=== PATIENT | male | born 1955 | race Caucasian/White ===

== ENCOUNTER 2016-07-27 18:13 | Inpatient (IN) | payer OTHER ==
[2016-07-27] MEDS ORDERED: VANCOMYCIN 1,000 MG in SODIUM CHLORIDE 0.9% 250 ML IVPB ONE (19:05)
--- NOTE | 2016-07-27 19:11 | ED ---
General Adult HPI - General Chief complaint: Skin/Abscess/Foreign Body Stated complaint: infection Time Seen by Provider: 07/27/16 18:38 Source: patient, family, RN notes reviewed, old records reviewed Mode of arrival: ambulatory Limitations: no limitations - History of Present Illness Initial comments: Chief complaint and history of present illness a 61-year-old male with recurrent chronic infections both lower extremities. Patient reports here because his visiting nurse said he has to come and the wounds have become very foul-smelling. Patient reports he's been through wound clinic before, eventually gets better and then reoccurs. - Related Data Home Medications Medication Instructions Recorded Confirmed Fenofibrate Nanocrystallized 145 mg PO DAILY 07/27/16 07/27/16 [Tricor] Finasteride [Proscar] 5 mg PO HS 07/27/16 07/27/16 Gabapentin [Neurontin] 300 mg PO BID 07/27/16 07/27/16 Insulin Glargine,Hum.rec.anlog 60 unit SQ HS 07/27/16 07/27/16 [Lantus Solostar] Metoprolol Tartrate [Lopressor] 100 mg PO BID 07/27/16 07/27/16 Niacin [Niacin ER] 500 mg PO DAILY 07/27/16 07/27/16 Tamsulosin HCl [Flomax] 0.4 mg PO QAM 07/27/16 07/27/16 Warfarin [Coumadin] 1.25 mg PO HS 07/27/16 07/27/16 Allergies Allergy/AdvReac Type Severity Reaction Status Date / Time sulfamethoxazole Allergy Rash/Hives Verified 07/27/16 19:54 [From Bactrim] trimethoprim [From Bactrim] Allergy Rash/Hives Verified 07/27/16 19:54 Review of Systems ROS Statement: Those systems with pertinent positive or pertinent negative responses have been documented in the HPI. Review of systems. Patient denying any headache or visual acuity changes denies chest pain or shortness of breath. Denies abdominal pain. No nausea no vomiting no diarrhea. Patient reports foul-smelling infections from his waist down. He has rather extensive Radhika-type dermatitis from his groin to his buttocks and both lower extremities are wrapped which are being wrapped by a visiting nurse. Cultures being taken of that area. All systems reviewed Past medical problems significant for chronic infections lower extremities. He' s had kidney stones in the past, A. fib on a blood thinner. Insulin-dependent diabetes mellitus, I disorder, hearing disorder hyperlipidemia, hypertension, osteoarthritis, BPH, sleep apnea on CPAP, PVD, patient's surgeries include bladder, abdominal hernia repair tonsillectomy I&D abdominal abscesses. Patient has ALLERGIES to sulfa. Family history no cancers. He does smoke heavily. So heavily that he falls asleep with his cigarette in his hand blackwell his fingers. Obvious risk of a home fire etc. discussed with patient and at bedside. Patient drink alcohol socially. ROS Other: All systems not noted in ROS Statement are negative. Past Medical History Past Medical History: Atrial Fibrillation, Diabetes Mellitus, Eye Disorder, Hearing Disorder / Deafness, Hyperlipidemia, Hypertension, Osteoarthritis (OA), Prostate Disorder, Sleep Apnea/CPAP/BIPAP, Vascular Disorder Additional Past Medical History / Comment(s): Pt fell 01/06/16 and has R humeral fracture and is in a sling. Other HX: NIDDM, irritable bowel syndrome, numerous wounds bilateral legs and feet and an abdominal wound after previous hernia surgery with mesh - has been tx in wound center and has had several debridements, currently being treated in wound center for bilateral lower leg ulcers, charcot Lfoot, hx of diabetic villareal grade 2 bilateral foot ulcers, abdominal wall ulceration with I&D, urinary calculus., BPH, bilateral hands and feet peripheral neuropathy, L eye astigmatism, edentulous. History of Any Multi-Drug Resistant Organisms: MRSA Date of last positivie culture/infection: 12/29/15 MDRO Source:: legs Past Surgical History: Bladder Surgery, Hernia Repair, Tonsillectomy Additional Past Surgical History / Comment(s): I and D abdominal wall ulcer s/p abdominal hernia repair with mesh-infected post op and mesh exposed, wound center tx for bilateral feet ulcers-healed and discharged 03/25/14, current wound center tx for bilateral lower leg ulcers, picc line insertion and removal , cystoscopy which was unsuccessful for removing bladder stone. Past Anesthesia/Blood Transfusion Reactions: No Reported Reaction Past Psychological History: Anxiety, Depression Additional Psychological History / Comment(s): Remains an ongoing daily tobacco smoker. Does have history of alcohol use. Denies difficulty with alcohol use. Denies recreational drug use.He is on medical long term.To begin travels. Noanimalexposures. Ambulates with cane. Drives short distances. Smoking Status: Current every day smoker Past Alcohol Use History: Occasional Additional Past Alcohol Use History / Comment(s): Pt states he started smoking in 1972 and is about a ppd smoker. Pt states he drinks every couple days- a couple whiskeys. Past Drug Use History: None Reported - Past Family History Brother(s) Family Medical History: Cancer Additional Family Medical History / Comment(s): Breast cancer Father Family Medical History: Diabetes Mellitus Additional Family Medical History / Comment(s): Father of a brain tumor in his early 80s Mother Family Medical History: No Reported History Additional Family Medical History / Comment(s): Still living. General Exam - General Exam Comments Initial Comments: General: The patient is awake and alert, complaining of chronic discomfort to his lower extremities. Foul-smelling infections from Radhika-type infection through his genitalia down to his knee and skin infections on his lower extremities right worse than left. Vital signs show temperature 99.3 pulse 100 her story rate 20 pulse ox on percent room air blood pressure 136/82 Eye: Pupils are equal, round and reactive to light, extra-ocular movements are intact ; there is normal conjunctiva bilaterally. No signs of icterus. Ears, nose, mouth and throat: There are moist mucous membranes and no oral lesions. Neck: The neck is supple, there is no tenderness . Cardiovascular: There is a regular rate and rhythm. No murmur, rub or gallop is appreciated. Respiratory: Lungs are clear to auscultation, respirations are non-labored, breath sounds are equal. No wheezes, stridor, rales, or rhonchi. Gastrointestinal: Patient had abdominal surgery with a mesh placed for hernia repair in the midline. Part of the mesh is dry and sticking above the skin. He was told that this is a cosmetic at this time if he wants revision medial [place] for further evaluation. Patient states he is okay with the way it is. No signs of infection in this area Back: There is no tenderness to palpation in the midline. There is no obvious deformity. No rashes noted. Musculoskeletal: The patient has Radhika-type infection from groin through the scrotum to the buttock area to the proximal thighs. Also foul-smelling infections to his lower extremities right worse than left. Neurological: CN II-XII intact, There are no obvious motor or sensory deficits. Coordination appears grossly intact. Speech is normal. Patient states able to ambulate but with assistance. Skin: As noted above Limitations: no limitations Course Vital Signs 07/27/16 18:24 Temperature 99.3 F Pulse Rate 100 Respiratory 20 Rate Blood Pressure 136/82 O2 Sat by Pulse 96 Oximetry Medical Decision Making - Medical Decision Making Medical decision making; case discussed with Dr. Franks patient was admitted to his service. Labs show white count 13.3 hemoglobin 13, crit 42., Potassium 4.2 BUN 17 creatinine 1.0 GFR 60. Glucose 175. - Lab Data Result diagrams: 07/27/16 19:15 07/27/16 19:15 Lab Results 07/27/16 07/27/16 Range/Units 19:15 19:15 WBC 13.3 H (3.8-10.6) k/uL RBC 4.23 L (4.30-5.90) m/uL Hgb 13.3 (13.0-17.5) gm/dL Hct 42.1 (39.0-53.0) % MCV 99.5 (80.0-100.0) fL MCH 31.6 (25.0-35.0) pg MCHC 31.7 (31.0-37.0) g/dL RDW 15.7 H (11.5-15.5) % Plt Count 497 H (150-450) k/uL Neutrophils % 80 % Lymphocytes % 10 % Monocytes % 5 % Eosinophils % 2 % Basophils % 0 % Neutrophils # 10.6 H (1.3-7.7) k/uL Lymphocytes # 1.4 (1.0-4.8) k/uL Monocytes # 0.7 (0-1.0) k/uL Eosinophils # 0.2 (0-0.7) k/uL Basophils # 0.1 (0-0.2) k/uL Macrocytosis Slight Sodium 141 (137-145) mmol/L Potassium 4.2 (3.5-5.1) mmol/L Chloride 101 (98-107) mmol/L Carbon Dioxide 30 (22-30) mmol/L Anion Gap 10 mmol/L BUN 17 (9-20) mg/dL Creatinine 1.00 (0.66-1.25) mg/dL Est GFR (MDRD) Af Amer >60 (>60 ml/min/1.73 sqM) Est GFR (MDRD) Non-Af >60 (>60 ml/min/1.73 sqM) Glucose 175 H (74-99) mg/dL Calcium 8.6 (8.4-10.2) mg/dL Total Bilirubin 0.8 (0.2-1.3) mg/dL AST 26 (17-59) U/L ALT 21 (21-72) U/L Alkaline Phosphatase 88 (38-126) U/L Total Protein 6.9 (6.3-8.2) g/dL Albumin 3.2 L (3.5-5.0) g/dL Disposition Clinical Impression: Cellulitis of left lower extremity Disposition: ADMITTED IP TO THIS HOSP Condition: Serious
[2016-07-27] MEDS ORDERED: AMPICILLIN-SULBACTAM 3 GM in SODIUM CHLORIDE 0.9% 100 ML IVPB STA (19:12)
[2016-07-27 19:46] LABS: Basophils # (A) 0.1 k/uL (0-0.2); Basophils % (A) 0 %; CHCM 32.4; Eosinophils # (A) 0.2 k/uL (0-0.7); Eosinophils % (A) 2 %; HCT 42.1 % (39.0-53.0); HDW 3.23; HGB 13.3 gm/dL (13.0-17.5); Luc # (Auto) 0.34; Luc % (Auto) 3; Lymphocytes # (A) 1.4 k/uL (1.0-4.8); Lymphocytes % (A) 10 %; MCH 31.6 pg (25.0-35.0); MCHC 31.7 g/dL (31.0-37.0); MCV 99.5 fL (80.0-100.0); Macrocytosis Slight; Mean Platelet Volume 7.1; Monocytes # (A) 0.7 k/uL (0-1.0); Monocytes % (A) 5 %; Neutrophils # (A) 10.6 k/uL (1.3-7.7); Neutrophils % (A) 80 %; RBC 4.23 m/uL (4.30-5.90); RDW 15.7 % (11.5-15.5); WBC 13.3 k/uL (3.8-10.6)
[2016-07-27 20:02] LABS: ALT 21 U/L (21-72); AST 26 U/L (17-59); Alkaline Phosphatase 88 U/L (38-126); Anion Gap 10 mmol/L; Blood Urea Nitrogen 17 mg/dL (9-20); Calcium 8.6 mg/dL (8.4-10.2); Carbon Dioxide 30 mmol/L (22-30); Chloride 101 mmol/L (98-107); Glucose 175 mg/dL (74-99); Non-African American GFR(MDRD) >60 (>60 ml/min/1.73 sqM); Potassium 4.2 mmol/L (3.5-5.1); Sodium 141 mmol/L (137-145); Total Bilirubin 0.8 mg/dL (0.2-1.3); Total Protein 6.9 g/dL (6.3-8.2)
[2016-07-27] MEDS ORDERED: NALOXONE 0.4 MG/ML 1 ML VIAL IV PRN (20:10)
[2016-07-27 20:39] LABS: Hemoglobin A1C 6.1 % (4.2-6.1)
[2016-07-27] MEDS ORDERED: WARFARIN 1.25 MG TAB PO SCH (21:00)
[2016-07-27 21:46] LABS: Glucose,Whole Blood 115 mg/dL (75-99)
[2016-07-27] MEDS: SODIUM CHLORIDE 0.9% 1,000 ML IV SCH (22:37)
[2016-07-27] MEDS: FINASTERIDE 5 MG TAB PO SCH (22:41)
[2016-07-27 22:42] LABS: INR 3.1 (<1.1); Prothrombin Time 30.1 sec (9.0-12.0)
[2016-07-27] MEDS: INSULIN LISPRO (humaLOG) 300 UNIT/3 ML VIAL SQ SCH (22:42)
[2016-07-27] MEDS: GABAPENTIN 300 MG CAP PO SCH (22:42)
[2016-07-27] MEDS: METOPROLOL TARTRATE 50 MG TAB PO SCH (22:42)
[2016-07-27 23:23] VITALS: BMI 43.4
[2016-07-27] MEDS: HYDROcodone/APAP 5-325MG 1 EACH TAB PO PRN (23:56)
[2016-07-28] MEDS: NICOTINE 14MG/24HR PATCH TRANSDERM SCH ×3 (01:18→19:10)
[2016-07-28] MEDS: AMPICILLIN-SULBACTAM 3 GM in SODIUM CHLORIDE 0.9% 100 ML IVPB SCH ×2 (04:00→10:44)
[2016-07-28] MEDS: HYDROcodone/APAP 5-325MG 1 EACH TAB PO PRN ×3 (05:56→19:09)
[2016-07-28] MEDS: INSULIN LISPRO (humaLOG) 300 UNIT/3 ML VIAL SQ SCH ×4 (07:37→21:25)
[2016-07-28] MEDS: FENOFIBRATE 160 MG TAB PO SCH (07:38)
[2016-07-28] MEDS: NIACIN TR 500 MG CAPSULE.ER PO SCH (07:38)
[2016-07-28] MEDS: GABAPENTIN 300 MG CAP PO SCH ×2 (07:38→21:23)
[2016-07-28] MEDS: METOPROLOL TARTRATE 50 MG TAB PO SCH ×2 (07:38→21:23)
[2016-07-28] MEDS: TAMSULOSIN 0.4 MG CAP.ER.24H PO SCH (07:45)
[2016-07-28 07:47] LABS: Glucose,Whole Blood 125 mg/dL (75-99)
--- NOTE | 2016-07-28 08:31 | P.HPIM ---
History of Present Illness H&P Date: 07/28/16 Chief Complaint: Bilateral lower extremity cellulitis. This is a history and physical 61-year-old white male who struggles with recurrent and chronic cellulitis. He was placed on antibiotics recently. I typically have given the patient Levaquin. The patient states he is doing quite well until about 2 weeks ago. Currently, he tends to have a very unkempt environment and struggles with significant cleanliness at times. Dr. Kaur has appropriately treated the patient in the past. The patient states fever with chills. No significant chest pain. No shortness of breath. Blood sugar/ diabetes is fairly well controlled. He has an underlying history of peripheral venous insufficiency. Because of his worsening leg and fever with chills, the patient was evaluated in emergency room and appropriately admitted. Review of Systems Constitutional: Reports fever, Reports sweats Eyes: denies blurred vision, denies pain Ears, nose, mouth and throat: Denies headache, Denies sore throat Cardiovascular: Denies chest pain, Denies shortness of breath Respiratory: Denies cough Gastrointestinal: Denies abdominal pain, Denies diarrhea, Denies nausea, Denies vomiting Integumentary: Reports as per HPI, Reports sores Neurological: Denies numbness, Denies weakness Past Medical History Past Medical History: Atrial Fibrillation, Diabetes Mellitus, Eye Disorder, Hearing Disorder / Deafness, Hyperlipidemia, Hypertension, Osteoarthritis (OA), Prostate Disorder, Sleep Apnea/CPAP/BIPAP, Vascular Disorder Additional Past Medical History / Comment(s): Pt fell 01/06/16 R humeral fracture. Other HX: NIDDM, irritable bowel syndrome, numerous wounds bilateral legs and feet and an abdominal wound after previous hernia surgery with mesh - has been tx in wound center and has had several debridements, currently being treated in wound center for bilateral lower leg ulcers, charcot Lfoot, hx of diabetic villareal grade 2 bilateral foot ulcers, abdominal wall ulceration with I&D, urinary calculus., BPH, bilateral hands and feet peripheral neuropathy, L eye astigmatism, edentulous. History of Any Multi-Drug Resistant Organisms: MRSA Date of last positivie culture/infection: 12/29/15 MDRO Source:: legs Past Surgical History: Bladder Surgery, Hernia Repair, Tonsillectomy Additional Past Surgical History / Comment(s): I and D abdominal wall ulcer s/p abdominal hernia repair with mesh-infected post op and mesh exposed, wound center tx for bilateral feet ulcers-healed and discharged 03/25/14, current wound center tx for bilateral lower leg ulcers, picc line insertion and removal , cystoscopy which was unsuccessful for removing bladder stone. Past Anesthesia/Blood Transfusion Reactions: No Reported Reaction Past Psychological History: Anxiety, Depression Additional Psychological History / Comment(s): Remains an ongoing daily tobacco smoker. Does have history of occasional alcohol use. Denies difficulty with alcohol use. Denies recreational drug use.He is on medical skilled nursing.To begin travels. Noanimalexposures. Ambulates with cane. Drives short distances. Smoking Status: Current every day smoker Past Alcohol Use History: Occasional Additional Past Alcohol Use History / Comment(s): Pt states he started smoking in 1972 and is about a ppd smoker. Pt states he drinks every couple days- a couple whiskeys. Past Drug Use History: None Reported - Past Family History Brother(s) Family Medical History: Cancer Additional Family Medical History / Comment(s): Breast cancer Father Family Medical History: Diabetes Mellitus Additional Family Medical History / Comment(s): Father of a brain tumor in his early 80s Mother Family Medical History: No Reported History Additional Family Medical History / Comment(s): Still living. Medications and Allergies Home Medications Medication Instructions Recorded Confirmed Type Fenofibrate Nanocrystallized 145 mg PO DAILY 07/27/16 07/27/16 History [Tricor] Finasteride [Proscar] 5 mg PO HS 07/27/16 07/27/16 History Gabapentin [Neurontin] 300 mg PO BID 07/27/16 07/27/16 History Insulin Glargine,Hum.rec.anlog 60 unit SQ 07/27/16 07/27/16 History [Lantus Solostar] Metoprolol Tartrate [Lopressor] 100 mg PO BID 07/27/16 07/27/16 History Niacin [Niacin ER] 500 mg PO DAILY 07/27/16 07/27/16 History Tamsulosin HCl [Flomax] 0.4 mg PO QAM 07/27/16 07/27/16 History Warfarin [Coumadin] 1.25 mg PO HS 07/27/16 07/27/16 History Allergies Allergy/AdvReac Type Severity Reaction Status Date / Time sulfamethoxazole Allergy Rash/Hives Verified 07/27/16 19:54 [From Bactrim] trimethoprim [From Bactrim] Allergy Rash/Hives Verified 07/27/16 19:54 Physical Exam Vitals: Vital Signs Temp Pulse Pulse Resp BP BP BP 07/28/16 07:55 20 07/28/16 07:00 97.2 F L 99 20 126/92 07/27/16 23:00 97.4 F L 122 H 20 142/91 07/27/16 20:30 97.3 F L 92 20 148/76 Pulse Ox 07/28/16 07:55 07/28/16 07:00 95 07/27/16 23:00 96 07/27/16 20:30 94 L Intake and Output 07/27/16 07/28/16 07/28/16 22:59 06:59 14:59 Other: Voiding Method Toilet # Voids 1 Weight 141.5 kg - Constitutional General appearance: obese - EENT Eyes: EOMI - Neck Neck: no lymphadenopathy - Respiratory Respiratory: bilateral: CTA - Cardiovascular Rhythm: irregularly irregular Heart sounds: normal: S1, S2 - Gastrointestinal General gastrointestinal: soft, no tenderness - Integumentary Right greater than left lower stomach cellulitis. There is 2 ulcerations noted also. Integumentary: cellulitis - Neurologic Neurologic: CNII-XII intact Results CBC & Chem 7: 07/27/16 19:15 07/27/16 19:15 Labs: Abnormal Lab Results - Last 24 Hours (Table) 07/27/16 07/27/16 07/28/16 Range/Units 21:42 22:19 07:27 PT 30.1 H (9.0-12.0) sec POC Glucose (mg/dL) 115 H 125 H (75-99) mg/dL Thrombosis Risk Factor Assmnt - Choose All That Apply Any of the Below Risk Factors Present?: Yes Each Factor Represents 1 point: Obesity (BMI >25), Swollen legs (current) Other Risk Factors: Yes Each Risk Factor Represents 2 Points: Age 61-74 years Other congenital or acquired thrombophilia - If yes, enter type in comment: No Thrombosis Risk Factor Assessment Total Risk Factor Score: 4 Thrombosis Risk Factor Assessment Level: Moderate Risk Assessment and Plan (1) Cellulitis of left lower extremity Status: Acute (2) Cellulitis of right leg Status: Acute (3) Charcot foot due to diabetes mellitus Status: Acute (4) Smoking Status: Acute (5) Venous stasis ulcers of both lower extremities Status: Acute Plan: Consultation Dr. Kaur. The patient will be placed on appropriate vancomycin and appropriate Unasyn. Diabetes controlled with sliding scale. Check CBC and see me in a.m. PT/INR slightly elevated. We will check an a.m. and then most likely restart his Coumadin because of atrial fibrillation. Prognosis is guarded secondary to multiple comorbidities and history of somewhat Dirty environment. See orders otherwise.
[2016-07-28] MEDS ORDERED: PANTOPRAZOLE 40 MG/10 ML VIAL IV SCH (09:00)
[2016-07-28 09:11] LABS: HCT 42.1 % (39.0-53.0); HGB 12.7 gm/dL (13.0-17.5); MCH 30.8 pg (25.0-35.0); MCHC 30.1 g/dL (31.0-37.0); MCV 102.4 fL (80.0-100.0); RBC 4.11 m/uL (4.30-5.90); WBC 11.8 k/uL (3.8-10.6); WBC (Perox) 12.78
[2016-07-28 09:12] LABS: Anisocytosis Slight; Basophils # (A) 0.1 k/uL (0-0.2); Basophils % (A) 1 %; CH 31.5; CHCM 30.9; Eosinophils # (A) 0.3 k/uL (0-0.7); Eosinophils % (A) 3 %; HDW 3.13; Hypochromasia Moderate; Luc % (Auto) 2; Lymphocytes # (A) 1.3 k/uL (1.0-4.8); Lymphocytes % (A) 11 %; Macrocytosis Moderate; Mean Platelet Volume 7.6; Monocytes # (A) 0.5 k/uL (0-1.0); Monocytes % (A) 4 %; Neutrophils # (A) 9.5 k/uL (1.3-7.7); Neutrophils % (A) 81 %; RDW 16.1 % (11.5-15.5)
[2016-07-28 09:13] LABS: INR 3.8 (<1.1); Prothrombin Time 36.9 sec (9.0-12.0)
[2016-07-28] MEDS: SODIUM CHLORIDE 0.9% 1,000 ML IV SCH ×2 (10:44→21:24)
[2016-07-28 12:06] LABS: Glucose,Whole Blood 159 mg/dL (75-99)
[2016-07-28] MEDS: ceFAZolin 2 GM in SODIUM CHLORIDE 0.9% 100 ML IVPB SCH ×2 (16:44→23:19)
[2016-07-28 17:28] LABS: Glucose,Whole Blood 153 mg/dL (75-99)
[2016-07-28 21:09] LABS: Glucose,Whole Blood 171 mg/dL (75-99)
[2016-07-28] MEDS: FINASTERIDE 5 MG TAB PO SCH (21:23)
[2016-07-28] MEDS: WARFARIN 1.25 MG TAB PO SCH (21:24)
[2016-07-29] MEDS: HYDROcodone/APAP 5-325MG 1 EACH TAB PO PRN ×4 (00:52→20:22)
[2016-07-29] MEDS: ACETAMINOPHEN TAB 325 MG TAB PO PRN (03:24)
--- NOTE | 2016-07-29 07:12 | CONS ---
DATE OF CONSULTATION: 07/28/2016 REASON FOR CONSULTATION: Bilateral lower extremity venostasis ulcer and cellulitis. HISTORY OF PRESENT ILLNESS: The patient is a 61-year-old male with past medical history significant for recurrent venostasis ulcer to the lower extremities and cellulitis where the patient had been treated in the [facility] [place] and last evaluated by Dr. Danny dent in February 2016. Patient said the wound has healed by then. However, over the last few weeks it had become more swollen and red. He did have some blister that ruptured and superficial ulceration. Patient complaining of significant drainage. Foul smelling. The patient had been evaluated by the home care nurse who advised the patient to go to the hospital. The patient denies any high grade fever, though did have some chills and did have some dull pain in the legs, 2 to 3 out of 10 and no radiation. Patient has been started on Unasyn. ID was consulted for further recommendation regarding antibiotic therapy. REVIEW OF SYSTEMS: CONSTITUTIONAL: Positive for weakness and chills. EYES: No complaint. ENT: No complaint. RESPIRATORY: Shortness of breath. CARDIOVASCULAR: Shortness of breath. Lower extremity swelling. GENITOURINARY: No complaint. GASTROINTESTINAL: No complaint. MUSCULOSKELETAL: No complaint. INTEGUMENTARY: As per HPI. PSYCHOLOGIC: No complaint. ENDOCRINAL: No complaint. NEUROLOGIC: No complaint. PAST MEDICAL HISTORY: Atrial fibrillation, diabetes mellitus, hypertension, hyperlipidemia, osteoarthritis, BPH, sleep apnea, and lower extremity venostasis ulcers, irritable bowel syndrome, previous history of MRSA infection. PAST SURGICAL HISTORY: Tonsillectomy, hernia repair, bladder surgery, I&D of abdominal wall ulcer. SOCIAL HISTORY: The patient currently every day smoker. Smoked since 1972. Occasionally drinks. Denies any drug use. FAMILY HISTORY: Sister with history of bladder cancer. Father with history of diabetes, who from brain tumor. ALLERGIES: BACTRIM. Medications currently include the patient is on Tylenol, [place], Unasyn, Proscar, Neurontin, Humalog, Lopressor, Narcan, niacin, nicotine patch, Protonix, Coumadin and Flomax. On examination, blood pressure is 124/75 with a pulse 97, temperature 98.7. He is 95% on room air. General description is a middle-age male lying in bed in no distress. No tachypnea or accessory muscle of respiration use. HEENT no pallor or scleral icterus. Oral mucous membrane is dry. NECK: Trachea central. There is no thyromegaly. LUNGS: Unlabored breathing. Clear to auscultation anteriorly. HEART: S1, S2. Irregular rhythm. ABDOMEN: Soft. No tenderness. EXTREMITIES: With 2+ edema of feet with some superficial ulceration more marked on the right leg with some foul smelling drainage and a skin laceration with erythema. NEUROLOGICAL: The patient is awake, alert, oriented x3. Mood and affect normal. LABS: Hemoglobin is 12.7, white count 11.8 with BUN of 17, creatinine 1.0. DIAGNOSTIC IMPRESSION AND PLAN: Patient with bilateral lower extremity venostasis ulcer with superficial cellulitis with diffuse swelling and redness. The patient is noted to have history of chronic disease more likely representing a Streptococcal cellulitis. PLAN: 1. Discontinue this Unasyn. 2. Will apply Aquacel Silver dressing to the open area followed by an ABD and then Christofer wrap from just above the toe to below the knee. 3. Cefazolin 2 grams q.8 hour. 4. Will follow up on the clinical condition and cultures to further adjust the medication if needed. Thank you for this consultation. We will follow this patient along with you. MENA
[2016-07-29 07:47] LABS: Glucose,Whole Blood 127 mg/dL (75-99)
[2016-07-29] MEDS: INSULIN LISPRO (humaLOG) 300 UNIT/3 ML VIAL SQ SCH ×4 (07:53→23:11)
[2016-07-29] MEDS: PANTOPRAZOLE 40 MG TABLET PO SCH (08:01)
[2016-07-29] MEDS: TAMSULOSIN 0.4 MG CAP.ER.24H PO SCH (08:05)
[2016-07-29] MEDS: FENOFIBRATE 160 MG TAB PO SCH (08:05)
[2016-07-29] MEDS: METOPROLOL TARTRATE 50 MG TAB PO SCH ×2 (08:05→20:21)
[2016-07-29] MEDS: SODIUM CHLORIDE 0.9% 1,000 ML IV SCH ×2 (08:06)
[2016-07-29] MEDS: NIACIN TR 500 MG CAPSULE.ER PO SCH (08:06)
[2016-07-29] MEDS: GABAPENTIN 300 MG CAP PO SCH ×2 (08:06→20:18)
[2016-07-29] MEDS ORDERED: ZOLPIDEM 5 MG TAB PO PRN (08:14)
--- NOTE | 2016-07-29 08:15 | P.PN ---
Subjective Principal diagnosis: bilateral lower extremity cellulitis/continuing care. This is a continuing progress note on a 61-year-old white male essentially admitted for recurrent and chronic venous stasis with cellulitis element. Gram- negative bacilli is grown on skin culture. Infectious disease consulted. The patient is currently on. This will most likely be adjusted and I will defer to infectious disease once culture is reported for sensitivity. No significant fever. Some sleep issue element. He has an underlying history of atrial fibrillation. No voiding difficulties are stated. Objective - Vital Signs Vital signs: Vital Signs Temp 96.9 F L 07/29/16 01:03 Pulse 93 07/29/16 01:03 Resp 17 07/29/16 01:03 BP 132/72 07/29/16 01:03 Pulse Ox 98 07/29/16 01:03 Intake & Output 07/28/16 07/29/16 07/29/16 18:59 06:59 18:59 Intake Total 80 Balance 80 Intake: IV 80 Sodium Chloride 0.9% 1, 80 000 ml @ 80 mls/hr IV . [id number] [facility] Rx#:[id number] Other: Voiding Method Toilet Toilet # Voids 1 1 - Constitutional General appearance: Present: obese - EENT Eyes: Absent: abnormal pupil - Respiratory Respiratory: bilateral: CTA - Cardiovascular Rhythm: irregularly irregular Heart sounds: normal: S1, S2 - Gastrointestinal General gastrointestinal: Present: soft. Absent: tenderness - Integumentary Integumentary: Present: cellulitis - Neurologic Neurologic: Present: CNII-XII intact. Absent: focal deficits - Labs CBC & Chem 7: 07/28/16 08:55 07/27/16 19:15 Labs: Abnormal Lab Results - Last 24 Hours (Table) 07/28/16 07/28/16 07/28/16 Range/Units 08:55 08:55 11:51 WBC 11.8 H (3.8-10.6) k/uL RBC 4.11 L (4.30-5.90) m/uL Hgb 12.7 L (13.0-17.5) gm/dL MCV 102.4 H (80.0-100.0) fL MCHC 30.1 L (31.0-37.0) g/dL RDW 16.1 H (11.5-15.5) % Plt Count 476 H (150-450) k/uL Neutrophils # 9.5 H (1.3-7.7) k/uL PT 36.9 H (9.0-12.0) sec POC Glucose (mg/dL) 159 H (75-99) mg/dL 07/28/16 07/28/16 07/29/16 Range/Units 17:12 21:07 07:45 WBC (3.8-10.6) k/uL RBC (4.30-5.90) m/uL Hgb (13.0-17.5) gm/dL MCV (80.0-100.0) fL MCHC (31.0-37.0) g/dL RDW (11.5-15.5) % Plt Count (150-450) k/uL Neutrophils # (1.3-7.7) k/uL PT (9.0-12.0) sec POC Glucose (mg/dL) 153 H 171 H 127 H (75-99) mg/dL Assessment and Plan (1) Cellulitis of left lower extremity Status: Acute (2) Cellulitis of right leg Status: Acute (3) Charcot foot due to diabetes mellitus Status: Acute (4) Smoking Status: Acute (5) Venous stasis ulcers of both lower extremities Status: Acute Plan: we'll go ahead and await culture and sensitivity for gram-negative treatment area Check CBC CMP and PT/INR in a.m. Add a sleep agent such as Ambien to his regimen as per requested. Time with Patient: Less than 30
[2016-07-29 08:16] LABS: CH 31.2; CHCM 31.6; HCT 39.1 % (39.0-53.0); HDW 3.36; HGB 12.5 gm/dL (13.0-17.5); Hypochromasia Slight; MCH 31.7 pg (25.0-35.0); MCHC 31.9 g/dL (31.0-37.0); MCV 99.4 fL (80.0-100.0); Macrocytosis Slight; RBC 3.94 m/uL (4.30-5.90); RDW 15.8 % (11.5-15.5); WBC 10.2 k/uL (3.8-10.6)
[2016-07-29 08:18] LABS: Prothrombin Time 39.4 sec (9.0-12.0)
[2016-07-29 08:35] LABS: ALT 21 U/L (21-72); AST 15 U/L (17-59); Alkaline Phosphatase 73 U/L (38-126); Anion Gap 11 mmol/L; Blood Urea Nitrogen 16 mg/dL (9-20); Calcium 8.6 mg/dL (8.4-10.2); Carbon Dioxide 25 mmol/L (22-30); Chloride 100 mmol/L (98-107); Glucose 122 mg/dL (74-99); Non-African American GFR(MDRD) >60 (>60 ml/min/1.73 sqM); Potassium 4.2 mmol/L (3.5-5.1); Sodium 136 mmol/L (137-145); Total Bilirubin 0.9 mg/dL (0.2-1.3); Total Protein 6.4 g/dL (6.3-8.2)
[2016-07-29] MEDS: ceFAZolin 2 GM in SODIUM CHLORIDE 0.9% 100 ML IVPB SCH ×2 (09:34→16:27)
[2016-07-29 11:36] LABS: Glucose,Whole Blood 208 mg/dL (75-99)
[2016-07-29 17:25] LABS: Glucose,Whole Blood 175 mg/dL (75-99)
[2016-07-29] MEDS: NICOTINE 14MG/24HR PATCH TRANSDERM SCH (20:12)
[2016-07-29] MEDS: FINASTERIDE 5 MG TAB PO SCH (20:18)
[2016-07-29] MEDS: WARFARIN 1.25 MG TAB PO SCH (20:19)
[2016-07-29 21:06] LABS: Glucose,Whole Blood 214 mg/dL (75-99)
[2016-07-30] MEDS: cefTRIAXone 2,000 MG in SODIUM CHLORIDE 0.9% 100 ML IVPB SCH ×2 (00:32→20:29)
[2016-07-30] MEDS: SODIUM CHLORIDE 0.9% 1,000 ML IV SCH ×3 (04:27→23:27)
[2016-07-30] MEDS: HYDROcodone/APAP 5-325MG 1 EACH TAB PO PRN ×3 (05:39→19:32)
[2016-07-30 07:48] LABS: Glucose,Whole Blood 152 mg/dL (75-99)
--- NOTE | 2016-07-30 08:42 | P.PN ---
Subjective Principal diagnosis: bilateral lower extremity cellulitis/continuing care. This is a continue present on a 61-year-old white male essentially admitted for bilateral lower extremities saw cellulitis on the right lower extremity greater than left. He has an underlying history of venous stasis disease, atrial fibrillation and history of fairly well-controlled diabetes. The patient's wound culture has grown gram-negative bacilli which is sensitive to cefuroxime/ Rocephin. Infectious disease has switched to this product at this time. He states no side effects from medication at this point. He states no fever or chills since about 48 hours. No significant diarrhea or voiding difficulties are noted. He seems to be ambulatory. His strength is also improving. Objective - Vital Signs Vital signs: Vital Signs Temp 97.4 F L 07/30/16 07:00 Pulse 69 07/30/16 07:00 Resp 16 07/30/16 07:00 BP 138/69 07/30/16 07:00 Pulse Ox 93 L 07/30/16 07:00 Intake & Output 07/29/16 07/30/16 07/30/16 18:59 06:59 18:59 Intake Total 640 540 Balance 640 540 Intake: IV 640 Sodium Chloride 0.9% 1, 640 000 ml @ 80 mls/hr IV . [id number] [facility] Rx#:[id number] Oral 540 Other: Voiding Method Toilet Toilet # Voids 5 4 1 - Constitutional General appearance: Present: obese - EENT Eyes: Absent: abnormal pupil - Neck Thyroid: bilateral: normal size - Respiratory Respiratory: bilateral: CTA - Cardiovascular Rhythm: irregularly irregular Heart sounds: normal: S1, S2 - Integumentary Integumentary Comment(s): cellulitis is improving in the right lower extremity as far as the amount of erythema. Integumentary: Present: cellulitis - Neurologic Neurologic: Present: CNII-XII intact - Musculoskeletal Musculoskeletal: Absent: gait normal - Psychiatric Psychiatric: Present: A&O x's 3 - Labs CBC & Chem 7: 07/29/16 07:44 07/29/16 07:44 Labs: Abnormal Lab Results - Last 24 Hours (Table) 07/29/16 07/29/16 07/29/16 Range/Units 11:34 17:24 20:36 POC Glucose (mg/dL) 208 H 175 H 214 H (75-99) mg/dL 07/30/16 Range/Units 07:28 POC Glucose (mg/dL) 152 H (75-99) mg/dL Assessment and Plan (1) Cellulitis of left lower extremity Status: Acute (2) Cellulitis of right leg Status: Acute (3) Charcot foot due to diabetes mellitus Status: Acute (4) Smoking Status: Acute (5) Venous stasis ulcers of both lower extremities Status: Acute Plan: continue current regimen of antibiotic treatment for the next 24-48 hours. Discharge on by mouth oral antibiotics in the next day or 2if continued contractor he of lower extremity improvement. Dr. Lilly's group will be covering for the weekend. The patient is becoming more stable. Check CBC and CMP in a.m.
[2016-07-30 09:10] LABS: INR 3.2 (<1.1); Prothrombin Time 31.1 sec (9.0-12.0)
[2016-07-30] MEDS: METOPROLOL TARTRATE 50 MG TAB PO SCH ×2 (09:22→20:30)
[2016-07-30] MEDS: FENOFIBRATE 160 MG TAB PO SCH (09:23)
[2016-07-30] MEDS: NIACIN TR 500 MG CAPSULE.ER PO SCH (09:23)
[2016-07-30] MEDS: NICOTINE 14MG/24HR PATCH TRANSDERM SCH (09:24)
[2016-07-30] MEDS: PANTOPRAZOLE 40 MG TABLET PO SCH (09:24)
[2016-07-30] MEDS: GABAPENTIN 300 MG CAP PO SCH ×2 (09:24→20:29)
[2016-07-30] MEDS: TAMSULOSIN 0.4 MG CAP.ER.24H PO SCH (09:24)
[2016-07-30] MEDS: INSULIN LISPRO (humaLOG) 300 UNIT/3 ML VIAL SQ SCH ×4 (09:31→20:31)
--- NOTE | 2016-07-30 09:48 | PN ---
DATE OF SERVICE: 07/29/2016 Reason for followup is bilateral lower extremity venostasis ulcer with secondary cellulitis. INTERVAL HISTORY: The patient is afebrile. Has been breathing comfortably. Denies significant chest or cough. No abdominal pain. Overall swelling and redness of the legs slightly improved and drainage has decreased. On examination, blood pressure 157/92 with a pulse of 94, temperature 97.5. He is 93% on room air. General description is a middle aged male lying in bed in no distress. RESPIRATORY SYSTEM: Unlabored breathing. Clear to auscultation anteriorly. HEART: S1, S2. Regular rate and rhythm. ABDOMEN: Soft, no tenderness. Bilateral legs are currently wrapped up. Overall, swelling has decreased. LABS: Hemoglobin is 12.5, white count 10.2 with a BUN 16 and creatinine 0.99. Wound culture with Klebsiella and Proteus vulgaris. DIAGNOSTIC IMPRESSION AND PLAN: Patient with bilateral lower extremity venostasis ulcer with secondary cellulitis. Wound infection most gram negative. Antibiotic will be adjusted to Rocephin 2 grams daily. Continue with Christofer wrap to keep the swelling down and evaluate the wound tomorrow.
[2016-07-30 11:30] LABS: Glucose,Whole Blood 129 mg/dL (75-99)
--- NOTE | 2016-07-30 12:58 | XR ---
EXAMINATION TYPE: XR chest 1V portable DATE OF EXAM: 07/30/2016 10:07 AM COMPARISON: Prior chest x-ray third of February 2016 HISTORY: Extended-care facility rehabilitation placement TECHNIQUE: Single frontal view of the chest is obtained. FINDINGS: Technique is apical lordotic and rotated. Rotation accentuates the appearance of the heart . There is no evident pneumonia, pneumothorax, or pleural effusion. Surgical clips present in the upp er abdomen. The lucency superimposed over the heart is indeterminate. IMPRESSION: Rotated exam. Indeterminate lucency over the lower left chest. No acute cardiopulmonary disease is evident.
--- NOTE | 2016-07-30 15:46 | P.GSCN ---
History of Present Illness History of present illness: 61 male, his been admitted with recurrent history of cellulitis of both lower extremity patient is known to me from the wound clinic he has history of venous stasis ulcer both lower extremity patient has been treated with the endovenous laser in in the the past this time patient has been admitted with cellulitis of the both lower extremity with a necrotic wound on the right heel patient also has history of MRSA in the past the right heel and has a necrotic wound measurement is 5 x 4 cm Medical history the History of atrial fibrillation, history of diabetes, history of hypertension, history of sleep apnea, history of some smoking, On examination patient neck is supple no bruit appreciated chest examination chest is clear Abdomen soft nontender vascular examination femoral pulses are palpable patient has a marked redness or swelling of the both lower extremity with necrotic wound to the right heel. Plan debridement of the wound patient is on IV antibiotic Past Medical History Past Medical History: Atrial Fibrillation, Diabetes Mellitus, Eye Disorder, Hearing Disorder / Deafness, Hyperlipidemia, Hypertension, Osteoarthritis (OA), Prostate Disorder, Sleep Apnea/CPAP/BIPAP, Vascular Disorder Additional Past Medical History / Comment(s): Pt fell 01/06/16 R humeral fracture. Other HX: NIDDM, irritable bowel syndrome, numerous wounds bilateral legs and feet and an abdominal wound after previous hernia surgery with mesh - has been tx in wound center and has had several debridements, currently being treated in wound center for bilateral lower leg ulcers, charcot Lfoot, hx of diabetic villareal grade 2 bilateral foot ulcers, abdominal wall ulceration with I&D, urinary calculus., BPH, bilateral hands and feet peripheral neuropathy, L eye astigmatism, edentulous. History of Any Multi-Drug Resistant Organisms: MRSA Year Discovered:: 12/29/15 MDRO Source:: legs Past Surgical History: Bladder Surgery, Hernia Repair, Tonsillectomy Additional Past Surgical History / Comment(s): I and D abdominal wall ulcer s/p abdominal hernia repair with mesh-infected post op and mesh exposed, wound center tx for bilateral feet ulcers-healed and discharged 03/25/14, current wound center tx for bilateral lower leg ulcers, picc line insertion and removal , cystoscopy which was unsuccessful for removing bladder stone. Past Anesthesia/Blood Transfusion Reactions: No Reported Reaction Past Psychological History: Anxiety, Depression Additional Psychological History / Comment(s): Remains an ongoing daily tobacco smoker. Does have history of occasional alcohol use. Denies difficulty with alcohol use. Denies recreational drug use.He is on medical long term.To begin travels. Noanimalexposures. Ambulates with cane. Drives short distances. Smoking Status: Current every day smoker Past Alcohol Use History: Occasional Additional Past Alcohol Use History / Comment(s): Pt states he started smoking in 1972 and is about a ppd smoker. Pt states he drinks every couple days- a couple whiskeys. Past Drug Use History: None Reported - Past Family History Brother(s) Family Medical History: Cancer Additional Family Medical History / Comment(s): Breast cancer Father Family Medical History: Diabetes Mellitus Additional Family Medical History / Comment(s): Father of a brain tumor in his early 80s Mother Family Medical History: No Reported History Additional Family Medical History / Comment(s): Still living. Medications and Allergies Home Medications Medication Instructions Recorded Confirmed Type Fenofibrate Nanocrystallized 145 mg PO DAILY 07/27/16 07/27/16 History [Tricor] Finasteride [Proscar] 5 mg PO 07/27/16 07/27/16 History Gabapentin [Neurontin] 300 mg PO BID 07/27/16 07/27/16 History Insulin Glargine,Hum.rec.anlog 60 unit SQ 07/27/16 07/27/16 History [Lantus Solostar] Metoprolol Tartrate [Lopressor] 100 mg PO BID 07/27/16 07/27/16 History Niacin [Niacin ER] 500 mg PO DAILY 07/27/16 07/27/16 History Tamsulosin HCl [Flomax] 0.4 mg PO QAM 07/27/16 07/27/16 History Warfarin [Coumadin] 1.25 mg PO 07/27/16 07/27/16 History Allergies Allergy/AdvReac Type Severity Reaction Status Date / Time sulfamethoxazole Allergy Rash/Hives Verified 07/27/16 19:54 [From Bactrim] trimethoprim [From Bactrim] Allergy Rash/Hives Verified 07/27/16 19:54 Surgical - Exam Vital Signs Temp Pulse Resp BP Pulse Ox 99.3 F 100 20 136/82 96 07/27/16 18:24 07/27/16 18:24 07/27/16 18:24 07/27/16 18:24 07/27/16 18:24 Results - Labs 07/29/16 07:44 07/29/16 07:44 Abnormal Lab Results - Last 24 Hours (Table) 07/29/16 07/29/16 07/30/16 Range/Units 17:24 20:36 07:28 PT (9.0-12.0) sec POC Glucose (mg/dL) 175 H 214 H 152 H (75-99) mg/dL 07/30/16 07/30/16 Range/Units 08:26 11:29 PT 31.1 H (9.0-12.0) sec POC Glucose (mg/dL) 129 H (75-99) mg/dL
--- NOTE | 2016-07-30 15:48 | P.WCSRGD ---
Wound Ctr Surgical Debridement Diagnoses is pressure ulcer right heel Padilla grade 2 with necrotic skin measurement is 5 x 4 cm Debridement of the wound down to separate his tissue patient was seen in the room right heel was prepped and is prepared manner this patient has a neuropathy and has no feeling in the right foot using sharp knife we excise the the necrotic down to separate his tissue all the necrotic tissue was excised there was some bleeding noted which was controlled by pressure wound was irrigated with saline and central cream applied to the wound plan is we will use Santyl cream on daily basis and patient will need debridement on Tuesday follow with you thank you
[2016-07-30] MEDS: COLLAGENASE 250 UNIT/GM OINTMENT 30 GM TUBE TOPICAL SCH (15:54)
[2016-07-30 17:23] LABS: Glucose,Whole Blood 142 mg/dL (75-99)
[2016-07-30] MEDS: FINASTERIDE 5 MG TAB PO SCH (20:29)
[2016-07-30 20:30] LABS: Glucose,Whole Blood 226 mg/dL (75-99)
[2016-07-30] MEDS: WARFARIN 1.25 MG TAB PO SCH (20:31)
[2016-07-30] MEDS: ACETAMINOPHEN TAB 325 MG TAB PO PRN (20:41)
[2016-07-31] MEDS: HYDROcodone/APAP 5-325MG 1 EACH TAB PO PRN ×4 (01:00→19:01)
[2016-07-31] MEDS: GABAPENTIN 300 MG CAP PO SCH ×2 (07:31→21:43)
[2016-07-31] MEDS: FENOFIBRATE 160 MG TAB PO SCH (07:31)
[2016-07-31] MEDS: NIACIN TR 500 MG CAPSULE.ER PO SCH (07:31)
[2016-07-31] MEDS: PANTOPRAZOLE 40 MG TABLET PO SCH (07:31)
[2016-07-31] MEDS: TAMSULOSIN 0.4 MG CAP.ER.24H PO SCH (07:31)
[2016-07-31] MEDS: METOPROLOL TARTRATE 50 MG TAB PO SCH ×2 (07:31→21:43)
[2016-07-31 07:40] LABS: Glucose,Whole Blood 164 mg/dL (75-99)
[2016-07-31] MEDS: INSULIN LISPRO (humaLOG) 300 UNIT/3 ML VIAL SQ SCH ×4 (07:58→21:44)
--- NOTE | 2016-07-31 10:39 | PN ---
DATE OF SERVICE: 07/30/2016 Reason for follow up is bilateral lower extremity venostasis ulcer and right heel pressure ulcer with possible abscess. INTERVAL HISTORY: The patient is afebrile. Has been breathing comfortably. Denies significant chest pain. No cough. no abdominal pain or any worsening pain in the leg area. On examination, blood pressure 135/85 with a pulse of 89, temperature of 97.4. He is 94% on room air. General description is a middle-aged male, lying in bed in no distress. RESPIRATORY SYSTEM: Unlabored breathing. Clear to auscultation anteriorly. HEART: S1, S2. Regular rate and rhythm. ABDOMEN: Soft, no tenderness. Lower extremity wounds are drying out. The patient does have boggy feeling to the right heel area with possible abscess. LABS: Hemoglobin is 12.5, white count 10.2. BUN of 16, creatinine 0.99. DIAGNOSTIC IMPRESSION AND PLAN: Patient with bilateral lower extremity venostasis ulcer with cellulitis also with heel pressure ulcer and possible abscess for which Vascular Surgery has been consulted for I&D. Patient will continue on Rocephin 2 grams daily to cover for the gram-negative he has grown in his wounds. The patient will follow with Dr. Kaur as of tomorrow to whom the patient is known. Continue local wound care with Aquacel Silver and Christofer wrap.
[2016-07-31 11:40] LABS: Glucose,Whole Blood 142 mg/dL (75-99)
[2016-07-31] MEDS: SODIUM CHLORIDE 0.9% 1,000 ML IV SCH (12:26)
[2016-07-31] MEDS: NICOTINE 14MG/24HR PATCH TRANSDERM SCH ×2 (12:48→22:29)
[2016-07-31] MEDS: COLLAGENASE 250 UNIT/GM OINTMENT 30 GM TUBE TOPICAL SCH (14:33)
[2016-07-31] MEDS: WARFARIN 1 MG TAB PO SCH (16:40)
[2016-07-31 17:04] LABS: Glucose,Whole Blood 171 mg/dL (75-99)
--- NOTE | 2016-07-31 17:40 | P.PN ---
Subjective Principal diagnosis: Bilateral lower extremity cellulitis, ulceration of right heel 61-year-old male with a history of obesity, chronic venous stasis, diabetes mellitus type 2 poorly controlled for many years and obesity presented to hospital with bilateral lower extremity ulcerations as well as a new ulceration to his right heel. The patient is well-known to the wound healing Center, and Dr. Delgado. He's had difficulty with significant bilateral lower extremity venous stasis with ulcerations in the past. He has been seen by the surgeon and has had treatment to his varicosities. Apparently was doing well until the acute current worsening of his lower extremity edema. Ulceration, cellulitis swelling and drainage of all occurred. He is unclear of how we developed an ulceration to his heel. He relates his shoes don't fit. He spends all his time in a lazy boy recliner. He spends no time in bed. He walks very little. Objective - Vital Signs Vital signs: Vital Signs Temp 97.7 F 07/31/16 15:00 Pulse 104 H 07/31/16 15:53 Resp 17 07/31/16 15:53 BP 142/90 07/31/16 15:00 Pulse Ox 95 07/31/16 15:00 Intake & Output 07/30/16 07/31/16 07/31/16 18:59 06:59 18:59 Intake Total 5479 860 2104 Balance 8332 102 3345 Intake: IV 640 400 Sodium Chloride 0.9% 1, 640 400 000 ml @ 80 mls/hr IV . [id number] [facility] Rx#:[id number] Oral [phone] Other: Voiding Method Toilet Toilet Toilet # Voids 1 3 3 # Bowel Movements 1 - Exam Pleasant obese 61-year-old male who is comfortable at this time. HEENT: Anicteric conjunctiva are pink and moist nasal mucosa grossly intact without significant lesions, there is no thrush. Neck: The neck is supple without significant lymphadenopathy or thyromegaly. Lungs: Symmetrical air entry. Expiratory wheezes are scattered the lung manrique. No julian bronchial sounds. He does have a history of extensive tobacco use. Heart: Irregular with an audible S1 and S2 soft S4 no no murmur is noted. Abdomen: Obese, Positive bowel sounds soft and nontender without palpable masses or organomegaly. There was no guarding or rebound. Extremities: The upper extremities have excellent pulses they are symmetric, no significant petechiae or telangiectasia. No splinter hemorrhages were noted. The bilateral lower extremities have evidence of some edema. The open ulcerations are seen on the right pretibial area dorsum of the foot. In the debrided heel ulceration is noted. Left leg has just some erythema without significant weeping at this time. Lack of significant tenderness is noted in either area. Neuro: Awake alert oriented to person place and time. There are no acute new gross focal sensory motor deficits. Positive peripheral neuropathy noted. - Labs CBC & Chem 7: 07/29/16 07:44 07/29/16 07:44 Labs: Abnormal Lab Results - Last 24 Hours (Table) 07/30/16 07/31/16 07/31/16 Range/Units 20:28 07:05 07:07 PT 29.0 H (9.0-12.0) sec POC Glucose (mg/dL) 226 H 164 H (75-99) mg/dL 07/31/16 07/31/16 Range/Units 11:35 16:58 PT (9.0-12.0) sec POC Glucose (mg/dL) 142 H 171 H (75-99) mg/dL Laboratory Results WBC 10.2 k/uL (3.8-10.6) 07/29/16 07:44 RBC 3.94 m/uL (4.30-5.90) L 07/29/16 07:44 Hgb 12.5 gm/dL (13.0-17.5) L 07/29/16 07:44 Hct 39.1 % (39.0-53.0) 07/29/16 07:44 MCV 99.4 fL (80.0-100.0) 07/29/16 07:44 MCH 31.7 pg (25.0-35.0) 07/29/16 07:44 MCHC 31.9 g/dL (31.0-37.0) 07/29/16 07:44 RDW 15.8 % (11.5-15.5) H 07/29/16 07:44 Plt Count 430 k/uL (150-450) 07/29/16 07:44 Neutrophils % 81 % 07/28/16 08:55 Lymphocytes % 11 % 07/28/16 08:55 Monocytes % 4 % 07/28/16 08:55 Eosinophils % 3 % 07/28/16 08:55 Basophils % 1 % 07/28/16 08:55 Neutrophils # 9.5 k/uL (1.3-7.7) H 07/28/16 08:55 Lymphocytes # 1.3 k/uL (1.0-4.8) 07/28/16 08:55 Monocytes # 0.5 k/uL (0-1.0) 07/28/16 08:55 Eosinophils # 0.3 k/uL (0-0.7) 07/28/16 08:55 Basophils # 0.1 k/uL (0-0.2) 07/28/16 08:55 Hypochromasia Slight 07/29/16 07:44 Anisocytosis Slight 07/28/16 08:55 Macrocytosis Slight 07/29/16 07:44 PT 29.0 sec (9.0-12.0) H 07/31/16 07:05 INR 3.0 (<1.1) 07/31/16 07:05 Sodium 136 mmol/L (137-145) L 07/29/16 07:44 Potassium 4.2 mmol/L (3.5-5.1) 07/29/16 07:44 Chloride 100 mmol/L (98-107) 07/29/16 07:44 Carbon Dioxide 25 mmol/L (22-30) 07/29/16 07:44 Anion Gap 11 mmol/L 07/29/16 07:44 BUN 16 mg/dL (9-20) 07/29/16 07:44 Creatinine 0.99 mg/dL (0.66-1.25) 07/29/16 07:44 Est GFR (MDRD) Af Amer >60 (>60 ml/min/1.73 sqM) 07/29/16 07:44 Est GFR (MDRD) Non-Af >60 (>60 ml/min/1.73 sqM) 07/29/16 07:44 Glucose 122 mg/dL (74-99) H 07/29/16 07:44 POC Glucose (mg/dL) 171 mg/dL (75-99) H 07/31/16 16:58 POC Glu Medical Clinic Manager ID Karin Gallardo M 07/31/16 16:[address] Glu mg/dL 128 mg/dL 07/27/16 19:15 Hemoglobin A1c 6.1 % (4.2-6.1) 07/27/16 19:15 Plasma Lactic Acid Cristiano 1.6 mmol/L (0.7-2.0) 07/27/16 19:24 Calcium 8.6 mg/dL (8.4-10.2) 07/29/16 07:44 Total Bilirubin 0.9 mg/dL (0.2-1.3) 07/29/16 07:44 AST 15 U/L (17-59) L 07/29/16 07:44 ALT 21 U/L (21-72) 07/29/16 07:44 Alkaline Phosphatase 73 U/L (38-126) 07/29/16 07:44 Total Protein 6.4 g/dL (6.3-8.2) 07/29/16 07:44 Albumin 3.1 g/dL (3.5-5.0) L 07/29/16 07:44 Microbiology 07/27/16 19:15 Blood Blood Culture - Preliminary No Growth after 72 hours 07/27/16 19:15 Leg - Right Gram Stain - Final 07/27/16 19:15 Leg - Right Wound Culture - Final Klebsiella oxytoca Proteus vulgaris Assessment and Plan (1) Venous stasis ulcers of both lower extremities Status: Acute (2) Diabetic ulcer of right heel associated with diabetes mellitus due to underlying condition, with fat layer exposed Narrative/Plan: 61-year-old male with a history of diabetes mellitus type 2 in the past poorly controlled who now has evidence of an improved hemoglobin A1c. Is also the significant history of venous stasis ulceration the lower extremities that is status post laser ablation. Patient now has recurrence of ulcerations to the lower extremities pressure to the right as well as a diabetic ulceration to the right heel down through the fat layer. He already has had surgical debridement and await further debridement soon. Ceftriaxone is being utilized for the isolated pathogens. His INR was elevated and is now improved. Protein levels are low and needs supplementation. Ongoing aggressive glucose control. Local wound care has been addressed by the vascular surgeon. Both legs are wrapped in being elevated. Concern that his time in his lazy boy has put significant pressure on the right heel resulting in the extensive diabetic ulceration at that site. Status: Acute
--- NOTE | 2016-07-31 19:20 | PN ---
DATE OF SERVICE: 07/31/2016 This 61-year-old gentleman who was admitted with bilateral leg cellulitis also seen by vascular surgery. Right leg debridement was done by Dr. Delgado which is excisional. The patient being closely monitored. The patient was on broad spectrum IV antibiotics. Past medical history reviewed. REVIEW OF SYSTEMS: CARDIOVASCULAR: No angina or palpitations. RESPIRATORY: As mentioned earlier. GI: As mentioned earlier. : No dysuria. Nervous: No numbness or weakness. Current medications are reviewed and include: 1. Tylenol 650 q.6 p.r.n. 2. [place]on 5 mg q6h p.r.n. 3. Rocephin 2 grams IV daily. 4. Santyl one application daily. 6. Proscar 5 mg q.h.s. p.r.n. 7. Neurontin 300 mg p.o. b.i.d. 8. Humalog scale. 9. Lopressor 100 mg p.o. b.i.d. 10. Narcan. 11. Niacin 500 mg p.o. daily. 12. Habitrol 14 daily. 13. Protonix 40 daily. 14. Flomax 0.4 in the morning.. 15. Coumadin 1.5 mg q.h.s. 16. Ambien 5 mg q.6 p.r.n. PHYSICAL EXAMINATION: The patient alert and oriented x3. Pulse 104, blood pressure 158/77, respiratory rate 17, temperature 97.7, pulse ox 91% on room air. HEENT: Conjunctivae normal. NECK: No jugular venous distention. CARDIOVASCULAR: S1, S2. No S3, no S4. RESPIRATORY: Breath sounds diminished at the bases. A few scattered rhonchi, no crackles. ABDOMEN: Soft, nontender. No mass palpable. LEGS: Bilateral leg edema and swelling. Nervous system: No focal deficits. LABS: WBC ntd hemoglobin 12.5. INR is 4. ASSESSMENT: 1. Acute cellulitis of the bilateral lower extremity. Right more than left, status post excision and debridement by Dr. Delgado. 2. Charcot foot diabetes mellitus type 2. 3. History of nicotine dependence. 4. Venous stasis of both lower extremities. 5. Mild Coumadin coagulopathy. 6. Hypoalbuminemia with mild to moderate protein calorie malnutrition. 7. Increased random blood sugar. 8. Increased WBC. 9. Increased platelets. 10. History of atrial fibrillation. 11. Diabetes mellitus type 2. 12. History of essential hypertension. 13. Hyperlipidemia. 14. Sleep apnea. 15. History of peripheral vascular disease. 16. History of irritable bowel syndrome. 17. Anxiety, depression, not otherwise specified. RECOMMENDATIONS AND DISCUSSION: In this 61-year-old gentleman who presented with multiple complex medical issues. We will monitor the patient closely. Continue the current treatment. Continue symptomatic treatment. Otherwise, at this time, I would recommend continue with antibiotics. The patient is keen on going home on Tuesday. Would recommend to follow the patient closely with infectious disease. Repeat labs will be ordered. Further recommendations to follow. See orders for further details. MTDD
[2016-07-31 21:26] LABS: Glucose,Whole Blood 228 mg/dL (75-99)
[2016-07-31] MEDS: cefTRIAXone 2,000 MG in SODIUM CHLORIDE 0.9% 100 ML IVPB SCH (21:43)
[2016-07-31] MEDS: FINASTERIDE 5 MG TAB PO SCH (21:43)
[2016-08-01] MEDS: SODIUM CHLORIDE 0.9% 1,000 ML IV SCH ×2 (03:39→15:08)
[2016-08-01 07:08] LABS: Glucose,Whole Blood 138 mg/dL (75-99)
[2016-08-01 08:00] LABS: INR 2.9 (<1.1); Prothrombin Time 27.5 sec (9.0-12.0)
[2016-08-01] MEDS: PANTOPRAZOLE 40 MG TABLET PO SCH (08:05)
[2016-08-01] MEDS: FENOFIBRATE 160 MG TAB PO SCH (08:05)
[2016-08-01] MEDS: NIACIN TR 500 MG CAPSULE.ER PO SCH (08:06)
[2016-08-01] MEDS: NICOTINE 14MG/24HR PATCH TRANSDERM SCH (08:06)
[2016-08-01] MEDS: METOPROLOL TARTRATE 50 MG TAB PO SCH ×2 (08:06→21:01)
[2016-08-01] MEDS: GABAPENTIN 300 MG CAP PO SCH ×2 (08:06→21:01)
[2016-08-01] MEDS: INSULIN LISPRO (humaLOG) 300 UNIT/3 ML VIAL SQ SCH ×4 (08:07→21:02)
[2016-08-01 08:14] LABS: Anion Gap 8 mmol/L; Blood Urea Nitrogen 12 mg/dL (9-20); Calcium 9.4 mg/dL (8.4-10.2); Carbon Dioxide 28 mmol/L (22-30); Chloride 99 mmol/L (98-107); Glucose 142 mg/dL (74-99); Non-African American GFR(MDRD) >60 (>60 ml/min/1.73 sqM); Potassium 5.3 mmol/L (3.5-5.1); Sodium 135 mmol/L (137-145)
[2016-08-01] MEDS: HYDROcodone/APAP 5-325MG 1 EACH TAB PO PRN ×3 (08:16→21:00)
[2016-08-01 08:20] LABS: Anisocytosis Slight; Basophils # (A) 0.1 k/uL (0-0.2); Basophils % (A) 1 %; CH 31.5; CHCM 32.1; Eosinophils # (A) 0.2 k/uL (0-0.7); Eosinophils % (A) 2 %; HCT 40.5 % (39.0-53.0); HDW 3.27; HGB 12.9 gm/dL (13.0-17.5); Hypochromasia Slight; Luc # (Auto) 0.26; Luc % (Auto) 2; Lymphocytes # (A) 1.2 k/uL (1.0-4.8); Lymphocytes % (A) 11 %; MCH 31.5 pg (25.0-35.0); MCHC 31.9 g/dL (31.0-37.0); MCV 98.9 fL (80.0-100.0); Macrocytosis Slight; Mean Platelet Volume 7.8; Monocytes # (A) 0.7 k/uL (0-1.0); Monocytes % (A) 6 %; Neutrophils # (A) 8.6 k/uL (1.3-7.7); Neutrophils % (A) 78 %; WBC (Perox) 11.45
[2016-08-01 08:41] LABS: Manual Review Performed
[2016-08-01] MEDS: TAMSULOSIN 0.4 MG CAP.ER.24H PO SCH (09:36)
[2016-08-01 11:28] LABS: Glucose,Whole Blood 167 mg/dL (75-99)
[2016-08-01] MEDS: COLLAGENASE 250 UNIT/GM OINTMENT 30 GM TUBE TOPICAL SCH (11:37)
--- NOTE | 2016-08-01 14:05 | P.PN ---
Subjective Principal diagnosis: Bilateral lower extremity cellulitis, ulceration of right heel 61-year-old male with a history of obesity, chronic venous stasis, diabetes mellitus type 2 poorly controlled for many years and obesity presented to hospital with bilateral lower extremity ulcerations as well as a new ulceration to his right heel. The patient is well-known to the wound healing Center, and Dr. Delgado. He's had difficulty with significant bilateral lower extremity venous stasis with ulcerations in the past. He has been seen by the surgeon and has had treatment to his varicosities. Apparently was doing well until the acute current worsening of his lower extremity edema. Ulceration, cellulitis swelling and drainage of all occurred. He is unclear of how we developed an ulceration to his heel. He relates his shoes don't fit. He spends all his time in a lazy boy recliner. He spends time in bed. He walks very little. However today with the physical therapist is able to walk the entire length of the hallway without difficulty with a walker. The patient relates since I've last seen him he suffered a fall at home and had a shoulder fracture which made it a bit more difficult for him to have ambulation. This is healing and he is doing better with a walker. Objective - Vital Signs Vital signs: Vital Signs Temp 97.1 F L 08/01/16 07:00 Pulse 111 H 08/01/16 08:00 Resp 17 08/01/16 08:00 BP 154/105 08/01/16 07:00 Pulse Ox 95 08/01/16 07:00 Intake & Output 07/31/16 08/01/16 08/01/16 18:59 06:59 18:59 Intake Total 3993 895 2139 Balance 2943 240 5990 Intake: IV 400 Sodium Chloride 0.9% 1, 400 000 ml @ 80 mls/hr IV . [id number] CARLOS Rx#:[id number] Intake, IV Titration 100 Amount cefTRIAXone 2,000 mg In 100 Sodium Chloride 0.9% 100 ml @ 100 mls/hr IVPB Q24H CARLOS Rx#:[id number] Oral 0969 650 7120 Other: Voiding Method Toilet Toilet Toilet # Voids 3 1 3 # Bowel Movements 1 1 - Exam Pleasant obese 61-year-old male who is comfortable at this time. HEENT: Anicteric conjunctiva are pink and moist nasal mucosa grossly intact without significant lesions, there is no thrush. Neck: The neck is supple without significant lymphadenopathy or thyromegaly. Lungs: Symmetrical air entry. Expiratory wheezes are scattered the lung manrique. No julian bronchial sounds. He does have a history of extensive tobacco use. Heart: Irregular with an audible S1 and S2 soft S4 no no murmur is noted. Abdomen: Obese, Positive bowel sounds soft and nontender without palpable masses or organomegaly. There was no guarding or rebound. Extremities: The upper extremities have excellent pulses they are symmetric, no significant petechiae or telangiectasia. No splinter hemorrhages were noted. The bilateral lower extremities have evidence of some edema. The open ulcerations are seen on the right pretibial area dorsum of the foot. In the debrided heel ulceration is noted. Left leg has just some erythema without significant weeping at this time. Lack of significant tenderness is noted in either area. Neuro: Awake alert oriented to person place and time. There are no acute new gross focal sensory motor deficits. Positive peripheral neuropathy noted. - Labs CBC & Chem 7: 08/01/16 07:18 08/01/16 07:18 Labs: Abnormal Lab Results - Last 24 Hours (Table) 07/31/16 07/31/16 08/01/16 Range/Units 16:58 21:25 07:06 WBC (3.8-10.6) k/uL RBC (4.30-5.90) m/uL Hgb (13.0-17.5) gm/dL RDW (11.5-15.5) % Plt Count (150-450) k/uL Neutrophils # (1.3-7.7) k/uL PT (9.0-12.0) sec Sodium (137-145) mmol/L Potassium (3.5-5.1) mmol/L Glucose (74-99) mg/dL POC Glucose (mg/dL) 171 H 228 H 138 H (75-99) mg/dL 08/01/16 08/01/16 08/01/16 Range/Units 07:18 07:18 07:18 WBC 11.0 H (3.8-10.6) k/uL RBC 4.10 L (4.30-5.90) m/uL Hgb 12.9 L (13.0-17.5) gm/dL RDW 16.0 H (11.5-15.5) % Plt Count 458 H (150-450) k/uL Neutrophils # 8.6 H (1.3-7.7) k/uL PT 27.5 H (9.0-12.0) sec Sodium 135 L (137-145) mmol/L Potassium 5.3 H (3.5-5.1) mmol/L Glucose 142 H (74-99) mg/dL POC Glucose (mg/dL) (75-99) mg/dL 08/01/16 Range/Units 11:22 WBC (3.8-10.6) k/uL RBC (4.30-5.90) m/uL Hgb (13.0-17.5) gm/dL RDW (11.5-15.5) % Plt Count (150-450) k/uL Neutrophils # (1.3-7.7) k/uL PT (9.0-12.0) sec Sodium (137-145) mmol/L Potassium (3.5-5.1) mmol/L Glucose (74-99) mg/dL POC Glucose (mg/dL) 167 H (75-99) mg/dL Laboratory Results WBC 11.0 k/uL (3.8-10.6) H 08/01/16 07:18 RBC 4.10 m/uL (4.30-5.90) L 08/01/16 07:18 Hgb 12.9 gm/dL (13.0-17.5) L 08/01/16 07:18 Hct 40.5 % (39.0-53.0) 08/01/16 07:18 MCV 98.9 fL (80.0-100.0) 08/01/16 07:18 MCH 31.5 pg (25.0-35.0) 08/01/16 07:18 MCHC 31.9 g/dL (31.0-37.0) 08/01/16 07:18 RDW 16.0 % (11.5-15.5) H 08/01/16 07:18 Plt Count 458 k/uL (150-450) H 08/01/16 07:18 Neutrophils % 78 % 08/01/16 07:18 Lymphocytes % 11 % 08/01/16 07:18 Monocytes % 6 % 08/01/16 07:18 Eosinophils % 2 % 08/01/16 07:18 Basophils % 1 % 08/01/16 07:18 Neutrophils # 8.6 k/uL (1.3-7.7) H 08/01/16 07:18 Lymphocytes # 1.2 k/uL (1.0-4.8) 08/01/16 07:18 Monocytes # 0.7 k/uL (0-1.0) 08/01/16 07:18 Eosinophils # 0.2 k/uL (0-0.7) 08/01/16 07:18 Basophils # 0.1 k/uL (0-0.2) 08/01/16 07:18 Manual Slide Review Performed 08/01/16 07:18 Hypochromasia Slight 08/01/16 07:18 Anisocytosis Slight 08/01/16 07:18 Macrocytosis Slight 08/01/16 07:18 PT 27.5 sec (9.0-12.0) H 08/01/16 07:18 INR 2.9 (<1.1) 08/01/16 07:18 Sodium 135 mmol/L (137-145) L 08/01/16 07:18 Potassium 5.3 mmol/L (3.5-5.1) H 08/01/16 07:18 Chloride 99 mmol/L (98-107) 08/01/16 07:18 Carbon Dioxide 28 mmol/L (22-30) 08/01/16 07:18 Anion Gap 8 mmol/L 08/01/16 07:18 BUN 12 mg/dL (9-20) 08/01/16 07:18 Creatinine 0.96 mg/dL (0.66-1.25) 08/01/16 07:18 Est GFR (MDRD) Af Amer >60 (>60 ml/min/1.73 sqM) 08/01/16 07:18 Est GFR (MDRD) Non-Af >60 (>60 ml/min/1.73 sqM) 08/01/16 07:18 Glucose 142 mg/dL (74-99) H 08/01/16 07:18 POC Glucose (mg/dL) 167 mg/dL (75-99) H 08/01/16 11:22 POC Glu Structural [employer] Trades Worker Karin Galvin M 08/01/16 11:[address] Glu mg/dL 128 mg/dL 07/27/16 19:15 Hemoglobin A1c 6.1 % (4.2-6.1) 07/27/16 19:15 Plasma Lactic Acid Cristiano 1.6 mmol/L (0.7-2.0) 07/27/16 19:24 Calcium 9.4 mg/dL (8.4-10.2) 08/01/16 07:18 Total Bilirubin 0.9 mg/dL (0.2-1.3) 07/29/16 07:44 AST 15 U/L (17-59) L 07/29/16 07:44 ALT 21 U/L (21-72) 07/29/16 07:44 Alkaline Phosphatase 73 U/L (38-126) 07/29/16 07:44 Total Protein 6.4 g/dL (6.3-8.2) 07/29/16 07:44 Albumin 3.1 g/dL (3.5-5.0) L 07/29/16 07:44 Microbiology 07/27/16 19:15 Blood Blood Culture - Preliminary No Growth after 96 hours 07/27/16 19:15 Leg - Right Gram Stain - Final 07/27/16 19:15 Leg - Right Wound Culture - Final Klebsiella oxytoca Proteus vulgaris Assessment and Plan (1) Venous stasis ulcers of both lower extremities Status: Acute (2) Diabetic ulcer of right heel associated with diabetes mellitus due to underlying condition, with fat layer exposed Narrative/Plan: 61-year-old male with a history of diabetes mellitus type 2 in the past poorly controlled who now has evidence of an improved hemoglobin A1c. Is also the significant history of venous stasis ulceration the lower extremities that is status post laser ablation. Patient now has recurrence of ulcerations to the lower extremities pressure to the right as well as a diabetic ulceration to the right heel down through the fat layer. He already has had surgical debridement and await further debridement soon. Ceftriaxone is being utilized for the isolated pathogens. His INR was elevated and is now improved. Protein levels are low and needs supplementation. Ongoing aggressive glucose control. Local wound care has been addressed by the vascular surgeon. Both legs are wrapped in being elevated. Concern that his time in his lazy boy has put significant pressure on the right heel resulting in the extensive diabetic ulceration at that site. It will be debrided again tomorrow. If the patient is ready for discharge to home the plan will be for oral antibiotic therapy. Ciprofloxacin can be utilized. His INR and Coumadin will need to be monitored very closely while he is on fluoroquinolone therapy. He agrees to follow-up with wound healing center Status: Acute
[2016-08-01 15:15] VITALS: RESP 17
[2016-08-01 17:10] LABS: Glucose,Whole Blood 143 mg/dL (75-99)
[2016-08-01 20:48] LABS: Glucose,Whole Blood 190 mg/dL (75-99)
[2016-08-01] MEDS: WARFARIN 1 MG TAB PO SCH (21:01)
[2016-08-01] MEDS: cefTRIAXone 2,000 MG in SODIUM CHLORIDE 0.9% 100 ML IVPB SCH (21:01)
[2016-08-01] MEDS: FINASTERIDE 5 MG TAB PO SCH (21:01)
[2016-08-02] MEDS: SODIUM CHLORIDE 0.9% 1,000 ML IV SCH ×2 (07:18→13:05)
[2016-08-02 07:24] LABS: Glucose,Whole Blood 126 mg/dL (75-99)
[2016-08-02 07:38] VITALS: BP 138/96; PULSE 118; TEMP 97
[2016-08-02] MEDS: INSULIN LISPRO (humaLOG) 300 UNIT/3 ML VIAL SQ SCH ×2 (07:52→12:39)
[2016-08-02] MEDS: NICOTINE 14MG/24HR PATCH TRANSDERM SCH (07:53)
[2016-08-02] MEDS: METOPROLOL TARTRATE 50 MG TAB PO SCH (07:53)
[2016-08-02] MEDS: TAMSULOSIN 0.4 MG CAP.ER.24H PO SCH (07:54)
[2016-08-02] MEDS: GABAPENTIN 300 MG CAP PO SCH (07:55)
[2016-08-02] MEDS: FENOFIBRATE 160 MG TAB PO SCH (07:55)
[2016-08-02] MEDS: COLLAGENASE 250 UNIT/GM OINTMENT 30 GM TUBE TOPICAL SCH (07:56)
[2016-08-02] MEDS: NIACIN TR 500 MG CAPSULE.ER PO SCH (07:56)
[2016-08-02] MEDS: PANTOPRAZOLE 40 MG TABLET PO SCH (07:56)
[2016-08-02 07:59] LABS: Basophils # (A) 0.1 k/uL (0-0.2); Basophils % (A) 1 %; CH 31.4; Eosinophils # (A) 0.3 k/uL (0-0.7); Eosinophils % (A) 2 %; HCT 40.3 % (39.0-53.0); HDW 3.11; HGB 12.2 gm/dL (13.0-17.5); Hypochromasia Moderate; Luc # (Auto) 0.28; Luc % (Auto) 3; Lymphocytes # (A) 1.3 k/uL (1.0-4.8); Lymphocytes % (A) 12 %; MCH 30.8 pg (25.0-35.0); MCHC 30.3 g/dL (31.0-37.0); MCV 101.9 fL (80.0-100.0); Macrocytosis Slight; Mean Platelet Volume 7.8; Monocytes # (A) 0.7 k/uL (0-1.0); Monocytes % (A) 7 %; Neutrophils # (A) 8.2 k/uL (1.3-7.7); Neutrophils % (A) 75 %; RBC 3.95 m/uL (4.30-5.90); WBC 10.9 k/uL (3.8-10.6); WBC (Perox) 10.77
[2016-08-02 08:06] LABS: INR 3.1 (<1.1); Prothrombin Time 29.5 sec (9.0-12.0)
[2016-08-02] MEDS: HYDROcodone/APAP 5-325MG 1 EACH TAB PO PRN ×2 (08:06→14:55)
[2016-08-02 08:09] LABS: Anion Gap 7 mmol/L; Blood Urea Nitrogen 13 mg/dL (9-20); Calcium 9.1 mg/dL (8.4-10.2); Carbon Dioxide 29 mmol/L (22-30); Chloride 100 mmol/L (98-107); Glucose 130 mg/dL (74-99); Non-African American GFR(MDRD) >60 (>60 ml/min/1.73 sqM); Potassium 4.9 mmol/L (3.5-5.1); Sodium 136 mmol/L (137-145)
--- NOTE | 2016-08-02 08:24 | P.DS ---
Providers Date of admission: 07/27/16 20:10 Expected date of discharge: 08/02/16 Attending physician: Kamari Franks Consults: 07/28/16 04:13 Consult Physician Routine Consulting Provider: Rafita Kaur Consult Reason/Comments: bilateral leg cellulitis/wounds Do you want consulting provider notified?: Yes, Notify in am 07/30/16 14:39 Consult Physician Routine Consulting Provider: Konstantin Delgado Consult Reason/Comments: right heel wound Do you want consulting provider notified?: Already Contacted Primary care physician: Kamari Franks - Discharge Diagnosis(es) (1) Cellulitis of left lower extremity Current Visit: Yes Status: Acute (2) Cellulitis of right leg Current Visit: No Status: Acute (3) Charcot foot due to diabetes mellitus Current Visit: No Status: Acute (4) Smoking Current Visit: No Status: Acute (5) Venous stasis ulcers of both lower extremities Current Visit: No Status: Acute Hospital Course: This is a discharge summary an 61-year-old white male with recurrent and intermittently chronic cellulitis of the lower extremities with history of vascular insufficiency. The patient was stabilized with appropriate antibiotic treatment and vessel surgery with infectious diseases consulted. He will undergo debridement and be discharged on Cipro. We will check his pro time/INR this or Tuesday and he will be discharged in stable condition to follow- up with me as stated above. Patient Condition at Discharge: Serious Plan - Discharge Summary New Discharge Prescriptions: Ciprofloxacin HCl [Cipro] 500 mg PO Q12HR #20 tablet Discharge Medication List Fenofibrate Nanocrystallized [Tricor] 145 mg PO DAILY 07/27/16 [History] Finasteride [Proscar] 5 mg PO HS 07/27/16 [History] Gabapentin [Neurontin] 300 mg PO BID 07/27/16 [History] Insulin Glargine,Hum.rec.anlog [Lantus Solostar] 60 unit SQ HS 07/27/16 [History ] Metoprolol Tartrate [Lopressor] 100 mg PO BID 07/27/16 [History] Niacin [Niacin ER] 500 mg PO DAILY 07/27/16 [History] Tamsulosin HCl [Flomax] 0.4 mg PO QAM 07/27/16 [History] Warfarin [Coumadin] 1.25 mg PO HS 07/27/16 [History] Ciprofloxacin HCl [Cipro] 500 mg PO Q12HR #20 tablet 08/02/16 [Rx] Follow up Appointment(s)/Referral(s): Kamari Franks MD [Primary Care Provider] - 3 Days [facility],. [NON-STAFF] - 1 Week Patient Instructions/Handouts: Cellulitis (DC), Diabetes and Your Skin (DC) Activity/Diet/Wound Care/Special Instructions: No smoking, cessation information provided. Cardiac, diabetic diet. Limited activity until follow up with . Use cane and foot brace with walking, fall precautions discussed.
--- NOTE | 2016-08-02 08:27 | PN ---
DATE OF SERVICE: 08/01/2016 I am covering for Dr. Franks. This is a 61-year-old gentleman who was admitted with bilateral leg cellulitis, right more than the left underwent a bedside wound debridement with Dr. Delgado. No chest pain or palpitation. No fever. On exam, pulse is 108, blood pressure 131/80, respirations 16, temperature is 97.1, pulse ox 94% on room air. HEENT: Conjunctivae normal. NECK: No jugular venous distension. CARDIOVASCULAR SYSTEM: S1, S2, muffled. RESPIRATORY: Breath sounds diminished at the bases. A few scattered rhonchi, no crackles. Abdomen is soft. LEGS: Bilateral leg cellulitis. NERVOUS SYSTEM: No focal deficits. LABS: WBC 11, hemoglobin is 12.9, sodium 130, potassium 3.5. ASSESSMENT: 1. Acute cellulitis of the bilateral lower extremities, right more than the left, status post excision and debridement by Dr. Delgado. 2. Charcot foot. 3. Diabetes mellitus type 2. 4. History of nicotine dependence. 5. Venous stasis of both lower extremities. 6. Mild Coumadin coagulopathy. 7. Hypoalbuminemia with mild to moderate protein calorie malnutrition. 8. Increased random blood sugar. 9. Increased WBC. 10. Increased platelets. 11. History of atrial fibrillation. 12. Diabetes mellitus type 2. 13. History of essential hypertension. 14. Hyperlipidemia. 15. Sleep apnea. 16. History of peripheral vascular disease. 17. History of irritable bowel syndrome. 18. Anxiety and depression, not otherwise specified. RECOMMENDATION: In this 61-year-old gentleman who presented with multiple complex medical issues, will monitor the patient closely, continue with the current medications. Continue with the symptomatic treatment. Continue with the broad-spectrum IV antibiotics. The wound culture showed Klebsiella oxytocin and Proteus vulgaris. Continue to monitor and closely follow with Dr. Delgado and the patient is currently on IV Rocephin. Infectious Disease is following the patient closely and Dr. Franks will follow.
[2016-08-02 11:32] LABS: Glucose,Whole Blood 153 mg/dL (75-99)
--- NOTE | 2016-08-06 14:31 | CDI ---
In responding to this query, please exercise your independent professional judgment. The [facility] Coding Staff and Clinical Documentation Specialists appreciate your assistance in clarifying documentation, maintaining compliance with coding guidelines, accurately documenting patients condition and capturing severity of illness. The fact that a question is asked does not imply that any particular answer is desired or expected. Communication forms are a method of clarifying documentation and are not made part of the Legal Health Record. Thank you in advance for your clarification. Last Revision, February 2015 Roman Rhoades [address] [facility] [place] [address] Documentation Clarification Form Date: 08/06/2016 2:23:00 PM From: IRAIDA Nuñez & Deb Harris, Ivory Polisher & Deb = [phone] Admit Date: 07/27/2016 8:10:00 PM Patient Name: Brandon Nunez Visit Number: [id number] Discharge Date: 07-30-16 Dr. Konstantin Delgado Please indicate DEPTH of excisional debridement performed on the right heel at the bedside on 07-30-16. History/Risk Factors: Diabetic foot ulcer, cellulitis, PVD, smoker, peripheral neuropathy, Charcot's, history of MRSA, venous stasis ulcers. Five elements required for accurate and compliant documentation of a debridement : 1. Technique used (e.g., excisional, excised, cutting, etc.) 2. Instrument(s) used (e.g., scalpel, curette, etc.) 3. Nature of the tissue removed (e.g., necrotic, devitalized tissues, non- viable tissue, etc.) 4. Appearance and size of the wound (e.g., down to fresh bleeding tissue, 7cm x 10cm, etc.) 5. Depth of the debridement* (e.g., skin, subcutaneous tissue, fascia, muscle , bone, etc.) In order to capture the severity of condition and code the appropriate procedure could you please document the following: Excisional debridement (the removal of necrotic, devitalized tissue or slough by means of cutting away of tissue) Non-excisional debridement (the removal of necrotic, devitalized tissue or slough by means of flushing, brushing, or washing. (Irrigation) Other; with explanation for clinical findings Unable to determine (no explanation for clinical findings) Please document in your progress notes and discharge summary in order to capture severity of illness and risk of mortality. Include clinical findings that support your diagnosis. FYI: Press F11 to launch patient chart. Place X here if this finding has no clinical significance, is not applicable or if you are not able to provide any additional documentation. MENA
--- NOTE | 2016-08-06 14:39 | CDI ---
In responding to this query, please exercise your independent professional judgment. The [facility] Coding Staff and Clinical Documentation Specialists appreciate your assistance in clarifying documentation, maintaining compliance with coding guidelines, accurately documenting patients condition and capturing severity of illness. The fact that a question is asked does not imply that any particular answer is desired or expected. Communication forms are a method of clarifying documentation and are not made part of the Legal Health Record. Thank you in advance for your clarification. Last Revision, February 2015 Roman Rhoades [address] [place] [address] Documentation Clarification Form Date: 08/06/2016 2:32:00 PM From: Josie Mckeon, [facility] & Deb Harris, Linen Room Custodian & Sandrathiagomarshal # [phone] Admit Date: 07/27/2016 8:10:00 PM Patient Name: Brandon Nunez Visit Number: [id number] Discharge Date: 08-02-16 Dr. Kamari Franks Please clarify, if possible the type of atrial fibrillation. Atrial fibrillation is documented in the History and Physical, along with other parts of the chart as PMH. H&P states on exam: Rhythm as = irregularly irregular. History/Risk Factors: HTN, PVD, diabetes, smoker, obesity, BMI = 43.5 EKG/telemetry: No EKG's done, no telemetry Treatment: Chronically on Coumadin Consults: None In your professional opinion, can you please clarify the type of atrial fibrillation, if known? Chronic/Permanent Paroxysmal Persistent Other, please specify Unable to determine Please document in your progress notes and discharge summary in order to capture severity of illness and risk of mortality. Include clinical findings that support your diagnosis. FYI: Press F11 to launch patient chart Place X here if this finding has no clinical significance, is not applicable or if you are not able to provide any additional documentation. MENA
--- NOTE | 2016-08-06 14:50 | CDI ---
In responding to this query, please exercise your independent professional judgment. The [facility] Coding Staff and Clinical Documentation Specialists appreciate your assistance in clarifying documentation, maintaining compliance with coding guidelines, accurately documenting patients condition and capturing severity of illness. The fact that a question is asked does not imply that any particular answer is desired or expected. Communication forms are a method of clarifying documentation and are not made part of the Legal Health Record. Thank you in advance for your clarification. Last Revision, February 2015 Roman Rhoades [address] [place] [address] Documentation Clarification Form Date: 08/06/2016 2:40:00 PM From: Josie Mckeon, [facility] & Deb Harris, Systems Security Consultant and [employer] = [phone] Admit Date: 07/27/2016 8:10:00 PM Patient Name: Brandon Nunez Visit Number: [id number] Discharge Date: 08-02-16 Dr. Kamari Franks Please confirm if the patient with these factors, had sepsis: History/Risk Factors: Cellulitis santiago. lower extremities (chronic also), diabetic foot ulcer, smoker, venous stasis ulcers, charcot's, obesity, BMI 43.5 , history of MRSA, peripheral neuropathy. WBC= 13.3 on admission, 11.8 on 07-28-16. Lactic acid: normal -plasma lactic acid = 1.6 on 07-27-16 Blood cultures: No growth. Vitals signs on admission: temperature of 99.3, pulse rate = 122, hypoxic 94% ID Consult: Yes, Dr. Iva Claudio Antibiotics: Yes, IV. Other: Right leg culture = klebsiella oxytoca, proteus vulgaris In your professional opinion, can you please clarify if these findings signify one of the following conditions, whether the condition is POA, and cause, if known? SIRS, without underlying infectious process Sepsis Severe Sepsis Septic Shock Unable to determine Other, please specify * Identify the (suspected) organism * Link or clarify if there is associated (due to/with): - Organ failure - Shock SIRS Criteria: 2 or more of the following may indicate SIRS Temperature < 96.8F(36C) or > 101.0F (38C) Heart Rate > 90 bpm Respiratory Rate > 20 breaths/min or PaCO2 < 32 mmHg White Blood Cell Count > 12,000 or < 4,000 cells/mm3 or > 10% bands Please document in your progress notes and discharge summary in order to capture severity of illness and risk of mortality. Include clinical findings that support your diagnosis. FYI: Press F11 to launch patient chart. Place X here if this finding has no clinical significance, is not applicable or if you are not able to provide any additional documentation. MTDD
--- NOTE | 2016-08-17 17:14 | CDI ---
In responding to this query, please exercise your independent professional judgment. The [facility] Coding Staff and Clinical Documentation Specialists appreciate your assistance in clarifying documentation, maintaining compliance with coding guidelines, accurately documenting patients condition and capturing severity of illness. The fact that a question is asked does not imply that any particular answer is desired or expected. Communication forms are a method of clarifying documentation and are not made part of the Legal Health Record. Thank you in advance for your clarification. Last Revision, February 2015 Roman Rhoades [address] [facility] [place] [address] Documentation Clarification Form Date: 08/17/2016 5:10:00 PM From: Josie Mckeon [facility] & Deb Harris, Miniature Set Builder & Deb [phone] Admit Date: 07/27/2016 8:10:00 PM Patient Name: Brandon Nunez Visit Number: [id number] Discharge Date: 08-02-16 Dr. Konstantin Delgado Please indicate DEPTH of excisional debridement performed on the right heel at the bedside on 07-30-16. History/Risk Factors: Diabetic foot ulcer, cellulitis, PVD, smoker, peripheral neuropathy, Charcot's, history of MRSA, venous stasis ulcers. Five elements required for accurate and compliant documentation of a debridement : 1. Technique used (e.g., excisional, excised, cutting, etc.) 2. Instrument(s) used (e.g., scalpel, curette, etc.) 3. Nature of the tissue removed (e.g., necrotic, devitalized tissues, non- viable tissue, etc.) 4. Appearance and size of the wound (e.g., down to fresh bleeding tissue, 7cm x 10cm, etc.) 5. Depth of the debridement* (e.g., skin, subcutaneous tissue, fascia, muscle , bone, etc.) In order to capture the severity of condition and code the appropriate procedure could you please document the following: Excisional debridement (the removal of necrotic, devitalized tissue or slough by means of cutting away of tissue) Non-excisional debridement (the removal of necrotic, devitalized tissue or slough by means of flushing, brushing, or washing. (Irrigation) Other; with explanation for clinical findings Unable to determine (no explanation for clinical findings) Please document in your progress notes and discharge summary in order to capture severity of illness and risk of mortality. Include clinical findings that support your diagnosis. FYI: Press F11 to launch patient chart. Place X here if this finding has no clinical significance, is not applicable or if you are not able to provide any additional documentation. MENA
== END 2016-08-02 17:48 | disposition home or self-care (01) | DRG 623 ==
LOC: EC 18:13 → 4MS4W 20:10 → 5MS5E 07-29 00:50
PROVIDERS: ADMIT Family Medicine; ATTEND Family Medicine
PROC: 0JBQ0ZZ Excision of Right Foot Subcutaneous Tissue and Fascia, Open Approach (ICD-10-PCS; principal; 2016-07-30)
DX: E11.621 Type 2 diabetes mellitus with foot ulcer (principal); L97.412 Non-pressure chronic ulcer of right heel and midfoot with fat layer exposed; E44.0 Moderate protein-calorie malnutrition; E11.42 Type 2 diabetes mellitus with diabetic polyneuropathy; E11.51 Type 2 diabetes mellitus with diabetic peripheral angiopathy without gangrene; I10 Essential (primary) hypertension; I48.91 Unspecified atrial fibrillation; B37.2 Candidiasis of skin and nail; F17.210 Nicotine dependence, cigarettes, uncomplicated; Z68.41 Body mass index [BMI] 40.0-44.9, adult; L03.115 Cellulitis of right lower limb; L03.116 Cellulitis of left lower limb; E11.610 Type 2 diabetes mellitus with diabetic neuropathic arthropathy; T45.515A Adverse effect of anticoagulants, initial encounter; B96.89 Other specified bacterial agents as the cause of diseases classified elsewhere; I87.2 Venous insufficiency (chronic) (peripheral); I87.8 Other specified disorders of veins; E11.622 Type 2 diabetes mellitus with other skin ulcer; B96.4 Proteus (mirabilis) (morganii) as the cause of diseases classified elsewhere; I83.009 Varicose veins of unspecified lower extremity with ulcer of unspecified site; E11.628 Type 2 diabetes mellitus with other skin complications; E66.9 Obesity, unspecified; M19.90 Unspecified osteoarthritis, unspecified site; E78.5 Hyperlipidemia, unspecified; R50.9 Fever, unspecified; R60.0 Localized edema; N40.0 Benign prostatic hyperplasia without lower urinary tract symptoms; E88.09 Other disorders of plasma-protein metabolism, not elsewhere classified; F32.9 Major depressive disorder, single episode, unspecified; K58.9 Irritable bowel syndrome, unspecified; F41.9 Anxiety disorder, unspecified; L30.9 Dermatitis, unspecified; G47.30 Sleep apnea, unspecified; K08.109 Complete loss of teeth, unspecified cause, unspecified class; H52.202 Unspecified astigmatism, left eye; H91.90 Unspecified hearing loss, unspecified ear; R53.1 Weakness; Z87.442 Personal history of urinary calculi; Z88.2 Allergy status to sulfonamides; Z86.19 Personal history of other infectious and parasitic diseases; Z83.3 Family history of diabetes mellitus; Z80.3 Family history of malignant neoplasm of breast; Z79.899 Other long term (current) drug therapy; Z86.14 Personal history of Methicillin resistant Staphylococcus aureus infection; Z79.01 Long term (current) use of anticoagulants; Z79.4 Long term (current) use of insulin; Z87.81 Personal history of (healed) traumatic fracture; Z80.8 Family history of malignant neoplasm of other organs or systems; Z91.81 History of falling; Z80.52 Family history of malignant neoplasm of bladder; Z16.24 Resistance to multiple antibiotics
CPT/HCPCS: 36415; 71010; 80048; 80053; 83036; 83605; 85025; 85027; 85610; 87040; 87070; 87077; 87186; 87205; 96365; 99284

== ENCOUNTER 2016-08-14 23:30 | Inpatient (IN) | payer OTHER ==
[2016-08-15] MEDS ORDERED: ACETAMINOPHEN TAB 500 MG TAB PO STA (00:18)
[2016-08-15] MEDS ORDERED: IBUPROFEN IV 800 MG in SODIUM CHLORIDE 0.9% 250 ML IV ONE (00:20)
[2016-08-15] MEDS ORDERED: IV VANCOMYCIN PER PHARMACY 1 EACH MISC MISCELLANE PRN (00:28)
[2016-08-15] MEDS ORDERED: LEVOFLOXACIN 750MG-D5W PMX 750 MG in DEXTROSE/WATER 1 150ML.BAG IVPB STA (00:28)
[2016-08-15] MEDS: SODIUM CHLORIDE 0.9% 500 ML IV SCH ×3 (00:54→02:15)
[2016-08-15] MEDS ORDERED: VANCOMYCIN 2,000 MG in SODIUM CHLORIDE 0.9% 500 ML IVPB ONE (01:00)
[2016-08-15 01:08] LABS: Basophils # (A) 0.1 k/uL (0-0.2); Basophils % (A) 0 %; CH 30.7; CHCM 31.3; Eosinophils % (A) 0 %; HCT 39.4 % (39.0-53.0); HDW 3.22; HGB 12.1 gm/dL (13.0-17.5); Hypochromasia Moderate; Luc # (Auto) 0.41; Luc % (Auto) 2; Lymphocytes # (A) 0.7 k/uL (1.0-4.8); Lymphocytes % (A) 3 %; MCH 30.2 pg (25.0-35.0); MCHC 30.7 g/dL (31.0-37.0); MCV 98.6 fL (80.0-100.0); Mean Platelet Volume 7.7; Monocytes # (A) 0.8 k/uL (0-1.0); Monocytes % (A) 4 %; Neutrophils # (A) 17.3 k/uL (1.3-7.7); Neutrophils % (A) 90 %; RDW 15.1 % (11.5-15.5); WBC 19.2 k/uL (3.8-10.6); WBC (Perox) 19.45
[2016-08-15 01:20] LABS: ALT 24 U/L (21-72); AST 23 U/L (17-59); Alkaline Phosphatase 105 U/L (38-126); Anion Gap 11 mmol/L; Blood Urea Nitrogen 25 mg/dL (9-20); Calcium 8.7 mg/dL (8.4-10.2); Carbon Dioxide 27 mmol/L (22-30); Chloride 103 mmol/L (98-107); Glucose 146 mg/dL (74-99); Non-African American GFR(MDRD) 56 (>60 ml/min/1.73 sqM); Potassium 3.9 mmol/L (3.5-5.1); Sodium 141 mmol/L (137-145); Total Bilirubin 1.6 mg/dL (0.2-1.3); Total Protein 6.7 g/dL (6.3-8.2)
--- NOTE | 2016-08-15 01:28 | XR ---
EXAM: XR Chest, 1 View CLINICAL HISTORY: Reason: Pain TECHNIQUE: Frontal view of the chest. COMPARISON: Chest x-ray, 07/30/16 FINDINGS: Lungs: Unremarkable. No consolidation. Pleural space: Pleural effusion. No pneumothorax. Heart: Cardiac silhouette is enlarged. Mediastinum: Unremarkable. Bones/joints: Unremarkable. IMPRESSION: Cardiomegaly. No consolidation or pulmonary edema.
[2016-08-15 01:30] LABS: INR 2.4 (<1.1); Partial Thromboplastin Time 33.2 sec (22.0-30.0); Prothrombin Time 23.1 sec (9.0-12.0)
[2016-08-15 01:42] LABS: Creatine Kinase MB 0.9 ng/mL (0.0-2.4)
[2016-08-15 01:45] LABS: Troponin I 0.076 ng/mL (0.000-0.034)
[2016-08-15 01:46] LABS: Appearance,Urine Clear (Clear); Bacteria,Urine Rare /hpf; Bilirubin,Urine 1+ (Negative); Glucose,Urine (UA) Negative (Negative); Ketones,Urine Trace (Negative); Leukocyte Esterase,Urine Moderate (Negative); Mucus,Urine Rare /hpf; Nitrite,Urine Negative (Negative); PH, Urine 5.5 (5.0-8.0); Particle Count 3675; Protein,Urine 2+ (Negative); RBC,Urine 13 /hpf (0-5); Squamous Epithelial Cell,Urine 5 /hpf (0-4); UA Billing (MACRO vs. MICRO) MICRO; WBC,Urine 5 /hpf (0-5)
[2016-08-15] MEDS ORDERED: DILTIAZEM 125 MG in SODIUM CHLORIDE 0.9% 100 ML IV ONE (02:06)
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
[2016-08-15] MEDS: SODIUM CHLORIDE 0.9% 1,000 ML IV SCH ×4 (02:53→20:46)
[2016-08-15] MEDS ORDERED: KETOROLAC 30 MG/ML 1 ML VIAL IVP PRN (02:58)
[2016-08-15] MEDS ORDERED: NALOXONE 0.4 MG/ML 1 ML VIAL IV PRN (02:58)
[2016-08-15 06:06] LABS: Glucose,Whole Blood 155 mg/dL (75-99)
[2016-08-15 08:11] LABS: Creatine Kinase MB 2.3 ng/mL (0.0-2.4)
[2016-08-15 08:15] LABS: Troponin I 0.24 ng/mL (0.000-0.034)
[2016-08-15] MEDS: GABAPENTIN 300 MG CAP PO SCH ×2 (09:17→20:10)
[2016-08-15] MEDS: METOPROLOL TARTRATE 50 MG TAB PO SCH ×2 (09:17→20:10)
[2016-08-15] MEDS: FENOFIBRATE 160 MG TAB PO SCH (09:17)
[2016-08-15] MEDS: TAMSULOSIN 0.4 MG CAP.ER.24H PO SCH (09:18)
[2016-08-15] MEDS: NIACIN TR 500 MG CAPSULE.ER PO SCH (09:18)
[2016-08-15] MEDS: PANTOPRAZOLE 40 MG/10 ML VIAL IV SCH (09:18)
--- NOTE | 2016-08-15 11:12 | P.CRDCN ---
History of Present Illness Consult date: 08/15/16 Chief complaint: Fever and chills History of present illness: This is a pleasant 61-year-old gentleman who sees Dr. Lopez in the office as an outpatient with a past medical history significant for chronic atrial fibrillation, diabetes, hypertension, dyslipidemia and obesity, was brought to the hospital with a change in mental status. The patient was found to be febrile in the emergency room. He is known to have critical limb ischemia of the lower extremities bilaterally with nonhealing wounds. The patient follows at the wound clinic. He just was admitted recently to the hospital with cellulitis and was discharged on antibiotic. He was brought to the hospital by ambulance because of a change in mental status and because of temperature of 102.5. On physical examination, he has extensive bilateral lower extremities changes with wounds. We get involved in the care of the patient because he was tachycardic. The patient was in A. fib with RVR. He did not have any symptoms of chest pain or discomfort, difficulty breathing, but he was feeling the heart was racing up slightly. The patient was started on Cardizem drip. He is on Coumadin for anticoagulation. The cardiac enzymes were checked and came in to be slightly abnormal. The patient atrial fibrillation and rapid ventricular response is likely to be triggered by the fever and chills. Currently he has been maintaining heart rate in the 70s and 80s and he is on 5 mg of Cardizem IV. I will stop the Cardizem IV and continue the metoprolol at 100 mg by mouth twice a day. We'll continue anticoagulation using Coumadin. He just underwent an echocardiogram recently and that showed normal LV function with moderate pulmonary hypertension and mild aortic stenoses. The abnormal cardiac enzymes are likely secondary to the atrial fibrillation with RVR. Past Medical History Past Medical History: Atrial Fibrillation, Diabetes Mellitus, Eye Disorder, Hearing Disorder / Deafness, Hyperlipidemia, Hypertension, Osteoarthritis (OA), Prostate Disorder, Sleep Apnea/CPAP/BIPAP, Vascular Disorder Additional Past Medical History / Comment(s): Pt fell 01/06/16 R humeral fracture. Other HX: NIDDM, irritable bowel syndrome, numerous wounds bilateral legs and feet and an abdominal wound after previous hernia surgery with mesh - has been tx in wound center and has had several debridements, currently being treated in wound center for bilateral lower leg ulcers, charcot Lfoot, hx of diabetic villareal grade 2 bilateral foot ulcers, abdominal wall ulceration with I&D, urinary calculus., BPH, bilateral hands and feet peripheral neuropathy, L eye astigmatism, edentulous. History of Any Multi-Drug Resistant Organisms: MRSA Date of last positivie culture/infection: 02/15/16 MDRO Source:: legs Past Surgical History: Bladder Surgery, Hernia Repair, Tonsillectomy Additional Past Surgical History / Comment(s): I and D abdominal wall ulcer s/p abdominal hernia repair with mesh-infected post op and mesh exposed, wound center tx for bilateral feet ulcers-healed and discharged 03/25/14, current wound center tx for bilateral lower leg ulcers, picc line insertion and removal , cystoscopy which was unsuccessful for removing bladder stone. Past Anesthesia/Blood Transfusion Reactions: No Reported Reaction Past Psychological History: Anxiety, Depression Additional Psychological History / Comment(s): Remains an ongoing daily tobacco smoker. Does have history of occasional alcohol use. Denies difficulty with alcohol use. Denies recreational drug use.He is on medical alf.To begin travels. Noanimalexposures. Ambulates with cane. Drives short distances. Smoking Status: Current every day smoker Past Alcohol Use History: Occasional Additional Past Alcohol Use History / Comment(s): Pt states he started smoking in 1972 and is about a ppd smoker. Pt states he drinks every couple days- a couple whiskeys. Past Drug Use History: None Reported - Past Family History Brother(s) Family Medical History: Cancer Additional Family Medical History / Comment(s): Breast cancer Father Family Medical History: Diabetes Mellitus Additional Family Medical History / Comment(s): Father of a brain tumor in his early 80s Mother Family Medical History: No Reported History Additional Family Medical History / Comment(s): Still living. Medications and Allergies Home Medications Medication Instructions Recorded Confirmed Type Fenofibrate Nanocrystallized 145 mg PO DAILY 07/27/16 08/15/16 History [Tricor] Finasteride [Proscar] 5 mg PO HS 07/27/16 08/15/16 History Gabapentin [Neurontin] 300 mg PO BID 07/27/16 08/15/16 History Insulin Glargine,Hum.rec.anlog 60 unit SQ HS 07/27/16 08/15/16 History [Lantus Solostar] Metoprolol Tartrate [Lopressor] 100 mg PO BID 07/27/16 08/15/16 History Niacin [Niacin ER] 500 mg PO DAILY 07/27/16 08/15/16 History Tamsulosin HCl [Flomax] 0.4 mg PO QAM 07/27/16 08/15/16 History Allopurinol [Zyloprim] 100 mg PO DAILY 08/15/16 08/15/16 History Furosemide [Lasix] 40 mg PO BID 08/15/16 08/15/16 History Gabapentin [Neurontin] 100 mg PO BID 08/15/16 08/15/16 History Spironolactone [Aldactone] 25 mg PO DAILY 08/15/16 08/15/16 History Warfarin [Coumadin] 1.25 mg PO DAILY 08/15/16 08/15/16 History buPROPion HCL [Wellbutrin XL] 300 mg PO DAILY 08/15/16 08/15/16 History Allergies Allergy/AdvReac Type Severity Reaction Status Date / Time sulfamethoxazole Allergy Rash/Hives Verified 08/15/16 06:20 [From Bactrim] trimethoprim [From Bactrim] Allergy Rash/Hives Verified 08/15/16 06:20 Physical Exam Vitals: Vital Signs Temp Pulse Resp BP Pulse Ox 08/15/16 06:08 78 18 08/15/16 06:07 97.5 F L 78 18 112/69 93 L Intake and Output 08/14/16 08/15/16 08/15/16 22:59 06:59 14:59 Other: Voiding Method Toilet # Voids 1 Results 08/15/16 00:40 08/15/16 00:40 Cardiac Enzymes 08/15/16 Range/Units 06:40 CK-MB (CK-2) 2.3 (0.0-2.4) ng/mL Troponin I 0.240 H* (0.000-0.034) ng/mL Current Medications Generic Name Dose Route Start Last Admin Trade Name Freq PRN Reason Stop Dose Admin Acetaminophen 650 mg 08/15/16 02:58 Tylenol Tab PO Q6HR PRN Mild Pain or Fever > 100.5 Fenofibrate 160 mg 08/15/16 09:00 08/15/16 09:17 Lofibra PO 160 mg DAILY CARLOS Administration Finasteride 5 mg 08/15/16 21:00 Proscar PO HS CARLOS Gabapentin 300 mg 08/15/16 09:00 08/15/16 09:17 Neurontin PO 300 mg BID CARLOS Administration Sodium Chloride 1,000 mls @ 200 mls/hr 08/15/16 00:30 08/15/16 06:19 Saline 0.9% IV Not Given .Q5H CARLOS Diltiazem HCl 125 mg/ Sodium 125 mls @ 5 mls/hr 08/15/16 02:06 08/15/16 02:47 Chloride IV 08/16/16 02:05 5 mg/hr .Q24H ONE 5 mls/hr Protocol Administration 5 MG/HR Vancomycin HCl 2,000 mg/ 500 mls @ 167 mls/hr 08/15/16 08:00 Sodium Chloride IVPB Q16H CARLOS Insulin Glargine 60 unit 08/15/16 21:00 Lantus SQ HS CARLOS Ketorolac Tromethamine 30 mg 08/15/16 02:58 Toradol IVP 08/20/16 02:59 Q6HR PRN Moderate Pain Metoprolol Tartrate 100 mg 08/15/16 09:00 08/15/16 09:17 Lopressor PO 100 mg BID CARLOS Administration Morphine Sulfate 4 mg 08/15/16 02:58 Morphine Sulfate (Inj) IV Q4HR PRN Severe Pain Naloxone HCl 0.2 mg 08/15/16 02:58 Narcan IV Q2M PRN Opioid Reversal Niacin 500 mg 08/15/16 09:00 08/15/16 09:18 Niacin Tr PO 500 mg DAILY CARLOS Administration Ondansetron HCl 4 mg 08/15/16 02:58 Zofran IVP Q8HR PRN Nausea And Vomiting Pantoprazole Sodium 40 mg 08/15/16 09:00 08/15/16 09:18 Protonix IV 40 mg DAILY CARLOS Administration Tamsulosin HCl 0.4 mg 08/15/16 09:00 08/15/16 09:18 Flomax PO 0.4 mg QAM CARLOS Administration Warfarin Sodium 1.25 mg 08/15/16 18:00 Coumadin PO 1800 [facility] Intake and Output 08/14/16 08/15/16 08/15/16 22:59 06:59 14:59 Other: Voiding Method Toilet # Voids 1 Assessment and Plan Plan: Assessment #1 bilateral lower extremities critical limb ischemia "CLI" #2 atrial fibrillation was controlled heart rate #3 multiple comorbid conditions #4 mildly abnormal cardiac enzymes Plan #1 DC the Cardizem IV and continue metoprolol by mouth #2 continue anticoagulation was Coumadin #3 the abnormal cardiac enzymes are likely secondary to tachycardia induced by the A. fib #4 we will continue following up with the patient
[2016-08-15 12:02] LABS: Glucose,Whole Blood 157 mg/dL (75-99)
--- NOTE | 2016-08-15 12:05 | P.HPIM ---
History of Present Illness H&P Date: 08/15/16 Chief Complaint: Change in mental status This is a 61-year-old gentleman with history of chronic atrial fibrillation, diabetes, hypertension, dyslipidemia and chronic lower extremity wounds who was recently discharged from the hospital with the same complaints, the hospital with change in mental status. Patient probably was noted to have a fever 102.5. Patient was noted to have critical limb ischemia bilaterally was been followed up by wound care and vascular surgery. Dr. Delgado has seen him in the recent times. Patient appears to be lethargic, is not able to answer many questions. Is not able to stay awake during our conversation. Her most of the history is obtained from chart review. Patient was noted to have a elevated done cardiac enzyme. Patient was noted to be in A. fib with RVR is currently on a Cardizem drip. Past medical history includes a moderate pulmonary hypertension with the mild aortic stenosis and a preserved LV function Review of Systems ROS unobtainable: due to mental status Past Medical History Past Medical History: Atrial Fibrillation, Diabetes Mellitus, Eye Disorder, Hearing Disorder / Deafness, Hyperlipidemia, Hypertension, Osteoarthritis (OA), Prostate Disorder, Sleep Apnea/CPAP/BIPAP, Vascular Disorder Additional Past Medical History / Comment(s): Pt fell 01/06/16 R humeral fracture. Other HX: NIDDM, irritable bowel syndrome, numerous wounds bilateral legs and feet and an abdominal wound after previous hernia surgery with mesh - has been tx in wound center and has had several debridements, currently being treated in wound center for bilateral lower leg ulcers, charcot Lfoot, hx of diabetic villareal grade 2 bilateral foot ulcers, abdominal wall ulceration with I&D, urinary calculus., BPH, bilateral hands and feet peripheral neuropathy, L eye astigmatism, edentulous. History of Any Multi-Drug Resistant Organisms: MRSA Date of last positivie culture/infection: 02/15/16 MDRO Source:: legs Past Surgical History: Bladder Surgery, Hernia Repair, Tonsillectomy Additional Past Surgical History / Comment(s): I and D abdominal wall ulcer s/p abdominal hernia repair with mesh-infected post op and mesh exposed, wound center tx for bilateral feet ulcers-healed and discharged 03/25/14, current wound center tx for bilateral lower leg ulcers, picc line insertion and removal , cystoscopy which was unsuccessful for removing bladder stone. Past Anesthesia/Blood Transfusion Reactions: No Reported Reaction Past Psychological History: Anxiety, Depression Additional Psychological History / Comment(s): Remains an ongoing daily tobacco smoker. Does have history of occasional alcohol use. Denies difficulty with alcohol use. Denies recreational drug use.He is on medical alf.To begin travels. Noanimalexposures. Ambulates with cane. Drives short distances. Smoking Status: Current every day smoker Past Alcohol Use History: Occasional Additional Past Alcohol Use History / Comment(s): Pt states he started smoking in 1972 and is about a ppd smoker. Pt states he drinks every couple days- a couple whiskeys. Past Drug Use History: None Reported - Past Family History Brother(s) Family Medical History: Cancer Additional Family Medical History / Comment(s): Breast cancer Father Family Medical History: Diabetes Mellitus Additional Family Medical History / Comment(s): Father of a brain tumor in his early 80s Mother Family Medical History: No Reported History Additional Family Medical History / Comment(s): Still living. Medications and Allergies Home Medications Medication Instructions Recorded Confirmed Type Fenofibrate Nanocrystallized 145 mg PO DAILY 07/27/16 08/15/16 History [Tricor] Finasteride [Proscar] 5 mg PO HS 07/27/16 08/15/16 History Gabapentin [Neurontin] 300 mg PO BID 07/27/16 08/15/16 History Insulin Glargine,Hum.rec.anlog 60 unit SQ HS 07/27/16 08/15/16 History [Lantus Solostar] Metoprolol Tartrate [Lopressor] 100 mg PO BID 07/27/16 08/15/16 History Niacin [Niacin ER] 500 mg PO DAILY 07/27/16 08/15/16 History Tamsulosin HCl [Flomax] 0.4 mg PO QAM 07/27/16 08/15/16 History Allopurinol [Zyloprim] 100 mg PO DAILY 08/15/16 08/15/16 History Furosemide [Lasix] 40 mg PO BID 08/15/16 08/15/16 History Gabapentin [Neurontin] 100 mg PO BID 08/15/16 08/15/16 History Spironolactone [Aldactone] 25 mg PO DAILY 08/15/16 08/15/16 History Warfarin [Coumadin] 1.25 mg PO DAILY 08/15/16 08/15/16 History buPROPion HCL [Wellbutrin XL] 300 mg PO DAILY 08/15/16 08/15/16 History Allergies Allergy/AdvReac Type Severity Reaction Status Date / Time sulfamethoxazole Allergy Rash/Hives Verified 08/15/16 06:20 [From Bactrim] trimethoprim [From Bactrim] Allergy Rash/Hives Verified 08/15/16 06:20 Physical Exam Vitals: Vital Signs Temp Pulse Resp BP Pulse Ox 08/15/16 08:00 96 F L 91 16 129/70 08/15/16 06:08 78 18 08/15/16 06:07 97.5 F L 78 18 112/69 93 L Intake and Output 08/14/16 08/15/16 08/15/16 22:59 06:59 14:59 Other: Voiding Method Toilet Toilet # Voids 1 Gen. appearance lethargic Neck is supple no JVD Lungs air movement is appreciated no rhonchi or wheezing or crackles Heart systolic murmurs appreciated regular Abdomen there is a chronic wound in epigastric region from a previous surgical scar bowel is palpated bowel sounds intact Lower extremities diffuse repeat lower extremities with the a large ulcer on the left anterior foot edema appreciated Neuro is lethargic Results CBC & Chem 7: 08/15/16 00:40 08/15/16 00:40 Labs: Abnormal Lab Results - Last 24 Hours (Table) 08/15/16 08/15/16 Range/Units 06:04 06:40 POC Glucose (mg/dL) 155 H (75-99) mg/dL Total Creatine Kinase 196 H (55-170) U/L Troponin I 0.240 H* (0.000-0.034) ng/mL Assessment and Plan Plan: #1 sepsis secondary to likely bilateral lower x-ray cellulitis #2 acute kidney injury likely secondary to above #3 moderate pulmonary hypertension #4 metabolic encephalopathy that is acute secondary to above #5 severe PAD #6 atrial fibrillation on any correlation #7 atrial fibrillation with rapid ventricular rate on admission #8 diabetes mellitus type 2 #9 obesity #10 obstructive sleep apnea #11 history of essential hypertension plan Continue Cardizem drip. Impaired antibody therapy. We'll obtain a consultation with ID who has seen him in the past Patient does have significant disease disease in the lower extremities if repeat admissions to occur consideration for an amputation, if no treatment options are available DVT prophylaxis O2 as needed Breathing treatments.
[2016-08-15] MEDS: cefTRIAXone 2,000 MG in SODIUM CHLORIDE 0.9% 100 ML IVPB SCH ×2 (12:46→12:55)
[2016-08-15] MEDS: VANCOMYCIN 2,000 MG in SODIUM CHLORIDE 0.9% 500 ML IVPB SCH ×2 (12:46→12:55)
[2016-08-15 13:12] LABS: Creatine Kinase MB 2.9 ng/mL (0.0-2.4); Troponin I 0.201 ng/mL (0.000-0.034)
--- NOTE | 2016-08-15 14:35 | P.CONS ---
History of Present Illness - Reason for Consult Consult date: 08/15/16 - Chief Complaint fever and weakness - History of Present Illness 61-year-old male with a long-standing history of diabetes mellitus type 2 poorly controlled as well as coronary artery disease congestive heart failure and chronic lower extremity edema. He was recently hospitalized without evidence of an infection to his left leg and heel. He was seen by vascular surgery has been following the wound center. The patient has been on antibiotic therapy with ciprofloxacin. For the isolated pathogens. The patient relates in the days before coming to hospital he started to feel ill. Increasing weakness. Increasing swelling and redness to the leg. An increasing over the left heel. His was trying to get him to come to the hospital for days before he finally came because he became so weak that he could no longer object. Upon arrival to the emergency center temperature 102.2 was noted. He was also having difficulty with worsening arrhythmia with his atrial fibrillation having a rapid ventricular response. He has been seen by cardiology. And there is been improvement of his uncontrolled rhythm. He still feels poorly. He's had fever which is feeling slightly better at this time still has chills. Is concerned about the ongoing ulceration to his left heel. He'll ever relates that he has not been offloading it. He can't wear any shoes causes his legs are so swollen. Spends his time in a lazy boy recliner when he is at home. Review of Systems Constitutional: Reports chronic pain, Reports lethargy, Reports malaise, Denies night sweats, does complain of fever and chill at home Eyes: bilateral decreased vision Ears: deny: decreased hearing Ears, nose, mouth and throat: Denies dysphagia, Denies headache, Denies nasal congestion, Denies odynophagia Cardiovascular: Reports decreased exercise tolerance, Reports dyspnea on exertion, Reports orthopnea, Reports shortness of breath, Denies claudication Respiratory: Reports dyspnea, Reports wheezing Gastrointestinal: Denies change in bowel habits, Denies hematemesis, Denies hematochezia, Denies loss of appetite, Denies melena, Denies nausea, Denies vomiting Genitourinary: Denies hematuria, Denies incontinence Musculoskeletal: Reports frequent falls, Reports gait dysfunction Integumentary: Ulceration to the right heel with the ongoing lower extremity edema and redness Neurological: Reports sensory deficit, Reports weakness Endocrine: Reports high blood sugars Hematologic/Lymphatic: Reports lymphedema, Denies lymphadenopathy Past Medical History Past Medical History: Atrial Fibrillation, Diabetes Mellitus, Eye Disorder, Hearing Disorder / Deafness, Hyperlipidemia, Hypertension, Osteoarthritis (OA), Prostate Disorder, Sleep Apnea/CPAP/BIPAP, Vascular Disorder Additional Past Medical History / Comment(s): Pt fell 01/06/16 R humeral fracture. Other HX: NIDDM, irritable bowel syndrome, numerous wounds bilateral legs and feet and an abdominal wound after previous hernia surgery with mesh - has been tx in wound center and has had several debridements, currently being treated in wound center for bilateral lower leg ulcers, charcot Lfoot, hx of diabetic villareal grade 2 bilateral foot ulcers, abdominal wall ulceration with I&D, urinary calculus., BPH, bilateral hands and feet peripheral neuropathy, L eye astigmatism, edentulous. History of Any Multi-Drug Resistant Organisms: MRSA Year Discovered:: 02/15/16 MDRO Source:: legs Past Surgical History: Bladder Surgery, Hernia Repair, Tonsillectomy Additional Past Surgical History / Comment(s): I and D abdominal wall ulcer s/p abdominal hernia repair with mesh-infected post op and mesh exposed, wound center tx for bilateral feet ulcers-healed and discharged 03/25/14, current wound center tx for bilateral lower leg ulcers, picc line insertion and removal , cystoscopy which was unsuccessful for removing bladder stone. Past Anesthesia/Blood Transfusion Reactions: No Reported Reaction Past Psychological History: Anxiety, Depression Additional Psychological History / Comment(s): Remains an ongoing daily tobacco smoker. Does have history of occasional alcohol use. Denies difficulty with alcohol use. Denies recreational drug use.He is on medical senior living.To begin travels. No animalexposures. Ambulates with cane. Not able to drive as of late Smoking Status: Current every day smoker Past Alcohol Use History: Occasional Additional Past Alcohol Use History / Comment(s): Pt states he started smoking in 1972 and is about a ppd smoker. Pt states he drinks every couple days- a couple whiskeys. Past Drug Use History: None Reported - Past Family History Brother(s) Family Medical History: Cancer Additional Family Medical History / Comment(s): Breast cancer Father Family Medical History: Diabetes Mellitus Additional Family Medical History / Comment(s): Father of a brain tumor in his early 80s Mother Family Medical History: No Reported History Additional Family Medical History / Comment(s): Still living. Medications and Allergies Home Medications and Allergies Comment(s): Current Medications Acetaminophen (Tylenol Tab) 650 mg PO Q6HR PRN PRN Reason: Mild Pain or Fever > 100.5 Fenofibrate (Lofibra) 160 mg PO DAILY [facility] Last Admin: 08/15/16 09:17 Dose: 160 mg Finasteride (Proscar) 5 mg PO HS [facility] Gabapentin (Neurontin) 300 mg PO BID [facility] Last Admin: 08/15/16 09:17 Dose: 300 mg Sodium Chloride (Saline 0.9%) 1,000 mls @ 200 mls/hr IV .Q5H [facility] Last Admin: 08/15/16 06:19 Dose: Not Given Vancomycin HCl 2,000 mg/ (Sodium Chloride) 500 mls @ 167 mls/hr IVPB Q16H [facility] Last Admin: 08/15/16 12:55 Dose: 167 mls/hr Ceftriaxone Sodium 2,000 mg/ (Sodium Chloride) 100 mls @ 100 mls/hr IVPB Q24HR [facility] Last Admin: 08/15/16 12:55 Dose: 100 mls/hr Insulin Glargine (Lantus) 60 unit SQ HS [facility] Ketorolac Tromethamine (Toradol) 30 mg IVP Q6HR PRN PRN Reason: Moderate Pain Stop: 08/20/16 02:59 Metoprolol Tartrate (Lopressor) 100 mg PO BID [facility] Last Admin: 08/15/16 09:17 Dose: 100 mg Morphine Sulfate (Morphine Sulfate (Inj)) 4 mg IV Q4HR PRN PRN Reason: Severe Pain Naloxone HCl (Narcan) 0.2 mg IV Q2M PRN PRN Reason: Opioid Reversal Niacin (Niacin Tr) 500 mg PO DAILY [facility] Last Admin: 08/15/16 09:18 Dose: 500 mg Ondansetron HCl (Zofran) 4 mg IVP Q8HR PRN PRN Reason: Nausea And Vomiting Pantoprazole Sodium (Protonix) 40 mg IV DAILY [facility] Last Admin: 08/15/16 09:18 Dose: 40 mg Tamsulosin HCl (Flomax) 0.4 mg PO QAM [facility] Last Admin: 08/15/16 09:18 Dose: 0.4 mg Warfarin Sodium (Coumadin) 1.25 mg PO 1800 [facility] Home Medications Medication Instructions Recorded Confirmed Type Fenofibrate Nanocrystallized 145 mg PO DAILY 07/27/16 08/15/16 History [Tricor] Finasteride [Proscar] 5 mg PO HS 07/27/16 08/15/16 History Gabapentin [Neurontin] 300 mg PO BID 07/27/16 08/15/16 History Insulin Glargine,Hum.rec.anlog 60 unit SQ HS 07/27/16 08/15/16 History [Lantus Solostar] Metoprolol Tartrate [Lopressor] 100 mg PO BID 07/27/16 08/15/16 History Niacin [Niacin ER] 500 mg PO DAILY 07/27/16 08/15/16 History Tamsulosin HCl [Flomax] 0.4 mg PO QAM 07/27/16 08/15/16 History Allopurinol [Zyloprim] 100 mg PO DAILY 08/15/16 08/15/16 History Furosemide [Lasix] 40 mg PO BID 08/15/16 08/15/16 History Gabapentin [Neurontin] 100 mg PO BID 08/15/16 08/15/16 History Spironolactone [Aldactone] 25 mg PO DAILY 08/15/16 08/15/16 History Warfarin [Coumadin] 1.25 mg PO DAILY 08/15/16 08/15/16 History buPROPion HCL [Wellbutrin XL] 300 mg PO DAILY 08/15/16 08/15/16 History Allergies Allergy/AdvReac Type Severity Reaction Status Date / Time sulfamethoxazole Allergy Rash/Hives Verified 08/15/16 06:20 [From Bactrim] trimethoprim [From Bactrim] Allergy Rash/Hives Verified 08/15/16 06:20 Physical Exam Vitals: Vital Signs Temp Pulse Resp BP Pulse Ox 08/15/16 08:00 96 F L 91 16 129/70 08/15/16 06:08 78 18 08/15/16 06:07 97.5 F L 78 18 112/69 93 L Intake and Output 08/14/16 08/15/16 08/15/16 22:59 06:59 14:59 Other: Voiding Method Toilet Toilet # Voids 1 61 year-old male who suffers from obesity. Seems to be modestly uncomfortable at this time. HEENT: Anicteric conjunctiva are pink and moist nasal mucosa grossly intact without significant lesions, there is no thrush. Dentition is warm for age. Neck: The neck is supple without significant lymphadenopathy or thyromegaly. Lungs: Symmetrical air entry is noted with evidence of extra wheezes that are scattered. No julian bronchial sounds were noted. No egophony or dullness. Heart: Irregular with an audible S1 and S2, no S3 soft S4, no new murmur click or rub. Abdomen: Obese, Positive bowel sounds soft and nontender without palpable masses or organomegaly. There was no guarding or rebound. Evidence of the prior abdominal surgeries noted. At the most superior aspect of the surgical incision is evidence of some hyper-granulation tissue. At the base of the hyperventilation tissue is exposed mesh. Extremities: There is bilateral lower extremity edema. There some erythema to both lower extremities. Much more prominent on the right lower extremity from the knee distally. There is evidence of the significant ulceration to the heel that measures at 7.1 x 5.2 x 0.3 cm. There is extensive necrosis at present. This is sharp and debrided away with scissors and forceps. He is insensate and has no complaints of pain. Neuro: Awake alert oriented to person place and time. There are no acute new gross focal sensory motor deficits. hAs distinct neuropathy bilateral lower extremity knee distal Results CBC & Chem 7: 08/15/16 00:40 08/15/16 00:40 Labs: Abnormal Lab Results - Last 24 Hours (Table) 08/15/16 08/15/16 08/15/16 Range/Units 06:04 06:40 11:54 POC Glucose (mg/dL) 155 H (75-99) mg/dL Total Creatine Kinase 196 H 209 H (55-170) U/L CK-MB (CK-2) 2.9 H* (0.0-2.4) ng/mL Troponin I 0.240 H* 0.201 H* (0.000-0.034) ng/mL 08/15/16 Range/Units 11:56 POC Glucose (mg/dL) 157 H (75-99) mg/dL Total Creatine Kinase (55-170) U/L CK-MB (CK-2) (0.0-2.4) ng/mL Troponin I (0.000-0.034) ng/mL Laboratory Results WBC 19.2 k/uL (3.8-10.6) H 08/15/16 00:40 RBC 4.00 m/uL (4.30-5.90) L 08/15/16 00:40 Hgb 12.1 gm/dL (13.0-17.5) L 08/15/16 00:40 Hct 39.4 % (39.0-53.0) 08/15/16 00:40 MCV 98.6 fL (80.0-100.0) 08/15/16 00:40 MCH 30.2 pg (25.0-35.0) 08/15/16 00:40 MCHC 30.7 g/dL (31.0-37.0) L 08/15/16 00:40 RDW 15.1 % (11.5-15.5) 08/15/16 00:40 Plt Count 458 k/uL (150-450) H 08/15/16 00:40 Neutrophils % 90 % 08/15/16 00:40 Lymphocytes % 3 % 08/15/16 00:40 Monocytes % 4 % 05 00:40 Eosinophils % 0 % 08/15/16 00:40 Basophils % 0 % 08/15/16 00:40 Neutrophils # 17.3 k/uL (1.3-7.7) H 08/15/16 00:40 Lymphocytes # 0.7 k/uL (1.0-4.8) L 08/15/16 00:40 Monocytes # 0.8 k/uL (0-1.0) 08/15/16 00:40 Eosinophils # 0.0 k/uL (0-0.7) 08/15/16 00:40 Basophils # 0.1 k/uL (0-0.2) 08/15/16 00:40 Hypochromasia Moderate 08/15/16 00:40 PT 23.1 sec (9.0-12.0) H 08/15/16 00:40 INR 2.4 (<1.1) 08/15/16 00:40 APTT 33.2 sec (22.0-30.0) H 08/15/16 00:40 Sodium 141 mmol/L (137-145) 08/15/16 00:40 Potassium 3.9 mmol/L (3.5-5.1) 08/15/16 00:40 Chloride 103 mmol/L (98-107) 08/15/16 00:40 Carbon Dioxide 27 mmol/L (22-30) 08/15/16 00:40 Anion Gap 11 mmol/L 08/15/16 00:40 BUN 25 mg/dL (9-20) H 08/15/16 00:40 Creatinine 1.30 mg/dL (0.66-1.25) H 08/15/16 00:40 Est GFR (MDRD) Af Amer >60 (>60 ml/min/1.73 sqM) 08/15/16 00:40 Est GFR (MDRD) Non-Af 56 (>60 ml/min/1.73 sqM) 08/15/16 00:40 Glucose 146 mg/dL (74-99) H 08/15/16 00:40 POC Glucose (mg/dL) 157 mg/dL (75-99) H 08/15/16 11:56 POC Glu Timing Inspector VINAYAK Tanja Díaz 08/15/16 11:56 Plasma Lactic Acid Cristiano 1.0 mmol/L (0.7-2.0) 08/15/16 08:00 Calcium 8.7 mg/dL (8.4-10.2) 08/15/16 00:40 Total Bilirubin 1.6 mg/dL (0.2-1.3) H 08/15/16 00:40 AST 23 U/L (17-59) 08/15/16 00:40 ALT 24 U/L (21-72) 08/15/16 00:40 Alkaline Phosphatase 105 U/L (38-126) 08/15/16 00:40 Total Creatine Kinase 209 U/L (55-170) H 08/15/16 11:54 CK-MB (CK-2) 2.9 ng/mL (0.0-2.4) H* 08/15/16 11:54 CK-MB (CK-2) Rel Index 1.4 08/15/16 11:54 Troponin I 0.201 ng/mL (0.000-0.034) H* 08/15/16 11:54 Total Protein 6.7 g/dL (6.3-8.2) 08/15/16 00:40 Albumin 3.0 g/dL (3.5-5.0) L 08/15/16 00:40 Urine Color Dark Yellow 08/15/16 00:40 Urine Appearance Clear (Clear) 08/15/16 00:40 Urine pH 5.5 (5.0-8.0) 08/15/16 00:40 Ur Specific [place] 1.020 (1.001-1.035) 08/15/16 00:40 Urine Protein 2+ (Negative) H 08/15/16 00:40 Urine Glucose (UA) Negative (Negative) 08/15/16 00:40 Urine Ketones Trace (Negative) H 08/15/16 00:40 Urine Blood Small (Negative) H 08/15/16 00:40 Urine Nitrite Negative (Negative) 08/15/16 00:40 Urine Bilirubin 1+ (Negative) H 08/15/16 00:40 Urine Urobilinogen 6.0 mg/dL (<2.0) 08/15/16 00:40 Ur Leukocyte Esterase Moderate (Negative) H 08/15/16 00:40 Urine RBC 13 /hpf (0-5) H 08/15/16 00:40 Urine WBC 5 /hpf (0-5) 08/15/16 00:40 Urine WBC Clumps Rare /hpf (None) H 08/15/16 00:40 Ur Squamous Epith Cells 5 /hpf (0-4) H 08/15/16 00:40 Urine Bacteria Rare /hpf (None) H 08/15/16 00:40 Hyaline Casts 8 /lpf (0-2) H 08/15/16 00:40 Urine Mucus Rare /hpf (None) H 08/15/16 00:40 Assessment and Plan (1) Sepsis Status: Acute (2) Diabetic ulcer of right heel associated with diabetes mellitus due to underlying condition, with fat layer exposed Status: Acute (3) Leukocytosis Status: Acute (4) Afib Status: Acute
[2016-08-15] MEDS ORDERED: COLLAGENASE 250 UNIT/GM OINTMENT 30 GM TUBE TOPICAL SCH (14:45)
[2016-08-15] MEDS: MORPHINE SULFATE 4 MG/ML SYRINGE IV PRN ×2 (16:24→21:57)
[2016-08-15] MEDS: WARFARIN 1.25 MG TAB PO SCH (16:26)
[2016-08-15 17:20] LABS: Glucose,Whole Blood 123 mg/dL (75-99)
[2016-08-15] MEDS: FINASTERIDE 5 MG TAB PO SCH (20:10)
[2016-08-15 20:46] LABS: Glucose,Whole Blood 137 mg/dL (75-99)
[2016-08-15] MEDS: INSULIN GLARGINE 100 UNIT/ML 10 ML VIAL SQ SCH (20:52)
[2016-08-16] MEDS: MORPHINE SULFATE 4 MG/ML SYRINGE IV PRN ×6 (01:41→23:10)
[2016-08-16] MEDS: SODIUM CHLORIDE 0.9% 1,000 ML IV SCH ×4 (04:12→23:10)
[2016-08-16] MEDS: METOPROLOL TARTRATE 50 MG TAB PO SCH ×3 (05:19→21:17)
[2016-08-16 06:25] LABS: Glucose,Whole Blood 86 mg/dL (75-99)
[2016-08-16] MEDS: NIACIN TR 500 MG CAPSULE.ER PO SCH (08:08)
[2016-08-16] MEDS: TAMSULOSIN 0.4 MG CAP.ER.24H PO SCH (08:08)
[2016-08-16] MEDS: PANTOPRAZOLE 40 MG/10 ML VIAL IV SCH (08:08)
[2016-08-16] MEDS: FENOFIBRATE 160 MG TAB PO SCH (08:09)
[2016-08-16] MEDS ORDERED: LORazepam 2 MG/ML SYRINGE IV STA (08:38)
[2016-08-16] MEDS: cefTRIAXone 2,000 MG in SODIUM CHLORIDE 0.9% 100 ML IVPB SCH (08:47)
--- NOTE | 2016-08-16 08:47 | P.PN ---
Subjective Principal diagnosis: Left lower extremity cellulitis. This is a interval progress note a 61-year-old white male essentially admitted for recurrent cellulitis. The patient has seems more agitated. He actually missed follow-up after recent discharge for cellulitis at my office. Home health nursing has been stated that he is somewhat and significantly noncompliant. Nursing staff states today significant agitation. Ativan to be given when necessary. Appreciate Dr. Kaur consultation. Objective - Vital Signs Vital signs: Vital Signs Temp 98 F 08/16/16 08:00 Pulse 115 H 08/16/16 08:00 Resp 19 08/16/16 08:00 BP 115/65 08/16/16 08:00 Pulse Ox 94 L 08/16/16 08:00 Intake & Output 08/15/16 08/16/16 08/16/16 18:59 06:59 18:59 Intake Total 1000 0 Output Total 100 Balance 900 0 Weight 155.5 kg Intake: IV 1000 Sodium Chloride 0.9% 1, 1000 000 ml @ 200 mls/hr IV . Q5H [facility] Rx#:[id number] Oral 0 Output: Urine 100 Other: Voiding Method Toilet Bedside Commode Bedside Commode Urinal Urinal # Voids 1 - Constitutional General appearance: Present: obese - EENT Eyes: Absent: abnormal pupil - Respiratory Respiratory: bilateral: diminished - Cardiovascular Rhythm: irregularly irregular Heart sounds: normal: S1, S2 - Gastrointestinal General gastrointestinal: Present: soft. Absent: tenderness - Integumentary Integumentary: Present: cellulitis - Neurologic Neurologic: Present: CNII-XII intact - Labs CBC & Chem 7: 08/15/16 00:40 08/15/16 00:40 Labs: Abnormal Lab Results - Last 24 Hours (Table) 08/15/16 08/15/16 08/15/16 Range/Units 11:54 11:56 17:03 POC Glucose (mg/dL) 157 H 123 H (75-99) mg/dL Total Creatine Kinase 209 H (55-170) U/L CK-MB (CK-2) 2.9 H* (0.0-2.4) ng/mL Troponin I 0.201 H* (0.000-0.034) ng/mL 08/15/16 Range/Units 20:46 POC Glucose (mg/dL) 137 H (75-99) mg/dL Total Creatine Kinase (55-170) U/L CK-MB (CK-2) (0.0-2.4) ng/mL Troponin I (0.000-0.034) ng/mL Assessment and Plan (1) Open wound of both legs with complication Status: Acute (2) Cellulitis of left lower extremity Status: Acute (3) Cellulitis of right leg Status: Acute (4) Illiterate Status: Acute (5) Smoking Status: Acute Plan: Continue current antibiotic treatment per Dr. Kaur. Wound control. Sliding scale insulin. Check CBC and CMP in a.m. See orders otherwise. Time with Patient: Less than 30
[2016-08-16] MEDS: GABAPENTIN 300 MG CAP PO SCH ×2 (08:56→21:17)
[2016-08-16] MEDS ORDERED: VANCOMYCIN 2,000 MG in SODIUM CHLORIDE 0.9% 500 ML IVPB ONE (09:00)
[2016-08-16] MEDS: DILTIAZEM 125 MG in SODIUM CHLORIDE 0.9% 100 ML IV SCH (09:50)
[2016-08-16 11:18] LABS: INR 4.4 (<1.1); Prothrombin Time 43.6 sec (9.0-12.0)
[2016-08-16 12:04] LABS: Glucose,Whole Blood 63 mg/dL (75-99)
[2016-08-16] MEDS: WARFARIN 1.25 MG TAB PO SCH (12:16)
[2016-08-16 12:43] LABS: Glucose,Whole Blood 64 mg/dL (75-99)
[2016-08-16 12:43] LABS: Glucose,Whole Blood 78 mg/dL (75-99)
[2016-08-16] MEDS: VANCOMYCIN 2,000 MG in SODIUM CHLORIDE 0.9% 500 ML IVPB SCH (15:57)
--- NOTE | 2016-08-16 16:24 | P.PN ---
Subjective Principal diagnosis: Sepsis This is a pleasant 61-year-old gentleman who sees Dr. Lopez in the office as an outpatient with a past medical history significant for chronic atrial fibrillation, diabetes, hypertension, dyslipidemia and obesity, was brought to the hospital with a change in mental status.The patient was found to be febrile in the emergency room. He is known to have critical limb ischemia of the lower extremities bilaterally with nonhealing wounds. The patient follows at the wound clinic. He just was admitted recently to the hospital with cellulitis and was discharged on antibiotic.He was brought to the hospital by ambulance because of a change in mental status and because of temperature of 102.5.On physical examination, he has extensive bilateral lower extremities changes with wounds. We get involved in the care of the patient because he was tachycardic. The patient was in A. fib with RVR.He did not have any symptoms of chest pain or discomfort, difficulty breathing, but he was feeling the heart was racing up slightly. Initially the patient was on an IV Cardizem drip, his dose of beta bella was increased. This morning his heart rate again was up into the 1929 range and he was reinitiated on IV Cardizem. Patient was quite confused this morning, he was given mild sedation. Sleepy at the time of my examination. He is on Coumadin for anticoagulation. INR today is 4.4, Coumadin was placed on hold. Troponins came back to be mildly abnormal, likely secondary to A. fib with RVR. Objective - Vital Signs Vital signs: Vital Signs Temp 98 F 08/16/16 15:13 Pulse 113 H 08/16/16 15:15 Resp 20 08/16/16 15:15 BP 120/69 08/16/16 15:13 Pulse Ox 92 L 08/16/16 15:13 Intake & Output 08/15/16 08/16/16 08/16/16 18:59 06:59 18:59 Intake Total 1000 540 Output Total 100 150 Balance 900 390 Weight 155.5 kg Intake: IV 1000 Sodium Chloride 0.9% 1, 1000 000 ml @ 200 mls/hr IV . Q5H [facility] Rx#:[id number] Intake, IV Titration 300 Amount Sodium Chloride 0.9% 1, 300 000 ml @ 75 mls/hr IV . [id number] [facility] Rx#:[id number] Oral 240 Output: Urine 100 150 Other: Voiding Method Toilet Bedside Commode Bedside Commode Urinal Urinal # Voids 1 2 - Exam PHYSICAL EXAMINATION: HEENT: [Head is atraumatic, normocephalic. Pupils equal, round. Neck is supple. There is no elevated jugular venous pressure.] HEART EXAMINATION: Heart S1 and S2 irregularly irregular a systolic murmur is CHEST EXAMINATION:[ Lungs are clear to auscultation and precussion. No chest wall tenderness is noted on palpation or with deep breathing.] ABDOMEN: [ Soft, nontender. Bowel sounds are heard. No organomegaly noted]. EXTREMITIES: 1+ peripheral pulses large ulcerated area noted on the left anterior foot. One plus edema.. NEUROLOGIC [patient is sleepy, confused. - Labs CBC & Chem 7: 08/15/16 00:40 08/15/16 00:40 Labs: Abnormal Lab Results - Last 24 Hours (Table) 08/15/16 08/15/16 08/16/16 Range/Units 17:03 20:46 10:42 PT 43.6 H (9.0-12.0) sec POC Glucose (mg/dL) 123 H 137 H (75-99) mg/dL 08/16/16 08/16/16 Range/Units 11:47 12:17 PT (9.0-12.0) sec POC Glucose (mg/dL) 63 L 64 L (75-99) mg/dL Assessment and Plan (1) Bilateral lower leg cellulitis Status: Acute (2) Acute kidney injury Status: Acute (3) Pulmonary HTN Status: Acute (4) PAD (peripheral artery disease) Status: Acute (5) Chronic a-fib Status: Acute (6) Sepsis Status: Acute Plan: From cardiology's perspective, we will hold patient's dose of Coumadin today. A Cardizem drip, from tomorrow slubber frame changer to oral Cardizem. DNP note has been reviewed, I agree with a documented findings and plan of care. Patient was seen and examined.
[2016-08-16 16:58] LABS: Glucose,Whole Blood 88 mg/dL (75-99)
[2016-08-16 20:51] LABS: Glucose,Whole Blood 79 mg/dL (75-99)
[2016-08-16] MEDS: COLLAGENASE 250 UNIT/GM OINTMENT 30 GM TUBE TOPICAL SCH (21:16)
[2016-08-16] MEDS: FINASTERIDE 5 MG TAB PO SCH (21:17)
--- NOTE | 2016-08-16 21:49 | P.PN ---
Subjective Principal diagnosis: fever cellulitis 61-year-old male with a long-standing history of diabetes mellitus type 2 poorly controlled as well as coronary artery disease congestive heart failure and chronic lower extremity edema. He was recently hospitalized without evidence of an infection to his left leg and heel. He was seen by vascular surgery has been following the wound center. The patient has been on antibiotic therapy with ciprofloxacin. For the isolated pathogens. The patient relates in the days before coming to hospital he started to feel ill. Increasing weakness. Increasing swelling and redness to the leg. An increasing over the left heel. His was trying to get him to come to the hospital for days before he finally came because he became so weak that he could no longer object. Upon arrival to the emergency center temperature 102.2 was noted. He was also having difficulty with worsening arrhythmia with his atrial fibrillation having a rapid ventricular response. He has been seen by cardiology. And there is been improvement of his uncontrolled rhythm. He still feels poorly. He's had fever which is feeling slightly better at this time still has chills. Is concerned about the ongoing ulceration to his left heel. He relates that he has not been offloading it. He can't wear any shoes causes his legs are so swollen. Spends his time in a lazy- boy recliner when he is at home. states he feels better today denies new discomforts Objective - Vital Signs Vital signs: Vital Signs Temp 97 F L 08/16/16 19:57 Pulse 120 H 08/16/16 19:57 Resp 18 08/16/16 19:57 BP 120/79 08/16/16 19:57 Pulse Ox 97 08/16/16 19:57 Intake & Output 08/16/16 08/16/16 08/17/16 06:59 18:59 06:59 Intake Total 1000 540 Output Total 100 150 Balance 900 390 Weight 155.5 kg Intake: IV 1000 Sodium Chloride 0.9% 1, 1000 000 ml @ 200 mls/hr IV . Q5H [facility] Rx#:[id number] Intake, IV Titration 300 Amount Sodium Chloride 0.9% 1, 300 000 ml @ 75 mls/hr IV . [id number] [facility] Rx#:[id number] Oral 240 Output: Urine 100 150 Other: Voiding Method Bedside Commode Bedside Commode Urinal Urinal # Voids 1 2 0 - Exam 61 year-old male who suffers from obesity. Seems to be modestly uncomfortable at this time. HEENT: Anicteric conjunctiva are pink and moist nasal mucosa grossly intact without significant lesions, there is no thrush. Dentition is warm for age. Neck: The neck is supple without significant lymphadenopathy or thyromegaly. Lungs: Symmetrical air entry is noted with evidence of extra wheezes that are scattered. No julian bronchial sounds were noted. No egophony or dullness. Heart: Irregular with an audible S1 and S2, no S3 soft S4, no new murmur click or rub. Abdomen: Obese, Positive bowel sounds soft and nontender without palpable masses or organomegaly. There was no guarding or rebound. Evidence of the prior abdominal surgeries noted. At the most superior aspect of the surgical incision is evidence of some hyper-granulation tissue. At the base of the hyperventilation tissue is exposed mesh. Extremities: There is bilateral lower extremity edema. There some erythema to both lower extremities. Much more prominent on the right lower extremity from the knee distally. There is evidence of the significant ulceration to the heel that measures at 7.1 x 5.2 x 0.3 cm. There is extensive necrosis at present. This is sharp and debrided away with scissors and forceps. He is insensate and has no complaints of pain. Neuro: Awake alert oriented to person place and time. There are no acute new gross focal sensory motor deficits. hAs distinct neuropathy bilateral lower extremity knee distal - Labs CBC & Chem 7: 08/15/16 00:40 08/15/16 00:40 Labs: Abnormal Lab Results - Last 24 Hours (Table) 08/16/16 08/16/16 08/16/16 Range/Units 10:42 11:47 12:17 PT 43.6 H (9.0-12.0) sec POC Glucose (mg/dL) 63 L 64 L (75-99) mg/dL Laboratory Results WBC 19.2 k/uL (3.8-10.6) H 08/15/16 00:40 RBC 4.00 m/uL (4.30-5.90) L 08/15/16 00:40 Hgb 12.1 gm/dL (13.0-17.5) L 08/15/16 00:40 Hct 39.4 % (39.0-53.0) 08/15/16 00:40 MCV 98.6 fL (80.0-100.0) 08/15/16 00:40 MCH 30.2 pg (25.0-35.0) 08/15/16 00:40 MCHC 30.7 g/dL (31.0-37.0) L 08/15/16 00:40 RDW 15.1 % (11.5-15.5) 08/15/16 00:40 Plt Count 458 k/uL (150-450) H 08/15/16 00:40 Neutrophils % 90 % 08/15/16 00:40 Lymphocytes % 3 % 08/15/16 00:40 Monocytes % 4 % 08/15/16 00:40 Eosinophils % 0 % 08/15/16 00:40 Basophils % 0 % 08/15/16 00:40 Neutrophils # 17.3 k/uL (1.3-7.7) H 08/15/16 00:40 Lymphocytes # 0.7 k/uL (1.0-4.8) L 08/15/16 00:40 Monocytes # 0.8 k/uL (0-1.0) 08/15/16 00:40 Eosinophils # 0.0 k/uL (0-0.7) 08/15/16 00:40 Basophils # 0.1 k/uL (0-0.2) 08/15/16 00:40 Hypochromasia Moderate 08/15/16 00:40 PT 43.6 sec (9.0-12.0) H 08/16/16 10:42 INR 4.4 (<1.1) 08/16/16 10:42 APTT 33.2 sec (22.0-30.0) H 08/15/16 00:40 Sodium 141 mmol/L (137-145) 08/15/16 00:40 Potassium 3.9 mmol/L (3.5-5.1) 08/15/16 00:40 Chloride 103 mmol/L (98-107) 08/15/16 00:40 Carbon Dioxide 27 mmol/L (22-30) 08/15/16 00:40 Anion Gap 11 mmol/L 08/15/16 00:40 BUN 25 mg/dL (9-20) H 08/15/16 00:40 Creatinine 1.30 mg/dL (0.66-1.25) H 08/15/16 00:40 Est GFR (MDRD) Af Amer >60 (>60 ml/min/1.73 sqM) 08/15/16 00:40 Est GFR (MDRD) Non-Af 56 (>60 ml/min/1.73 sqM) 08/15/16 00:40 Glucose 146 mg/dL (74-99) H 08/15/16 00:40 POC Glucose (mg/dL) 79 mg/dL (75-99) 08/16/16 20:45 POC Glu Clinical Quality Analyst ID Serenity Johns 08/16/16 20:45 Plasma Lactic Acid Cristiano 1.0 mmol/L (0.7-2.0) 08/15/16 08:00 Calcium 8.7 mg/dL (8.4-10.2) 08/15/16 00:40 Total Bilirubin 1.6 mg/dL (0.2-1.3) H 08/15/16 00:40 AST 23 U/L (17-59) 08/15/16 00:40 ALT 24 U/L (21-72) 08/15/16 00:40 Alkaline Phosphatase 105 U/L (38-126) 08/15/16 00:40 Total Creatine Kinase 209 U/L (55-170) H 08/15/16 11:54 CK-MB (CK-2) 2.9 ng/mL (0.0-2.4) H* 08/15/16 11:54 CK-MB (CK-2) Rel Index 1.4 08/15/16 11:54 Troponin I 0.201 ng/mL (0.000-0.034) H* 08/15/16 11:54 Total Protein 6.7 g/dL (6.3-8.2) 08/15/16 00:40 Albumin 3.0 g/dL (3.5-5.0) L 08/15/16 00:40 Urine Color Dark Yellow 08/15/16 00:40 Urine Appearance Clear (Clear) 08/15/16 00:40 Urine pH 5.5 (5.0-8.0) 08/15/16 00:40 Ur Specific [place] 1.020 (1.001-1.035) 08/15/16 00:40 Urine Protein 2+ (Negative) H 08/15/16 00:40 Urine Glucose (UA) Negative (Negative) 08/15/16 00:40 Urine Ketones Trace (Negative) H 08/15/16 00:40 Urine Blood Small (Negative) H 08/15/16 00:40 Urine Nitrite Negative (Negative) 08/15/16 00:40 Urine Bilirubin 1+ (Negative) H 08/15/16 00:40 Urine Urobilinogen 6.0 mg/dL (<2.0) 08/15/16 00:40 Ur Leukocyte Esterase Moderate (Negative) H 08/15/16 00:40 Urine RBC 13 /hpf (0-5) H 08/15/16 00:40 Urine WBC 5 /hpf (0-5) 08/15/16 00:40 Urine WBC Clumps Rare /hpf (None) H 08/15/16 00:40 Ur Squamous Epith Cells 5 /hpf (0-4) H 08/15/16 00:40 Urine Bacteria Rare /hpf (None) H 08/15/16 00:40 Hyaline Casts 8 /lpf (0-2) H 08/15/16 00:40 Urine Mucus Rare /hpf (None) H 08/15/16 00:40 Microbiology 08/15/16 00:40 Urine,Voided Urine Culture - Final 08/15/16 00:40 Blood Blood Culture - Preliminary No Growth after 24 hours Assessment and Plan (1) Sepsis Narrative/Plan: 61-year-old male who has a history of multiple medical troubles that includes diabetes obesity coronary artery disease and atrial fibrillation. Presents to Hospital feeling very poorly. He had worsening cardiac dysrhythmia his atrial fibrillation and developed a rapid ventricular response. Became weak and ill and constantly remitted to coming to hospital. He is having difficulty with worsening ulceration to his heel. It was noted during his last hospital stay. And is to be getting ongoing care at the wound healing Center. During the last stay it was a goal to have him go to extended care however he refused. And then with therapy he was proving that he was able to get up and move a bit. Despite this he has not been doing well at home. He's been getting worse. He now has marked worsening infection to the right leg. Prior culture shows evidence of MRSA, klebsiella and Proteus infection. Constantly vancomycin and ceftriaxone will be given for now until we have further data. Avoid Levaquin use since he is on Coumadin. Patient is chronic medical noncompliance. He simply the hemoglobin A1c was down to 6.1 Patient has been having difficulties with offloading the heel. A brown air but is been requested to get up and off the bed at this time. We'll need to have a specialty boot designed the time of his discharge to take weight off of the heel. He will follow the wound healing Center. He' will continue follow-up with the vascular surgeon. Local wound care with Santyl will be utilized given large amount of necrotic material, may need surgical debridement Pain control is improved Atrial fibrillation is controlled. 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
[2016-08-16] MEDS: INSULIN GLARGINE 100 UNIT/ML 10 ML VIAL SQ SCH (22:02)
[2016-08-17] MEDS: DILTIAZEM 125 MG in SODIUM CHLORIDE 0.9% 100 ML IV SCH (03:09)
[2016-08-17] MEDS: MORPHINE SULFATE 4 MG/ML SYRINGE IV PRN (04:00)
[2016-08-17 06:24] LABS: Glucose,Whole Blood 91 mg/dL (75-99)
[2016-08-17 07:38] LABS: CH 29.9; CHCM 29.2; HCT 43.4 % (39.0-53.0); HDW 3.31; HGB 12.6 gm/dL (13.0-17.5); Hypochromasia Marked; MCH 29.9 pg (25.0-35.0); MCV 102.9 fL (80.0-100.0); Macrocytosis Slight; Mean Platelet Volume 7.4; RBC 4.22 m/uL (4.30-5.90); RDW 15.2 % (11.5-15.5); WBC 14.5 k/uL (3.8-10.6)
[2016-08-17 07:46] LABS: Calcium 8.4 mg/dL (8.4-10.2); Total Bilirubin 1.1 mg/dL (0.2-1.3); Total Protein 6.8 g/dL (6.3-8.2)
[2016-08-17 07:55] LABS: Potassium 5.3 mmol/L (3.5-5.1)
[2016-08-17] MEDS: NIACIN TR 500 MG CAPSULE.ER PO SCH (07:56)
[2016-08-17] MEDS: GABAPENTIN 300 MG CAP PO SCH ×2 (07:56→21:14)
[2016-08-17] MEDS: METOPROLOL TARTRATE 50 MG TAB PO SCH ×2 (07:56→21:14)
[2016-08-17] MEDS: ACETAMINOPHEN TAB 325 MG TAB PO PRN (07:56)
[2016-08-17] MEDS: TAMSULOSIN 0.4 MG CAP.ER.24H PO SCH (07:56)
[2016-08-17] MEDS: PANTOPRAZOLE 40 MG/10 ML VIAL IV SCH (07:57)
[2016-08-17] MEDS: FENOFIBRATE 160 MG TAB PO SCH (07:57)
[2016-08-17] MEDS: VANCOMYCIN 2,000 MG in SODIUM CHLORIDE 0.9% 500 ML IVPB SCH (08:02)
[2016-08-17 08:06] LABS: Prothrombin Time 52.1 sec (9.0-12.0)
[2016-08-17 08:42] LABS: INR 5.2 (<1.1)
[2016-08-17] MEDS: SODIUM CHLORIDE 0.9% 1,000 ML IV SCH (11:21)
[2016-08-17 11:30] LABS: Glucose,Whole Blood 150 mg/dL (75-99)
--- NOTE | 2016-08-17 14:47 | P.PN ---
Subjective Principal diagnosis: Sepsis This is a pleasant 61-year-old gentleman who sees Dr. Lopez in the office as an outpatient with a past medical history significant for chronic atrial fibrillation, diabetes, hypertension, dyslipidemia and obesity, was brought to the hospital with a change in mental status.The patient was found to be febrile in the emergency room. He is known to have critical limb ischemia of the lower extremities bilaterally with nonhealing wounds. The patient follows at the wound clinic. He just was admitted recently to the hospital with cellulitis and was discharged on antibiotic.He was brought to the hospital by ambulance because of a change in mental status and because of temperature of 102.5.On physical examination, he has extensive bilateral lower extremities changes with wounds. We get involved in the care of the patient because he was tachycardic. The patient was in A. fib with RVR.He did not have any symptoms of chest pain or discomfort, difficulty breathing, but he was feeling the heart was racing up slightly. Initially the patient was on an IV Cardizem drip, his dose of beta bella was increased. Yesterday morning his heart rate again was up into [id number] range and he was reinitiated on IV Cardizem. He continues to be in atrial fibrillation with a heart rate today in the 70s. We will discontinue the IV Cardizem drip. INR today 5.2, potassium 5.3, creatinine 1.5. We'll continue to hold the Coumadin. Objective - Vital Signs Vital signs: Vital Signs Temp 97 F L 08/17/16 11:32 Pulse 97 08/17/16 11:32 Resp 18 08/17/16 11:32 BP 105/73 08/17/16 11:32 Pulse Ox 93 L 08/17/16 11:32 Intake & Output 08/16/16 08/17/16 08/17/16 18:59 06:59 18:59 Intake Total 540 761.583 236 Output Total 150 250 Balance 390 511.583 236 Weight 155.5 kg Intake: Intake, IV Titration 300 761.583 Amount Diltiazem 125 mg In 86.583 Sodium Chloride 0.9% 100 ml @ 5 MG/HR 5 mls/hr IV .Q24H [facility] Rx#:[id number] Sodium Chloride 0.9% 1, 300 675 000 ml @ 75 mls/hr IV . [id number] [facility] Rx#:[id number] Oral 240 236 Output: Urine 150 250 Other: Voiding Method Bedside Commode Bedside Commode Bedside Commode Urinal # Voids 2 0 - Exam PHYSICAL EXAMINATION: HEENT: [Head is atraumatic, normocephalic. Pupils equal, round. Neck is supple. There is no elevated jugular venous pressure.] HEART EXAMINATION: Heart S1 and S2 irregularly irregular a systolic murmur is CHEST EXAMINATION:[ Lungs are clear to auscultation and precussion. No chest wall tenderness is noted on palpation or with deep breathing.] ABDOMEN: [ Soft, nontender. Bowel sounds are heard. No organomegaly noted]. EXTREMITIES: 1+ peripheral pulses large ulcerated area noted on the left anterior foot. One plus edema.. NEUROLOGIC [patient is sleepy, confused. - Labs CBC & Chem 7: 08/17/16 06:53 08/17/16 06:53 Labs: Abnormal Lab Results - Last 24 Hours (Table) 08/17/16 08/17/16 08/17/16 Range/Units 06:53 06:53 06:53 WBC 14.5 H (3.8-10.6) k/uL RBC 4.22 L (4.30-5.90) m/uL Hgb 12.6 L (13.0-17.5) gm/dL MCV 102.9 H (80.0-100.0) fL MCHC 29.0 L (31.0-37.0) g/dL Plt Count 479 H (150-450) k/uL PT 52.1 H (9.0-12.0) sec INR 5.2 H* (<1.1) Potassium 5.3 H (3.5-5.1) mmol/L Carbon Dioxide 20 L (22-30) mmol/L BUN 35 H (9-20) mg/dL Creatinine 1.53 H (0.66-1.25) mg/dL POC Glucose (mg/dL) (75-99) mg/dL Albumin 2.9 L (3.5-5.0) g/dL 08/17/16 Range/Units 11:29 WBC (3.8-10.6) k/uL RBC (4.30-5.90) m/uL Hgb (13.0-17.5) gm/dL MCV (80.0-100.0) fL MCHC (31.0-37.0) g/dL Plt Count (150-450) k/uL PT (9.0-12.0) sec INR (<1.1) Potassium (3.5-5.1) mmol/L Carbon Dioxide (22-30) mmol/L BUN (9-20) mg/dL Creatinine (0.66-1.25) mg/dL POC Glucose (mg/dL) 150 H (75-99) mg/dL Albumin (3.5-5.0) g/dL Assessment and Plan (1) Bilateral lower leg cellulitis Status: Acute (2) Acute kidney injury Status: Acute (3) Pulmonary HTN Status: Acute (4) PAD (peripheral artery disease) Status: Acute (5) Chronic a-fib Status: Acute (6) Sepsis Status: Acute Plan: From cardiology's perspective, we will hold patient's dose of Coumadin today. Discontinue IV Cardizem drip, continue metoprolol tartrate 100 mg by mouth twice a day DNP note has been reviewed, I agree with a documented findings and plan of care. Patient was seen and examined.
[2016-08-17 16:24] LABS: Glucose,Whole Blood 194 mg/dL (75-99)
[2016-08-17 21:05] LABS: Glucose,Whole Blood 138 mg/dL (75-99)
[2016-08-17] MEDS: COLLAGENASE 250 UNIT/GM OINTMENT 30 GM TUBE TOPICAL SCH (21:14)
[2016-08-17] MEDS: INSULIN GLARGINE 100 UNIT/ML 10 ML VIAL SQ SCH (21:14)
[2016-08-17] MEDS: FINASTERIDE 5 MG TAB PO SCH (21:14)
--- NOTE | 2016-08-17 21:33 | P.PN ---
Subjective Principal diagnosis: fever cellulitis 61-year-old male with a long-standing history of diabetes mellitus type 2 poorly controlled as well as coronary artery disease congestive heart failure and chronic lower extremity edema. He was recently hospitalized without evidence of an infection to his left leg and heel. He was seen by vascular surgery has been following the wound center. The patient has been on antibiotic therapy with ciprofloxacin. For the isolated pathogens. The patient relates in the days before coming to hospital he started to feel ill. Increasing weakness. Increasing swelling and redness to the leg. An increasing over the left heel. His was trying to get him to come to the hospital for days before he finally came because he became so weak that he could no longer object. Upon arrival to the emergency center temperature 102.2 was noted. He was also having difficulty with worsening arrhythmia with his atrial fibrillation having a rapid ventricular response. He has been seen by cardiology. And there is been improvement of his uncontrolled rhythm. He still feels poorly. He's had fever which is feeling slightly better at this time still has chills. Is concerned about the ongoing ulceration to his left heel. He relates that he has not been offloading it. He can't wear any shoes causes his legs are so swollen. Spends his time in a lazy- boy recliner when he is at home. states he feels better today denies new discomforts Much improved today, awake and interactive less discomfort Objective - Vital Signs Vital signs: Vital Signs Temp 96.9 F L 08/17/16 16:00 Pulse 94 08/17/16 16:00 Resp 18 08/17/16 16:00 BP 115/74 08/17/16 16:00 Pulse Ox 93 L 08/17/16 16:00 Intake & Output 08/17/16 08/17/16 08/18/16 06:59 18:59 06:59 Intake Total 761.583 236 Output Total 250 Balance 511.583 236 Weight 155.5 kg Intake: Intake, IV Titration 761.583 Amount Diltiazem 125 mg In 86.583 Sodium Chloride 0.9% 100 ml @ 5 MG/HR 5 mls/hr IV .Q24H [facility] Rx#:[id number] Sodium Chloride 0.9% 1, 675 000 ml @ 75 mls/hr IV . [id number] [facility] Rx#:[id number] Oral 236 Output: Urine 250 Other: Voiding Method Bedside Commode Bedside Commode # Voids 0 - Exam 61 year-old male who suffers from obesity. Seems to be modestly uncomfortable at this time. HEENT: Anicteric conjunctiva are pink and moist nasal mucosa grossly intact without significant lesions, there is no thrush. Dentition is warm for age. Neck: The neck is supple without significant lymphadenopathy or thyromegaly. Lungs: Symmetrical air entry is noted with evidence of extra wheezes that are scattered. No julian bronchial sounds were noted. No egophony or dullness. Heart: Irregular with an audible S1 and S2, no S3 soft S4, no new murmur click or rub. Abdomen: Obese, Positive bowel sounds soft and nontender without palpable masses or organomegaly. There was no guarding or rebound. Evidence of the prior abdominal surgeries noted. At the most superior aspect of the surgical incision is evidence of some hyper-granulation tissue. At the base of the hyperventilation tissue is exposed mesh. Extremities: There is bilateral lower extremity edema. There some erythema to both lower extremities. Much more prominent on the right lower extremity from the knee distally. There is evidence of the significant ulceration to the heel that measures at 7.1 x 5.2 x 0.3 cm. Neuro: Awake alert oriented to person place and time. There are no acute new gross focal sensory motor deficits. Has distinct neuropathy bilateral lower extremity knee distal - Labs CBC & Chem 7: 08/17/16 06:53 08/17/16 06:53 Labs: Abnormal Lab Results - Last 24 Hours (Table) 08/17/16 08/17/16 08/17/16 Range/Units 06:53 06:53 06:53 WBC 14.5 H (3.8-10.6) k/uL RBC 4.22 L (4.30-5.90) m/uL Hgb 12.6 L (13.0-17.5) gm/dL MCV 102.9 H (80.0-100.0) fL MCHC 29.0 L (31.0-37.0) g/dL Plt Count 479 H (150-450) k/uL PT 52.1 H (9.0-12.0) sec INR 5.2 H* (<1.1) Potassium 5.3 H (3.5-5.1) mmol/L Carbon Dioxide 20 L (22-30) mmol/L BUN 35 H (9-20) mg/dL Creatinine 1.53 H (0.66-1.25) mg/dL POC Glucose (mg/dL) (75-99) mg/dL Albumin 2.9 L (3.5-5.0) g/dL 08/17/16 08/17/16 08/17/16 Range/Units 11:29 16:23 21:03 WBC (3.8-10.6) k/uL RBC (4.30-5.90) m/uL Hgb (13.0-17.5) gm/dL MCV (80.0-100.0) fL MCHC (31.0-37.0) g/dL Plt Count (150-450) k/uL PT (9.0-12.0) sec INR (<1.1) Potassium (3.5-5.1) mmol/L Carbon Dioxide (22-30) mmol/L BUN (9-20) mg/dL Creatinine (0.66-1.25) mg/dL POC Glucose (mg/dL) 150 H 194 H 138 H (75-99) mg/dL Albumin (3.5-5.0) g/dL Laboratory Results WBC 14.5 k/uL (3.8-10.6) H 08/17/16 06:53 RBC 4.22 m/uL (4.30-5.90) L 08/17/16 06:53 Hgb 12.6 gm/dL (13.0-17.5) L 08/17/16 06:53 Hct 43.4 % (39.0-53.0) 08/17/16 06:53 MCV 102.9 fL (80.0-100.0) H 08/17/16 06:53 MCH 29.9 pg (25.0-35.0) 08/17/16 06:53 MCHC 29.0 g/dL (31.0-37.0) L 08/17/16 06:53 RDW 15.2 % (11.5-15.5) 08/17/16 06:53 Plt Count 479 k/uL (150-450) H 08/17/16 06:53 Neutrophils % 90 % 08/15/16 00:40 Lymphocytes % 3 % 08/15/16 00:40 Monocytes % 4 % 08/15/16 00:40 Eosinophils % 0 % 08/15/16 00:40 Basophils % 0 % 08/15/16 00:40 Neutrophils # 17.3 k/uL (1.3-7.7) H 08/15/16 00:40 Lymphocytes # 0.7 k/uL (1.0-4.8) L 08/15/16 00:40 Monocytes # 0.8 k/uL (0-1.0) 08/15/16 00:40 Eosinophils # 0.0 k/uL (0-0.7) 08/15/16 00:40 Basophils # 0.1 k/uL (0-0.2) 08/15/16 00:40 Hypochromasia Marked 08/17/16 06:53 Macrocytosis Slight 08/17/16 06:53 PT 52.1 sec (9.0-12.0) H 08/17/16 06:53 INR 5.2 (<1.1) H* 08/17/16 06:53 APTT 33.2 sec (22.0-30.0) H 08/15/16 00:40 Sodium 137 mmol/L (137-145) 08/17/16 06:53 Potassium 5.3 mmol/L (3.5-5.1) H 08/17/16 06:53 Chloride 106 mmol/L (98-107) 08/17/16 06:53 Carbon Dioxide 20 mmol/L (22-30) L 08/17/16 06:53 Anion Gap 11 mmol/L 08/17/16 06:53 BUN 35 mg/dL (9-20) H 08/17/16 06:53 Creatinine 1.53 mg/dL (0.66-1.25) H 08/17/16 06:53 Est GFR (MDRD) Af Amer 56 (>60 ml/min/1.73 sqM) 08/17/16 06:53 Est GFR (MDRD) Non-Af 47 (>60 ml/min/1.73 sqM) 08/17/16 06:53 Glucose 77 mg/dL (74-99) 08/17/16 06:53 POC Glucose (mg/dL) 138 mg/dL (75-99) H 08/17/16 21:03 POC Glu Stenographer Secretary ID Jett Gallardo 08/17/16 21:03 Plasma Lactic Acid Cristiano 1.0 mmol/L (0.7-2.0) 08/15/16 08:00 Calcium 8.4 mg/dL (8.4-10.2) 08/17/16 06:53 Total Bilirubin 1.1 mg/dL (0.2-1.3) 08/17/16 06:53 AST 59 U/L (17-59) 08/17/16 06:53 ALT 23 U/L (21-72) 08/17/16 06:53 Alkaline Phosphatase 73 U/L (38-126) 08/17/16 06:53 Total Creatine Kinase 209 U/L (55-170) H 08/15/16 11:54 CK-MB (CK-2) 2.9 ng/mL (0.0-2.4) H* 08/15/16 11:54 CK-MB (CK-2) Rel Index 1.4 08/15/16 11:54 Troponin I 0.201 ng/mL (0.000-0.034) H* 08/15/16 11:54 Total Protein 6.8 g/dL (6.3-8.2) 08/17/16 06:53 Albumin 2.9 g/dL (3.5-5.0) L 08/17/16 06:53 Urine Color Dark Yellow 08/15/16 00:40 Urine Appearance Clear (Clear) 08/15/16 00:40 Urine pH 5.5 (5.0-8.0) 08/15/16 00:40 Ur Specific [place] 1.020 (1.001-1.035) 08/15/16 00:40 Urine Protein 2+ (Negative) H 08/15/16 00:40 Urine Glucose (UA) Negative (Negative) 08/15/16 00:40 Urine Ketones Trace (Negative) H 08/15/16 00:40 Urine Blood Small (Negative) H 08/15/16 00:40 Urine Nitrite Negative (Negative) 08/15/16 00:40 Urine Bilirubin 1+ (Negative) H 08/15/16 00:40 Urine Urobilinogen 6.0 mg/dL (<2.0) 08/15/16 00:40 Ur Leukocyte Esterase Moderate (Negative) H 08/15/16 00:40 Urine RBC 13 /hpf (0-5) H 08/15/16 00:40 Urine WBC 5 /hpf (0-5) 08/15/16 00:40 Urine WBC Clumps Rare /hpf (None) H 08/15/16 00:40 Ur Squamous Epith Cells 5 /hpf (0-4) H 08/15/16 00:40 Urine Bacteria Rare /hpf (None) H 08/15/16 00:40 Hyaline Casts 8 /lpf (0-2) H 08/15/16 00:40 Urine Mucus Rare /hpf (None) H 08/15/16 00:40 Microbiology 08/15/16 00:40 Blood Blood Culture - Preliminary No Growth after 48 hours 08/15/16 00:40 Urine,Voided Urine Culture - Final Assessment and Plan (1) Sepsis Narrative/Plan: 61-year-old male who has a history of multiple medical troubles that includes diabetes obesity coronary artery disease and atrial fibrillation. Presents to Hospital feeling very poorly. He had worsening cardiac dysrhythmia his atrial fibrillation and developed a rapid ventricular response. Became weak and ill and constantly remitted to coming to hospital. He is having difficulty with worsening ulceration to his heel. It was noted during his last hospital stay. And is to be getting ongoing care at the wound healing Center. During the last stay it was a goal to have him go to extended care however he refused. And then with therapy he was proving that he was able to get up and move a bit. Despite this he has not been doing well at home. He's been getting worse. He now has marked worsening infection to the right leg. Prior culture shows evidence of MRSA, klebsiella and Proteus infection. Constantly vancomycin and ceftriaxone will be given for now until we have further data. Avoid Levaquin use since he is on Coumadin. Patient is chronic medical noncompliance. He has hemoglobin A1c was down to 6.1 Patient has been having difficulties with offloading the heel. A brown air boot is been requested to get up and off the bed at this time. We'll need to have a specialty boot designed the time of his discharge to take weight off of the heel. He will follow the wound healing Center. He' will continue follow- up with the vascular surgeon. Local wound care with Santyl will be utilized given large amount of necrotic material, may need surgical debridement Pain control is improved Atrial fibrillation is controlled. 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
[2016-08-17] MEDS ORDERED: VANCOMYCIN TROUGH DUE 1 EACH MISC MISCELLANE ONE (23:00)
--- NOTE | 2016-08-17 23:17 | P.PN ---
Subjective Principal diagnosis: Left lower extremity cellulitis. This continuing progress note on a 61-year-old white male essentially admitted for recurrent chronic cellulitis of the lower extremity bilaterally. He has element of sepsis and had significant mental status changes yesterday. The patient is now stable and awake. No voiding difficulties. We discussed at length, his appropriate hygiene. Objective - Vital Signs Vital signs: Vital Signs Temp 96.9 F L 08/17/16 16:00 Pulse 102 H 08/17/16 20:00 Resp 18 08/17/16 20:00 BP 121/75 08/17/16 20:00 Pulse Ox 94 L 08/17/16 20:00 Intake & Output 08/17/16 08/17/16 08/18/16 06:59 18:59 06:59 Intake Total 761.583 236 10 Output Total 250 Balance 511.583 236 10 Weight 155.5 kg 155.5 kg Intake: Intake, IV Titration 761.583 10 Amount Diltiazem 125 mg In 86.583 Sodium Chloride 0.9% 100 ml @ 5 MG/HR 5 mls/hr IV .Q24H [facility] Rx#:[id number] Sodium Chloride 0.9% 1, 675 10 000 ml @ 75 mls/hr IV . [id number] [facility] Rx#:[id number] Oral 236 Output: Urine 250 Other: Voiding Method Bedside Commode Bedside Commode Bedside Commode # Voids 0 - Constitutional General appearance: Present: obese - EENT Eyes: Absent: abnormal pupil - Respiratory Respiratory: bilateral: CTA - Cardiovascular Rhythm: regular Heart sounds: normal: S1, S2 - Gastrointestinal General gastrointestinal: Absent: tenderness - Integumentary Integumentary: Present: cellulitis - Neurologic Neurologic: Present: CNII-XII intact - Labs CBC & Chem 7: 08/17/16 06:53 08/17/16 06:53 Labs: Abnormal Lab Results - Last 24 Hours (Table) 08/17/16 08/17/16 08/17/16 Range/Units 06:53 06:53 06:53 WBC 14.5 H (3.8-10.6) k/uL RBC 4.22 L (4.30-5.90) m/uL Hgb 12.6 L (13.0-17.5) gm/dL MCV 102.9 H (80.0-100.0) fL MCHC 29.0 L (31.0-37.0) g/dL Plt Count 479 H (150-450) k/uL PT 52.1 H (9.0-12.0) sec INR 5.2 H* (<1.1) Potassium 5.3 H (3.5-5.1) mmol/L Carbon Dioxide 20 L (22-30) mmol/L BUN 35 H (9-20) mg/dL Creatinine 1.53 H (0.66-1.25) mg/dL POC Glucose (mg/dL) (75-99) mg/dL Albumin 2.9 L (3.5-5.0) g/dL 08/17/16 08/17/16 08/17/16 Range/Units 11:29 16:23 21:03 WBC (3.8-10.6) k/uL RBC (4.30-5.90) m/uL Hgb (13.0-17.5) gm/dL MCV (80.0-100.0) fL MCHC (31.0-37.0) g/dL Plt Count (150-450) k/uL PT (9.0-12.0) sec INR (<1.1) Potassium (3.5-5.1) mmol/L Carbon Dioxide (22-30) mmol/L BUN (9-20) mg/dL Creatinine (0.66-1.25) mg/dL POC Glucose (mg/dL) 150 H 194 H 138 H (75-99) mg/dL Albumin (3.5-5.0) g/dL Assessment and Plan (1) Open wound of both legs with complication Status: Acute (2) Cellulitis of left lower extremity Status: Acute (3) Cellulitis of right leg Status: Acute (4) Illiterate Status: Acute (5) Smoking Status: Acute Plan: Continue current regimen antibiotic treatment Time with Patient: Less than 30
[2016-08-18] MEDS: VANCOMYCIN 2,000 MG in SODIUM CHLORIDE 0.9% 500 ML IVPB SCH (00:45)
[2016-08-18] MEDS: ACETAMINOPHEN TAB 325 MG TAB PO PRN (00:47)
[2016-08-18] MEDS: SODIUM CHLORIDE 0.9% 1,000 ML IV SCH ×2 (01:53→15:44)
[2016-08-18 08:16] LABS: Prothrombin Time 49.2 sec (9.0-12.0)
[2016-08-18 08:19] LABS: CH 29.9; CHCM 30.3; HCT 40.6 % (39.0-53.0); HDW 3.32; HGB 12.1 gm/dL (13.0-17.5); Hypochromasia Marked; MCH 29.7 pg (25.0-35.0); MCHC 29.8 g/dL (31.0-37.0); MCV 99.5 fL (80.0-100.0); Macrocytosis Slight; Mean Platelet Volume 7.5; RBC 4.08 m/uL (4.30-5.90); RDW 15.4 % (11.5-15.5); WBC 19.6 k/uL (3.8-10.6)
[2016-08-18 08:24] LABS: Calcium 8.5 mg/dL (8.4-10.2); Potassium 4.9 mmol/L (3.5-5.1); Total Bilirubin 0.7 mg/dL (0.2-1.3); Total Protein 6.3 g/dL (6.3-8.2)
[2016-08-18 08:26] LABS: INR 4.9 (<1.1)
[2016-08-18] MEDS: GABAPENTIN 300 MG CAP PO SCH ×2 (08:29→20:48)
[2016-08-18] MEDS: PANTOPRAZOLE 40 MG TABLET PO SCH (08:29)
[2016-08-18] MEDS: TAMSULOSIN 0.4 MG CAP.ER.24H PO SCH (08:29)
[2016-08-18] MEDS: METOPROLOL TARTRATE 50 MG TAB PO SCH ×2 (08:29→20:48)
[2016-08-18] MEDS: NIACIN TR 500 MG CAPSULE.ER PO SCH (08:29)
[2016-08-18] MEDS: FENOFIBRATE 160 MG TAB PO SCH (08:30)
[2016-08-18] MEDS: cefTRIAXone 2,000 MG in SODIUM CHLORIDE 0.9% 100 ML IVPB SCH (08:30)
[2016-08-18 09:11] LABS: Glucose,Whole Blood 85 mg/dL (75-99)
[2016-08-18 11:09] LABS: Glucose,Whole Blood 75 mg/dL (75-99)
--- NOTE | 2016-08-18 12:54 | P.PN ---
Subjective Principal diagnosis: Continuing care. This is a continue prednisone 61-year-old white male essentially admitted for sepsis and lower 70s cellulitis which has been recurrent. He is somewhat concerned that he cannot obtain a appropriate "cured." I Spent a long time discussing with him that his personal hygiene needs to be stellar for this to probably occur. Mental status is improved. Appreciate infectious disease input. Objective - Vital Signs Vital signs: Vital Signs Temp 98.5 F 08/18/16 07:00 Pulse 129 H 08/18/16 08:00 Resp 18 08/18/16 08:00 BP 117/71 08/18/16 07:00 Pulse Ox 97 08/18/16 07:00 Intake & Output 08/17/16 08/18/16 08/18/16 18:59 06:59 18:59 Intake Total 236 465 Balance 236 465 Weight 155.5 kg 155.5 kg 155.5 kg Intake: Intake, IV Titration 105 Amount Sodium Chloride 0.9% 1, 10 000 ml @ 75 mls/hr IV . [id number] [facility] Rx#:[id number] Vancomycin 2,000 mg In 95 Sodium Chloride 0.9% 500 ml @ 167 mls/hr IVPB Q16H [facility] Rx#:[id number] Oral 236 360 Other: Voiding Method Bedside Commode Urinal Urinal # Voids 3 - Constitutional General appearance: Present: obese - EENT Eyes: Absent: abnormal pupil - Neck Neck: Absent: lymphadenopathy - Respiratory Respiratory: bilateral: CTA - Cardiovascular Rhythm: irregularly irregular Heart sounds: normal: S1, S2 - Integumentary Integumentary Comment(s): Bilateral m he cellulitis with foot ulcer noted. - Musculoskeletal Musculoskeletal: Present: generalized weakness - Psychiatric Psychiatric: Present: A&O x's 3 - Labs CBC & Chem 7: 08/18/16 07:08 08/18/16 07:08 Labs: Abnormal Lab Results - Last 24 Hours (Table) 08/17/16 08/17/16 08/17/16 Range/Units 16:23 21:03 23:00 WBC (3.8-10.6) k/uL RBC (4.30-5.90) m/uL Hgb (13.0-17.5) gm/dL MCHC (31.0-37.0) g/dL Plt Count (150-450) k/uL PT (9.0-12.0) sec BUN (9-20) mg/dL Creatinine (0.66-1.25) mg/dL Glucose (74-99) mg/dL POC Glucose (mg/dL) 194 H 138 H (75-99) mg/dL Albumin (3.5-5.0) g/dL Vancomycin Trough 31.1 H* ug/mL 08/18/16 08/18/16 08/18/16 Range/Units 07:08 07:08 07:08 WBC 19.6 H (3.8-10.6) k/uL RBC 4.08 L (4.30-5.90) m/uL Hgb 12.1 L (13.0-17.5) gm/dL MCHC 29.8 L (31.0-37.0) g/dL Plt Count 555 H (150-450) k/uL PT 49.2 H (9.0-12.0) sec BUN 38 H (9-20) mg/dL Creatinine 1.75 H (0.66-1.25) mg/dL Glucose 41 L* (74-99) mg/dL POC Glucose (mg/dL) (75-99) mg/dL Albumin 2.8 L (3.5-5.0) g/dL Vancomycin Trough ug/mL Assessment and Plan (1) Open wound of both legs with complication Status: Acute (2) Cellulitis of left lower extremity Status: Acute (3) Cellulitis of right leg Status: Acute (4) Illiterate Status: Acute (5) Smoking Status: Acute Plan: Cellulitis. Diabetes-fairly well controlled. Obesity. Nicotine dependence. Again, prognosis guarded secondary to his multiple comorbidities. Discharge planning for possible ECF/rehabilitation placement. Order CBC and CMP in a.m. Time with Patient: Less than 30
[2016-08-18] MEDS: MORPHINE SULFATE 4 MG/ML SYRINGE IV PRN (14:42)
[2016-08-18 17:23] LABS: Glucose,Whole Blood 59 mg/dL (75-99)
[2016-08-18 17:39] LABS: Glucose,Whole Blood 89 mg/dL (75-99)
[2016-08-18 20:10] LABS: Glucose,Whole Blood 127 mg/dL (75-99)
[2016-08-18] MEDS: INSULIN GLARGINE 100 UNIT/ML 10 ML VIAL SQ SCH (20:45)
[2016-08-18] MEDS: FINASTERIDE 5 MG TAB PO SCH (20:48)
[2016-08-18] MEDS: COLLAGENASE 250 UNIT/GM OINTMENT 30 GM TUBE TOPICAL SCH (20:49)
--- NOTE | 2016-08-18 22:34 | P.PN ---
Subjective Principal diagnosis: fever cellulitis 61-year-old male with a long-standing history of diabetes mellitus type 2 poorly controlled as well as coronary artery disease congestive heart failure and chronic lower extremity edema. He was recently hospitalized without evidence of an infection to his left leg and heel. He was seen by vascular surgery has been following the wound center. The patient has been on antibiotic therapy with ciprofloxacin. For the isolated pathogens. The patient relates in the days before coming to hospital he started to feel ill. Increasing weakness. Increasing swelling and redness to the leg. An increasing over the left heel. His was trying to get him to come to the hospital for days before he finally came because he became so weak that he could no longer object. Upon arrival to the emergency center temperature 102.2 was noted. He was also having difficulty with worsening arrhythmia with his atrial fibrillation having a rapid ventricular response. He has been seen by cardiology. And there is been improvement of his uncontrolled rhythm. He still feels poorly. He's had fever which is feeling slightly better at this time still has chills. Is concerned about the ongoing ulceration to his left heel. He relates that he has not been offloading it. He can't wear any shoes causes his legs are so swollen. Spends his time in a lazy- boy recliner when he is at home. states he feels better today denies new discomforts improved today, awake and interactive less discomfort Objective - Vital Signs Vital signs: Vital Signs Temp 97.6 F 08/18/16 22:19 Pulse 117 H 08/18/16 22:19 Resp 20 08/18/16 22:19 BP 111/73 08/18/16 22:19 Pulse Ox 96 08/18/16 22:19 Intake & Output 08/18/16 08/18/16 08/19/16 06:59 18:59 06:59 Intake Total 465 1365 50 Balance 465 1365 50 Weight 155.5 kg 155.5 kg Intake: Intake, IV Titration 105 1125 Amount Sodium Chloride 0.9% 1, 10 525 000 ml @ 75 mls/hr IV . [id number] [facility] Rx#:[id number] Vancomycin 2,000 mg In 95 500 Sodium Chloride 0.9% 500 ml @ 167 mls/hr IVPB Q16H [facility] Rx#:[id number] cefTRIAXone 2,000 mg In 100 Sodium Chloride 0.9% 100 ml @ 100 mls/hr IVPB Q24HR [facility] Rx#:[id number] Oral 360 240 50 Other: Voiding Method Urinal Urinal # Voids 3 4 - Exam 61 year-old male who suffers from obesity. Seems to be modestly uncomfortable at this time. Of note upon entry he has his meal in front of him. He struggling to figure out where his silver is at although it is wrapped in a napkin on his tray. Does not appear to have a new acute visual change. HEENT: Anicteric conjunctiva are pink and moist nasal mucosa grossly intact without significant lesions, there is no thrush. Dentition is warm for age. Neck: The neck is supple without significant lymphadenopathy or thyromegaly. Lungs: Symmetrical air entry is noted with evidence of extra wheezes that are scattered. No julian bronchial sounds were noted. No egophony or dullness. Heart: Irregular with an audible S1 and S2, no S3 soft S4, no new murmur click or rub. Abdomen: Obese, Positive bowel sounds soft and nontender without palpable masses or organomegaly. There was no guarding or rebound. Evidence of the prior abdominal surgeries noted. At the most superior aspect of the surgical incision is evidence of some hyper-granulation tissue. At the base of the hyperventilation tissue is exposed mesh. Extremities: There is bilateral lower extremity edema. There some erythema to both lower extremities. Much more prominent on the right lower extremity from the knee distally. There is evidence of the significant ulceration to the heel that measures at 7.1 x 5.2 x 0.3 cm. Neuro: Awake alert oriented appears that he has been quite sleepy. There are no acute new gross focal sensory motor deficits. Has distinct neuropathy bilateral lower extremity knee distal - Labs CBC & Chem 7: 08/18/16 07:08 08/18/16 07:08 Labs: Abnormal Lab Results - Last 24 Hours (Table) 08/17/16 08/18/16 08/18/16 Range/Units 23:00 07:08 07:08 WBC (3.8-10.6) k/uL RBC (4.30-5.90) m/uL Hgb (13.0-17.5) gm/dL MCHC (31.0-37.0) g/dL Plt Count (150-450) k/uL PT 49.2 H (9.0-12.0) sec BUN 38 H (9-20) mg/dL Creatinine 1.75 H (0.66-1.25) mg/dL Glucose 41 L* (74-99) mg/dL POC Glucose (mg/dL) (75-99) mg/dL Albumin 2.8 L (3.5-5.0) g/dL Vancomycin Trough 31.1 H* ug/mL 08/18/16 08/18/16 08/18/16 Range/Units 07:08 17:20 20:08 WBC 19.6 H (3.8-10.6) k/uL RBC 4.08 L (4.30-5.90) m/uL Hgb 12.1 L (13.0-17.5) gm/dL MCHC 29.8 L (31.0-37.0) g/dL Plt Count 555 H (150-450) k/uL PT (9.0-12.0) sec BUN (9-20) mg/dL Creatinine (0.66-1.25) mg/dL Glucose (74-99) mg/dL POC Glucose (mg/dL) 59 L 127 H (75-99) mg/dL Albumin (3.5-5.0) g/dL Vancomycin Trough ug/mL Laboratory Results WBC 19.6 k/uL (3.8-10.6) H 08/18/16 07:08 RBC 4.08 m/uL (4.30-5.90) L 08/18/16 07:08 Hgb 12.1 gm/dL (13.0-17.5) L 08/18/16 07:08 Hct 40.6 % (39.0-53.0) 08/18/16 07:08 MCV 99.5 fL (80.0-100.0) 08/18/16 07:08 MCH 29.7 pg (25.0-35.0) 08/18/16 07:08 MCHC 29.8 g/dL (31.0-37.0) L 08/18/16 07:08 RDW 15.4 % (11.5-15.5) 08/18/16 07:08 Plt Count 555 k/uL (150-450) H 08/18/16 07:08 Neutrophils % 90 % 08/15/16 00:40 Lymphocytes % 3 % 08/15/16 00:40 Monocytes % 4 % 08/15/16 00:40 Eosinophils % 0 % 08/15/16 00:40 Basophils % 0 % 08/15/16 00:40 Neutrophils # 17.3 k/uL (1.3-7.7) H 08/15/16 00:40 Lymphocytes # 0.7 k/uL (1.0-4.8) L 08/15/16 00:40 Monocytes # 0.8 k/uL (0-1.0) 08/15/16 00:40 Eosinophils # 0.0 k/uL (0-0.7) 08/15/16 00:40 Basophils # 0.1 k/uL (0-0.2) 08/15/16 00:40 Hypochromasia Marked 08/18/16 07:08 Macrocytosis Slight 08/18/16 07:08 PT 49.2 sec (9.0-12.0) H 08/18/16 07:08 INR 4.9 (<1.1) 08/18/16 07:08 APTT 33.2 sec (22.0-30.0) H 08/15/16 00:40 Sodium 137 mmol/L (137-145) 08/18/16 07:08 Potassium 4.9 mmol/L (3.5-5.1) 08/18/16 07:08 Chloride 104 mmol/L (98-107) 08/18/16 07:08 Carbon Dioxide 23 mmol/L (22-30) 08/18/16 07:08 Anion Gap 10 mmol/L 08/18/16 07:08 BUN 38 mg/dL (9-20) H 08/18/16 07:08 Creatinine 1.75 mg/dL (0.66-1.25) H 08/18/16 07:08 Est GFR (MDRD) Af Amer 48 (>60 ml/min/1.73 sqM) 08/18/16 07:08 Est GFR (MDRD) Non-Af 40 (>60 ml/min/1.73 sqM) 08/18/16 07:08 Glucose 41 mg/dL (74-99) L* 08/18/16 07:08 POC Glucose (mg/dL) 127 mg/dL (75-99) H 08/18/16 20:08 POC Glu Electrical System Specialist ID Merna Wise 08/18/16 20:08 Plasma Lactic Acid Cristiano 1.0 mmol/L (0.7-2.0) 08/15/16 08:00 Calcium 8.5 mg/dL (8.4-10.2) 08/18/16 07:08 Total Bilirubin 0.7 mg/dL (0.2-1.3) 08/18/16 07:08 AST 38 U/L (17-59) 08/18/16 07:08 ALT 25 U/L (21-72) 08/18/16 07:08 Alkaline Phosphatase 90 U/L (38-126) 08/18/16 07:08 Total Creatine Kinase 209 U/L (55-170) H 08/15/16 11:54 CK-MB (CK-2) 2.9 ng/mL (0.0-2.4) H* 08/15/16 11:54 CK-MB (CK-2) Rel Index 1.4 08/15/16 11:54 Troponin I 0.201 ng/mL (0.000-0.034) H* 08/15/16 11:54 Total Protein 6.3 g/dL (6.3-8.2) 08/18/16 07:08 Albumin 2.8 g/dL (3.5-5.0) L 08/18/16 07:08 Urine Color Dark Yellow 08/15/16 00:40 Urine Appearance Clear (Clear) 08/15/16 00:40 Urine pH 5.5 (5.0-8.0) 08/15/16 00:40 Ur Specific [place] 1.020 (1.001-1.035) 08/15/16 00:40 Urine Protein 2+ (Negative) H 08/15/16 00:40 Urine Glucose (UA) Negative (Negative) 08/15/16 00:40 Urine Ketones Trace (Negative) H 08/15/16 00:40 Urine Blood Small (Negative) H 08/15/16 00:40 Urine Nitrite Negative (Negative) 08/15/16 00:40 Urine Bilirubin 1+ (Negative) H 08/15/16 00:40 Urine Urobilinogen 6.0 mg/dL (<2.0) 08/15/16 00:40 Ur Leukocyte Esterase Moderate (Negative) H 08/15/16 00:40 Urine RBC 13 /hpf (0-5) H 08/15/16 00:40 Urine WBC 5 /hpf (0-5) 08/15/16 00:40 Urine WBC Clumps Rare /hpf (None) H 08/15/16 00:40 Ur Squamous Epith Cells 5 /hpf (0-4) H 08/15/16 00:40 Urine Bacteria Rare /hpf (None) H 08/15/16 00:40 Hyaline Casts 8 /lpf (0-2) H 08/15/16 00:40 Urine Mucus Rare /hpf (None) H 08/15/16 00:40 Vancomycin Trough 31.1 ug/mL H* 08/17/16 23:00 Microbiology 08/15/16 00:40 Blood Blood Culture - Preliminary No Growth after 72 hours 08/15/16 00:40 Urine,Voided Urine Culture - Final Assessment and Plan (1) Sepsis Narrative/Plan: 61-year-old male who has a history of multiple medical troubles that includes diabetes obesity coronary artery disease and atrial fibrillation. Presents to Hospital feeling very poorly. He had worsening cardiac dysrhythmia his atrial fibrillation and developed a rapid ventricular response. Became weak and ill and constantly remitted to coming to hospital. He is having difficulty with worsening ulceration to his heel. It was noted during his last hospital stay. And is to be getting ongoing care at the wound healing Center. During the last stay it was a goal to have him go to extended care however he refused. And then with therapy he was proving that he was able to get up and move a bit. Despite this he has not been doing well at home. He's been getting worse. He now has marked worsening infection to the right leg. Prior culture shows evidence of MRSA, klebsiella and Proteus infection. Constantly vancomycin and ceftriaxone will be given for now until we have further data. Avoid Levaquin use since he is on Coumadin. Patient is chronic medical noncompliance. He has hemoglobin A1c was down to 6.1 Patient has been having difficulties with offloading the heel. A brown air boot is been requested to get up and off the bed at this time. We'll need to have a specialty boot designed the time of his discharge to take weight off of the heel. He will follow the wound healing Center. He' will continue follow- up with the vascular surgeon. Local wound care with Santyl will be utilized given large amount of necrotic material, may need surgical debridement Pain control is improved Atrial fibrillation is controlled. Continues to have leukocytosis but improving with current wound care and antibiotic therapy Creatinine is increased. We'll discontinue ketorolac. Vancomycin will be placed on hold. Follow-up cultures obtained. If creatinine continues to increase we'll alter therapy to Teflaro for coverage of MRSA and prior gram negatives with less toxicity. 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
[2016-08-19 02:21] LABS: Glucose,Whole Blood 88 mg/dL (75-99)
[2016-08-19] MEDS ORDERED: VANCOMYCIN 2,000 MG in SODIUM CHLORIDE 0.9% 500 ML IVPB SCH (06:00)
[2016-08-19 07:43] LABS: Glucose,Whole Blood 99 mg/dL (75-99)
--- NOTE | 2016-08-19 08:17 | P.PN ---
Subjective Principal diagnosis: Continuing care This is a continue progress on a 61-year-old white male essentially admitted for chronic and recurrent cellulitis of the lower extremities but had diabetic foot ulcer. He has an underlying history of well-controlled diabetes with atrial fibrillation. He wishes to try to leave the hospital today. However, I suspect that the best scenario will be for him ECF. He is somewhat agreeable to this. He states he has difficulty eating food at the hospital. No significant chest pain stated. No voiding difficulties otherwise noted. Objective - Vital Signs Vital signs: Vital Signs Temp 97.5 F L 08/19/16 07:00 Pulse 99 08/19/16 07:00 Resp 20 08/19/16 07:00 BP 110/57 08/19/16 07:00 Pulse Ox 93 L 08/19/16 07:00 Intake & Output 08/18/16 08/19/16 08/19/16 18:59 06:59 18:59 Intake Total 1365 290 Balance 1365 290 Weight 155.5 kg Intake: Intake, IV Titration 1125 Amount Sodium Chloride 0.9% 1, 525 000 ml @ 75 mls/hr IV . [id number] [facility] Rx#:[id number] Vancomycin 2,000 mg In 500 Sodium Chloride 0.9% 500 ml @ 167 mls/hr IVPB Q16H [facility] Rx#:[id number] cefTRIAXone 2,000 mg In 100 Sodium Chloride 0.9% 100 ml @ 100 mls/hr IVPB Q24HR [facility] Rx#:[id number] Oral 240 290 Other: Voiding Method Urinal Urinal # Voids 4 3 - Constitutional General appearance: Present: obese - EENT Eyes: Absent: abnormal pupil - Respiratory Respiratory: bilateral: CTA - Cardiovascular Rhythm: irregularly irregular Heart sounds: normal: S1, S2 - Gastrointestinal General gastrointestinal: Present: soft. Absent: tenderness - Integumentary Integumentary: Present: cellulitis - Neurologic Neurologic: Absent: focal deficits - Musculoskeletal Musculoskeletal: Present: generalized weakness - Labs CBC & Chem 7: 08/18/16 07:08 08/18/16 07:08 Labs: Abnormal Lab Results - Last 24 Hours (Table) 08/18/16 08/18/16 08/18/16 Range/Units 07:08 07:08 07:08 WBC 19.6 H (3.8-10.6) k/uL RBC 4.08 L (4.30-5.90) m/uL Hgb 12.1 L (13.0-17.5) gm/dL MCHC 29.8 L (31.0-37.0) g/dL Plt Count 555 H (150-450) k/uL PT 49.2 H (9.0-12.0) sec BUN 38 H (9-20) mg/dL Creatinine 1.75 H (0.66-1.25) mg/dL Glucose 41 L* (74-99) mg/dL POC Glucose (mg/dL) (75-99) mg/dL Albumin 2.8 L (3.5-5.0) g/dL 08/18/16 08/18/16 Range/Units 17:20 20:08 WBC (3.8-10.6) k/uL RBC (4.30-5.90) m/uL Hgb (13.0-17.5) gm/dL MCHC (31.0-37.0) g/dL Plt Count (150-450) k/uL PT (9.0-12.0) sec BUN (9-20) mg/dL Creatinine (0.66-1.25) mg/dL Glucose (74-99) mg/dL POC Glucose (mg/dL) 59 L 127 H (75-99) mg/dL Albumin (3.5-5.0) g/dL Assessment and Plan (1) Open wound of both legs with complication Status: Acute (2) Cellulitis of left lower extremity Status: Acute (3) Cellulitis of right leg Status: Acute (4) Illiterate Status: Acute (5) Smoking Status: Acute Plan: The patient has elevated white blood cell count as of yesterday. Antibiotic adjustment is possible via infectious disease with Teflaro. Recheck CBC and CMP in a.m. Discharge planning. I suspect he would benefit from ECF placement for appropriate wound control as he had difficulty with this at his last discharge area Prognosis is guarded secondary to his multiple comorbidities. The patient has an element of persistent chronic atrial fibrillation and sepsis which is now slowly resolving. Time with Patient: Greater than 30
[2016-08-19 08:27] LABS: Calcium 8.7 mg/dL (8.4-10.2); Potassium 4.6 mmol/L (3.5-5.1)
[2016-08-19 08:34] LABS: Basophils # (A) 0.1 k/uL (0-0.2); Basophils % (A) 1 %; CHCM 30.3; Eosinophils # (A) 0.3 k/uL (0-0.7); Eosinophils % (A) 3 %; HCT 39.7 % (39.0-53.0); HDW 3.44; HGB 12.3 gm/dL (13.0-17.5); Hypochromasia Marked; Luc # (Auto) 0.45; Luc % (Auto) 4; Lymphocytes # (A) 1.3 k/uL (1.0-4.8); Lymphocytes % (A) 11 %; MCH 30.8 pg (25.0-35.0); MCHC 30.9 g/dL (31.0-37.0); MCV 99.6 fL (80.0-100.0); Macrocytosis Slight; Mean Platelet Volume 7.6; Monocytes # (A) 0.7 k/uL (0-1.0); Monocytes % (A) 5 %; Neutrophils # (A) 9.6 k/uL (1.3-7.7); Neutrophils % (A) 77 %; Poikilocytosis Slight; RBC 3.99 m/uL (4.30-5.90); RDW 15.3 % (11.5-15.5); WBC 12.4 k/uL (3.8-10.6); WBC (Perox) 11.27
[2016-08-19 08:47] LABS: Prothrombin Time 54.6 sec (9.0-12.0)
[2016-08-19 08:51] LABS: INR 5.4 (<1.1)
[2016-08-19] MEDS: FENOFIBRATE 160 MG TAB PO SCH (09:13)
[2016-08-19] MEDS: cefTRIAXone 2,000 MG in SODIUM CHLORIDE 0.9% 100 ML IVPB SCH (09:13)
[2016-08-19] MEDS: GABAPENTIN 300 MG CAP PO SCH ×2 (09:14→21:24)
[2016-08-19] MEDS: PANTOPRAZOLE 40 MG TABLET PO SCH (09:14)
[2016-08-19] MEDS: NIACIN TR 500 MG CAPSULE.ER PO SCH (09:15)
[2016-08-19] MEDS: SODIUM CHLORIDE 0.9% 1,000 ML IV SCH ×2 (09:15→18:24)
[2016-08-19] MEDS: TAMSULOSIN 0.4 MG CAP.ER.24H PO SCH (09:15)
[2016-08-19] MEDS: METOPROLOL TARTRATE 50 MG TAB PO SCH ×2 (09:16→21:23)
[2016-08-19 10:45] LABS: Manual Review Performed
[2016-08-19 11:39] LABS: Glucose,Whole Blood 117 mg/dL (75-99)
[2016-08-19] MEDS: COLLAGENASE 250 UNIT/GM OINTMENT 30 GM TUBE TOPICAL SCH (11:42)
[2016-08-19] MEDS: MORPHINE SULFATE 4 MG/ML SYRINGE IV PRN ×2 (12:51→18:24)
[2016-08-19 14:43] LABS: Glucose,Whole Blood 110 mg/dL (75-99)
[2016-08-19 17:09] LABS: Glucose,Whole Blood 83 mg/dL (75-99)
[2016-08-19] MEDS ORDERED: LORazepam 0.5 MG TAB PO PRN (18:39)
[2016-08-19] MEDS ORDERED: PHYTONADIONE ORAL 5 MG/5 ML ORAL.SYRG PO STA (18:44)
[2016-08-19] MEDS: NICOTINE 21MG/24HR PATCH TRANSDERM SCH (19:53)
[2016-08-19 20:41] LABS: Glucose,Whole Blood 145 mg/dL (75-99)
[2016-08-19] MEDS: INSULIN GLARGINE 100 UNIT/ML 10 ML VIAL SQ SCH (21:23)
[2016-08-19] MEDS: FINASTERIDE 5 MG TAB PO SCH (21:24)
--- NOTE | 2016-08-19 23:42 | P.PN ---
Subjective Principal diagnosis: fever cellulitis 61-year-old male with a long-standing history of diabetes mellitus type 2 poorly controlled as well as coronary artery disease congestive heart failure and chronic lower extremity edema. He was recently hospitalized without evidence of an infection to his left leg and heel. He was seen by vascular surgery has been following the wound center. The patient has been on antibiotic therapy with ciprofloxacin. For the isolated pathogens. The patient relates in the days before coming to hospital he started to feel ill. Increasing weakness. Increasing swelling and redness to the leg. An increasing over the left heel. His was trying to get him to come to the hospital for days before he finally came because he became so weak that he could no longer object. Upon arrival to the emergency center temperature 102.2 was noted. He was also having difficulty with worsening arrhythmia with his atrial fibrillation having a rapid ventricular response. He has been seen by cardiology. And there is been improvement of his uncontrolled rhythm. He still feels poorly. He's had fever which is feeling slightly better at this time still has chills. Is concerned about the ongoing ulceration to his left heel. He relates that he has not been offloading it. He can't wear any shoes causes his legs are so swollen. Spends his time in a lazy- boy recliner when he is at home. states he feels better today denies new discomforts improved today, awake and interactive less discomfort Objective - Vital Signs Vital signs: Vital Signs Temp 97.6 F 08/19/16 23:00 Pulse 99 08/19/16 23:00 Resp 20 08/19/16 23:00 BP 113/69 08/19/16 23:00 Pulse Ox 91 L 08/19/16 23:00 Intake & Output 08/19/16 08/19/16 08/20/16 06:59 18:59 06:59 Intake Total 290 1200 Output Total 250 Balance 290 950 Weight 155.5 kg Intake: Oral 290 1200 Output: Urine 250 Other: Voiding Method Urinal Urinal # Voids 3 3 - Exam 61 year-old male who suffers from obesity. Seems to be modestly uncomfortable at this time. Of note upon entry he has his meal in front of him. He struggling to figure out where his silver is at although it is wrapped in a napkin on his tray. Does not appear to have a new acute visual change. HEENT: Anicteric conjunctiva are pink and moist nasal mucosa grossly intact without significant lesions, there is no thrush. Dentition is warm for age. Neck: The neck is supple without significant lymphadenopathy or thyromegaly. Lungs: Symmetrical air entry is noted with evidence of extra wheezes that are scattered. No julian bronchial sounds were noted. No egophony or dullness. Heart: Irregular with an audible S1 and S2, no S3 soft S4, no new murmur click or rub. Abdomen: Obese, Positive bowel sounds soft and nontender without palpable masses or organomegaly. There was no guarding or rebound. Evidence of the prior abdominal surgeries noted. At the most superior aspect of the surgical incision is evidence of some hyper-granulation tissue. At the base of the hyperventilation tissue is exposed mesh. Extremities: There is bilateral lower extremity edema. There some erythema to both lower extremities. Much more prominent on the right lower extremity from the knee distally. There is evidence of the significant ulceration to the heel that measures at 7.1 x 5.2 x 0.3 cm. Neuro: Awake alert oriented appears that he has been quite sleepy. There are no acute new gross focal sensory motor deficits. Has distinct neuropathy bilateral lower extremity knee distal - Labs CBC & Chem 7: 08/19/16 07:30 08/19/16 07:30 Labs: Abnormal Lab Results - Last 24 Hours (Table) 08/17/16 08/19/16 08/19/16 Range/Units 23:00 07:30 07:30 WBC (3.8-10.6) k/uL RBC (4.30-5.90) m/uL Hgb (13.0-17.5) gm/dL MCHC (31.0-37.0) g/dL Plt Count (150-450) k/uL Neutrophils # (1.3-7.7) k/uL PT 54.6 H (9.0-12.0) sec INR 5.4 H* (<1.1) BUN 38 H (9-20) mg/dL Creatinine 1.89 H (0.66-1.25) mg/dL POC Glucose (mg/dL) (75-99) mg/dL Vancomycin Trough 31.1 H* ug/mL 08/19/16 08/19/16 08/19/16 Range/Units 07:30 11:24 14:41 WBC 12.4 H (3.8-10.6) k/uL RBC 3.99 L (4.30-5.90) m/uL Hgb 12.3 L (13.0-17.5) gm/dL MCHC 30.9 L (31.0-37.0) g/dL Plt Count 465 H (150-450) k/uL Neutrophils # 9.6 H (1.3-7.7) k/uL PT (9.0-12.0) sec INR (<1.1) BUN (9-20) mg/dL Creatinine (0.66-1.25) mg/dL POC Glucose (mg/dL) 117 H 110 H (75-99) mg/dL Vancomycin Trough ug/mL 08/19/16 Range/Units 20:27 WBC (3.8-10.6) k/uL RBC (4.30-5.90) m/uL Hgb (13.0-17.5) gm/dL MCHC (31.0-37.0) g/dL Plt Count (150-450) k/uL Neutrophils # (1.3-7.7) k/uL PT (9.0-12.0) sec INR (<1.1) BUN (9-20) mg/dL Creatinine (0.66-1.25) mg/dL POC Glucose (mg/dL) 145 H (75-99) mg/dL Vancomycin Trough ug/mL Microbiology - Last 24 Hours (Table) 08/19/16 11:30 Wound Culture - Preliminary Heel - Right Laboratory Results WBC 12.4 k/uL (3.8-10.6) H 08/19/16 07:30 RBC 3.99 m/uL (4.30-5.90) L 08/19/16 07:30 Hgb 12.3 gm/dL (13.0-17.5) L 08/19/16 07:30 Hct 39.7 % (39.0-53.0) 08/19/16 07:30 MCV 99.6 fL (80.0-100.0) 08/19/16 07:30 MCH 30.8 pg (25.0-35.0) 08/19/16 07:30 MCHC 30.9 g/dL (31.0-37.0) L 08/19/16 07:30 RDW 15.3 % (11.5-15.5) 08/19/16 07:30 Plt Count 465 k/uL (150-450) H 08/19/16 07:30 Neutrophils % 77 % 08/19/16 07:30 Lymphocytes % 11 % 08/19/16 07:30 Monocytes % 5 % 08/19/16 07:30 Eosinophils % 3 % 08/19/16 07:30 Basophils % 1 % 08/19/16 07:30 Neutrophils # 9.6 k/uL (1.3-7.7) H 08/19/16 07:30 Lymphocytes # 1.3 k/uL (1.0-4.8) 08/19/16 07:30 Monocytes # 0.7 k/uL (0-1.0) 08/19/16 07:30 Eosinophils # 0.3 k/uL (0-0.7) 08/19/16 07:30 Basophils # 0.1 k/uL (0-0.2) 08/19/16 07:30 Manual Slide Review Performed 08/19/16 07:30 Hypochromasia Marked 08/19/16 07:30 Poikilocytosis Slight 08/19/16 07:30 Macrocytosis Slight 08/19/16 07:30 PT 54.6 sec (9.0-12.0) H 08/19/16 07:30 INR 5.4 (<1.1) H* 08/19/16 07:30 APTT 33.2 sec (22.0-30.0) H 08/15/16 00:40 Sodium 139 mmol/L (137-145) 08/19/16 07:30 Potassium 4.6 mmol/L (3.5-5.1) 08/19/16 07:30 Chloride 104 mmol/L (98-107) 08/19/16 07:30 Carbon Dioxide 24 mmol/L (22-30) 08/19/16 07:30 Anion Gap 11 mmol/L 08/19/16 07:30 BUN 38 mg/dL (9-20) H 08/19/16 07:30 Creatinine 1.89 mg/dL (0.66-1.25) H 08/19/16 07:30 Est GFR (MDRD) Af Amer 44 (>60 ml/min/1.73 sqM) 08/19/16 07:30 Est GFR (MDRD) Non-Af 36 (>60 ml/min/1.73 sqM) 08/19/16 07:30 Glucose 95 mg/dL (74-99) 08/19/16 07:30 POC Glucose (mg/dL) 145 mg/dL (75-99) H 08/19/16 20:27 POC Glu Fitness And Wellness Coordinator ID Merna Wise 08/19/16 20:27 Plasma Lactic Acid Cristiano 1.0 mmol/L (0.7-2.0) 08/15/16 08:00 Calcium 8.7 mg/dL (8.4-10.2) 08/19/16 07:30 Total Bilirubin 0.7 mg/dL (0.2-1.3) 08/18/16 07:08 AST 38 U/L (17-59) 08/18/16 07:08 ALT 25 U/L (21-72) 08/18/16 07:08 Alkaline Phosphatase 90 U/L (38-126) 08/18/16 07:08 Total Creatine Kinase 209 U/L (55-170) H 08/15/16 11:54 CK-MB (CK-2) 2.9 ng/mL (0.0-2.4) H* 08/15/16 11:54 CK-MB (CK-2) Rel Index 1.4 08/15/16 11:54 Troponin I 0.201 ng/mL (0.000-0.034) H* 08/15/16 11:54 Total Protein 6.3 g/dL (6.3-8.2) 08/18/16 07:08 Albumin 2.8 g/dL (3.5-5.0) L 08/18/16 07:08 Urine Color Dark Yellow 08/15/16 00:40 Urine Appearance Clear (Clear) 08/15/16 00:40 Urine pH 5.5 (5.0-8.0) 08/15/16 00:40 Ur Specific [place] 1.020 (1.001-1.035) 08/15/16 00:40 Urine Protein 2+ (Negative) H 08/15/16 00:40 Urine Glucose (UA) Negative (Negative) 08/15/16 00:40 Urine Ketones Trace (Negative) H 08/15/16 00:40 Urine Blood Small (Negative) H 08/15/16 00:40 Urine Nitrite Negative (Negative) 08/15/16 00:40 Urine Bilirubin 1+ (Negative) H 08/15/16 00:40 Urine Urobilinogen 6.0 mg/dL (<2.0) 08/15/16 00:40 Ur Leukocyte Esterase Moderate (Negative) H 08/15/16 00:40 Urine RBC 13 /hpf (0-5) H 08/15/16 00:40 Urine WBC 5 /hpf (0-5) 08/15/16 00:40 Urine WBC Clumps Rare /hpf (None) H 08/15/16 00:40 Ur Squamous Epith Cells 5 /hpf (0-4) H 08/15/16 00:40 Urine Bacteria Rare /hpf (None) H 08/15/16 00:40 Hyaline Casts 8 /lpf (0-2) H 08/15/16 00:40 Urine Mucus Rare /hpf (None) H 08/15/16 00:40 Vancomycin Trough 31.1 ug/mL H* 08/17/16 23:00 Microbiology 08/19/16 11:30 Heel - Right Wound Culture - Preliminary 08/15/16 00:40 Blood Blood Culture - Preliminary No Growth after 96 hours 08/15/16 00:40 Urine,Voided Urine Culture - Final Assessment and Plan (1) Sepsis Narrative/Plan: 61-year-old male who has a history of multiple medical troubles that includes diabetes obesity coronary artery disease and atrial fibrillation. Presents to Hospital feeling very poorly. He had worsening cardiac dysrhythmia his atrial fibrillation and developed a rapid ventricular response. Became weak and ill and constantly remitted to coming to hospital. He is having difficulty with worsening ulceration to his heel. It was noted during his last hospital stay. And is to be getting ongoing care at the wound healing Center. During the last stay it was a goal to have him go to extended care however he refused. And then with therapy he was proving that he was able to get up and move a bit. Despite this he has not been doing well at home. He's been getting worse. He now has marked worsening infection to the right leg. Prior culture shows evidence of MRSA, klebsiella and Proteus infection. Constantly vancomycin and ceftriaxone were given for now until we have further data. Avoid Levaquin use since he is on Coumadin. Patient is chronic medical noncompliance. He has hemoglobin A1c was down to 6.1 Patient has been having difficulties with offloading the heel. A brown air boot is been requested to get up and off the bed at this time. We'll need to have a specialty boot designed the time of his discharge to take weight off of the heel. He will follow the wound healing Center. He' will continue follow- up with the vascular surgeon. Local wound care with Santyl will be utilized given large amount of necrotic material, may need surgical debridement Pain control is improved Atrial fibrillation is controlled. Continues to have leukocytosis but improving with current wound care and antibiotic therapy Creatinine is increased. We'll discontinue ketorolac. Vancomycin will be placed on hold. Follow-up cultures obtained. If creatinine continues to increase we'll alter therapy to Teflaro for coverage of MRSA and prior gram negatives with less toxicity. 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
[2016-08-20 02:27] LABS: Glucose,Whole Blood 69 mg/dL (75-99)
[2016-08-20 02:58] LABS: Glucose,Whole Blood 76 mg/dL (75-99)
[2016-08-20 03:24] LABS: CH 30.2; CHCM 30.8; HDW 3.44; HGB 12.7 gm/dL (13.0-17.5); Hypochromasia Marked; MCH 30.5 pg (25.0-35.0); MCHC 30.9 g/dL (31.0-37.0); MCV 98.7 fL (80.0-100.0); Macrocytosis Slight; Poikilocytosis Slight; RBC 4.16 m/uL (4.30-5.90); RDW 15.3 % (11.5-15.5); WBC 18.6 k/uL (3.8-10.6)
[2016-08-20 03:29] LABS: INR 3.1 (<1.1); Prothrombin Time 29.7 sec (9.0-12.0)
[2016-08-20 03:40] LABS: Calcium 8.9 mg/dL (8.4-10.2); Potassium 5.1 mmol/L (3.5-5.1); Total Bilirubin 0.8 mg/dL (0.2-1.3); Total Protein 6.8 g/dL (6.3-8.2)
[2016-08-20] MEDS ORDERED: LIDOCAINE URO-JET JELLY 2% 5 ML KIT URETHRAL ONE (03:59)
--- NOTE | 2016-08-20 03:59 | CT ---
EXAM: CT Head Without Intravenous Contrast CLINICAL HISTORY: Reason: confusion TECHNIQUE: Axial computed tomography images of the head/brain without intravenous contrast. CTDI is 60 mGy and DLP is 2200 mGy-cm This CT exam was performed using one or more of the following dose reduction techniques: automated exposure control, adjustment of the mA and/or kV according to patient size, and/or use of iterative reconstruction technique. COMPARISON: 01/06/2016. FINDINGS: Brain: Mild volume loss and white matter small vessel disease. No hemorrhage. No edema. Ventricles: Unremarkable. No ventriculomegaly. Bones/joints: Unremarkable. No acute fracture. Soft tissues: Unremarkable. Sinuses: Mild paranasal sinus mucosal thickening. Right maxillary sinus polyps or mucous retention cysts. Mastoid air cells: Unremarkable as visualized. No mastoid effusion. IMPRESSION: 1. No evidence of acute intracranial abnormality. 2. Involutional changes. [employer] 08/20/16 04:05 Call Doctor Regarding Above results, called Dr. Franks on 08/20 04:05 (-04:00)
[2016-08-20] MEDS ORDERED: FUROSEMIDE 10 MG/ML 4 ML VIAL IV STA (04:53)
[2016-08-20 05:27] LABS: Amorphous Sediment,Urine Rare /hpf; Appearance,Urine Cloudy (Clear); Bilirubin,Urine Negative (Negative); Glucose,Urine (UA) Negative (Negative); Ketones,Urine Negative (Negative); Leukocyte Esterase,Urine Large (Negative); Mucus,Urine Rare /hpf; Nitrite,Urine Negative (Negative); PH, Urine 5.5 (5.0-8.0); Particle Count 13974; Protein,Urine Trace (Negative); RBC,Urine 10 /hpf (0-5); Specific Gravity,Urine 1.014 (1.001-1.035); Squamous Epithelial Cell,Urine 3 /hpf (0-4); UA Billing (MACRO vs. MICRO) MICRO; Urobilinogen,Urine <2.0 mg/dL (<2.0); WBC,Urine 2 /hpf (0-5)
[2016-08-20] MEDS: DILTIAZEM 125 MG in SODIUM CHLORIDE 0.9% 100 ML IV SCH (05:29)
[2016-08-20] MEDS ORDERED: LORazepam 2 MG/ML SYRINGE IV PRN (05:55)
[2016-08-20] MEDS ORDERED: LORazepam 2 MG/ML SYRINGE ONE (06:06)
[2016-08-20] MEDS ORDERED: Potassium Replacement Protocol 1 EACH MISC MISCELLANE PRN (08:13)
[2016-08-20] MEDS ORDERED: Magnesium Replacement Protocol 1 EACH MISC MISCELLANE PRN (08:13)
[2016-08-20] MEDS ORDERED: ALBUTEROL NEBULIZED 2.5 MG/3 ML INHALATION PRN (08:15)
[2016-08-20] MEDS: SODIUM CHLORIDE 0.9% 1,000 ML IV SCH ×3 (08:59→11:16)
[2016-08-20] MEDS ORDERED: FUROSEMIDE 10 MG/ML 4 ML VIAL IV SCH (09:00)
--- NOTE | 2016-08-20 10:16 | XR ---
EXAMINATION TYPE: XR chest 1V portable DATE OF EXAM: 08/20/2016 10:11 AM HISTORY: resp failure. REFERENCE: Previous study dated 08/15/2016. FINDINGS: The heart is enlarged. There is vascular congestion and pulmonary edema. No definite pleura l fluid is seen. IMPRESSION: FINDINGS CONSISTENT WITH CONGESTIVE HEART FAILURE.
[2016-08-20] MEDS: GABAPENTIN 300 MG CAP PO SCH (11:09)
[2016-08-20] MEDS: METOPROLOL TARTRATE 50 MG TAB PO SCH (11:09)
[2016-08-20] MEDS: PANTOPRAZOLE 40 MG TABLET PO SCH (11:09)
[2016-08-20] MEDS: NIACIN TR 500 MG CAPSULE.ER PO SCH (11:09)
[2016-08-20] MEDS: FENOFIBRATE 160 MG TAB PO SCH (11:09)
[2016-08-20] MEDS: TAMSULOSIN 0.4 MG CAP.ER.24H PO SCH (11:10)
[2016-08-20] MEDS: MAGNESIUM SULFATE-D5W PMX 1 GM in DEXTROSE/WATER 1 100ML.BAG IVPB SCH ×2 (11:16→12:42)
[2016-08-20 12:49] LABS: Glucose,Whole Blood 58 mg/dL (75-99)
[2016-08-20 12:49] LABS: Glucose,Whole Blood 54 mg/dL (75-99)
[2016-08-20] MEDS: DEXTROSE 50%-WATER 50 ML SYRINGE IVP ONE ×2 (12:54→13:00)
[2016-08-20 13:13] LABS: Glucose,Whole Blood 102 mg/dL (75-99)
[2016-08-20] MEDS: MORPHINE SULFATE 4 MG/ML SYRINGE IV PRN ×2 (14:08→21:53)
[2016-08-20] MEDS: cefTRIAXone 2,000 MG in SODIUM CHLORIDE 0.9% 100 ML IVPB SCH (14:16)
[2016-08-20] MEDS: NICOTINE 21MG/24HR PATCH TRANSDERM SCH (14:17)
--- NOTE | 2016-08-20 14:30 | P.CNPUL ---
History of Present Illness Consult date: 08/20/16 Reason for consult: dyspnea, hypoxemia, abnormal CXR/CT Chief complaint: Hypoxemia History of present illness: This is a 61-year-old male with a complex medical history who was transferred to the intensive care unit last evening. The patient has been admitted since . The patient was admitted for cellulitis and diabetic ulcer. He was also found to have sepsis. Apparently overnight became more short of breath and combative. The patient was found to be in atrial fibrillation with rapid ventricular response. The patient was placed on BiPAP and transferred to the intensive care unit. He was hemodynamically stable. The patient was placed on Cardizem drip per cardiology. Chest x-ray shows evidence of congestive heart failure. The patient has been afebrile. His is at bedside and states he has had multiple hospitalizations over the last few months. She states when he is at home he does not get out of the lazy boy chair. Review of Systems ROS unobtainable: due to mental status Past Medical History Past Medical History: Atrial Fibrillation, Diabetes Mellitus, Eye Disorder, Hearing Disorder / Deafness, Hyperlipidemia, Hypertension, Osteoarthritis (OA), Prostate Disorder, Sleep Apnea/CPAP/BIPAP, Vascular Disorder Additional Past Medical History / Comment(s): Pt fell 01/06/16 R humeral fracture. Other HX: NIDDM, irritable bowel syndrome, numerous wounds bilateral legs and feet and an abdominal wound after previous hernia surgery with mesh - has been tx in wound center and has had several debridements, currently being treated in wound center for bilateral lower leg ulcers, charcot Lfoot, hx of diabetic villareal grade 2 bilateral foot ulcers, abdominal wall ulceration with I&D, urinary calculus., BPH, bilateral hands and feet peripheral neuropathy, L eye astigmatism, edentulous. History of Any Multi-Drug Resistant Organisms: MRSA Date of last positivie culture/infection: 02/15/16 MDRO Source:: legs Past Surgical History: Bladder Surgery, Hernia Repair, Tonsillectomy Additional Past Surgical History / Comment(s): I and D abdominal wall ulcer s/p abdominal hernia repair with mesh-infected post op and mesh exposed, wound center tx for bilateral feet ulcers-healed and discharged 03/25/14, current wound center tx for bilateral lower leg ulcers, picc line insertion and removal , cystoscopy which was unsuccessful for removing bladder stone. Past Anesthesia/Blood Transfusion Reactions: No Reported Reaction Past Psychological History: Anxiety, Depression Additional Psychological History / Comment(s): Remains an ongoing daily tobacco smoker. Does have history of occasional alcohol use. Denies difficulty with alcohol use. Denies recreational drug use.He is on [facility].To begin travels. No animalexposures. Ambulates with cane. Not able to drive as of late Smoking Status: Current every day smoker Past Alcohol Use History: Occasional Additional Past Alcohol Use History / Comment(s): Pt states he started smoking in 1972 and is about a ppd smoker. Pt states he drinks every couple days- a couple whiskeys. Past Drug Use History: None Reported - Past Family History Brother(s) Family Medical History: Cancer Additional Family Medical History / Comment(s): Breast cancer Father Family Medical History: Diabetes Mellitus Additional Family Medical History / Comment(s): Father of a brain tumor in his early 80s Mother Family Medical History: No Reported History Additional Family Medical History / Comment(s): Still living. Medications and Allergies Home Medications Medication Instructions Recorded Confirmed Type Fenofibrate Nanocrystallized 145 mg PO DAILY 07/27/16 08/15/16 History [Tricor] Finasteride [Proscar] 5 mg PO HS 07/27/16 08/15/16 History Gabapentin [Neurontin] 300 mg PO BID 07/27/16 08/15/16 History Insulin Glargine,Hum.rec.anlog 60 unit SQ HS 07/27/16 08/15/16 History [Lantus Solostar] Metoprolol Tartrate [Lopressor] 100 mg PO BID 07/27/16 08/15/16 History Niacin [Niacin ER] 500 mg PO DAILY 07/27/16 08/15/16 History Tamsulosin HCl [Flomax] 0.4 mg PO QAM 07/27/16 08/15/16 History Allopurinol [Zyloprim] 100 mg PO DAILY 08/15/16 08/15/16 History Furosemide [Lasix] 40 mg PO BID 08/15/16 08/15/16 History Gabapentin [Neurontin] 100 mg PO BID 08/15/16 08/15/16 History Spironolactone [Aldactone] 25 mg PO DAILY 08/15/16 08/15/16 History Warfarin [Coumadin] 1.25 mg PO DAILY 08/15/16 08/15/16 History buPROPion HCL [Wellbutrin XL] 300 mg PO DAILY 08/15/16 08/15/16 History Allergies Allergy/AdvReac Type Severity Reaction Status Date / Time sulfamethoxazole Allergy Rash/Hives Verified 08/15/16 06:20 [From Bactrim] trimethoprim [From Bactrim] Allergy Rash/Hives Verified 08/15/16 06:20 Physical Exam Osteopathic Statement: *. No significant issues noted on an osteopathic structural exam other than those noted in the History and Physical/Consult. Vitals: Vital Signs Temp Pulse Pulse Pulse Resp BP BP 08/20/16 12:00 98.7 F 106 H 24 145/78 08/20/16 11:00 86 14 113/79 08/20/16 10:15 100 17 153/80 08/20/16 10:00 106 H 17 123/68 08/20/16 09:45 103 H 17 145/87 08/20/16 09:30 130 H 19 134/85 08/20/16 09:15 94 15 144/79 08/20/16 09:00 88 18 120/84 08/20/16 08:45 103 H 15 142/94 08/20/16 08:30 115 H 17 149/89 08/20/16 08:15 101 H 20 139/79 08/20/16 08:00 102 H 18 140/88 08/20/16 07:45 106 H 18 139/90 08/20/16 07:30 93 18 120/88 08/20/16 07:15 107 H 19 168/92 08/20/16 07:00 97 21 156/101 08/20/16 06:45 99.3 F 121 H 23 146/94 08/20/16 06:00 138 H 22 183/108 08/20/16 05:45 124 H 23 153/106 08/20/16 05:30 142 H 13 154/95 08/20/16 05:15 155 H 30 H 189/88 08/20/16 05:00 128 H 27 H 198/98 08/20/16 04:45 128 H 21 145/95 08/20/16 04:30 145 H 19 150/108 08/20/16 04:15 155 H 32 H 153/98 08/20/16 04:00 132 H 20 177/94 08/20/16 03:56 122 H 33 H 146/88 08/20/16 03:13 130 H 22 141/82 08/19/16 23:00 97.6 F 99 20 113/69 08/19/16 15:25 104 H 20 08/19/16 15:00 97.8 F 104 H 20 113/73 Pulse Ox 08/20/16 12:00 98 08/20/16 11:00 96 08/20/16 10:15 96 08/20/16 10:00 97 08/20/16 09:45 95 08/20/16 09:30 97 08/20/16 09:15 97 08/20/16 09:00 97 08/20/16 08:45 97 08/20/16 08:30 97 08/20/16 08:15 96 08/20/16 08:00 94 L 08/20/16 07:45 97 08/20/16 07:30 97 08/20/16 07:15 97 08/20/16 07:00 97 08/20/16 06:45 97 08/20/16 06:00 08/20/16 05:45 08/20/16 05:30 08/20/16 05:15 08/20/16 05:00 08/20/16 04:45 08/20/16 04:30 08/20/16 04:15 08/20/16 04:00 08/20/16 03:56 08/20/16 03:13 93 L 08/19/16 23:00 91 L 08/19/16 15:25 08/19/16 15:00 93 L Intake and Output 08/19/16 08/20/16 08/20/16 22:59 06:59 14:59 Intake Total 160 6.75 160 Output Total 173 257 8814 Balance -90 -868.25 -1030 Intake: IV 160 160 .9 @ 20 160 60 Magnesium Sulfate-D5w Pmx 100 1 gm In Dextrose/Water 1 100ml.bag @ 100 mls/hr IVPB Q1H CARLOS Rx#: [id number] Intake, IV Titration 6.75 Amount Diltiazem 125 mg In 6.75 Sodium Chloride 0.9% 100 ml @ 5 MG/HR 5 mls/hr IV .Q24H CARLOS Rx#:[id number] Output: Urine 388 [id number] [id number] Other: Voiding Method Urinal Diaper Indwelling Catheter Incontinent Indwelling Catheter # Voids 2 1 Weight 155.5 kg 155.5 kg 162.1 kg Patient Weight 08/21/16 06:59 Weight 162.1 kg Gen.: Patient is on BiPAP, comfortable, arousable, super morbidly obese Cardiovascular: Irregular rate and rhythm, S1/S2 Lungs: Diminished breath sounds at the bases with scattered crackles Abdomen: Soft nontender nondistended positive bowel sounds Extremities: Cellulitis, chronic venous stasis, edema Results - Laboratory Findings CBC and BMP: 08/20/16 03:09 08/20/16 03:09 PT/INR, D-dimer PT 29.7 sec (9.0-12.0) H 08/20/16 03:09 INR 3.1 (<1.1) 08/20/16 03:09 Abnormal lab findings: Abnormal Labs 08/15/16 08/15/16 08/15/16 06:04 06:40 11:54 WBC RBC Hgb MCV MCHC Plt Count Neutrophils # PT INR Potassium Chloride Carbon Dioxide BUN Creatinine Glucose POC Glucose (mg/dL) 155 H Ammonia Total Creatine Kinase 196 H 209 H CK-MB (CK-2) 2.9 H* Troponin I 0.240 H* 0.201 H* Albumin Urine Protein Urine Blood Ur Leukocyte Esterase Urine RBC Amorphous Sediment Urine Mucus Vancomycin Trough 08/15/16 08/15/16 08/15/16 11:56 17:03 20:46 WBC RBC Hgb MCV MCHC Plt Count Neutrophils # PT INR Potassium Chloride Carbon Dioxide BUN Creatinine Glucose POC Glucose (mg/dL) 157 H 123 H 137 H Ammonia Total Creatine Kinase CK-MB (CK-2) Troponin I Albumin Urine Protein Urine Blood Ur Leukocyte Esterase Urine RBC Amorphous Sediment Urine Mucus Vancomycin Trough 08/16/16 08/16/16 08/16/16 10:42 11:47 12:17 WBC RBC Hgb MCV MCHC Plt Count Neutrophils # PT 43.6 H INR Potassium Chloride Carbon Dioxide BUN Creatinine Glucose POC Glucose (mg/dL) 63 L 64 L Ammonia Total Creatine Kinase CK-MB (CK-2) Troponin I Albumin Urine Protein Urine Blood Ur Leukocyte Esterase Urine RBC Amorphous Sediment Urine Mucus Vancomycin Trough 08/17/16 08/17/16 08/17/16 06:53 06:53 06:53 WBC 14.5 H RBC 4.22 L Hgb 12.6 L MCV 102.9 H MCHC 29.0 L Plt Count 479 H Neutrophils # PT 52.1 H INR 5.2 H* Potassium 5.3 H Chloride Carbon Dioxide 20 L BUN 35 H Creatinine 1.53 H Glucose POC Glucose (mg/dL) Ammonia Total Creatine Kinase CK-MB (CK-2) Troponin I Albumin 2.9 L Urine Protein Urine Blood Ur Leukocyte Esterase Urine RBC Amorphous Sediment Urine Mucus Vancomycin Trough 08/17/16 08/17/16 08/17/16 11:29 16:23 21:03 WBC RBC Hgb MCV MCHC Plt Count Neutrophils # PT INR Potassium Chloride Carbon Dioxide BUN Creatinine Glucose POC Glucose (mg/dL) 150 H 194 H 138 H Ammonia Total Creatine Kinase CK-MB (CK-2) Troponin I Albumin Urine Protein Urine Blood Ur Leukocyte Esterase Urine RBC Amorphous Sediment Urine Mucus Vancomycin Trough 08/17/16 08/18/16 08/18/16 23:00 07:08 07:08 WBC RBC Hgb MCV MCHC Plt Count Neutrophils # PT 49.2 H INR Potassium Chloride Carbon Dioxide BUN 38 H Creatinine 1.75 H Glucose 41 L* POC Glucose (mg/dL) Ammonia Total Creatine Kinase CK-MB (CK-2) Troponin I Albumin 2.8 L Urine Protein Urine Blood Ur Leukocyte Esterase Urine RBC Amorphous Sediment Urine Mucus Vancomycin Trough 31.1 H* 08/18/16 08/18/16 08/18/16 07:08 17:20 20:08 WBC 19.6 H RBC 4.08 L Hgb 12.1 L MCV MCHC 29.8 L Plt Count 555 H Neutrophils # PT INR Potassium Chloride Carbon Dioxide BUN Creatinine Glucose POC Glucose (mg/dL) 59 L 127 H Ammonia Total Creatine Kinase CK-MB (CK-2) Troponin I Albumin Urine Protein Urine Blood Ur Leukocyte Esterase Urine RBC Amorphous Sediment Urine Mucus Vancomycin Trough 08/19/16 08/19/16 08/19/16 07:30 07:30 07:30 WBC 12.4 H RBC 3.99 L Hgb 12.3 L MCV MCHC 30.9 L Plt Count 465 H Neutrophils # 9.6 H PT 54.6 H INR 5.4 H* Potassium Chloride Carbon Dioxide BUN 38 H Creatinine 1.89 H Glucose POC Glucose (mg/dL) Ammonia Total Creatine Kinase CK-MB (CK-2) Troponin I Albumin Urine Protein Urine Blood Ur Leukocyte Esterase Urine RBC Amorphous Sediment Urine Mucus Vancomycin Trough 08/19/16 08/19/16 08/19/16 11:24 14:41 20:27 WBC RBC Hgb MCV MCHC Plt Count Neutrophils # PT INR Potassium Chloride Carbon Dioxide BUN Creatinine Glucose POC Glucose (mg/dL) 117 H 110 H 145 H Ammonia Total Creatine Kinase CK-MB (CK-2) Troponin I Albumin Urine Protein Urine Blood Ur Leukocyte Esterase Urine RBC Amorphous Sediment Urine Mucus Vancomycin Trough 08/20/16 08/20/16 08/20/16 02:25 03:09 03:09 WBC RBC Hgb MCV MCHC Plt Count Neutrophils # PT INR Potassium Chloride 108 H Carbon Dioxide BUN 36 H Creatinine 1.66 H Glucose POC Glucose (mg/dL) 69 L Ammonia 52 H Total Creatine Kinase CK-MB (CK-2) Troponin I Albumin 3.1 L Urine Protein Urine Blood Ur Leukocyte Esterase Urine RBC Amorphous Sediment Urine Mucus Vancomycin Trough 08/20/16 08/20/16 08/20/16 03:09 03:09 04:20 WBC 18.6 H RBC 4.16 L Hgb 12.7 L MCV MCHC 30.9 L Plt Count 516 H Neutrophils # PT 29.7 H INR Potassium Chloride Carbon Dioxide BUN Creatinine Glucose POC Glucose (mg/dL) Ammonia Total Creatine Kinase CK-MB (CK-2) Troponin I Albumin Urine Protein Trace H Urine Blood Trace H Ur Leukocyte Esterase Large H Urine RBC 10 H Amorphous Sediment Rare H Urine Mucus Rare H Vancomycin Trough 08/20/16 08/20/16 08/20/16 12:46 12:47 13:12 WBC RBC Hgb MCV MCHC Plt Count Neutrophils # PT INR Potassium Chloride Carbon Dioxide BUN Creatinine Glucose POC Glucose (mg/dL) 54 L 58 L 102 H Ammonia Total Creatine Kinase CK-MB (CK-2) Troponin I Albumin Urine Protein Urine Blood Ur Leukocyte Esterase Urine RBC Amorphous Sediment Urine Mucus Vancomycin Trough - Diagnostic Findings Chest x-ray: report reviewed, image reviewed Assessment and Plan Plan: Acute hypoxic respiratory failure Acute exacerbation of CHF, diastolic, ejection fraction 60-65% Atrial fibrillation with rapid ventricular response Likely underlying COPD, active tobacco abuse Coumadin coagulopathy, therapeutic Sepsis Anemia, normochromic normocytic Thrombocytosis Hyperammonemia Question Urinary tract infection Lower extremity cellulitis Diabetic ulcer DM2 Super morbid obesity, concerning for underlying MACO/OHS Toxic metabolic encephalopathy Acute kidney injury on chronic kidney disease Pulmonary hypertension, moderate to severe, RVSP 53 mmHg Peripheral arterial disease Active tobacco abuse Continue BiPAP Cardizem drip per cardiology team Diuresis, increase Lasix to twice a day Monitor renal function Check ABG now AM CBC, CMP, Ammonia Bronchodilators and Pulmicort Antibiotics: Rocephin per ID Wound care Lactulose for elevated ammonia Repeat blood, urine cultures, pt unable to expectorate sputum at this time NPO while on bipap GI and DVT Prophylaxis: coumadin and Protonix Smoking cessation highly recommended, Nicotine TD Outpatient PSG and pulmonary follow up recommended Thank you for this consultation. We will continue to follow along.
[2016-08-20 15:30] LABS: Hemoglobin A1C 6.8 % (4.2-6.1)
[2016-08-20 16:05] LABS: Glucose,Whole Blood 65 mg/dL (75-99)
[2016-08-20] MEDS ORDERED: DEXTROSE 50%-WATER 50 ML SYRINGE IVP ONE (16:13)
[2016-08-20 16:38] LABS: ABG Base Excess 1.2 mmol/L; ABG HCO3 27 mmol/L (21-25); ABG PCO2 56 mmHg (35-45); ABG PO2 104 mmHg (83-108); ABG TCO2 29 mmol/L (19-24)
[2016-08-20 16:39] LABS: ABG Oxygen Saturation 97.2 % (94-97)
[2016-08-20 16:44] LABS: Glucose,Whole Blood 100 mg/dL (75-99)
[2016-08-20] MEDS: LEVALBUTEROL NEB 1.25 MG/3 ML AMP INHALATION SCH ×2 (16:56→19:23)
[2016-08-20] MEDS: LACTULOSE 200 GM/300 ML (FROM 1/2 GAL JUG) RECTAL SCH (18:50)
[2016-08-20] MEDS: DEXTROSE 5% IN WATER 1,000 ML IV SCH (18:52)
[2016-08-20] MEDS: BUDESONIDE 0.5 MG/2 ML NEBU INHALATION SCH (19:23)
[2016-08-20] MEDS ORDERED: THIAMINE 100 MG/ML 2 ML VIAL IM STA (19:57)
--- NOTE | 2016-08-20 20:03 | P.PN ---
Subjective Principal diagnosis: fever cellulitis 61-year-old male with a long-standing history of diabetes mellitus type 2 poorly controlled as well as coronary artery disease congestive heart failure and chronic lower extremity edema. He was recently hospitalized without evidence of an infection to his left leg and heel. He was seen by vascular surgery has been following the wound center. The patient has been on antibiotic therapy with ciprofloxacin. For the isolated pathogens. The patient relates in the days before coming to hospital he started to feel ill. Increasing weakness. Increasing swelling and redness to the leg. An increasing over the left heel. His was trying to get him to come to the hospital for days before he finally came because he became so weak that he could no longer object. Upon arrival to the emergency center temperature 102.2 was noted. He was also having difficulty with worsening arrhythmia with his atrial fibrillation having a rapid ventricular response. He has been seen by cardiology. And there is been improvement of his uncontrolled rhythm. He still feels poorly. He's had fever which is feeling slightly better at this time still has chills. Is concerned about the ongoing ulceration to his left heel. He relates that he has not been offloading it. He can't wear any shoes causes his legs are so swollen. Spends his time in a lazy- boy recliner when he is at home. His had a further decline of his status. He is now in the intensive care unit. He has BiPAP in place for worsening respiratory status. The patient became somewhat uncooperative and somnolent. Patient's is present and does relate that he does significant amount of alcohol daily. Yesterday was a fourth day of hospital stay. Patient is currently comfortable in the intensive care unit with BiPAP in place. Hemodynamically stable. Objective - Vital Signs Vital signs: Vital Signs Temp 98.7 F 08/20/16 16:00 Pulse 98 08/20/16 19:27 Resp 16 08/20/16 19:00 BP 130/83 08/20/16 19:00 Pulse Ox 97 08/20/16 19:00 Intake & Output 08/20/16 08/20/16 08/21/16 06:59 18:59 06:59 Intake Total 166.75 460 20 Output Total 875 2065 150 Balance -708.25 -1605 -130 Weight 155.5 kg 162.1 kg Intake: IV 160 460 20 .9 @ 20 160 120 Dextrose 5% in Water 1, 40 20 000 ml @ 20 mls/hr IV . Q24H [facility] Rx#:[id number] Magnesium Sulfate-D5w Pmx 200 1 gm In Dextrose/Water 1 100ml.bag @ 100 mls/hr IVPB Q1H [facility] Rx#: [id number] cefTRIAXone 2,000 mg In 100 Sodium Chloride 0.9% 100 ml @ 100 mls/hr IVPB Q24HR [facility] Rx#:[id number] Intake, IV Titration 6.75 Amount Diltiazem 125 mg In 6.75 Sodium Chloride 0.9% 100 ml @ 5 MG/HR 5 mls/hr IV .Q24H [facility] Rx#:[id number] Output: Urine 875 2065 150 Other: Voiding Method Diaper Indwelling Catheter Incontinent Indwelling Catheter # Voids 1 - Exam 61 year-old male who suffers from obesity. Seems to be modestly uncomfortable at this time. Of note upon entry he has his meal in front of him. He struggling to figure out where his silver is at although it is wrapped in a napkin on his tray. Does not appear to have a new acute visual change. HEENT: Anicteric conjunctiva are pink and moist nasal mucosa grossly intact without significant lesions, there is no thrush. Dentition is warm for age. Neck: The neck is supple without significant lymphadenopathy or thyromegaly. Lungs: Symmetrical air entry is noted with evidence of extra wheezes that are scattered. No julian bronchial sounds were noted. No egophony or dullness. Heart: Irregular with an audible S1 and S2, no S3 soft S4, no new murmur click or rub. Abdomen: Obese, Positive bowel sounds soft and nontender without palpable masses or organomegaly. There was no guarding or rebound. Evidence of the prior abdominal surgeries noted. At the most superior aspect of the surgical incision is evidence of some hyper-granulation tissue. At the base of the hyperventilation tissue is exposed mesh. Extremities: There is bilateral lower extremity edema. There some erythema to both lower extremities. Much more prominent on the right lower extremity from the knee distally. There is evidence of the significant ulceration to the heel that measures at 7.1 x 5.2 x 0.3 cm. Neuro: Sedated, opens eyes to stimulation but does not try to communicate. Attempts to remove his BiPAP and is gently reminded to not remove it. - Labs CBC & Chem 7: 08/20/16 03:09 08/20/16 03:09 Labs: Abnormal Lab Results - Last 24 Hours (Table) 08/19/16 08/20/16 08/20/16 Range/Units 20:27 02:09 02:25 WBC (3.8-10.6) k/uL RBC (4.30-5.90) m/uL Hgb (13.0-17.5) gm/dL MCHC (31.0-37.0) g/dL Plt Count (150-450) k/uL PT (9.0-12.0) sec ABG pH (7.35-7.45) ABG pCO2 (35-45) mmHg ABG HCO3 (21-25) mmol/L ABG Total CO2 (19-24) mmol/L ABG O2 Saturation (94-97) % Chloride (98-107) mmol/L BUN (9-20) mg/dL Creatinine (0.66-1.25) mg/dL POC Glucose (mg/dL) 145 H 69 L (75-99) mg/dL Hemoglobin A1c 6.8 H (4.2-6.1) % Ammonia (<30) umol/L Albumin (3.5-5.0) g/dL Urine Protein (Negative) Urine Blood (Negative) Ur Leukocyte Esterase (Negative) Urine RBC (0-5) /hpf Amorphous Sediment (None) /hpf Urine Mucus (None) /hpf 08/20/16 08/20/16 08/20/16 Range/Units 03:09 03:09 03:09 WBC (3.8-10.6) k/uL RBC (4.30-5.90) m/uL Hgb (13.0-17.5) gm/dL MCHC (31.0-37.0) g/dL Plt Count (150-450) k/uL PT 29.7 H (9.0-12.0) sec ABG pH (7.35-7.45) ABG pCO2 (35-45) mmHg ABG HCO3 (21-25) mmol/L ABG Total CO2 (19-24) mmol/L ABG O2 Saturation (94-97) % Chloride 108 H (98-107) mmol/L BUN 36 H (9-20) mg/dL Creatinine 1.66 H (0.66-1.25) mg/dL POC Glucose (mg/dL) (75-99) mg/dL Hemoglobin A1c (4.2-6.1) % Ammonia 52 H (<30) umol/L Albumin 3.1 L (3.5-5.0) g/dL Urine Protein (Negative) Urine Blood (Negative) Ur Leukocyte Esterase (Negative) Urine RBC (0-5) /hpf Amorphous Sediment (None) /hpf Urine Mucus (None) /hpf 08/20/16 08/20/16 08/20/16 Range/Units 03:09 04:20 12:46 WBC 18.6 H (3.8-10.6) k/uL RBC 4.16 L (4.30-5.90) m/uL Hgb 12.7 L (13.0-17.5) gm/dL MCHC 30.9 L (31.0-37.0) g/dL Plt Count 516 H (150-450) k/uL PT (9.0-12.0) sec ABG pH (7.35-7.45) ABG pCO2 (35-45) mmHg ABG HCO3 (21-25) mmol/L ABG Total CO2 (19-24) mmol/L ABG O2 Saturation (94-97) % Chloride (98-107) mmol/L BUN (9-20) mg/dL Creatinine (0.66-1.25) mg/dL POC Glucose (mg/dL) 54 L (75-99) mg/dL Hemoglobin A1c (4.2-6.1) % Ammonia (<30) umol/L Albumin (3.5-5.0) g/dL Urine Protein Trace H (Negative) Urine Blood Trace H (Negative) Ur Leukocyte Esterase Large H (Negative) Urine RBC 10 H (0-5) /hpf Amorphous Sediment Rare H (None) /hpf Urine Mucus Rare H (None) /hpf 08/20/16 08/20/16 08/20/16 Range/Units 12:47 13:12 16:02 WBC (3.8-10.6) k/uL RBC (4.30-5.90) m/uL Hgb (13.0-17.5) gm/dL MCHC (31.0-37.0) g/dL Plt Count (150-450) k/uL PT (9.0-12.0) sec ABG pH (7.35-7.45) ABG pCO2 (35-45) mmHg ABG HCO3 (21-25) mmol/L ABG Total CO2 (19-24) mmol/L ABG O2 Saturation (94-97) % Chloride (98-107) mmol/L BUN (9-20) mg/dL Creatinine (0.66-1.25) mg/dL POC Glucose (mg/dL) 58 L 102 H 65 L (75-99) mg/dL Hemoglobin A1c (4.2-6.1) % Ammonia (<30) umol/L Albumin (3.5-5.0) g/dL Urine Protein (Negative) Urine Blood (Negative) Ur Leukocyte Esterase (Negative) Urine RBC (0-5) /hpf Amorphous Sediment (None) /hpf Urine Mucus (None) /hpf 08/20/16 08/20/16 Range/Units 16:33 16:40 WBC (3.8-10.6) k/uL RBC (4.30-5.90) m/uL Hgb (13.0-17.5) gm/dL MCHC (31.0-37.0) g/dL Plt Count (150-450) k/uL PT (9.0-12.0) sec ABG pH 7.30 L (7.35-7.45) ABG pCO2 56 H (35-45) mmHg ABG HCO3 27 H (21-25) mmol/L ABG Total CO2 29 H (19-24) mmol/L ABG O2 Saturation 97.2 H (94-97) % Chloride (98-107) mmol/L BUN (9-20) mg/dL Creatinine (0.66-1.25) mg/dL POC Glucose (mg/dL) 100 H (75-99) mg/dL Hemoglobin A1c (4.2-6.1) % Ammonia (<30) umol/L Albumin (3.5-5.0) g/dL Urine Protein (Negative) Urine Blood (Negative) Ur Leukocyte Esterase (Negative) Urine RBC (0-5) /hpf Amorphous Sediment (None) /hpf Urine Mucus (None) /hpf Microbiology - Last 24 Hours (Table) 08/20/16 04:20 Urine Culture - Preliminary Urine,Catheterized 08/19/16 11:30 Gram Stain - Preliminary Heel - Right Wound Culture - Preliminary Gram Neg Bacilli Laboratory Results WBC 18.6 k/uL (3.8-10.6) H 08/20/16 03:09 RBC 4.16 m/uL (4.30-5.90) L 08/20/16 03:09 Hgb 12.7 gm/dL (13.0-17.5) L 08/20/16 03:09 Hct 41.0 % (39.0-53.0) 08/20/16 03:09 MCV 98.7 fL (80.0-100.0) 08/20/16 03:09 MCH 30.5 pg (25.0-35.0) 08/20/16 03:09 MCHC 30.9 g/dL (31.0-37.0) L 08/20/16 03:09 RDW 15.3 % (11.5-15.5) 08/20/16 03:09 Plt Count 516 k/uL (150-450) H 08/20/16 03:09 Neutrophils % 77 % 08/19/16 07:30 Lymphocytes % 11 % 08/19/16 07:30 Monocytes % 5 % 08/19/16 07:30 Eosinophils % 3 % 08/19/16 07:30 Basophils % 1 % 08/19/16 07:30 Neutrophils # 9.6 k/uL (1.3-7.7) H 08/19/16 07:30 Lymphocytes # 1.3 k/uL (1.0-4.8) 08/19/16 07:30 Monocytes # 0.7 k/uL (0-1.0) 08/19/16 07:30 Eosinophils # 0.3 k/uL (0-0.7) 08/19/16 07:30 Basophils # 0.1 k/uL (0-0.2) 08/19/16 07:30 Manual Slide Review Performed 08/19/16 07:30 Hypochromasia Marked 08/20/16 03:09 Poikilocytosis Slight 08/20/16 03:09 Macrocytosis Slight 08/20/16 03:09 PT 29.7 sec (9.0-12.0) H 08/20/16 03:09 INR 3.1 (<1.1) 08/20/16 03:09 APTT 33.2 sec (22.0-30.0) H 08/15/16 00:40 Sample Site LRAD 08/20/16 16:33 ABG pH 7.30 (7.35-7.45) L 08/20/16 16:33 ABG pCO2 56 mmHg (35-45) H 08/20/16 16:33 ABG pO2 104 mmHg (83-108) 08/20/16 16:33 ABG HCO3 27 mmol/L (21-25) H 08/20/16 16:33 ABG Total CO2 29 mmol/L (19-24) H 08/20/16 16:33 ABG O2 Saturation 97.2 % (94-97) H 08/20/16 16:33 ABG Base Excess 1.2 mmol/L 08/20/16 16:33 FiO2 50 % 08/20/16 16:33 Sodium 141 mmol/L (137-145) 08/20/16 03:09 Potassium 5.1 mmol/L (3.5-5.1) 08/20/16 03:09 Chloride 108 mmol/L (98-107) H 08/20/16 03:09 Carbon Dioxide 23 mmol/L (22-30) 08/20/16 03:09 Anion Gap 10 mmol/L 08/20/16 03:09 BUN 36 mg/dL (9-20) H 08/20/16 03:09 Creatinine 1.66 mg/dL (0.66-1.25) H 08/20/16 03:09 Est GFR (MDRD) Af Amer 51 (>60 ml/min/1.73 sqM) 08/20/16 03:09 Est GFR (MDRD) Non-Af 42 (>60 ml/min/1.73 sqM) 08/20/16 03:09 Glucose 92 mg/dL (74-99) 08/20/16 03:09 POC Glucose (mg/dL) 100 mg/dL (75-99) H 08/20/16 16:40 POC Glu Clinical Quality Analyst ID Marybel Evans 08/20/16 16:[address] Glu mg/dL 148 mg/dL 08/20/16 02:09 Hemoglobin A1c 6.8 % (4.2-6.1) H 08/20/16 02:09 Plasma Lactic Acid Cristiano 1.1 mmol/L (0.7-2.0) 08/20/16 03:09 Calcium 8.9 mg/dL (8.4-10.2) 08/20/16 03:09 Phosphorus 3.0 mg/dL (2.5-4.5) 08/20/16 04:00 Magnesium 2.0 mg/dL (1.6-2.3) 08/20/16 04:00 Total Bilirubin 0.8 mg/dL (0.2-1.3) 08/20/16 03:09 AST 37 U/L (17-59) 08/20/16 03:09 ALT 28 U/L (21-72) 08/20/16 03:09 Alkaline Phosphatase 106 U/L (38-126) 08/20/16 03:09 Ammonia 52 umol/L (<30) H 08/20/16 03:09 Total Creatine Kinase 209 U/L (55-170) H 08/15/16 11:54 CK-MB (CK-2) 2.9 ng/mL (0.0-2.4) H* 08/15/16 11:54 CK-MB (CK-2) Rel Index 1.4 08/15/16 11:54 Troponin I 0.201 ng/mL (0.000-0.034) H* 08/15/16 11:54 NT-Pro-B Natriuret Pep 7750 pg/mL 08/20/16 03:09 Total Protein 6.8 g/dL (6.3-8.2) 08/20/16 03:09 Albumin 3.1 g/dL (3.5-5.0) L 08/20/16 03:09 TSH 2.480 mIU/L (0.465-4.680) 08/20/16 04:00 Urine Color Yellow 08/20/16 04:20 Urine Appearance Cloudy (Clear) 08/20/16 04:20 Urine pH 5.5 (5.0-8.0) 08/20/16 04:20 Ur Specific [place] 1.014 (1.001-1.035) 08/20/16 04:20 Urine Protein Trace (Negative) H 08/20/16 04:20 Urine Glucose (UA) Negative (Negative) 08/20/16 04:20 Urine Ketones Negative (Negative) 08/20/16 04:20 Urine Blood Trace (Negative) H 08/20/16 04:20 Urine Nitrite Negative (Negative) 08/20/16 04:20 Urine Bilirubin Negative (Negative) 08/20/16 04:20 Urine Urobilinogen <2.0 mg/dL (<2.0) 08/20/16 04:20 Ur Leukocyte Esterase Large (Negative) H 08/20/16 04:20 Urine RBC 10 /hpf (0-5) H 08/20/16 04:20 Urine WBC 2 /hpf (0-5) 08/20/16 04:20 Urine WBC Clumps Rare /hpf (None) H 08/15/16 00:40 Ur Squamous Epith Cells 3 /hpf (0-4) 08/20/16 04:20 Amorphous Sediment Rare /hpf (None) H 08/20/16 04:20 Urine Bacteria Rare /hpf (None) H 08/15/16 00:40 Hyaline Casts 8 /lpf (0-2) H 08/15/16 00:40 Urine Mucus Rare /hpf (None) H 08/20/16 04:20 Vancomycin Trough 31.1 ug/mL H* 08/17/16 23:00 Random Vancomycin 17.0 ug/mL 08/20/16 04:00 Microbiology 08/20/16 04:20 Urine,Catheterized Urine Culture - Preliminary 08/19/16 11:30 Heel - Right Gram Stain - Preliminary 08/19/16 11:30 Heel - Right Wound Culture - Preliminary Gram Neg Bacilli 08/15/16 00:40 Blood Blood Culture - Preliminary No Growth after 120 hours 08/15/16 00:40 Urine,Voided Urine Culture - Final Assessment and Plan (1) Sepsis Narrative/Plan: 61-year-old male who has a history of multiple medical troubles that includes diabetes obesity coronary artery disease and atrial fibrillation. Presents to Hospital feeling very poorly. He had worsening cardiac dysrhythmia his atrial fibrillation and developed a rapid ventricular response. Became weak and ill and constantly remitted to coming to hospital. He is having difficulty with worsening ulceration to his heel. It was noted during his last hospital stay. And is to be getting ongoing care at the wound healing Center. During the last stay it was a goal to have him go to extended care however he refused. And then with therapy he was proving that he was able to get up and move a bit. Despite this he has not been doing well at home. He's been getting worse. He now has marked worsening infection to the right leg. Prior culture shows evidence of MRSA, klebsiella and Proteus infection. Constantly vancomycin and ceftriaxone were given for now until we have further data. Avoid Levaquin use since he is on Coumadin. Patient is chronic medical noncompliance. He has hemoglobin A1c was down to 6.1 Patient has been having difficulties with offloading the heel. A brown air boot is been requested to get up and off the bed at this time. We'll need to have a specialty boot designed the time of his discharge to take weight off of the heel. He will follow the wound healing Center. He' will continue follow- up with the vascular surgeon. Local wound care with Santyl will be utilized given large amount of necrotic material, may need surgical debridement Pain control is improved Atrial fibrillation is controlled. Continues to have leukocytosis but improving with current wound care and antibiotic therapy Creatinine is increased. We'll discontinue ketorolac. Vancomycin will be placed on hold. Follow-up cultures obtained. Wound culture with gram-negative bacilli. Patient does have a remote history of pseudomonal infection. As well as of MRSA. Creatinine is improving and we' ll alter antibiotic therapy from ceftriaxone to cefepime given the current culture results. Patient receiving BiPAP and into the altered his mental status. Concerned to DTs and the alcohol withdrawal protocol was initiated. 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
[2016-08-20] MEDS: FUROSEMIDE 10 MG/ML 4 ML VIAL IV SCH (21:09)
[2016-08-20] MEDS: CEFEPIME 2 GM in SODIUM CHLORIDE 0.9% 50 ML IVPB SCH (21:09)
[2016-08-20] MEDS: COLLAGENASE 250 UNIT/GM OINTMENT 30 GM TUBE TOPICAL SCH (21:10)
[2016-08-20 21:11] LABS: Glucose,Whole Blood 77 mg/dL (75-99)
[2016-08-20] MEDS: INSULIN GLARGINE 100 UNIT/ML 10 ML VIAL SQ SCH (21:24)
--- NOTE | 2016-08-20 21:47 | P.PN ---
Subjective Principal diagnosis: Altered mental status. This is continued approximately 61-year-old white male who was essentially admitted for recurrent and bilateral lower exam is cellulitis and diabetic foot ulcer. He has not History of atrial fibrillation and history of severe nicotine dependence. Yesterday evening, he had significant altered mental status change and because of this and his multiple comorbidities and ended up being admitted to the ICU for appropriate care. He has been battling systemic inflammatory response and sepsis symptoms started to recur. The patient is not transferred to the ICU and having to be sedated with Ativan. Objective - Vital Signs Vital signs: Vital Signs Temp 98.4 F 08/20/16 21:00 Pulse 98 08/20/16 21:00 Resp 19 08/20/16 21:00 BP 131/76 08/20/16 21:00 Pulse Ox 96 08/20/16 21:00 Intake & Output 08/20/16 08/20/16 08/21/16 06:59 18:59 06:59 Intake Total 166.75 460 60 Output Total 875 2215 450 Balance -708.25 -1755 -390 Weight 155.5 kg 162.1 kg Intake: IV 160 460 60 .9 @ 20 160 120 Dextrose 5% in Water 1, 40 60 000 ml @ 20 mls/hr IV . Q24H [facility] Rx#:[id number] Magnesium Sulfate-D5w Pmx 200 1 gm In Dextrose/Water 1 100ml.bag @ 100 mls/hr IVPB Q1H [facility] Rx#: [id number] cefTRIAXone 2,000 mg In 100 Sodium Chloride 0.9% 100 ml @ 100 mls/hr IVPB Q24HR [facility] Rx#:[id number] Intake, IV Titration 6.75 Amount Diltiazem 125 mg In 6.75 Sodium Chloride 0.9% 100 ml @ 5 MG/HR 5 mls/hr IV .Q24H [facility] Rx#:[id number] Output: Urine 875 2215 450 Other: Voiding Method Diaper Indwelling Catheter Incontinent Indwelling Catheter # Voids 1 - Constitutional General appearance: Present: obese - EENT Eyes: Absent: abnormal pupil - Neck Neck: Absent: lymphadenopathy - Cardiovascular Rhythm: irregularly irregular Heart sounds: normal: S1, S2 - Gastrointestinal General gastrointestinal: Present: soft, tenderness - Integumentary Integumentary: Present: cellulitis, ulcer - Musculoskeletal Musculoskeletal: Present: generalized weakness - Labs CBC & Chem 7: 08/20/16 03:09 08/20/16 03:09 Labs: Abnormal Lab Results - Last 24 Hours (Table) 08/20/16 08/20/16 08/20/16 Range/Units 02:09 02:25 03:09 WBC (3.8-10.6) k/uL RBC (4.30-5.90) m/uL Hgb (13.0-17.5) gm/dL MCHC (31.0-37.0) g/dL Plt Count (150-450) k/uL PT (9.0-12.0) sec ABG pH (7.35-7.45) ABG pCO2 (35-45) mmHg ABG HCO3 (21-25) mmol/L ABG Total CO2 (19-24) mmol/L ABG O2 Saturation (94-97) % Chloride 108 H (98-107) mmol/L BUN 36 H (9-20) mg/dL Creatinine 1.66 H (0.66-1.25) mg/dL POC Glucose (mg/dL) 69 L (75-99) mg/dL Hemoglobin A1c 6.8 H (4.2-6.1) % Ammonia (<30) umol/L Albumin 3.1 L (3.5-5.0) g/dL Urine Protein (Negative) Urine Blood (Negative) Ur Leukocyte Esterase (Negative) Urine RBC (0-5) /hpf Amorphous Sediment (None) /hpf Urine Mucus (None) /hpf 08/20/16 08/20/16 08/20/16 Range/Units 03:09 03:09 03:09 WBC 18.6 H (3.8-10.6) k/uL RBC 4.16 L (4.30-5.90) m/uL Hgb 12.7 L (13.0-17.5) gm/dL MCHC 30.9 L (31.0-37.0) g/dL Plt Count 516 H (150-450) k/uL PT 29.7 H (9.0-12.0) sec ABG pH (7.35-7.45) ABG pCO2 (35-45) mmHg ABG HCO3 (21-25) mmol/L ABG Total CO2 (19-24) mmol/L ABG O2 Saturation (94-97) % Chloride (98-107) mmol/L BUN (9-20) mg/dL Creatinine (0.66-1.25) mg/dL POC Glucose (mg/dL) (75-99) mg/dL Hemoglobin A1c (4.2-6.1) % Ammonia 52 H (<30) umol/L Albumin (3.5-5.0) g/dL Urine Protein (Negative) Urine Blood (Negative) Ur Leukocyte Esterase (Negative) Urine RBC (0-5) /hpf Amorphous Sediment (None) /hpf Urine Mucus (None) /hpf 08/20/16 08/20/16 08/20/16 Range/Units 04:20 12:46 12:47 WBC (3.8-10.6) k/uL RBC (4.30-5.90) m/uL Hgb (13.0-17.5) gm/dL MCHC (31.0-37.0) g/dL Plt Count (150-450) k/uL PT (9.0-12.0) sec ABG pH (7.35-7.45) ABG pCO2 (35-45) mmHg ABG HCO3 (21-25) mmol/L ABG Total CO2 (19-24) mmol/L ABG O2 Saturation (94-97) % Chloride (98-107) mmol/L BUN (9-20) mg/dL Creatinine (0.66-1.25) mg/dL POC Glucose (mg/dL) 54 L 58 L (75-99) mg/dL Hemoglobin A1c (4.2-6.1) % Ammonia (<30) umol/L Albumin (3.5-5.0) g/dL Urine Protein Trace H (Negative) Urine Blood Trace H (Negative) Ur Leukocyte Esterase Large H (Negative) Urine RBC 10 H (0-5) /hpf Amorphous Sediment Rare H (None) /hpf Urine Mucus Rare H (None) /hpf 08/20/16 08/20/16 08/20/16 Range/Units 13:12 16:02 16:33 WBC (3.8-10.6) k/uL RBC (4.30-5.90) m/uL Hgb (13.0-17.5) gm/dL MCHC (31.0-37.0) g/dL Plt Count (150-450) k/uL PT (9.0-12.0) sec ABG pH 7.30 L (7.35-7.45) ABG pCO2 56 H (35-45) mmHg ABG HCO3 27 H (21-25) mmol/L ABG Total CO2 29 H (19-24) mmol/L ABG O2 Saturation 97.2 H (94-97) % Chloride (98-107) mmol/L BUN (9-20) mg/dL Creatinine (0.66-1.25) mg/dL POC Glucose (mg/dL) 102 H 65 L (75-99) mg/dL Hemoglobin A1c (4.2-6.1) % Ammonia (<30) umol/L Albumin (3.5-5.0) g/dL Urine Protein (Negative) Urine Blood (Negative) Ur Leukocyte Esterase (Negative) Urine RBC (0-5) /hpf Amorphous Sediment (None) /hpf Urine Mucus (None) /hpf 08/20/16 Range/Units 16:40 WBC (3.8-10.6) k/uL RBC (4.30-5.90) m/uL Hgb (13.0-17.5) gm/dL MCHC (31.0-37.0) g/dL Plt Count (150-450) k/uL PT (9.0-12.0) sec ABG pH (7.35-7.45) ABG pCO2 (35-45) mmHg ABG HCO3 (21-25) mmol/L ABG Total CO2 (19-24) mmol/L ABG O2 Saturation (94-97) % Chloride (98-107) mmol/L BUN (9-20) mg/dL Creatinine (0.66-1.25) mg/dL POC Glucose (mg/dL) 100 H (75-99) mg/dL Hemoglobin A1c (4.2-6.1) % Ammonia (<30) umol/L Albumin (3.5-5.0) g/dL Urine Protein (Negative) Urine Blood (Negative) Ur Leukocyte Esterase (Negative) Urine RBC (0-5) /hpf Amorphous Sediment (None) /hpf Urine Mucus (None) /hpf Microbiology - Last 24 Hours (Table) 08/20/16 04:20 Urine Culture - Preliminary Urine,Catheterized 08/19/16 11:30 Gram Stain - Preliminary Heel - Right Wound Culture - Preliminary Gram Neg Bacilli Assessment and Plan (1) Open wound of both legs with complication Status: Acute (2) Cellulitis of left lower extremity Status: Acute (3) Cellulitis of right leg Status: Acute (4) Illiterate Status: Acute (5) Smoking Status: Acute Plan: Continue supportive care. Transition to IV medication for GI prophylaxis. INR is therapeutic at this time. Electrical Machinist/liquor blender has been counseled that. Appreciate input from consultants. Check CBC and CMP in a.m. Dr. Lilly's group will be covering for the weekend.
[2016-08-20] MEDS: ONDANSETRON 4 MG/2 ML VIAL IVP PRN (21:53)
[2016-08-21 01:23] LABS: Glucose,Whole Blood 74 mg/dL (75-99)
[2016-08-21 01:23] LABS: Glucose,Whole Blood 69 mg/dL (75-99)
[2016-08-21] MEDS: LORazepam 2 MG/ML SYRINGE IV PRN ×4 (04:35→23:42)
[2016-08-21 04:37] LABS: CH 29.4; CHCM 29.4; HCT 39.5 % (39.0-53.0); HDW 3.23; HGB 11.7 gm/dL (13.0-17.5); Hypochromasia Marked; MCH 29.9 pg (25.0-35.0); MCHC 29.7 g/dL (31.0-37.0); MCV 100.6 fL (80.0-100.0); Macrocytosis Slight; Mean Platelet Volume 6.9; RBC 3.93 m/uL (4.30-5.90); RDW 15.2 % (11.5-15.5)
[2016-08-21 04:47] LABS: INR 1.7 (<1.1); Prothrombin Time 16.9 sec (9.0-12.0)
[2016-08-21 04:48] LABS: Glucose,Whole Blood 74 mg/dL (75-99)
[2016-08-21 05:28] LABS: Calcium 9.2 mg/dL (8.4-10.2); Magnesium 2.1 mg/dL (1.6-2.3); Potassium 5.1 mmol/L (3.5-5.1); Total Bilirubin 0.9 mg/dL (0.2-1.3); Total Protein 6.6 g/dL (6.3-8.2)
[2016-08-21] MEDS: DILTIAZEM 125 MG in SODIUM CHLORIDE 0.9% 100 ML IV SCH (05:30)
[2016-08-21] MEDS: LACTULOSE 200 GM/300 ML (FROM 1/2 GAL JUG) RECTAL SCH ×2 (06:53→17:53)
--- NOTE | 2016-08-21 07:04 | XR ---
EXAMINATION TYPE: XR chest 1V portable DATE OF EXAM: 08/21/2016 6:53 AM HISTORY: Shortness of breath. COMPARISON: 08/20/2016 TECHNIQUE: Single view of the chest is submitted. FINDINGS: Demonstrated are scattered senescent parenchymal change. Increasing patchy infiltrates the right perihilar and basilar regions. The heart is stable. Hilar and mediastinal structures are within normal limits. Degenerative changes are seen of the dorsal spine. IMPRESSION: 1. Increasing patchy infiltrates the right perihilar and basilar regions.
[2016-08-21] MEDS: BUDESONIDE 0.5 MG/2 ML NEBU INHALATION SCH ×2 (08:35→19:05)
[2016-08-21] MEDS: LEVALBUTEROL NEB 1.25 MG/3 ML AMP INHALATION SCH ×4 (08:35→19:05)
[2016-08-21] MEDS: NICOTINE 21MG/24HR PATCH TRANSDERM SCH (08:38)
[2016-08-21] MEDS: CEFEPIME 2 GM in SODIUM CHLORIDE 0.9% 50 ML IVPB SCH ×2 (08:38→21:00)
[2016-08-21] MEDS: FUROSEMIDE 10 MG/ML 4 ML VIAL IV SCH ×2 (08:38→22:10)
[2016-08-21] MEDS: PANTOPRAZOLE 40 MG/10 ML VIAL IVP SCH (08:38)
[2016-08-21 09:26] LABS: Glucose,Whole Blood 73 mg/dL (75-99)
[2016-08-21] MEDS ORDERED: VANCOMYCIN 1,000 MG in SODIUM CHLORIDE 0.9% 250 ML IVPB STA (09:57)
[2016-08-21] MEDS ORDERED: IV VANCOMYCIN PER PHARMACY 1 EACH MISC MISCELLANE PRN (09:57)
[2016-08-21] MEDS ORDERED: VANCOMYCIN 2,000 MG in SODIUM CHLORIDE 0.9% 500 ML IVPB SCH (11:00)
--- NOTE | 2016-08-21 12:52 | US ---
EXAMINATION TYPE: US chest DATE OF EXAM: 08/21/2016 10:00 AM COMPARISON: CXR CLINICAL HISTORY: fluid, pneumonia. Pleural effusion EXAM MEASUREMENTS: Right Pleural Effusion fluid pocket: 1.9 cm Morbidly obese pt in ICU, difficult exam Right side NOT marked for possible thoracentesis outside the dept. Left side NOT marked for possible thoracentesis outside the dept. Pulmonologists are able to review the images in the patient?s EMR. IMPRESSIONS: Exam is limited by the obesity. There is possible small pleural fluid collection demonst rated on the right side that measures 1.9 cm in maximum dimension and is 6 cm from the skin surface.
[2016-08-21 13:52] LABS: Glucose,Whole Blood 75 mg/dL (75-99)
--- NOTE | 2016-08-21 14:13 | PN ---
ADDENDUM: CRITICAL CARE TIME SPENT: 35 minutes.
[2016-08-21] MEDS: THIAMINE 100 MG TAB PO SCH ×2 (14:47→14:57)
[2016-08-21] MEDS: DAPTOmycin 500 MG in SODIUM CHLORIDE 0.9% 50 ML IV SCH (14:55)
[2016-08-21] MEDS: SODIUM CHLORIDE 0.9% 1,000 ML IV SCH (14:56)
[2016-08-21 16:40] LABS: Glucose,Whole Blood 75 mg/dL (75-99)
[2016-08-21] MEDS: DEXTROSE 5% IN WATER 1,000 ML IV SCH (17:54)
[2016-08-21] MEDS: COLLAGENASE 250 UNIT/GM OINTMENT 30 GM TUBE TOPICAL SCH (20:00)
[2016-08-21] MEDS: INSULIN GLARGINE 100 UNIT/ML 10 ML VIAL SQ SCH (20:25)
[2016-08-21] MEDS: MORPHINE SULFATE 4 MG/ML SYRINGE IV PRN (22:36)
[2016-08-21] MEDS: ONDANSETRON 4 MG/2 ML VIAL IVP PRN (22:38)
[2016-08-21 23:06] LABS: Glucose,Whole Blood 92 mg/dL (75-99)
[2016-08-22 01:27] LABS: Glucose,Whole Blood 89 mg/dL (75-99)
[2016-08-22] MEDS: MORPHINE SULFATE 4 MG/ML SYRINGE IV PRN ×3 (02:13→12:13)
[2016-08-22 04:09] LABS: ABG Base Excess 1.6 mmol/L; ABG HCO3 27 mmol/L (21-25); ABG PCO2 56 mmHg (35-45); ABG PH 7.31 (7.35-7.45); ABG PO2 87 mmHg (83-108); ABG TCO2 29 mmol/L (19-24)
[2016-08-22 05:15] LABS: Glucose,Whole Blood 89 mg/dL (75-99)
[2016-08-22 06:01] LABS: Basophils # (A) 0.1 k/uL (0-0.2); Basophils % (A) 1 %; CH 29.7; CHCM 29.3; Eosinophils # (A) 0.3 k/uL (0-0.7); Eosinophils % (A) 2 %; HCT 40.1 % (39.0-53.0); HDW 3.21; HGB 11.8 gm/dL (13.0-17.5); Hypochromasia Marked; Luc # (Auto) 0.36; Luc % (Auto) 3; Lymphocytes % (A) 7 %; MCH 30.1 pg (25.0-35.0); MCHC 29.6 g/dL (31.0-37.0); Macrocytosis Slight; Mean Platelet Volume 7.2; Monocytes # (A) 0.7 k/uL (0-1.0); Monocytes % (A) 5 %; Neutrophils # (A) 11.5 k/uL (1.3-7.7); Neutrophils % (A) 83 %; RBC 3.93 m/uL (4.30-5.90); RDW 15.2 % (11.5-15.5); WBC 13.9 k/uL (3.8-10.6); WBC (Perox) 13.96
[2016-08-22 06:02] LABS: Calcium 9.1 mg/dL (8.4-10.2); Magnesium 1.8 mg/dL (1.6-2.3); Phosphorous 4.4 mg/dL (2.5-4.5); Potassium 4.6 mmol/L (3.5-5.1)
[2016-08-22] MEDS: DILTIAZEM 125 MG in SODIUM CHLORIDE 0.9% 100 ML IV SCH (06:22)
[2016-08-22] MEDS: MAGNESIUM SULFATE-D5W PMX 1 GM in DEXTROSE/WATER 1 100ML.BAG IVPB SCH ×2 (06:43→09:39)
--- NOTE | 2016-08-22 07:00 | XR ---
EXAMINATION TYPE: XR chest 1V DATE OF EXAM: 08/22/2016 6:55 AM COMPARISON: [id number] HISTORY: Shortness of TECHNIQUE: Single frontal view of the chest is obtained. FINDINGS: Diffuse bilateral infiltrate and pleural effusion noted. Cardiomegaly and atherosclerotic change. IMPRESSION: 1. Bilateral infiltrates correlate for pneumonia versus pulmonary edema.
--- NOTE | 2016-08-22 07:09 | PN ---
DATE OF SERVICE: 08/21/2016 Mr. Brandon Nunez is a morbidly obese 61-year-old with alcohol intoxication and withdrawal. Patient has been on CIWA protocol. The patient has bilateral pneumonia with acute worsening as noted in the today's chest x-ray. Patient remains on BiPAP though. He is awake, opens eyes. Follows simple commands. He has issues associated with pulling the BiPAP machine and picking his wounds. He has extensive cellulitis of the lower extremities. His both lower extremity wounds are covered with dressing. He has history of MRSA in the wounds. Currently he has been found to have gram-negative bacterial infection. Chest x-ray from today reviewed and did show significant worsening with developing right-sided pleural effusion. He is on currently BiPAP /6 with 50% oxygen at the rate of 12. He is pulling good volume about 800 to 900 mL with a rate ranging in mid teens to low 20s. His last set of vitals include blood pressure is 160/80, respiratory rate 19, pulse is 117, temperature 98, saturation 94% on 5-L oxygen. HEENT EXAMINATION: Oral mucosa is moist. NECK: Supple. Neck veins are prominent. No bruits present. LUNGS: Bilateral poor air entry. Decreased air entry at the bases. HEART: Regular rate and rhythm. ABDOMEN: Soft. Old wound is present in the anterior abdominal wall. EXTREMITIES: Extensive +3 edema with cellulitic changes covered with Christofer wrap at this point in time. The current medications are reviewed and include Tylenol as needed, DuoNeb updraft 4 times a day, cefepime 2 grams. Also on Santyl patch, D5 IV fluid KVO. Also on diltiazem drip, fenofibrate, Proscar, Lasix, Neurontin, Lantus, Xopenex, Habitrol patch, Zofran and thiamine. The culture results and reports are reviewed. Urine culture preliminary obtained yesterday is in progress. No final results are available. The blood cultures no growth. Wound culture is positive for gram-negative bacilli. IMPRESSION: 1. Bilateral pneumonia with developing effusion on the right side with parapneumonic effusion versus effusion related to heart failure, likely acute on chronic systolic and diastolic heart failure. 2. Obesity hypoventilation and obstructive sleep apnea. 3. Severe sepsis, associated with lower extremity cellulitis. Now gram-negative rods are growing. 4. Morbid obesity. Plan is to continue BiPAP each night and p.r.n. during the day. Continue supportive care with that. Continue empiric antibiotics. Will add vancomycin as well. Will obtain ultrasound of the chest to look at the amount of fusion that is developing on the right side. Repeat labs and chest x-ray for tomorrow Continue gentle hydration and rehydration. Monitor renal functions closely for stage III to IV renal failure closely. Other issues include chronic atrial fibrillation, issues associated with thrombocytosis coagulopathy, alcohol intoxication and withdrawal, pulmonary hypertension likely multifactorial. PLAN: As above. Continue n.p.o. status. Further recommendations pending. Prognosis overall is guarded and poor.
[2016-08-22] MEDS: BUDESONIDE 0.5 MG/2 ML NEBU INHALATION SCH ×2 (08:53→19:15)
[2016-08-22] MEDS: LEVALBUTEROL NEB 1.25 MG/3 ML AMP INHALATION SCH ×4 (08:53→19:15)
[2016-08-22 09:41] LABS: Glucose,Whole Blood 95 mg/dL (75-99)
[2016-08-22] MEDS: FUROSEMIDE 10 MG/ML 4 ML VIAL IV SCH ×2 (09:41→20:13)
[2016-08-22] MEDS: CEFEPIME 2 GM in SODIUM CHLORIDE 0.9% 50 ML IVPB SCH ×2 (09:41→20:12)
[2016-08-22] MEDS: SODIUM CHLORIDE 0.9% 1,000 ML IV SCH (09:42)
[2016-08-22] MEDS: PANTOPRAZOLE 40 MG/10 ML VIAL IVP SCH (09:42)
[2016-08-22] MEDS: NICOTINE 21MG/24HR PATCH TRANSDERM SCH (09:42)
[2016-08-22] MEDS: LORazepam 2 MG/ML SYRINGE IV PRN ×6 (11:01→23:47)
[2016-08-22] MEDS: LACTULOSE 200 GM/300 ML (FROM 1/2 GAL JUG) RECTAL SCH ×2 (11:29→12:17)
[2016-08-22] MEDS: THIAMINE 100 MG TAB PO SCH ×2 (12:17→17:27)
[2016-08-22] MEDS: DAPTOmycin 500 MG in SODIUM CHLORIDE 0.9% 50 ML IV SCH (17:26)
[2016-08-22] MEDS: DEXTROSE 5% IN WATER 1,000 ML IV SCH (17:27)
[2016-08-22 18:01] LABS: Glucose,Whole Blood 95 mg/dL (75-99)
[2016-08-22 20:12] LABS: Glucose,Whole Blood 102 mg/dL (75-99)
[2016-08-22] MEDS: INSULIN GLARGINE 100 UNIT/ML 10 ML VIAL SQ SCH (20:15)
[2016-08-22] MEDS: COLLAGENASE 250 UNIT/GM OINTMENT 30 GM TUBE TOPICAL SCH (20:29)
[2016-08-23] MEDS: LACTULOSE 200 GM/300 ML (FROM 1/2 GAL JUG) RECTAL SCH (00:26)
[2016-08-23 00:37] LABS: Glucose,Whole Blood 99 mg/dL (75-99)
[2016-08-23] MEDS: LORazepam 2 MG/ML SYRINGE IV PRN ×8 (01:28→23:39)
[2016-08-23] MEDS: MORPHINE SULFATE 4 MG/ML SYRINGE IV PRN ×5 (02:07→20:22)
[2016-08-23 04:48] LABS: HGB 12.7 gm/dL (13.0-17.5); Macrocytosis Slight
[2016-08-23 04:53] LABS: Basophils # (A) 0.1 k/uL (0-0.2); Basophils % (A) 1 %; CHCM 31.1; Eosinophils # (A) 0.4 k/uL (0-0.7); Eosinophils % (A) 2 %; HCT 39.8 % (39.0-53.0); HDW 3.43; Hypochromasia Moderate; Luc # (Auto) 0.45; Luc % (Auto) 3; Lymphocytes % (A) 6 %; MCH 30.9 pg (25.0-35.0); MCHC 31.8 g/dL (31.0-37.0); Mean Platelet Volume 7.8; Monocytes # (A) 0.9 k/uL (0-1.0); Monocytes % (A) 5 %; Neutrophils # (A) 13.8 k/uL (1.3-7.7); Neutrophils % (A) 83 %; Poikilocytosis Slight; RBC 4.11 m/uL (4.30-5.90); RDW 15.3 % (11.5-15.5); WBC 16.6 k/uL (3.8-10.6); WBC (Perox) 17.66
[2016-08-23 04:54] LABS: MCV 96.9 fL (80.0-100.0)
[2016-08-23 05:16] LABS: Calcium 9.1 mg/dL (8.4-10.2)
[2016-08-23 05:20] LABS: Potassium 5.1 mmol/L (3.5-5.1)
[2016-08-23 05:21] LABS: Phosphorous 3.9 mg/dL (2.5-4.5)
[2016-08-23] MEDS: DILTIAZEM 125 MG in SODIUM CHLORIDE 0.9% 100 ML IV SCH ×2 (06:53→17:39)
[2016-08-23 08:04] LABS: Glucose,Whole Blood 135 mg/dL (75-99)
--- NOTE | 2016-08-23 08:05 | XR ---
EXAMINATION TYPE: XR chest 1V DATE OF EXAM: 08/23/2016 7:14 AM COMPARISON: NONE HISTORY: Shortness of breath TECHNIQUE: Single frontal view of the chest is obtained. FINDINGS: Heart enlarged there is bilateral subsegmental areas of consolidation and small effusion. No pneumothorax. No overt failure. IMPRESSION: 1. Persistent bilateral infiltrate and small effusion with findings suggestive of mild venous congest ion which appears improved.
--- NOTE | 2016-08-23 08:16 | P.PN ---
Subjective Principal diagnosis: Sepsis. This is a continue progress on a 61-year-old white male who had significant altered mental status several days ago and was transferred to the ICU. He still somewhat diminished as far as his cognition. Element of obesity hypoventilation syndrome with end-stage renal disease and element of COPD with diabetes and atrial fibrillation as otherwise noted. Sepsis is noted from cellulitis of the lower extremities. I appreciate freight hustler input. Objective - Vital Signs Vital signs: Vital Signs Temp 98.6 F 08/23/16 04:00 Pulse 105 H 08/23/16 07:00 Resp 21 08/23/16 07:00 BP 139/78 08/23/16 07:00 Pulse Ox 96 08/23/16 07:00 Intake & Output 08/22/16 08/23/16 08/23/16 18:59 06:59 18:59 Intake Total 615 240 20 Output Total 1880 1495 100 Balance -1265 -1255 -80 Weight 174 kg Intake: IV 240 240 20 Dextrose 5% in Water 1, 240 240 20 000 ml @ 20 mls/hr IV . Q24H [facility] Rx#:[id number] Intake, IV Titration 375 Amount Cefepime 2 gm In Sodium 100 Chloride 0.9% 50 ml @ 100 mls/hr IVPB Q12HR [facility] Rx #:[id number] DAPTOmycin 500 mg In 50 Sodium Chloride 0.9% 50 ml @ 100 mls/hr IV Q24H [facility] Rx#:[id number] Diltiazem 125 mg In 125 Sodium Chloride 0.9% 100 ml @ 5 MG/HR 5 mls/hr IV .Q24H [facility] Rx#:[id number] Magnesium Sulfate-D5w Pmx 100 1 gm In Dextrose/Water 1 100ml.bag @ 100 mls/hr IVPB Q1H [facility] Rx#: [id number] Output: Urine 1880 1495 100 Other: Voiding Method Indwelling Catheter Indwelling Catheter # Voids 1 - Constitutional General appearance: Present: obese - EENT Eyes: Absent: anicteric sclerae - Respiratory Respiratory: bilateral: diminished - Cardiovascular Rhythm: irregularly irregular Heart sounds: normal: S1, S2 - Gastrointestinal General gastrointestinal: Present: soft. Absent: tenderness - Integumentary Integumentary: Present: cellulitis - Neurologic Neurologic: Absent: CNII-XII intact - Psychiatric Psychiatric: Absent: A&O x's 3 - Labs CBC & Chem 7: 08/23/16 03:57 08/23/16 03:57 Labs: Abnormal Lab Results - Last 24 Hours (Table) 08/22/16 08/23/16 08/23/16 Range/Units 20:10 03:57 03:57 WBC 16.6 H (3.8-10.6) k/uL RBC 4.11 L (4.30-5.90) m/uL Hgb 12.7 L (13.0-17.5) gm/dL Neutrophils # 13.8 H (1.3-7.7) k/uL Chloride 108 H (98-107) mmol/L BUN 30 H (9-20) mg/dL Creatinine 1.60 H (0.66-1.25) mg/dL Glucose 122 H (74-99) mg/dL POC Glucose (mg/dL) 102 H (75-99) mg/dL 08/23/16 Range/Units 08:02 WBC (3.8-10.6) k/uL RBC (4.30-5.90) m/uL Hgb (13.0-17.5) gm/dL Neutrophils # (1.3-7.7) k/uL Chloride (98-107) mmol/L BUN (9-20) mg/dL Creatinine (0.66-1.25) mg/dL Glucose (74-99) mg/dL POC Glucose (mg/dL) 135 H (75-99) mg/dL Microbiology - Last 24 Hours (Table) 08/20/16 14:50 Blood Culture - Preliminary Blood No Growth after 48 hours 08/19/16 11:30 Gram Stain - Final Heel - Right Wound Culture - Final Citrobacter freundii Enterococcus faecalis VRE Radhika albicans Assessment and Plan (1) Open wound of both legs with complication Status: Acute (2) Cellulitis of left lower extremity Status: Acute (3) Cellulitis of right leg Status: Acute (4) Illiterate Status: Acute (5) Smoking Status: Acute Plan: Continue current supportive care. Check CBC and electrolytes in the a.m. Prognosis is guarded secondary to his multiple comorbidities. See orders otherwise.
[2016-08-23] MEDS: NICOTINE 21MG/24HR PATCH TRANSDERM SCH (08:48)
[2016-08-23] MEDS: FUROSEMIDE 10 MG/ML 4 ML VIAL IV SCH ×2 (08:48→20:15)
[2016-08-23] MEDS: PANTOPRAZOLE 40 MG/10 ML VIAL IVP SCH (08:48)
[2016-08-23] MEDS: CEFEPIME 2 GM in SODIUM CHLORIDE 0.9% 50 ML IVPB SCH ×2 (09:00→20:18)
[2016-08-23] MEDS: LEVALBUTEROL NEB 1.25 MG/3 ML AMP INHALATION SCH ×4 (09:29→20:50)
[2016-08-23] MEDS: BUDESONIDE 0.5 MG/2 ML NEBU INHALATION SCH ×2 (09:29→20:50)
[2016-08-23 10:18] LABS: INR 2.5 (<1.1); Prothrombin Time 23.8 sec (9.0-12.0)
[2016-08-23 11:24] LABS: Calcium 8.9 mg/dL (8.4-10.2); Potassium 4.2 mmol/L (3.5-5.1); Total Protein 6.5 g/dL (6.3-8.2)
[2016-08-23 11:58] LABS: Glucose,Whole Blood 119 mg/dL (75-99)
[2016-08-23] MEDS: THIAMINE 100 MG TAB PO SCH ×2 (12:16→16:40)
[2016-08-23] MEDS: SODIUM CHLORIDE 0.9% 1,000 ML IV SCH (12:42)
[2016-08-23 12:53] LABS: ABG Base Excess 4.3 mmol/L; ABG HCO3 30 mmol/L (21-25); ABG PCO2 55 mmHg (35-45); ABG PH 7.35 (7.35-7.45); ABG PO2 92 mmHg (83-108); ABG TCO2 31 mmol/L (19-24)
--- NOTE | 2016-08-23 13:15 | P.PN ---
Subjective Principal diagnosis: Patient seen and examined. Patient is still on bipap and has been hemodynamically stable. He is on cardizem drip. Ammonia has improved. He is making about 200 cc of urine an hour. His CXR is improving. Mentation slightly improved. Objective - Vital Signs Vital signs: Vital Signs Temp 98.5 F 08/23/16 09:00 Pulse 68 08/23/16 12:00 Resp 15 08/23/16 12:00 BP 146/78 08/23/16 12:00 Pulse Ox 97 08/23/16 12:00 Intake & Output 08/22/16 08/23/16 08/23/16 18:59 06:59 18:59 Intake Total 615 240 230 Output Total 1880 1495 1145 Balance -9134 -7374 -915 Weight 174 kg 174 kg Intake: IV 240 240 130 Dextrose 5% in Water 1, 240 240 120 000 ml @ 20 mls/hr IV . Q24H [facility] Rx#:[id number] Sodium Chloride 0.9% 1, 10 000 ml @ 20 mls/hr IV . Q24H [facility] Rx#:[id number] Intake, IV Titration 375 100 Amount Cefepime 2 gm In Sodium 100 100 Chloride 0.9% 50 ml @ 100 mls/hr IVPB Q12HR [facility] Rx #:[id number] DAPTOmycin 500 mg In 50 Sodium Chloride 0.9% 50 ml @ 100 mls/hr IV Q24H [facility] Rx#:[id number] Diltiazem 125 mg In 125 Sodium Chloride 0.9% 100 ml @ 5 MG/HR 5 mls/hr IV .Q24H [facility] Rx#:[id number] Magnesium Sulfate-D5w Pmx 100 1 gm In Dextrose/Water 1 100ml.bag @ 100 mls/hr IVPB Q1H [facility] Rx#: [id number] Output: Urine 1880 1495 1145 Other: Voiding Method Indwelling Catheter Indwelling Catheter Indwelling Catheter # Voids 1 - Exam Gen.: Patient is on BiPAP, comfortable, arousable, super morbidly obese Cardiovascular: Irregular rate and rhythm, S1/S2 Lungs: Diminished breath sounds at the bases with scattered crackles Abdomen: Soft nontender nondistended positive bowel sounds Extremities: Cellulitis, chronic venous stasis, edema - Labs CBC & Chem 7: 08/23/16 03:57 08/23/16 09:48 Labs: Abnormal Lab Results - Last 24 Hours (Table) 08/22/16 08/23/16 08/23/16 Range/Units 20:10 03:57 03:57 WBC 16.6 H (3.8-10.6) k/uL RBC 4.11 L (4.30-5.90) m/uL Hgb 12.7 L (13.0-17.5) gm/dL Neutrophils # 13.8 H (1.3-7.7) k/uL PT (9.0-12.0) sec ABG pCO2 (35-45) mmHg ABG HCO3 (21-25) mmol/L ABG Total CO2 (19-24) mmol/L Sodium (137-145) mmol/L Chloride 108 H (98-107) mmol/L BUN 30 H (9-20) mg/dL Creatinine 1.60 H (0.66-1.25) mg/dL Glucose 122 H (74-99) mg/dL POC Glucose (mg/dL) 102 H (75-99) mg/dL ALT (21-72) U/L Albumin (3.5-5.0) g/dL 08/23/16 08/23/16 08/23/16 Range/Units 08:02 09:48 09:48 WBC (3.8-10.6) k/uL RBC (4.30-5.90) m/uL Hgb (13.0-17.5) gm/dL Neutrophils # (1.3-7.7) k/uL PT 23.8 H (9.0-12.0) sec ABG pCO2 (35-45) mmHg ABG HCO3 (21-25) mmol/L ABG Total CO2 (19-24) mmol/L Sodium 146 H (137-145) mmol/L Chloride 108 H (98-107) mmol/L BUN 28 H (9-20) mg/dL Creatinine 1.54 H (0.66-1.25) mg/dL Glucose 119 H (74-99) mg/dL POC Glucose (mg/dL) 135 H (75-99) mg/dL ALT 18 L (21-72) U/L Albumin 2.8 L (3.5-5.0) g/dL 08/23/16 08/23/16 Range/Units 09:48 11:57 WBC (3.8-10.6) k/uL RBC (4.30-5.90) m/uL Hgb (13.0-17.5) gm/dL Neutrophils # (1.3-7.7) k/uL PT (9.0-12.0) sec ABG pCO2 55 H (35-45) mmHg ABG HCO3 30 H (21-25) mmol/L ABG Total CO2 31 H (19-24) mmol/L Sodium (137-145) mmol/L Chloride (98-107) mmol/L BUN (9-20) mg/dL Creatinine (0.66-1.25) mg/dL Glucose (74-99) mg/dL POC Glucose (mg/dL) 119 H (75-99) mg/dL ALT (21-72) U/L Albumin (3.5-5.0) g/dL Microbiology - Last 24 Hours (Table) 08/20/16 14:50 Blood Culture - Preliminary Blood No Growth after 48 hours 08/19/16 11:30 Gram Stain - Final Heel - Right Wound Culture - Final Citrobacter freundii Enterococcus faecalis VRE Radhika albicans Assessment and Plan Plan: Acute hypoxic and hypercapnic respiratory failure Acute exacerbation of CHF, diastolic, ejection fraction 60-65% Atrial fibrillation with rapid ventricular response Likely underlying COPD, active tobacco abuse Delirium tremens Coumadin coagulopathy, therapeutic Sepsis Anemia, normochromic normocytic Thrombocytosis Hyperammonemia Question Urinary tract infection Lower extremity cellulitis: polymicrobial Diabetic ulcer DM2 Super morbid obesity, concerning for underlying MACO/OHS Toxic metabolic encephalopathy Acute kidney injury on chronic kidney disease Pulmonary hypertension, moderate to severe, RVSP 53 mmHg Peripheral arterial disease Active tobacco abuse Continue BiPAP Cardizem drip per cardiology team Diuresis, Lasix to twice a day Monitor renal function DC Lactulose Bronchodilators and Pulmicort Antibiotics per ID Wound care CIWA protocol NPO while on bipap, will initiate PPN GI and DVT Prophylaxis: coumadin and Protonix Smoking cessation highly recommended, Nicotine TD Outpatient PSG and pulmonary follow up recommended Prognosis is extremely guarded
[2016-08-23 13:30] LABS: Hemoglobin A1C 6.3 % (4.2-6.1)
--- NOTE | 2016-08-23 13:53 | PN ---
DATE OF SERVICE: 08/21/2016 INTERVAL HISTORY: Mr. Nunez is a 61-year-old male with a known history of morbid obesity, diabetes mellitus, and diabetic foot ulcer and atrial fibrillation and alcohol abuse and nicotine addiction. Was admitted to the hospital with recurrent bilateral lower extremity cellulitis and diabetic foot ulcer. Patient was transferred to ICU due to altered mental status and chest x-ray showed developing pneumonia with right-sided possible parapneumonic effusion. Currently on broad-spectrum antibiotics. Pulmonary is following this patient. Patient cannot provide any history. No fever, no chills. No acute overnight issues. Complete review of systems could not be obtained from the patient. CURRENT MEDICATIONS: Reviewed. PHYSICAL EXAMINATION: A 61-year-old male lying in the bed. Currently sedated and could not provide any history. VITALS: Blood pressure 136/81, pulse is 90, respirations 18, pulse ox 98% on 50% FiO2. HEENT: Atraumatic, normocephalic. Neck is supple. No JVD. CVS EXAM: S1, S2 heard. No murmurs, no gallop. LUNGS: Decreased air entry bilaterally, rhonchi positive. Nonlabored breathing. Abdomen is soft, obese. Bowel sounds are present. GERIATRIC NURSE ASSISTANT: Awake, alert ( ). The patient is currently sitting in a chair and no focal deficit noted. Could not be assessed completely. EXTREMITIES: Bilateral lower extremity edema with cellulitis and diabetic foot ulcer. LABORATORY DATA: WBC 18.0, hemoglobin 11.7, platelets 521, sodium 143, potassium 5.1, chloride 108, bicarb is 25. BUN 31, creatinine 1.57, albumin 2.8. IMPRESSION: 1. Bilateral lower extremity cellulitis and open wounds in both legs. 2. Diabetic foot ulcer. 3. Sepsis/severe sepsis secondary to cellulitis. 4. Bilateral infiltrates with right perihilar and basilar regions due to pneumonia, restrictive pattern with pneumonic effusions. 5. Obesity hypoventilation syndrome and obstructive sleep apnea. 6. Morbid obesity. 7. Atrial fibrillation. 8. Diabetic foot ulcer. 9. Uncontrolled diabetes mellitus. 10. Deep venous thrombosis prophylaxis, currently on Coumadin. DISCUSSION AND PLAN: Patient will be continued on current management including broad-spectrum antibiotics and BiPAP as per Pulmonary. Continue with the GI and DVT prophylaxis. Coumadin monitoring. Pulmonary is following this patient. Prognosis is guarded. Will continue to follow closely. Further recommendations based on the clinical course.
--- NOTE | 2016-08-23 14:26 | PN ---
DATE OF SERVICE: 08/22/2016 INTERVAL HISTORY: Mr. Nunez is a 61-year-old male with a known history of uncontrolled diabetes mellitus and atrial fibrillation and alcohol abuse and nicotine addiction admitted to the hospital with diabetic foot ulcer and cellulitis of the bilateral lower extremity right greater than left. Patient was transferred to ICU due to altered mental status and also found to have bilateral lower lobe infiltrates, currently on broad-spectrum antibiotics and patient is currently on BiPAP machine. Could not provide any history. The patient does have severe sepsis secondary to pneumonia and lower extremity cellulitis. Leukocytosis is slightly improved today. Currently also on Ativan p.r.n. for withdrawal symptoms. Complete review of systems could not be obtained from the patient. The current medications include; Tylenol, Pulmicort, ( ), Santyl, daptomycin, Cardizem drip, fenofibrate, Proscar, Lasix, gabapentin, Lantus, lactulose, lorazepam, CIWA scale, Lopressor, morphine sulfate, Narcan, Zofran, Protonix IV, Flomax and vitamin B1. PHYSICAL EXAMINATION: A 61-year-old male lying in the bed, currently sedated and currently on BiPAP machine. VITALS: Blood pressure is 140/69, pulse is 85, respirations 15, nonlabored, pulse ox is 97% on 50% FiO2 on BiPAP machine. HEENT: Atraumatic, normocephalic. Neck is supple. No JVD. CVS: S1, S2 heard. Irregular, irregular pulse. No murmurs noted. LUNGS: Bilateral decreased breath sounds and rhonchi positive. No wheezing. Nonlabored breathing. ABDOMEN: Soft, obese. Bowel sounds are present. JUDGE CLERK: Patient is currently sedated. No focal deficit noted. EXTREMITIES: Bilateral lower extremity edema, cellulitis and diabetic foot ulcer. PSYCHIATRIC: Could not be assessed completely. LABORATORY DATA: WBC 13.9, hemoglobin 11.8, platelets 438, sodium 143, potassium 4.6, chloride 107, bicarb is 25, BUN 29, creatinine 1.6, ammonia 43. IMPRESSION: 1. Acute metabolic encephalopathy secondary to infection. 2. Severe sepsis secondary to diabetic foot ulcer and cellulitis bilaterally along with pneumonia. 3. Right lower lobe pneumonia with possible parapneumonic effusions. 4. Morbid obesity with body mass index of 51. 5. Atrial fibrillation chronic on anticoagulants with Coumadin. 6. Acute alcohol withdrawal syndrome, currently on CIWA protocol. 7. Uncontrolled diabetes mellitus. 8. Obesity, hypoventilation syndrome with obstructive sleep apnea. 9. Deep venous thrombosis prophylaxis currently on Coumadin. DISCUSSION AND PLAN: Patient will be continued on broad spectrum antibiotics, CIWA protocol for alcohol withdrawals. Continue to monitor closely. Will follow renal function tomorrow. Continue with the GI prophylaxis and the wound care dressing. Wound cultures are growing Enterococcus faecalis, vancomycin-resistant enterococcus and Radhika albicans. Continue with current management and further recommendations based on clinical course.
--- NOTE | 2016-08-23 14:30 | PN ---
Brandon Nunez is a morbidly obese 61-year-old with hypercapnic hypoxic respiratory failure bilateral pneumonia and pleural effusion, being monitored and observed with restrained for ETOH withdrawal and DTs. Patient continued to be intermittently agitated. He is awake though but does require soft wrist restraints. Patient has an extensive cellulitis and sepsis associated with that along with bilateral pneumonia. The patient is a high-risk for oral feeding for aspiration-related complication. In addition to that, patient continues to require the BiPAP machine. Ultrasound of the chest was performed yesterday which I reviewed. A small bilateral pleural effusion is present. Not enough to tap. On evaluation he is on BiPAP, which is 12/6 with a sed rate of 12. Spontaneous tidal volume reading 400 to 500. He remains on 50% oxygen. His oxygen saturation is 94% with blood pressure 110/60, respiratory rate is in mid teens, heart rate is 107. He is afebrile temperature 98.7. HEENT EXAMINATION: Otherwise unremarkable. NECK: Supple. Neck veins are prominent, but no significant JVD is present. No bruits. LUNGS: Bilateral poor entry is present, especially in the bases. HEART: Regular rate and rhythm. S1 and S2 audible. ABDOMEN: Distended, soft. EXTREMITIES: +3 edema with extensive edema and chronic skin changes. Both legs are wrapped with Christofer wrap. NEUROLOGICAL EXAMINATION: Otherwise, awake and alert. The patient is awake. Continue to follow simple commands though and moving all 4 extremities. His medications reviewed and include: 1. Tylenol as needed. 2. Pulmicort 0.5/2 times a day. 3. Cefepime q.12. 4. Also on ( ). 5. Daptomycin 500 mg q.24. 6. Patient is on D5 KVO. 7. Diltiazem is 5 mg an hour. 8. Fenofibrate 160 mg daily. 9. Proscar 5 mg daily. 10. Lasix 40 mg IV q.12. 11. Neurontin 300 mg p.o. 2 times a day. 12. Lantus 60 units daily. 13. Lactulose q.12. 14. Xopenex 4 times a day. 15. Ativan 0.5. 16. As per [facility] Protocol, patient is on K-Mag-Phos replacement protocol. 17. Morphine for pain control. 18. Nicotine patch 21 mg. 19. Protonix. 20. Flomax. 21. Thiamin. Laboratory data reviewed. Sodium is 139, ( ) White cell count is 13,900, hemoglobin 11, hematocrit 40, platelet count of 438,000, sodium is 140, potassium 4.6. BUN and creatinine 29 and 1.6 which is overall stable. His culture results and reports are reviewed. Blood cultures did show no growth. Urine culture recently obtained revealed contaminated sample. Wound culture is positive for enterococcus Citrobacter and Radhika. Chest ultrasound finding as dictated above. Right pleural effusion pocket is about 2 cm in size. Very difficult exam. Chest x-ray performed revealed bilateral infiltrate along with interstitial edema, infiltrate appears to be present, more at the bases. IMPRESSION: 1. Extensive cellulitis lower extremity with sepsis. 2. Bilateral pneumonia, likely mixed bacterial and gram-negative, patient is on broad-spectrum antibiotics in the form of cefepime with daptomycin. 3. Bilateral pleural effusion, mostly on the right side, but not enough to tap, likely related to multifactorial process. 4. Bilateral pneumonia. 5. Morbid obesity, hypercapnic respiratory failure. PLAN: Include is to continue breathing treatments and antibiotics, maintain patient on DVT and peptic ulcer disease prophylaxis. Continue antibiotics as addition of Vanco followed by daptomycin, appears to have improved infiltrate as well as leukocytosis. Other issues include chronic renal failure, stage III being monitored and observed. ( ) stable, ( ) some improvement seen. Impaired nutritional status with strip protein calorie malnourishment ( ) baseline chronic alcoholism as with limited ( ), given mental status and being required on BiPAP machine The patient has been attempted to come off of BiPAP but; however, not desaturating. We will continue BiPAP for now. Continue current supportive care. Prognosis overall is guarded. Critical care time 35 minutes. Care plan discussed with staff at length. In case if patient unable to feed, need to consider alternative nutritional support either by Dobbhoff tube or TPN.
[2016-08-23] MEDS: DAPTOmycin 500 MG in SODIUM CHLORIDE 0.9% 50 ML IV SCH (15:45)
[2016-08-23] MEDS ORDERED: MVI, ADULT NO.4 WITH VIT K 10 ML, TRACE (CONC-1ML/DOSE) 1 ML, SODIUM ACETATE 20 MEQ, PO... IV ONE ×8 (16:00)
[2016-08-23 16:35] LABS: Glucose,Whole Blood 90 mg/dL (75-99)
[2016-08-23] MEDS: DEXTROSE 5% IN WATER 1,000 ML IV SCH (16:40)
[2016-08-23] MEDS: FAT EMULSION 20% 250 ML in EMPTY BAG 1 BAG IV SCH (17:38)
[2016-08-23 19:12] LABS: Calcium 8.9 mg/dL (8.4-10.2); Magnesium 1.9 mg/dL (1.6-2.3); Potassium 4.2 mmol/L (3.5-5.1)
[2016-08-23] MEDS ORDERED: Magnesium Replacement Protocol 1 EACH MISC MISCELLANE PRN (19:59)
[2016-08-23 20:10] LABS: Glucose,Whole Blood 146 mg/dL (75-99)
[2016-08-23] MEDS: MAGNESIUM SULFATE-D5W PMX 1 GM in DEXTROSE/WATER 1 100ML.BAG IVPB SCH ×2 (20:25→21:28)
[2016-08-23] MEDS: INSULIN GLARGINE 100 UNIT/ML 10 ML VIAL SQ SCH (20:31)
[2016-08-23] MEDS: COLLAGENASE 250 UNIT/GM OINTMENT 30 GM TUBE TOPICAL SCH (20:38)
[2016-08-24 00:10] LABS: Glucose,Whole Blood 166 mg/dL (75-99)
[2016-08-24] MEDS: MORPHINE SULFATE 4 MG/ML SYRINGE IV PRN ×5 (00:11→21:16)
[2016-08-24 05:29] LABS: Glucose,Whole Blood 141 mg/dL (75-99)
[2016-08-24] MEDS: LORazepam 2 MG/ML SYRINGE IV PRN ×4 (05:35→21:16)
[2016-08-24 05:58] LABS: Basophils # (A) 0.1 k/uL (0-0.2); Basophils % (A) 1 %; CH 29.5; Eosinophils # (A) 0.4 k/uL (0-0.7); Eosinophils % (A) 3 %; HCT 40.6 % (39.0-53.0); HDW 3.32; Hypochromasia Marked; Luc # (Auto) 0.25; Luc % (Auto) 2; Lymphocytes # (A) 0.9 k/uL (1.0-4.8); Lymphocytes % (A) 6 %; MCH 29.3 pg (25.0-35.0); MCHC 29.7 g/dL (31.0-37.0); MCV 98.8 fL (80.0-100.0); Macrocytosis Slight; Mean Platelet Volume 6.9; Monocytes # (A) 0.7 k/uL (0-1.0); Monocytes % (A) 5 %; Neutrophils # (A) 12.3 k/uL (1.3-7.7); Neutrophils % (A) 84 %; RBC 4.11 m/uL (4.30-5.90); RDW 15.1 % (11.5-15.5); WBC 14.6 k/uL (3.8-10.6); WBC (Perox) 14.67
[2016-08-24 06:11] LABS: INR 1.9 (<1.1); Partial Thromboplastin Time 33.1 sec (22.0-30.0); Prothrombin Time 18.1 sec (9.0-12.0)
[2016-08-24 06:12] LABS: Calcium 8.9 mg/dL (8.4-10.2); Magnesium 2.1 mg/dL (1.6-2.3); Phosphorous 2.9 mg/dL (2.5-4.5); Potassium 3.6 mmol/L (3.5-5.1); Total Bilirubin 0.9 mg/dL (0.2-1.3); Total Protein 6.1 g/dL (6.3-8.2)
[2016-08-24] MEDS ORDERED: Potassium Replacement Protocol 1 EACH MISC MISCELLANE PRN ×2 (06:25→06:27)
[2016-08-24] MEDS ORDERED: POTASSIUM CHLORIDE 10 MEQ in WATER FOR INJECTION 1 100ML.BAG IVPB SCH (06:30)
[2016-08-24 07:58] LABS: Glucose,Whole Blood 178 mg/dL (75-99)
--- NOTE | 2016-08-24 07:59 | P.PN ---
Subjective Principal diagnosis: Sepsis. This is a continue progress on a 61-year-old white male essentially meant for sepsis secondary cellulitis. He still somewhat lethargic. He is agitated once he arouses and needs Ativan. He is satting appropriately however. I had a long discussion with care team/nurse today about his background information. No new voiding difficulty stated. Objective - Vital Signs Vital signs: Vital Signs Temp 98.6 F 08/24/16 04:00 Pulse 78 08/24/16 07:00 Resp 12 08/24/16 07:00 BP 123/77 08/24/16 07:00 Pulse Ox 96 08/24/16 07:00 Intake & Output 08/23/16 08/24/16 08/24/16 18:59 06:59 18:59 Intake Total 798.693 6846 Output Total 2095 2600 Balance -1456.333 -1197 Weight 174 kg 150.8 kg Intake: IV 260 260 Dextrose 5% in Water 1, 240 260 000 ml @ 20 mls/hr IV . Q24H [facility] Rx#:[id number] Sodium Chloride 0.9% 1, 10 000 ml @ 10 mls/hr IV . Q24H [facility] Rx#:[id number] Sodium Chloride 0.9% 1, 10 000 ml @ 200 mls/hr IV . Q5H [facility] Rx#:[id number] Intake, IV Titration 580.770 1878 Amount Cefepime 2 gm In Sodium 100 100 Chloride 0.9% 50 ml @ 100 mls/hr IVPB Q12HR [facility] Rx #:[id number] Diltiazem 125 mg In 107.667 Sodium Chloride 0.9% 100 ml @ 5 MG/HR 5 mls/hr IV .Q24H [facility] Rx#:[id number] Fat Emulsion 20% 250 ml 21 273 In Empty Bag 1 bag @ 21 mls/hr IV DAILY@1800 [facility] Rx#:[id number] Magnesium Sulfate-D5w Pmx 100 1 gm In Dextrose/Water 1 100ml.bag @ 100 mls/hr IVPB Q1H [facility] Rx#: [id number] Mvi, Adult No.4 with Vit 100 100 K 10 ml Trace (Conc-1Ml/ Dose) 1 ml Sodium Acetate 20 meq Potassium Chloride 8 meq Magnesium Sulfate 4 meq Calcium Gluconate 500 mg Potassium Phosphate 10 mmol In Amino Acid 4.25%- D10w 1,000 ml @ 50 mls/hr IV .[id number] [facility] Rx#: [id number] Mvi, Adult No.4 with Vit 550 K 10 ml Trace (Conc-1Ml/ Dose) 1 ml Sodium Acetate 20 meq Potassium Chloride 8 meq Magnesium Sulfate 4 meq Potassium Phosphate 10 mmol Calcium Gluconate 500 mg In Amino Acid 4.25%-D10w 1, 000 ml @ 100 mls/hr IV . BY DURATION [facility] Rx#: [id number] Sodium Chloride 0.9% 1, 50 20 000 ml @ 10 mls/hr IV . Q24H [facility] Rx#:[id number] Output: Urine 2095 2600 Other: Voiding Method Indwelling Catheter Indwelling Catheter - Constitutional General appearance: Present: obese - EENT Eyes: Absent: abnormal pupil - Respiratory Respiratory: bilateral: diminished - Cardiovascular Rhythm: irregularly irregular Heart sounds: normal: S1, S2 - Gastrointestinal General gastrointestinal: Present: soft. Absent: tenderness - Labs CBC & Chem 7: 08/24/16 05:38 08/24/16 05:38 Labs: Abnormal Lab Results - Last 24 Hours (Table) 08/23/16 08/23/16 08/23/16 Range/Units 08:02 09:48 09:48 WBC (3.8-10.6) k/uL RBC (4.30-5.90) m/uL Hgb (13.0-17.5) gm/dL MCHC (31.0-37.0) g/dL Plt Count (150-450) k/uL Neutrophils # (1.3-7.7) k/uL Lymphocytes # (1.0-4.8) k/uL PT 23.8 H (9.0-12.0) sec APTT (22.0-30.0) sec ABG pCO2 (35-45) mmHg ABG HCO3 (21-25) mmol/L ABG Total CO2 (19-24) mmol/L Sodium (137-145) mmol/L Chloride (98-107) mmol/L Carbon Dioxide (22-30) mmol/L BUN (9-20) mg/dL Creatinine (0.66-1.25) mg/dL Glucose (74-99) mg/dL POC Glucose (mg/dL) 135 H (75-99) mg/dL Hemoglobin A1c 6.3 H (4.2-6.1) % AST (17-59) U/L ALT (21-72) U/L Total Protein (6.3-8.2) g/dL Albumin (3.5-5.0) g/dL Triglycerides (<150) mg/dL 08/23/16 08/23/16 08/23/16 Range/Units 09:48 09:48 09:48 WBC (3.8-10.6) k/uL RBC (4.30-5.90) m/uL Hgb (13.0-17.5) gm/dL MCHC (31.0-37.0) g/dL Plt Count (150-450) k/uL Neutrophils # (1.3-7.7) k/uL Lymphocytes # (1.0-4.8) k/uL PT (9.0-12.0) sec APTT (22.0-30.0) sec ABG pCO2 55 H (35-45) mmHg ABG HCO3 30 H (21-25) mmol/L ABG Total CO2 31 H (19-24) mmol/L Sodium 146 H (137-145) mmol/L Chloride 108 H (98-107) mmol/L Carbon Dioxide (22-30) mmol/L BUN 28 H (9-20) mg/dL Creatinine 1.54 H (0.66-1.25) mg/dL Glucose 119 H (74-99) mg/dL POC Glucose (mg/dL) (75-99) mg/dL Hemoglobin A1c (4.2-6.1) % AST (17-59) U/L ALT 18 L (21-72) U/L Total Protein (6.3-8.2) g/dL Albumin 2.8 L (3.5-5.0) g/dL Triglycerides 203 H (<150) mg/dL 08/23/16 08/23/16 08/23/16 Range/Units 11:57 18:00 20:09 WBC (3.8-10.6) k/uL RBC (4.30-5.90) m/uL Hgb (13.0-17.5) gm/dL MCHC (31.0-37.0) g/dL Plt Count (150-450) k/uL Neutrophils # (1.3-7.7) k/uL Lymphocytes # (1.0-4.8) k/uL PT (9.0-12.0) sec APTT (22.0-30.0) sec ABG pCO2 (35-45) mmHg ABG HCO3 (21-25) mmol/L ABG Total CO2 (19-24) mmol/L Sodium (137-145) mmol/L Chloride 108 H (98-107) mmol/L Carbon Dioxide (22-30) mmol/L BUN 28 H (9-20) mg/dL Creatinine 1.50 H (0.66-1.25) mg/dL Glucose 127 H (74-99) mg/dL POC Glucose (mg/dL) 119 H 146 H (75-99) mg/dL Hemoglobin A1c (4.2-6.1) % AST (17-59) U/L ALT (21-72) U/L Total Protein (6.3-8.2) g/dL Albumin (3.5-5.0) g/dL Triglycerides (<150) mg/dL 08/24/16 08/24/16 08/24/16 Range/Units 00:09 05:26 05:38 WBC 14.6 H (3.8-10.6) k/uL RBC 4.11 L (4.30-5.90) m/uL Hgb 12.0 L (13.0-17.5) gm/dL MCHC 29.7 L (31.0-37.0) g/dL Plt Count 481 H (150-450) k/uL Neutrophils # 12.3 H (1.3-7.7) k/uL Lymphocytes # 0.9 L (1.0-4.8) k/uL PT (9.0-12.0) sec APTT (22.0-30.0) sec ABG pCO2 (35-45) mmHg ABG HCO3 (21-25) mmol/L ABG Total CO2 (19-24) mmol/L Sodium (137-145) mmol/L Chloride (98-107) mmol/L Carbon Dioxide (22-30) mmol/L BUN (9-20) mg/dL Creatinine (0.66-1.25) mg/dL Glucose (74-99) mg/dL POC Glucose (mg/dL) 166 H 141 H (75-99) mg/dL Hemoglobin A1c (4.2-6.1) % AST (17-59) U/L ALT (21-72) U/L Total Protein (6.3-8.2) g/dL Albumin (3.5-5.0) g/dL Triglycerides (<150) mg/dL 08/24/16 08/24/16 Range/Units 05:38 05:38 WBC (3.8-10.6) k/uL RBC (4.30-5.90) m/uL Hgb (13.0-17.5) gm/dL MCHC (31.0-37.0) g/dL Plt Count (150-450) k/uL Neutrophils # (1.3-7.7) k/uL Lymphocytes # (1.0-4.8) k/uL PT 18.1 H (9.0-12.0) sec APTT 33.1 H (22.0-30.0) sec ABG pCO2 (35-45) mmHg ABG HCO3 (21-25) mmol/L ABG Total CO2 (19-24) mmol/L Sodium (137-145) mmol/L Chloride (98-107) mmol/L Carbon Dioxide 32 H (22-30) mmol/L BUN 28 H (9-20) mg/dL Creatinine 1.50 H (0.66-1.25) mg/dL Glucose 167 H (74-99) mg/dL POC Glucose (mg/dL) (75-99) mg/dL Hemoglobin A1c (4.2-6.1) % AST 15 L (17-59) U/L ALT (21-72) U/L Total Protein 6.1 L (6.3-8.2) g/dL Albumin 2.6 L (3.5-5.0) g/dL Triglycerides (<150) mg/dL Microbiology - Last 24 Hours (Table) 08/20/16 14:50 Blood Culture - Preliminary Blood No Growth after 72 hours Assessment and Plan (1) Open wound of both legs with complication Status: Acute (2) Cellulitis of left lower extremity Status: Acute (3) Cellulitis of right leg Status: Acute (4) Illiterate Status: Acute (5) Smoking Status: Acute Plan: Continue supportive care. Feeding issue will become paramount in the next several days if he does not become more coherent. Otherwise, the patient probably needs some form of PICC versus central line. Check CBC and CMP in the a.m. Check portable chest also. Time with Patient: Greater than 30
[2016-08-24] MEDS: CEFEPIME 2 GM in SODIUM CHLORIDE 0.9% 50 ML IVPB SCH ×2 (08:16→20:16)
[2016-08-24] MEDS: FUROSEMIDE 10 MG/ML 4 ML VIAL IV SCH ×3 (08:19→21:05)
[2016-08-24] MEDS: NICOTINE 21MG/24HR PATCH TRANSDERM SCH (08:19)
[2016-08-24] MEDS: PANTOPRAZOLE 40 MG/10 ML VIAL IVP SCH (08:19)
--- NOTE | 2016-08-24 08:26 | XR ---
EXAMINATION TYPE: XR chest 1V DATE OF EXAM: 08/24/2016 6:22 AM COMPARISON: 08/23/2016 HISTORY: Respiratory difficult TECHNIQUE: Single frontal view of the chest is obtained. FINDINGS: Persistent bilateral areas of subsegmental consolidation and tiny effusion. Correlate for mild venous congestion. No pneumothorax. Heart is enlarged. IMPRESSION: Stable x-ray with bilateral infiltrate correlate for mild venous congestion.
[2016-08-24] MEDS: POTASSIUM CHLORIDE 10 MEQ, LIDOCAINE 2% INJ 10 MG in SODIUM CHLORIDE 0.9% 100 ML IV SCH ×2 (08:41→10:25)
[2016-08-24] MEDS: LEVALBUTEROL NEB 1.25 MG/3 ML AMP INHALATION SCH ×4 (09:07→21:12)
[2016-08-24] MEDS: BUDESONIDE 0.5 MG/2 ML NEBU INHALATION SCH ×2 (09:07→21:12)
[2016-08-24] MEDS ORDERED: LIDOCAINE 2% INJ 20 MG/ML SQ ONE (09:41)
--- NOTE | 2016-08-24 10:05 | XR ---
EXAMINATION TYPE: XR chest 1V portable DATE OF EXAM: 08/24/2016 9:58 AM COMPARISON: 08/24/2016 HISTORY: PICC line placement FINDINGS: There are bilateral pleural effusions with cardiomegaly and bibasilar infiltrate. There is a diffuse interstitial pattern. PICC line appears in good position. Chronic rib deformities are seen and there is arthropathy of the shoulders. IMPRESSION: 1. PICC line in good position. 2. Diffuse airspace disease appears progressed bilateral effusions correlate for diffuse pneumonia ve rsus CHF.
--- NOTE | 2016-08-24 10:26 | IR ---
PICC LINE PLACEMENT: HISTORY: Infection requiring long-term antibiotic therapy PROCEDURE: Ultrasound guidance of PICC line placement. COMPLICATIONS: None ANESTHESIA: 1. 1% Lidocaine locally. FINDINGS/TECHNIQUE: The procedure was explained to the patient. The risks, complications, benefits and alternatives were discussed and any questions were answered. Informed consent was obtained. The patient was placed supine on the fluoroscopic table and prepped and draped in the usual sterile fash ion. Utilizing a 21 gauge needle and sonographic guidance, access in the left basilic vein was achi eved and there is placement of a 0.018 guidewire. The vein is patent. A 5-F. sheath was placed over the guidewire. The guidewire and dilator were removed and a 5-F. Double lumen PICC line was placed through the sheath with the chest x-ray confirming the tip at the level of the SVC. The sheath was r emoved, the catheter was flushed and sutured into position. The patient was stable throughout the pr ocedure and remained stable upon discharge from the Department of Radiology. The vein puncture was patent under ultrasound. A flores scale image was obtained to document patency of the vein punctured. All elements of the maximal barrier technique were utilized. IMPRESSION: 1. Successful PICC line placement under ultrasound performed bedside within the ICU.
[2016-08-24 11:45] LABS: Glucose,Whole Blood 151 mg/dL (75-99)
[2016-08-24] MEDS: THIAMINE 100 MG TAB PO SCH ×2 (11:45→17:19)
[2016-08-24] MEDS ORDERED: MVI, ADULT NO.4 WITH VIT K 10 ML, TRACE (CONC-1ML/DOSE) 1 ML, PARENTERAL ELECTROLYTES 2... IV SCH ×4 (14:00)
[2016-08-24] MEDS: SODIUM CHLORIDE 0.9% 1,000 ML IV SCH (14:22)
[2016-08-24] MEDS: INSULIN LISPRO (humaLOG) 300 UNIT/3 ML VIAL SQ SCH ×3 (14:23→20:16)
[2016-08-24] MEDS: DAPTOmycin 500 MG in SODIUM CHLORIDE 0.9% 50 ML IV SCH (14:32)
--- NOTE | 2016-08-24 14:48 | P.PN ---
Subjective Principal diagnosis: DTs, afib with rvr Patient seen and examined. Patient is on bipap and moans when aroused. He will answer some yes and no questions. He is having adequate urine output. He is unable to tolerate diet at this time. PICC line was placed this morning. Objective - Vital Signs Vital signs: Vital Signs Temp 98.3 F 08/24/16 08:00 Pulse 92 08/24/16 14:00 Resp 13 08/24/16 14:00 BP 126/75 08/24/16 14:00 Pulse Ox 93 L 08/24/16 14:00 Intake & Output 08/23/16 08/24/16 08/24/16 18:59 06:59 18:59 Intake Total 147.542 9288 690 Output Total 2095 2600 1095 Balance -1456.333 -1197 -405 Weight 174 kg 150.8 kg 150.8 kg Intake: IV 260 260 80 Dextrose 5% in Water 1, 240 260 80 000 ml @ 20 mls/hr IV . Q24H [facility] Rx#:[id number] Sodium Chloride 0.9% 1, 10 000 ml @ 10 mls/hr IV . Q24H [facility] Rx#:[id number] Sodium Chloride 0.9% 1, 10 000 ml @ 200 mls/hr IV . Q5H [facility] Rx#:[id number] Intake, IV Titration 331.147 3266 610 Amount Cefepime 2 gm In Sodium 100 100 50 Chloride 0.9% 50 ml @ 100 mls/hr IVPB Q12HR [facility] Rx #:[id number] Diltiazem 125 mg In 107.667 Sodium Chloride 0.9% 100 ml @ 5 MG/HR 5 mls/hr IV .Q24H [facility] Rx#:[id number] Fat Emulsion 20% 250 ml 21 273 In Empty Bag 1 bag @ 21 mls/hr IV DAILY@1800 [facility] Rx#:[id number] Magnesium Sulfate-D5w Pmx 100 1 gm In Dextrose/Water 1 100ml.bag @ 100 mls/hr IVPB Q1H [facility] Rx#: [id number] Mvi, Adult No.4 with Vit 100 100 320 K 10 ml Trace (Conc-1Ml/ Dose) 1 ml Sodium Acetate 20 meq Potassium Chloride 8 meq Magnesium Sulfate 4 meq Calcium Gluconate 500 mg Potassium Phosphate 10 mmol In Amino Acid 4.25%- D10w 1,000 ml @ 50 mls/hr IV .[id number] Rx#: [id number] Mvi, Adult No.4 with Vit 550 K 10 ml Trace (Conc-1Ml/ Dose) 1 ml Sodium Acetate 20 meq Potassium Chloride 8 meq Magnesium Sulfate 4 meq Potassium Phosphate 10 mmol Calcium Gluconate 500 mg In Amino Acid 4.25%-D10w 1, 000 ml @ 100 mls/hr IV . BY D[facility]ATION [facility] Rx#: [id number] Potassium Chloride 10 meq 200 Lidocaine 2% Inj 10 mg In Sodium Chloride 0.9% 100 ml @ 100 mls/hr IV Q1HR [facility] Rx#:[id number] Sodium Chloride 0.9% 1, 50 20 40 000 ml @ 10 mls/hr IV . Q24H [facility] Rx#:[id number] Output: Urine 2095 2600 1095 Other: Voiding Method Indwelling Catheter Indwelling Catheter Indwelling Catheter # Voids 1 - Exam Gen.: Patient is on BiPAP, comfortable, arousable, super morbidly obese Cardiovascular: Irregular rate and rhythm, S1/S2 Lungs: Diminished breath sounds at the bases with scattered crackles Abdomen: Soft nontender nondistended positive bowel sounds Extremities: Cellulitis, chronic venous stasis, edema - Labs CBC & Chem 7: 08/24/16 05:38 08/24/16 05:38 Labs: Abnormal Lab Results - Last 24 Hours (Table) 08/23/16 08/23/16 08/23/16 Range/Units 09:48 18:00 20:09 WBC (3.8-10.6) k/uL RBC (4.30-5.90) m/uL Hgb (13.0-17.5) gm/dL MCHC (31.0-37.0) g/dL Plt Count (150-450) k/uL Neutrophils # (1.3-7.7) k/uL Lymphocytes # (1.0-4.8) k/uL PT (9.0-12.0) sec APTT (22.0-30.0) sec Chloride 108 H (98-107) mmol/L Carbon Dioxide (22-30) mmol/L BUN 28 H (9-20) mg/dL Creatinine 1.50 H (0.66-1.25) mg/dL Glucose 127 H (74-99) mg/dL POC Glucose (mg/dL) 146 H (75-99) mg/dL AST (17-59) U/L Total Protein (6.3-8.2) g/dL Albumin (3.5-5.0) g/dL Triglycerides 203 H (<150) mg/dL 08/24/16 08/24/16 08/24/16 Range/Units 00:09 05:26 05:38 WBC 14.6 H (3.8-10.6) k/uL RBC 4.11 L (4.30-5.90) m/uL Hgb 12.0 L (13.0-17.5) gm/dL MCHC 29.7 L (31.0-37.0) g/dL Plt Count 481 H (150-450) k/uL Neutrophils # 12.3 H (1.3-7.7) k/uL Lymphocytes # 0.9 L (1.0-4.8) k/uL PT (9.0-12.0) sec APTT (22.0-30.0) sec Chloride (98-107) mmol/L Carbon Dioxide (22-30) mmol/L BUN (9-20) mg/dL Creatinine (0.66-1.25) mg/dL Glucose (74-99) mg/dL POC Glucose (mg/dL) 166 H 141 H (75-99) mg/dL AST (17-59) U/L Total Protein (6.3-8.2) g/dL Albumin (3.5-5.0) g/dL Triglycerides (<150) mg/dL 08/24/16 08/24/16 08/24/16 Range/Units 05:38 05:38 07:57 WBC (3.8-10.6) k/uL RBC (4.30-5.90) m/uL Hgb (13.0-17.5) gm/dL MCHC (31.0-37.0) g/dL Plt Count (150-450) k/uL Neutrophils # (1.3-7.7) k/uL Lymphocytes # (1.0-4.8) k/uL PT 18.1 H (9.0-12.0) sec APTT 33.1 H (22.0-30.0) sec Chloride (98-107) mmol/L Carbon Dioxide 32 H (22-30) mmol/L BUN 28 H (9-20) mg/dL Creatinine 1.50 H (0.66-1.25) mg/dL Glucose 167 H (74-99) mg/dL POC Glucose (mg/dL) 178 H (75-99) mg/dL AST 15 L (17-59) U/L Total Protein 6.1 L (6.3-8.2) g/dL Albumin 2.6 L (3.5-5.0) g/dL Triglycerides (<150) mg/dL 08/24/16 Range/Units 11:43 WBC (3.8-10.6) k/uL RBC (4.30-5.90) m/uL Hgb (13.0-17.5) gm/dL MCHC (31.0-37.0) g/dL Plt Count (150-450) k/uL Neutrophils # (1.3-7.7) k/uL Lymphocytes # (1.0-4.8) k/uL PT (9.0-12.0) sec APTT (22.0-30.0) sec Chloride (98-107) mmol/L Carbon Dioxide (22-30) mmol/L BUN (9-20) mg/dL Creatinine (0.66-1.25) mg/dL Glucose (74-99) mg/dL POC Glucose (mg/dL) 151 H (75-99) mg/dL AST (17-59) U/L Total Protein (6.3-8.2) g/dL Albumin (3.5-5.0) g/dL Triglycerides (<150) mg/dL Microbiology - Last 24 Hours (Table) 08/20/16 14:50 Blood Culture - Preliminary Blood No Growth after 72 hours Assessment and Plan Plan: Acute hypoxic and hypercapnic respiratory failure Acute exacerbation of CHF, diastolic, ejection fraction 60-65% Atrial fibrillation with rapid ventricular response Likely underlying COPD, active tobacco abuse Delirium tremens Coumadin coagulopathy, therapeutic Sepsis Anemia, normochromic normocytic Thrombocytosis Hyperammonemia Question Urinary tract infection Lower extremity cellulitis: polymicrobial Diabetic ulcer DM2 Super morbid obesity, concerning for underlying MACO/OHS Toxic metabolic encephalopathy Acute kidney injury on chronic kidney disease Pulmonary hypertension, moderate to severe, RVSP 53 mmHg Peripheral arterial disease Active tobacco abuse Continue BiPAP, ok to trial off for short periods of time Cardizem drip per cardiology team Diuresis, Lasix three times a day Monitor renal function Serial CXR DC Lactulose, monitor ammonia level Bronchodilators and Pulmicort Antibiotics per ID Wound care CIWA protocol NPO while on bipap, will initiate TPN GI and DVT Prophylaxis: Protonix Monitor INR - likely start heparin drip tomorrow, INR today is 1.9, pt unable to take coumadin PO Smoking cessation highly recommended, Nicotine TD Outpatient PSG and pulmonary follow up recommended Prognosis is extremely guarded Progress has been slow
[2016-08-24] MEDS: COLLAGENASE 250 UNIT/GM OINTMENT 30 GM TUBE TOPICAL SCH (16:22)
[2016-08-24 16:23] LABS: Glucose,Whole Blood 170 mg/dL (75-99)
[2016-08-24] MEDS: FAT EMULSION 20% 250 ML in EMPTY BAG 1 BAG IV SCH (18:13)
[2016-08-24] MEDS: DILTIAZEM 125 MG in SODIUM CHLORIDE 0.9% 100 ML IV SCH (18:14)
[2016-08-24 20:16] LABS: Glucose,Whole Blood 143 mg/dL (75-99)
[2016-08-24] MEDS: INSULIN GLARGINE 100 UNIT/ML 10 ML VIAL SQ SCH (20:28)
[2016-08-24 22:30] LABS: Magnesium 1.9 mg/dL (1.6-2.3)
--- NOTE | 2016-08-24 22:55 | P.PN ---
Subjective Principal diagnosis: fever cellulitis 61-year-old male with a long-standing history of diabetes mellitus type 2 poorly controlled as well as coronary artery disease congestive heart failure and chronic lower extremity edema. He was recently hospitalized without evidence of an infection to his left leg and heel. He was seen by vascular surgery has been following the wound center. The patient has been on antibiotic therapy with ciprofloxacin. For the isolated pathogens. The patient relates in the days before coming to hospital he started to feel ill. Increasing weakness. Increasing swelling and redness to the leg. An increasing over the left heel. His was trying to get him to come to the hospital for days before he finally came because he became so weak that he could no longer object. Upon arrival to the emergency center temperature 102.2 was noted. He was also having difficulty with worsening arrhythmia with his atrial fibrillation having a rapid ventricular response. He has been seen by cardiology. And there is been improvement of his uncontrolled rhythm. He still feels poorly. He's had fever which is feeling slightly better at this time still has chills. Is concerned about the ongoing ulceration to his left heel. He relates that he has not been offloading it. He can't wear any shoes causes his legs are so swollen. Spends his time in a lazy- boy recliner when he is at home. His had a further decline of his status. He was transferred to the intensive care unit. He had BiPAP in place for worsening respiratory status. The patient became somewhat uncooperative and somnolent. And as noted the patient' s related that he was a heavy drinker. He is on the CIWA protocol and Ativan is being weaned. He is showing improvement Patient is currently comfortable in the intensive care unit with BiPAP at night. Using only 02. Quite a bit improved from the last evaluation. Urine output is adequate. No vasopressor therapy. Objective - Vital Signs Vital signs: Vital Signs Temp 98.5 F 08/24/16 20:00 Pulse 76 08/24/16 22:00 Resp 16 08/24/16 22:00 BP 111/63 08/24/16 22:00 Pulse Ox 93 L 08/24/16 22:00 Intake & Output 08/24/16 08/24/16 08/25/16 06:59 18:59 06:59 Intake Total 1528 911 284 Output Total 8900 8320 575 Balance -1072 -759 -291 Weight 150.8 kg 150.8 kg Intake: IV 260 80 Dextrose 5% in Water 1, 260 80 000 ml @ 20 mls/hr IV . Q24H [facility] Rx#:[id number] Intake, IV Titration 1268 831 284 Amount Cefepime 2 gm In Sodium 100 50 50 Chloride 0.9% 50 ml @ 100 mls/hr IVPB Q12HR [facility] Rx #:[id number] DAPTOmycin 500 mg In 50 Sodium Chloride 0.9% 50 ml @ 100 mls/hr IV Q24H [facility] Rx#:[id number] Diltiazem 125 mg In 125 Sodium Chloride 0.9% 100 ml @ 5 MG/HR 5 mls/hr IV .Q24H [facility] Rx#:[id number] Fat Emulsion 20% 250 ml 273 21 84 In Empty Bag 1 bag @ 21 mls/hr IV DAILY@1800 [facility] Rx#:[id number] Magnesium Sulfate-D5w Pmx 100 1 gm In Dextrose/Water 1 100ml.bag @ 100 mls/hr IVPB Q1H [facility] Rx#: [id number] Mvi, Adult No.4 with Vit 120 120 K 10 ml Trace (Conc-1Ml/ Dose) 1 ml Parenteral Electrolytes 20 ml In Amino Acid 5%-D25w 1,000 ml @ 30 mls/hr IV .Q24H [facility] Rx#:[id number] Mvi, Adult No.4 with Vit 100 320 K 10 ml Trace (Conc-1Ml/ Dose) 1 ml Sodium Acetate 20 meq Potassium Chloride 8 meq Magnesium Sulfate 4 meq Calcium Gluconate 500 mg Potassium Phosphate 10 mmol In Amino Acid 4.25%- D10w 1,000 ml @ 50 mls/hr IV .[id number] [facility] Rx#: [id number] Mvi, Adult No.4 with Vit 550 K 10 ml Trace (Conc-1Ml/ Dose) 1 ml Sodium Acetate 20 meq Potassium Chloride 8 meq Magnesium Sulfate 4 meq Potassium Phosphate 10 mmol Calcium Gluconate 500 mg In Amino Acid 4.25%-D10w 1, 000 ml @ 100 mls/hr IV . BY DURATION [facility] Rx#: [id number] Potassium Chloride 10 meq 200 Lidocaine 2% Inj 10 mg In Sodium Chloride 0.9% 100 ml @ 100 mls/hr IV Q1HR [facility] Rx#:[id number] Sodium Chloride 0.9% 1, 20 70 30 000 ml @ 10 mls/hr IV . Q24H [facility] Rx#:[id number] Output: Urine 2600 1670 575 Other: Voiding Method Indwelling Catheter Indwelling Catheter Indwelling Catheter # Voids 1 - Exam 61 year-old male who suffers from obesity. Seems to be modestly uncomfortable at this time. Of note upon entry he has his meal in front of him. He struggling to figure out where his silver is at although it is wrapped in a napkin on his tray. Does not appear to have a new acute visual change. HEENT: Anicteric conjunctiva are pink and moist nasal mucosa grossly intact without significant lesions, there is no thrush. Dentition is warm for age. Neck: The neck is supple without significant lymphadenopathy or thyromegaly. Lungs: Symmetrical air entry is noted with evidence of extra wheezes that are scattered. No julian bronchial sounds were noted. No egophony or dullness. Heart: Irregular with an audible S1 and S2, no S3 soft S4, no new murmur click or rub. Abdomen: Obese, Positive bowel sounds soft and nontender without palpable masses or organomegaly. There was no guarding or rebound. Evidence of the prior abdominal surgeries noted. At the most superior aspect of the surgical incision is evidence of some hyper-granulation tissue. At the base of the hyperventilation tissue is exposed mesh. Extremities: There is bilateral lower extremity edema. There some erythema to both lower extremities. Much more prominent on the right lower extremity from the knee distally. There is evidence of the significant ulceration to the heel that measures at 7.1 x 5.2 x 0.3 cm. Neuro: Sedated, opens eyes to stimulation but does not try to communicate. - Labs CBC & Chem 7: 08/24/16 05:38 08/24/16 22:05 Labs: Abnormal Lab Results - Last 24 Hours (Table) 08/24/16 08/24/16 08/24/16 Range/Units 00:09 05:26 05:38 WBC 14.6 H (3.8-10.6) k/uL RBC 4.11 L (4.30-5.90) m/uL Hgb 12.0 L (13.0-17.5) gm/dL MCHC 29.7 L (31.0-37.0) g/dL Plt Count 481 H (150-450) k/uL Neutrophils # 12.3 H (1.3-7.7) k/uL Lymphocytes # 0.9 L (1.0-4.8) k/uL PT (9.0-12.0) sec APTT (22.0-30.0) sec Carbon Dioxide (22-30) mmol/L BUN (9-20) mg/dL Creatinine (0.66-1.25) mg/dL Glucose (74-99) mg/dL POC Glucose (mg/dL) 166 H 141 H (75-99) mg/dL AST (17-59) U/L Total Protein (6.3-8.2) g/dL Albumin (3.5-5.0) g/dL 08/24/16 08/24/16 08/24/16 Range/Units 05:38 05:38 07:57 WBC (3.8-10.6) k/uL RBC (4.30-5.90) m/uL Hgb (13.0-17.5) gm/dL MCHC (31.0-37.0) g/dL Plt Count (150-450) k/uL Neutrophils # (1.3-7.7) k/uL Lymphocytes # (1.0-4.8) k/uL PT 18.1 H (9.0-12.0) sec APTT 33.1 H (22.0-30.0) sec Carbon Dioxide 32 H (22-30) mmol/L BUN 28 H (9-20) mg/dL Creatinine 1.50 H (0.66-1.25) mg/dL Glucose 167 H (74-99) mg/dL POC Glucose (mg/dL) 178 H (75-99) mg/dL AST 15 L (17-59) U/L Total Protein 6.1 L (6.3-8.2) g/dL Albumin 2.6 L (3.5-5.0) g/dL 08/24/16 08/24/16 08/24/16 Range/Units 11:43 16:21 20:04 WBC (3.8-10.6) k/uL RBC (4.30-5.90) m/uL Hgb (13.0-17.5) gm/dL MCHC (31.0-37.0) g/dL Plt Count (150-450) k/uL Neutrophils # (1.3-7.7) k/uL Lymphocytes # (1.0-4.8) k/uL PT (9.0-12.0) sec APTT (22.0-30.0) sec Carbon Dioxide (22-30) mmol/L BUN (9-20) mg/dL Creatinine (0.66-1.25) mg/dL Glucose (74-99) mg/dL POC Glucose (mg/dL) 151 H 170 H 143 H (75-99) mg/dL AST (17-59) U/L Total Protein (6.3-8.2) g/dL Albumin (3.5-5.0) g/dL Microbiology - Last 24 Hours (Table) 08/20/16 14:50 Blood Culture - Preliminary Blood No Growth after 96 hours Laboratory Results WBC 14.6 k/uL (3.8-10.6) H 08/24/16 05:38 RBC 4.11 m/uL (4.30-5.90) L 08/24/16 05:38 Hgb 12.0 gm/dL (13.0-17.5) L 08/24/16 05:38 Hct 40.6 % (39.0-53.0) 08/24/16 05:38 MCV 98.8 fL (80.0-100.0) 08/24/16 05:38 MCH 29.3 pg (25.0-35.0) 08/24/16 05:38 MCHC 29.7 g/dL (31.0-37.0) L 08/24/16 05:38 RDW 15.1 % (11.5-15.5) 08/24/16 05:38 Plt Count 481 k/uL (150-450) H 08/24/16 05:38 Neutrophils % 84 % 08/24/16 05:38 Lymphocytes % 6 % 08/24/16 05:38 Monocytes % 5 % 08/24/16 05:38 Eosinophils % 3 % 08/24/16 05:38 Basophils % 1 % 08/24/16 05:38 Neutrophils # 12.3 k/uL (1.3-7.7) H 08/24/16 05:38 Lymphocytes # 0.9 k/uL (1.0-4.8) L 08/24/16 05:38 Monocytes # 0.7 k/uL (0-1.0) 08/24/16 05:38 Eosinophils # 0.4 k/uL (0-0.7) 08/24/16 05:38 Basophils # 0.1 k/uL (0-0.2) 08/24/16 05:38 Manual Slide Review Performed 08/19/16 07:30 Hypochromasia Marked 08/24/16 05:38 Poikilocytosis Slight 08/23/16 03:57 Macrocytosis Slight 08/24/16 05:38 PT 18.1 sec (9.0-12.0) H 08/24/16 05:38 INR 1.9 (<1.1) 08/24/16 05:38 APTT 33.1 sec (22.0-30.0) H 08/24/16 05:38 Sample Site rrad 08/23/16 09:48 ABG pH 7.35 (7.35-7.45) 08/23/16 09:48 ABG pCO2 55 mmHg (35-45) H 08/23/16 09:48 ABG pO2 92 mmHg (83-108) 08/23/16 09:48 ABG HCO3 30 mmol/L (21-25) H 08/23/16 09:48 ABG Total CO2 31 mmol/L (19-24) H 08/23/16 09:48 ABG O2 Saturation 97.0 % (94-97) 08/23/16 09:48 ABG Base Excess 4.3 mmol/L 08/23/16 09:48 FiO2 40 % 08/23/16 09:48 Sodium 145 mmol/L (137-145) 08/24/16 05:38 Potassium 4.0 mmol/L (3.5-5.1) 08/24/16 22:05 Chloride 103 mmol/L (98-107) 08/24/16 05:38 Carbon Dioxide 32 mmol/L (22-30) H 08/24/16 05:38 Anion Gap 10 mmol/L 08/24/16 05:38 BUN 28 mg/dL (9-20) H 08/24/16 05:38 Creatinine 1.50 mg/dL (0.66-1.25) H 08/24/16 05:38 Est GFR (MDRD) Af Amer 58 (>60 ml/min/1.73 sqM) 08/24/16 05:38 Est GFR (MDRD) Non-Af 48 (>60 ml/min/1.73 sqM) 08/24/16 05:38 Glucose 167 mg/dL (74-99) H 08/24/16 05:38 POC Glucose (mg/dL) 143 mg/dL (75-99) H 08/24/16 20:04 POC Glu Drawbench Operator Helper ID Siena Newman 08/24/16 20:[address] Glu mg/dL 134 mg/dL 08/23/16 09:48 Hemoglobin A1c 6.3 % (4.2-6.1) H 08/23/16 09:48 Plasma Lactic Acid Cristiano 1.1 mmol/L (0.7-2.0) 08/20/16 03:09 Calcium 8.9 mg/dL (8.4-10.2) 08/24/16 05:38 Ionized Calcium Mara 5.0 mg/dL (4.5-5.3) 08/24/16 05:38 Phosphorus 2.9 mg/dL (2.5-4.5) 08/24/16 05:38 Magnesium 1.9 mg/dL (1.6-2.3) 08/24/16 22:05 Total Bilirubin 0.9 mg/dL (0.2-1.3) 08/24/16 05:38 AST 15 U/L (17-59) L 08/24/16 05:38 ALT 22 U/L (21-72) 08/24/16 05:38 Alkaline Phosphatase 74 U/L (38-126) 08/24/16 05:38 Ammonia 9 umol/L (<30) 08/24/16 05:58 Total Creatine Kinase 209 U/L (55-170) H 08/15/16 11:54 CK-MB (CK-2) 2.9 ng/mL (0.0-2.4) H* 08/15/16 11:54 CK-MB (CK-2) Rel Index 1.4 08/15/16 11:54 Troponin I 0.201 ng/mL (0.000-0.034) H* 08/15/16 11:54 NT-Pro-B Natriuret Pep 7750 pg/mL 08/20/16 03:09 Total Protein 6.1 g/dL (6.3-8.2) L 08/24/16 05:38 Albumin 2.6 g/dL (3.5-5.0) L 08/24/16 05:38 Triglycerides 203 mg/dL (<150) H 08/23/16 09:48 TSH 2.480 mIU/L (0.465-4.680) 08/20/16 04:00 Urine Color Yellow 08/20/16 04:20 Urine Appearance Cloudy (Clear) 08/20/16 04:20 Urine pH 5.5 (5.0-8.0) 08/20/16 04:20 Ur Specific [place] 1.014 (1.001-1.035) 08/20/16 04:20 Urine Protein Trace (Negative) H 08/20/16 04:20 Urine Glucose (UA) Negative (Negative) 08/20/16 04:20 Urine Ketones Negative (Negative) 08/20/16 04:20 Urine Blood Trace (Negative) H 08/20/16 04:20 Urine Nitrite Negative (Negative) 08/20/16 04:20 Urine Bilirubin Negative (Negative) 08/20/16 04:20 Urine Urobilinogen <2.0 mg/dL (<2.0) 08/20/16 04:20 Ur Leukocyte Esterase Large (Negative) H 08/20/16 04:20 Urine RBC 10 /hpf (0-5) H 08/20/16 04:20 Urine WBC 2 /hpf (0-5) 08/20/16 04:20 Urine WBC Clumps Rare /hpf (None) H 08/15/16 00:40 Ur Squamous Epith Cells 3 /hpf (0-4) 08/20/16 04:20 Amorphous Sediment Rare /hpf (None) H 08/20/16 04:20 Urine Bacteria Rare /hpf (None) H 08/15/16 00:40 Hyaline Casts 8 /lpf (0-2) H 08/15/16 00:40 Urine Mucus Rare /hpf (None) H 08/20/16 04:20 Vancomycin Trough 31.1 ug/mL H* 08/17/16 23:00 Random Vancomycin 17.0 ug/mL 08/20/16 04:00 Microbiology 08/20/16 14:50 Blood Blood Culture - Preliminary No Growth after 96 hours 08/19/16 11:30 Heel - Right Gram Stain - Final 08/19/16 11:30 Heel - Right Wound Culture - Final Citrobacter freundii Enterococcus faecalis VRE Radhika albicans 08/20/16 04:20 Urine,Catheterized Urine Culture - Final 08/15/16 00:40 Blood Blood Culture - Final No Growth after 144 hours 08/15/16 00:40 Urine,Voided Urine Culture - Final Assessment and Plan (1) Sepsis Narrative/Plan: 61-year-old male who has a history of multiple medical troubles that includes diabetes obesity coronary artery disease and atrial fibrillation. Presents to Hospital feeling very poorly. He had worsening cardiac dysrhythmia his atrial fibrillation and developed a rapid ventricular response. Became weak and ill and constantly remitted to coming to hospital. He is having difficulty with worsening ulceration to his heel. It was noted during his last hospital stay. And is to be getting ongoing care at the wound healing Center. During the last stay it was a goal to have him go to extended care however he refused. And then with therapy he was proving that he was able to get up and move a bit. Despite this he has not been doing well at home. He's been getting worse. He now has marked worsening infection to the right leg. Prior culture shows evidence of MRSA, klebsiella and Proteus infection. Constantly vancomycin and ceftriaxone were given for now until we have further data. Avoid Levaquin use since he is on Coumadin. Patient is chronic medical noncompliance. He has hemoglobin A1c was down to 6.1 Patient has been having difficulties with offloading the heel. A brown air boot is been requested to get up and off the bed at this time. We'll need to have a specialty boot designed the time of his discharge to take weight off of the heel. He will follow the wound healing Center. He' will continue follow- up with the vascular surgeon. Local wound care with Santyl will be utilized given large amount of necrotic material, may need surgical debridement Pain control is improved Atrial fibrillation is controlled. Continues to have leukocytosis but improving with current wound care and antibiotic therapy Creatinine is increased. We'll discontinue ketorolac. Was receiving vancomycin therapy. However when the artery was isolated this was altered to daptomycin. Wound culture with gram-negative bacilli. Patient does have a remote history of pseudomonal infection. As well as of MRSA. Creatinine is improving and we'll alter antibiotic therapy from ceftriaxone to cefepime given the current culture results. Patient receiving BiPAP as needed his mental status is improved. Concerned to DTs and the alcohol withdrawal protocol was initiated and is being weaned. 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
[2016-08-25 00:11] LABS: Glucose,Whole Blood 160 mg/dL (75-99)
[2016-08-25] MEDS: INSULIN LISPRO (humaLOG) 300 UNIT/3 ML VIAL SQ SCH ×6 (00:55→22:41)
[2016-08-25] MEDS: MORPHINE SULFATE 4 MG/ML SYRINGE IV PRN ×4 (01:23→17:12)
[2016-08-25] MEDS: LORazepam 2 MG/ML SYRINGE IV PRN ×8 (01:23→23:05)
[2016-08-25 03:57] LABS: Glucose,Whole Blood 155 mg/dL (75-99)
[2016-08-25 05:38] LABS: Basophils # (A) 0.1 k/uL (0-0.2); Basophils % (A) 1 %; CH 29.5; CHCM 29.8; Eosinophils # (A) 0.4 k/uL (0-0.7); Eosinophils % (A) 3 %; HCT 40.5 % (39.0-53.0); HDW 3.34; HGB 12.2 gm/dL (13.0-17.5); Hypochromasia Marked; Luc # (Auto) 0.24; Luc % (Auto) 2; Lymphocytes % (A) 7 %; MCV 99.7 fL (80.0-100.0); Macrocytosis Slight; Mean Platelet Volume 6.9; Monocytes # (A) 0.8 k/uL (0-1.0); Monocytes % (A) 6 %; Neutrophils # (A) 11.5 k/uL (1.3-7.7); Neutrophils % (A) 82 %; RBC 4.06 m/uL (4.30-5.90); WBC (Perox) 14.08
[2016-08-25 05:46] LABS: Calcium 8.8 mg/dL (8.4-10.2); Magnesium 1.9 mg/dL (1.6-2.3); Phosphorous 2.5 mg/dL (2.5-4.5); Potassium 3.6 mmol/L (3.5-5.1)
[2016-08-25 05:57] LABS: INR 1.7 (<1.1); Partial Thromboplastin Time 32.3 sec (22.0-30.0); Prothrombin Time 16.1 sec (9.0-12.0)
[2016-08-25] MEDS ORDERED: Potassium Replacement Protocol 1 EACH MISC MISCELLANE PRN ×2 (06:12→17:09)
[2016-08-25] MEDS: POTASSIUM CHLORIDE 10 MEQ, LIDOCAINE 2% INJ 10 MG in SODIUM CHLORIDE 0.9% 100 ML IV SCH ×2 (06:44→08:53)
--- NOTE | 2016-08-25 07:33 | P.PN ---
Subjective Principal diagnosis: Lethargy This is a 61-year-old white male essentially admitted for sepsis related to cellulitis. He has underlying history of atrial fibrillation. He is feeding with PPN at this time. We need to consider restarting some form of DVT prophylaxis/anticoagulation. No significant complaints stated but he is arousable today he does answer questions seemingly appropriately but has slurred speech. Objective - Vital Signs Vital signs: Vital Signs Temp 97.3 F L 08/25/16 00:00 Pulse 88 08/25/16 06:00 Resp 14 08/25/16 06:00 BP 129/76 08/25/16 06:00 Pulse Ox 97 08/25/16 06:00 Intake & Output 08/24/16 08/25/16 08/25/16 18:59 06:59 18:59 Intake Total 911 772 Output Total 4281 5895 Balance -859 -9641 Weight 150.8 kg 149.7 kg Intake: IV 80 Dextrose 5% in Water 1, 80 000 ml @ 20 mls/hr IV . Q24H [facility] Rx#:[id number] Intake, IV Titration 831 772 Amount Cefepime 2 gm In Sodium 50 50 Chloride 0.9% 50 ml @ 100 mls/hr IVPB Q12HR [facility] Rx #:[id number] DAPTOmycin 500 mg In 50 Sodium Chloride 0.9% 50 ml @ 100 mls/hr IV Q24H [facility] Rx#:[id number] Fat Emulsion 20% 250 ml 21 252 In Empty Bag 1 bag @ 21 mls/hr IV DAILY@1800 [facility] Rx#:[id number] Mvi, Adult No.4 with Vit 120 360 K 10 ml Trace (Conc-1Ml/ Dose) 1 ml Parenteral Electrolytes 20 ml In Amino Acid 5%-D25w 1,000 ml @ 30 mls/hr IV .Q24H [facility] Rx#:[id number] Mvi, Adult No.4 with Vit 320 K 10 ml Trace (Conc-1Ml/ Dose) 1 ml Sodium Acetate 20 meq Potassium Chloride 8 meq Magnesium Sulfate 4 meq Calcium Gluconate 500 mg Potassium Phosphate 10 mmol In Amino Acid 4.25%- D10w 1,000 ml @ 50 mls/hr IV .[id number] [facility] Rx#: [id number] Potassium Chloride 10 meq 200 Lidocaine 2% Inj 10 mg In Sodium Chloride 0.9% 100 ml @ 100 mls/hr IV Q1HR [facility] Rx#:[id number] Sodium Chloride 0.9% 1, 70 110 000 ml @ 10 mls/hr IV . Q24H [facility] Rx#:[id number] Output: Urine 6560 2575 Other: Voiding Method Indwelling Catheter Indwelling Catheter # Voids 1 - Constitutional General appearance: Present: obese - EENT Eyes: Absent: abnormal pupil - Neck Neck: Absent: lymphadenopathy - Respiratory Respiratory: bilateral: CTA - Cardiovascular Rhythm: irregularly irregular Heart sounds: normal: S1, S2 - Gastrointestinal General gastrointestinal: Present: soft. Absent: tenderness - Psychiatric Psychiatric: Absent: A&O x's 3 - Labs CBC & Chem 7: 08/25/16 05:27 08/25/16 05:27 Labs: Abnormal Lab Results - Last 24 Hours (Table) 08/24/16 08/24/16 08/24/16 Range/Units 07:57 11:43 16:21 WBC (3.8-10.6) k/uL RBC (4.30-5.90) m/uL Hgb (13.0-17.5) gm/dL MCHC (31.0-37.0) g/dL Neutrophils # (1.3-7.7) k/uL PT (9.0-12.0) sec APTT (22.0-30.0) sec Sodium (137-145) mmol/L Carbon Dioxide (22-30) mmol/L BUN (9-20) mg/dL Creatinine (0.66-1.25) mg/dL Glucose (74-99) mg/dL POC Glucose (mg/dL) 178 H 151 H 170 H (75-99) mg/dL 08/24/16 08/25/16 08/25/16 Range/Units 20:04 00:09 03:55 WBC (3.8-10.6) k/uL RBC (4.30-5.90) m/uL Hgb (13.0-17.5) gm/dL MCHC (31.0-37.0) g/dL Neutrophils # (1.3-7.7) k/uL PT (9.0-12.0) sec APTT (22.0-30.0) sec Sodium (137-145) mmol/L Carbon Dioxide (22-30) mmol/L BUN (9-20) mg/dL Creatinine (0.66-1.25) mg/dL Glucose (74-99) mg/dL POC Glucose (mg/dL) 143 H 160 H 155 H (75-99) mg/dL 08/25/16 08/25/16 08/25/16 Range/Units 05:27 05:27 05:27 WBC 14.0 H (3.8-10.6) k/uL RBC 4.06 L (4.30-5.90) m/uL Hgb 12.2 L (13.0-17.5) gm/dL MCHC 30.0 L (31.0-37.0) g/dL Neutrophils # 11.5 H (1.3-7.7) k/uL PT 16.1 H (9.0-12.0) sec APTT 32.3 H (22.0-30.0) sec Sodium 146 H (137-145) mmol/L Carbon Dioxide 35 H (22-30) mmol/L BUN 30 H (9-20) mg/dL Creatinine 1.56 H (0.66-1.25) mg/dL Glucose 165 H (74-99) mg/dL POC Glucose (mg/dL) (75-99) mg/dL Microbiology - Last 24 Hours (Table) 08/20/16 14:50 Blood Culture - Preliminary Blood No Growth after 96 hours Assessment and Plan (1) Open wound of both legs with complication Status: Acute (2) Cellulitis of left lower extremity Status: Acute (3) Cellulitis of right leg Status: Acute (4) Illiterate Status: Acute (5) Smoking Status: Acute Plan: Continue current regimen of antibiotic treatment. DVT prophylaxis per shrink pit supervisor care. Check CBC and CMP in a.m. Prognosis is improving but still guarded secondary to his multiple comorbidities. Time with Patient: Less than 30
[2016-08-25] MEDS: LEVALBUTEROL NEB 1.25 MG/3 ML AMP INHALATION SCH ×4 (08:05→20:04)
[2016-08-25] MEDS: BUDESONIDE 0.5 MG/2 ML NEBU INHALATION SCH ×2 (08:05→20:04)
[2016-08-25 08:08] LABS: Glucose,Whole Blood 153 mg/dL (75-99)
[2016-08-25] MEDS: NICOTINE 21MG/24HR PATCH TRANSDERM SCH (08:54)
[2016-08-25] MEDS: CEFEPIME 2 GM in SODIUM CHLORIDE 0.9% 50 ML IVPB SCH ×2 (08:54→22:37)
[2016-08-25] MEDS: PANTOPRAZOLE 40 MG/10 ML VIAL IVP SCH (08:54)
[2016-08-25] MEDS: FUROSEMIDE 10 MG/ML 4 ML VIAL IV SCH ×3 (08:54→22:39)
[2016-08-25] MEDS: SODIUM CHLORIDE 0.9% 1,000 ML IV SCH (08:56)
--- NOTE | 2016-08-25 09:11 | XR ---
EXAMINATION TYPE: XR chest 1V portable DATE OF EXAM: 08/25/2016 6:17 AM COMPARISON: 08/24/2016 HISTORY: Shortness of breath FINDINGS: There are bilateral pleural effusions with cardiomegaly and bibasilar infiltrate. There is a diffuse interstitial pattern. PICC line noted. Atherosclerotic change aorta. Chronic rib deformities noted. IMPRESSION: 1. Bilateral infiltrate and pleural effusion. Underlying venous congestion not excluded.
[2016-08-25] MEDS: MAGNESIUM SULFATE-D5W PMX 1 GM in DEXTROSE/WATER 1 100ML.BAG IVPB SCH ×2 (11:14→12:29)
[2016-08-25 12:17] LABS: Glucose,Whole Blood 163 mg/dL (75-99)
[2016-08-25] MEDS: THIAMINE 100 MG TAB PO SCH ×2 (12:31→17:09)
[2016-08-25] MEDS ORDERED: HEPARIN SODIUM,PORCINE 5,000 UNIT/ML 1 ML VIAL IV ONE (12:55)
[2016-08-25] MEDS: HALOPERIDOL LACTATE 5 MG/ML 1 ML VIAL IVP PRN ×2 (13:07→23:05)
--- NOTE | 2016-08-25 13:08 | P.PN ---
Subjective Principal diagnosis: Acute hypoxic and hypercapnic respiratory failure Patient seen and examined in the ICU with nursing staff at bedside. The patient was trialed off of BiPAP this morning. He did well for about 2 hours and was placed back on it. The patient is much more alert today. He has been pulling at his IVs and BiPAP. He is answering yes and no questions. The patient has been hemodynamically stable. His urine output has been excellent. Objective - Vital Signs Vital signs: Vital Signs Temp 97.5 F L 08/25/16 08:00 Pulse 96 08/25/16 12:00 Resp 16 08/25/16 12:00 BP 124/84 08/25/16 12:00 Pulse Ox 94 L 08/25/16 12:00 Intake & Output 08/24/16 08/25/16 08/25/16 18:59 06:59 18:59 Intake Total 911 772 500 Output Total 1670 2695 1225 Balance -759 -1803 -725 Weight 150.8 kg 149.7 kg Intake: IV 80 Dextrose 5% in Water 1, 80 000 ml @ 20 mls/hr IV . Q24H [facility] Rx#:[id number] Intake, IV Titration 831 772 500 Amount Cefepime 2 gm In Sodium 50 50 50 Chloride 0.9% 50 ml @ 100 mls/hr IVPB Q12HR [facility] Rx #:[id number] DAPTOmycin 500 mg In 50 Sodium Chloride 0.9% 50 ml @ 100 mls/hr IV Q24H [facility] Rx#:[id number] Fat Emulsion 20% 250 ml 21 252 In Empty Bag 1 bag @ 21 mls/hr IV DAILY@1800 [facility] Rx#:[id number] Mvi, Adult No.4 with Vit 60 K 10 ml Trace (Conc-1Ml/ Dose) 1 ml Calcium Gluconate 1,000 mg Sodium Acetate 10 meq Potassium Chloride 14 meq Magnesium Sulfate 4 meq Potassium Phosphate 9 mmol In Amino Acid 5%- D25w 1,000 ml @ 70 mls/hr IV .BY DURATION [facility] Rx#: [id number] Mvi, Adult No.4 with Vit 120 360 120 K 10 ml Trace (Conc-1Ml/ Dose) 1 ml Parenteral Electrolytes 20 ml In Amino Acid 5%-D25w 1,000 ml @ 30 mls/hr IV .Q24H [facility] Rx#:[id number] Mvi, Adult No.4 with Vit 320 K 10 ml Trace (Conc-1Ml/ Dose) 1 ml Sodium Acetate 20 meq Potassium Chloride 8 meq Magnesium Sulfate 4 meq Calcium Gluconate 500 mg Potassium Phosphate 10 mmol In Amino Acid 4.25%- D10w 1,000 ml @ 50 mls/hr IV .[id number] ONE Rx#: [id number] Potassium Chloride 10 meq 200 Lidocaine 2% Inj 10 mg In Sodium Chloride 0.9% 100 ml @ 100 mls/hr IV Q1HR [facility] Rx#:[id number] Potassium Chloride 10 meq 200 Lidocaine 2% Inj 10 mg In Sodium Chloride 0.9% 100 ml @ 100 mls/hr IV Q1HR [facility] Rx#:[id number] Sodium Chloride 0.9% 1, 70 110 70 000 ml @ 10 mls/hr IV . Q24H [facility] Rx#:[id number] Output: Urine 1670 2575 1225 Other: Voiding Method Indwelling Catheter Indwelling Catheter Indwelling Catheter # Voids 1 - Exam Gen.: Patient is on BiPAP, comfortable, arousable, super morbidly obese Cardiovascular: Irregular rate and rhythm, S1/S2 Lungs: Diminished breath sounds at the bases with scattered crackles Abdomen: Soft nontender nondistended positive bowel sounds Extremities: Cellulitis, chronic venous stasis, edema - Labs CBC & Chem 7: 08/25/16 05:27 08/25/16 05:27 Labs: Abnormal Lab Results - Last 24 Hours (Table) 08/24/16 08/24/16 08/25/16 Range/Units 16:21 20:04 00:09 WBC (3.8-10.6) k/uL RBC (4.30-5.90) m/uL Hgb (13.0-17.5) gm/dL MCHC (31.0-37.0) g/dL Neutrophils # (1.3-7.7) k/uL PT (9.0-12.0) sec APTT (22.0-30.0) sec Sodium (137-145) mmol/L Carbon Dioxide (22-30) mmol/L BUN (9-20) mg/dL Creatinine (0.66-1.25) mg/dL Glucose (74-99) mg/dL POC Glucose (mg/dL) 170 H 143 H 160 H (75-99) mg/dL 08/25/16 08/25/16 08/25/16 Range/Units 03:55 05:27 05:27 WBC 14.0 H (3.8-10.6) k/uL RBC 4.06 L (4.30-5.90) m/uL Hgb 12.2 L (13.0-17.5) gm/dL MCHC 30.0 L (31.0-37.0) g/dL Neutrophils # 11.5 H (1.3-7.7) k/uL PT (9.0-12.0) sec APTT (22.0-30.0) sec Sodium 146 H (137-145) mmol/L Carbon Dioxide 35 H (22-30) mmol/L BUN 30 H (9-20) mg/dL Creatinine 1.56 H (0.66-1.25) mg/dL Glucose 165 H (74-99) mg/dL POC Glucose (mg/dL) 155 H (75-99) mg/dL 08/25/16 08/25/16 08/25/16 Range/Units 05:27 08:06 12:15 WBC (3.8-10.6) k/uL RBC (4.30-5.90) m/uL Hgb (13.0-17.5) gm/dL MCHC (31.0-37.0) g/dL Neutrophils # (1.3-7.7) k/uL PT 16.1 H (9.0-12.0) sec APTT 32.3 H (22.0-30.0) sec Sodium (137-145) mmol/L Carbon Dioxide (22-30) mmol/L BUN (9-20) mg/dL Creatinine (0.66-1.25) mg/dL Glucose (74-99) mg/dL POC Glucose (mg/dL) 153 H 163 H (75-99) mg/dL Microbiology - Last 24 Hours (Table) 08/20/16 14:50 Blood Culture - Preliminary Blood No Growth after 96 hours Assessment and Plan Plan: Acute hypoxic and hypercapnic respiratory failure Acute exacerbation of CHF, diastolic, ejection fraction 60-65% Atrial fibrillation with rapid ventricular response Likely underlying COPD, active tobacco abuse Delirium tremens Coumadin coagulopathy, therapeutic Sepsis Anemia, normochromic normocytic Thrombocytosis Hyperammonemia Lower extremity cellulitis: polymicrobial Diabetic ulcer DM2 Super morbid obesity, concerning for underlying MACO/OHS Toxic metabolic encephalopathy Acute kidney injury on chronic kidney disease Pulmonary hypertension, moderate to severe, RVSP 53 mmHg Peripheral arterial disease Active tobacco abuse Continue BiPAP, ok to trial off for short periods of time Cardizem drip per cardiology team Diuresis, Lasix three times a day Monitor renal function Serial CXR DC Lactulose, monitor ammonia level Bronchodilators and Pulmicort Antibiotics per ID Wound care CIWA protocol NPO while on bipap, will initiate TPN GI and DVT Prophylaxis: Protonix Monitor INR - initiate heparin drip Start haldol, decrease amount of benzos/opiates patient is receiving Smoking cessation highly recommended, Nicotine TD Prognosis is extremely guarded Progress has been slow
[2016-08-25] MEDS: HEPARIN SODIUM,PORCINE/D5W PMX 25,000 UNIT in DEXTROSE/WATER 1 500ML.BAG IV SCH (14:01)
[2016-08-25] MEDS: DAPTOmycin 500 MG in SODIUM CHLORIDE 0.9% 50 ML IV SCH (17:07)
[2016-08-25 17:25] LABS: Glucose,Whole Blood 163 mg/dL (75-99)
[2016-08-25] MEDS ORDERED: POTASSIUM CHLORIDE 20 MEQ in WATER FOR INJECTION 1 100ML.BAG IVPB ONE (17:30)
[2016-08-25] MEDS: FAT EMULSION 20% 250 ML in EMPTY BAG 1 BAG IV SCH (18:43)
[2016-08-25] MEDS: 1: MVI, ADULT NO.4 WITH VIT K 10 ML, TRACE (CONC-1ML/DOSE) 1 ML, CALCIUM GLUCONATE 1,000 IV SCH ×8 (18:58)
[2016-08-25 20:14] LABS: Glucose,Whole Blood 193 mg/dL (75-99)
[2016-08-25] MEDS: DILTIAZEM 125 MG in SODIUM CHLORIDE 0.9% 100 ML IV SCH (22:37)
[2016-08-25] MEDS: HEPARIN SODIUM,PORCINE 5,000 UNIT/ML 1 ML VIAL IV PRN (22:38)
[2016-08-25] MEDS: COLLAGENASE 250 UNIT/GM OINTMENT 30 GM TUBE TOPICAL SCH (22:39)
[2016-08-25] MEDS: INSULIN GLARGINE 100 UNIT/ML 10 ML VIAL SQ SCH (22:41)
--- NOTE | 2016-08-25 23:12 | P.PN ---
Subjective Principal diagnosis: fever cellulitis 61-year-old male with a long-standing history of diabetes mellitus type 2 poorly controlled as well as coronary artery disease congestive heart failure and chronic lower extremity edema. He was recently hospitalized without evidence of an infection to his left leg and heel. He was seen by vascular surgery has been following the wound center. The patient has been on antibiotic therapy with ciprofloxacin. For the isolated pathogens. The patient relates in the days before coming to hospital he started to feel ill. Increasing weakness. Increasing swelling and redness to the leg. An increasing over the left heel. His was trying to get him to come to the hospital for days before he finally came because he became so weak that he could no longer object. Upon arrival to the emergency center temperature 102.2 was noted. He was also having difficulty with worsening arrhythmia with his atrial fibrillation having a rapid ventricular response. He has been seen by cardiology. And there is been improvement of his uncontrolled rhythm. He still feels poorly. He's had fever which is feeling slightly better at this time still has chills. Is concerned about the ongoing ulceration to his left heel. He relates that he has not been offloading it. He can't wear any shoes causes his legs are so swollen. Spends his time in a lazy- boy recliner when he is at home. His had a further decline of his status. He was transferred to the intensive care unit. He had BiPAP in place for worsening respiratory status. The patient became somewhat uncooperative and somnolent. And as noted the patient' s related that he was a heavy drinker. He is on the CIWA protocol and Ativan is being weaned. He is showing improvement Patient is currently restless in the intensive care unit with BiPAP use. Respiratory status is not improving. Urine output is adequate. No vasopressor therapy. Objective - Vital Signs Vital signs: Vital Signs Temp 97.5 F L 08/25/16 08:00 Pulse 88 08/25/16 20:08 Resp 13 08/25/16 19:00 BP 158/85 08/25/16 19:00 Pulse Ox 96 08/25/16 19:00 Intake & Output 08/25/16 08/25/16 08/26/16 06:59 18:59 06:59 Intake Total 897 920 333.333 Output Total 2575 2425 100 Balance -1678 -1505 233.333 Weight 149.7 kg Intake: Intake, IV Titration 897 920 333.333 Amount Calcium Gluconate 1,000 70 mg Sodium Acetate 10 meq Potassium Chloride 14 meq Magnesium Sulfate 4 meq Potassium Phosphate 9 mmol In Amino Acid 5%- D25w 1,000 ml @ 70 mls/hr IV .BY DURATION [facility] Rx#: [id number] Cefepime 2 gm In Sodium 50 50 Chloride 0.9% 50 ml @ 100 mls/hr IVPB Q12HR [facility] Rx #:[id number] DAPTOmycin 500 mg In 50 Sodium Chloride 0.9% 50 ml @ 100 mls/hr IV Q24H [facility] Rx#:[id number] Diltiazem 125 mg In 125 Sodium Chloride 0.9% 100 ml @ 5 MG/HR 5 mls/hr IV .Q24H [facility] Rx#:[id number] Fat Emulsion 20% 250 ml 252 In Empty Bag 1 bag @ 21 mls/hr IV DAILY@1800 [facility] Rx#:[id number] Fat Emulsion 20% 250 ml 21 In Empty Bag 1 bag @ 21 mls/hr IV MoWeFr@1800 [facility] Rx#:[id number] Heparin Sodium,Porcine/ 100 192.333 D5w Pmx 25,000 unit In Dextrose/Water 1 500ml. bag @ 6.681 UNITS/KG/HR 20 mls/hr IV .Q24H [facility] Rx #:[id number] Mvi, Adult No.4 with Vit 210 K 10 ml Trace (Conc-1Ml/ Dose) 1 ml Calcium Gluconate 1,000 mg Sodium Acetate 10 meq Potassium Chloride 14 meq Magnesium Sulfate 4 meq Potassium Phosphate 9 mmol In Amino Acid 5%- D25w 1,000 ml @ 70 mls/hr IV .BY DURATION [facility] Rx#: [id number] Mvi, Adult No.4 with Vit 360 150 K 10 ml Trace (Conc-1Ml/ Dose) 1 ml Parenteral Electrolytes 20 ml In Amino Acid 5%-D25w 1,000 ml @ 30 mls/hr IV .Q24H [facility] Rx#:[id number] Potassium Chloride 10 meq 200 Lidocaine 2% Inj 10 mg In Sodium Chloride 0.9% 100 ml @ 100 mls/hr IV Q1HR [facility] Rx#:[id number] Potassium Chloride 20 meq 50 50 In Water For Injection 1 100ml.bag @ 50 mls/hr IVPB ONCE ONE Rx#: [id number] Sodium Chloride 0.9% 1, 110 110 000 ml @ 10 mls/hr IV . Q24H [facility] Rx#:[id number] Output: Urine 2575 2425 100 Other: Voiding Method Indwelling Catheter Indwelling Catheter - Exam 61 year-old male who suffers from obesity. Seems to be modestly uncomfortable at this time. Of note upon entry he has his meal in front of him. He struggling to figure out where his silver is at although it is wrapped in a napkin on his tray. Does not appear to have a new acute visual change. HEENT: Anicteric conjunctiva are pink and moist nasal mucosa grossly intact without significant lesions, there is no thrush. Dentition is warm for age. Neck: The neck is supple without significant lymphadenopathy or thyromegaly. Lungs: Symmetrical air entry is noted with evidence of extra wheezes that are scattered. No julian bronchial sounds were noted. No egophony or dullness. Heart: Irregular with an audible S1 and S2, no S3 soft S4, no new murmur click or rub. Abdomen: Obese, Positive bowel sounds soft and nontender without palpable masses or organomegaly. There was no guarding or rebound. Evidence of the prior abdominal surgeries noted. At the most superior aspect of the surgical incision is evidence of some hyper-granulation tissue. At the base of the hyperventilation tissue is exposed mesh. Extremities: There is bilateral lower extremity edema. There some erythema to both lower extremities. Much more prominent on the right lower extremity from the knee distally. There is evidence of the significant ulceration to the heel that measures at 7.1 x 5.2 x 0.3 cm. Neuro: Sedated, opens eyes to stimulation but does not try to communicate. - Labs CBC & Chem 7: 08/25/16 05:27 08/25/16 20:15 Labs: Abnormal Lab Results - Last 24 Hours (Table) 08/25/16 08/25/16 08/25/16 Range/Units 00:09 03:55 05:27 WBC 14.0 H (3.8-10.6) k/uL RBC 4.06 L (4.30-5.90) m/uL Hgb 12.2 L (13.0-17.5) gm/dL MCHC 30.0 L (31.0-37.0) g/dL Neutrophils # 11.5 H (1.3-7.7) k/uL PT (9.0-12.0) sec APTT (22.0-30.0) sec Sodium (137-145) mmol/L Carbon Dioxide (22-30) mmol/L BUN (9-20) mg/dL Creatinine (0.66-1.25) mg/dL Glucose (74-99) mg/dL POC Glucose (mg/dL) 160 H 155 H (75-99) mg/dL 08/25/16 08/25/16 08/25/16 Range/Units 05:27 05:27 08:06 WBC (3.8-10.6) k/uL RBC (4.30-5.90) m/uL Hgb (13.0-17.5) gm/dL MCHC (31.0-37.0) g/dL Neutrophils # (1.3-7.7) k/uL PT 16.1 H (9.0-12.0) sec APTT 32.3 H (22.0-30.0) sec Sodium 146 H (137-145) mmol/L Carbon Dioxide 35 H (22-30) mmol/L BUN 30 H (9-20) mg/dL Creatinine 1.56 H (0.66-1.25) mg/dL Glucose 165 H (74-99) mg/dL POC Glucose (mg/dL) 153 H (75-99) mg/dL 08/25/16 08/25/16 08/25/16 Range/Units 12:15 17:23 20:12 WBC (3.8-10.6) k/uL RBC (4.30-5.90) m/uL Hgb (13.0-17.5) gm/dL MCHC (31.0-37.0) g/dL Neutrophils # (1.3-7.7) k/uL PT (9.0-12.0) sec APTT (22.0-30.0) sec Sodium (137-145) mmol/L Carbon Dioxide (22-30) mmol/L BUN (9-20) mg/dL Creatinine (0.66-1.25) mg/dL Glucose (74-99) mg/dL POC Glucose (mg/dL) 163 H 163 H 193 H (75-99) mg/dL 08/25/16 Range/Units 20:15 WBC (3.8-10.6) k/uL RBC (4.30-5.90) m/uL Hgb (13.0-17.5) gm/dL MCHC (31.0-37.0) g/dL Neutrophils # (1.3-7.7) k/uL PT (9.0-12.0) sec APTT 32.4 H (22.0-30.0) sec Sodium (137-145) mmol/L Carbon Dioxide (22-30) mmol/L BUN (9-20) mg/dL Creatinine (0.66-1.25) mg/dL Glucose (74-99) mg/dL POC Glucose (mg/dL) (75-99) mg/dL Microbiology - Last 24 Hours (Table) 08/20/16 14:50 Blood Culture - Preliminary Blood No Growth after 120 hours Laboratory Results WBC 14.0 k/uL (3.8-10.6) H 08/25/16 05:27 RBC 4.06 m/uL (4.30-5.90) L 08/25/16 05:27 Hgb 12.2 gm/dL (13.0-17.5) L 08/25/16 05:27 Hct 40.5 % (39.0-53.0) 08/25/16 05:27 MCV 99.7 fL (80.0-100.0) 08/25/16 05:27 MCH 30.0 pg (25.0-35.0) 08/25/16 05:27 MCHC 30.0 g/dL (31.0-37.0) L 08/25/16 05:27 RDW 15.0 % (11.5-15.5) 08/25/16 05:27 Plt Count 441 k/uL (150-450) 08/25/16 05:27 Neutrophils % 82 % 08/25/16 05:27 Lymphocytes % 7 % 08/25/16 05:27 Monocytes % 6 % 08/25/16 05:27 Eosinophils % 3 % 08/25/16 05:27 Basophils % 1 % 08/25/16 05:27 Neutrophils # 11.5 k/uL (1.3-7.7) H 08/25/16 05:27 Lymphocytes # 1.0 k/uL (1.0-4.8) 08/25/16 05:27 Monocytes # 0.8 k/uL (0-1.0) 08/25/16 05:27 Eosinophils # 0.4 k/uL (0-0.7) 08/25/16 05:27 Basophils # 0.1 k/uL (0-0.2) 08/25/16 05:27 Manual Slide Review Performed 08/19/16 07:30 Hypochromasia Marked 08/25/16 05:27 Poikilocytosis Slight 08/23/16 03:57 Macrocytosis Slight 08/25/16 05:27 PT 16.1 sec (9.0-12.0) H 08/25/16 05:27 INR 1.7 (<1.1) 08/25/16 05:27 APTT 32.4 sec (22.0-30.0) H 08/25/16 20:15 Sample Site rrad 08/23/16 09:48 ABG pH 7.35 (7.35-7.45) 08/23/16 09:48 ABG pCO2 55 mmHg (35-45) H 08/23/16 09:48 ABG pO2 92 mmHg (83-108) 08/23/16 09:48 ABG HCO3 30 mmol/L (21-25) H 08/23/16 09:48 ABG Total CO2 31 mmol/L (19-24) H 08/23/16 09:48 ABG O2 Saturation 97.0 % (94-97) 08/23/16 09:48 ABG Base Excess 4.3 mmol/L 08/23/16 09:48 FiO2 40 % 08/23/16 09:48 Sodium 146 mmol/L (137-145) H 08/25/16 05:27 Potassium 3.8 mmol/L (3.5-5.1) 08/25/16 20:15 Chloride 103 mmol/L (98-107) 08/25/16 05:27 Carbon Dioxide 35 mmol/L (22-30) H 08/25/16 05:27 Anion Gap 8 mmol/L 08/25/16 05:27 BUN 30 mg/dL (9-20) H 08/25/16 05:27 Creatinine 1.56 mg/dL (0.66-1.25) H 08/25/16 05:27 Est GFR (MDRD) Af Amer 55 (>60 ml/min/1.73 sqM) 08/25/16 05:27 Est GFR (MDRD) Non-Af 45 (>60 ml/min/1.73 sqM) 08/25/16 05:27 Glucose 165 mg/dL (74-99) H 08/25/16 05:27 POC Glucose (mg/dL) 193 mg/dL (75-99) H 08/25/16 20:12 POC Glu Waterproof Material Folder ID Siena Newman 08/25/16 20:[address] Glu mg/dL 134 mg/dL 08/23/16 09:48 Hemoglobin A1c 6.3 % (4.2-6.1) H 08/23/16 09:48 Plasma Lactic Acid Cristiano 1.1 mmol/L (0.7-2.0) 08/20/16 03:09 Calcium 8.8 mg/dL (8.4-10.2) 08/25/16 05:27 Ionized Calcium Mara 5.0 mg/dL (4.5-5.3) 08/24/16 05:38 Phosphorus 2.5 mg/dL (2.5-4.5) 08/25/16 05:27 Magnesium 1.9 mg/dL (1.6-2.3) 08/25/16 05:27 Total Bilirubin 0.9 mg/dL (0.2-1.3) 08/24/16 05:38 AST 15 U/L (17-59) L 08/24/16 05:38 ALT 22 U/L (21-72) 08/24/16 05:38 Alkaline Phosphatase 74 U/L (38-126) 08/24/16 05:38 Ammonia 12 umol/L (<30) 08/25/16 05:35 Total Creatine Kinase 209 U/L (55-170) H 08/15/16 11:54 CK-MB (CK-2) 2.9 ng/mL (0.0-2.4) H* 08/15/16 11:54 CK-MB (CK-2) Rel Index 1.4 08/15/16 11:54 Troponin I 0.201 ng/mL (0.000-0.034) H* 08/15/16 11:54 NT-Pro-B Natriuret Pep 7750 pg/mL 08/20/16 03:09 Total Protein 6.1 g/dL (6.3-8.2) L 08/24/16 05:38 Albumin 2.6 g/dL (3.5-5.0) L 08/24/16 05:38 Triglycerides 203 mg/dL (<150) H 08/23/16 09:48 TSH 2.480 mIU/L (0.465-4.680) 08/20/16 04:00 Urine Color Yellow 08/20/16 04:20 Urine Appearance Cloudy (Clear) 08/20/16 04:20 Urine pH 5.5 (5.0-8.0) 08/20/16 04:20 Ur Specific [place] 1.014 (1.001-1.035) 08/20/16 04:20 Urine Protein Trace (Negative) H 08/20/16 04:20 Urine Glucose (UA) Negative (Negative) 08/20/16 04:20 Urine Ketones Negative (Negative) 08/20/16 04:20 Urine Blood Trace (Negative) H 08/20/16 04:20 Urine Nitrite Negative (Negative) 08/20/16 04:20 Urine Bilirubin Negative (Negative) 08/20/16 04:20 Urine Urobilinogen <2.0 mg/dL (<2.0) 08/20/16 04:20 Ur Leukocyte Esterase Large (Negative) H 08/20/16 04:20 Urine RBC 10 /hpf (0-5) H 08/20/16 04:20 Urine WBC 2 /hpf (0-5) 08/20/16 04:20 Urine WBC Clumps Rare /hpf (None) H 08/15/16 00:40 Ur Squamous Epith Cells 3 /hpf (0-4) 08/20/16 04:20 Amorphous Sediment Rare /hpf (None) H 08/20/16 04:20 Urine Bacteria Rare /hpf (None) H 08/15/16 00:40 Hyaline Casts 8 /lpf (0-2) H 08/15/16 00:40 Urine Mucus Rare /hpf (None) H 08/20/16 04:20 Vancomycin Trough 31.1 ug/mL H* 08/17/16 23:00 Random Vancomycin 17.0 ug/mL 08/20/16 04:00 Microbiology 08/20/16 14:50 Blood Blood Culture - Preliminary No Growth after 120 hours 08/19/16 11:30 Heel - Right Gram Stain - Final 08/19/16 11:30 Heel - Right Wound Culture - Final Citrobacter freundii Enterococcus faecalis VRE Radhika albicans 08/20/16 04:20 Urine,Catheterized Urine Culture - Final 08/15/16 00:40 Blood Blood Culture - Final No Growth after 144 hours 08/15/16 00:40 Urine,Voided Urine Culture - Final Assessment and Plan (1) Sepsis Narrative/Plan: 61-year-old male who has a history of multiple medical troubles that includes diabetes obesity coronary artery disease and atrial fibrillation. Presents to Hospital feeling very poorly. He had worsening cardiac dysrhythmia his atrial fibrillation and developed a rapid ventricular response. Became weak and ill and constantly remitted to coming to hospital. He is having difficulty with worsening ulceration to his heel. It was noted during his last hospital stay. And is to be getting ongoing care at the wound healing Center. During the last stay it was a goal to have him go to extended care however he refused. And then with therapy he was proving that he was able to get up and move a bit. Despite this he has not been doing well at home. He's been getting worse. He now has marked worsening infection to the right leg. Prior culture shows evidence of MRSA, klebsiella and Proteus infection. Constantly vancomycin and ceftriaxone were given for now until we have further data. Avoid Levaquin use since he is on Coumadin. Patient is chronic medical noncompliance. He has hemoglobin A1c was down to 6.1 Patient has been having difficulties with offloading the heel. A brown air boot is been requested to get up and off the bed at this time. We'll need to have a specialty boot designed the time of his discharge to take weight off of the heel. He will follow the wound healing Center. He' will continue follow- up with the vascular surgeon. Local wound care with Santyl will be utilized given large amount of necrotic material, may need surgical debridement Pain control is improved Atrial fibrillation is controlled. Continues to have leukocytosis but improving with current wound care and antibiotic therapy Creatinine is increased. We'll discontinue ketorolac. Was receiving vancomycin therapy. However when the VRE that was isolated this was altered to daptomycin. Wound culture with gram-negative bacilli. Patient does have a remote history of pseudomonal infection. As well as of MRSA. Creatinine stable and we'll alter antibiotic therapy from ceftriaxone to cefepime given the current culture results. Patient receiving BiPAP as needed his mental status is improved. Concerned to DTs and the alcohol withdrawal protocol was initiated and is being weaned. Patient is not having significant improvement. He is becoming somewhat BiPAP dependent. Like to have further discussion with the family about alteration of his status. Specifically a DO NOT RESUSCITATE and potentially comfort care measures. 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
[2016-08-26] MEDS: MORPHINE SULFATE 4 MG/ML SYRINGE IV PRN ×5 (00:03→15:45)
[2016-08-26] MEDS: POTASSIUM CHLORIDE 10 MEQ in WATER FOR INJECTION 1 100ML.BAG IVPB SCH ×4 (00:04→23:45)
[2016-08-26 02:04] LABS: Glucose,Whole Blood 202 mg/dL (75-99)
[2016-08-26] MEDS: INSULIN LISPRO (humaLOG) 300 UNIT/3 ML VIAL SQ SCH ×5 (02:14→17:26)
[2016-08-26] MEDS: LORazepam 2 MG/ML SYRINGE IV PRN (03:54)
[2016-08-26] MEDS: HALOPERIDOL LACTATE 5 MG/ML 1 ML VIAL IVP PRN ×2 (03:56→12:29)
[2016-08-26 04:23] LABS: Glucose,Whole Blood 229 mg/dL (75-99)
[2016-08-26 05:45] LABS: Basophils # (A) 0.1 k/uL (0-0.2); Basophils % (A) 1 %; CH 29.3; CHCM 29.9; Eosinophils # (A) 0.4 k/uL (0-0.7); Eosinophils % (A) 2 %; HCT 41.1 % (39.0-53.0); HDW 3.36; HGB 12.6 gm/dL (13.0-17.5); Hypochromasia Marked; Luc % (Auto) 1; Lymphocytes # (A) 0.8 k/uL (1.0-4.8); Lymphocytes % (A) 5 %; MCH 30.2 pg (25.0-35.0); MCHC 30.7 g/dL (31.0-37.0); MCV 98.5 fL (80.0-100.0); Mean Platelet Volume 7.5; Monocytes # (A) 0.9 k/uL (0-1.0); Monocytes % (A) 5 %; Neutrophils % (A) 87 %; RBC 4.17 m/uL (4.30-5.90); RDW 14.9 % (11.5-15.5); WBC 17.3 k/uL (3.8-10.6); WBC (Perox) 15.68
[2016-08-26] MEDS: INSULIN GLARGINE 100 UNIT/ML 10 ML VIAL SQ SCH ×2 (05:54→09:37)
[2016-08-26 05:58] LABS: Calcium 9.2 mg/dL (8.4-10.2); Magnesium 1.9 mg/dL (1.6-2.3); Phosphorous 1.5 mg/dL (2.5-4.5); Potassium 3.8 mmol/L (3.5-5.1); Total Protein 6.6 g/dL (6.3-8.2)
[2016-08-26] MEDS: HEPARIN SODIUM,PORCINE 5,000 UNIT/ML 1 ML VIAL IV PRN ×2 (07:17→15:51)
[2016-08-26] MEDS: LEVALBUTEROL NEB 1.25 MG/3 ML AMP INHALATION SCH ×4 (07:17→20:03)
[2016-08-26] MEDS: BUDESONIDE 0.5 MG/2 ML NEBU INHALATION SCH ×2 (07:17→20:03)
[2016-08-26] MEDS: MAGNESIUM SULFATE-D5W PMX 1 GM in DEXTROSE/WATER 1 100ML.BAG IVPB SCH ×2 (08:33→10:04)
[2016-08-26 08:37] LABS: Glucose,Whole Blood 259 mg/dL (75-99)
[2016-08-26] MEDS ORDERED: INSULIN LISPRO (humaLOG) 300 UNIT/3 ML VIAL SQ ONE (09:00)
--- NOTE | 2016-08-26 09:27 | XR ---
EXAMINATION TYPE: XR chest 1V DATE OF EXAM: 08/26/2016 5:54 AM COMPARISON: 08/25/2016 HISTORY: Respiratory distress TECHNIQUE: Single frontal view of the chest is obtained. FINDINGS: Chronic rib deformities on the right are seen with diffuse interstitial pattern in bilater al areas of infiltrate. Surgical change in the epigastrium noted. PICC line stable. IMPRESSION: 1. Bilateral infiltrate and pleural effusion stable. Underlying CHF not excluded.
[2016-08-26] MEDS: FUROSEMIDE 10 MG/ML 4 ML VIAL IV SCH ×3 (09:34→21:10)
[2016-08-26] MEDS: CEFEPIME 2 GM in SODIUM CHLORIDE 0.9% 50 ML IVPB SCH ×2 (09:38→21:09)
[2016-08-26] MEDS: SODIUM CHLORIDE 0.9% 1,000 ML IV SCH (09:39)
[2016-08-26] MEDS: NICOTINE 21MG/24HR PATCH TRANSDERM SCH (09:42)
[2016-08-26] MEDS: PANTOPRAZOLE 40 MG/10 ML VIAL IVP SCH (09:42)
[2016-08-26] MEDS: [UNRECOGNIZED DRUG - REMARK] IV SCH ×8 (10:30)
[2016-08-26 12:07] LABS: Glucose,Whole Blood 244 mg/dL (75-99)
[2016-08-26] MEDS: THIAMINE 100 MG TAB PO SCH (12:14)
[2016-08-26] MEDS: DILTIAZEM 125 MG in SODIUM CHLORIDE 0.9% 100 ML IV SCH ×2 (12:27→19:45)
[2016-08-26] MEDS: POTASSIUM PHOSPHATE 10 MMOL in SODIUM CHLORIDE 0.9% 100 ML IV SCH ×2 (12:29→14:35)
[2016-08-26] MEDS: HEPARIN SODIUM,PORCINE/D5W PMX 25,000 UNIT in DEXTROSE/WATER 1 500ML.BAG IV SCH ×2 (12:30→23:44)
[2016-08-26] MEDS: THIAMINE 100 MG/ML 2 ML VIAL IM SCH ×2 (12:32→15:54)
[2016-08-26] MEDS: DAPTOmycin 500 MG in SODIUM CHLORIDE 0.9% 50 ML IV SCH (15:42)
--- NOTE | 2016-08-26 16:07 | P.PN ---
Subjective Principal diagnosis: TME, Afib with RVR, respiratory failure Patient seen and examined. Patient's and nursing at bedside. The patient is much more agitated today. He is moaning and moving around in bed. The patient states he is uncomfortable. He has had issues with his heart rate controlled today. We'll use Cardizem has been increased per cardiology. Objective - Vital Signs Vital signs: Vital Signs Temp 98.4 F 08/26/16 12:00 Pulse 113 H 08/26/16 16:02 Resp 23 08/26/16 15:00 BP 171/86 08/26/16 15:00 Pulse Ox 95 08/26/16 15:00 Intake & Output 08/25/16 08/26/16 08/26/16 18:59 06:59 18:59 Intake Total 920 5487.808 7391.714 Output Total 2425 1450 560 Balance -1505 24.333 1074.714 Weight 151.1 kg Intake: IV 1141 810 .9 @ 20 140 180 Fat Emulsion 20% 250 ml 231 In Empty Bag 1 bag @ 21 mls/hr IV DAILY@1800 [facility] Rx#:[id number] Mvi, Adult No.4 with Vit 770 630 K 10 ml Trace (Conc-1Ml/ Dose) 1 ml Calcium Gluconate 1,000 mg Sodium Acetate 10 meq Potassium Chloride 14 meq Magnesium Sulfate 4 meq Potassium Phosphate 9 mmol In Amino Acid 5%- D25w 1,000 ml @ 70 mls/hr IV .BY DURATION [facility] Rx#: [id number] Intake, IV Titration 920 333.333 824.714 Amount Calcium Gluconate 1,000 70 mg Sodium Acetate 10 meq Potassium Chloride 14 meq Magnesium Sulfate 4 meq Potassium Phosphate 9 mmol In Amino Acid 5%- D25w 1,000 ml @ 70 mls/hr IV .BY DURATION [facility] Rx#: [id number] Cefepime 2 gm In Sodium 50 Chloride 0.9% 50 ml @ 100 mls/hr IVPB Q12HR [facility] Rx #:[id number] DAPTOmycin 500 mg In 50 Sodium Chloride 0.9% 50 ml @ 100 mls/hr IV Q24H [facility] Rx#:[id number] Diltiazem 125 mg In 172.75 Sodium Chloride 0.9% 100 ml @ 15 MG/HR 15 mls/hr IV .Q8H20M [facility] Rx#: [id number] Fat Emulsion 20% 250 ml 21 In Empty Bag 1 bag @ 21 mls/hr IV MoWeFr@1800 [facility] Rx#:[id number] Heparin Sodium,Porcine/ 100 192.333 451.964 D5w Pmx 25,000 unit In Dextrose/Water 1 500ml. bag @ 6.681 UNITS/KG/HR 20 mls/hr IV .Q24H [facility] Rx #:[id number] Magnesium Sulfate-D5w Pmx 200 1 gm In Dextrose/Water 1 100ml.bag @ 100 mls/hr IVPB Q1H [facility] Rx#: [id number] Mvi, Adult No.4 with Vit 210 K 10 ml Trace (Conc-1Ml/ Dose) 1 ml Calcium Gluconate 1,000 mg Sodium Acetate 10 meq Potassium Chloride 14 meq Magnesium Sulfate 4 meq Potassium Phosphate 9 mmol In Amino Acid 5%- D25w 1,000 ml @ 70 mls/hr IV .BY DURATION [facility] Rx#: [id number] Mvi, Adult No.4 with Vit 150 K 10 ml Trace (Conc-1Ml/ Dose) 1 ml Parenteral Electrolytes 20 ml In Amino Acid 5%-D25w 1,000 ml @ 30 mls/hr IV .Q24H [facility] Rx#:[id number] Potassium Chloride 10 meq 200 Lidocaine 2% Inj 10 mg In Sodium Chloride 0.9% 100 ml @ 100 mls/hr IV Q1HR [facility] Rx#:[id number] Potassium Chloride 20 meq 50 50 In Water For Injection 1 100ml.bag @ 50 mls/hr IVPB ONCE ONE Rx#: [id number] Sodium Chloride 0.9% 1, 110 000 ml @ 10 mls/hr IV . Q24H [facility] Rx#:[id number] Output: Urine 2425 1450 560 Other: Voiding Method Indwelling Catheter Indwelling Catheter Indwelling Catheter - Exam Gen.: Patient is on BiPAP, agitated, arousable, super morbidly obese Cardiovascular: Irregular rate and rhythm, S1/S2 Lungs: Diminished breath sounds at the bases with scattered crackles Abdomen: Soft nontender nondistended positive bowel sounds Extremities: Cellulitis, chronic venous stasis, edema - Labs CBC & Chem 7: 08/26/16 04:55 08/26/16 04:55 Labs: Abnormal Lab Results - Last 24 Hours (Table) 0508/25/16 08/25/16 Range/Units 17:23 20:12 20:15 WBC (3.8-10.6) k/uL RBC (4.30-5.90) m/uL Hgb (13.0-17.5) gm/dL MCHC (31.0-37.0) g/dL Neutrophils # (1.3-7.7) k/uL Lymphocytes # (1.0-4.8) k/uL APTT 32.4 H (22.0-30.0) sec Carbon Dioxide (22-30) mmol/L BUN (9-20) mg/dL Creatinine (0.66-1.25) mg/dL Glucose (74-99) mg/dL POC Glucose (mg/dL) 163 H 193 H (75-99) mg/dL Phosphorus (2.5-4.5) mg/dL ALT (21-72) U/L Albumin (3.5-5.0) g/dL 08/26/16 08/26/16 08/26/16 Range/Units 02:03 04:21 04:55 WBC 17.3 H (3.8-10.6) k/uL RBC 4.17 L (4.30-5.90) m/uL Hgb 12.6 L (13.0-17.5) gm/dL MCHC 30.7 L (31.0-37.0) g/dL Neutrophils # 15.0 H (1.3-7.7) k/uL Lymphocytes # 0.8 L (1.0-4.8) k/uL APTT (22.0-30.0) sec Carbon Dioxide (22-30) mmol/L BUN (9-20) mg/dL Creatinine (0.66-1.25) mg/dL Glucose (74-99) mg/dL POC Glucose (mg/dL) 202 H 229 H (75-99) mg/dL Phosphorus (2.5-4.5) mg/dL ALT (21-72) U/L Albumin (3.5-5.0) g/dL 08/26/16 08/26/16 08/26/16 Range/Units 04:55 05:35 08:35 WBC (3.8-10.6) k/uL RBC (4.30-5.90) m/uL Hgb (13.0-17.5) gm/dL MCHC (31.0-37.0) g/dL Neutrophils # (1.3-7.7) k/uL Lymphocytes # (1.0-4.8) k/uL APTT 30.1 H (22.0-30.0) sec Carbon Dioxide 34 H (22-30) mmol/L BUN 28 H (9-20) mg/dL Creatinine 1.60 H (0.66-1.25) mg/dL Glucose 223 H (74-99) mg/dL POC Glucose (mg/dL) 259 H (75-99) mg/dL Phosphorus 1.5 L (2.5-4.5) mg/dL ALT 19 L (21-72) U/L Albumin 3.0 L (3.5-5.0) g/dL 08/26/16 08/26/16 Range/Units 12:05 14:23 WBC (3.8-10.6) k/uL RBC (4.30-5.90) m/uL Hgb (13.0-17.5) gm/dL MCHC (31.0-37.0) g/dL Neutrophils # (1.3-7.7) k/uL Lymphocytes # (1.0-4.8) k/uL APTT 35.2 H (22.0-30.0) sec Carbon Dioxide (22-30) mmol/L BUN (9-20) mg/dL Creatinine (0.66-1.25) mg/dL Glucose (74-99) mg/dL POC Glucose (mg/dL) 244 H (75-99) mg/dL Phosphorus (2.5-4.5) mg/dL ALT (21-72) U/L Albumin (3.5-5.0) g/dL Microbiology - Last 24 Hours (Table) 08/20/16 14:50 Blood Culture - Preliminary Blood No Growth after 120 hours Assessment and Plan Plan: Acute hypoxic and hypercapnic respiratory failure Acute exacerbation of CHF, diastolic, ejection fraction 60-65% Atrial fibrillation with rapid ventricular response Likely underlying COPD, active tobacco abuse Delirium tremens Coumadin coagulopathy, therapeutic Sepsis Anemia, normochromic normocytic Thrombocytosis Hyperammonemia Lower extremity cellulitis: polymicrobial Diabetic ulcer DM2 Super morbid obesity, concerning for underlying MACO/OHS Toxic metabolic encephalopathy Acute kidney injury on chronic kidney disease Pulmonary hypertension, moderate to severe, RVSP 53 mmHg Peripheral arterial disease Active tobacco abuse Continue BiPAP, ok to trial off for short periods of time Cardizem drip per cardiology team Diuresis, Lasix three times a day Monitor renal function Serial CXR DC Lactulose, monitor ammonia level Bronchodilators and Pulmicort Antibiotics per ID Wound care CIWA protocol NPO while on bipap, continue TPN GI and DVT Prophylaxis: Protonix Monitor INR - initiate heparin drip Start haldol, decrease amount of benzos/opiates patient is receiving Smoking cessation highly recommended, Nicotine TD Prognosis is extremely guarded Progress has been slow Consult neurology is at bedside and is updated to plan of care
[2016-08-26] MEDS ORDERED: ACETAMINOPHEN IV (For NPO) 1,000 MG in EMPTY BAG 1 BAG IVPB PRN (16:09)
[2016-08-26 17:26] LABS: Glucose,Whole Blood 206 mg/dL (75-99)
[2016-08-26] MEDS: COLLAGENASE 250 UNIT/GM OINTMENT 30 GM TUBE TOPICAL SCH (21:09)
--- NOTE | 2016-08-26 22:44 | P.PN ---
Subjective Principal diagnosis: fever cellulitis 61-year-old male with a long-standing history of diabetes mellitus type 2 poorly controlled as well as coronary artery disease congestive heart failure and chronic lower extremity edema. He was recently hospitalized without evidence of an infection to his left leg and heel. He was seen by vascular surgery has been following the wound center. The patient has been on antibiotic therapy with ciprofloxacin. For the isolated pathogens. The patient relates in the days before coming to hospital he started to feel ill. Increasing weakness. Increasing swelling and redness to the leg. An increasing over the left heel. His was trying to get him to come to the hospital for days before he finally came because he became so weak that he could no longer object. Upon arrival to the emergency center temperature 102.2 was noted. He was also having difficulty with worsening arrhythmia with his atrial fibrillation having a rapid ventricular response. He has been seen by cardiology. And there is been improvement of his uncontrolled rhythm. He still feels poorly. He's had fever which is feeling slightly better at this time still has chills. Is concerned about the ongoing ulceration to his left heel. He relates that he has not been offloading it. He can't wear any shoes causes his legs are so swollen. Spends his time in a lazy- boy recliner when he is at home. His had a further decline of his status. He was transferred to the intensive care unit. He had BiPAP in place for worsening respiratory status. The patient became somewhat uncooperative and somnolent. And as noted the patient' s related that he was a heavy drinker. He is on the CIWA protocol and Ativan is being weaned. He is showing improvement Patient is currently resting well in the intensive care unit with BiPAP use. Respiratory status is not improving. Urine output is adequate. No vasopressor therapy. Objective - Vital Signs Vital signs: Vital Signs Temp 100 F H 08/26/16 20:00 Pulse 97 08/26/16 21:00 Resp 18 08/26/16 21:00 BP 136/76 08/26/16 21:00 Pulse Ox 91 L 08/26/16 21:00 Intake & Output 08/26/16 08/26/16 08/27/16 06:59 18:59 06:59 Intake Total 0028.525 0543.714 347.25 Output Total 1450 695 325 Balance 24.333 1309.714 22.25 Weight 151.1 kg Intake: IV 1141 1080 270 .9 @ 20 140 240 60 Fat Emulsion 20% 250 ml 231 In Empty Bag 1 bag @ 21 mls/hr IV DAILY@1800 [facility] Rx#:[id number] Mvi, Adult No.4 with Vit 770 840 210 K 10 ml Trace (Conc-1Ml/ Dose) 1 ml Calcium Gluconate 1,000 mg Sodium Acetate 10 meq Potassium Chloride 14 meq Magnesium Sulfate 4 meq Potassium Phosphate 9 mmol In Amino Acid 5%- D25w 1,000 ml @ 70 mls/hr IV .BY DURATION [facility] Rx#: [id number] Intake, IV Titration 333.333 924.714 77.25 Amount Calcium Gluconate 1,000 70 mg Sodium Acetate 10 meq Potassium Chloride 14 meq Magnesium Sulfate 4 meq Potassium Phosphate 9 mmol In Amino Acid 5%- D25w 1,000 ml @ 70 mls/hr IV .BY DURATION [facility] Rx#: [id number] DAPTOmycin 500 mg In 100 Sodium Chloride 0.9% 50 ml @ 100 mls/hr IV Q24H [facility] Rx#:[id number] Diltiazem 125 mg In 172.75 77.25 Sodium Chloride 0.9% 100 ml @ 15 MG/HR 15 mls/hr IV .Q8H20M [facility] Rx#: [id number] Fat Emulsion 20% 250 ml 21 In Empty Bag 1 bag @ 21 mls/hr IV MoWeFr@1800 [facility] Rx#:[id number] Heparin Sodium,Porcine/ 192.333 451.964 D5w Pmx 25,000 unit In Dextrose/Water 1 500ml. bag @ 6.681 UNITS/KG/HR 20 mls/hr IV .Q24H [facility] Rx #:[id number] Magnesium Sulfate-D5w Pmx 200 1 gm In Dextrose/Water 1 100ml.bag @ 100 mls/hr IVPB Q1H [facility] Rx#: [id number] Potassium Chloride 20 meq 50 In Water For Injection 1 100ml.bag @ 50 mls/hr IVPB ONCE ONE Rx#: [id number] Output: Urine 1450 695 325 Other: Voiding Method Indwelling Catheter Indwelling Catheter - Exam 61 year-old male who suffers from obesity. Remains in the intensive care unit. On BiPAP. HEENT: Anicteric conjunctiva are pink and moist nasal mucosa grossly intact without significant lesions, there is no thrush. Dentition is warm for age. Neck: The neck is supple without significant lymphadenopathy or thyromegaly. Lungs: Symmetrical air entry is noted with evidence of extra wheezes that are scattered. No julian bronchial sounds were noted. No egophony or dullness. Heart: Irregular with an audible S1 and S2, no S3 soft S4, no new murmur click or rub. Abdomen: Obese, Positive bowel sounds soft and nontender without palpable masses or organomegaly. There was no guarding or rebound. Evidence of the prior abdominal surgeries noted. At the most superior aspect of the surgical incision is evidence of some hyper-granulation tissue. At the base of the hyperventilation tissue is exposed mesh. Extremities: There is bilateral lower extremity edema. There some erythema to both lower extremities. Much more prominent on the right lower extremity from the knee distally. There is evidence of the significant ulceration to the heel that measures at 7.1 x 5.2 x 0.3 cm. Neuro: Sedated, opens eyes to stimulation but does not try to communicate. - Labs CBC & Chem 7: 08/26/16 04:55 08/26/16 19:01 Labs: Abnormal Lab Results - Last 24 Hours (Table) 08/26/16 08/26/16 08/26/16 Range/Units 02:03 04:21 04:55 WBC 17.3 H (3.8-10.6) k/uL RBC 4.17 L (4.30-5.90) m/uL Hgb 12.6 L (13.0-17.5) gm/dL MCHC 30.7 L (31.0-37.0) g/dL Neutrophils # 15.0 H (1.3-7.7) k/uL Lymphocytes # 0.8 L (1.0-4.8) k/uL APTT (22.0-30.0) sec Potassium (3.5-5.1) mmol/L Carbon Dioxide (22-30) mmol/L BUN (9-20) mg/dL Creatinine (0.66-1.25) mg/dL Glucose (74-99) mg/dL POC Glucose (mg/dL) 202 H 229 H (75-99) mg/dL Phosphorus (2.5-4.5) mg/dL ALT (21-72) U/L Albumin (3.5-5.0) g/dL 08/26/16 08/26/16 08/26/16 Range/Units 04:55 05:35 08:35 WBC (3.8-10.6) k/uL RBC (4.30-5.90) m/uL Hgb (13.0-17.5) gm/dL MCHC (31.0-37.0) g/dL Neutrophils # (1.3-7.7) k/uL Lymphocytes # (1.0-4.8) k/uL APTT 30.1 H (22.0-30.0) sec Potassium (3.5-5.1) mmol/L Carbon Dioxide 34 H (22-30) mmol/L BUN 28 H (9-20) mg/dL Creatinine 1.60 H (0.66-1.25) mg/dL Glucose 223 H (74-99) mg/dL POC Glucose (mg/dL) 259 H (75-99) mg/dL Phosphorus 1.5 L (2.5-4.5) mg/dL ALT 19 L (21-72) U/L Albumin 3.0 L (3.5-5.0) g/dL 08/26/16 08/26/16 08/26/16 Range/Units 12:05 14:23 17:24 WBC (3.8-10.6) k/uL RBC (4.30-5.90) m/uL Hgb (13.0-17.5) gm/dL MCHC (31.0-37.0) g/dL Neutrophils # (1.3-7.7) k/uL Lymphocytes # (1.0-4.8) k/uL APTT 35.2 H (22.0-30.0) sec Potassium (3.5-5.1) mmol/L Carbon Dioxide (22-30) mmol/L BUN (9-20) mg/dL Creatinine (0.66-1.25) mg/dL Glucose (74-99) mg/dL POC Glucose (mg/dL) 244 H 206 H (75-99) mg/dL Phosphorus (2.5-4.5) mg/dL ALT (21-72) U/L Albumin (3.5-5.0) g/dL 08/26/16 08/26/16 Range/Units 19:01 22:00 WBC (3.8-10.6) k/uL RBC (4.30-5.90) m/uL Hgb (13.0-17.5) gm/dL MCHC (31.0-37.0) g/dL Neutrophils # (1.3-7.7) k/uL Lymphocytes # (1.0-4.8) k/uL APTT 49.2 H (22.0-30.0) sec Potassium 3.4 L (3.5-5.1) mmol/L Carbon Dioxide (22-30) mmol/L BUN (9-20) mg/dL Creatinine (0.66-1.25) mg/dL Glucose (74-99) mg/dL POC Glucose (mg/dL) (75-99) mg/dL Phosphorus (2.5-4.5) mg/dL ALT (21-72) U/L Albumin (3.5-5.0) g/dL Microbiology - Last 24 Hours (Table) 08/20/16 14:50 Blood Culture - Final Blood No Growth after 144 hours Laboratory Results WBC 17.3 k/uL (3.8-10.6) H 08/26/16 04:55 RBC 4.17 m/uL (4.30-5.90) L 08/26/16 04:55 Hgb 12.6 gm/dL (13.0-17.5) L 08/26/16 04:55 Hct 41.1 % (39.0-53.0) 08/26/16 04:55 MCV 98.5 fL (80.0-100.0) 08/26/16 04:55 MCH 30.2 pg (25.0-35.0) 08/26/16 04:55 MCHC 30.7 g/dL (31.0-37.0) L 08/26/16 04:55 RDW 14.9 % (11.5-15.5) 08/26/16 04:55 Plt Count 431 k/uL (150-450) 08/26/16 04:55 Neutrophils % 87 % 08/26/16 04:55 Lymphocytes % 5 % 08/26/16 04:55 Monocytes % 5 % 08/26/16 04:55 Eosinophils % 2 % 08/26/16 04:55 Basophils % 1 % 08/26/16 04:55 Neutrophils # 15.0 k/uL (1.3-7.7) H 08/26/16 04:55 Lymphocytes # 0.8 k/uL (1.0-4.8) L 08/26/16 04:55 Monocytes # 0.9 k/uL (0-1.0) 08/26/16 04:55 Eosinophils # 0.4 k/uL (0-0.7) 08/26/16 04:55 Basophils # 0.1 k/uL (0-0.2) 08/26/16 04:55 Manual Slide Review Performed 08/19/16 07:30 Hypochromasia Marked 08/26/16 04:55 Poikilocytosis Slight 08/23/16 03:57 Macrocytosis Slight 08/25/16 05:27 PT 16.1 sec (9.0-12.0) H 08/25/16 05:27 INR 1.7 (<1.1) 08/25/16 05:27 APTT 49.2 sec (22.0-30.0) H 08/26/16 22:00 Sample Site rrad 08/23/16 09:48 ABG pH 7.35 (7.35-7.45) 08/23/16 09:48 ABG pCO2 55 mmHg (35-45) H 08/23/16 09:48 ABG pO2 92 mmHg (83-108) 08/23/16 09:48 ABG HCO3 30 mmol/L (21-25) H 08/23/16 09:48 ABG Total CO2 31 mmol/L (19-24) H 08/23/16 09:48 ABG O2 Saturation 97.0 % (94-97) 08/23/16 09:48 ABG Base Excess 4.3 mmol/L 08/23/16 09:48 FiO2 40 % 08/23/16 09:48 Sodium 145 mmol/L (137-145) 08/26/16 04:55 Potassium 3.4 mmol/L (3.5-5.1) L 08/26/16 19:01 Chloride 100 mmol/L (98-107) 08/26/16 04:55 Carbon Dioxide 34 mmol/L (22-30) H 08/26/16 04:55 Anion Gap 11 mmol/L 08/26/16 04:55 BUN 28 mg/dL (9-20) H 08/26/16 04:55 Creatinine 1.60 mg/dL (0.66-1.25) H 08/26/16 04:55 Est GFR (MDRD) Af Amer 54 (>60 ml/min/1.73 sqM) 08/26/16 04:55 Est GFR (MDRD) Non-Af 44 (>60 ml/min/1.73 sqM) 08/26/16 04:55 Glucose 223 mg/dL (74-99) H 08/26/16 04:55 POC Glucose (mg/dL) 206 mg/dL (75-99) H 08/26/16 17:24 POC Glu Barge Hand ID Shantelle Mccormack 08/26/16 17:[address] Glu mg/dL 134 mg/dL 08/23/16 09:48 Hemoglobin A1c 6.3 % (4.2-6.1) H 08/23/16 09:48 Plasma Lactic Acid Cristiano 1.1 mmol/L (0.7-2.0) 08/20/16 03:09 Calcium 9.2 mg/dL (8.4-10.2) 08/26/16 04:55 Ionized Calcium Mara 5.0 mg/dL (4.5-5.3) 08/24/16 05:38 Phosphorus 1.5 mg/dL (2.5-4.5) L 08/26/16 04:55 Magnesium 1.9 mg/dL (1.6-2.3) 08/26/16 04:55 Total Bilirubin 1.0 mg/dL (0.2-1.3) 08/26/16 04:55 AST 25 U/L (17-59) 08/26/16 04:55 ALT 19 U/L (21-72) L 08/26/16 04:55 Alkaline Phosphatase 82 U/L (38-126) 08/26/16 04:55 Ammonia 25 umol/L (<30) 08/26/16 04:55 Total Creatine Kinase 209 U/L (55-170) H 08/15/16 11:54 CK-MB (CK-2) 2.9 ng/mL (0.0-2.4) H* 08/15/16 11:54 CK-MB (CK-2) Rel Index 1.4 08/15/16 11:54 Troponin I 0.201 ng/mL (0.000-0.034) H* 08/15/16 11:54 NT-Pro-B Natriuret Pep 7750 pg/mL 08/20/16 03:09 Total Protein 6.6 g/dL (6.3-8.2) 08/26/16 04:55 Albumin 3.0 g/dL (3.5-5.0) L 08/26/16 04:55 Triglycerides 203 mg/dL (<150) H 08/23/16 09:48 TSH 2.480 mIU/L (0.465-4.680) 08/20/16 04:00 Urine Color Yellow 08/20/16 04:20 Urine Appearance Cloudy (Clear) 08/20/16 04:20 Urine pH 5.5 (5.0-8.0) 08/20/16 04:20 Ur Specific [place] 1.014 (1.001-1.035) 08/20/16 04:20 Urine Protein Trace (Negative) H 08/20/16 04:20 Urine Glucose (UA) Negative (Negative) 08/20/16 04:20 Urine Ketones Negative (Negative) 08/20/16 04:20 Urine Blood Trace (Negative) H 08/20/16 04:20 Urine Nitrite Negative (Negative) 08/20/16 04:20 Urine Bilirubin Negative (Negative) 08/20/16 04:20 Urine Urobilinogen <2.0 mg/dL (<2.0) 08/20/16 04:20 Ur Leukocyte Esterase Large (Negative) H 08/20/16 04:20 Urine RBC 10 /hpf (0-5) H 08/20/16 04:20 Urine WBC 2 /hpf (0-5) 08/20/16 04:20 Urine WBC Clumps Rare /hpf (None) H 08/15/16 00:40 Ur Squamous Epith Cells 3 /hpf (0-4) 08/20/16 04:20 Amorphous Sediment Rare /hpf (None) H 08/20/16 04:20 Urine Bacteria Rare /hpf (None) H 08/15/16 00:40 Hyaline Casts 8 /lpf (0-2) H 08/15/16 00:40 Urine Mucus Rare /hpf (None) H 08/20/16 04:20 Vancomycin Trough 31.1 ug/mL H* 08/17/16 23:00 Random Vancomycin 17.0 ug/mL 08/20/16 04:00 Microbiology 08/20/16 14:50 Blood Blood Culture - Final No Growth after 144 hours 08/19/16 11:30 Heel - Right Gram Stain - Final 08/19/16 11:30 Heel - Right Wound Culture - Final Citrobacter freundii Enterococcus faecalis VRE Radhika albicans 08/20/16 04:20 Urine,Catheterized Urine Culture - Final 08/15/16 00:40 Blood Blood Culture - Final No Growth after 144 hours 08/15/16 00:40 Urine,Voided Urine Culture - Final Assessment and Plan (1) Sepsis Narrative/Plan: 61-year-old male who has a history of multiple medical troubles that includes diabetes obesity coronary artery disease and atrial fibrillation. Presents to Hospital feeling very poorly. He had worsening cardiac dysrhythmia his atrial fibrillation and developed a rapid ventricular response. Became weak and ill and constantly remitted to coming to hospital. He is having difficulty with worsening ulceration to his heel. It was noted during his last hospital stay. And is to be getting ongoing care at the wound healing Center. During the last stay it was a goal to have him go to extended care however he refused. And then with therapy he was proving that he was able to get up and move a bit. Despite this he has not been doing well at home. He's been getting worse. He now has marked worsening infection to the right leg. Prior culture shows evidence of MRSA, klebsiella and Proteus infection. Constantly vancomycin and ceftriaxone were given for now until we have further data. Avoid Levaquin use since he is on Coumadin. Patient is chronic medical noncompliance. He has hemoglobin A1c was down to 6.1 Patient has been having difficulties with offloading the heel. A brown air boot is been requested to get up and off the bed at this time. We'll need to have a specialty boot designed the time of his discharge to take weight off of the heel. He will follow the wound healing Center. He' will continue follow- up with the vascular surgeon. Local wound care with Santyl will be utilized given large amount of necrotic material, may need surgical debridement Pain control is improved Atrial fibrillation is controlled. Continues to have leukocytosis but improving with current wound care and antibiotic therapy Creatinine is increased. Ketorolac was discontinued and being monitored. Creatinine remains at 1.6 Was receiving vancomycin therapy. However when the VRE that was isolated this was altered to daptomycin. Wound culture with gram-negative bacilli. Patient does have a remote history of pseudomonal infection. As well as of MRSA. cefepime given the current culture results. Patient receiving BiPAP and has become BiPAP dependent. As discussed with his who is present. We first discussed the possibility of a DO NOT RESUSCITATE order. She does not believe she is quite ready. We discussed that her has not taken good care of himself. In no appears to have chronic respiratory failure there is BiPAP dependent. If he does not improve he may require tracheostomy and chronic ventilator placement. She requests a night to think about what her next steps will be. Strongly again suggested DO NOT RESUSCITATE status and then consider other factors at that time. Concerned to DTs and the alcohol withdrawal protocol was initiated and is being weaned. Patient is not having significant improvement. 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
[2016-08-27] MEDS: POTASSIUM CHLORIDE 10 MEQ in WATER FOR INJECTION 1 100ML.BAG IVPB SCH (00:49)
[2016-08-27] MEDS: INSULIN LISPRO (humaLOG) 300 UNIT/3 ML VIAL SQ SCH ×5 (00:49→23:50)
[2016-08-27 05:22] LABS: Basophils # (A) 0.1 k/uL (0-0.2); Basophils % (A) 1 %; CHCM 29.3; Eosinophils # (A) 0.5 k/uL (0-0.7); Eosinophils % (A) 2 %; HCT 41.4 % (39.0-53.0); HDW 3.15; HGB 12.3 gm/dL (13.0-17.5); Hypochromasia Marked; Luc # (Auto) 0.36; Luc % (Auto) 2; Lymphocytes # (A) 1.1 k/uL (1.0-4.8); Lymphocytes % (A) 6 %; MCH 29.5 pg (25.0-35.0); MCHC 29.7 g/dL (31.0-37.0); MCV 99.5 fL (80.0-100.0); Macrocytosis Slight; Mean Platelet Volume 7.3; Monocytes # (A) 0.8 k/uL (0-1.0); Monocytes % (A) 4 %; Neutrophils # (A) 16.1 k/uL (1.3-7.7); Neutrophils % (A) 85 %; RBC 4.16 m/uL (4.30-5.90); WBC 18.9 k/uL (3.8-10.6); WBC (Perox) 18.95
[2016-08-27] MEDS: DILTIAZEM 125 MG in SODIUM CHLORIDE 0.9% 100 ML IV SCH ×11 (06:09→20:37)
[2016-08-27] MEDS: [UNRECOGNIZED DRUG - REMARK] IV SCH ×24 (06:09→18:33)
[2016-08-27 06:14] LABS: Glucose,Whole Blood 197 mg/dL (75-99)
[2016-08-27 06:36] LABS: Calcium 8.7 mg/dL (8.4-10.2); Phosphorous 2.8 mg/dL (2.5-4.5); Potassium 4.2 mmol/L (3.5-5.1)
[2016-08-27] MEDS: LORazepam 2 MG/ML SYRINGE IV PRN ×5 (07:38→23:57)
[2016-08-27] MEDS: HALOPERIDOL LACTATE 5 MG/ML 1 ML VIAL IVP PRN (08:00)
[2016-08-27] MEDS: SODIUM CHLORIDE 0.9% 1,000 ML IV SCH (08:03)
[2016-08-27] MEDS: NICOTINE 21MG/24HR PATCH TRANSDERM SCH (08:04)
[2016-08-27] MEDS: FUROSEMIDE 10 MG/ML 4 ML VIAL IV SCH ×3 (08:04→21:00)
[2016-08-27] MEDS: PANTOPRAZOLE 40 MG/10 ML VIAL IVP SCH (08:05)
[2016-08-27] MEDS: CEFEPIME 2 GM in SODIUM CHLORIDE 0.9% 50 ML IVPB SCH ×2 (08:11→20:50)
--- NOTE | 2016-08-27 08:12 | P.PN ---
Subjective Principal diagnosis: Lethargy and altered mental status/sepsis. This is a continue progress on a 61-year-old white male essentially admitted to the ICU last week for sepsis. He has an underlying history of diabetes with H fibrillation and chronic cellulitis of the lower extremities with diabetic foot ulcer. He has been on appropriate pressure support and antibiotics but still had significant agitation. He is requiring Ativan to keep him physical stable because he becomes too agitated. Discussion with the yesterday who is not willing to necessary make him palliative care at this time. The patient is not tolerating by mouth diet and is on TPN. I do discuss with her prognosis is worsening secondary to his inability to become more cognizant. Objective - Vital Signs Vital signs: Vital Signs Temp 99.5 F 08/27/16 04:00 Pulse 85 08/27/16 06:00 Resp 21 08/27/16 06:00 BP 121/81 08/27/16 06:00 Pulse Ox 100 08/27/16 06:00 Intake & Output 08/26/16 08/27/16 08/27/16 18:59 06:59 18:59 Intake Total 2004.714 1656.922 34.999 Output Total 695 1600 Balance 1309.714 56.922 34.999 Weight 147.1 kg Intake: IV 1080 1080 .9 @ 20 240 240 Mvi, Adult No.4 with Vit 840 840 K 10 ml Trace (Conc-1Ml/ Dose) 1 ml Calcium Gluconate 1,000 mg Sodium Acetate 10 meq Potassium Chloride 14 meq Magnesium Sulfate 4 meq Potassium Phosphate 9 mmol In Amino Acid 5%- D25w 1,000 ml @ 70 mls/hr IV .BY DURATION [facility] Rx#: [id number] Intake, IV Titration 924.714 576.922 34.999 Amount DAPTOmycin 500 mg In 100 Sodium Chloride 0.9% 50 ml @ 100 mls/hr IV Q24H [facility] Rx#:[id number] Diltiazem 125 mg In 172.75 202.25 34.999 Sodium Chloride 0.9% 100 ml @ 15 MG/HR 15 mls/hr IV .Q8H20M [facility] Rx#: [id number] Heparin Sodium,Porcine/ 451.964 374.672 D5w Pmx 25,000 unit In Dextrose/Water 1 500ml. bag @ 6.681 UNITS/KG/HR 20 mls/hr IV .Q24H [facility] Rx #:[id number] Magnesium Sulfate-D5w Pmx 200 1 gm In Dextrose/Water 1 100ml.bag @ 100 mls/hr IVPB Q1H [facility] Rx#: [id number] Output: Urine 695 1600 Other: Voiding Method Indwelling Catheter Indwelling Catheter - Constitutional General appearance: Present: obese - EENT Eyes: Absent: abnormal pupil - Respiratory Respiratory: bilateral: diminished - Cardiovascular Rhythm: irregularly irregular Heart sounds: normal: S1, S2 - Gastrointestinal General gastrointestinal: Present: soft. Absent: tenderness - Integumentary Integumentary: Present: cellulitis - Psychiatric Psychiatric: Absent: A&O x's 3 - Labs CBC & Chem 7: 08/27/16 05:00 08/27/16 05:00 Labs: Abnormal Lab Results - Last 24 Hours (Table) 08/26/16 08/26/16 08/26/16 Range/Units 08:35 12:05 14:23 WBC (3.8-10.6) k/uL RBC (4.30-5.90) m/uL Hgb (13.0-17.5) gm/dL MCHC (31.0-37.0) g/dL Neutrophils # (1.3-7.7) k/uL APTT 35.2 H (22.0-30.0) sec Potassium (3.5-5.1) mmol/L Carbon Dioxide (22-30) mmol/L BUN (9-20) mg/dL Creatinine (0.66-1.25) mg/dL Glucose (74-99) mg/dL POC Glucose (mg/dL) 259 H 244 H (75-99) mg/dL 08/26/16 08/26/16 08/26/16 Range/Units 17:24 19:01 22:00 WBC (3.8-10.6) k/uL RBC (4.30-5.90) m/uL Hgb (13.0-17.5) gm/dL MCHC (31.0-37.0) g/dL Neutrophils # (1.3-7.7) k/uL APTT 49.2 H (22.0-30.0) sec Potassium 3.4 L (3.5-5.1) mmol/L Carbon Dioxide (22-30) mmol/L BUN (9-20) mg/dL Creatinine (0.66-1.25) mg/dL Glucose (74-99) mg/dL POC Glucose (mg/dL) 206 H (75-99) mg/dL 08/27/16 08/27/16 08/27/16 Range/Units 05:00 05:00 05:00 WBC 18.9 H (3.8-10.6) k/uL RBC 4.16 L (4.30-5.90) m/uL Hgb 12.3 L (13.0-17.5) gm/dL MCHC 29.7 L (31.0-37.0) g/dL Neutrophils # 16.1 H (1.3-7.7) k/uL APTT 48.1 H (22.0-30.0) sec Potassium (3.5-5.1) mmol/L Carbon Dioxide 32 H (22-30) mmol/L BUN 34 H (9-20) mg/dL Creatinine 1.90 H (0.66-1.25) mg/dL Glucose 205 H (74-99) mg/dL POC Glucose (mg/dL) (75-99) mg/dL 08/27/16 Range/Units 06:13 WBC (3.8-10.6) k/uL RBC (4.30-5.90) m/uL Hgb (13.0-17.5) gm/dL MCHC (31.0-37.0) g/dL Neutrophils # (1.3-7.7) k/uL APTT (22.0-30.0) sec Potassium (3.5-5.1) mmol/L Carbon Dioxide (22-30) mmol/L BUN (9-20) mg/dL Creatinine (0.66-1.25) mg/dL Glucose (74-99) mg/dL POC Glucose (mg/dL) 197 H (75-99) mg/dL Microbiology - Last 24 Hours (Table) 08/20/16 14:50 Blood Culture - Final Blood No Growth after 144 hours Assessment and Plan (1) Open wound of both legs with complication Status: Acute (2) Cellulitis of left lower extremity Status: Acute (3) Cellulitis of right leg Status: Acute (4) Illiterate Status: Acute (5) Smoking Status: Acute Plan: Prognosis is worsening secondary to his lack of recovery. Continue supportive care however given the family's wishes. Appreciate infectious disease and pulmonology input. Check CBC and CMP in a.m. Prognosis is quite guarded. Dr. Lilly's group will be covering for the weekend. Time with Patient: Greater than 30
[2016-08-27] MEDS: BUDESONIDE 0.5 MG/2 ML NEBU INHALATION SCH ×2 (08:14→20:18)
[2016-08-27] MEDS: LEVALBUTEROL NEB 1.25 MG/3 ML AMP INHALATION SCH ×4 (08:14→20:18)
[2016-08-27] MEDS: INSULIN GLARGINE 100 UNIT/ML 10 ML VIAL SQ SCH (08:16)
[2016-08-27] MEDS: 1: MVI, ADULT NO.4 WITH VIT K 10 ML, TRACE (CONC-1ML/DOSE) 1 ML, CALCIUM GLUCONATE 1,000 IV SCH ×8 (08:23)
[2016-08-27] MEDS: LACTULOSE 200 GM/300 ML (FROM 1/2 GAL JUG) RECTAL SCH (08:23)
[2016-08-27] MEDS: THIAMINE 100 MG/ML 2 ML VIAL IM SCH ×2 (12:08→16:53)
[2016-08-27 12:17] LABS: Glucose,Whole Blood 190 mg/dL (75-99)
--- NOTE | 2016-08-27 12:42 | PN ---
DATE OF SERVICE: 08/27/2016 Patient is a 61-year-old morbidly obese male who is seen in the ICU, nursing is not at the bedside at the time of the assessment. Patient is on BiPAP, is somewhat difficult to arouse, but did arouse with a mild sternal rub and then just moans. Patient is afebrile, heart rate is currently controlled as the patient is on a Cardizem drip. Patient is in no acute distress. On physical exam, vital signs, temp is 98.2, heart rate 70, respiratory rate 16, blood pressure 126/69, O2 sats 98% on 50% FiO2 on BiPAP. HEENT: Head is normocephalic, atraumatic. Neck is supple. Trachea is midline. Lungs with decreased breath sounds, no clear rales or wheezes. HEART: S1 and S2 are heard, irregular, not tachycardic. ABDOMEN: Soft, obese. Bowel sounds are heard. Extremities with cellulitis, bilateral Christofer wraps, chronic changes from venous insufficiency and discoloration. NEUROLOGIC: Patient is difficult to arouse. LABS: White count is 18.9, hemoglobin is 12.3, hematocrit is 41.4 with 394,000 platelets. Sodium is 141, potassium is 4.2, chloride is 101, CO2 is 32, anion gap is 8. BUN is 34, creatinine is 1.90. Glucose is 205. Calcium is 8.7, phosphorus 2.8. Magnesium 2.0. Ammonia is 23. No new imaging to review. IMPRESSION: 1. Acute hypoxic and hypercapnic respiratory failure. 2. Acute exacerbation of congestive heart failure, diastolic, ejection fraction 60% to 65%. 3. Atrial fibrillation. Rate is currently controlled on Cardizem drip. 4. Likely underlying chronic obstructive pulmonary disease, active tobacco abuse. 5. Delirium tremens. 6. Coumadin coagulopathy, therapeutic. 7. Sepsis. 8. Anemia, normochromic , normocytic. 9. Thrombocytosis. 10. Hyperammonemia. 11. Lower extremity cellulitis, polymicrobial. 12. Diabetic ulcer. 13. Diabetes mellitus type 2. 14. Super morbid obesity. 15. Concern for underlying obstructive sleep apnea/obesity hyperventilation syndrome. 16. Toxic metabolic encephalopathy. 17. Acute kidney injury on chronic kidney disease. 18. Pulmonary hypertension, moderate to severe, RVSP is 53 mmHg, 19. Peripheral arterial disease. 20. Active tobacco abuse. PLAN: 1. Continue current medications which have been reviewed. Continue BiPAP. Continue Cardizem drip per Cardiology. Continue IV Lasix, continue to monitor labs. 2. Will check a chest x-ray in the a.m. Continue bronchodilators and aerosolized steroids. 3. Continue IV antibiotics per Infectious Disease. 4. Continue CIWA protocol, maintain TPN while patient is on BiPAP and n.p.o. 5. Continue GI and DVT prophylaxis. 6. Continue heparin drip. 7. Smoking cessation is highly recommended. 8. Prognosis extremely guarded. 9. Neurology has been consulted. 10. Will follow patient closely with you, making further changes as necessary.
--- NOTE | 2016-08-27 15:26 | P.CNNES ---
History of Present Illness Consult date: 08/27/16 Requesting physician: Kamari Franks Reason for Consult: Altered mental status History of Present Illness: Patient is a 61-year-old male who is being seen by the neurology service on 08/27/2016 per the request of Dr. Franks for altered mental status. Patient has an extensive medical history including chronic atrial fibrillation, diabetes, morbid obesity, hypertension, dyslipidemia, and chronic lower extremity wounds. Patient was brought into [facility] emergency room with complaints of fever and generalized weakness. informs me patient has been hospitalized 3 times in the last 2 months for lower extremity cellulitis. Patient was admitted to the ICU last week for sepsis. Patient is a poor historian. Staff reports patient has been with significant agitation requiring Ativan to keep him stable. informs me he has no history of seizure activity. Reportedly, patient does drink alcohol on a daily basis in the home setting. Patient became lethargic yesterday and extremely agitated. Neurology was consulted. Patient's been treating with BiPAP. Patient does have acute hypoxic and hypercapnic respiratory failure. His CBC showed leukocytosis at 18.9, RBC 4.16, hemoglobin 12.3, hematocrit 41.4. Carbon dioxide level 32. BUN 34 and creatinine 1.9. Regarding patient's confusion, states he has been having some memory issues for the past couple of months. At the time of my evaluation, patient is sitting up in bed in the intensive care unit. Patient is off BiPAP at this time. Patient does follow commands appropriately. No lateralizing weakness is seen. Review of Systems REVIEW OF SYSTEMS: Otherwise unremarkable and noncontributory. Past Medical History Past Medical History: Atrial Fibrillation, Diabetes Mellitus, Eye Disorder, Hearing Disorder / Deafness, Hyperlipidemia, Hypertension, Osteoarthritis (OA), Prostate Disorder, Sleep Apnea/CPAP/BIPAP, Vascular Disorder Additional Past Medical History / Comment(s): Pt fell 01/06/16 R humeral fracture. Other HX: NIDDM, irritable bowel syndrome, numerous wounds bilateral legs and feet and an abdominal wound after previous hernia surgery with mesh - has been tx in wound center and has had several debridements, currently being treated in wound center for bilateral lower leg ulcers, charcot Lfoot, hx of diabetic villareal grade 2 bilateral foot ulcers, abdominal wall ulceration with I&D, urinary calculus., BPH, bilateral hands and feet peripheral neuropathy, L eye astigmatism, edentulous. History of Any Multi-Drug Resistant Organisms: MRSA, VRE Date of last positivie culture/infection: 08/19/16 VRE; 02/15/16 MRSA MDRO Source:: Heel VRE; Legs-MRSA Past Surgical History: Bladder Surgery, Hernia Repair, Tonsillectomy Additional Past Surgical History / Comment(s): I and D abdominal wall ulcer s/p abdominal hernia repair with mesh-infected post op and mesh exposed, wound center tx for bilateral feet ulcers-healed and discharged 03/25/14, current wound center tx for bilateral lower leg ulcers, picc line insertion and removal , cystoscopy which was unsuccessful for removing bladder stone. Past Anesthesia/Blood Transfusion Reactions: No Reported Reaction Past Psychological History: Anxiety, Depression Additional Psychological History / Comment(s): Remains an ongoing daily tobacco smoker. Does have history of occasional alcohol use. Denies difficulty with alcohol use. Denies recreational drug use.He is on medical fpc.To begin travels. No animalexposures. Ambulates with cane. Not able to drive as of late Smoking Status: Current every day smoker Past Alcohol Use History: Occasional Additional Past Alcohol Use History / Comment(s): Pt states he started smoking in 1972 and is about a ppd smoker. Pt states he drinks every couple days- a couple whiskeys. Past Drug Use History: None Reported - Past Family History Brother(s) Family Medical History: Cancer Additional Family Medical History / Comment(s): Breast cancer Father Family Medical History: Diabetes Mellitus Additional Family Medical History / Comment(s): Father of a brain tumor in his early 80s Mother Family Medical History: No Reported History Additional Family Medical History / Comment(s): Still living. Medications and Allergies Home Medications Medication Instructions Recorded Confirmed Type Fenofibrate Nanocrystallized 145 mg PO DAILY 07/27/16 08/15/16 History [Tricor] Finasteride [Proscar] 5 mg PO HS 07/27/16 08/15/16 History Gabapentin [Neurontin] 300 mg PO BID 07/27/16 08/15/16 History Insulin Glargine,Hum.rec.anlog 60 unit SQ HS 07/27/16 08/15/16 History [Lantus Solostar] Metoprolol Tartrate [Lopressor] 100 mg PO BID 07/27/16 08/15/16 History Niacin [Niacin ER] 500 mg PO DAILY 07/27/16 08/15/16 History Tamsulosin HCl [Flomax] 0.4 mg PO QAM 07/27/16 08/15/16 History Allopurinol [Zyloprim] 100 mg PO DAILY 08/15/16 08/15/16 History Furosemide [Lasix] 40 mg PO BID 08/15/16 08/15/16 History Gabapentin [Neurontin] 100 mg PO BID 08/15/16 08/15/16 History Spironolactone [Aldactone] 25 mg PO DAILY 08/15/16 08/15/16 History Warfarin [Coumadin] 1.25 mg PO DAILY 08/15/16 08/15/16 History buPROPion HCL [Wellbutrin XL] 300 mg PO DAILY 08/15/16 08/15/16 History Allergies Allergy/AdvReac Type Severity Reaction Status Date / Time sulfamethoxazole Allergy Rash/Hives Verified 08/15/16 06:20 [From Bactrim] trimethoprim [From Bactrim] Allergy Rash/Hives Verified 08/15/16 06:20 Physical Examination - Vital Signs Vital Signs: Vital Signs Temp Pulse Resp BP Pulse Ox 08/27/16 14:00 95 27 H 131/87 95 08/27/16 13:00 96 25 H 142/86 95 08/27/16 12:00 98.2 F 79 18 142/86 100 08/27/16 11:31 68 08/27/16 11:21 67 08/27/16 11:00 71 17 119/71 98 08/27/16 10:00 78 18 131/69 97 08/27/16 09:00 70 16 126/69 98 08/27/16 08:30 78 08/27/16 08:14 77 08/27/16 08:00 98.2 F 78 20 155/83 98 08/27/16 07:00 69 17 142/75 99 08/27/16 06:00 85 21 121/81 100 08/27/16 05:00 93 25 H 140/78 99 08/27/16 04:00 99.5 F 62 17 109/59 97 08/27/16 03:49 17 08/27/16 03:00 64 16 126/60 98 08/27/16 02:00 60 17 133/67 98 08/27/16 01:00 68 17 112/62 96 08/27/16 00:00 99.9 F H 97 16 113/67 97 08/26/16 23:00 97 18 128/77 96 08/26/16 22:00 79 20 157/87 94 L 08/26/16 21:00 97 18 136/76 91 L 08/26/16 20:20 84 08/26/16 20:04 82 08/26/16 20:00 100 F H 72 18 167/79 94 L 08/26/16 19:00 76 20 143/87 94 L 08/26/16 18:00 88 20 173/93 94 L 08/26/16 17:00 103 H 19 179/86 94 L 08/26/16 16:02 113 H 08/26/16 16:00 100.4 F H 98 22 176/92 96 08/26/16 15:40 103 H 08/26/16 15:00 91 23 171/86 95 Intake and Output 08/26/16 08/27/16 08/27/16 22:59 06:59 14:59 Intake Total 1295.373 1781.672 329.666 Output Total 620 1175 1020 Balance 447.797 44.672 -690.334 Intake: IV 720 720 160 .9 @ 20 160 160 160 Mvi, Adult No.4 with Vit 560 560 K 10 ml Trace (Conc-1Ml/ Dose) 1 ml Calcium Gluconate 1,000 mg Sodium Acetate 10 meq Potassium Chloride 14 meq Magnesium Sulfate 4 meq Potassium Phosphate 9 mmol In Amino Acid 5%- D25w 1,000 ml @ 70 mls/hr IV .BY DURATION [facility] Rx#: [id number] Intake, IV Titration 347.797 499.672 169.666 Amount Cefepime 2 gm In Sodium 50 Chloride 0.9% 50 ml @ 100 mls/hr IVPB Q12HR [facility] Rx #:[id number] DAPTOmycin 500 mg In 100 Sodium Chloride 0.9% 50 ml @ 100 mls/hr IV Q24H [facility] Rx#:[id number] Diltiazem 125 mg In 123.50 125 119.666 Sodium Chloride 0.9% 100 ml @ 15 MG/HR 15 mls/hr IV .Q8H20M [facility] Rx#: [id number] Heparin Sodium,Porcine/ 124.297 374.672 D5w Pmx 25,000 unit In Dextrose/Water 1 500ml. bag @ 6.681 UNITS/KG/HR 20 mls/hr IV .Q24H [facility] Rx #:[id number] Output: Urine 620 1175 1020 Other: Voiding Method Indwelling Catheter Indwelling Catheter Indwelling Catheter Weight 147.1 kg 147.1 kg Patient Weight 08/28/16 06:59 Weight 147.1 kg PHYSICAL EXAM: GENERAL APPEARANCE: Patient is an obese male who appears to be in no acute distress. HEENT: Normocephalic, atraumatic, no facial asymmetry is seen. Neck is supple with no masses felt. CARDIOVASCULAR: Irregular rhythm ABDOMEN: Nontender, obese EXTREMITIES: Bilateral lower extremity edema. No clubbing seen. NEUROLOGICAL EXAM: Patient is awake, alert, and oriented to self only. Patient does follow commands appropriately and language testing is normal. Speech is mildly dysarthric. He does move all 4 extremities to command with no obvious lateralizing weakness seen. Strength appears to be 4-/5 in bilateral lower extremities and 5-/5 in bilateral upper extremities. No facial asymmetry is seen on cranial nerve testing. No tremors or seizure-like activity is seen. Results - Laboratory Findings CBC and BMP: 08/27/16 05:00 08/27/16 12:19 Abnormal Lab Findings: Abnormal Labs 08/15/16 08/15/16 08/15/16 00:40 00:40 00:40 WBC 19.2 H RBC 4.00 L Hgb 12.1 L MCV MCHC 30.7 L Plt Count 458 H Neutrophils # 17.3 H Lymphocytes # 0.7 L PT 23.1 H INR APTT 33.2 H ABG pH ABG pCO2 ABG HCO3 ABG Total CO2 ABG O2 Saturation Sodium Potassium Chloride Carbon Dioxide BUN 25 H Creatinine 1.30 H Glucose 146 H POC Glucose (mg/dL) Hemoglobin A1c Phosphorus Total Bilirubin 1.6 H AST ALT Ammonia Total Creatine Kinase CK-MB (CK-2) Troponin I Total Protein Albumin 3.0 L Triglycerides Urine Protein Urine Ketones Urine Blood Urine Bilirubin Ur Leukocyte Esterase Urine RBC Urine WBC Clumps Ur Squamous Epith Cells Amorphous Sediment Urine Bacteria Hyaline Casts Urine Mucus Vancomycin Trough 08/15/16 08/15/16 08/15/16 00:40 00:40 06:04 WBC RBC Hgb MCV MCHC Plt Count Neutrophils # Lymphocytes # PT INR APTT ABG pH ABG pCO2 ABG HCO3 ABG Total CO2 ABG O2 Saturation Sodium Potassium Chloride Carbon Dioxide BUN Creatinine Glucose POC Glucose (mg/dL) 155 H Hemoglobin A1c Phosphorus Total Bilirubin AST ALT Ammonia Total Creatine Kinase CK-MB (CK-2) Troponin I 0.076 H* Total Protein Albumin Triglycerides Urine Protein 2+ H Urine Ketones Trace H Urine Blood Small H Urine Bilirubin 1+ H Ur Leukocyte Esterase Moderate H Urine RBC 13 H Urine WBC Clumps Rare H Ur Squamous Epith Cells 5 H Amorphous Sediment Urine Bacteria Rare H Hyaline Casts 8 H Urine Mucus Rare H Vancomycin Trough 08/15/16 08/15/16 08/15/16 06:40 11:54 11:56 WBC RBC Hgb MCV MCHC Plt Count Neutrophils # Lymphocytes # PT INR APTT ABG pH ABG pCO2 ABG HCO3 ABG Total CO2 ABG O2 Saturation Sodium Potassium Chloride Carbon Dioxide BUN Creatinine Glucose POC Glucose (mg/dL) 157 H Hemoglobin A1c Phosphorus Total Bilirubin AST ALT Ammonia Total Creatine Kinase 196 H 209 H CK-MB (CK-2) 2.9 H* Troponin I 0.240 H* 0.201 H* Total Protein Albumin Triglycerides Urine Protein Urine Ketones Urine Blood Urine Bilirubin Ur Leukocyte Esterase Urine RBC Urine WBC Clumps Ur Squamous Epith Cells Amorphous Sediment Urine Bacteria Hyaline Casts Urine Mucus Vancomycin Trough 08/15/16 08/15/16 08/16/16 17:03 20:46 10:42 WBC RBC Hgb MCV MCHC Plt Count Neutrophils # Lymphocytes # PT 43.6 H INR APTT ABG pH ABG pCO2 ABG HCO3 ABG Total CO2 ABG O2 Saturation Sodium Potassium Chloride Carbon Dioxide BUN Creatinine Glucose POC Glucose (mg/dL) 123 H 137 H Hemoglobin A1c Phosphorus Total Bilirubin AST ALT Ammonia Total Creatine Kinase CK-MB (CK-2) Troponin I Total Protein Albumin Triglycerides Urine Protein Urine Ketones Urine Blood Urine Bilirubin Ur Leukocyte Esterase Urine RBC Urine WBC Clumps Ur Squamous Epith Cells Amorphous Sediment Urine Bacteria Hyaline Casts Urine Mucus Vancomycin Trough 08/16/16 08/16/16 08/17/16 11:47 12:17 06:53 WBC RBC Hgb MCV MCHC Plt Count Neutrophils # Lymphocytes # PT INR APTT ABG pH ABG pCO2 ABG HCO3 ABG Total CO2 ABG O2 Saturation Sodium Potassium 5.3 H Chloride Carbon Dioxide 20 L BUN 35 H Creatinine 1.53 H Glucose POC Glucose (mg/dL) 63 L 64 L Hemoglobin A1c Phosphorus Total Bilirubin AST ALT Ammonia Total Creatine Kinase CK-MB (CK-2) Troponin I Total Protein Albumin 2.9 L Triglycerides Urine Protein Urine Ketones Urine Blood Urine Bilirubin Ur Leukocyte Esterase Urine RBC Urine WBC Clumps Ur Squamous Epith Cells Amorphous Sediment Urine Bacteria Hyaline Casts Urine Mucus Vancomycin Trough 08/17/16 08/17/16 08/17/16 06:53 06:53 11:29 WBC 14.5 H RBC 4.22 L Hgb 12.6 L MCV 102.9 H MCHC 29.0 L Plt Count 479 H Neutrophils # Lymphocytes # PT 52.1 H INR 5.2 H* APTT ABG pH ABG pCO2 ABG HCO3 ABG Total CO2 ABG O2 Saturation Sodium Potassium Chloride Carbon Dioxide BUN Creatinine Glucose POC Glucose (mg/dL) 150 H Hemoglobin A1c Phosphorus Total Bilirubin AST ALT Ammonia Total Creatine Kinase CK-MB (CK-2) Troponin I Total Protein Albumin Triglycerides Urine Protein Urine Ketones Urine Blood Urine Bilirubin Ur Leukocyte Esterase Urine RBC Urine WBC Clumps Ur Squamous Epith Cells Amorphous Sediment Urine Bacteria Hyaline Casts Urine Mucus Vancomycin Trough 08/17/16 08/17/16 08/17/16 16:23 21:03 23:00 WBC RBC Hgb MCV MCHC Plt Count Neutrophils # Lymphocytes # PT INR APTT ABG pH ABG pCO2 ABG HCO3 ABG Total CO2 ABG O2 Saturation Sodium Potassium Chloride Carbon Dioxide BUN Creatinine Glucose POC Glucose (mg/dL) 194 H 138 H Hemoglobin A1c Phosphorus Total Bilirubin AST ALT Ammonia Total Creatine Kinase CK-MB (CK-2) Troponin I Total Protein Albumin Triglycerides Urine Protein Urine Ketones Urine Blood Urine Bilirubin Ur Leukocyte Esterase Urine RBC Urine WBC Clumps Ur Squamous Epith Cells Amorphous Sediment Urine Bacteria Hyaline Casts Urine Mucus Vancomycin Trough 31.1 H* 08/18/16 08/18/16 08/18/16 07:08 07:08 07:08 WBC 19.6 H RBC 4.08 L Hgb 12.1 L MCV MCHC 29.8 L Plt Count 555 H Neutrophils # Lymphocytes # PT 49.2 H INR APTT ABG pH ABG pCO2 ABG HCO3 ABG Total CO2 ABG O2 Saturation Sodium Potassium Chloride Carbon Dioxide BUN 38 H Creatinine 1.75 H Glucose 41 L* POC Glucose (mg/dL) Hemoglobin A1c Phosphorus Total Bilirubin AST ALT Ammonia Total Creatine Kinase CK-MB (CK-2) Troponin I Total Protein Albumin 2.8 L Triglycerides Urine Protein Urine Ketones Urine Blood Urine Bilirubin Ur Leukocyte Esterase Urine RBC Urine WBC Clumps Ur Squamous Epith Cells Amorphous Sediment Urine Bacteria Hyaline Casts Urine Mucus Vancomycin Trough 08/18/16 08/18/16 08/19/16 17:20 20:08 07:30 WBC RBC Hgb MCV MCHC Plt Count Neutrophils # Lymphocytes # PT INR APTT ABG pH ABG pCO2 ABG HCO3 ABG Total CO2 ABG O2 Saturation Sodium Potassium Chloride Carbon Dioxide BUN 38 H Creatinine 1.89 H Glucose POC Glucose (mg/dL) 59 L 127 H Hemoglobin A1c Phosphorus Total Bilirubin AST ALT Ammonia Total Creatine Kinase CK-MB (CK-2) Troponin I Total Protein Albumin Triglycerides Urine Protein Urine Ketones Urine Blood Urine Bilirubin Ur Leukocyte Esterase Urine RBC Urine WBC Clumps Ur Squamous Epith Cells Amorphous Sediment Urine Bacteria Hyaline Casts Urine Mucus Vancomycin Trough 08/19/16 08/19/16 08/19/16 07:30 07:30 11:24 WBC 12.4 H RBC 3.99 L Hgb 12.3 L MCV MCHC 30.9 L Plt Count 465 H Neutrophils # 9.6 H Lymphocytes # PT 54.6 H INR 5.4 H* APTT ABG pH ABG pCO2 ABG HCO3 ABG Total CO2 ABG O2 Saturation Sodium Potassium Chloride Carbon Dioxide BUN Creatinine Glucose POC Glucose (mg/dL) 117 H Hemoglobin A1c Phosphorus Total Bilirubin AST ALT Ammonia Total Creatine Kinase CK-MB (CK-2) Troponin I Total Protein Albumin Triglycerides Urine Protein Urine Ketones Urine Blood Urine Bilirubin Ur Leukocyte Esterase Urine RBC Urine WBC Clumps Ur Squamous Epith Cells Amorphous Sediment Urine Bacteria Hyaline Casts Urine Mucus Vancomycin Trough 08/19/16 08/19/16 08/20/16 14:41 20:27 02:09 WBC RBC Hgb MCV MCHC Plt Count Neutrophils # Lymphocytes # PT INR APTT ABG pH ABG pCO2 ABG HCO3 ABG Total CO2 ABG O2 Saturation Sodium Potassium Chloride Carbon Dioxide BUN Creatinine Glucose POC Glucose (mg/dL) 110 H 145 H Hemoglobin A1c 6.8 H Phosphorus Total Bilirubin AST ALT Ammonia Total Creatine Kinase CK-MB (CK-2) Troponin I Total Protein Albumin Triglycerides Urine Protein Urine Ketones Urine Blood Urine Bilirubin Ur Leukocyte Esterase Urine RBC Urine WBC Clumps Ur Squamous Epith Cells Amorphous Sediment Urine Bacteria Hyaline Casts Urine Mucus Vancomycin Trough 08/20/16 08/20/16 08/20/16 02:25 03:09 03:09 WBC RBC Hgb MCV MCHC Plt Count Neutrophils # Lymphocytes # PT INR APTT ABG pH ABG pCO2 ABG HCO3 ABG Total CO2 ABG O2 Saturation Sodium Potassium Chloride 108 H Carbon Dioxide BUN 36 H Creatinine 1.66 H Glucose POC Glucose (mg/dL) 69 L Hemoglobin A1c Phosphorus Total Bilirubin AST ALT Ammonia 52 H Total Creatine Kinase CK-MB (CK-2) Troponin I Total Protein Albumin 3.1 L Triglycerides Urine Protein Urine Ketones Urine Blood Urine Bilirubin Ur Leukocyte Esterase Urine RBC Urine WBC Clumps Ur Squamous Epith Cells Amorphous Sediment Urine Bacteria Hyaline Casts Urine Mucus Vancomycin Trough 08/20/16 08/20/16 08/20/16 03:09 03:09 04:20 WBC 18.6 H RBC 4.16 L Hgb 12.7 L MCV MCHC 30.9 L Plt Count 516 H Neutrophils # Lymphocytes # PT 29.7 H INR APTT ABG pH ABG pCO2 ABG HCO3 ABG Total CO2 ABG O2 Saturation Sodium Potassium Chloride Carbon Dioxide BUN Creatinine Glucose POC Glucose (mg/dL) Hemoglobin A1c Phosphorus Total Bilirubin AST ALT Ammonia Total Creatine Kinase CK-MB (CK-2) Troponin I Total Protein Albumin Triglycerides Urine Protein Trace H Urine Ketones Urine Blood Trace H Urine Bilirubin Ur Leukocyte Esterase Large H Urine RBC 10 H Urine WBC Clumps Ur Squamous Epith Cells Amorphous Sediment Rare H Urine Bacteria Hyaline Casts Urine Mucus Rare H Vancomycin Trough 08/20/16 08/20/16 08/20/16 12:46 12:47 13:12 WBC RBC Hgb MCV MCHC Plt Count Neutrophils # Lymphocytes # PT INR APTT ABG pH ABG pCO2 ABG HCO3 ABG Total CO2 ABG O2 Saturation Sodium Potassium Chloride Carbon Dioxide BUN Creatinine Glucose POC Glucose (mg/dL) 54 L 58 L 102 H Hemoglobin A1c Phosphorus Total Bilirubin AST ALT Ammonia Total Creatine Kinase CK-MB (CK-2) Troponin I Total Protein Albumin Triglycerides Urine Protein Urine Ketones Urine Blood Urine Bilirubin Ur Leukocyte Esterase Urine RBC Urine WBC Clumps Ur Squamous Epith Cells Amorphous Sediment Urine Bacteria Hyaline Casts Urine Mucus Vancomycin Trough 08/20/16 08/20/16 08/20/16 16:02 16:33 16:40 WBC RBC Hgb MCV MCHC Plt Count Neutrophils # Lymphocytes # PT INR APTT ABG pH 7.30 L ABG pCO2 56 H ABG HCO3 27 H ABG Total CO2 29 H ABG O2 Saturation 97.2 H Sodium Potassium Chloride Carbon Dioxide BUN Creatinine Glucose POC Glucose (mg/dL) 65 L 100 H Hemoglobin A1c Phosphorus Total Bilirubin AST ALT Ammonia Total Creatine Kinase CK-MB (CK-2) Troponin I Total Protein Albumin Triglycerides Urine Protein Urine Ketones Urine Blood Urine Bilirubin Ur Leukocyte Esterase Urine RBC Urine WBC Clumps Ur Squamous Epith Cells Amorphous Sediment Urine Bacteria Hyaline Casts Urine Mucus Vancomycin Trough 08/21/16 08/21/16 08/21/16 01:11 01:15 04:26 WBC RBC Hgb MCV MCHC Plt Count Neutrophils # Lymphocytes # PT INR APTT ABG pH ABG pCO2 ABG HCO3 ABG Total CO2 ABG O2 Saturation Sodium Potassium Chloride 108 H Carbon Dioxide BUN 31 H Creatinine 1.57 H Glucose POC Glucose (mg/dL) 69 L 74 L Hemoglobin A1c Phosphorus Total Bilirubin AST ALT Ammonia Total Creatine Kinase CK-MB (CK-2) Troponin I Total Protein Albumin 2.8 L Triglycerides Urine Protein Urine Ketones Urine Blood Urine Bilirubin Ur Leukocyte Esterase Urine RBC Urine WBC Clumps Ur Squamous Epith Cells Amorphous Sediment Urine Bacteria Hyaline Casts Urine Mucus Vancomycin Trough 08/21/16 08/21/16 08/21/16 04:26 04:26 04:26 WBC 18.0 H RBC 3.93 L Hgb 11.7 L MCV 100.6 H MCHC 29.7 L Plt Count 521 H Neutrophils # Lymphocytes # PT 16.9 H INR APTT ABG pH ABG pCO2 ABG HCO3 ABG Total CO2 ABG O2 Saturation Sodium Potassium Chloride Carbon Dioxide BUN Creatinine Glucose POC Glucose (mg/dL) Hemoglobin A1c Phosphorus Total Bilirubin AST ALT Ammonia 40 H Total Creatine Kinase CK-MB (CK-2) Troponin I Total Protein Albumin Triglycerides Urine Protein Urine Ketones Urine Blood Urine Bilirubin Ur Leukocyte Esterase Urine RBC Urine WBC Clumps Ur Squamous Epith Cells Amorphous Sediment Urine Bacteria Hyaline Casts Urine Mucus Vancomycin Trough 08/21/16 08/21/16 08/22/16 04:28 09:23 03:57 WBC RBC Hgb MCV MCHC Plt Count Neutrophils # Lymphocytes # PT INR APTT ABG pH 7.31 L ABG pCO2 56 H ABG HCO3 27 H ABG Total CO2 29 H ABG O2 Saturation Sodium Potassium Chloride Carbon Dioxide BUN Creatinine Glucose POC Glucose (mg/dL) 74 L 73 L Hemoglobin A1c Phosphorus Total Bilirubin AST ALT Ammonia Total Creatine Kinase CK-MB (CK-2) Troponin I Total Protein Albumin Triglycerides Urine Protein Urine Ketones Urine Blood Urine Bilirubin Ur Leukocyte Esterase Urine RBC Urine WBC Clumps Ur Squamous Epith Cells Amorphous Sediment Urine Bacteria Hyaline Casts Urine Mucus Vancomycin Trough 08/22/16 08/22/16 08/22/16 05:26 05:26 05:26 WBC 13.9 H RBC 3.93 L Hgb 11.8 L MCV 102.0 H MCHC 29.6 L Plt Count Neutrophils # 11.5 H Lymphocytes # PT INR APTT ABG pH ABG pCO2 ABG HCO3 ABG Total CO2 ABG O2 Saturation Sodium Potassium Chloride Carbon Dioxide BUN 29 H Creatinine 1.60 H Glucose POC Glucose (mg/dL) Hemoglobin A1c Phosphorus Total Bilirubin AST ALT Ammonia 43 H Total Creatine Kinase CK-MB (CK-2) Troponin I Total Protein Albumin Triglycerides Urine Protein Urine Ketones Urine Blood Urine Bilirubin Ur Leukocyte Esterase Urine RBC Urine WBC Clumps Ur Squamous Epith Cells Amorphous Sediment Urine Bacteria Hyaline Casts Urine Mucus Vancomycin Trough 08/22/16 08/23/16 08/23/16 20:10 03:57 03:57 WBC 16.6 H RBC 4.11 L Hgb 12.7 L MCV MCHC Plt Count Neutrophils # 13.8 H Lymphocytes # PT INR APTT ABG pH ABG pCO2 ABG HCO3 ABG Total CO2 ABG O2 Saturation Sodium Potassium Chloride 108 H Carbon Dioxide BUN 30 H Creatinine 1.60 H Glucose 122 H POC Glucose (mg/dL) 102 H Hemoglobin A1c Phosphorus Total Bilirubin AST ALT Ammonia Total Creatine Kinase CK-MB (CK-2) Troponin I Total Protein Albumin Triglycerides Urine Protein Urine Ketones Urine Blood Urine Bilirubin Ur Leukocyte Esterase Urine RBC Urine WBC Clumps Ur Squamous Epith Cells Amorphous Sediment Urine Bacteria Hyaline Casts Urine Mucus Vancomycin Trough 08/23/16 08/23/16 08/23/16 08:02 09:48 09:48 WBC RBC Hgb MCV MCHC Plt Count Neutrophils # Lymphocytes # PT 23.8 H INR APTT ABG pH ABG pCO2 ABG HCO3 ABG Total CO2 ABG O2 Saturation Sodium Potassium Chloride Carbon Dioxide BUN Creatinine Glucose POC Glucose (mg/dL) 135 H Hemoglobin A1c 6.3 H Phosphorus Total Bilirubin AST ALT Ammonia Total Creatine Kinase CK-MB (CK-2) Troponin I Total Protein Albumin Triglycerides Urine Protein Urine Ketones Urine Blood Urine Bilirubin Ur Leukocyte Esterase Urine RBC Urine WBC Clumps Ur Squamous Epith Cells Amorphous Sediment Urine Bacteria Hyaline Casts Urine Mucus Vancomycin Trough 08/23/16 08/23/16 08/23/16 09:48 09:48 09:48 WBC RBC Hgb MCV MCHC Plt Count Neutrophils # Lymphocytes # PT INR APTT ABG pH ABG pCO2 55 H ABG HCO3 30 H ABG Total CO2 31 H ABG O2 Saturation Sodium 146 H Potassium Chloride 108 H Carbon Dioxide BUN 28 H Creatinine 1.54 H Glucose 119 H POC Glucose (mg/dL) Hemoglobin A1c Phosphorus Total Bilirubin AST ALT 18 L Ammonia Total Creatine Kinase CK-MB (CK-2) Troponin I Total Protein Albumin 2.8 L Triglycerides 203 H Urine Protein Urine Ketones Urine Blood Urine Bilirubin Ur Leukocyte Esterase Urine RBC Urine WBC Clumps Ur Squamous Epith Cells Amorphous Sediment Urine Bacteria Hyaline Casts Urine Mucus Vancomycin Trough 08/23/16 08/23/16 08/23/16 11:57 18:00 20:09 WBC RBC Hgb MCV MCHC Plt Count Neutrophils # Lymphocytes # PT INR APTT ABG pH ABG pCO2 ABG HCO3 ABG Total CO2 ABG O2 Saturation Sodium Potassium Chloride 108 H Carbon Dioxide BUN 28 H Creatinine 1.50 H Glucose 127 H POC Glucose (mg/dL) 119 H 146 H Hemoglobin A1c Phosphorus Total Bilirubin AST ALT Ammonia Total Creatine Kinase CK-MB (CK-2) Troponin I Total Protein Albumin Triglycerides Urine Protein Urine Ketones Urine Blood Urine Bilirubin Ur Leukocyte Esterase Urine RBC Urine WBC Clumps Ur Squamous Epith Cells Amorphous Sediment Urine Bacteria Hyaline Casts Urine Mucus Vancomycin Trough 08/24/16 08/24/16 08/24/16 00:09 05:26 05:38 WBC 14.6 H RBC 4.11 L Hgb 12.0 L MCV MCHC 29.7 L Plt Count 481 H Neutrophils # 12.3 H Lymphocytes # 0.9 L PT INR APTT ABG pH ABG pCO2 ABG HCO3 ABG Total CO2 ABG O2 Saturation Sodium Potassium Chloride Carbon Dioxide BUN Creatinine Glucose POC Glucose (mg/dL) 166 H 141 H Hemoglobin A1c Phosphorus Total Bilirubin AST ALT Ammonia Total Creatine Kinase CK-MB (CK-2) Troponin I Total Protein Albumin Triglycerides Urine Protein Urine Ketones Urine Blood Urine Bilirubin Ur Leukocyte Esterase Urine RBC Urine WBC Clumps Ur Squamous Epith Cells Amorphous Sediment Urine Bacteria Hyaline Casts Urine Mucus Vancomycin Trough 08/24/16 08/24/16 08/24/16 05:38 05:38 07:57 WBC RBC Hgb MCV MCHC Plt Count Neutrophils # Lymphocytes # PT 18.1 H INR APTT 33.1 H ABG pH ABG pCO2 ABG HCO3 ABG Total CO2 ABG O2 Saturation Sodium Potassium Chloride Carbon Dioxide 32 H BUN 28 H Creatinine 1.50 H Glucose 167 H POC Glucose (mg/dL) 178 H Hemoglobin A1c Phosphorus Total Bilirubin AST 15 L ALT Ammonia Total Creatine Kinase CK-MB (CK-2) Troponin I Total Protein 6.1 L Albumin 2.6 L Triglycerides Urine Protein Urine Ketones Urine Blood Urine Bilirubin Ur Leukocyte Esterase Urine RBC Urine WBC Clumps Ur Squamous Epith Cells Amorphous Sediment Urine Bacteria Hyaline Casts Urine Mucus Vancomycin Trough 08/24/16 08/24/16 08/24/16 11:43 16:21 20:04 WBC RBC Hgb MCV MCHC Plt Count Neutrophils # Lymphocytes # PT INR APTT ABG pH ABG pCO2 ABG HCO3 ABG Total CO2 ABG O2 Saturation Sodium Potassium Chloride Carbon Dioxide BUN Creatinine Glucose POC Glucose (mg/dL) 151 H 170 H 143 H Hemoglobin A1c Phosphorus Total Bilirubin AST ALT Ammonia Total Creatine Kinase CK-MB (CK-2) Troponin I Total Protein Albumin Triglycerides Urine Protein Urine Ketones Urine Blood Urine Bilirubin Ur Leukocyte Esterase Urine RBC Urine WBC Clumps Ur Squamous Epith Cells Amorphous Sediment Urine Bacteria Hyaline Casts Urine Mucus Vancomycin Trough 08/25/16 08/25/16 08/25/16 00:09 03:55 05:27 WBC 14.0 H RBC 4.06 L Hgb 12.2 L MCV MCHC 30.0 L Plt Count Neutrophils # 11.5 H Lymphocytes # PT INR APTT ABG pH ABG pCO2 ABG HCO3 ABG Total CO2 ABG O2 Saturation Sodium Potassium Chloride Carbon Dioxide BUN Creatinine Glucose POC Glucose (mg/dL) 160 H 155 H Hemoglobin A1c Phosphorus Total Bilirubin AST ALT Ammonia Total Creatine Kinase CK-MB (CK-2) Troponin I Total Protein Albumin Triglycerides Urine Protein Urine Ketones Urine Blood Urine Bilirubin Ur Leukocyte Esterase Urine RBC Urine WBC Clumps Ur Squamous Epith Cells Amorphous Sediment Urine Bacteria Hyaline Casts Urine Mucus Vancomycin Trough 08/25/16 08/25/16 08/25/16 05:27 05:27 08:06 WBC RBC Hgb MCV MCHC Plt Count Neutrophils # Lymphocytes # PT 16.1 H INR APTT 32.3 H ABG pH ABG pCO2 ABG HCO3 ABG Total CO2 ABG O2 Saturation Sodium 146 H Potassium Chloride Carbon Dioxide 35 H BUN 30 H Creatinine 1.56 H Glucose 165 H POC Glucose (mg/dL) 153 H Hemoglobin A1c Phosphorus Total Bilirubin AST ALT Ammonia Total Creatine Kinase CK-MB (CK-2) Troponin I Total Protein Albumin Triglycerides Urine Protein Urine Ketones Urine Blood Urine Bilirubin Ur Leukocyte Esterase Urine RBC Urine WBC Clumps Ur Squamous Epith Cells Amorphous Sediment Urine Bacteria Hyaline Casts Urine Mucus Vancomycin Trough 08/25/16 08/25/16 08/25/16 12:15 17:23 20:12 WBC RBC Hgb MCV MCHC Plt Count Neutrophils # Lymphocytes # PT INR APTT ABG pH ABG pCO2 ABG HCO3 ABG Total CO2 ABG O2 Saturation Sodium Potassium Chloride Carbon Dioxide BUN Creatinine Glucose POC Glucose (mg/dL) 163 H 163 H 193 H Hemoglobin A1c Phosphorus Total Bilirubin AST ALT Ammonia Total Creatine Kinase CK-MB (CK-2) Troponin I Total Protein Albumin Triglycerides Urine Protein Urine Ketones Urine Blood Urine Bilirubin Ur Leukocyte Esterase Urine RBC Urine WBC Clumps Ur Squamous Epith Cells Amorphous Sediment Urine Bacteria Hyaline Casts Urine Mucus Vancomycin Trough 08/25/16 08/26/16 08/26/16 20:15 02:03 04:21 WBC RBC Hgb MCV MCHC Plt Count Neutrophils # Lymphocytes # PT INR APTT 32.4 H ABG pH ABG pCO2 ABG HCO3 ABG Total CO2 ABG O2 Saturation Sodium Potassium Chloride Carbon Dioxide BUN Creatinine Glucose POC Glucose (mg/dL) 202 H 229 H Hemoglobin A1c Phosphorus Total Bilirubin AST ALT Ammonia Total Creatine Kinase CK-MB (CK-2) Troponin I Total Protein Albumin Triglycerides Urine Protein Urine Ketones Urine Blood Urine Bilirubin Ur Leukocyte Esterase Urine RBC Urine WBC Clumps Ur Squamous Epith Cells Amorphous Sediment Urine Bacteria Hyaline Casts Urine Mucus Vancomycin Trough 08/26/16 08/26/16 08/26/16 04:55 04:55 05:35 WBC 17.3 H RBC 4.17 L Hgb 12.6 L MCV MCHC 30.7 L Plt Count Neutrophils # 15.0 H Lymphocytes # 0.8 L PT INR APTT 30.1 H ABG pH ABG pCO2 ABG HCO3 ABG Total CO2 ABG O2 Saturation Sodium Potassium Chloride Carbon Dioxide 34 H BUN 28 H Creatinine 1.60 H Glucose 223 H POC Glucose (mg/dL) Hemoglobin A1c Phosphorus 1.5 L Total Bilirubin AST ALT 19 L Ammonia Total Creatine Kinase CK-MB (CK-2) Troponin I Total Protein Albumin 3.0 L Triglycerides Urine Protein Urine Ketones Urine Blood Urine Bilirubin Ur Leukocyte Esterase Urine RBC Urine WBC Clumps Ur Squamous Epith Cells Amorphous Sediment Urine Bacteria Hyaline Casts Urine Mucus Vancomycin Trough 08/26/16 08/26/16 08/26/16 08:35 12:05 14:23 WBC RBC Hgb MCV MCHC Plt Count Neutrophils # Lymphocytes # PT INR APTT 35.2 H ABG pH ABG pCO2 ABG HCO3 ABG Total CO2 ABG O2 Saturation Sodium Potassium Chloride Carbon Dioxide BUN Creatinine Glucose POC Glucose (mg/dL) 259 H 244 H Hemoglobin A1c Phosphorus Total Bilirubin AST ALT Ammonia Total Creatine Kinase CK-MB (CK-2) Troponin I Total Protein Albumin Triglycerides Urine Protein Urine Ketones Urine Blood Urine Bilirubin Ur Leukocyte Esterase Urine RBC Urine WBC Clumps Ur Squamous Epith Cells Amorphous Sediment Urine Bacteria Hyaline Casts Urine Mucus Vancomycin Trough 08/26/16 08/26/16 08/26/16 17:24 19:01 22:00 WBC RBC Hgb MCV MCHC Plt Count Neutrophils # Lymphocytes # PT INR APTT 49.2 H ABG pH ABG pCO2 ABG HCO3 ABG Total CO2 ABG O2 Saturation Sodium Potassium 3.4 L Chloride Carbon Dioxide BUN Creatinine Glucose POC Glucose (mg/dL) 206 H Hemoglobin A1c Phosphorus Total Bilirubin AST ALT Ammonia Total Creatine Kinase CK-MB (CK-2) Troponin I Total Protein Albumin Triglycerides Urine Protein Urine Ketones Urine Blood Urine Bilirubin Ur Leukocyte Esterase Urine RBC Urine WBC Clumps Ur Squamous Epith Cells Amorphous Sediment Urine Bacteria Hyaline Casts Urine Mucus Vancomycin Trough 08/27/16 08/27/16 08/27/16 05:00 05:00 05:00 WBC 18.9 H RBC 4.16 L Hgb 12.3 L MCV MCHC 29.7 L Plt Count Neutrophils # 16.1 H Lymphocytes # PT INR APTT 48.1 H ABG pH ABG pCO2 ABG HCO3 ABG Total CO2 ABG O2 Saturation Sodium Potassium Chloride Carbon Dioxide 32 H BUN 34 H Creatinine 1.90 H Glucose 205 H POC Glucose (mg/dL) Hemoglobin A1c Phosphorus Total Bilirubin AST ALT Ammonia Total Creatine Kinase CK-MB (CK-2) Troponin I Total Protein Albumin Triglycerides Urine Protein Urine Ketones Urine Blood Urine Bilirubin Ur Leukocyte Esterase Urine RBC Urine WBC Clumps Ur Squamous Epith Cells Amorphous Sediment Urine Bacteria Hyaline Casts Urine Mucus Vancomycin Trough 08/27/16 08/27/16 06:13 12:15 WBC RBC Hgb MCV MCHC Plt Count Neutrophils # Lymphocytes # PT INR APTT ABG pH ABG pCO2 ABG HCO3 ABG Total CO2 ABG O2 Saturation Sodium Potassium Chloride Carbon Dioxide BUN Creatinine Glucose POC Glucose (mg/dL) 197 H 190 H Hemoglobin A1c Phosphorus Total Bilirubin AST ALT Ammonia Total Creatine Kinase CK-MB (CK-2) Troponin I Total Protein Albumin Triglycerides Urine Protein Urine Ketones Urine Blood Urine Bilirubin Ur Leukocyte Esterase Urine RBC Urine WBC Clumps Ur Squamous Epith Cells Amorphous Sediment Urine Bacteria Hyaline Casts Urine Mucus Vancomycin Trough Assessment and Plan Plan: Impression: 1. Altered mental status 2. Acute infectious/metabolic encephalopathy 3. Mild cognitive impairment 4. Cellulitis of the lower extremities with sepsis 5. Pneumonia 6. Atrial fibrillation 7. Diabetes mellitus Recommendations: Patient's confusion is likely due to his current pneumonia and wound infections. As you recall, CT of the brain was negative for any acute process. I will order an EEG to evaluate encephalopathy. I highly doubt seizure activity. We'll continue to monitor patient's mentation as infection clears. If decreased mentation persists once the infection has cleared, he will need further outpatient neurological workup. This will only be done once his medical condition has improved. Continue IV antibiotics and continue BiPAP use as needed. I will continue to follow with you. Further recommendations to follow. Thank you for allowing me to participate in the care of your patient. If you have any questions, please feel free to contact me. I performed an examination of the patient and discussed the management with the HAMMERER HELPER. I have reviewed the HAMMERER HELPER notes and agree with the findings and plan of care.
[2016-08-27] MEDS: DAPTOmycin 500 MG in SODIUM CHLORIDE 0.9% 50 ML IV SCH (16:52)
[2016-08-27] MEDS: FAT EMULSION 20% 250 ML in EMPTY BAG 1 BAG IV SCH (16:53)
[2016-08-27 17:45] LABS: Glucose,Whole Blood 214 mg/dL (75-99)
[2016-08-27] MEDS: COLLAGENASE 250 UNIT/GM OINTMENT 30 GM TUBE TOPICAL SCH (20:50)
--- NOTE | 2016-08-27 23:07 | P.PN ---
Subjective Principal diagnosis: fever cellulitis 61-year-old male with a long-standing history of diabetes mellitus type 2 poorly controlled as well as coronary artery disease congestive heart failure and chronic lower extremity edema. He was recently hospitalized without evidence of an infection to his left leg and heel. He was seen by vascular surgery has been following the wound center. The patient has been on antibiotic therapy with ciprofloxacin. For the isolated pathogens. The patient relates in the days before coming to hospital he started to feel ill. Increasing weakness. Increasing swelling and redness to the leg. An increasing over the left heel. His was trying to get him to come to the hospital for days before he finally came because he became so weak that he could no longer object. Upon arrival to the emergency center temperature 102.2 was noted. He was also having difficulty with worsening arrhythmia with his atrial fibrillation having a rapid ventricular response. He has been seen by cardiology. And there is been improvement of his uncontrolled rhythm. He still feels poorly. He's had fever which is feeling slightly better at this time still has chills. Is concerned about the ongoing ulceration to his left heel. He relates that he has not been offloading it. He can't wear any shoes causes his legs are so swollen. Spends his time in a lazy- boy recliner when he is at home. His had a further decline of his status. He was transferred to the intensive care unit. He had BiPAP in place for worsening respiratory status. The patient became somewhat uncooperative and somnolent. And as noted the patient' s related that he was a heavy drinker. He is on the CIWA protocol and Ativan is being weaned. He is showing improvement Patient has had a mild improvement today. He is less sedated. He is currently off of BiPAP. He has an high flow oxygen. Seems to be comfortable but still remains very confused. Does seem to have some ability to recognize his . This patient was almost completely unintelligible. He is sitting upright in the specialty chair that he seems to find comfortable. Objective - Vital Signs Vital signs: Vital Signs Temp 98.5 F 08/27/16 20:00 Pulse 73 08/27/16 22:00 Resp 21 08/27/16 22:00 BP 133/81 08/27/16 22:00 Pulse Ox 95 08/27/16 22:00 Intake & Output 08/27/16 08/27/16 08/28/16 06:59 18:59 06:59 Intake Total 1656.922 429.666 483 Output Total 1600 1665 700 Balance 56.922 -1235.334 -217 Weight 147.1 kg 147.1 kg Intake: IV 1080 260 60 .9 @ 20 240 260 60 Mvi, Adult No.4 with Vit 840 K 10 ml Trace (Conc-1Ml/ Dose) 1 ml Calcium Gluconate 1,000 mg Sodium Acetate 10 meq Potassium Chloride 14 meq Magnesium Sulfate 4 meq Potassium Phosphate 9 mmol In Amino Acid 5%- D25w 1,000 ml @ 70 mls/hr IV .BY DURATION CARLOS Rx#: [id number] Intake, IV Titration 576.922 169.666 423 Amount Cefepime 2 gm In Sodium 50 50 Chloride 0.9% 50 ml @ 100 mls/hr IVPB Q12HR CARL[facility] Rx #:[id number] DAPTOmycin 500 mg In 100 Sodium Chloride 0.9% 50 ml @ 100 mls/hr IV Q24H [facility] Rx#:[id number] Diltiazem 125 mg In 202.25 119.666 Sodium Chloride 0.9% 100 ml @ 15 MG/HR 15 mls/hr IV .Q8H20M [facility] Rx#: [id number] Fat Emulsion 20% 250 ml 63 In Empty Bag 1 bag @ 21 mls/hr IV MoWeFr@1800 CARL[facility] Rx#:[id number] Heparin Sodium,Porcine/ 374.672 D5w Pmx 25,000 unit In Dextrose/Water 1 500ml. bag @ 6.681 UNITS/KG/HR 20 mls/hr IV .Q24H CARL[facility] Rx #:[id number] Mvi, Adult No.4 with Vit 210 K 10 ml Trace (Conc-1Ml/ Dose) 1 ml Calcium Gluconate 750 mg Sodium Chloride 4Meq/ml Vial 10 meq Potassium Acetate 10 meq Magnesium Sulfate 4 meq Potassium Phosphate 15 mmol In Amino Acid 5%- D25w 1,000 ml @ 70 mls/hr IV .BY DURATION CARLOS Rx#: [id number] Output: Urine 1600 1665 700 Other: Voiding Method Indwelling Catheter Indwelling Catheter Indwelling Catheter - Exam 61 year-old male who suffers from obesity. Remains in the intensive care unit. He is currently on high flow oxygen not BiPAP. HEENT: Anicteric conjunctiva are pink and moist nasal mucosa grossly intact without significant lesions, there is no thrush. Dentition is warm for age. Neck: The neck is supple without significant lymphadenopathy or thyromegaly. Lungs: Symmetrical air entry is noted with evidence of extra wheezes that are scattered. No julian bronchial sounds were noted. No egophony or dullness. Heart: Irregular with an audible S1 and S2, no S3 soft S4, no new murmur click or rub. Abdomen: Obese, Positive bowel sounds soft and nontender without palpable masses or organomegaly. There was no guarding or rebound. Evidence of the prior abdominal surgeries noted. At the most superior aspect of the surgical incision is evidence of some hyper-granulation tissue. At the base of the hyperventilation tissue is exposed mesh. Extremities: There is bilateral lower extremity edema. There some erythema to both lower extremities. Much more prominent on the right lower extremity from the knee distally. There is evidence of the significant ulceration to the heel that measures at 7.1 x 5.2 x 0.3 cm. Neuro:He is sitting in the specialty chair. Does open eyes. Seems to recognize his . However his speech is a most completely unintelligible. He is not nearly as agitated. - Labs CBC & Chem 7: 08/27/16 05:00 08/27/16 12:19 Labs: Abnormal Lab Results - Last 24 Hours (Table) 08/27/16 08/27/16 08/27/16 Range/Units 05:00 05:00 05:00 WBC 18.9 H (3.8-10.6) k/uL RBC 4.16 L (4.30-5.90) m/uL Hgb 12.3 L (13.0-17.5) gm/dL MCHC 29.7 L (31.0-37.0) g/dL Neutrophils # 16.1 H (1.3-7.7) k/uL APTT 48.1 H (22.0-30.0) sec Carbon Dioxide 32 H (22-30) mmol/L BUN 34 H (9-20) mg/dL Creatinine 1.90 H (0.66-1.25) mg/dL Glucose 205 H (74-99) mg/dL POC Glucose (mg/dL) (75-99) mg/dL 08/27/16 08/27/16 08/27/16 Range/Units 06:13 12:15 17:42 WBC (3.8-10.6) k/uL RBC (4.30-5.90) m/uL Hgb (13.0-17.5) gm/dL MCHC (31.0-37.0) g/dL Neutrophils # (1.3-7.7) k/uL APTT (22.0-30.0) sec Carbon Dioxide (22-30) mmol/L BUN (9-20) mg/dL Creatinine (0.66-1.25) mg/dL Glucose (74-99) mg/dL POC Glucose (mg/dL) 197 H 190 H 214 H (75-99) mg/dL Laboratory Results WBC 18.9 k/uL (3.8-10.6) H 08/27/16 05:00 RBC 4.16 m/uL (4.30-5.90) L 08/27/16 05:00 Hgb 12.3 gm/dL (13.0-17.5) L 08/27/16 05:00 Hct 41.4 % (39.0-53.0) 08/27/16 05:00 MCV 99.5 fL (80.0-100.0) 08/27/16 05:00 MCH 29.5 pg (25.0-35.0) 08/27/16 05:00 MCHC 29.7 g/dL (31.0-37.0) L 08/27/16 05:00 RDW 15.0 % (11.5-15.5) 08/27/16 05:00 Plt Count 394 k/uL (150-450) 08/27/16 05:00 Neutrophils % 85 % 08/27/16 05:00 Lymphocytes % 6 % 08/27/16 05:00 Monocytes % 4 % 08/27/16 05:00 Eosinophils % 2 % 08/27/16 05:00 Basophils % 1 % 08/27/16 05:00 Neutrophils # 16.1 k/uL (1.3-7.7) H 08/27/16 05:00 Lymphocytes # 1.1 k/uL (1.0-4.8) 08/27/16 05:00 Monocytes # 0.8 k/uL (0-1.0) 08/27/16 05:00 Eosinophils # 0.5 k/uL (0-0.7) 08/27/16 05:00 Basophils # 0.1 k/uL (0-0.2) 08/27/16 05:00 Manual Slide Review Performed 08/19/16 07:30 Hypochromasia Marked 08/27/16 05:00 Poikilocytosis Slight 08/23/16 03:57 Macrocytosis Slight 08/27/16 05:00 PT 16.1 sec (9.0-12.0) H 08/25/16 05:27 INR 1.7 (<1.1) 08/25/16 05:27 APTT 48.1 sec (22.0-30.0) H 08/27/16 05:00 Sample Site rrad 08/23/16 09:48 ABG pH 7.35 (7.35-7.45) 08/23/16 09:48 ABG pCO2 55 mmHg (35-45) H 08/23/16 09:48 ABG pO2 92 mmHg (83-108) 08/23/16 09:48 ABG HCO3 30 mmol/L (21-25) H 08/23/16 09:48 ABG Total CO2 31 mmol/L (19-24) H 08/23/16 09:48 ABG O2 Saturation 97.0 % (94-97) 08/23/16 09:48 ABG Base Excess 4.3 mmol/L 08/23/16 09:48 FiO2 40 % 08/23/16 09:48 Sodium 141 mmol/L (137-145) 08/27/16 05:00 Potassium 3.9 mmol/L (3.5-5.1) 08/27/16 12:19 Chloride 101 mmol/L (98-107) 08/27/16 05:00 Carbon Dioxide 32 mmol/L (22-30) H 08/27/16 05:00 Anion Gap 8 mmol/L 08/27/16 05:00 BUN 34 mg/dL (9-20) H 08/27/16 05:00 Creatinine 1.90 mg/dL (0.66-1.25) H 08/27/16 05:00 Est GFR (MDRD) Af Amer 44 (>60 ml/min/1.73 sqM) 08/27/16 05:00 Est GFR (MDRD) Non-Af 36 (>60 ml/min/1.73 sqM) 08/27/16 05:00 Glucose 205 mg/dL (74-99) H 08/27/16 05:00 POC Glucose (mg/dL) 214 mg/dL (75-99) H 08/27/16 17:42 POC Glu Credit Specialist ID Teto Morales 08/27/16 17:[address] Glu mg/dL 134 mg/dL 08/23/16 09:48 Hemoglobin A1c 6.3 % (4.2-6.1) H 08/23/16 09:48 Plasma Lactic Acid Cristiano 1.1 mmol/L (0.7-2.0) 08/20/16 03:09 Calcium 8.7 mg/dL (8.4-10.2) 08/27/16 05:00 Ionized Calcium Mara 5.0 mg/dL (4.5-5.3) 08/24/16 05:38 Phosphorus 2.8 mg/dL (2.5-4.5) 08/27/16 05:00 Magnesium 2.0 mg/dL (1.6-2.3) 08/27/16 05:00 Total Bilirubin 1.0 mg/dL (0.2-1.3) 08/26/16 04:55 AST 25 U/L (17-59) 08/26/16 04:55 ALT 19 U/L (21-72) L 08/26/16 04:55 Alkaline Phosphatase 82 U/L (38-126) 08/26/16 04:55 Ammonia 23 umol/L (<30) 08/27/16 05:00 Total Creatine Kinase 209 U/L (55-170) H 08/15/16 11:54 CK-MB (CK-2) 2.9 ng/mL (0.0-2.4) H* 08/15/16 11:54 CK-MB (CK-2) Rel Index 1.4 08/15/16 11:54 Troponin I 0.201 ng/mL (0.000-0.034) H* 08/15/16 11:54 NT-Pro-B Natriuret Pep 7750 pg/mL 08/20/16 03:09 Total Protein 6.6 g/dL (6.3-8.2) 08/26/16 04:55 Albumin 3.0 g/dL (3.5-5.0) L 08/26/16 04:55 Triglycerides 203 mg/dL (<150) H 08/23/16 09:48 TSH 2.480 mIU/L (0.465-4.680) 08/20/16 04:00 Urine Color Yellow 08/20/16 04:20 Urine Appearance Cloudy (Clear) 08/20/16 04:20 Urine pH 5.5 (5.0-8.0) 08/20/16 04:20 Ur Specific [place] 1.014 (1.001-1.035) 08/20/16 04:20 Urine Protein Trace (Negative) H 08/20/16 04:20 Urine Glucose (UA) Negative (Negative) 08/20/16 04:20 Urine Ketones Negative (Negative) 08/20/16 04:20 Urine Blood Trace (Negative) H 08/20/16 04:20 Urine Nitrite Negative (Negative) 08/20/16 04:20 Urine Bilirubin Negative (Negative) 08/20/16 04:20 Urine Urobilinogen <2.0 mg/dL (<2.0) 08/20/16 04:20 Ur Leukocyte Esterase Large (Negative) H 08/20/16 04:20 Urine RBC 10 /hpf (0-5) H 08/20/16 04:20 Urine WBC 2 /hpf (0-5) 08/20/16 04:20 Urine WBC Clumps Rare /hpf (None) H 08/15/16 00:40 Ur Squamous Epith Cells 3 /hpf (0-4) 08/20/16 04:20 Amorphous Sediment Rare /hpf (None) H 08/20/16 04:20 Urine Bacteria Rare /hpf (None) H 08/15/16 00:40 Hyaline Casts 8 /lpf (0-2) H 08/15/16 00:40 Urine Mucus Rare /hpf (None) H 08/20/16 04:20 Vancomycin Trough 31.1 ug/mL H* 08/17/16 23:00 Random Vancomycin 17.0 ug/mL 08/20/16 04:00 Microbiology 08/20/16 14:50 Blood Blood Culture - Final No Growth after 144 hours 08/19/16 11:30 Heel - Right Gram Stain - Final 08/19/16 11:30 Heel - Right Wound Culture - Final Citrobacter freundii Enterococcus faecalis VRE Radhika albicans 08/20/16 04:20 Urine,Catheterized Urine Culture - Final 08/15/16 00:40 Blood Blood Culture - Final No Growth after 144 hours 08/15/16 00:40 Urine,Voided Urine Culture - Final Assessment and Plan (1) Sepsis Narrative/Plan: 61-year-old male who has a history of multiple medical troubles that includes diabetes obesity coronary artery disease and atrial fibrillation. Presents to Hospital feeling very poorly. He had worsening cardiac dysrhythmia his atrial fibrillation and developed a rapid ventricular response. Became weak and ill and constantly remitted to coming to hospital. He is having difficulty with worsening ulceration to his heel. It was noted during his last hospital stay. And is to be getting ongoing care at the wound healing Center. During the last stay it was a goal to have him go to extended care however he refused. And then with therapy he was proving that he was able to get up and move a bit. Despite this he has not been doing well at home. He's been getting worse. He now has marked worsening infection to the right leg. Prior culture shows evidence of MRSA, klebsiella and Proteus infection. Constantly vancomycin and ceftriaxone were given for now until we have further data. Avoid Levaquin use since he is on Coumadin. Patient is chronic medical noncompliance. He has hemoglobin A1c was down to 6.1 Patient has been having difficulties with offloading the heel. A brown air boot is been requested to get up and off the bed at this time. We'll need to have a specialty boot designed the time of his discharge to take weight off of the heel. He will follow the wound healing Center. He' will continue follow- up with the vascular surgeon. Local wound care with Santyl will be utilized given large amount of necrotic material, may need surgical debridement Pain control is improved Atrial fibrillation is controlled. Continues to have leukocytosis but improving with current wound care and antibiotic therapy Creatinine is increased. Ketorolac was discontinued and being monitored. Creatinine remains at 1.6 Was receiving vancomycin therapy. However when the VRE that was isolated this was altered to daptomycin. Wound culture with gram-negative bacilli. Patient does have a remote history of pseudomonal infection. As well as of MRSA. cefepime given the current culture results. Patient receiving BiPAP and has become BiPAP dependent. Yesterday it was discussed with his who is present. We first discussed the possibility of a DO NOT RESUSCITATE order. She does not believe she is quite ready. We discussed that her has not taken good care of himself. In no appears to have chronic respiratory failure there is BiPAP dependent. If he does not improve he may require tracheostomy and chronic ventilator placement. Fortunately has had a slight improvement in his status today. The issue is slightly less pressing. However DO NOT RESUSCITATE order is still appropriate. She will discuss this with her son will be in town for the weekend. Continue care otherwise. Concerned to DTs and the alcohol withdrawal protocol was initiated and is being weaned. 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
[2016-08-27 23:51] LABS: Glucose,Whole Blood 207 mg/dL (75-99)
[2016-08-27] MEDS: MORPHINE SULFATE 4 MG/ML SYRINGE IV PRN (23:58)
[2016-08-28] MEDS: HALOPERIDOL LACTATE 5 MG/ML 1 ML VIAL IVP PRN ×2 (00:37→04:21)
[2016-08-28] MEDS: LORazepam 2 MG/ML SYRINGE IV PRN ×2 (01:12→04:21)
[2016-08-28] MEDS: MORPHINE SULFATE 4 MG/ML SYRINGE IV PRN ×2 (02:58→06:00)
[2016-08-28] MEDS: DILTIAZEM 125 MG in SODIUM CHLORIDE 0.9% 100 ML IV SCH ×3 (04:24→22:41)
[2016-08-28 04:33] LABS: Basophils # (A) 0.1 k/uL (0-0.2); Basophils % (A) 1 %; CH 29.3; CHCM 30.4; Eosinophils # (A) 0.4 k/uL (0-0.7); Eosinophils % (A) 2 %; HDW 3.41; HGB 11.9 gm/dL (13.0-17.5); Hypochromasia Marked; Luc # (Auto) 0.39; Luc % (Auto) 2; Lymphocytes # (A) 1.3 k/uL (1.0-4.8); Lymphocytes % (A) 8 %; MCH 30.3 pg (25.0-35.0); MCHC 31.3 g/dL (31.0-37.0); MCV 96.6 fL (80.0-100.0); Mean Platelet Volume 7.7; Monocytes % (A) 6 %; Neutrophils # (A) 14.2 k/uL (1.3-7.7); Neutrophils % (A) 82 %; Poikilocytosis Slight; RBC 3.93 m/uL (4.30-5.90); RDW 15.1 % (11.5-15.5); WBC 17.4 k/uL (3.8-10.6); WBC (Perox) 15.85
[2016-08-28 05:41] LABS: Calcium 8.9 mg/dL (8.4-10.2); Magnesium 1.7 mg/dL (1.6-2.3); Potassium 3.7 mmol/L (3.5-5.1)
[2016-08-28] MEDS ORDERED: Magnesium Replacement Protocol 1 EACH MISC MISCELLANE PRN (05:58)
[2016-08-28] MEDS ORDERED: Potassium Replacement Protocol 1 EACH MISC MISCELLANE PRN (05:58)
[2016-08-28] MEDS: INSULIN LISPRO (humaLOG) 300 UNIT/3 ML VIAL SQ SCH ×3 (06:01→17:24)
[2016-08-28] MEDS: POTASSIUM CHLORIDE 10 MEQ, LIDOCAINE 2% INJ 10 MG in SODIUM CHLORIDE 0.9% 100 ML IV SCH ×2 (08:39→09:59)
[2016-08-28] MEDS: CEFEPIME 2 GM in SODIUM CHLORIDE 0.9% 50 ML IVPB SCH ×2 (08:42→22:40)
[2016-08-28] MEDS: PANTOPRAZOLE 40 MG/10 ML VIAL IVP SCH (08:42)
[2016-08-28] MEDS: MAGNESIUM SULFATE-D5W PMX 1 GM in DEXTROSE/WATER 1 100ML.BAG IVPB SCH ×2 (09:58→10:33)
[2016-08-28] MEDS: INSULIN GLARGINE 100 UNIT/ML 10 ML VIAL SQ SCH (10:03)
[2016-08-28 10:05] LABS: Glucose,Whole Blood 232 mg/dL (75-99)
[2016-08-28] MEDS: [UNRECOGNIZED DRUG - REMARK] IV SCH ×8 (10:31)
[2016-08-28] MEDS: SODIUM CHLORIDE 0.9% 1,000 ML IV SCH (10:33)
[2016-08-28] MEDS: BUDESONIDE 0.5 MG/2 ML NEBU INHALATION SCH ×2 (11:16→19:48)
[2016-08-28] MEDS: LEVALBUTEROL NEB 1.25 MG/3 ML AMP INHALATION SCH ×5 (11:16→19:48)
--- NOTE | 2016-08-28 12:06 | P.PN ---
Subjective Principal diagnosis: Patient is a 61-year-old male who is being followed by the neurology service for altered mental status. Patient has extensive medical history including chronic atrial fibrillation, diabetes, morbid obesity, hypertension, dyslipidemia, and chronic lower extremity ulcers. Patient was admitted to the ICU last week for sepsis. Patient began exhibiting significant agitation requiring Ativan to keep him stable. Patient does have acute hypoxic and hypercapnic respiratory failure. Patient is on BiPAP and is using it intermittently at this point. Infectious disease is following for his sepsis. Agitation and confusion seems to be clearing. Patient does have history of EtOH abuse and was on withdrawal protocol. Patient is now past withdrawal time frame. Patient's mentation appears to be improving. At the time of my evaluation, patient's resting comfortably in bed and appears to be in no acute distress. Objective - Vital Signs Vital signs: Vital Signs Temp 98.5 F 08/28/16 00:00 Pulse 98 08/28/16 06:00 Resp 25 H 08/28/16 06:00 BP 178/88 08/28/16 06:00 Pulse Ox 99 08/28/16 06:00 Intake & Output 08/27/16 08/28/16 08/28/16 18:59 06:59 18:59 Intake Total 291.021 5278 Output Total 1665 2025 Balance -1235.334 -154 Weight 147.1 kg 152.5 kg Intake: IV 260 220 .9 @ 20 260 220 Intake, IV Titration 267.732 0407 Amount Cefepime 2 gm In Sodium 50 50 Chloride 0.9% 50 ml @ 100 mls/hr IVPB Q12HR [facility] Rx #:[id number] DAPTOmycin 500 mg In 100 Sodium Chloride 0.9% 50 ml @ 100 mls/hr IV Q24H [facility] Rx#:[id number] Diltiazem 125 mg In 119.666 Sodium Chloride 0.9% 100 ml @ 15 MG/HR 15 mls/hr IV .Q8H20M [facility] Rx#: [id number] Fat Emulsion 20% 250 ml 231 In Empty Bag 1 bag @ 21 mls/hr IV [id number] [facility] Rx#:[id number] Heparin Sodium,Porcine/ 500 D5w Pmx 25,000 unit In Dextrose/Water 1 500ml. bag @ 6.681 UNITS/KG/HR 20 mls/hr IV .Q24H [facility] Rx #:[id number] Mvi, Adult No.4 with Vit 770 K 10 ml Trace (Conc-1Ml/ Dose) 1 ml Calcium Gluconate 750 mg Sodium Chloride 4Meq/ml Vial 10 meq Potassium Acetate 10 meq Magnesium Sulfate 4 meq Potassium Phosphate 15 mmol In Amino Acid 5%- D25w 1,000 ml @ 70 mls/hr IV .BY DURATION [facility] Rx#: [id number] Output: Urine 1664 2024 Other: Voiding Method Indwelling Catheter Indwelling Catheter - Exam PHYSICAL EXAM: GENERAL APPEARANCE: Patient is an obese male who appears to be in no acute distress and is in the ICU. HEENT: Normocephalic, atraumatic, no facial asymmetry is seen. Neck is supple with no masses felt. CARDIOVASCULAR: Regular rate and rhythm. ABDOMEN: Nontender, obese EXTREMITIES: Lower extremity edema without clubbing area NEUROLOGICAL EXAM: Patient is awake, alert, and oriented 2. Patient is unaware of what year this is. Patient follows commands appropriately. Speech and language are normal. Speech is dysarthric most likely related to dry mouth. Patient expresses frustration with all the questions being asked of him. No obvious lateralizing weakness is seen. Strength appears to be 4-/5 in all 4 extremities. No facial asymmetry is seen on cranial nerve testing. No tremors or seizure-like activity is noted. - Labs CBC & Chem 7: 08/28/16 04:13 08/28/16 04:13 Labs: Abnormal Lab Results - Last 24 Hours (Table) 08/27/16 08/27/16 08/27/16 Range/Units 12:15 17:42 23:49 WBC (3.8-10.6) k/uL RBC (4.30-5.90) m/uL Hgb (13.0-17.5) gm/dL Hct (39.0-53.0) % Neutrophils # (1.3-7.7) k/uL APTT (22.0-30.0) sec Chloride (98-107) mmol/L BUN (9-20) mg/dL Creatinine (0.66-1.25) mg/dL Glucose (74-99) mg/dL POC Glucose (mg/dL) 190 H 214 H 207 H (75-99) mg/dL 08/28/16 08/28/16 08/28/16 Range/Units 04:13 04:13 04:13 WBC 17.4 H (3.8-10.6) k/uL RBC 3.93 L (4.30-5.90) m/uL Hgb 11.9 L (13.0-17.5) gm/dL Hct 38.0 L (39.0-53.0) % Neutrophils # 14.2 H (1.3-7.7) k/uL APTT 43.0 H (22.0-30.0) sec Chloride 97 L (98-107) mmol/L BUN 39 H (9-20) mg/dL Creatinine 2.00 H (0.66-1.25) mg/dL Glucose 248 H (74-99) mg/dL POC Glucose (mg/dL) (75-99) mg/dL 08/28/16 Range/Units 10:02 WBC (3.8-10.6) k/uL RBC (4.30-5.90) m/uL Hgb (13.0-17.5) gm/dL Hct (39.0-53.0) % Neutrophils # (1.3-7.7) k/uL APTT (22.0-30.0) sec Chloride (98-107) mmol/L BUN (9-20) mg/dL Creatinine (0.66-1.25) mg/dL Glucose (74-99) mg/dL POC Glucose (mg/dL) 232 H (75-99) mg/dL Assessment and Plan Plan: Impression: 1. Sepsis 2. Acute infectious/metabolic encephalopathy 3. Mild cognitive impairment 4. Cellulitis of the lower extremities with sepsis 5. Pneumonia 6. Atrial fibrillation 7. Diabetes mellitus Recommendations: Patient's confusion is likely due to sepsis. Confusion seems to be improving. Computed tomography scan was negative for any acute process. If significant change in mental status, I would repeat a stat CT. I will order an EEG to evaluate encephalopathy. I highly doubt seizure activity. I expect improvement in mentation as infection clears. If decreased mentation persists once the infection has cleared, he will need further outpatient neurological workup. This will only be done once his medical condition has improved. Continue current medical management and continue BiPAP use as needed. barring any pathology on the EEG, I will continue to follow with you on an as-needed basis. Feel free to call with any questions or concerns. I performed an examination of the patient and discussed the management with the CARE SPECIALIST. I have reviewed the CARE SPECIALIST notes and agree with the findings and plan of care.
[2016-08-28 12:29] LABS: Glucose,Whole Blood 230 mg/dL (75-99)
--- NOTE | 2016-08-28 12:53 | P.PN ---
Subjective Principal diagnosis: Acute on chronic hypoxic and hypercapnic respiratory failure Patient seen and examined in the ICU with nursing staff at bedside. The patient is alert and trying to talk today. The patient has been hemodynamically stable. He is wearing BiPAP at night. He has been on nasal cannula for several hours today. His urine output has been excellent. The patient still has not had a bowel movement. Objective - Vital Signs Vital signs: Vital Signs Temp 98.5 F 08/28/16 00:00 Pulse 98 08/28/16 06:00 Resp 25 H 08/28/16 06:00 BP 178/88 08/28/16 06:00 Pulse Ox 99 08/28/16 06:00 Intake & Output 08/27/16 08/28/16 08/28/16 18:59 06:59 18:59 Intake Total 793.606 2388 Output Total 1664 2024 Balance -1235.334 -154 Weight 147.1 kg 152.5 kg Intake: IV 260 220 .9 @ 20 260 220 Intake, IV Titration 917.576 0487 Amount Cefepime 2 gm In Sodium 50 50 Chloride 0.9% 50 ml @ 100 mls/hr IVPB Q12HR [facility] Rx #:[id number] DAPTOmycin 500 mg In 100 Sodium Chloride 0.9% 50 ml @ 100 mls/hr IV Q24H [facility] Rx#:[id number] Diltiazem 125 mg In 119.666 Sodium Chloride 0.9% 100 ml @ 15 MG/HR 15 mls/hr IV .Q8H20M [facility] Rx#: [id number] Fat Emulsion 20% 250 ml 231 In Empty Bag 1 bag @ 21 mls/hr IV [id number]@1800 [facility] Rx#:[id number] Heparin Sodium,Porcine/ 500 D5w Pmx 25,000 unit In Dextrose/Water 1 500ml. bag @ 6.681 UNITS/KG/HR 20 mls/hr IV .Q24H [facility] Rx #:[id number] Mvi, Adult No.4 with Vit 770 K 10 ml Trace (Conc-1Ml/ Dose) 1 ml Calcium Gluconate 750 mg Sodium Chloride 4Meq/ml Vial 10 meq Potassium Acetate 10 meq Magnesium Sulfate 4 meq Potassium Phosphate 15 mmol In Amino Acid 5%- D25w 1,000 ml @ 70 mls/hr IV .BY DURATION [facility] Rx#: [id number] Output: Urine 1664 2024 Other: Voiding Method Indwelling Catheter Indwelling Catheter - Exam Gen.: Alert, conversational, still confused Cardiovascular: Irregular rate and rhythm, S1/S2 Lungs: Diminished breath sounds at the bases with scattered crackles Abdomen: Soft nontender nondistended positive bowel sounds Extremities: Cellulitis, chronic venous stasis, edema - Labs CBC & Chem 7: 08/28/16 04:13 08/28/16 04:13 Labs: Abnormal Lab Results - Last 24 Hours (Table) 08/27/16 08/27/16 08/28/16 Range/Units 17:42 23:49 04:13 WBC 17.4 H (3.8-10.6) k/uL RBC 3.93 L (4.30-5.90) m/uL Hgb 11.9 L (13.0-17.5) gm/dL Hct 38.0 L (39.0-53.0) % Neutrophils # 14.2 H (1.3-7.7) k/uL APTT (22.0-30.0) sec Chloride (98-107) mmol/L BUN (9-20) mg/dL Creatinine (0.66-1.25) mg/dL Glucose (74-99) mg/dL POC Glucose (mg/dL) 214 H 207 H (75-99) mg/dL 08/28/16 08/28/16 08/28/16 Range/Units 04:13 04:13 10:02 WBC (3.8-10.6) k/uL RBC (4.30-5.90) m/uL Hgb (13.0-17.5) gm/dL Hct (39.0-53.0) % Neutrophils # (1.3-7.7) k/uL APTT 43.0 H (22.0-30.0) sec Chloride 97 L (98-107) mmol/L BUN 39 H (9-20) mg/dL Creatinine 2.00 H (0.66-1.25) mg/dL Glucose 248 H (74-99) mg/dL POC Glucose (mg/dL) 232 H (75-99) mg/dL 08/28/16 Range/Units 12:26 WBC (3.8-10.6) k/uL RBC (4.30-5.90) m/uL Hgb (13.0-17.5) gm/dL Hct (39.0-53.0) % Neutrophils # (1.3-7.7) k/uL APTT (22.0-30.0) sec Chloride (98-107) mmol/L BUN (9-20) mg/dL Creatinine (0.66-1.25) mg/dL Glucose (74-99) mg/dL POC Glucose (mg/dL) 230 H (75-99) mg/dL Assessment and Plan Plan: Acute hypoxic and hypercapnic respiratory failure Acute exacerbation of CHF, diastolic, ejection fraction 60-65% Atrial fibrillation with rapid ventricular response Likely underlying COPD, active tobacco abuse Delirium tremens Coumadin coagulopathy, therapeutic Sepsis Anemia, normochromic normocytic Thrombocytosis Hyperammonemia Lower extremity cellulitis: polymicrobial Diabetic ulcer DM2 Super morbid obesity, concerning for underlying MACO/OHS Toxic metabolic encephalopathy Acute kidney injury on chronic kidney disease Pulmonary hypertension, moderate to severe, RVSP 53 mmHg Peripheral arterial disease Active tobacco abuse Thrush Continue BiPAP, ok to trial off for short periods of time Cardizem drip per cardiology team Diuresis, Lasix decrease back to BID Monitor renal function Serial CXR Initiate Colace Start Nystatin Bronchodilators and Pulmicort Antibiotics per ID Wound care DC Ativan, initiate Seroquel NPO while on bipap, continue TPN Swallow evaluation today GI and DVT Prophylaxis: Protonix, heparin gtt Continue haldol, decrease amount of benzos/opiates patient is receiving Smoking cessation highly recommended, Nicotine TD Prognosis is extremely guarded Progress has been slow
[2016-08-28] MEDS: NICOTINE 21MG/24HR PATCH TRANSDERM SCH (13:40)
[2016-08-28] MEDS: THIAMINE 100 MG/ML 2 ML VIAL IM SCH ×2 (13:41→17:24)
[2016-08-28] MEDS: HEPARIN SODIUM,PORCINE/D5W PMX 25,000 UNIT in DEXTROSE/WATER 1 500ML.BAG IV SCH (13:42)
[2016-08-28] MEDS: DAPTOmycin 500 MG in SODIUM CHLORIDE 0.9% 50 ML IV SCH (13:42)
[2016-08-28] MEDS: NYSTATIN 100,000 UNIT/ML SUSP 500,000 UNIT/5 ML CUP PO SCH ×3 (13:42→22:42)
[2016-08-28] MEDS: FUROSEMIDE 10 MG/ML 4 ML VIAL IV SCH ×2 (13:50→22:40)
[2016-08-28 15:12] LABS: Potassium 3.9 mmol/L (3.5-5.1)
--- NOTE | 2016-08-28 16:15 | P.PN ---
Subjective Principal diagnosis: fever cellulitis 61-year-old male with a long-standing history of diabetes mellitus type 2 poorly controlled as well as coronary artery disease congestive heart failure and chronic lower extremity edema. He was recently hospitalized without evidence of an infection to his left leg and heel. He was seen by vascular surgery has been following the wound center. The patient has been on antibiotic therapy with ciprofloxacin. For the isolated pathogens. The patient relates in the days before coming to hospital he started to feel ill. Increasing weakness. Increasing swelling and redness to the leg. An increasing over the left heel. His was trying to get him to come to the hospital for days before he finally came because he became so weak that he could no longer object. Upon arrival to the emergency center temperature 102.2 was noted. He was also having difficulty with worsening arrhythmia with his atrial fibrillation having a rapid ventricular response. He has been seen by cardiology. And there is been improvement of his uncontrolled rhythm. He still feels poorly. He's had fever which is feeling slightly better at this time still has chills. Is concerned about the ongoing ulceration to his left heel. He relates that he has not been offloading it. He can't wear any shoes causes his legs are so swollen. Spends his time in a lazy- boy recliner when he is at home. His had a further decline of his status. He was transferred to the intensive care unit. He had BiPAP in place for worsening respiratory status. The patient became somewhat uncooperative and somnolent. And as noted the patient' s related that he was a heavy drinker. He is on the CIWA protocol and Ativan is being weaned. He is showing improvement Patient has had a mild improvement today. He is less sedated. He is currently off of BiPAP. He has an high flow oxygen. Seems to be comfortable but still remains very confused. Does seem to have some ability to recognize his . He is sitting upright in bed. [place] improved today. There are many sentences that do make sense. He does seem to be more comfortable. Objective - Vital Signs Vital signs: Vital Signs Temp 98.5 F 08/28/16 00:00 Pulse 105 H 08/28/16 15:33 Resp 25 H 08/28/16 06:00 BP 178/88 08/28/16 06:00 Pulse Ox 99 08/28/16 06:00 Intake & Output 08/27/16 08/28/16 08/28/16 18:59 06:59 18:59 Intake Total 528.300 8373 Output Total 1664 2024 Balance -1110.334 -154 Weight 147.1 kg 152.5 kg Intake: IV 260 220 .9 @ 20 260 220 Intake, IV Titration 972.245 0512 Amount Cefepime 2 gm In Sodium 50 50 Chloride 0.9% 50 ml @ 100 mls/hr IVPB Q12HR [facility] Rx #:[id number] DAPTOmycin 500 mg In 100 Sodium Chloride 0.9% 50 ml @ 100 mls/hr IV Q24H [facility] Rx#:[id number] Diltiazem 125 mg In 244.666 Sodium Chloride 0.9% 100 ml @ 15 MG/HR 15 mls/hr IV .Q8H20M [facility] Rx#: [id number] Fat Emulsion 20% 250 ml 231 In Empty Bag 1 bag @ 21 mls/hr IV [id number]@1800 [facility] Rx#:[id number] Heparin Sodium,Porcine/ 500 D5w Pmx 25,000 unit In Dextrose/Water 1 500ml. bag @ 6.681 UNITS/KG/HR 20 mls/hr IV .Q24H [facility] Rx #:[id number] Mvi, Adult No.4 with Vit 770 K 10 ml Trace (Conc-1Ml/ Dose) 1 ml Calcium Gluconate 750 mg Sodium Chloride 4Meq/ml Vial 10 meq Potassium Acetate 10 meq Magnesium Sulfate 4 meq Potassium Phosphate 15 mmol In Amino Acid 5%- D25w 1,000 ml @ 70 mls/hr IV .BY DURATION [facility] Rx#: [id number] Output: Urine 1664 2024 Other: Voiding Method Indwelling Catheter Indwelling Catheter - Exam 61 year-old male who suffers from obesity. Remains in the intensive care unit. He is currently on high flow oxygen not BiPAP. HEENT: Anicteric conjunctiva are pink and moist nasal mucosa grossly intact without significant lesions, there is no thrush. Dentition is warm for age. Neck: The neck is supple without significant lymphadenopathy or thyromegaly. Lungs: Symmetrical air entry is noted with evidence of extra wheezes that are scattered. No julian bronchial sounds were noted. No egophony or dullness. Heart: Irregular with an audible S1 and S2, no S3 soft S4, no new murmur click or rub. Abdomen: Obese, Positive bowel sounds soft and nontender without palpable masses or organomegaly. There was no guarding or rebound. Evidence of the prior abdominal surgeries noted. At the most superior aspect of the surgical incision is evidence of some hyper-granulation tissue. At the base of the hyperventilation tissue is exposed mesh. Extremities: There is bilateral lower extremity edema. There some erythema to both lower extremities. Much more prominent on the right lower extremity from the knee distally. There is evidence of the significant ulceration to the heel that measures at 7.1 x 5.2 x 0.3 cm. Neuro:He is sitting in the specialty chair. Does open eyes. Seems to recognize his . Not agitated more comfortable and some speech is intelligible. - Labs CBC & Chem 7: 08/28/16 04:13 08/28/16 14:47 Labs: Abnormal Lab Results - Last 24 Hours (Table) 08/27/16 08/27/16 08/28/16 Range/Units 17:42 23:49 04:13 WBC 17.4 H (3.8-10.6) k/uL RBC 3.93 L (4.30-5.90) m/uL Hgb 11.9 L (13.0-17.5) gm/dL Hct 38.0 L (39.0-53.0) % Neutrophils # 14.2 H (1.3-7.7) k/uL APTT (22.0-30.0) sec Chloride (98-107) mmol/L BUN (9-20) mg/dL Creatinine (0.66-1.25) mg/dL Glucose (74-99) mg/dL POC Glucose (mg/dL) 214 H 207 H (75-99) mg/dL 08/28/16 08/28/16 08/28/16 Range/Units 04:13 04:13 10:02 WBC (3.8-10.6) k/uL RBC (4.30-5.90) m/uL Hgb (13.0-17.5) gm/dL Hct (39.0-53.0) % Neutrophils # (1.3-7.7) k/uL APTT 43.0 H (22.0-30.0) sec Chloride 97 L (98-107) mmol/L BUN 39 H (9-20) mg/dL Creatinine 2.00 H (0.66-1.25) mg/dL Glucose 248 H (74-99) mg/dL POC Glucose (mg/dL) 232 H (75-99) mg/dL 08/28/16 Range/Units 12:26 WBC (3.8-10.6) k/uL RBC (4.30-5.90) m/uL Hgb (13.0-17.5) gm/dL Hct (39.0-53.0) % Neutrophils # (1.3-7.7) k/uL APTT (22.0-30.0) sec Chloride (98-107) mmol/L BUN (9-20) mg/dL Creatinine (0.66-1.25) mg/dL Glucose (74-99) mg/dL POC Glucose (mg/dL) 230 H (75-99) mg/dL Laboratory Results WBC 17.4 k/uL (3.8-10.6) H 08/28/16 04:13 RBC 3.93 m/uL (4.30-5.90) L 08/28/16 04:13 Hgb 11.9 gm/dL (13.0-17.5) L 08/28/16 04:13 Hct 38.0 % (39.0-53.0) L 08/28/16 04:13 MCV 96.6 fL (80.0-100.0) 08/28/16 04:13 MCH 30.3 pg (25.0-35.0) 08/28/16 04:13 MCHC 31.3 g/dL (31.0-37.0) 08/28/16 04:13 RDW 15.1 % (11.5-15.5) 08/28/16 04:13 Plt Count 390 k/uL (150-450) 08/28/16 04:13 Neutrophils % 82 % 08/28/16 04:13 Lymphocytes % 8 % 08/28/16 04:13 Monocytes % 6 % 08/28/16 04:13 Eosinophils % 2 % 08/28/16 04:13 Basophils % 1 % 08/28/16 04:13 Neutrophils # 14.2 k/uL (1.3-7.7) H 08/28/16 04:13 Lymphocytes # 1.3 k/uL (1.0-4.8) 08/28/16 04:13 Monocytes # 1.0 k/uL (0-1.0) 08/28/16 04:13 Eosinophils # 0.4 k/uL (0-0.7) 08/28/16 04:13 Basophils # 0.1 k/uL (0-0.2) 08/28/16 04:13 Manual Slide Review Performed 08/19/16 07:30 Hypochromasia Marked 08/28/16 04:13 Poikilocytosis Slight 08/28/16 04:13 Macrocytosis Slight 08/27/16 05:00 PT 16.1 sec (9.0-12.0) H 08/25/16 05:27 INR 1.7 (<1.1) 08/25/16 05:27 APTT 27.7 sec (22.0-30.0) 08/28/16 14:47 Sample Site rrad 08/23/16 09:48 ABG pH 7.35 (7.35-7.45) 08/23/16 09:48 ABG pCO2 55 mmHg (35-45) H 08/23/16 09:48 ABG pO2 92 mmHg (83-108) 08/23/16 09:48 ABG HCO3 30 mmol/L (21-25) H 08/23/16 09:48 ABG Total CO2 31 mmol/L (19-24) H 08/23/16 09:48 ABG O2 Saturation 97.0 % (94-97) 08/23/16 09:48 ABG Base Excess 4.3 mmol/L 08/23/16 09:48 FiO2 40 % 08/23/16 09:48 Sodium 139 mmol/L (137-145) 08/28/16 04:13 Potassium 3.9 mmol/L (3.5-5.1) 08/28/16 14:47 Chloride 97 mmol/L (98-107) L 08/28/16 04:13 Carbon Dioxide 30 mmol/L (22-30) 08/28/16 04:13 Anion Gap 12 mmol/L 08/28/16 04:13 BUN 39 mg/dL (9-20) H 08/28/16 04:13 Creatinine 2.00 mg/dL (0.66-1.25) H 08/28/16 04:13 Est GFR (MDRD) Af Amer 41 (>60 ml/min/1.73 sqM) 08/28/16 04:13 Est GFR (MDRD) Non-Af 34 (>60 ml/min/1.73 sqM) 08/28/16 04:13 Glucose 248 mg/dL (74-99) H 08/28/16 04:13 POC Glucose (mg/dL) 230 mg/dL (75-99) H 08/28/16 12:26 POC Glu Isotope Technologist ID Michaela Yost 08/28/16 12:[address] Glu mg/dL 134 mg/dL 08/23/16 09:48 Hemoglobin A1c 6.3 % (4.2-6.1) H 08/23/16 09:48 Plasma Lactic Acid Cristiano 1.1 mmol/L (0.7-2.0) 08/20/16 03:09 Calcium 8.9 mg/dL (8.4-10.2) 08/28/16 04:13 Ionized Calcium Mara 5.0 mg/dL (4.5-5.3) 08/24/16 05:38 Phosphorus 3.0 mg/dL (2.5-4.5) 08/28/16 04:13 Magnesium 2.0 mg/dL (1.6-2.3) 08/28/16 14:47 Total Bilirubin 1.0 mg/dL (0.2-1.3) 08/26/16 04:55 AST 25 U/L (17-59) 08/26/16 04:55 ALT 19 U/L (21-72) L 08/26/16 04:55 Alkaline Phosphatase 82 U/L (38-126) 08/26/16 04:55 Ammonia 23 umol/L (<30) 08/27/16 05:00 Total Creatine Kinase 209 U/L (55-170) H 08/15/16 11:54 CK-MB (CK-2) 2.9 ng/mL (0.0-2.4) H* 08/15/16 11:54 CK-MB (CK-2) Rel Index 1.4 08/15/16 11:54 Troponin I 0.201 ng/mL (0.000-0.034) H* 08/15/16 11:54 NT-Pro-B Natriuret Pep 7750 pg/mL 08/20/16 03:09 Total Protein 6.6 g/dL (6.3-8.2) 08/26/16 04:55 Albumin 3.0 g/dL (3.5-5.0) L 08/26/16 04:55 Triglycerides 203 mg/dL (<150) H 08/23/16 09:48 TSH 2.480 mIU/L (0.465-4.680) 08/20/16 04:00 Urine Color Yellow 08/20/16 04:20 Urine Appearance Cloudy (Clear) 08/20/16 04:20 Urine pH 5.5 (5.0-8.0) 08/20/16 04:20 Ur Specific [place] 1.014 (1.001-1.035) 08/20/16 04:20 Urine Protein Trace (Negative) H 08/20/16 04:20 Urine Glucose (UA) Negative (Negative) 08/20/16 04:20 Urine Ketones Negative (Negative) 08/20/16 04:20 Urine Blood Trace (Negative) H 08/20/16 04:20 Urine Nitrite Negative (Negative) 08/20/16 04:20 Urine Bilirubin Negative (Negative) 08/20/16 04:20 Urine Urobilinogen <2.0 mg/dL (<2.0) 08/20/16 04:20 Ur Leukocyte Esterase Large (Negative) H 08/20/16 04:20 Urine RBC 10 /hpf (0-5) H 08/20/16 04:20 Urine WBC 2 /hpf (0-5) 08/20/16 04:20 Urine WBC Clumps Rare /hpf (None) H 08/15/16 00:40 Ur Squamous Epith Cells 3 /hpf (0-4) 08/20/16 04:20 Amorphous Sediment Rare /hpf (None) H 08/20/16 04:20 Urine Bacteria Rare /hpf (None) H 08/15/16 00:40 Hyaline Casts 8 /lpf (0-2) H 08/15/16 00:40 Urine Mucus Rare /hpf (None) H 08/20/16 04:20 Vancomycin Trough 31.1 ug/mL H* 08/17/16 23:00 Random Vancomycin 17.0 ug/mL 08/20/16 04:00 Microbiology 08/20/16 14:50 Blood Blood Culture - Final No Growth after 144 hours 08/19/16 11:30 Heel - Right Gram Stain - Final 08/19/16 11:30 Heel - Right Wound Culture - Final Citrobacter freundii Enterococcus faecalis VRE Radhika albicans 08/20/16 04:20 Urine,Catheterized Urine Culture - Final 08/15/16 00:40 Blood Blood Culture - Final No Growth after 144 hours 08/15/16 00:40 Urine,Voided Urine Culture - Final Assessment and Plan (1) Sepsis Narrative/Plan: 61-year-old male who has a history of multiple medical troubles that includes diabetes obesity coronary artery disease and atrial fibrillation. Presents to Hospital feeling very poorly. He had worsening cardiac dysrhythmia his atrial fibrillation and developed a rapid ventricular response. Became weak and ill and constantly remitted to coming to hospital. He is having difficulty with worsening ulceration to his heel. It was noted during his last hospital stay. And is to be getting ongoing care at the wound healing Center. During the last stay it was a goal to have him go to extended care however he refused. And then with therapy he was proving that he was able to get up and move a bit. Despite this he has not been doing well at home. He's been getting worse. He now has marked worsening infection to the right leg. Prior culture shows evidence of MRSA, klebsiella and Proteus infection. Constantly vancomycin and ceftriaxone were given for now until we have further data. Avoid Levaquin use since he is on Coumadin. Patient is chronic medical noncompliance. He has hemoglobin A1c was down to 6.1 Patient has been having difficulties with offloading the heel. A brown air boot is been requested to get up and off the bed at this time. We'll need to have a specialty boot designed the time of his discharge to take weight off of the heel. He will follow the wound healing Center. He' will continue follow- up with the vascular surgeon. Local wound care with Santyl will be utilized given large amount of necrotic material, may need surgical debridement Pain control is improved Atrial fibrillation is controlled. Continues to have leukocytosis but improving with current wound care and antibiotic therapy Creatinine is increased. Ketorolac was discontinued and being monitored. Creatinine remains at 1.6 Was receiving vancomycin therapy. However when the VRE that was isolated this was altered to daptomycin. Wound culture with gram-negative bacilli. Patient does have a remote history of pseudomonal infection. As well as of MRSA. cefepime given the current culture results. Patient receiving BiPAP and has become BiPAP dependent. Yesterday it was discussed with his who is present. We first discussed the possibility of a DO NOT RESUSCITATE order. She does not believe she is quite ready. We discussed that her has not taken good care of himself. In no appears to have chronic respiratory failure there is BiPAP dependent. If he does not improve he may require tracheostomy and chronic ventilator placement. Fortunately has had a slight improvement in his status today. The issue is slightly less pressing. However DO NOT RESUSCITATE order is still appropriate. She will discuss this with her son will be in town for the weekend. Continue care otherwise. 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
[2016-08-28 17:24] LABS: Glucose,Whole Blood 176 mg/dL (75-99)
--- NOTE | 2016-08-28 20:14 | PN ---
61-year-old gentleman seen in [facility] for Dr. Kamari Franks. The patient was ( ) has had a prolonged course in the intensive care unit due to ( ) which was due to an ( ). Over the last two days, the patient has been more arousable. Patient has undergone multiple studies to rule out underlying strokes. So far no study has been positive. 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 Today, the patient is seen in the ICU at bedside. He is arousable. However, states that he is in [place] right now and does not answer most questions appropriately. No other complaints reported. No other overnight events are reported. OBJECTIVE DATA: VITALS: Temperature is 98.5, heart rate is 98, respiratory 25, blood pressure 178/88. Saturating 99% on supplemental oxygen. General appearance: Is awake; however confused. Cardiovascular: HEART: Irregularly irregular. No murmurs appreciated. LUNGS: Diminished breath sounds. ( ) abnormal sounds appreciated. ABDOMEN: Soft. ( ) Organomegaly appreciated. ( ) cellulitis currently wrapped, 1+ edema is noted. Neuro: Moves all 4 extremities. However, complete exam is deferred due to patient's current condition. Laboratory data include: Hemoglobin 11.9, hematocrit 38, white count 17.4, platelets of 290, sodium 139, potassium 3.7, chloride 97, bicarb 30, BUN 39, creatinine 2. ASSESSMENT AND PLAN: 1. Acute encephalopathy likely a combination of metabolic and toxic. 2. Acute hypoxic and hypercapnic respiratory failure. 3. Acute exacerbation of HFPEF. 4. Coumadin coagulopathy. 5. DTs. 6. Sepsis. 7. Lower extremity cellulitis. 8. Hyperammonemia. 9. Thrombocytosis. 10. Acute kidney injury on chronic kidney disease stage ( ). 11. Pulmonary hypertension moderate. 12. Peripheral arterial disease. 13. Ongoing tobacco use. 14. Thrush. PLAN: Continue ongoing care. At this time patient does appear to be delirious at this time. Will need additional days of hospitalization. Judicious use of narcotics is recommended. Continue antibiotics as recommended by infectious diseases. Benzodiazepines have been discontinued by the vba developer. BiPAP to continue. Diet is initiated. Patient will be started on the basal dose of insulin with 20 units. ( ) appears to be guarded. Will need to discuss ( ) at some point. Will need to discuss ( ) care as well. The patient is to continue on ( ) at this time.
[2016-08-28] MEDS: QUEtiapine 25 MG TAB PO SCH (22:41)
[2016-08-28] MEDS: COLLAGENASE 250 UNIT/GM OINTMENT 30 GM TUBE TOPICAL SCH (22:41)
[2016-08-29 00:09] LABS: Glucose,Whole Blood 229 mg/dL (75-99)
[2016-08-29] MEDS: INSULIN LISPRO (humaLOG) 300 UNIT/3 ML VIAL SQ SCH ×4 (00:48→17:06)
[2016-08-29 05:05] LABS: Basophils # (A) 0.1 k/uL (0-0.2); Basophils % (A) 1 %; CH 29.2; CHCM 30.4; Eosinophils # (A) 0.4 k/uL (0-0.7); Eosinophils % (A) 2 %; HCT 39.2 % (39.0-53.0); HDW 3.24; Hypochromasia Marked; Luc # (Auto) 0.41; Luc % (Auto) 2; Lymphocytes # (A) 1.1 k/uL (1.0-4.8); Lymphocytes % (A) 6 %; MCH 29.4 pg (25.0-35.0); MCHC 30.5 g/dL (31.0-37.0); MCV 96.3 fL (80.0-100.0); Mean Platelet Volume 7.7; Monocytes % (A) 6 %; Neutrophils # (A) 15.3 k/uL (1.3-7.7); Neutrophils % (A) 83 %; RBC 4.07 m/uL (4.30-5.90); RDW 15.3 % (11.5-15.5); WBC 18.3 k/uL (3.8-10.6); WBC (Perox) 18.25
[2016-08-29 05:18] LABS: Calcium 8.9 mg/dL (8.4-10.2); Magnesium 1.9 mg/dL (1.6-2.3); Phosphorous 2.5 mg/dL (2.5-4.5); Potassium 3.8 mmol/L (3.5-5.1)
[2016-08-29 05:56] LABS: Glucose,Whole Blood 172 mg/dL (75-99)
[2016-08-29] MEDS: DILTIAZEM 125 MG in SODIUM CHLORIDE 0.9% 100 ML IV SCH (06:49)
[2016-08-29] MEDS: HEPARIN SODIUM,PORCINE/D5W PMX 25,000 UNIT in DEXTROSE/WATER 1 500ML.BAG IV SCH (06:50)
[2016-08-29] MEDS: [UNRECOGNIZED DRUG - REMARK] IV SCH ×24 (06:50→13:03)
[2016-08-29] MEDS: LEVALBUTEROL NEB 1.25 MG/3 ML AMP INHALATION SCH ×4 (07:37→20:24)
[2016-08-29] MEDS: BUDESONIDE 0.5 MG/2 ML NEBU INHALATION SCH ×2 (07:37→20:24)
--- NOTE | 2016-08-29 07:38 | XR ---
EXAMINATION TYPE: XR chest 1V portable DATE OF EXAM: 08/29/2016 6:53 AM COMPARISON: 08/26/2016 INDICATION: Shortness of breath TECHNIQUE: Single frontal view of the chest is obtained. FINDINGS: The heart size is enlarged. The pulmonary vasculature is normal. There is a developing right perihilar infiltrate and opacity. Correlate for pneumonia. IMPRESSION: 1. Suggestive of a developing pneumonia right perihilar region. 2. Cardiomegaly.
[2016-08-29] MEDS ORDERED: Potassium Replacement Protocol 1 EACH MISC MISCELLANE PRN (07:41)
[2016-08-29] MEDS ORDERED: Magnesium Replacement Protocol 1 EACH MISC MISCELLANE PRN (07:41)
[2016-08-29] MEDS ORDERED: MAGNESIUM SULFATE-D5W PMX 1 GM in DEXTROSE/WATER 1 100ML.BAG IVPB SCH (07:45)
[2016-08-29] MEDS ORDERED: POTASSIUM CHLORIDE ER 20 MEQ TAB.ER PO SCH ×2 (08:00)
[2016-08-29] MEDS: FUROSEMIDE 10 MG/ML 4 ML VIAL IV SCH (09:23)
[2016-08-29] MEDS: MAGNESIUM SULFATE-D5W PMX 1 GM in DEXTROSE/WATER 1 100ML.BAG IVPB SCH ×2 (09:24→12:09)
[2016-08-29 09:28] LABS: Glucose,Whole Blood 202 mg/dL (75-99)
[2016-08-29] MEDS: CEFEPIME 2 GM in SODIUM CHLORIDE 0.9% 50 ML IVPB SCH ×2 (09:32→20:34)
[2016-08-29] MEDS: INSULIN GLARGINE 100 UNIT/ML 10 ML VIAL SQ SCH (09:37)
[2016-08-29] MEDS: DOCUSATE 100 MG CAP PO SCH (09:39)
[2016-08-29] MEDS: NYSTATIN 100,000 UNIT/ML SUSP 500,000 UNIT/5 ML CUP PO SCH ×4 (09:39→21:49)
[2016-08-29] MEDS: NICOTINE 21MG/24HR PATCH TRANSDERM SCH (09:39)
[2016-08-29] MEDS: PANTOPRAZOLE 40 MG/10 ML VIAL IVP SCH (10:27)
[2016-08-29] MEDS: SODIUM CHLORIDE 0.9% 1,000 ML IV SCH (10:27)
[2016-08-29 12:03] LABS: Glucose,Whole Blood 214 mg/dL (75-99)
[2016-08-29] MEDS: THIAMINE 100 MG/ML 2 ML VIAL IM SCH (12:09)
[2016-08-29] MEDS: DILTIAZEM ORAL 60 MG TAB PO SCH ×3 (13:14→21:49)
[2016-08-29 13:32] LABS: Appearance,Urine Turbid (Clear); Bacteria,Urine Rare /hpf; Bilirubin,Urine Negative (Negative); Glucose,Urine (UA) Negative (Negative); Ketones,Urine Negative (Negative); Leukocyte Esterase,Urine Large (Negative); Mucus,Urine Rare /hpf; Nitrite,Urine Negative (Negative); Particle Count 20490; Protein,Urine 1+ (Negative); RBC,Urine >182 /hpf (0-5); Specific Gravity,Urine 1.011 (1.001-1.035); UA Billing (MACRO vs. MICRO) MICRO; Urobilinogen,Urine <2.0 mg/dL (<2.0); WBC,Urine >182 /hpf (0-5)
[2016-08-29] MEDS: DAPTOmycin 500 MG in SODIUM CHLORIDE 0.9% 50 ML IV SCH (15:27)
--- NOTE | 2016-08-29 15:55 | P.PN ---
Subjective Principal diagnosis: Acute on chronic hypoxic and hypercapnic respiratory failure Patient seen and examined in the ICU with nursing staff at bedside. The patient is much more alert today he is oriented to place and person. The patient has been hemodynamically stable. He is going to try to eat a meal this afternoon. His urine output has been excellent. Urine analysis has been obtained due to cloudy appearance of the urine. Objective - Vital Signs Vital signs: Vital Signs Temp 98.5 F 08/29/16 09:00 Pulse 96 08/29/16 15:35 Resp 22 08/29/16 15:17 BP 140/84 08/29/16 15:00 Pulse Ox 94 L 08/29/16 15:00 Intake & Output 08/28/16 08/29/16 08/29/16 18:59 06:59 18:59 Intake Total 940 2025.5 780 Output Total 430 1145 2720 Balance 510 880.5 -1940 Weight 150.4 kg Intake: IV 240 240 530 .9 @ 20 240 240 180 Mvi, Adult No.4 with Vit 350 K 10 ml Trace (Conc-1Ml/ Dose) 1 ml Calcium Gluconate 1,000 mg Sodium Acetate 10 meq Potassium Chloride 14 meq Magnesium Sulfate 4 meq Potassium Phosphate 9 mmol In Amino Acid 5%- D25w 1,000 ml @ 70 mls/hr IV .BY DURATION [facility] Rx#: [id number] Intake, IV Titration 700 1785.5 250 Amount Cefepime 2 gm In Sodium 50 Chloride 0.9% 50 ml @ 100 mls/hr IVPB Q12HR [facility] Rx #:[id number] Diltiazem 125 mg In 250 Sodium Chloride 0.9% 100 ml @ 15 MG/HR 15 mls/hr IV .Q8H20M [facility] Rx#: [id number] Heparin Sodium,Porcine/ 500 D5w Pmx 25,000 unit In Dextrose/Water 1 500ml. bag @ 6.681 UNITS/KG/HR 20 mls/hr IV .Q24H [facility] Rx #:[id number] Magnesium Sulfate-D5w Pmx 200 1 gm In Dextrose/Water 1 100ml.bag @ 100 mls/hr IVPB Q1H [facility] Rx#: [id number] Mvi, Adult No.4 with Vit 700 K 10 ml Trace (Conc-1Ml/ Dose) 1 ml Calcium Gluconate 750 mg Sodium Chloride 4Meq/ml Vial 10 meq Potassium Acetate 10 meq Magnesium Sulfate 4 meq Potassium Phosphate 15 mmol In Amino Acid 5%- D25w 1,000 ml @ 70 mls/hr IV .BY DURATION [facility] Rx#: [id number] Mvi, Adult No.4 with Vit 1035.5 K 10 ml Trace (Conc-1Ml/ Dose) 1 ml Calcium Gluconate 750 mg Sodium Chloride 4Meq/ml Vial 10 meq Potassium Chloride 15 meq Magnesium Sulfate 8 meq Potassium Phosphate 15 mmol In Amino Acid 5%- D25w 1,000 ml @ 70 mls/hr IV .BY DURATION [facility] Rx#: [id number] Output: Urine 430 1145 2720 Other: Voiding Method Indwelling Catheter Indwelling Catheter Indwelling Catheter - Exam Gen.: Alert, conversational, still confused Cardiovascular: Irregular rate and rhythm, S1/S2 Lungs: Diminished breath sounds at the bases with scattered crackles Abdomen: Soft nontender nondistended positive bowel sounds Extremities: Cellulitis, chronic venous stasis, edema - Labs CBC & Chem 7: 08/29/16 04:17 08/29/16 04:17 Labs: Abnormal Lab Results - Last 24 Hours (Table) 08/28/16 08/28/16 08/29/16 Range/Units 17:22 21:43 00:07 WBC (3.8-10.6) k/uL RBC (4.30-5.90) m/uL Hgb (13.0-17.5) gm/dL MCHC (31.0-37.0) g/dL Neutrophils # (1.3-7.7) k/uL APTT 43.3 H (22.0-30.0) sec Chloride (98-107) mmol/L BUN (9-20) mg/dL Creatinine (0.66-1.25) mg/dL Glucose (74-99) mg/dL POC Glucose (mg/dL) 176 H 229 H (75-99) mg/dL Urine Protein (Negative) Urine Blood (Negative) Ur Leukocyte Esterase (Negative) Urine RBC (0-5) /hpf Urine WBC (0-5) /hpf Urine WBC Clumps (None) /hpf Urine Bacteria (None) /hpf Urine Mucus (None) /hpf Urine Yeast (Budding) (None) /hpf 08/29/16 08/29/16 08/29/16 Range/Units 04:17 04:17 04:17 WBC 18.3 H (3.8-10.6) k/uL RBC 4.07 L (4.30-5.90) m/uL Hgb 12.0 L (13.0-17.5) gm/dL MCHC 30.5 L (31.0-37.0) g/dL Neutrophils # 15.3 H (1.3-7.7) k/uL APTT 45.7 H (22.0-30.0) sec Chloride 97 L (98-107) mmol/L BUN 45 H (9-20) mg/dL Creatinine 2.10 H (0.66-1.25) mg/dL Glucose 148 H (74-99) mg/dL POC Glucose (mg/dL) (75-99) mg/dL Urine Protein (Negative) Urine Blood (Negative) Ur Leukocyte Esterase (Negative) Urine RBC (0-5) /hpf Urine WBC (0-5) /hpf Urine WBC Clumps (None) /hpf Urine Bacteria (None) /hpf Urine Mucus (None) /hpf Urine Yeast (Budding) (None) /hpf 08/29/16 08/29/16 08/29/16 Range/Units 05:54 09:26 12:01 WBC (3.8-10.6) k/uL RBC (4.30-5.90) m/uL Hgb (13.0-17.5) gm/dL MCHC (31.0-37.0) g/dL Neutrophils # (1.3-7.7) k/uL APTT (22.0-30.0) sec Chloride (98-107) mmol/L BUN (9-20) mg/dL Creatinine (0.66-1.25) mg/dL Glucose (74-99) mg/dL POC Glucose (mg/dL) 172 H 202 H 214 H (75-99) mg/dL Urine Protein (Negative) Urine Blood (Negative) Ur Leukocyte Esterase (Negative) Urine RBC (0-5) /hpf Urine WBC (0-5) /hpf Urine WBC Clumps (None) /hpf Urine Bacteria (None) /hpf Urine Mucus (None) /hpf Urine Yeast (Budding) (None) /hpf 08/29/16 08/29/16 Range/Units 12:55 13:29 WBC (3.8-10.6) k/uL RBC (4.30-5.90) m/uL Hgb (13.0-17.5) gm/dL MCHC (31.0-37.0) g/dL Neutrophils # (1.3-7.7) k/uL APTT 55.8 H (22.0-30.0) sec Chloride (98-107) mmol/L BUN (9-20) mg/dL Creatinine (0.66-1.25) mg/dL Glucose (74-99) mg/dL POC Glucose (mg/dL) (75-99) mg/dL Urine Protein 1+ H (Negative) Urine Blood Moderate H (Negative) Ur Leukocyte Esterase Large H (Negative) Urine RBC >182 H (0-5) /hpf Urine WBC >182 H (0-5) /hpf Urine WBC Clumps Many H (None) /hpf Urine Bacteria Rare H (None) /hpf Urine Mucus Rare H (None) /hpf Urine Yeast (Budding) Many H (None) /hpf Assessment and Plan Plan: Acute hypoxic and hypercapnic respiratory failure Acute exacerbation of CHF, diastolic, ejection fraction 60-65% Atrial fibrillation with rapid ventricular response Likely underlying COPD, active tobacco abuse Delirium tremens Coumadin coagulopathy, therapeutic Sepsis Anemia, normochromic normocytic Thrombocytosis Hyperammonemia Lower extremity cellulitis: polymicrobial Diabetic ulcer DM2 Super morbid obesity, concerning for underlying MACO/OHS Toxic metabolic encephalopathy Acute kidney injury on chronic kidney disease Pulmonary hypertension, moderate to severe, RVSP 53 mmHg Peripheral arterial disease Active tobacco abuse Thrush Continue BiPAP, ok to trial off for short periods of time Cardizem drip per cardiology team - changed to PO cardizem Diuresis, Lasix decrease to daily Monitor renal function Serial CXR Colace Nystatin Bronchodilators and Pulmicort Antibiotics per ID Wound care DC Ativan, initiate Seroquel NPO while on bipap, continue TPN Swallow evaluation GI and DVT Prophylaxis: Protonix, heparin gtt Restart Coumadin Continue haldol, decrease amount of benzos/opiates patient is receiving Smoking cessation highly recommended, Nicotine TD Prognosis is extremely guarded Progress has been slow Restart patient's home oral medications, including Coumadin, goal INR 2-3. DC heparin gtt once therapeutic. Discuss with cardiology is patient is to be restarted on home Metoprolol
[2016-08-29 16:19] LABS: INR 1.4 (<1.1)
[2016-08-29 17:07] LABS: Glucose,Whole Blood 145 mg/dL (75-99)
[2016-08-29] MEDS ORDERED: WARFARIN 1.25 MG TAB PO SCH (18:00)
[2016-08-29] MEDS ORDERED: WARFARIN 5 MG TAB PO SCH (18:00)
--- NOTE | 2016-08-29 18:37 | P.PN ---
Subjective 61-year-old gentleman seen in [facility] for Dr. Kamari Franks. The patient was ( ) has had a prolonged course in the intensive care unit due to ( ) which was due to an ( ). Over the last two days, the patient has been more arousable. Patient has undergone multiple studies to rule out underlying strokes. So far no study has been positive. 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 Today, the patient is seen in the ICU at bedside. He is arousable. However, states that he is in [place] right now and does not answer most questions appropriately. No other complaints reported. No other overnight events are reported. 08/29 awake is able to answer questions appropriately some confusion is still noted. on cardizem drip on TPN No additional complaints reported no fevers, chills, chest pain, n/v Objective - Vital Signs Vital signs: Vital Signs Temp 98.3 F 08/29/16 16:00 Pulse 83 08/29/16 18:00 Resp 22 08/29/16 18:00 BP 144/80 08/29/16 18:00 Pulse Ox 95 08/29/16 18:00 Intake & Output 08/28/16 08/29/16 08/29/16 18:59 06:59 18:59 Intake Total 940 2025.5 890 Output Total 430 1145 3320 Balance 510 880.5 -2430 Weight 150.4 kg Intake: IV 240 240 590 .9 @ 20 240 240 240 Mvi, Adult No.4 with Vit 350 K 10 ml Trace (Conc-1Ml/ Dose) 1 ml Calcium Gluconate 1,000 mg Sodium Acetate 10 meq Potassium Chloride 14 meq Magnesium Sulfate 4 meq Potassium Phosphate 9 mmol In Amino Acid 5%- D25w 1,000 ml @ 70 mls/hr IV .BY DURATION [facility] Rx#: [id number] Intake, IV Titration 700 1785.5 300 Amount Cefepime 2 gm In Sodium 50 Chloride 0.9% 50 ml @ 100 mls/hr IVPB Q12HR [facility] Rx #:[id number] DAPTOmycin 500 mg In 50 Sodium Chloride 0.9% 50 ml @ 100 mls/hr IV Q24H [facility] Rx#:[id number] Diltiazem 125 mg In 250 Sodium Chloride 0.9% 100 ml @ 15 MG/HR 15 mls/hr IV .Q8H20M [facility] Rx#: [id number] Heparin Sodium,Porcine/ 500 D5w Pmx 25,000 unit In Dextrose/Water 1 500ml. bag @ 6.681 UNITS/KG/HR 20 mls/hr IV .Q24H [facility] Rx #:[id number] Magnesium Sulfate-D5w Pmx 200 1 gm In Dextrose/Water 1 100ml.bag @ 100 mls/hr IVPB Q1H [facility] Rx#: [id number] Mvi, Adult No.4 with Vit 700 K 10 ml Trace (Conc-1Ml/ Dose) 1 ml Calcium Gluconate 750 mg Sodium Chloride 4Meq/ml Vial 10 meq Potassium Acetate 10 meq Magnesium Sulfate 4 meq Potassium Phosphate 15 mmol In Amino Acid 5%- D25w 1,000 ml @ 70 mls/hr IV .BY DURATION [facility] Rx#: [id number] Mvi, Adult No.4 with Vit 1035.5 K 10 ml Trace (Conc-1Ml/ Dose) 1 ml Calcium Gluconate 750 mg Sodium Chloride 4Meq/ml Vial 10 meq Potassium Chloride 15 meq Magnesium Sulfate 8 meq Potassium Phosphate 15 mmol In Amino Acid 5%- D25w 1,000 ml @ 70 mls/hr IV .BY DURATION [facility] Rx#: [id number] Output: Urine 430 1145 3320 Other: Voiding Method Indwelling Catheter Indwelling Catheter Indwelling Catheter - Exam OBJECTIVE DATA: VITALS: Temperature is 98.5, heart rate is 98, respiratory 25, blood pressure 178/88. Saturating 99% on supplemental oxygen. General appearance: Is awake; however confused. Cardiovascular: HEART: Irregularly irregular. No murmurs appreciated. LUNGS: Diminished breath sounds. No abnormal sounds appreciated. ABDOMEN: Soft., obese Organomegaly appreciated. Skin cellulitis currently wrapped, 1+ edema is noted. Neuro: Moves all 4 extremities. However, complete exam is deferred due to patient's current condition. - Labs CBC & Chem 7: 08/29/16 04:17 08/29/16 04:17 Labs: Abnormal Lab Results - Last 24 Hours (Table) 08/28/16 08/29/16 08/29/16 Range/Units 21:43 00:07 04:17 WBC 18.3 H (3.8-10.6) k/uL RBC 4.07 L (4.30-5.90) m/uL Hgb 12.0 L (13.0-17.5) gm/dL MCHC 30.5 L (31.0-37.0) g/dL Neutrophils # 15.3 H (1.3-7.7) k/uL PT (9.0-12.0) sec APTT 43.3 H (22.0-30.0) sec Chloride (98-107) mmol/L BUN (9-20) mg/dL Creatinine (0.66-1.25) mg/dL Glucose (74-99) mg/dL POC Glucose (mg/dL) 229 H (75-99) mg/dL Urine Protein (Negative) Urine Blood (Negative) Ur Leukocyte Esterase (Negative) Urine RBC (0-5) /hpf Urine WBC (0-5) /hpf Urine WBC Clumps (None) /hpf Urine Bacteria (None) /hpf Urine Mucus (None) /hpf Urine Yeast (Budding) (None) /hpf 08/29/16 08/29/16 08/29/16 Range/Units 04:17 04:17 05:54 WBC (3.8-10.6) k/uL RBC (4.30-5.90) m/uL Hgb (13.0-17.5) gm/dL MCHC (31.0-37.0) g/dL Neutrophils # (1.3-7.7) k/uL PT (9.0-12.0) sec APTT 45.7 H (22.0-30.0) sec Chloride 97 L (98-107) mmol/L BUN 45 H (9-20) mg/dL Creatinine 2.10 H (0.66-1.25) mg/dL Glucose 148 H (74-99) mg/dL POC Glucose (mg/dL) 172 H (75-99) mg/dL Urine Protein (Negative) Urine Blood (Negative) Ur Leukocyte Esterase (Negative) Urine RBC (0-5) /hpf Urine WBC (0-5) /hpf Urine WBC Clumps (None) /hpf Urine Bacteria (None) /hpf Urine Mucus (None) /hpf Urine Yeast (Budding) (None) /hpf 08/29/16 08/29/16 08/29/16 Range/Units 09:26 10:00 12:01 WBC (3.8-10.6) k/uL RBC (4.30-5.90) m/uL Hgb (13.0-17.5) gm/dL MCHC (31.0-37.0) g/dL Neutrophils # (1.3-7.7) k/uL PT 14.0 H (9.0-12.0) sec APTT (22.0-30.0) sec Chloride (98-107) mmol/L BUN (9-20) mg/dL Creatinine (0.66-1.25) mg/dL Glucose (74-99) mg/dL POC Glucose (mg/dL) 202 H 214 H (75-99) mg/dL Urine Protein (Negative) Urine Blood (Negative) Ur Leukocyte Esterase (Negative) Urine RBC (0-5) /hpf Urine WBC (0-5) /hpf Urine WBC Clumps (None) /hpf Urine Bacteria (None) /hpf Urine Mucus (None) /hpf Urine Yeast (Budding) (None) /hpf 08/29/16 08/29/16 08/29/16 Range/Units 12:55 13:29 17:06 WBC (3.8-10.6) k/uL RBC (4.30-5.90) m/uL Hgb (13.0-17.5) gm/dL MCHC (31.0-37.0) g/dL Neutrophils # (1.3-7.7) k/uL PT (9.0-12.0) sec APTT 55.8 H (22.0-30.0) sec Chloride (98-107) mmol/L BUN (9-20) mg/dL Creatinine (0.66-1.25) mg/dL Glucose (74-99) mg/dL POC Glucose (mg/dL) 145 H (75-99) mg/dL Urine Protein 1+ H (Negative) Urine Blood Moderate H (Negative) Ur Leukocyte Esterase Large H (Negative) Urine RBC >182 H (0-5) /hpf Urine WBC >182 H (0-5) /hpf Urine WBC Clumps Many H (None) /hpf Urine Bacteria Rare H (None) /hpf Urine Mucus Rare H (None) /hpf Urine Yeast (Budding) Many H (None) /hpf Assessment and Plan Plan: ASSESSMENT AND PLAN: 1. Acute encephalopathy likely a combination of metabolic and toxic. 2. Acute hypoxic and hypercapnic respiratory failure. 3. Acute exacerbation of HFPEF. 4. Coumadin coagulopathy. 5. DTs. 6. Sepsis. 7. Lower extremity cellulitis. 8. Hyperammonemia. 9. Thrombocytosis. 10. Acute kidney injury on chronic kidney disease stage 3 11. Pulmonary hypertension moderate. 12. Peripheral arterial disease. 13. Ongoing tobacco use. 14. Thrush. PLAN: Continue ongoing care. At this time patient does appear to be delirious at this time. Will need additional days of hospitalization. Judicious use of narcotics is recommended. titrate off TPN continue insulin drip cardizem 60mg qid is started UA daptomycin to be dosed by pharmacy, CR worsening UA to be reviewed b12 and folic acid replacement .
[2016-08-29] MEDS: THIAMINE 100 MG TAB PO SCH (20:35)
[2016-08-29] MEDS: COLLAGENASE 250 UNIT/GM OINTMENT 30 GM TUBE TOPICAL SCH (20:37)
[2016-08-29 20:45] LABS: Glucose,Whole Blood 143 mg/dL (75-99)
[2016-08-29] MEDS: QUEtiapine 25 MG TAB PO SCH (21:48)
[2016-08-30] MEDS: INSULIN LISPRO (humaLOG) 300 UNIT/3 ML VIAL SQ SCH ×5 (01:03→20:40)
[2016-08-30 01:07] LABS: Glucose,Whole Blood 129 mg/dL (75-99)
[2016-08-30] MEDS: MORPHINE SULFATE 4 MG/ML SYRINGE IV PRN ×2 (01:14→20:36)
[2016-08-30 05:42] LABS: Basophils # (A) 0.1 k/uL (0-0.2); Basophils % (A) 1 %; CH 29.6; CHCM 30.5; Eosinophils # (A) 0.4 k/uL (0-0.7); Eosinophils % (A) 3 %; HCT 37.3 % (39.0-53.0); HDW 3.22; HGB 11.1 gm/dL (13.0-17.5); Hypochromasia Marked; Luc # (Auto) 0.39; Luc % (Auto) 3; Lymphocytes # (A) 1.1 k/uL (1.0-4.8); Lymphocytes % (A) 8 %; MCH 29.1 pg (25.0-35.0); MCHC 29.8 g/dL (31.0-37.0); MCV 97.6 fL (80.0-100.0); Mean Platelet Volume 8.1; Monocytes # (A) 0.7 k/uL (0-1.0); Monocytes % (A) 5 %; Neutrophils % (A) 82 %; RBC 3.82 m/uL (4.30-5.90); RDW 15.5 % (11.5-15.5); WBC 14.7 k/uL (3.8-10.6); WBC (Perox) 15.22
[2016-08-30 05:50] LABS: INR 1.6 (<1.1); Partial Thromboplastin Time 31.4 sec (22.0-30.0); Prothrombin Time 15.3 sec (9.0-12.0)
[2016-08-30 07:09] LABS: Calcium 8.8 mg/dL (8.4-10.2); Phosphorous 3.7 mg/dL (2.5-4.5)
[2016-08-30] MEDS: LEVALBUTEROL NEB 1.25 MG/3 ML AMP INHALATION SCH ×4 (07:20→19:35)
[2016-08-30] MEDS: BUDESONIDE 0.5 MG/2 ML NEBU INHALATION SCH ×2 (07:20→19:36)
--- NOTE | 2016-08-30 07:25 | XR ---
EXAMINATION TYPE: XR chest 1V portable DATE OF EXAM: 08/30/2016 7:04 AM HISTORY: shortness of breath. REFERENCE: Previous study dated 08/29/2016. FINDINGS: The heart is enlarged. There is scarring or atelectasis at the left lung base. There is an ovoid opacity on the right which may represent focal pneumonia. The pseudotumor with fluid in the silvio or fissure is also a possibility. The overall appearance is similar to previous. IMPRESSION: 1. CARDIOMEGALY. 2. SCARRING VERSUS ATELECTASIS, LEFT LUNG BASE. 3. FOCAL PNEUMONIA VERSUS PSEUDOTUMOR, RIGHT MIDLUNG.
[2016-08-30 07:35] LABS: Glucose,Whole Blood 100 mg/dL (75-99)
--- NOTE | 2016-08-30 07:43 | P.PN ---
Subjective Principal diagnosis: Sepsis and cellulitis of foot ulcers. This is a continue progress on a 61-year-old white male essentially admitted for cellulitis. The patient is actually more arousable but still confused. He states today, Tuesday, is Tuesday. Cervix there is some disorientation. Wound debridement was done by shift. Otherwise, I suspect he is able to transfer to general medical floor telemetry. Objective - Vital Signs Vital signs: Vital Signs Temp 97.9 F 08/30/16 04:00 Pulse 88 08/30/16 07:31 Resp 20 08/30/16 05:00 BP 121/71 08/30/16 05:00 Pulse Ox 96 08/30/16 05:00 Intake & Output 08/29/16 08/30/16 08/30/16 18:59 06:59 18:59 Intake Total 910 270 Output Total 3470 1185 Balance -2560 -915 Weight 147.5 kg Intake: IV 610 220 .9 @ 20 260 220 Mvi, Adult No.4 with Vit 350 K 10 ml Trace (Conc-1Ml/ Dose) 1 ml Calcium Gluconate 1,000 mg Sodium Acetate 10 meq Potassium Chloride 14 meq Magnesium Sulfate 4 meq Potassium Phosphate 9 mmol In Amino Acid 5%- D25w 1,000 ml @ 70 mls/hr IV .BY DURATION [facility] Rx#: [id number] Intake, IV Titration 300 50 Amount Cefepime 2 gm In Sodium 50 50 Chloride 0.9% 50 ml @ 100 mls/hr IVPB Q12HR [facility] Rx #:[id number] DAPTOmycin 500 mg In 50 Sodium Chloride 0.9% 50 ml @ 100 mls/hr IV Q24H [facility] Rx#:[id number] Magnesium Sulfate-D5w Pmx 200 1 gm In Dextrose/Water 1 100ml.bag @ 100 mls/hr IVPB Q1H [facility] Rx#: [id number] Oral 0 Output: Urine 3470 1185 Other: Voiding Method Indwelling Catheter Indwelling Catheter - Constitutional General appearance: Present: obese - EENT Eyes: Absent: abnormal pupil - Respiratory Respiratory: bilateral: diminished - Cardiovascular Rhythm: irregularly irregular Heart sounds: normal: S1, S2 - Gastrointestinal General gastrointestinal: Present: soft. Absent: tenderness - Integumentary Integumentary: Present: cellulitis - Labs CBC & Chem 7: 08/30/16 05:29 08/30/16 05:29 Labs: Abnormal Lab Results - Last 24 Hours (Table) 08/29/16 08/29/16 08/29/16 Range/Units 09:26 10:00 12:01 WBC (3.8-10.6) k/uL RBC (4.30-5.90) m/uL Hgb (13.0-17.5) gm/dL Hct (39.0-53.0) % MCHC (31.0-37.0) g/dL Neutrophils # (1.3-7.7) k/uL PT 14.0 H (9.0-12.0) sec APTT (22.0-30.0) sec BUN (9-20) mg/dL Creatinine (0.66-1.25) mg/dL Glucose (74-99) mg/dL POC Glucose (mg/dL) 202 H 214 H (75-99) mg/dL Urine Protein (Negative) Urine Blood (Negative) Ur Leukocyte Esterase (Negative) Urine RBC (0-5) /hpf Urine WBC (0-5) /hpf Urine WBC Clumps (None) /hpf Urine Bacteria (None) /hpf Urine Mucus (None) /hpf Urine Yeast (Budding) (None) /hpf 08/29/16 08/29/16 08/29/16 Range/Units 12:55 13:29 17:06 WBC (3.8-10.6) k/uL RBC (4.30-5.90) m/uL Hgb (13.0-17.5) gm/dL Hct (39.0-53.0) % MCHC (31.0-37.0) g/dL Neutrophils # (1.3-7.7) k/uL PT (9.0-12.0) sec APTT 55.8 H (22.0-30.0) sec BUN (9-20) mg/dL Creatinine (0.66-1.25) mg/dL Glucose (74-99) mg/dL POC Glucose (mg/dL) 145 H (75-99) mg/dL Urine Protein 1+ H (Negative) Urine Blood Moderate H (Negative) Ur Leukocyte Esterase Large H (Negative) Urine RBC >182 H (0-5) /hpf Urine WBC >182 H (0-5) /hpf Urine WBC Clumps Many H (None) /hpf Urine Bacteria Rare H (None) /hpf Urine Mucus Rare H (None) /hpf Urine Yeast (Budding) Many H (None) /hpf 08/29/16 08/30/16 08/30/16 Range/Units 20:43 01:02 05:29 WBC 14.7 H (3.8-10.6) k/uL RBC 3.82 L (4.30-5.90) m/uL Hgb 11.1 L (13.0-17.5) gm/dL Hct 37.3 L (39.0-53.0) % MCHC 29.8 L (31.0-37.0) g/dL Neutrophils # 12.0 H (1.3-7.7) k/uL PT (9.0-12.0) sec APTT (22.0-30.0) sec BUN (9-20) mg/dL Creatinine (0.66-1.25) mg/dL Glucose (74-99) mg/dL POC Glucose (mg/dL) 143 H 129 H (75-99) mg/dL Urine Protein (Negative) Urine Blood (Negative) Ur Leukocyte Esterase (Negative) Urine RBC (0-5) /hpf Urine WBC (0-5) /hpf Urine WBC Clumps (None) /hpf Urine Bacteria (None) /hpf Urine Mucus (None) /hpf Urine Yeast (Budding) (None) /hpf 08/30/16 08/30/16 08/30/16 Range/Units 05:29 05:29 07:34 WBC (3.8-10.6) k/uL RBC (4.30-5.90) m/uL Hgb (13.0-17.5) gm/dL Hct (39.0-53.0) % MCHC (31.0-37.0) g/dL Neutrophils # (1.3-7.7) k/uL PT 15.3 H (9.0-12.0) sec APTT 31.4 H (22.0-30.0) sec BUN 47 H (9-20) mg/dL Creatinine 2.10 H (0.66-1.25) mg/dL Glucose 105 H (74-99) mg/dL POC Glucose (mg/dL) 100 H (75-99) mg/dL Urine Protein (Negative) Urine Blood (Negative) Ur Leukocyte Esterase (Negative) Urine RBC (0-5) /hpf Urine WBC (0-5) /hpf Urine WBC Clumps (None) /hpf Urine Bacteria (None) /hpf Urine Mucus (None) /hpf Urine Yeast (Budding) (None) /hpf Assessment and Plan (1) Open wound of both legs with complication Status: Acute (2) Cellulitis of left lower extremity Status: Acute (3) Cellulitis of right leg Status: Acute (4) Illiterate Status: Acute (5) Smoking Status: Acute Plan: We'll go ahead and transfer to general medical floor. Check CBC and CMP and PT/INR in a.m. Anticipate transfer to ECF when stabilizing. Still is some confusion, we will follow this closely. Time with Patient: Greater than 30
[2016-08-30] MEDS: [UNRECOGNIZED DRUG - REMARK] IV SCH ×8 (08:37)
[2016-08-30] MEDS: DOCUSATE 100 MG CAP PO SCH (08:38)
[2016-08-30] MEDS: DILTIAZEM ORAL 60 MG TAB PO SCH ×4 (08:38→21:50)
[2016-08-30] MEDS: NICOTINE 21MG/24HR PATCH TRANSDERM SCH (08:38)
[2016-08-30] MEDS: GABAPENTIN 300 MG CAP PO SCH ×2 (08:39→20:40)
[2016-08-30] MEDS: THIAMINE 100 MG TAB PO SCH ×2 (08:39→20:40)
[2016-08-30] MEDS: FENOFIBRATE 160 MG TAB PO SCH (08:39)
[2016-08-30] MEDS: PANTOPRAZOLE 40 MG/10 ML VIAL IVP SCH (08:39)
[2016-08-30] MEDS: NYSTATIN 100,000 UNIT/ML SUSP 500,000 UNIT/5 ML CUP PO SCH ×4 (08:39→21:50)
[2016-08-30] MEDS: TAMSULOSIN 0.4 MG CAP.ER.24H PO SCH (08:39)
[2016-08-30] MEDS: FUROSEMIDE 10 MG/ML 4 ML VIAL IV SCH (08:39)
[2016-08-30] MEDS: CEFEPIME 2 GM in SODIUM CHLORIDE 0.9% 50 ML IVPB SCH (08:49)
[2016-08-30] MEDS: SODIUM CHLORIDE 0.9% 1,000 ML IV SCH (11:43)
[2016-08-30] MEDS: INSULIN GLARGINE 100 UNIT/ML 10 ML VIAL SQ SCH (11:43)
[2016-08-30 11:44] LABS: Glucose,Whole Blood 202 mg/dL (75-99)
[2016-08-30 11:53] VITALS: BMI 46.6
[2016-08-30] MEDS: CYANOCOBALAMIN 500 MCG TAB PO SCH (12:23)
[2016-08-30] MEDS: DAPTOmycin 500 MG in SODIUM CHLORIDE 0.9% 50 ML IV SCH (14:17)
[2016-08-30] MEDS ORDERED: ACETAMINOPHEN TAB 500 MG TAB PO PRN (15:56)
[2016-08-30 17:21] LABS: Glucose,Whole Blood 111 mg/dL (75-99)
[2016-08-30] MEDS ORDERED: WARFARIN 2.5 MG TAB PO ONE (18:00)
[2016-08-30 20:10] LABS: Glucose,Whole Blood 153 mg/dL (75-99)
[2016-08-30] MEDS: FINASTERIDE 5 MG TAB PO SCH (20:40)
[2016-08-30] MEDS: QUEtiapine 25 MG TAB PO SCH (20:40)
[2016-08-30] MEDS: COLLAGENASE 250 UNIT/GM OINTMENT 30 GM TUBE TOPICAL SCH (20:40)
--- NOTE | 2016-08-30 23:03 | P.PN ---
Subjective Principal diagnosis: fever cellulitis 61-year-old male with a long-standing history of diabetes mellitus type 2 poorly controlled as well as coronary artery disease congestive heart failure and chronic lower extremity edema. He was recently hospitalized without evidence of an infection to his left leg and heel. He was seen by vascular surgery has been following the wound center. The patient has been on antibiotic therapy with ciprofloxacin. For the isolated pathogens. The patient relates in the days before coming to hospital he started to feel ill. Increasing weakness. Increasing swelling and redness to the leg. An increasing over the left heel. His was trying to get him to come to the hospital for days before he finally came because he became so weak that he could no longer object. Upon arrival to the emergency center temperature 102.2 was noted. He was also having difficulty with worsening arrhythmia with his atrial fibrillation having a rapid ventricular response. He has been seen by cardiology. And there is been improvement of his uncontrolled rhythm. He still feels poorly. He's had fever which is feeling slightly better at this time still has chills. Is concerned about the ongoing ulceration to his left heel. He relates that he has not been offloading it. He can't wear any shoes causes his legs are so swollen. Spends his time in a lazy- boy recliner when he is at home. His had a further decline of his status. He was transferred to the intensive care unit. He had BiPAP in place for worsening respiratory status. The patient became somewhat uncooperative and somnolent. And as noted the patient' s related that he was a heavy drinker. He is on the CIWA protocol and Ativan is being weaned. He is showing improvement Patient has had a mild improvement today. He is less sedated. He is currently off of BiPAP. He has an high flow oxygen. Seems to be comfortable and now mentation has improved, recognized me by name. Objective - Vital Signs Vital signs: Vital Signs Temp 98.1 F 08/30/16 20:05 Pulse 101 H 08/30/16 20:05 Resp 16 08/30/16 20:05 BP 136/74 08/30/16 20:05 Pulse Ox 93 L 08/30/16 20:05 Intake & Output 08/30/16 08/30/16 08/31/16 06:59 18:59 06:59 Intake Total 270 340 50 Output Total 1185 1665 Balance -915 -1325 50 Weight 147.5 kg 147.5 kg Intake: IV 220 340 .9 @ 20 220 340 Intake, IV Titration 50 Amount Cefepime 2 gm In Sodium 50 Chloride 0.9% 50 ml @ 100 mls/hr IVPB Q12HR [facility] Rx #:[id number] Oral 0 50 Output: Urine 1185 1665 Other: Voiding Method Indwelling Catheter Indwelling Catheter - Exam 61 year-old male who suffers from obesity. Remains in the intensive care unit. He is currently on high flow oxygen not BiPAP. HEENT: Anicteric conjunctiva are pink and moist nasal mucosa grossly intact without significant lesions, there is no thrush. Dentition is warm for age. Neck: The neck is supple without significant lymphadenopathy or thyromegaly. Lungs: Symmetrical air entry is noted with evidence of extra wheezes that are scattered. No julian bronchial sounds were noted. No egophony or dullness. Heart: Irregular with an audible S1 and S2, no S3 soft S4, no new murmur click or rub. Abdomen: Obese, Positive bowel sounds soft and nontender without palpable masses or organomegaly. There was no guarding or rebound. Evidence of the prior abdominal surgeries noted. At the most superior aspect of the surgical incision is evidence of some hyper-granulation tissue. At the base of the hyperventilation tissue is exposed mesh. Extremities: There is bilateral lower extremity edema. There some erythema to both lower extremities. Much more prominent on the right lower extremity from the knee distally. There is evidence of the significant ulceration to the heel that measures at 7.1 x 5.2 x 0.3 cm. Neuro:He is sitting in the specialty chair. Does open eyes. Seems to recognize his . Not agitated more comfortable and some speech is intelligible. - Labs CBC & Chem 7: 08/30/16 05:29 08/30/16 05:29 Labs: Abnormal Lab Results - Last 24 Hours (Table) 08/30/16 08/30/16 08/30/16 Range/Units 01:02 05:29 05:29 WBC 14.7 H (3.8-10.6) k/uL RBC 3.82 L (4.30-5.90) m/uL Hgb 11.1 L (13.0-17.5) gm/dL Hct 37.3 L (39.0-53.0) % MCHC 29.8 L (31.0-37.0) g/dL Neutrophils # 12.0 H (1.3-7.7) k/uL PT (9.0-12.0) sec APTT (22.0-30.0) sec BUN 47 H (9-20) mg/dL Creatinine 2.10 H (0.66-1.25) mg/dL Glucose 105 H (74-99) mg/dL POC Glucose (mg/dL) 129 H (75-99) mg/dL 08/30/16 08/30/16 08/30/16 Range/Units 05:29 07:34 11:42 WBC (3.8-10.6) k/uL RBC (4.30-5.90) m/uL Hgb (13.0-17.5) gm/dL Hct (39.0-53.0) % MCHC (31.0-37.0) g/dL Neutrophils # (1.3-7.7) k/uL PT 15.3 H (9.0-12.0) sec APTT 31.4 H (22.0-30.0) sec BUN (9-20) mg/dL Creatinine (0.66-1.25) mg/dL Glucose (74-99) mg/dL POC Glucose (mg/dL) 100 H 202 H (75-99) mg/dL 08/30/16 08/30/16 Range/Units 17:20 20:06 WBC (3.8-10.6) k/uL RBC (4.30-5.90) m/uL Hgb (13.0-17.5) gm/dL Hct (39.0-53.0) % MCHC (31.0-37.0) g/dL Neutrophils # (1.3-7.7) k/uL PT (9.0-12.0) sec APTT (22.0-30.0) sec BUN (9-20) mg/dL Creatinine (0.66-1.25) mg/dL Glucose (74-99) mg/dL POC Glucose (mg/dL) 111 H 153 H (75-99) mg/dL Laboratory Results WBC 14.7 k/uL (3.8-10.6) H 08/30/16 05:29 RBC 3.82 m/uL (4.30-5.90) L 08/30/16 05:29 Hgb 11.1 gm/dL (13.0-17.5) L 08/30/16 05:29 Hct 37.3 % (39.0-53.0) L 08/30/16 05:29 MCV 97.6 fL (80.0-100.0) 08/30/16 05:29 MCH 29.1 pg (25.0-35.0) 08/30/16 05:29 MCHC 29.8 g/dL (31.0-37.0) L 08/30/16 05:29 RDW 15.5 % (11.5-15.5) 08/30/16 05:29 Plt Count 347 k/uL (150-450) 08/30/16 05:29 Neutrophils % 82 % 08/30/16 05:29 Lymphocytes % 8 % 08/30/16 05:29 Monocytes % 5 % 08/30/16 05:29 Eosinophils % 3 % 08/30/16 05:29 Basophils % 1 % 08/30/16 05:29 Neutrophils # 12.0 k/uL (1.3-7.7) H 08/30/16 05:29 Lymphocytes # 1.1 k/uL (1.0-4.8) 08/30/16 05:29 Monocytes # 0.7 k/uL (0-1.0) 08/30/16 05:29 Eosinophils # 0.4 k/uL (0-0.7) 08/30/16 05:29 Basophils # 0.1 k/uL (0-0.2) 08/30/16 05:29 Manual Slide Review Performed 08/19/16 07:30 Hypochromasia Marked 08/30/16 05:29 Poikilocytosis Slight 08/28/16 04:13 Macrocytosis Slight 08/27/16 05:00 PT 15.3 sec (9.0-12.0) H 08/30/16 05:29 INR 1.6 (<1.1) 08/30/16 05:29 APTT 31.4 sec (22.0-30.0) H 08/30/16 05:29 Sample Site rrad 08/23/16 09:48 ABG pH 7.35 (7.35-7.45) 08/23/16 09:48 ABG pCO2 55 mmHg (35-45) H 08/23/16 09:48 ABG pO2 92 mmHg (83-108) 08/23/16 09:48 ABG HCO3 30 mmol/L (21-25) H 08/23/16 09:48 ABG Total CO2 31 mmol/L (19-24) H 08/23/16 09:48 ABG O2 Saturation 97.0 % (94-97) 08/23/16 09:48 ABG Base Excess 4.3 mmol/L 08/23/16 09:48 FiO2 40 % 08/23/16 09:48 Sodium 137 mmol/L (137-145) 08/30/16 05:29 Potassium 4.0 mmol/L (3.5-5.1) 08/30/16 05:29 Chloride 100 mmol/L (98-107) 08/30/16 05:29 Carbon Dioxide 26 mmol/L (22-30) 08/30/16 05:29 Anion Gap 11 mmol/L 08/30/16 05:29 BUN 47 mg/dL (9-20) H 08/30/16 05:29 Creatinine 2.10 mg/dL (0.66-1.25) H 08/30/16 05:29 Est GFR (MDRD) Af Amer 39 (>60 ml/min/1.73 sqM) 08/30/16 05:29 Est GFR (MDRD) Non-Af 32 (>60 ml/min/1.73 sqM) 08/30/16 05:29 Glucose 105 mg/dL (74-99) H 08/30/16 05:29 POC Glucose (mg/dL) 153 mg/dL (75-99) H 08/30/16 20:06 POC Glu Supervisor [employer] VINAYAK YuShelby 08/30/16 20:[address] Glu mg/dL 134 mg/dL 08/23/16 09:48 Hemoglobin A1c 6.3 % (4.2-6.1) H 08/23/16 09:48 Plasma Lactic Acid Cristiano 1.1 mmol/L (0.7-2.0) 08/20/16 03:09 Calcium 8.8 mg/dL (8.4-10.2) 08/30/16 05:29 Ionized Calcium Mara 5.0 mg/dL (4.5-5.3) 08/24/16 05:38 Phosphorus 3.7 mg/dL (2.5-4.5) 08/30/16 05:29 Magnesium 2.0 mg/dL (1.6-2.3) 08/30/16 05:29 Total Bilirubin 1.0 mg/dL (0.2-1.3) 08/26/16 04:55 AST 25 U/L (17-59) 08/26/16 04:55 ALT 19 U/L (21-72) L 08/26/16 04:55 Alkaline Phosphatase 82 U/L (38-126) 08/26/16 04:55 Ammonia 23 umol/L (<30) 08/27/16 05:00 Total Creatine Kinase 209 U/L (55-170) H 08/15/16 11:54 CK-MB (CK-2) 2.9 ng/mL (0.0-2.4) H* 08/15/16 11:54 CK-MB (CK-2) Rel Index 1.4 08/15/16 11:54 Troponin I 0.201 ng/mL (0.000-0.034) H* 08/15/16 11:54 NT-Pro-B Natriuret Pep 7750 pg/mL 08/20/16 03:09 Total Protein 6.6 g/dL (6.3-8.2) 08/26/16 04:55 Albumin 3.0 g/dL (3.5-5.0) L 08/26/16 04:55 Triglycerides 203 mg/dL (<150) H 08/23/16 09:48 TSH 2.480 mIU/L (0.465-4.680) 08/20/16 04:00 Urine Color Yellow 08/29/16 12:55 Urine Appearance Turbid (Clear) 08/29/16 12:55 Urine pH 6.0 (5.0-8.0) 08/29/16 12:55 Ur Specific [place] 1.011 (1.001-1.035) 08/29/16 12:55 Urine Protein 1+ (Negative) H 08/29/16 12:55 Urine Glucose (UA) Negative (Negative) 08/29/16 12:55 Urine Ketones Negative (Negative) 08/29/16 12:55 Urine Blood Moderate (Negative) H 08/29/16 12:55 Urine Nitrite Negative (Negative) 08/29/16 12:55 Urine Bilirubin Negative (Negative) 08/29/16 12:55 Urine Urobilinogen <2.0 mg/dL (<2.0) 08/29/16 12:55 Ur Leukocyte Esterase Large (Negative) H 08/29/16 12:55 Urine RBC >182 /hpf (0-5) H 08/29/16 12:55 Urine WBC >182 /hpf (0-5) H 08/29/16 12:55 Urine WBC Clumps Many /hpf (None) H 08/29/16 12:55 Ur Squamous Epith Cells 3 /hpf (0-4) 08/20/16 04:20 Amorphous Sediment Rare /hpf (None) H 08/20/16 04:20 Urine Bacteria Rare /hpf (None) H 08/29/16 12:55 Hyaline Casts 8 /lpf (0-2) H 08/15/16 00:40 Urine Mucus Rare /hpf (None) H 08/29/16 12:55 Urine Yeast (Budding) Many /hpf (None) H 08/29/16 12:55 Vancomycin Trough 31.1 ug/mL H* 08/17/16 23:00 Random Vancomycin 17.0 ug/mL 08/20/16 04:00 Microbiology 08/20/16 14:50 Blood Blood Culture - Final No Growth after 144 hours 08/19/16 11:30 Heel - Right Gram Stain - Final 08/19/16 11:30 Heel - Right Wound Culture - Final Citrobacter freundii Enterococcus faecalis VRE Radhika albicans 08/20/16 04:20 Urine,Catheterized Urine Culture - Final 08/15/16 00:40 Blood Blood Culture - Final No Growth after 144 hours 08/15/16 00:40 Urine,Voided Urine Culture - Final Assessment and Plan (1) Sepsis Narrative/Plan: 61-year-old male who has a history of multiple medical troubles that includes diabetes obesity coronary artery disease and atrial fibrillation. Presents to Hospital feeling very poorly. He had worsening cardiac dysrhythmia his atrial fibrillation and developed a rapid ventricular response. Became weak and ill and constantly remitted to coming to hospital. He is having difficulty with worsening ulceration to his heel. It was noted during his last hospital stay. And is to be getting ongoing care at the wound healing Center. During the last stay it was a goal to have him go to extended care however he refused. And then with therapy he was proving that he was able to get up and move a bit. Despite this he has not been doing well at home. He's been getting worse. He now has marked worsening infection to the right leg. Prior culture shows evidence of MRSA, klebsiella and Proteus infection. Constantly vancomycin and ceftriaxone were given for now until we have further data. Avoid Levaquin use since he is on Coumadin. Patient is chronic medical noncompliance. He has hemoglobin A1c was down to 6.1 Patient has been having difficulties with offloading the heel. A brown air boot is been requested to get up and off the bed at this time. We'll need to have a specialty boot designed the time of his discharge to take weight off of the heel. He will follow the wound healing Center. He' will continue follow- up with the vascular surgeon. Local wound care with Santyl will be utilized given large amount of necrotic material, may need surgical debridement Pain control is improved Atrial fibrillation is controlled. Continues to have leukocytosis but improving with current wound care and antibiotic therapy Creatinine is increased. Ketorolac was discontinued and being monitored. Creatinine remains at 1.6 Was receiving vancomycin therapy. However when the VRE that was isolated this was altered to daptomycin. Wound culture with gram-negative bacilli. Patient does have a remote history of pseudomonal infection. As well as of MRSA. cefepime given the current culture results. Respiratory failure has improved and It has been discussed with his the possibility of a DO NOT RESUSCITATE order. She does not believe she is quite ready. We discussed that her has not taken good care of himself. In no appears to have chronic respiratory failure there is BiPAP dependent. If he does not improve he may require tracheostomy and chronic ventilator placement. Fortunately has had an improvement in his status today. The issue is less pressing. However DO NOT RESUSCITATE order is still appropriate. She will discuss this with her son. Will eventually transfer to [facility] needs to complete a course of antibiotics. will evaluate the heel now that he is more stable. 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
[2016-08-31 06:40] LABS: Basophils # (A) 0.1 k/uL (0-0.2); Basophils % (A) 1 %; CH 29.3; CHCM 30.7; Eosinophils # (A) 0.4 k/uL (0-0.7); Eosinophils % (A) 3 %; HCT 37.1 % (39.0-53.0); HDW 3.14; HGB 11.4 gm/dL (13.0-17.5); Hypochromasia Moderate; Luc # (Auto) 0.43; Luc % (Auto) 3; Lymphocytes # (A) 1.1 k/uL (1.0-4.8); Lymphocytes % (A) 8 %; MCH 29.6 pg (25.0-35.0); MCHC 30.9 g/dL (31.0-37.0); MCV 95.9 fL (80.0-100.0); Mean Platelet Volume 8.1; Monocytes % (A) 7 %; Neutrophils # (A) 11.2 k/uL (1.3-7.7); Neutrophils % (A) 79 %; RBC 3.86 m/uL (4.30-5.90); RDW 15.6 % (11.5-15.5); WBC 14.2 k/uL (3.8-10.6)
[2016-08-31 07:04] LABS: Calcium 8.7 mg/dL (8.4-10.2); Magnesium 1.9 mg/dL (1.6-2.3); Phosphorous 3.8 mg/dL (2.5-4.5); Potassium 4.1 mmol/L (3.5-5.1); Total Bilirubin 1.3 mg/dL (0.2-1.3); Total Protein 6.3 g/dL (6.3-8.2)
[2016-08-31 07:19] LABS: Glucose,Whole Blood 110 mg/dL (75-99)
[2016-08-31 07:58] LABS: Prothrombin Time 19.3 sec (9.0-12.0)
[2016-08-31] MEDS: INSULIN LISPRO (humaLOG) 300 UNIT/3 ML VIAL SQ SCH ×4 (08:48→22:21)
[2016-08-31] MEDS: CEFEPIME 2 GM in SODIUM CHLORIDE 0.9% 50 ML IVPB SCH (08:49)
[2016-08-31] MEDS: NICOTINE 21MG/24HR PATCH TRANSDERM SCH (08:49)
[2016-08-31] MEDS: DOCUSATE 100 MG CAP PO SCH (08:50)
[2016-08-31] MEDS: DILTIAZEM ORAL 60 MG TAB PO SCH ×4 (08:50→22:20)
[2016-08-31] MEDS: TAMSULOSIN 0.4 MG CAP.ER.24H PO SCH (08:51)
[2016-08-31] MEDS: NYSTATIN 100,000 UNIT/ML SUSP 500,000 UNIT/5 ML CUP PO SCH ×4 (08:51→22:21)
[2016-08-31] MEDS: THIAMINE 100 MG TAB PO SCH ×2 (08:51→22:20)
[2016-08-31] MEDS: PANTOPRAZOLE 40 MG/10 ML VIAL IVP SCH (08:51)
[2016-08-31] MEDS: GABAPENTIN 300 MG CAP PO SCH ×2 (08:52→22:21)
[2016-08-31] MEDS: INSULIN GLARGINE 100 UNIT/ML 10 ML VIAL SQ SCH (08:55)
[2016-08-31] MEDS: FENOFIBRATE 160 MG TAB PO SCH (09:00)
[2016-08-31] MEDS: FUROSEMIDE 10 MG/ML 4 ML VIAL IV SCH (09:05)
[2016-08-31] MEDS: BUDESONIDE 0.5 MG/2 ML NEBU INHALATION SCH ×3 (09:55→20:44)
[2016-08-31] MEDS: LEVALBUTEROL NEB 1.25 MG/3 ML AMP INHALATION SCH ×6 (09:55→20:44)
[2016-08-31] MEDS: SODIUM CHLORIDE 0.9% 1,000 ML IV SCH (10:05)
[2016-08-31 11:41] LABS: Glucose,Whole Blood 143 mg/dL (75-99)
[2016-08-31] MEDS: CYANOCOBALAMIN 500 MCG TAB PO SCH (12:40)
--- NOTE | 2016-08-31 13:32 | NM ---
EXAMINATION TYPE: NM bone 3 phase DATE OF EXAM: 08/31/2016 1:22 PM COMPARISON: NONE HISTORY: Left heel redness and swelling Triple phase bone scintigraphy was performed following the injection of25.4 mCi Tc 99m MDP. Immediat e images and 5 hours post injection images acquired. FINDINGS: There is increased perfusion to the right heel. Increased soft tissue uptake seen compatible cellulit is. Delayed images demonstrate focal increased uptake involving the MTP joint bilaterally of the first di git as well as the right calcaneus IMPRESSION: Increased flow, soft tissue uptake and delayed uptake involving the base of the right calcaneus could be compatible with cellulitis and osteomyelitis. No abnormal uptake within the left calcaneus. Abnormal uptake involving the tarsal bones and MTP joints of the digits likely post arthritic.
--- NOTE | 2016-08-31 13:46 | CT ---
EXAMINATION TYPE: CT chest wo con DATE OF EXAM: 08/31/2016 1:15 PM COMPARISON: Radiograph 08/30/2016 and 01/09/2016. CT shoulder 01/13/2016. HISTORY: 61-year-old male assess right middle lobe pseudotumor versus other abnormality seen on chest x-ray. TECHNIQUE: Contiguous axial scanning of the chest without IV contrast. Coronal and sagittal reconstru ctions performed. CT DLP: 831.70 mGycm Automated exposure control for dose reduction was used. FINDINGS: There is moderate left greater than right gynecomastia. Suspect a 1.6 cm sebaceous cyst in the right axilla. Heart is upper limits of normal in size with trace pericardial fluid. Aorta is normal caliber with mild atherosclerotic calcifications and conventional arch vessel branchi ng anatomy. Borderline sized subcarinal lymph node at 1.5 cm. Additional borderline sized 1 cm lymph node along t he right azygoesophageal recess. 1 cm right apical pulmonary nodule. Mild centrilobular emphysema with mild diffuse bronchial wall thi ckening. Small right-sided pleural effusion. Suggestion of some pleural thickening at the posterior r ight midlung. There is a 7.5 cm masslike area of opacity in the posterior right midlung corresponding to the radiographic finding. No abnormal density was clearly seen on the 01/09/2016 chest x-ray. Small left pleural effusion with adjacent subsegmental areas of left lower lobe atelectasis. Postsurgical changes at the GE junction. A ventral abdominal wall hernia is demonstrated which appear s contained by mesh material. Small bowel loops herniate between anterior abdominal wall fascia and m esh. Partially visualized. Liver appears enlarged but is only partially visualized. Bones: Endplate spondylosis mid to lower thoracic spine. There are chronic healed fracture deformiti es of the right-sided ribs. IMPRESSION: 1. SMALL LEFT GREATER THAN RIGHT PLEURAL EFFUSIONS WITH ADJACENT ATELECTASIS. 2. MASSLIKE AREA OF CONSOLIDATION MEASURING 7.5 CM AT THE POSTERIOR RIGHT MID LUNG CORRESPONDING TO T HE RADIOGRAPHIC ABNORMALITY. GIVEN THE RELATIVELY RAPID APPEARANCE, NEOPLASM IS LESS LIKELY IN THE DI FFERENTIAL. CORRELATE FOR PNEUMONIA. FOLLOW-UP CONTRAST ENHANCED CT RECOMMENDED AFTER TREATMENT TO EN SURE IMPROVEMENT. 3. A 1 CM RIGHT APICAL PULMONARY NODULE IS NEW FROM 01/13/2016. AN ADDITIONAL INFECTIOUS/INFLAMMATORY FOCUS IS POSSIBLE. THIS SHOULD ALSO BE REASSESSED AT FOLLOW-UP TO EXCLUDE A SMALL EARLY NEOPLASM. 4. A COUPLE BORDERLINE ENLARGED MEDIASTINAL LYMPH NODES ARE LIKELY REACTIVE. 5. SPLENOMEGALY. 6. VENTRAL ABDOMINAL WALL HERNIA CONTAINING SMALL BOWEL LOOPS EXTENDING BETWEEN MESH MATERIAL AND ANT ERIOR ABDOMINAL WALL FASCIA.
[2016-08-31] MEDS: DAPTOmycin 500 MG in SODIUM CHLORIDE 0.9% 50 ML IV SCH (14:55)
[2016-08-31] MEDS: traMADol 50 MG TAB PO SCH ×2 (15:28→21:50)
[2016-08-31 17:03] LABS: Glucose,Whole Blood 115 mg/dL (75-99)
[2016-08-31] MEDS: WARFARIN 1.25 MG TAB PO SCH (17:55)
--- NOTE | 2016-08-31 18:20 | P.PN ---
Subjective Principal diagnosis: Acute hypoxic respiratory failure Patient seen and examined in the ICU with nursing staff at bedside. Patient is much more alert and oriented. He has been hemodynamically stable. He is going to be transferred out of the ICU today. He is on 4L NC. Objective - Vital Signs Vital signs: Vital Signs Temp 97.9 F 08/30/16 04:00 Pulse 97 08/30/16 11:45 Resp 21 08/30/16 07:00 BP 141/71 08/30/16 07:00 Pulse Ox 95 08/30/16 07:00 Intake & Output 08/29/16 08/30/16 08/30/16 18:59 06:59 18:59 Intake Total 910 270 20 Output Total 3470 1185 165 Balance -2560 -915 -145 Weight 147.5 kg 147.5 kg Intake: IV 610 220 20 .9 @ 20 260 220 20 Mvi, Adult No.4 with Vit 350 K 10 ml Trace (Conc-1Ml/ Dose) 1 ml Calcium Gluconate 1,000 mg Sodium Acetate 10 meq Potassium Chloride 14 meq Magnesium Sulfate 4 meq Potassium Phosphate 9 mmol In Amino Acid 5%- D25w 1,000 ml @ 70 mls/hr IV .BY DUR[facility] Rx#: [id number] Intake, IV Titration 300 50 Amount Cefepime 2 gm In Sodium 50 50 Chloride 0.9% 50 ml @ 100 mls/hr IVPB Q12HR [facility] Rx #:[id number] DAPTOmycin 500 mg In 50 Sodium Chloride 0.9% 50 ml @ 100 mls/hr IV Q24H [facility] Rx#:[id number] Magnesium Sulfate-D5w Pmx 200 1 gm In Dextrose/Water 1 100ml.bag @ 100 mls/hr IVPB Q1H [facility] Rx#: [id number] Oral 0 Output: Urine 3470 1185 165 Other: Voiding Method Indwelling Catheter Indwelling Catheter Indwelling Catheter - Exam Gen.: Alert, conversational, still confused Cardiovascular: Irregular rate and rhythm, S1/S2 Lungs: Diminished breath sounds at the bases with scattered crackles Abdomen: Soft nontender nondistended positive bowel sounds Extremities: Cellulitis, chronic venous stasis, edema - Labs CBC & Chem 7: 08/30/16 05:29 08/30/16 05:29 Labs: Abnormal Lab Results - Last 24 Hours (Table) 08/29/16 08/29/16 08/29/16 Range/Units 10:00 13:29 17:06 WBC (3.8-10.6) k/uL RBC (4.30-5.90) m/uL Hgb (13.0-17.5) gm/dL Hct (39.0-53.0) % MCHC (31.0-37.0) g/dL Neutrophils # (1.3-7.7) k/uL PT 14.0 H (9.0-12.0) sec APTT 55.8 H (22.0-30.0) sec BUN (9-20) mg/dL Creatinine (0.66-1.25) mg/dL Glucose (74-99) mg/dL POC Glucose (mg/dL) 145 H (75-99) mg/dL 08/29/16 08/30/16 08/30/16 Range/Units 20:43 01:02 05:29 WBC 14.7 H (3.8-10.6) k/uL RBC 3.82 L (4.30-5.90) m/uL Hgb 11.1 L (13.0-17.5) gm/dL Hct 37.3 L (39.0-53.0) % MCHC 29.8 L (31.0-37.0) g/dL Neutrophils # 12.0 H (1.3-7.7) k/uL PT (9.0-12.0) sec APTT (22.0-30.0) sec BUN (9-20) mg/dL Creatinine (0.66-1.25) mg/dL Glucose (74-99) mg/dL POC Glucose (mg/dL) 143 H 129 H (75-99) mg/dL 08/30/16 08/30/16 08/30/16 Range/Units 05:29 05:29 07:34 WBC (3.8-10.6) k/uL RBC (4.30-5.90) m/uL Hgb (13.0-17.5) gm/dL Hct (39.0-53.0) % MCHC (31.0-37.0) g/dL Neutrophils # (1.3-7.7) k/uL PT 15.3 H (9.0-12.0) sec APTT 31.4 H (22.0-30.0) sec BUN 47 H (9-20) mg/dL Creatinine 2.10 H (0.66-1.25) mg/dL Glucose 105 H (74-99) mg/dL POC Glucose (mg/dL) 100 H (75-99) mg/dL 08/30/16 Range/Units 11:42 WBC (3.8-10.6) k/uL RBC (4.30-5.90) m/uL Hgb (13.0-17.5) gm/dL Hct (39.0-53.0) % MCHC (31.0-37.0) g/dL Neutrophils # (1.3-7.7) k/uL PT (9.0-12.0) sec APTT (22.0-30.0) sec BUN (9-20) mg/dL Creatinine (0.66-1.25) mg/dL Glucose (74-99) mg/dL POC Glucose (mg/dL) 202 H (75-99) mg/dL Assessment and Plan Plan: Acute hypoxic and hypercapnic respiratory failure Acute exacerbation of CHF, diastolic, ejection fraction 60-65% Atrial fibrillation with rapid ventricular response Likely underlying COPD, active tobacco abuse Delirium tremens Coumadin coagulopathy, therapeutic Sepsis Anemia, normochromic normocytic Thrombocytosis Hyperammonemia Lower extremity cellulitis: polymicrobial Diabetic ulcer DM2 Super morbid obesity, concerning for underlying MACO/OHS Toxic metabolic encephalopathy Acute kidney injury on chronic kidney disease Pulmonary hypertension, moderate to severe, RVSP 53 mmHg Peripheral arterial disease Active tobacco abuse Thrush Continue BiPAP, ok to trial off for short periods of time Diuresis, Lasix decrease to daily Monitor renal function Serial CXR DC TPN Colace Nystatin Bronchodilators and Pulmicort Antibiotics per ID Wound care Continue GI and DVT Prophylaxis: Protonix, Coumadin Discontinue haldol, decrease amount of benzos/opiates patient is receiving Smoking cessation highly recommended, Nicotine TD Consult PT and OT Consult PMR Restart patient's home oral medications, including Coumadin, goal INR 2-3. DC heparin gtt once therapeutic.
--- NOTE | 2016-08-31 18:23 | P.PN ---
Subjective Principal diagnosis: Hypoxic/hypercapnic respiratory failure Patient seen and examined. Patient states his breathing is ok today. He gets SOB "on and off." He is coughing but says it is nonproductive. He denies fevers, chills. Objective - Vital Signs Vital signs: Vital Signs Temp 98.5 F 08/31/16 14:59 Pulse 96 08/31/16 15:41 Resp 16 08/31/16 15:41 BP 130/70 08/31/16 14:59 Pulse Ox 92 L 08/31/16 14:59 Intake & Output 08/30/16 08/31/16 08/31/16 18:59 06:59 18:59 Intake Total 340 50 600 Output Total 1665 1100 400 Balance -1325 -1050 200 Weight 147.5 kg Intake: IV 340 200 .9 @ 20 340 200 Intake, IV Titration 100 Amount Cefepime 2 gm In Sodium 100 Chloride 0.9% 50 ml @ 100 mls/hr IVPB Q24HR [facility] Rx #:[id number] Oral 50 300 Output: Urine 1665 1100 400 Other: Voiding Method Indwelling Catheter Indwelling Catheter Indwelling Catheter - Exam Gen.: Alert and oriented Cardiovascular: Irregular rate and rhythm, S1/S2 Lungs: Diminished breath sounds at the bases with scattered crackles Abdomen: Soft nontender nondistended positive bowel sounds Extremities: Cellulitis, chronic venous stasis, edema - Labs CBC & Chem 7: 08/31/16 06:25 08/31/16 06:25 Labs: Abnormal Lab Results - Last 24 Hours (Table) 08/30/16 08/31/16 08/31/16 Range/Units 20:06 06:25 06:25 WBC 14.2 H (3.8-10.6) k/uL RBC 3.86 L (4.30-5.90) m/uL Hgb 11.4 L (13.0-17.5) gm/dL Hct 37.1 L (39.0-53.0) % MCHC 30.9 L (31.0-37.0) g/dL RDW 15.6 H (11.5-15.5) % Neutrophils # 11.2 H (1.3-7.7) k/uL PT (9.0-12.0) sec Chloride 96 L (98-107) mmol/L Carbon Dioxide 33 H (22-30) mmol/L BUN 50 H (9-20) mg/dL Creatinine 2.20 H (0.66-1.25) mg/dL Glucose 105 H (74-99) mg/dL POC Glucose (mg/dL) 153 H (75-99) mg/dL Alkaline Phosphatase 144 H (38-126) U/L Albumin 2.8 L (3.5-5.0) g/dL 08/31/16 08/31/16 08/31/16 Range/Units 07:14 07:33 11:39 WBC (3.8-10.6) k/uL RBC (4.30-5.90) m/uL Hgb (13.0-17.5) gm/dL Hct (39.0-53.0) % MCHC (31.0-37.0) g/dL RDW (11.5-15.5) % Neutrophils # (1.3-7.7) k/uL PT 19.3 H (9.0-12.0) sec Chloride (98-107) mmol/L Carbon Dioxide (22-30) mmol/L BUN (9-20) mg/dL Creatinine (0.66-1.25) mg/dL Glucose (74-99) mg/dL POC Glucose (mg/dL) 110 H 143 H (75-99) mg/dL Alkaline Phosphatase (38-126) U/L Albumin (3.5-5.0) g/dL 08/31/16 Range/Units 17:00 WBC (3.8-10.6) k/uL RBC (4.30-5.90) m/uL Hgb (13.0-17.5) gm/dL Hct (39.0-53.0) % MCHC (31.0-37.0) g/dL RDW (11.5-15.5) % Neutrophils # (1.3-7.7) k/uL PT (9.0-12.0) sec Chloride (98-107) mmol/L Carbon Dioxide (22-30) mmol/L BUN (9-20) mg/dL Creatinine (0.66-1.25) mg/dL Glucose (74-99) mg/dL POC Glucose (mg/dL) 115 H (75-99) mg/dL Alkaline Phosphatase (38-126) U/L Albumin (3.5-5.0) g/dL Assessment and Plan Plan: Acute hypoxic and hypercapnic respiratory failure Acute exacerbation of CHF, diastolic, ejection fraction 60-65% Atrial fibrillation with rapid ventricular response Likely underlying COPD, active tobacco abuse Delirium tremens Coumadin coagulopathy, therapeutic Sepsis Anemia, normochromic normocytic Thrombocytosis Hyperammonemia Lower extremity cellulitis: polymicrobial Diabetic ulcer DM2 Super morbid obesity, concerning for underlying MACO/OHS Toxic metabolic encephalopathy Acute kidney injury on chronic kidney disease Pulmonary hypertension, moderate to severe, RVSP 53 mmHg Peripheral arterial disease Active tobacco abuse Thrush Continue BiPAP PRN and Qhs Diuresis, Lasix decrease to daily Monitor renal function Colace Nystatin Bronchodilators and Pulmicort Antibiotics per ID Wound care Continue GI and DVT Prophylaxis: Protonix, Coumadin Smoking cessation highly recommended, Nicotine TD Consult PT and OT Consult PMR Restart patient's home oral medications, including Coumadin, goal INR 2-[address] chest
[2016-08-31 20:33] LABS: Glucose,Whole Blood 207 mg/dL (75-99)
[2016-08-31] MEDS: FINASTERIDE 5 MG TAB PO SCH (22:21)
[2016-08-31] MEDS: COLLAGENASE 250 UNIT/GM OINTMENT 30 GM TUBE TOPICAL SCH (22:22)
--- NOTE | 2016-08-31 22:43 | P.PN ---
Subjective Principal diagnosis: fever cellulitis 61-year-old male with a long-standing history of diabetes mellitus type 2 poorly controlled as well as coronary artery disease congestive heart failure and chronic lower extremity edema. He was recently hospitalized without evidence of an infection to his left leg and heel. He was seen by vascular surgery has been following the wound center. The patient has been on antibiotic therapy with ciprofloxacin. For the isolated pathogens. The patient relates in the days before coming to hospital he started to feel ill. Increasing weakness. Increasing swelling and redness to the leg. An increasing over the left heel. His was trying to get him to come to the hospital for days before he finally came because he became so weak that he could no longer object. Upon arrival to the emergency center temperature 102.2 was noted. He was also having difficulty with worsening arrhythmia with his atrial fibrillation having a rapid ventricular response. He has been seen by cardiology. And there is been improvement of his uncontrolled rhythm. He still feels poorly. He's had fever which is feeling slightly better at this time still has chills. Is concerned about the ongoing ulceration to his left heel. He relates that he has not been offloading it. He can't wear any shoes causes his legs are so swollen. Spends his time in a lazy- boy recliner when he is at home. His had a further decline of his status. He was transferred to the intensive care unit. He had BiPAP in place for worsening respiratory status. The patient became somewhat uncooperative and somnolent. And as noted the patient' s related that he was a heavy drinker. He is on the CIWA protocol and Ativan is being weaned. He is showing improvement Patient has had a mild improvement today. He is less sedated. He is currently off of BiPAP. He has an high flow oxygen. Seems to be comfortable and now mentation has improved, recognized me by name. Bone scan in progress Objective - Vital Signs Vital signs: Vital Signs Temp 98.3 F 08/31/16 20:35 Pulse 96 08/31/16 21:01 Resp 16 08/31/16 20:35 BP 137/74 08/31/16 20:35 Pulse Ox 93 L 08/31/16 20:35 Intake & Output 08/31/16 08/31/16 09/01/16 06:59 18:59 06:59 Intake Total 50 600 Output Total 1100 400 525 Balance -1050 200 -525 Intake: IV 200 .9 @ 20 200 Intake, IV Titration 100 Amount Cefepime 2 gm In Sodium 100 Chloride 0.9% 50 ml @ 100 mls/hr IVPB Q24HR [facility] Rx #:[id number] Oral 50 300 Output: Urine 1100 400 525 Uretheral (Harris) 525 Other: Voiding Method Indwelling Catheter Indwelling Catheter - Exam 61 year-old male who suffers from obesity. Remains in the intensive care unit. He is currently on high flow oxygen not BiPAP. HEENT: Anicteric conjunctiva are pink and moist nasal mucosa grossly intact without significant lesions, there is no thrush. Dentition is warm for age. Neck: The neck is supple without significant lymphadenopathy or thyromegaly. Lungs: Symmetrical air entry is noted with evidence of extra wheezes that are scattered. No julian bronchial sounds were noted. No egophony or dullness. Heart: Irregular with an audible S1 and S2, no S3 soft S4, no new murmur click or rub. Abdomen: Obese, Positive bowel sounds soft and nontender without palpable masses or organomegaly. There was no guarding or rebound. Evidence of the prior abdominal surgeries noted. At the most superior aspect of the surgical incision is evidence of some hyper-granulation tissue. At the base of the hyperventilation tissue is exposed mesh. Extremities: There is bilateral lower extremity edema. There some erythema to both lower extremities. Much more prominent on the right lower extremity from the knee distally. There is evidence of the significant ulceration to the heel that measures at 7.1 x 5.2 x 0.3 cm. Neuro:He is sitting in the specialty chair. Does open eyes. Seems to recognize his . Not agitated more comfortable and some speech is intelligible. - Labs CBC & Chem 7: 08/31/16 06:25 08/31/16 06:25 Labs: Abnormal Lab Results - Last 24 Hours (Table) 08/31/16 08/31/16 08/31/16 Range/Units 06:25 06:25 07:14 WBC 14.2 H (3.8-10.6) k/uL RBC 3.86 L (4.30-5.90) m/uL Hgb 11.4 L (13.0-17.5) gm/dL Hct 37.1 L (39.0-53.0) % MCHC 30.9 L (31.0-37.0) g/dL RDW 15.6 H (11.5-15.5) % Neutrophils # 11.2 H (1.3-7.7) k/uL PT (9.0-12.0) sec Chloride 96 L (98-107) mmol/L Carbon Dioxide 33 H (22-30) mmol/L BUN 50 H (9-20) mg/dL Creatinine 2.20 H (0.66-1.25) mg/dL Glucose 105 H (74-99) mg/dL POC Glucose (mg/dL) 110 H (75-99) mg/dL Alkaline Phosphatase 144 H (38-126) U/L Albumin 2.8 L (3.5-5.0) g/dL 08/31/16 08/31/16 08/31/16 Range/Units 07:33 11:39 17:00 WBC (3.8-10.6) k/uL RBC (4.30-5.90) m/uL Hgb (13.0-17.5) gm/dL Hct (39.0-53.0) % MCHC (31.0-37.0) g/dL RDW (11.5-15.5) % Neutrophils # (1.3-7.7) k/uL PT 19.3 H (9.0-12.0) sec Chloride (98-107) mmol/L Carbon Dioxide (22-30) mmol/L BUN (9-20) mg/dL Creatinine (0.66-1.25) mg/dL Glucose (74-99) mg/dL POC Glucose (mg/dL) 143 H 115 H (75-99) mg/dL Alkaline Phosphatase (38-126) U/L Albumin (3.5-5.0) g/dL 08/31/16 Range/Units 20:32 WBC (3.8-10.6) k/uL RBC (4.30-5.90) m/uL Hgb (13.0-17.5) gm/dL Hct (39.0-53.0) % MCHC (31.0-37.0) g/dL RDW (11.5-15.5) % Neutrophils # (1.3-7.7) k/uL PT (9.0-12.0) sec Chloride (98-107) mmol/L Carbon Dioxide (22-30) mmol/L BUN (9-20) mg/dL Creatinine (0.66-1.25) mg/dL Glucose (74-99) mg/dL POC Glucose (mg/dL) 207 H (75-99) mg/dL Alkaline Phosphatase (38-126) U/L Albumin (3.5-5.0) g/dL Laboratory Results WBC 14.2 k/uL (3.8-10.6) H 08/31/16 06:25 RBC 3.86 m/uL (4.30-5.90) L 08/31/16 06:25 Hgb 11.4 gm/dL (13.0-17.5) L 08/31/16 06:25 Hct 37.1 % (39.0-53.0) L 08/31/16 06:25 MCV 95.9 fL (80.0-100.0) 08/31/16 06:25 MCH 29.6 pg (25.0-35.0) 08/31/16 06:25 MCHC 30.9 g/dL (31.0-37.0) L 08/31/16 06:25 RDW 15.6 % (11.5-15.5) H 08/31/16 06:25 Plt Count 338 k/uL (150-450) 08/31/16 06:25 Neutrophils % 79 % 08/31/16 06:25 Lymphocytes % 8 % 08/31/16 06:25 Monocytes % 7 % 08/31/16 06:25 Eosinophils % 3 % 08/31/16 06:25 Basophils % 1 % 08/31/16 06:25 Neutrophils # 11.2 k/uL (1.3-7.7) H 08/31/16 06:25 Lymphocytes # 1.1 k/uL (1.0-4.8) 08/31/16 06:25 Monocytes # 1.0 k/uL (0-1.0) 08/31/16 06:25 Eosinophils # 0.4 k/uL (0-0.7) 08/31/16 06:25 Basophils # 0.1 k/uL (0-0.2) 08/31/16 06:25 Manual Slide Review Performed 08/19/16 07:30 Hypochromasia Moderate 08/31/16 06:25 Poikilocytosis Slight 08/28/16 04:13 Macrocytosis Slight 08/27/16 05:00 PT 19.3 sec (9.0-12.0) H 08/31/16 07:33 INR 2.0 (<1.1) 08/31/16 07:33 APTT 31.4 sec (22.0-30.0) H 08/30/16 05:29 Sample Site rrad 08/23/16 09:48 ABG pH 7.35 (7.35-7.45) 08/23/16 09:48 ABG pCO2 55 mmHg (35-45) H 08/23/16 09:48 ABG pO2 92 mmHg (83-108) 08/23/16 09:48 ABG HCO3 30 mmol/L (21-25) H 08/23/16 09:48 ABG Total CO2 31 mmol/L (19-24) H 08/23/16 09:48 ABG O2 Saturation 97.0 % (94-97) 08/23/16 09:48 ABG Base Excess 4.3 mmol/L 08/23/16 09:48 FiO2 40 % 08/23/16 09:48 Sodium 138 mmol/L (137-145) 08/31/16 06:25 Potassium 4.1 mmol/L (3.5-5.1) 08/31/16 06:25 Chloride 96 mmol/L (98-107) L 08/31/16 06:25 Carbon Dioxide 33 mmol/L (22-30) H 08/31/16 06:25 Anion Gap 9 mmol/L 08/31/16 06:25 BUN 50 mg/dL (9-20) H 08/31/16 06:25 Creatinine 2.20 mg/dL (0.66-1.25) H 08/31/16 06:25 Est GFR (MDRD) Af Amer 37 (>60 ml/min/1.73 sqM) 08/31/16 06:25 Est GFR (MDRD) Non-Af 31 (>60 ml/min/1.73 sqM) 08/31/16 06:25 Glucose 105 mg/dL (74-99) H 08/31/16 06:25 POC Glucose (mg/dL) 207 mg/dL (75-99) H 08/31/16 20:32 POC Glu Data Collection Specialist ID Shelby Yu 08/31/16 20:[address] Glu mg/dL 134 mg/dL 08/23/16 09:48 Hemoglobin A1c 6.3 % (4.2-6.1) H 08/23/16 09:48 Plasma Lactic Acid Cristiano 1.1 mmol/L (0.7-2.0) 08/20/16 03:09 Calcium 8.7 mg/dL (8.4-10.2) 08/31/16 06:25 Ionized Calcium Mara 5.0 mg/dL (4.5-5.3) 08/24/16 05:38 Phosphorus 3.8 mg/dL (2.5-4.5) 08/31/16 06:25 Magnesium 1.9 mg/dL (1.6-2.3) 08/31/16 06:25 Total Bilirubin 1.3 mg/dL (0.2-1.3) 08/31/16 06:25 AST 37 U/L (17-59) 08/31/16 06:25 ALT 29 U/L (21-72) 08/31/16 06:25 Alkaline Phosphatase 144 U/L (38-126) H 08/31/16 06:25 Ammonia 23 umol/L (<30) 08/27/16 05:00 Total Creatine Kinase 209 U/L (55-170) H 08/15/16 11:54 CK-MB (CK-2) 2.9 ng/mL (0.0-2.4) H* 08/15/16 11:54 CK-MB (CK-2) Rel Index 1.4 08/15/16 11:54 Troponin I 0.201 ng/mL (0.000-0.034) H* 08/15/16 11:54 NT-Pro-B Natriuret Pep 7750 pg/mL 08/20/16 03:09 Total Protein 6.3 g/dL (6.3-8.2) 08/31/16 06:25 Albumin 2.8 g/dL (3.5-5.0) L 08/31/16 06:25 Triglycerides 203 mg/dL (<150) H 08/23/16 09:48 TSH 2.480 mIU/L (0.465-4.680) 08/20/16 04:00 Urine Color Yellow 08/29/16 12:55 Urine Appearance Turbid (Clear) 08/29/16 12:55 Urine pH 6.0 (5.0-8.0) 08/29/16 12:55 Ur Specific [place] 1.011 (1.001-1.035) 08/29/16 12:55 Urine Protein 1+ (Negative) H 08/29/16 12:55 Urine Glucose (UA) Negative (Negative) 08/29/16 12:55 Urine Ketones Negative (Negative) 08/29/16 12:55 Urine Blood Moderate (Negative) H 08/29/16 12:55 Urine Nitrite Negative (Negative) 08/29/16 12:55 Urine Bilirubin Negative (Negative) 08/29/16 12:55 Urine Urobilinogen <2.0 mg/dL (<2.0) 08/29/16 12:55 Ur Leukocyte Esterase Large (Negative) H 08/29/16 12:55 Urine RBC >182 /hpf (0-5) H 08/29/16 12:55 Urine WBC >182 /hpf (0-5) H 08/29/16 12:55 Urine WBC Clumps Many /hpf (None) H 08/29/16 12:55 Ur Squamous Epith Cells 3 /hpf (0-4) 08/20/16 04:20 Amorphous Sediment Rare /hpf (None) H 08/20/16 04:20 Urine Bacteria Rare /hpf (None) H 08/29/16 12:55 Hyaline Casts 8 /lpf (0-2) H 08/15/16 00:40 Urine Mucus Rare /hpf (None) H 08/29/16 12:55 Urine Yeast (Budding) Many /hpf (None) H 08/29/16 12:55 Vancomycin Trough 31.1 ug/mL H* 08/17/16 23:00 Random Vancomycin 17.0 ug/mL 08/20/16 04:00 Microbiology 08/20/16 14:50 Blood Blood Culture - Final No Growth after 144 hours 08/19/16 11:30 Heel - Right Gram Stain - Final 08/19/16 11:30 Heel - Right Wound Culture - Final Citrobacter freundii Enterococcus faecalis VRE Radhika albicans 08/20/16 04:20 Urine,Catheterized Urine Culture - Final 08/15/16 00:40 Blood Blood Culture - Final No Growth after 144 hours 08/15/16 00:40 Urine,Voided Urine Culture - Final Assessment and Plan (1) Sepsis Narrative/Plan: 61-year-old male who has a history of multiple medical troubles that includes diabetes obesity coronary artery disease and atrial fibrillation. Presents to Hospital feeling very poorly. He had worsening cardiac dysrhythmia his atrial fibrillation and developed a rapid ventricular response. Became weak and ill and constantly remitted to coming to hospital. He is having difficulty with worsening ulceration to his heel. It was noted during his last hospital stay. And is to be getting ongoing care at the wound healing Center. During the last stay it was a goal to have him go to extended care however he refused. And then with therapy he was proving that he was able to get up and move a bit. Despite this he has not been doing well at home. He's been getting worse. He now has marked worsening infection to the right leg. Prior culture shows evidence of MRSA, klebsiella and Proteus infection. Constantly vancomycin and ceftriaxone were given for now until we have further data. Avoid Levaquin use since he is on Coumadin. Patient is chronic medical noncompliance. He has hemoglobin A1c was down to 6.1 Patient has been having difficulties with offloading the heel. A brown air boot is been requested to get up and off the bed at this time. We'll need to have a specialty boot designed the time of his discharge to take weight off of the heel. He will follow the wound healing Center. He' will continue follow- up with the vascular surgeon. Local wound care with Santyl will be utilized given large amount of necrotic material, may need surgical debridement Pain control is improved Atrial fibrillation is controlled. Continues to have leukocytosis but improving with current wound care and antibiotic therapy Creatinine is increased. Ketorolac was discontinued and being monitored. Creatinine remains at 1.6 Was receiving vancomycin therapy. However when the VRE that was isolated this was altered to daptomycin. Wound culture with gram-negative bacilli. Patient does have a remote history of pseudomonal infection. As well as of MRSA. cefepime given the current culture results. Respiratory failure has improved and It has been discussed with his the possibility of a DO NOT RESUSCITATE order. She does not believe she is quite ready. We discussed that her has not taken good care of himself. In no appears to have chronic respiratory failure there is BiPAP dependent. If he does not improve he may require tracheostomy and chronic ventilator placement. Fortunately has had an improvement in his status today. The issue is less pressing. However DO NOT RESUSCITATE order is still appropriate. She will discuss this with her son. Will eventually transfer to ECF needs to complete a course of antibiotics. will evaluate the heel now that he is more stable. bone scan in progress Status: Acute (2) Diabetic ulcer of right heel associated with diabetes mellitus due to underlying condition, with fat layer exposed Status: Acute (3) Leukocytosis Status: Acute (4) Afib Status: Acute
[2016-08-31] MEDS: QUEtiapine 25 MG TAB PO SCH (22:44)
[2016-09-01 06:59] LABS: INR 2.6 (<1.1); Prothrombin Time 24.8 sec (9.0-12.0)
[2016-09-01 07:06] LABS: Calcium 8.2 mg/dL (8.4-10.2); Magnesium 1.8 mg/dL (1.6-2.3); Potassium 3.6 mmol/L (3.5-5.1)
[2016-09-01] MEDS: LEVALBUTEROL NEB 1.25 MG/3 ML AMP INHALATION SCH ×4 (07:14→20:36)
[2016-09-01] MEDS: BUDESONIDE 0.5 MG/2 ML NEBU INHALATION SCH ×2 (07:14→20:36)
[2016-09-01] MEDS: INSULIN LISPRO (humaLOG) 300 UNIT/3 ML VIAL SQ SCH ×5 (07:32→22:23)
[2016-09-01 07:38] VITALS: RESP 18
[2016-09-01 07:41] LABS: Glucose,Whole Blood 108 mg/dL (75-99)
[2016-09-01] MEDS: GABAPENTIN 300 MG CAP PO SCH ×2 (07:51→22:52)
[2016-09-01] MEDS: TAMSULOSIN 0.4 MG CAP.ER.24H PO SCH (07:52)
[2016-09-01] MEDS: NYSTATIN 100,000 UNIT/ML SUSP 500,000 UNIT/5 ML CUP PO SCH ×4 (07:52→22:53)
[2016-09-01] MEDS: traMADol 50 MG TAB PO SCH ×3 (07:52→22:53)
[2016-09-01] MEDS: DILTIAZEM ORAL 60 MG TAB PO SCH ×4 (07:52→22:52)
[2016-09-01] MEDS: FUROSEMIDE 10 MG/ML 4 ML VIAL IV SCH (07:53)
[2016-09-01] MEDS: DOCUSATE 100 MG CAP PO SCH (07:53)
[2016-09-01] MEDS: FENOFIBRATE 160 MG TAB PO SCH (07:53)
[2016-09-01] MEDS: THIAMINE 100 MG TAB PO SCH ×2 (07:53→22:53)
[2016-09-01] MEDS: CEFEPIME 2 GM in SODIUM CHLORIDE 0.9% 50 ML IVPB SCH (07:54)
[2016-09-01] MEDS: NICOTINE 21MG/24HR PATCH TRANSDERM SCH (07:54)
[2016-09-01] MEDS: INSULIN GLARGINE 100 UNIT/ML 10 ML VIAL SQ SCH (07:55)
[2016-09-01] MEDS: PANTOPRAZOLE 40 MG/10 ML VIAL IVP SCH (08:00)
--- NOTE | 2016-09-01 08:22 | P.DS ---
Providers Date of admission: 08/15/16 04:39 Attending physician: Kamari Franks Consults: 08/15/16 02:58 Consult Physician Stat Consulting Provider: Rafita Kaur Consult Reason/Comments: leg wounds, sepsis Do you want consulting provider notified?: Yes, Notify in am Consult Physician Stat Consulting Provider: Destiny Lopez Consult Reason/Comments: elevated troponin Do you want consulting provider notified?: Yes, Notify in am 08/20/16 04:54 Consult Physician Stat Consulting Provider: Tejal Mark Consult Reason/Comments: ICU Management Do you want consulting provider notified?: Yes 08/26/16 15:08 Consult Physician Routine Consulting Provider: Carolyn Lane Consult Reason/Comments: AMS Do you want consulting provider notified?: Already Contacted Primary care physician: Stated None - Discharge Diagnosis(es) (1) Open wound of both legs with complication Current Visit: Yes Status: Acute (2) Cellulitis of left lower extremity Current Visit: No Status: Acute (3) Cellulitis of right leg Current Visit: No Status: Acute (4) Illiterate Current Visit: No Status: Acute (5) Smoking Current Visit: No Status: Acute Hospital Course: This is a discharge/transfer summary a 61-year-old white male essentially admitted for cellulitis with sepsis. The patient had significant worsening of his mentation during this hospitalization as regards to lower extremity sepsis. The patient has history of diabetic foot although his readings fairly well- controlled. His hygiene is quite poor at home and he has had problems with circulation in the left lower extremity as far as insufficiency. The patient was admitted and placed on antibiotics but had a significant decline and had significant mental status changes requiring ICU transfer. The patient after bout a week did recover and [facility] Bone scan does show also myelitis. I will defer antibiotic treatment for about 6 weeks with PICC line to Dr. Kaur. However, today the patient is discharged in stable condition to follow-up with me in approximately one to 2 weeks. Patient Condition at Discharge: Fair Plan - Discharge Summary New Discharge Prescriptions: RX: DAPTOmycin [Cubicin] 500 mg IV Q24H #42 vial RX: traMADol HCl [Ultram] 50 mg PO TID #90 tab Discharge Medication List RX: Fenofibrate Nanocrystallized [Tricor] 145 mg PO DAILY 07/27/16 [History] RX: Finasteride [Proscar] 5 mg PO HS 07/27/16 [History] RX: Gabapentin [Neurontin] 300 mg PO BID 07/27/16 [History] RX: Metoprolol Tartrate [Lopressor] 100 mg PO BID 07/27/16 [History] RX: Niacin [Niacin ER] 500 mg PO DAILY 07/27/16 [History] RX: Tamsulosin HCl [Flomax] 0.4 mg PO QAM 07/27/16 [History] RX: Allopurinol [Zyloprim] 100 mg PO DAILY 08/15/16 [History] RX: Furosemide [Lasix] 40 mg PO BID 08/15/16 [History] RX: Gabapentin [Neurontin] 100 mg PO BID 08/15/16 [History] RX: Spironolactone [Aldactone] 25 mg PO DAILY 08/15/16 [History] RX: Warfarin [Coumadin] 1.25 mg PO DAILY 08/15/16 [History] RX: buPROPion HCL [Wellbutrin XL] 300 mg PO DAILY 08/15/16 [History] RX: Acetaminophen Tab [Tylenol] 1,000 mg PO Q6HR PRN tab 09/01/16 [Rx] RX: Collagenase [Santyl] 1 applic TOPICAL HS dose 09/01/16 [Rx] RX: Cyanocobalamin [Vitamin B-12] 1,000 mcg PO DAILY@1200 tab 09/01/16 [Rx] RX: DAPTOmycin [Cubicin] 500 mg IV Q24H #42 vial 09/01/16 [Rx] RX: Diltiazem Oral [Cardizem*] 60 mg PO QID tab 09/01/16 [Rx] RX: Insulin Glargine [Lantus] 25 unit SQ DAILY vial 09/01/16 [Rx] RX: Nicotine 21Mg/24Hr Patch [Habitrol] 1 patch TRANSDERM DAILY patch 09/01/16 [Rx] RX: Nystatin 100,000 Unit/ml Susp [Mycostatin Oral Susp] 500,000 unit PO QID dose 09/01/16 [Rx] RX: Pantoprazole [Protonix] 40 mg PO DAILY tab 09/01/16 [Rx] RX: QUEtiapine [SEROquel] 25 mg PO HS tab 09/01/16 [Rx] RX: Thiamine [Vitamin B-1] 100 mg PO BID tab 09/01/16 [Rx] RX: Warfarin [Coumadin] 1.25 mg PO DAILY@1800 tab 09/01/16 [Rx] RX: traMADol HCl [Ultram] 50 mg PO TID #90 tab 09/01/16 [Rx] Follow up Appointment(s)/Referral(s): [facility], [NON-STAFF] - None,Stated [Primary Care Provider] - 2 Weeks Kamari Franks MD [STAFF PHYSICIAN] - 1 Week Discharge Disposition: TRANSFER TO SNF/ECF
[2016-09-01] MEDS: SODIUM CHLORIDE 0.9% 1,000 ML IV SCH (10:35)
--- NOTE | 2016-09-01 10:55 | CDI ---
In responding to this query, please exercise your independent professional judgment. The [facility] Coding Staff and Clinical Documentation Specialists appreciate your assistance in clarifying documentation, maintaining compliance with coding guidelines, accurately documenting patients condition and capturing severity of illness. The fact that a question is asked does not imply that any particular answer is desired or expected. Communication forms are a method of clarifying documentation and are not made part of the Legal Health Record. Thank you in advance for your clarification. Last Revision, February 2015 Roman Rhoades [address] [place] [address] Documentation Clarification Form Date: 09/01/2016 10:26:00 AM From: Patricia Bob RN, CCDS Admit Date: 08/15/2016 4:39:00 AM Patient Name: Brandon Nunez Visit Number: [id number] Dr. Mark History/Risk Factors: Acute on chronic hypoxic and hypercapnic respiratory failure, COPD, CHF, Delirium tremens, Metabolic Encephalopathy, Sepsis Clinical Indicators: 08/27 Neurology: "Patient's confusion is likely due to his current pneumonia and wound infections." 08/22 Pulmonary: "Hypercapnic hypoxic respiratory failure bilateral pneumonia and pleural effusion, being monitored and observed with restrained for ETOH withdrawal and DTs. Patient continued to be intermittently agitated. He is awake though but does require soft wrist restraints. Patient has an extensive cellulitis and sepsis associated with that along with bilateral pneumonia. The patient is a high-risk for oral feeding for aspiration-related complication. In addition to that, patient continues to require the BiPAP machine." WBC: 19.2/14.5/19.6/12.4 Left shift: 17.3/9.6 CXR: Developing pneumonia e perihilar region, cardiomegly 08/31 Pulmonary Lung/Breathing assessment: "Lungs: Diminished breath sounds at the bases with scattered crackles." Treatment: Antibiotics: Iv Vanco PTD, IV Daptomycin 500 IVPB Q 24 hrs, Iv Cefapime 2gm IVPB Q 24 hrs, previously on IV Rocephin 2gm IVPB Q 24 hrs O2: room air, to 2L to BIPAP Breathing TX: Xopenex and Pulmicort In order to capture the severity of condition, please clarify if the condition signifies and you are treating for: Aspiration Pneumonia, identify if: Due to solids or liquids Bacterial Pneumonia, specify causal organism (if known) Gram Negative Pneumonia Due to Strep Due to Staph Due to E. coli Other bacteria (specify) Viral Pneumonia, specify casual organism (if known) Ventilator Associated Pneumonia Healthcare Acquired Pneumonia/Pneumonia, unspecified Unable to determine Link any associated conditions to the pneumonia: Influenza with secondary gram negative pneumonia Sepsis due to pneumonia Acute respiratory failure due to pneumonia Other, please specify Please document in your progress notes and discharge summary in order to capture severity of illness and risk of mortality. Include clinical findings that support your diagnosis. FYI: Press F11 to launch patient chart. Place X here if this finding has no clinical significance, is not applicable or if you are not able to provide any additional documentation. MENA
[2016-09-01 11:20] LABS: Glucose,Whole Blood 133 mg/dL (75-99)
[2016-09-01] MEDS: PANTOPRAZOLE 40 MG TABLET PO SCH (11:50)
[2016-09-01] MEDS: CYANOCOBALAMIN 500 MCG TAB PO SCH (11:53)
[2016-09-01] MEDS: DAPTOmycin 500 MG in SODIUM CHLORIDE 0.9% 50 ML IV SCH (15:55)
[2016-09-01 17:18] LABS: Glucose,Whole Blood 146 mg/dL (75-99)
[2016-09-01] MEDS: WARFARIN 1.25 MG TAB PO SCH (17:51)
--- NOTE | 2016-09-01 19:27 | PN ---
DATE OF SERVICE: 09/01/2016 HISTORY OF PRESENT ILLNESS: The patient is a 61-year-old male who initially came in with problems with acute hypoxia with cellulitis with diabetic ulcer. He was found to have problems with sepsis. He became more short of breath and was found also to have atrial fibrillation with a rapid ventricular response. He was put on BiPAP at that time and Cardizem drip. Subsequently he has been transferred out of ICU. He is on the fifth floor waiting for transfer to either a long-term acute facility or extended-care facility. He has been doing relatively well, he states. He is considerably improved since his admission. He still wears BiPAP at night. He has occasional cough, mostly nonproductive. He denies any nausea, vomiting or diarrhea, at this time. On physical examination, vital signs show temperature of 97.8, heart rate 90, respiratory rate 18, blood pressure 129/76, oxygen saturation 92% on 3 L. LABS: PT 24.8, INR 2.6. Sodium is 141, potassium 3.6, chloride 100, carbon dioxide 32. BUN 48, creatinine 2.2. Glucose 119. Calcium 8.2. Phosphorus 4. Magnesium 1.8. He did have a right heel wound showing Citrobacter freundii, Enterococcus faecalis, VRE and Radhika albicans. No growth in blood culture. GENERAL: Patient is a 61-year-old male who appears in no acute respiratory distress. HEENT: Pupils are reactive, mucous membranes moist. NECK: Short, supple, thick. LUNGS: Sounds are diminished throughout. CARDIOVASCULAR: S1, S2 heard, irregular. ABDOMEN: Soft. Bowel sounds heard. EXTREMITIES: He has chronic venostasis discoloration, positive edema with cellulitis. Legs are wrapped. NEUROLOGIC: He is awake, alert. IMPRESSION: 1. Acute hypoxic and hypercapnic respiratory failure on admission. 2. Acute exacerbation of diastolic congestive heart failure with an ejection fraction of 60% to 65%. 3. Atrial fibrillation with a rapid ventricular response. 4. Suspect chronic obstructive pulmonary disease. 5. Delirium tremens, gone. 6. Sepsis, improved. 7. Anemia, normochromic, normocytic. 8. Thrombocytosis. 9. Lower extremity cellulitis. 10. Diabetic ulcer with VRE 11. Diabetes mellitus, type 2. 12. Obstructive sleep apnea with OHS. 13. Toxic metabolic encephalopathy, improved. 14. Acute kidney injury with chronic kidney disease. 15. Pulmonary hypertension, moderate to severe, with RVSP of 53 mmHg. 16. Peripheral arterial disease. 17. Thrush, improved. 18. Active tobacco abuse. Plans are for patient to potentially be transferred to [id number] facility versus ECF where he will continue with BiPAP whenever sleeping. Continue with medications as ordered. Continue with pulmonary hygiene. Continue with GI and DVT prophylaxis. Continue with smoking cessation; he states that his intentions are to continue to quit smoking and be able to walk to get the mail. Continue with PT/OT. Continue with oxygen as needed to keep saturations 92% or better. MTDD
[2016-09-01 20:37] LABS: Glucose,Whole Blood 110 mg/dL (75-99)
--- NOTE | 2016-09-01 21:44 | P.PN ---
Subjective Principal diagnosis: fever cellulitis 61-year-old male with a long-standing history of diabetes mellitus type 2 poorly controlled as well as coronary artery disease congestive heart failure and chronic lower extremity edema. He was recently hospitalized without evidence of an infection to his left leg and heel. He was seen by vascular surgery has been following the wound center. The patient has been on antibiotic therapy with ciprofloxacin. For the isolated pathogens. The patient relates in the days before coming to hospital he started to feel ill. Increasing weakness. Increasing swelling and redness to the leg. An increasing over the left heel. His was trying to get him to come to the hospital for days before he finally came because he became so weak that he could no longer object. Upon arrival to the emergency center temperature 102.2 was noted. He was also having difficulty with worsening arrhythmia with his atrial fibrillation having a rapid ventricular response. He has been seen by cardiology. And there is been improvement of his uncontrolled rhythm. He still feels poorly. He's had fever which is feeling slightly better at this time still has chills. Is concerned about the ongoing ulceration to his left heel. He relates that he has not been offloading it. He can't wear any shoes causes his legs are so swollen. Spends his time in a lazy- boy recliner when he is at home. His had a further decline of his status. He was transferred to the intensive care unit. He had BiPAP in place for worsening respiratory status. The patient became somewhat uncooperative and somnolent. And as noted the patient' s related that he was a heavy drinker. He is on the CIWA protocol and Ativan is being weaned. He is showing improvement Patient has had a mild improvement today. He is less sedated. He is currently off of BiPAP. He has an high flow oxygen. Seems to be comfortable and now mentation has improved, recognized me by name. Bone scan reveals evidence of osteomyelitis to the heel. Objective - Vital Signs Vital signs: Vital Signs Temp 97.6 F 09/01/16 15:00 Pulse 86 09/01/16 20:46 Resp 18 09/01/16 16:00 BP 102/56 09/01/16 15:00 Pulse Ox 91 L 09/01/16 15:00 Intake & Output 09/01/16 09/01/16 09/02/16 06:59 18:59 06:59 Intake Total 200 Output Total 825 150 Balance -625 -150 Weight 147.5 kg Intake: IV 200 .9 @ 20 200 Output: Urine 825 150 Uretheral (Harris) 525 Other: Voiding Method Indwelling Catheter Indwelling Catheter - Exam 61 year-old male who suffers from obesity. Remains in the intensive care unit. He is currently on high flow oxygen not BiPAP. HEENT: Anicteric conjunctiva are pink and moist nasal mucosa grossly intact without significant lesions, there is no thrush. Dentition is warm for age. Neck: The neck is supple without significant lymphadenopathy or thyromegaly. Lungs: Symmetrical air entry is noted with evidence of extra wheezes that are scattered. No julian bronchial sounds were noted. No egophony or dullness. Heart: Irregular with an audible S1 and S2, no S3 soft S4, no new murmur click or rub. Abdomen: Obese, Positive bowel sounds soft and nontender without palpable masses or organomegaly. There was no guarding or rebound. Evidence of the prior abdominal surgeries noted. At the most superior aspect of the surgical incision is evidence of some hyper-granulation tissue. At the base of the hyperventilation tissue is exposed mesh. Extremities: There is bilateral lower extremity edema. There some erythema to both lower extremities. Much more prominent on the right lower extremity from the knee distally. There is evidence of the significant ulceration to the heel that measures at 7.1 x 5.2 x 0.3 cm. Neuro:He is sitting in the specialty chair. Does open eyes. Seems to recognize his . Not agitated more comfortable and some speech is intelligible. - Labs CBC & Chem 7: 08/31/16 06:25 09/01/16 06:24 Labs: Abnormal Lab Results - Last 24 Hours (Table) 09/01/16 09/01/16 09/01/16 Range/Units 06:24 06:24 07:40 PT 24.8 H (9.0-12.0) sec Carbon Dioxide 32 H (22-30) mmol/L BUN 48 H (9-20) mg/dL Creatinine 2.20 H (0.66-1.25) mg/dL Glucose 119 H (74-99) mg/dL POC Glucose (mg/dL) 108 H (75-99) mg/dL Calcium 8.2 L (8.4-10.2) mg/dL 09/01/16 09/01/16 09/01/16 Range/Units 11:06 17:13 20:26 PT (9.0-12.0) sec Carbon Dioxide (22-30) mmol/L BUN (9-20) mg/dL Creatinine (0.66-1.25) mg/dL Glucose (74-99) mg/dL POC Glucose (mg/dL) 133 H 146 H 110 H (75-99) mg/dL Calcium (8.4-10.2) mg/dL Laboratory Results WBC 14.2 k/uL (3.8-10.6) H 08/31/16 06:25 RBC 3.86 m/uL (4.30-5.90) L 08/31/16 06:25 Hgb 11.4 gm/dL (13.0-17.5) L 08/31/16 06:25 Hct 37.1 % (39.0-53.0) L 08/31/16 06:25 MCV 95.9 fL (80.0-100.0) 08/31/16 06:25 MCH 29.6 pg (25.0-35.0) 08/31/16 06:25 MCHC 30.9 g/dL (31.0-37.0) L 08/31/16 06:25 RDW 15.6 % (11.5-15.5) H 08/31/16 06:25 Plt Count 338 k/uL (150-450) 08/31/16 06:25 Neutrophils % 79 % 08/31/16 06:25 Lymphocytes % 8 % 08/31/16 06:25 Monocytes % 7 % 08/31/16 06:25 Eosinophils % 3 % 08/31/16 06:25 Basophils % 1 % 08/31/16 06:25 Neutrophils # 11.2 k/uL (1.3-7.7) H 08/31/16 06:25 Lymphocytes # 1.1 k/uL (1.0-4.8) 08/31/16 06:25 Monocytes # 1.0 k/uL (0-1.0) 08/31/16 06:25 Eosinophils # 0.4 k/uL (0-0.7) 08/31/16 06:25 Basophils # 0.1 k/uL (0-0.2) 08/31/16 06:25 Manual Slide Review Performed 08/19/16 07:30 Hypochromasia Moderate 08/31/16 06:25 Poikilocytosis Slight 08/28/16 04:13 Macrocytosis Slight 08/27/16 05:00 PT 24.8 sec (9.0-12.0) H 09/01/16 06:24 INR 2.6 (<1.1) 09/01/16 06:24 APTT 31.4 sec (22.0-30.0) H 08/30/16 05:29 Sample Site rrad 08/23/16 09:48 ABG pH 7.35 (7.35-7.45) 08/23/16 09:48 ABG pCO2 55 mmHg (35-45) H 08/23/16 09:48 ABG pO2 92 mmHg (83-108) 08/23/16 09:48 ABG HCO3 30 mmol/L (21-25) H 08/23/16 09:48 ABG Total CO2 31 mmol/L (19-24) H 08/23/16 09:48 ABG O2 Saturation 97.0 % (94-97) 08/23/16 09:48 ABG Base Excess 4.3 mmol/L 08/23/16 09:48 FiO2 40 % 08/23/16 09:48 Sodium 141 mmol/L (137-145) 09/01/16 06:24 Potassium 3.6 mmol/L (3.5-5.1) 09/01/16 06:24 Chloride 100 mmol/L (98-107) 09/01/16 06:24 Carbon Dioxide 32 mmol/L (22-30) H 09/01/16 06:24 Anion Gap 9 mmol/L 09/01/16 06:24 BUN 48 mg/dL (9-20) H 09/01/16 06:24 Creatinine 2.20 mg/dL (0.66-1.25) H 09/01/16 06:24 Est GFR (MDRD) Af Amer 37 (>60 ml/min/1.73 sqM) 09/01/16 06:24 Est GFR (MDRD) Non-Af 31 (>60 ml/min/1.73 sqM) 09/01/16 06:24 Glucose 119 mg/dL (74-99) H 09/01/16 06:24 POC Glucose (mg/dL) 110 mg/dL (75-99) H 09/01/16 20:26 POC Glu Credit Rating Inspector Karin Mercado 09/01/16 20:[address] Glu mg/dL 134 mg/dL 08/23/16 09:48 Hemoglobin A1c 6.3 % (4.2-6.1) H 08/23/16 09:48 Plasma Lactic Acid Cristiano 1.1 mmol/L (0.7-2.0) 08/20/16 03:09 Calcium 8.2 mg/dL (8.4-10.2) L 09/01/16 06:24 Ionized Calcium Mara 5.0 mg/dL (4.5-5.3) 08/24/16 05:38 Phosphorus 4.0 mg/dL (2.5-4.5) 09/01/16 06:24 Magnesium 1.8 mg/dL (1.6-2.3) 09/01/16 06:24 Total Bilirubin 1.3 mg/dL (0.2-1.3) 08/31/16 06:25 AST 37 U/L (17-59) 08/31/16 06:25 ALT 29 U/L (21-72) 08/31/16 06:25 Alkaline Phosphatase 144 U/L (38-126) H 08/31/16 06:25 Ammonia 23 umol/L (<30) 08/27/16 05:00 Total Creatine Kinase 209 U/L (55-170) H 08/15/16 11:54 CK-MB (CK-2) 2.9 ng/mL (0.0-2.4) H* 08/15/16 11:54 CK-MB (CK-2) Rel Index 1.4 08/15/16 11:54 Troponin I 0.201 ng/mL (0.000-0.034) H* 08/15/16 11:54 NT-Pro-B Natriuret Pep 7750 pg/mL 08/20/16 03:09 Total Protein 6.3 g/dL (6.3-8.2) 08/31/16 06:25 Albumin 2.8 g/dL (3.5-5.0) L 08/31/16 06:25 Triglycerides 203 mg/dL (<150) H 08/23/16 09:48 TSH 2.480 mIU/L (0.465-4.680) 08/20/16 04:00 Urine Color Yellow 08/29/16 12:55 Urine Appearance Turbid (Clear) 08/29/16 12:55 Urine pH 6.0 (5.0-8.0) 08/29/16 12:55 Ur Specific [place] 1.011 (1.001-1.035) 08/29/16 12:55 Urine Protein 1+ (Negative) H 08/29/16 12:55 Urine Glucose (UA) Negative (Negative) 08/29/16 12:55 Urine Ketones Negative (Negative) 08/29/16 12:55 Urine Blood Moderate (Negative) H 08/29/16 12:55 Urine Nitrite Negative (Negative) 08/29/16 12:55 Urine Bilirubin Negative (Negative) 08/29/16 12:55 Urine Urobilinogen <2.0 mg/dL (<2.0) 08/29/16 12:55 Ur Leukocyte Esterase Large (Negative) H 08/29/16 12:55 Urine RBC >182 /hpf (0-5) H 08/29/16 12:55 Urine WBC >182 /hpf (0-5) H 08/29/16 12:55 Urine WBC Clumps Many /hpf (None) H 08/29/16 12:55 Ur Squamous Epith Cells 3 /hpf (0-4) 08/20/16 04:20 Amorphous Sediment Rare /hpf (None) H 08/20/16 04:20 Urine Bacteria Rare /hpf (None) H 08/29/16 12:55 Hyaline Casts 8 /lpf (0-2) H 08/15/16 00:40 Urine Mucus Rare /hpf (None) H 08/29/16 12:55 Urine Yeast (Budding) Many /hpf (None) H 08/29/16 12:55 Vancomycin Trough 31.1 ug/mL H* 08/17/16 23:00 Random Vancomycin 17.0 ug/mL 08/20/16 04:00 Microbiology 08/20/16 14:50 Blood Blood Culture - Final No Growth after 144 hours 08/19/16 11:30 Heel - Right Gram Stain - Final 08/19/16 11:30 Heel - Right Wound Culture - Final Citrobacter freundii Enterococcus faecalis VRE Radhika albicans 08/20/16 04:20 Urine,Catheterized Urine Culture - Final 08/15/16 00:40 Blood Blood Culture - Final No Growth after 144 hours 08/15/16 00:40 Urine,Voided Urine Culture - Final Assessment and Plan (1) Sepsis Narrative/Plan: 61-year-old male who has a history of multiple medical troubles that includes diabetes obesity coronary artery disease and atrial fibrillation. Presents to Hospital feeling very poorly. He had worsening cardiac dysrhythmia his atrial fibrillation and developed a rapid ventricular response. Became weak and ill and constantly remitted to coming to hospital. He is having difficulty with worsening ulceration to his heel. It was noted during his last hospital stay. And is to be getting ongoing care at the wound healing Center. During the last stay it was a goal to have him go to extended care however he refused. And then with therapy he was proving that he was able to get up and move a bit. Despite this he has not been doing well at home. He's been getting worse. He now has marked worsening infection to the right leg. Prior culture shows evidence of MRSA, klebsiella and Proteus infection. Constantly vancomycin and ceftriaxone were given for now until we have further data. Avoid Levaquin use since he is on Coumadin. Patient is chronic medical noncompliance. He has hemoglobin A1c was down to 6.1 Patient has been having difficulties with offloading the heel. A brown air boot is been requested to get up and off the bed at this time. We'll need to have a specialty boot designed the time of his discharge to take weight off of the heel. He will follow the wound healing Center. He' will continue follow- up with the vascular surgeon. Local wound care with Santyl will be utilized given large amount of necrotic material, may need surgical debridement Pain control is improved Atrial fibrillation is controlled. Continues to have leukocytosis but improving with current wound care and antibiotic therapy Creatinine is increased. Ketorolac was discontinued and being monitored. Creatinine remains at 1.6 Was receiving vancomycin therapy. However when the VRE that was isolated this was altered to daptomycin. Wound culture with gram-negative bacilli. Patient does have a remote history of pseudomonal infection. As well as of MRSA. cefepime given the current culture results. Respiratory failure has improved and It has been discussed with his the possibility of a DO NOT RESUSCITATE order. She does not believe she is quite ready. We discussed that her has not taken good care of himself. In no appears to have chronic respiratory failure there is BiPAP dependent. If he does not improve he may require tracheostomy and chronic ventilator placement. Fortunately has had an improvement in his status today. The issue is less pressing. However DO NOT RESUSCITATE order is still appropriate. She will discuss this with her son. Bone scan confirms osteomyelitis to the heel. Currently planning a 6 week course of antibiotic therapy with cefepime and daptomycin due to the culture. We'll likely need to go to select specialty due to his wound care needs and complex antibiotic therapy and rehab. 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
[2016-09-01] MEDS: QUEtiapine 25 MG TAB PO SCH (22:52)
[2016-09-01] MEDS: COLLAGENASE 250 UNIT/GM OINTMENT 30 GM TUBE TOPICAL SCH (22:52)
[2016-09-01] MEDS: FINASTERIDE 5 MG TAB PO SCH (22:52)
[2016-09-02 07:29] LABS: Glucose,Whole Blood 92 mg/dL (75-99)
[2016-09-02] MEDS: LEVALBUTEROL NEB 1.25 MG/3 ML AMP INHALATION SCH ×4 (07:50→20:06)
[2016-09-02] MEDS: BUDESONIDE 0.5 MG/2 ML NEBU INHALATION SCH ×2 (07:50→20:06)
[2016-09-02] MEDS: INSULIN LISPRO (humaLOG) 300 UNIT/3 ML VIAL SQ SCH ×4 (08:58→22:36)
[2016-09-02] MEDS: traMADol 50 MG TAB PO SCH ×3 (09:06→22:34)
[2016-09-02] MEDS: DOCUSATE 100 MG CAP PO SCH (09:07)
[2016-09-02] MEDS: CEFEPIME 2 GM in SODIUM CHLORIDE 0.9% 50 ML IVPB SCH (09:07)
[2016-09-02] MEDS: NICOTINE 21MG/24HR PATCH TRANSDERM SCH (09:07)
[2016-09-02] MEDS: GABAPENTIN 300 MG CAP PO SCH ×2 (09:08→22:35)
[2016-09-02] MEDS: FUROSEMIDE 10 MG/ML 4 ML VIAL IV SCH (09:08)
[2016-09-02] MEDS: DILTIAZEM ORAL 60 MG TAB PO SCH ×4 (09:09→22:35)
[2016-09-02] MEDS: FENOFIBRATE 160 MG TAB PO SCH (09:09)
[2016-09-02] MEDS: PANTOPRAZOLE 40 MG TABLET PO SCH (09:09)
[2016-09-02] MEDS: NYSTATIN 100,000 UNIT/ML SUSP 500,000 UNIT/5 ML CUP PO SCH ×4 (09:09→22:35)
[2016-09-02] MEDS: TAMSULOSIN 0.4 MG CAP.ER.24H PO SCH (09:09)
[2016-09-02] MEDS: SODIUM CHLORIDE 0.9% 1,000 ML IV SCH (09:10)
[2016-09-02] MEDS: THIAMINE 100 MG TAB PO SCH ×2 (09:10→22:35)
[2016-09-02] MEDS: INSULIN GLARGINE 100 UNIT/ML 10 ML VIAL SQ SCH (09:32)
[2016-09-02 11:35] LABS: Glucose,Whole Blood 113 mg/dL (75-99)
[2016-09-02 12:35] LABS: INR 2.9 (<1.1); Prothrombin Time 27.7 sec (9.0-12.0)
[2016-09-02] MEDS: CYANOCOBALAMIN 500 MCG TAB PO SCH (13:24)
[2016-09-02] MEDS: DAPTOmycin 500 MG in SODIUM CHLORIDE 0.9% 50 ML IV SCH (15:48)
[2016-09-02 17:29] LABS: Glucose,Whole Blood 90 mg/dL (75-99)
[2016-09-02] MEDS: WARFARIN 1.25 MG TAB PO SCH (17:35)
[2016-09-02 20:24] LABS: Glucose,Whole Blood 132 mg/dL (75-99)
--- NOTE | 2016-09-02 20:51 | PN ---
DATE OF SERVICE: 09/02/2016 HISTORY OF PRESENT ILLNESS: The patient is a 61-year-old male who came in with problems with acute hypoxia and problems with diabetic ulcer with cellulitis and sepsis. He has been wearing BiPAP and the patient is waiting for placement now in [facility]. He states that he has been doing better. He feels that he has improved since admission. He denies any nausea, vomiting, diarrhea or chest pain at this time. He is weak. He will require long-term antibiotic due to positive cultures in his wound. He continues to state that he is going to not smoke, and the risks of continuing to smoke were discussed with patient. On physical examination, vital signs show temperature of 97.9, heart rate 80, respiratory rate 18, blood pressure 129/68, oxygen saturation on 3 L 95%. Glucose 92. Blood cultures have had no growth. GENERAL: He is a 61-year-old male in no apparent distress at this time. HEENT: Pupils are reactive, mucous membranes slightly dry. NECK: Short, supple, thick. LUNGS: Sounds are diminished throughout. CARDIOVASCULAR: S1, S2 heard; irregular. ABDOMEN: Soft. Bowel sounds present. EXTREMITIES: He has chronic venostasis, discoloration, cellulitis. Legs are wrapped. About 1+ edema. NEUROLOGIC: He is awake, alert. IMPRESSION: 1. Acute hypoxic and hypercapnic respiratory failure on admission, improved. 2. Acute exacerbation of diastolic congestive heart failure with an ejection fraction of 60% to 65%. 3. Atrial fibrillation with a rapid ventricular response, improved. 4. Chronic obstructive pulmonary disease. 5. Sepsis, improved. 6. Anemia, normocytic, normochromic. 7. Thrombocytosis. 8. Lower extremity cellulitis. 9. Diabetic ulcer with vancomycin-resistant Enterococcus. 10. Diabetes mellitus, type 2. 11. Obstructive sleep apnea with OHS. 12. Toxic metabolic encephalopathy, improved. 13. Acute kidney injury with chronic kidney disease. 14. Pulmonary hypertension, moderate to severe, with RVSP of 53 mmHg. 15. Peripheral artery disease. 16. Thrush. 17. Active tobacco abuse. Plans are for patient to be transferred to extended-care facility for continued antibiotic therapy and to continue to wear a CPAP or BiPAP whenever sleeping. Continue with medications as ordered. Continue definitely with pulmonary hygiene. Continue with GI and DVT prophylaxis. Continue with smoking cessation. Continue with PT/OT and titrate oxygen to keep saturations 92% or better. Increase activity as tolerated. MTDD
--- NOTE | 2016-09-02 21:07 | P.PN ---
Subjective Principal diagnosis: fever cellulitis 61-year-old male with a long-standing history of diabetes mellitus type 2 poorly controlled as well as coronary artery disease congestive heart failure and chronic lower extremity edema. He was recently hospitalized without evidence of an infection to his left leg and heel. He was seen by vascular surgery has been following the wound center. The patient has been on antibiotic therapy with ciprofloxacin. For the isolated pathogens. The patient relates in the days before coming to hospital he started to feel ill. Increasing weakness. Increasing swelling and redness to the leg. An increasing over the left heel. His was trying to get him to come to the hospital for days before he finally came because he became so weak that he could no longer object. Upon arrival to the emergency center temperature 102.2 was noted. He was also having difficulty with worsening arrhythmia with his atrial fibrillation having a rapid ventricular response. He has been seen by cardiology. And there is been improvement of his uncontrolled rhythm. He still feels poorly. He's had fever which is feeling slightly better at this time still has chills. Is concerned about the ongoing ulceration to his left heel. He relates that he has not been offloading it. He can't wear any shoes causes his legs are so swollen. Spends his time in a lazy- boy recliner when he is at home. His had a further decline of his status. He was transferred to the intensive care unit. He had BiPAP in place for worsening respiratory status. The patient became somewhat uncooperative and somnolent. And as noted the patient' s related that he was a heavy drinker. He is on the CIWA protocol and Ativan is being weaned. He is showing improvement Patient has had a mild improvement today. He is less sedated. He is currently off of BiPAP. He has an high flow oxygen. Seems to be comfortable and now mentation has improved, recognized me by name. Bone scan reveals evidence of osteomyelitis to the heel. Objective - Vital Signs Vital signs: Vital Signs Temp 98.2 F 09/02/16 15:00 Pulse 93 09/02/16 15:00 Resp 18 09/02/16 15:00 BP 131/85 09/02/16 15:00 Pulse Ox 95 09/02/16 15:00 Intake & Output 09/02/16 09/02/16 09/03/16 06:59 18:59 06:59 Output Total 500 Balance -500 Weight 147.5 kg Output: Urine 500 Other: Voiding Method Indwelling Catheter Indwelling Catheter # Bowel Movements 1 - Exam 61 year-old male who suffers from obesity. Remains in the intensive care unit. He is currently on high flow oxygen not BiPAP. HEENT: Anicteric conjunctiva are pink and moist nasal mucosa grossly intact without significant lesions, there is no thrush. Dentition is warm for age. Neck: The neck is supple without significant lymphadenopathy or thyromegaly. Lungs: Symmetrical air entry is noted with evidence of extra wheezes that are scattered. No julian bronchial sounds were noted. No egophony or dullness. Heart: Irregular with an audible S1 and S2, no S3 soft S4, no new murmur click or rub. Abdomen: Obese, Positive bowel sounds soft and nontender without palpable masses or organomegaly. There was no guarding or rebound. Evidence of the prior abdominal surgeries noted. At the most superior aspect of the surgical incision is evidence of some hyper-granulation tissue. At the base of the hyperventilation tissue is exposed mesh. Extremities: There is bilateral lower extremity edema. There some erythema to both lower extremities. Much more prominent on the right lower extremity from the knee distally. There is evidence of the significant ulceration to the heel that measures at 7.1 x 5.2 x 0.3 cm. Neuro:He is sitting upright ate dinner still with vague and disconnected speech but stronger overall. - Labs CBC & Chem 7: 08/31/16 06:25 09/01/16 06:24 Labs: Abnormal Lab Results - Last 24 Hours (Table) 09/02/16 09/02/16 09/02/16 Range/Units 06:23 11:27 20:22 PT 27.7 H (9.0-12.0) sec POC Glucose (mg/dL) 113 H 132 H (75-99) mg/dL Laboratory Results WBC 14.2 k/uL (3.8-10.6) H 08/31/16 06:25 RBC 3.86 m/uL (4.30-5.90) L 08/31/16 06:25 Hgb 11.4 gm/dL (13.0-17.5) L 08/31/16 06:25 Hct 37.1 % (39.0-53.0) L 08/31/16 06:25 MCV 95.9 fL (80.0-100.0) 08/31/16 06:25 MCH 29.6 pg (25.0-35.0) 08/31/16 06:25 MCHC 30.9 g/dL (31.0-37.0) L 08/31/16 06:25 RDW 15.6 % (11.5-15.5) H 08/31/16 06:25 Plt Count 338 k/uL (150-450) 08/31/16 06:25 Neutrophils % 79 % 08/31/16 06:25 Lymphocytes % 8 % 08/31/16 06:25 Monocytes % 7 % 08/31/16 06:25 Eosinophils % 3 % 08/31/16 06:25 Basophils % 1 % 08/31/16 06:25 Neutrophils # 11.2 k/uL (1.3-7.7) H 08/31/16 06:25 Lymphocytes # 1.1 k/uL (1.0-4.8) 08/31/16 06:25 Monocytes # 1.0 k/uL (0-1.0) 08/31/16 06:25 Eosinophils # 0.4 k/uL (0-0.7) 08/31/16 06:25 Basophils # 0.1 k/uL (0-0.2) 08/31/16 06:25 Manual Slide Review Performed 08/19/16 07:30 Hypochromasia Moderate 08/31/16 06:25 Poikilocytosis Slight 08/28/16 04:13 Macrocytosis Slight 08/27/16 05:00 PT 27.7 sec (9.0-12.0) H 09/02/16 06:23 INR 2.9 (<1.1) 09/02/16 06:23 APTT 31.4 sec (22.0-30.0) H 08/30/16 05:29 Sample Site rrad 08/23/16 09:48 ABG pH 7.35 (7.35-7.45) 08/23/16 09:48 ABG pCO2 55 mmHg (35-45) H 08/23/16 09:48 ABG pO2 92 mmHg (83-108) 08/23/16 09:48 ABG HCO3 30 mmol/L (21-25) H 08/23/16 09:48 ABG Total CO2 31 mmol/L (19-24) H 08/23/16 09:48 ABG O2 Saturation 97.0 % (94-97) 08/23/16 09:48 ABG Base Excess 4.3 mmol/L 08/23/16 09:48 FiO2 40 % 08/23/16 09:48 Sodium 141 mmol/L (137-145) 09/01/16 06:24 Potassium 3.6 mmol/L (3.5-5.1) 09/01/16 06:24 Chloride 100 mmol/L (98-107) 09/01/16 06:24 Carbon Dioxide 32 mmol/L (22-30) H 09/01/16 06:24 Anion Gap 9 mmol/L 09/01/16 06:24 BUN 48 mg/dL (9-20) H 09/01/16 06:24 Creatinine 2.20 mg/dL (0.66-1.25) H 09/01/16 06:24 Est GFR (MDRD) Af Amer 37 (>60 ml/min/1.73 sqM) 09/01/16 06:24 Est GFR (MDRD) Non-Af 31 (>60 ml/min/1.73 sqM) 09/01/16 06:24 Glucose 119 mg/dL (74-99) H 09/01/16 06:24 POC Glucose (mg/dL) 132 mg/dL (75-99) H 09/02/16 20:22 POC Glu Electrical Power Engineer ID Merna Wise 09/02/16 20:[address] Glu mg/dL 134 mg/dL 08/23/16 09:48 Hemoglobin A1c 6.3 % (4.2-6.1) H 08/23/16 09:48 Plasma Lactic Acid Cristiano 1.1 mmol/L (0.7-2.0) 08/20/16 03:09 Calcium 8.2 mg/dL (8.4-10.2) L 09/01/16 06:24 Ionized Calcium Mara 5.0 mg/dL (4.5-5.3) 08/24/16 05:38 Phosphorus 4.0 mg/dL (2.5-4.5) 09/01/16 06:24 Magnesium 1.8 mg/dL (1.6-2.3) 09/01/16 06:24 Total Bilirubin 1.3 mg/dL (0.2-1.3) 08/31/16 06:25 AST 37 U/L (17-59) 08/31/16 06:25 ALT 29 U/L (21-72) 08/31/16 06:25 Alkaline Phosphatase 144 U/L (38-126) H 08/31/16 06:25 Ammonia 23 umol/L (<30) 08/27/16 05:00 Total Creatine Kinase 209 U/L (55-170) H 08/15/16 11:54 CK-MB (CK-2) 2.9 ng/mL (0.0-2.4) H* 08/15/16 11:54 CK-MB (CK-2) Rel Index 1.4 08/15/16 11:54 Troponin I 0.201 ng/mL (0.000-0.034) H* 08/15/16 11:54 NT-Pro-B Natriuret Pep 7750 pg/mL 08/20/16 03:09 Total Protein 6.3 g/dL (6.3-8.2) 08/31/16 06:25 Albumin 2.8 g/dL (3.5-5.0) L 08/31/16 06:25 Triglycerides 203 mg/dL (<150) H 08/23/16 09:48 TSH 2.480 mIU/L (0.465-4.680) 08/20/16 04:00 Urine Color Yellow 08/29/16 12:55 Urine Appearance Turbid (Clear) 08/29/16 12:55 Urine pH 6.0 (5.0-8.0) 08/29/16 12:55 Ur Specific [place] 1.011 (1.001-1.035) 08/29/16 12:55 Urine Protein 1+ (Negative) H 08/29/16 12:55 Urine Glucose (UA) Negative (Negative) 08/29/16 12:55 Urine Ketones Negative (Negative) 08/29/16 12:55 Urine Blood Moderate (Negative) H 08/29/16 12:55 Urine Nitrite Negative (Negative) 08/29/16 12:55 Urine Bilirubin Negative (Negative) 08/29/16 12:55 Urine Urobilinogen <2.0 mg/dL (<2.0) 08/29/16 12:55 Ur Leukocyte Esterase Large (Negative) H 08/29/16 12:55 Urine RBC >182 /hpf (0-5) H 08/29/16 12:55 Urine WBC >182 /hpf (0-5) H 08/29/16 12:55 Urine WBC Clumps Many /hpf (None) H 08/29/16 12:55 Ur Squamous Epith Cells 3 /hpf (0-4) 08/20/16 04:20 Amorphous Sediment Rare /hpf (None) H 08/20/16 04:20 Urine Bacteria Rare /hpf (None) H 08/29/16 12:55 Hyaline Casts 8 /lpf (0-2) H 08/15/16 00:40 Urine Mucus Rare /hpf (None) H 08/29/16 12:55 Urine Yeast (Budding) Many /hpf (None) H 08/29/16 12:55 Vancomycin Trough 31.1 ug/mL H* 08/17/16 23:00 Random Vancomycin 17.0 ug/mL 08/20/16 04:00 Laboratory Results WBC 14.2 k/uL (3.8-10.6) H 08/31/16 06:25 RBC 3.86 m/uL (4.30-5.90) L 08/31/16 06:25 Hgb 11.4 gm/dL (13.0-17.5) L 08/31/16 06:25 Hct 37.1 % (39.0-53.0) L 08/31/16 06:25 MCV 95.9 fL (80.0-100.0) 08/31/16 06:25 MCH 29.6 pg (25.0-35.0) 08/31/16 06:25 MCHC 30.9 g/dL (31.0-37.0) L 08/31/16 06:25 RDW 15.6 % (11.5-15.5) H 08/31/16 06:25 Plt Count 338 k/uL (150-450) 08/31/16 06:25 Neutrophils % 79 % 08/31/16 06:25 Lymphocytes % 8 % 08/31/16 06:25 Monocytes % 7 % 08/31/16 06:25 Eosinophils % 3 % 08/31/16 06:25 Basophils % 1 % 08/31/16 06:25 Neutrophils # 11.2 k/uL (1.3-7.7) H 08/31/16 06:25 Lymphocytes # 1.1 k/uL (1.0-4.8) 08/31/16 06:25 Monocytes # 1.0 k/uL (0-1.0) 08/31/16 06:25 Eosinophils # 0.4 k/uL (0-0.7) 08/31/16 06:25 Basophils # 0.1 k/uL (0-0.2) 08/31/16 06:25 Manual Slide Review Performed 08/19/16 07:30 Hypochromasia Moderate 08/31/16 06:25 Poikilocytosis Slight 08/28/16 04:13 Macrocytosis Slight 08/27/16 05:00 PT 27.7 sec (9.0-12.0) H 09/02/16 06:23 INR 2.9 (<1.1) 09/02/16 06:23 APTT 31.4 sec (22.0-30.0) H 08/30/16 05:29 Sample Site rrad 08/23/16 09:48 ABG pH 7.35 (7.35-7.45) 08/23/16 09:48 ABG pCO2 55 mmHg (35-45) H 08/23/16 09:48 ABG pO2 92 mmHg (83-108) 08/23/16 09:48 ABG HCO3 30 mmol/L (21-25) H 08/23/16 09:48 ABG Total CO2 31 mmol/L (19-24) H 08/23/16 09:48 ABG O2 Saturation 97.0 % (94-97) 08/23/16 09:48 ABG Base Excess 4.3 mmol/L 08/23/16 09:48 FiO2 40 % 08/23/16 09:48 Sodium 141 mmol/L (137-145) 09/01/16 06:24 Potassium 3.6 mmol/L (3.5-5.1) 09/01/16 06:24 Chloride 100 mmol/L (98-107) 09/01/16 06:24 Carbon Dioxide 32 mmol/L (22-30) H 09/01/16 06:24 Anion Gap 9 mmol/L 09/01/16 06:24 BUN 48 mg/dL (9-20) H 09/01/16 06:24 Creatinine 2.20 mg/dL (0.66-1.25) H 09/01/16 06:24 Est GFR (MDRD) Af Amer 37 (>60 ml/min/1.73 sqM) 09/01/16 06:24 Est GFR (MDRD) Non-Af 31 (>60 ml/min/1.73 sqM) 09/01/16 06:24 Glucose 119 mg/dL (74-99) H 09/01/16 06:24 POC Glucose (mg/dL) 132 mg/dL (75-99) H 09/02/16 20:22 POC Glu Electrical Power Engineer ID Merna Wise 09/02/16 20:[address] Glu mg/dL 134 mg/dL 08/23/16 09:48 Hemoglobin A1c 6.3 % (4.2-6.1) H 08/23/16 09:48 Plasma Lactic Acid Cristiano 1.1 mmol/L (0.7-2.0) 08/20/16 03:09 Calcium 8.2 mg/dL (8.4-10.2) L 09/01/16 06:24 Ionized Calcium Mara 5.0 mg/dL (4.5-5.3) 08/24/16 05:38 Phosphorus 4.0 mg/dL (2.5-4.5) 09/01/16 06:24 Magnesium 1.8 mg/dL (1.6-2.3) 09/01/16 06:24 Total Bilirubin 1.3 mg/dL (0.2-1.3) 08/31/16 06:25 AST 37 U/L (17-59) 08/31/16 06:25 ALT 29 U/L (21-72) 08/31/16 06:25 Alkaline Phosphatase 144 U/L (38-126) H 08/31/16 06:25 Ammonia 23 umol/L (<30) 08/27/16 05:00 Total Creatine Kinase 209 U/L (55-170) H 08/15/16 11:54 CK-MB (CK-2) 2.9 ng/mL (0.0-2.4) H* 08/15/16 11:54 CK-MB (CK-2) Rel Index 1.4 08/15/16 11:54 Troponin I 0.201 ng/mL (0.000-0.034) H* 08/15/16 11:54 NT-Pro-B Natriuret Pep 7750 pg/mL 08/20/16 03:09 Total Protein 6.3 g/dL (6.3-8.2) 08/31/16 06:25 Albumin 2.8 g/dL (3.5-5.0) L 08/31/16 06:25 Triglycerides 203 mg/dL (<150) H 08/23/16 09:48 TSH 2.480 mIU/L (0.465-4.680) 08/20/16 04:00 Urine Color Yellow 08/29/16 12:55 Urine Appearance Turbid (Clear) 08/29/16 12:55 Urine pH 6.0 (5.0-8.0) 08/29/16 12:55 Ur Specific [place] 1.011 (1.001-1.035) 08/29/16 12:55 Urine Protein 1+ (Negative) H 08/29/16 12:55 Urine Glucose (UA) Negative (Negative) 08/29/16 12:55 Urine Ketones Negative (Negative) 08/29/16 12:55 Urine Blood Moderate (Negative) H 08/29/16 12:55 Urine Nitrite Negative (Negative) 08/29/16 12:55 Urine Bilirubin Negative (Negative) 08/29/16 12:55 Urine Urobilinogen <2.0 mg/dL (<2.0) 08/29/16 12:55 Ur Leukocyte Esterase Large (Negative) H 08/29/16 12:55 Urine RBC >182 /hpf (0-5) H 08/29/16 12:55 Urine WBC >182 /hpf (0-5) H 08/29/16 12:55 Urine WBC Clumps Many /hpf (None) H 08/29/16 12:55 Ur Squamous Epith Cells 3 /hpf (0-4) 08/20/16 04:20 Amorphous Sediment Rare /hpf (None) H 08/20/16 04:20 Urine Bacteria Rare /hpf (None) H 08/29/16 12:55 Hyaline Casts 8 /lpf (0-2) H 08/15/16 00:40 Urine Mucus Rare /hpf (None) H 08/29/16 12:55 Urine Yeast (Budding) Many /hpf (None) H 08/29/16 12:55 Vancomycin Trough 31.1 ug/mL H* 08/17/16 23:00 Random Vancomycin 17.0 ug/mL 08/20/16 04:00 Microbiology 08/20/16 14:50 Blood Blood Culture - Final No Growth after 144 hours 08/19/16 11:30 Heel - Right Gram Stain - Final 08/19/16 11:30 Heel - Right Wound Culture - Final Citrobacter freundii Enterococcus faecalis VRE Radhika albicans 08/20/16 04:20 Urine,Catheterized Urine Culture - Final 08/15/16 00:40 Blood Blood Culture - Final No Growth after 144 hours 08/15/16 00:40 Urine,Voided Urine Culture - Final Assessment and Plan (1) Sepsis Narrative/Plan: 61-year-old male who has a history of multiple medical troubles that includes diabetes obesity coronary artery disease and atrial fibrillation. Presents to Hospital feeling very poorly. He had worsening cardiac dysrhythmia his atrial fibrillation and developed a rapid ventricular response. Became weak and ill and constantly remitted to coming to hospital. He is having difficulty with worsening ulceration to his heel. It was noted during his last hospital stay. And is to be getting ongoing care at the wound healing Center. During the last stay it was a goal to have him go to extended care however he refused. And then with therapy he was proving that he was able to get up and move a bit. Despite this he has not been doing well at home. He's been getting worse. He now has marked worsening infection to the right leg. Prior culture shows evidence of MRSA, klebsiella and Proteus infection. Constantly vancomycin and ceftriaxone were given for now until we have further data. Avoid Levaquin use since he is on Coumadin. Patient is chronic medical noncompliance. He has hemoglobin A1c was down to 6.1 Patient has been having difficulties with offloading the heel. A brown air boot is been requested to get up and off the bed at this time. We'll need to have a specialty boot designed the time of his discharge to take weight off of the heel. He will follow the wound healing Center. He' will continue follow- up with the vascular surgeon. Local wound care with Santyl will be utilized given large amount of necrotic material, may need surgical debridement Pain control is improved Atrial fibrillation is controlled. Continues to have leukocytosis but improving with current wound care and antibiotic therapy Creatinine is increased. Ketorolac was discontinued and being monitored. Creatinine remains at 1.6 Was receiving vancomycin therapy. However when the VRE that was isolated this was altered to daptomycin. Wound culture with gram-negative bacilli. Patient does have a remote history of pseudomonal infection. As well as of MRSA. cefepime given the current culture results. Respiratory failure has improved and It has been discussed with his the possibility of a DO NOT RESUSCITATE order. She does not believe she is quite ready. We discussed that her has not taken good care of himself. In no appears to have chronic respiratory failure there is BiPAP dependent. If he does not improve he may require tracheostomy and chronic ventilator placement. Fortunately has had an improvement in his status today. The issue is less pressing. However DO NOT RESUSCITATE order is still appropriate. She will discuss this with her son. Bone scan confirms osteomyelitis to the heel. Currently planning a 6 week course of antibiotic therapy with cefepime and daptomycin due to the culture. We'll likely need to go to select specialty due to his wound care needs and complex antibiotic therapy and rehab. 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
[2016-09-02] MEDS: FINASTERIDE 5 MG TAB PO SCH (22:35)
[2016-09-02] MEDS: COLLAGENASE 250 UNIT/GM OINTMENT 30 GM TUBE TOPICAL SCH (22:36)
[2016-09-02] MEDS: QUEtiapine 25 MG TAB PO SCH (22:36)
[2016-09-03 00:15] LABS: Glucose,Whole Blood 120 mg/dL (75-99)
[2016-09-03 06:48] LABS: INR 3.8 (<1.1); Prothrombin Time 37.5 sec (9.0-12.0)
[2016-09-03] MEDS: BUDESONIDE 0.5 MG/2 ML NEBU INHALATION SCH (07:06)
[2016-09-03] MEDS: LEVALBUTEROL NEB 1.25 MG/3 ML AMP INHALATION SCH ×3 (07:06→15:48)
[2016-09-03 07:07] LABS: Glucose,Whole Blood 79 mg/dL (75-99)
--- NOTE | 2016-09-03 08:07 | P.PN ---
Subjective Principal diagnosis: Sepsis and cellulitis of foot ulcers. Objective - Vital Signs Vital signs: Vital Signs Temp 98.2 F 09/02/16 22:39 Pulse 90 09/03/16 07:23 Resp 18 09/02/16 22:39 BP 153/66 09/02/16 22:39 Pulse Ox 92 L 09/02/16 22:39 Intake & Output 09/02/16 09/03/16 09/03/16 18:59 06:59 18:59 Intake Total 60 Output Total 300 Balance -240 Weight 147.5 kg Intake: IV 60 .9 @ 20 60 Output: Urine 300 Other: Voiding Method Indwelling Catheter Indwelling Catheter # Bowel Movements 1 - Constitutional General appearance: Present: obese - EENT Eyes: Absent: abnormal pupil - Neck Neck: Absent: lymphadenopathy - Respiratory Respiratory: bilateral: CTA - Cardiovascular Rhythm: irregularly irregular Heart sounds: normal: S1, S2 - Gastrointestinal General gastrointestinal: Absent: soft, tenderness - Integumentary Integumentary: Present: cellulitis - Labs CBC & Chem 7: 08/31/16 06:25 09/01/16 06:24 Labs: Abnormal Lab Results - Last 24 Hours (Table) 09/02/16 09/02/16 09/02/16 Range/Units 06:23 11:27 20:22 PT 27.7 H (9.0-12.0) sec POC Glucose (mg/dL) 113 H 132 H (75-99) mg/dL 09/02/16 09/03/16 Range/Units 23:55 06:33 PT 37.5 H (9.0-12.0) sec POC Glucose (mg/dL) 120 H (75-99) mg/dL Assessment and Plan (1) Open wound of both legs with complication Status: Acute (2) Cellulitis of left lower extremity Status: Acute (3) Cellulitis of right leg Status: Acute (4) Illiterate Status: Acute (5) Smoking Status: Acute Plan: Essentially awaiting for antibiotic treatment to be approved and the ECF. He will be kept in-house until this is elucidated. He is medically stable for transfer. Dr. Lilly's group will be covering for the weekend. Time with Patient: Less than 30
[2016-09-03 08:23] VITALS: BP 143/84; TEMP 98
[2016-09-03] MEDS: INSULIN LISPRO (humaLOG) 300 UNIT/3 ML VIAL SQ SCH ×2 (08:29→13:04)
[2016-09-03] MEDS: PANTOPRAZOLE 40 MG TABLET PO SCH (09:02)
[2016-09-03] MEDS: NICOTINE 21MG/24HR PATCH TRANSDERM SCH ×3 (09:02→09:07)
[2016-09-03] MEDS: TAMSULOSIN 0.4 MG CAP.ER.24H PO SCH (09:02)
[2016-09-03] MEDS: DOCUSATE 100 MG CAP PO SCH (09:02)
[2016-09-03] MEDS: GABAPENTIN 300 MG CAP PO SCH (09:02)
[2016-09-03] MEDS: THIAMINE 100 MG TAB PO SCH (09:02)
[2016-09-03] MEDS: NYSTATIN 100,000 UNIT/ML SUSP 500,000 UNIT/5 ML CUP PO SCH ×2 (09:02→16:02)
[2016-09-03] MEDS: FUROSEMIDE 10 MG/ML 4 ML VIAL IV SCH (09:02)
[2016-09-03] MEDS: FENOFIBRATE 160 MG TAB PO SCH (09:02)
[2016-09-03] MEDS: DILTIAZEM ORAL 60 MG TAB PO SCH ×2 (09:03→13:03)
--- NOTE | 2016-09-03 09:31 | CDI ---
In responding to this query, please exercise your independent professional judgment. The [facility] Coding Staff and Clinical Documentation Specialists appreciate your assistance in clarifying documentation, maintaining compliance with coding guidelines, accurately documenting patients condition and capturing severity of illness. The fact that a question is asked does not imply that any particular answer is desired or expected. Communication forms are a method of clarifying documentation and are not made part of the Legal Health Record. Thank you in advance for your clarification. Last Revision, February 2015 Roman Rhoades [address] [facility] [place] [address] Documentation Clarification Form 2nd request Date: 09/01/2016 10:26:00 AM From: Patricia Bob RN, CCDS Admit Date: 08/15/2016 4:39:00 AM Patient Name: Brandon Nunez Visit Number: [id number] Dr. Kamari Franks History/Risk Factors: Acute on chronic hypoxic and hypercapnic respiratory failure, COPD, CHF, Delirium tremens, Metabolic Encephalopathy, Sepsis Clinical Indicators: 08/27 Neurology: "Patient's confusion is likely due to his current pneumonia and wound infections." 08/22 Pulmonary: "Hypercapnic hypoxic respiratory failure bilateral pneumonia and pleural effusion, being monitored and observed with restrained for ETOH withdrawal and DTs. Patient continued to be intermittently agitated. He is awake though but does require soft wrist restraints. Patient has an extensive cellulitis and sepsis associated with that along with bilateral pneumonia. The patient is a high-risk for oral feeding for aspiration-related complication. In addition to that, patient continues to require the BiPAP machine." WBC: 19.2/14.5/19.6/12.4 Left shift: 17.3/9.6 CXR: Developing pneumonia e perihilar region, cardiomegly 08/31 Pulmonary Lung/Breathing assessment: "Lungs: Diminished breath sounds at the bases with scattered crackles." Treatment: Antibiotics: Iv Vanco PTD, IV Daptomycin 500 IVPB Q 24 hrs, Iv Cefapime 2gm IVPB Q 24 hrs, previously on IV Rocephin 2gm IVPB Q 24 hrs O2: room air, to 2L to BIPAP Breathing TX: Xopenex and Pulmicort In order to capture the severity of condition, please clarify if the condition signifies and you are treating for: Aspiration Pneumonia, identify if: Due to solids or liquids Bacterial Pneumonia, specify causal organism (if known) Gram Negative Pneumonia Due to Strep Due to Staph Due to E. coli Other bacteria (specify) Viral Pneumonia, specify casual organism (if known) Ventilator Associated Pneumonia Healthcare Acquired Pneumonia/Pneumonia, unspecified Unable to determine Link any associated conditions to the pneumonia: Influenza with secondary gram negative pneumonia Sepsis due to pneumonia Acute respiratory failure due to pneumonia Other, please specify Please document in your progress notes and discharge summary in order to capture severity of illness and risk of mortality. Include clinical findings that support your diagnosis. FYI: Press F11 to launch patient chart. Place X here if this finding has no clinical significance, is not applicable or if you are not able to provide any additional documentation. MENA
[2016-09-03] MEDS: traMADol 50 MG TAB PO SCH ×2 (09:54→16:29)
[2016-09-03] MEDS: INSULIN GLARGINE 100 UNIT/ML 10 ML VIAL SQ SCH (09:55)
[2016-09-03] MEDS: CEFEPIME 2 GM in SODIUM CHLORIDE 0.9% 50 ML IVPB SCH (11:20)
[2016-09-03 12:27] LABS: Glucose,Whole Blood 113 mg/dL (75-99)
--- NOTE | 2016-09-03 13:00 | P.PN ---
Subjective Hypoxic/hypercapnic respiratory failure This is a 61-year-old male patient being seen and examined. The patient came in with acute hypoxia and problems associated with his diabetic ulcers then cellulitis as well as sepsis. Patient is wearing BiPAP at night and when necessary. Patient states his breathing is ok today. He is coughing but says it is nonproductive. He denies fevers, chills. Objective - Vital Signs Vital signs: Vital Signs Temp 98 F 09/03/16 08:00 Pulse 84 09/03/16 11:22 Resp 18 09/03/16 08:00 BP 143/84 09/03/16 08:00 Pulse Ox 94 L 09/03/16 08:00 Intake & Output 09/02/16 09/03/16 09/03/16 18:59 06:59 18:59 Intake Total 60 Output Total 300 Balance -240 Weight 147.5 kg Intake: IV 60 .9 @ 20 60 Output: Urine 300 Other: Voiding Method Indwelling Catheter Indwelling Catheter Indwelling Catheter # Bowel Movements 1 - Exam GENERAL EXAM: Alert, active, comfortable in no apparent distress. HEAD: Normocephalic. EYES: Normal reaction of pupils, equal size. NOSE: Clear with pink turbinates. THROAT: No erythema or exudates. NECK: No masses, no JVD. CHEST: No chest wall deformity. LUNGS: Coarse lung sounds Scattered Rhonchi Noted. Diminished Bases. CVS: S1 and S2 normal with no audible mumurs, regular rhythm. ABDOMEN: No hepatosplenomegaly, normal bowel sounds, no guarding or rigidity. EXTREMITIES: +2-3 edema noted, chronic venous stasis SKIN: Bilateral lower extremity cellulitis CENTRAL NERVOUS SYSTEM: No focal deficits, tone is normal in all 4 extremities. - Labs CBC & Chem 7: 08/31/16 06:25 09/01/16 06:24 Labs: Abnormal Lab Results - Last 24 Hours (Table) 09/02/16 09/02/16 09/03/16 Range/Units 20:22 23:55 06:33 PT 37.5 H (9.0-12.0) sec POC Glucose (mg/dL) 132 H 120 H (75-99) mg/dL 09/03/16 Range/Units 12:26 PT (9.0-12.0) sec POC Glucose (mg/dL) 113 H (75-99) mg/dL Assessment and Plan Plan: Assessment Acute hypoxic and hypercapnic respiratory failure Acute exacerbation of CHF, diastolic, ejection fraction 60-65% Atrial fibrillation with rapid ventricular response Likely underlying COPD, active tobacco abuse Delirium tremens Coumadin coagulopathy, therapeutic Sepsis Anemia, normochromic normocytic Thrombocytosis Hyperammonemia Lower extremity cellulitis: polymicrobial Diabetic ulcer DM2 Super morbid obesity, concerning for underlying MACO/OHS Toxic metabolic encephalopathy Acute kidney injury on chronic kidney disease Pulmonary hypertension, moderate to severe, RVSP 53 mmHg Peripheral arterial disease Active tobacco abuse Thrush Plan is cleared from a pulmonary standpoint for discharge. Continue BiPAP PRN and Qhs Diuresis, Lasix decrease to daily Monitor renal function Colace Nystatin Bronchodilators and Pulmicort Antibiotics per ID Wound care Continue GI and DVT Prophylaxis: Protonix, Coumadin Smoking cessation highly recommended, Nicotine TD Consult PT and OT Consult PMR Restart patient's home oral medications, including Coumadin, goal INR 2-3 Patient is currently awaiting transfer to extended care facility I performed an examination of the patient and discussed their management with the nurse practitioner. I have reviewed the nurse practitioner's note and agree with the documented findings and plan of care. We are covering for Dr. LUANN Tenorio's group today.
[2016-09-03] MEDS: CYANOCOBALAMIN 500 MCG TAB PO SCH (13:03)
[2016-09-03 15:51] VITALS: PULSE 82
[2016-09-03] MEDS: DAPTOmycin 500 MG in SODIUM CHLORIDE 0.9% 50 ML IV SCH (16:01)
[2016-09-03] MEDS: SODIUM CHLORIDE 0.9% 1,000 ML IV SCH (16:02)
--- NOTE | 2016-09-08 08:06 | CDI ---
In responding to this query, please exercise your independent professional judgment. The [facility] Coding Staff and Clinical Documentation Specialists appreciate your assistance in clarifying documentation, maintaining compliance with coding guidelines, accurately documenting patients condition and capturing severity of illness. The fact that a question is asked does not imply that any particular answer is desired or expected. Communication forms are a method of clarifying documentation and are not made part of the Legal Health Record. Thank you in advance for your clarification. Last Revision, February 2015 Roman Rhoades [address] [facility] [place] [address] Documentation Clarification Form Date: 09/08/2016 7:49:00 AM From: Amber Plasencia Admit Date: 08/15/2016 4:39:00 AM Patient Name: Brandon Nunez Visit Number: [id number] Discharge Date: 09/08/16 Dr. Rafita Kaur Per your consult "There is evidence of the significant ulceration to the heel the measures at 7.1 x 5.2 x 0.3 cm. There is extensive necrosis present. This is sharp and debrided away with scissors and forceps" In order to capture the severity of condition and code the appropriate procedure could you please document the followin. What is the type of debridement: Excisional debridement (the removal of necrotic, devitalized tissue or slough by means of cutting away of tissue) Non-excisional debridement (the removal of necrotic, devitalized tissue or slough by means of flushing, brushing, or washing. (Irrigation) Other; with explanation for clinical findings Unable to determine (no explanation for clinical findings) 2. The depth of the debridement: Skin Subcutaneous tissue and fascia Muscle Bursa and ligaments Tendons Bone Other/unspecified Please document addendum in your consult in order to capture severity of illness and risk of mortality. Include clinical findings that support your diagnosis. FYI: Press F11 to launch patient chart. Place X here if this finding has no clinical significance, is not applicable or if you are not able to provide any additional documentation. GLORIA Larose, CCS, [facility] Certified I-10 Conference Services Director/Paige/Conference Services Director II If you have any questions or concerns please contact Deb Harris, Obiee Architect, Roman Rhoades @ [phone] [facility]
[2016-09-13 08:31] LABS: Glucose,Whole Blood 227 mg/dL (75-99)
== END 2016-09-03 16:35 | DRG 853 ==
LOC: EC 23:30 → 6SEL 08-15 04:39 → 6ICU 08-17 12:53 → 6SEL 08-17 12:59 → 5MS5E 08-17 22:50 → 6ICU 08-20 03:54 → 5MS5E 08-30 18:40
PROVIDERS: ADMIT Family Medicine; ATTEND Family Medicine
PROC: 0JDQ3ZZ Extraction of Right Foot Subcutaneous Tissue and Fascia, Percutaneous Approach (ICD-10-PCS; 2016-08-15)
PROC: 3E0436Z Introduction of Nutritional Substance into Central Vein, Percutaneous Approach (ICD-10-PCS; 2016-08-23)
PROC: 02HV33Z Insertion of Infusion Device into Superior Vena Cava, Percutaneous Approach (ICD-10-PCS; principal; 2016-08-24 09:30)
PROC: B548ZZA Ultrasonography of Superior Vena Cava, Guidance (ICD-10-PCS; 2016-08-24 09:30)
DX: A41.9 Sepsis, unspecified organism (principal); J96.21 Acute and chronic respiratory failure with hypoxia; I50.43 Acute on chronic combined systolic (congestive) and diastolic (congestive) heart failure; G92 Toxic encephalopathy; N17.9 Acute kidney failure, unspecified; F10.231 Alcohol dependence with withdrawal delirium; I27.2 Other secondary pulmonary hypertension; J44.0 Chronic obstructive pulmonary disease with (acute) lower respiratory infection; B37.0 Candidal stomatitis; N18.6 End stage renal disease; J96.22 Acute and chronic respiratory failure with hypercapnia; E66.2 Morbid (severe) obesity with alveolar hypoventilation; Z68.42 Body mass index [BMI] 45.0-49.9, adult; L97.412 Non-pressure chronic ulcer of right heel and midfoot with fat layer exposed; E72.20 Disorder of urea cycle metabolism, unspecified; I13.2 Hypertensive heart and chronic kidney disease with heart failure and with stage 5 chronic kidney disease, or end stage renal disease; M86.8X7 Other osteomyelitis, ankle and foot; L03.115 Cellulitis of right lower limb; L03.116 Cellulitis of left lower limb; I48.1 Persistent atrial fibrillation; G31.84 Mild cognitive impairment of uncertain or unknown etiology; R65.20 Severe sepsis without septic shock; E11.42 Type 2 diabetes mellitus with diabetic polyneuropathy; E11.69 Type 2 diabetes mellitus with other specified complication; E11.621 Type 2 diabetes mellitus with foot ulcer; E11.22 Type 2 diabetes mellitus with diabetic chronic kidney disease; E11.65 Type 2 diabetes mellitus with hyperglycemia; Z66 Do not resuscitate; E78.5 Hyperlipidemia, unspecified; I99.8 Other disorder of circulatory system; I35.0 Nonrheumatic aortic (valve) stenosis; D64.9 Anemia, unspecified; K58.9 Irritable bowel syndrome, unspecified; H91.90 Unspecified hearing loss, unspecified ear; N40.0 Benign prostatic hyperplasia without lower urinary tract symptoms; F17.200 Nicotine dependence, unspecified, uncomplicated; D47.3 Essential (hemorrhagic) thrombocythemia; I25.10 Atherosclerotic heart disease of native coronary artery without angina pectoris; G47.33 Obstructive sleep apnea (adult) (pediatric); F41.9 Anxiety disorder, unspecified; F32.9 Major depressive disorder, single episode, unspecified; I87.2 Venous insufficiency (chronic) (peripheral); R79.1 Abnormal coagulation profile; T45.515A Adverse effect of anticoagulants, initial encounter; I73.9 Peripheral vascular disease, unspecified; M19.91 Primary osteoarthritis, unspecified site; Z86.14 Personal history of Methicillin resistant Staphylococcus aureus infection; Z78.1 Physical restraint status; Z91.19 Patient's noncompliance with other medical treatment and regimen; Z87.442 Personal history of urinary calculi; Z88.1 Allergy status to other antibiotic agents; Z88.2 Allergy status to sulfonamides; Z79.4 Long term (current) use of insulin; Z79.01 Long term (current) use of anticoagulants; Z79.899 Other long term (current) drug therapy
CPT/HCPCS: 36415; 36569; 36600; 70450; 71010; 71250; 76604; 76937; 78315; 80048; 80053; 80202; 81001; 82140; 82330; 82550; 82553; 82805; 83036; 83605; 83735; 83880; 84100; 84132; 84443; 84478; 84484; 85025; 85027; 85610; 85730; 87040; 87070; 87077; 87086; 87186; 87205; 93005; 94640; 94660; 94760; 96365; 96366; 96367; 99285

== ENCOUNTER 2016-09-07 17:45 | Inpatient (IN) | payer OTHER ==
[2016-09-07 17:58] LABS: Glucose,Whole Blood 68 mg/dL (75-99)
[2016-09-07] MEDS ORDERED: SODIUM CHLORIDE 0.9% 1,000 ML IV ONE (18:12)
[2016-09-07] MEDS ORDERED: NEOMYCIN-BACITRACIN-POLY OINT 1 APPLIC/EACH PACKET TOPICAL STA (18:15)
--- NOTE | 2016-09-07 18:20 | ED ---
General Adult HPI - General Chief complaint: Altered Mental Status Stated complaint: Altered Mental Status Time Seen by Provider: 09/07/16 17:59 Source: EMS Mode of arrival: EMS Limitations: altered mental status - History of Present Illness Initial comments: This 61-year-old white male presents from the [facility]/rehab center with a complaint of elevated creatinine. The patient's creatinine apparently was in the near normal range this past week but now is 6.2 per recent labs. The patient is confused as well and unable to give any history of relevance. She relates that he was in the hospital and in the intensive care unit for quite some time recently and prior to being transferred to the [facility]. He apparently was dealing with significant infections to his lower extremities and is on antibiotics for 6 weeks through a left arm PICC line. He apparently was hypotensive. He has been confused ever since he is had this incident. He apparently also had atrial fibrillation with rapid ventricular response while in the hospital. He has no current complaints whatsoever. No other modifying factors. History is somewhat limited due to patient's current mental status. - Related Data Home Medications Medication Instructions Recorded Confirmed Fenofibrate Nanocrystallized 145 mg PO DAILY 07/27/16 09/07/16 [Tricor] Finasteride [Proscar] 5 mg PO HS 07/27/16 09/07/16 Gabapentin [Neurontin] 300 mg PO BID 07/27/16 09/07/16 Metoprolol Tartrate [Lopressor] 100 mg PO BID 07/27/16 09/07/16 Niacin [Niacin ER] 500 mg PO DAILY 07/27/16 09/07/16 Allopurinol [Zyloprim] 100 mg PO DAILY 08/15/16 09/07/16 Furosemide [Lasix] 40 mg PO BID 08/15/16 09/07/16 Spironolactone [Aldactone] 25 mg PO DAILY 08/15/16 09/07/16 buPROPion HCL [Wellbutrin XL] 300 mg PO DAILY 08/15/16 09/07/16 Diltiazem Oral [Cardizem*] 60 mg PO Q6HR 09/07/16 09/07/16 traMADol HCl [Ultram] 50 mg PO Q8HR 09/07/16 09/07/16 Previous Rx's Medication Instructions Recorded Acetaminophen Tab [Tylenol] 1,000 mg PO Q6HR PRN tab 09/01/16 Collagenase [Santyl] 1 applic TOPICAL HS dose 09/01/16 Cyanocobalamin [Vitamin B-12] 1,000 mcg PO DAILY@1200 tab 09/01/16 DAPTOmycin [Cubicin] 500 mg IV Q24H #42 vial 09/01/16 Insulin Glargine [Lantus] 25 unit SQ DAILY vial 09/01/16 Nicotine 21Mg/24Hr Patch [Habitrol] 1 patch TRANSDERM DAILY patch 09/01/16 Nystatin 100,000 Unit/ml Susp 500,000 unit PO QID dose 09/01/16 [Mycostatin Oral Susp] Pantoprazole [Protonix] 40 mg PO DAILY tab 09/01/16 Thiamine [Vitamin B-1] 100 mg PO BID tab 09/01/16 Warfarin [Coumadin] 1.25 mg PO DAILY@1800 tab 09/01/16 Allergies Allergy/AdvReac Type Severity Reaction Status Date / Time sulfamethoxazole Allergy Rash/Hives Verified 09/07/16 19:35 [From Bactrim] trimethoprim [From Bactrim] Allergy Rash/Hives Verified 09/07/16 19:35 Review of Systems ROS Statement: Those systems with pertinent positive or pertinent negative responses have been documented in the HPI. ROS Other: All systems not noted in ROS Statement are negative. Past Medical History Past Medical History: Atrial Fibrillation, Diabetes Mellitus, Eye Disorder, Hearing Disorder / Deafness, Hyperlipidemia, Hypertension, Osteoarthritis (OA), Prostate Disorder, Sleep Apnea/CPAP/BIPAP, Vascular Disorder Additional Past Medical History / Comment(s): Pt fell 01/06/16 R humeral fracture. Other HX: NIDDM, irritable bowel syndrome, numerous wounds bilateral legs and feet and an abdominal wound after previous hernia surgery with mesh - has been tx in wound center and has had several debridements, currently being treated in wound center for bilateral lower leg ulcers, charcot Lfoot, hx of diabetic villareal grade 2 bilateral foot ulcers, abdominal wall ulceration with I&D, urinary calculus., BPH, bilateral hands and feet peripheral neuropathy, L eye astigmatism, edentulous. History of Any Multi-Drug Resistant Organisms: MRSA, VRE Date of last positivie culture/infection: 08/19/16 VRE; 02/15/16 MRSA MDRO Source:: Heel VRE; Legs-MRSA Past Surgical History: Bladder Surgery, Hernia Repair, Tonsillectomy Additional Past Surgical History / Comment(s): I and D abdominal wall ulcer s/p abdominal hernia repair with mesh-infected post op and mesh exposed, wound center tx for bilateral feet ulcers-healed and discharged 03/25/14, current wound center tx for bilateral lower leg ulcers, picc line insertion and removal , cystoscopy which was unsuccessful for removing bladder stone. Past Anesthesia/Blood Transfusion Reactions: No Reported Reaction Past Psychological History: Anxiety, Depression Additional Psychological History / Comment(s): Remains an ongoing daily tobacco smoker. Does have history of occasional alcohol use. Denies difficulty with alcohol use. Denies recreational drug use.He is on [facility].To begin travels. No animalexposures. Ambulates with cane. Not able to drive as of late Smoking Status: Current every day smoker Past Alcohol Use History: Occasional Additional Past Alcohol Use History / Comment(s): Pt states he started smoking in 1972 and is about a ppd smoker. Pt states he drinks every couple days- a couple whiskeys. Past Drug Use History: None Reported - Past Family History Brother(s) Family Medical History: Cancer Additional Family Medical History / Comment(s): Breast cancer Father Family Medical History: Diabetes Mellitus Additional Family Medical History / Comment(s): Father of a brain tumor in his early 80s Mother Family Medical History: No Reported History Additional Family Medical History / Comment(s): Still living. General Exam - General Exam Comments Initial Comments: GENERAL: The patient is well nourished and well hydrated. VITAL SIGNS: Heart rate, blood pressure, respiratory rate reviewed as recorded in nurse's notes. EYES: Pupils are round and reactive. Extraocular movements are intact. No conjunctival / lid redness or swelling. ENT: No external evidence of injury, swelling, or ecchymosis. Airway is patent. Throat is clear. NECK: Nontender. No swelling or evidence of injury. No subcutaneous emphysema. Trachea is midline. No thyroid mass. HEART: Regular rate and rhythm. Good peripheral pulses. LUNGS/CHEST: Breath sounds clear and equal bilaterally. No rales, rhonchi, or wheezes. No ecchymosis, subcutaneous emphysema, or tenderness. ABDOMEN: Abdomen soft without tenderness. No palpable masses or organomegaly. No peritoneal signs. No abdominal wall swelling or ecchymosis. EXTREMITIES: No extremity tenderness. Normal muscle tone and function. No thoracolumbar tenderness. NEUROLOGIC: Sensation is grossly intact. Cranial nerve exam reveals face is symmetrical, tongue is midline, speech is clear. SKIN: There is significant crack skin and ears erythema noted to bilateral lower extremities worse on the right side with obvious wound noted to her right heel with some mild serosanguineous drainage. There is an additional slight wound present to the bilateral shins. PSYCHIATRIC: Alert and oriented. Appropriate behavior and judgment. Limitations: altered mental status Course Vital Signs 09/07/16 09/07/16 09/07/16 17:52 18:32 19:13 Temperature 96.9 F L 97.5 F L Pulse Rate 59 L 54 L 61 Respiratory 18 18 18 Rate Blood Pressure 101/66 113/78 106/65 O2 Sat by Pulse 97 96 96 Oximetry Medical Decision Making - Medical Decision Making The patient was seen and examined. All diagnostics were reviewed. The EKG shows a rhythm of atrial fibrillation with a heart rate of 55. There is evidence of left axis deviation. There is no acute ST-T wave changes noted. There is mild artifact. The QRS duration is 98 and the QTc interval is 451. The patient also had a chest x-ray done which shows likely signs of congestive heart failure. The computed tomography scan of the brain was done due to his confusion and this does show some white matter ischemic changes. The laboratory shows multiple abnormalities including a creatinine of 6.49, hyperkalemia, anemia, and INR of 3.9. It is felt as though he does have a degree of congestive heart failure as well as acute kidney injury and will require admission to the hospital. He still does have cellulitis of his lower extremities and is currently on antibiotics these will be continued as it appears that the cellulitis is still present but improving. He also has diabetes and his blood sugar was slightly on the low end of normal at 70 and he is fed in the ER. Is felt as though is quite fragile medically and has multiple current significant medical conditions. His overall long-term prognosis is fairly poor. The does understand. He is admitted to the hospital for further treatment. A Harris catheter was changed out as well. The case is discussed with Zoraida from internal medicine and she is agreeable with admission with cardiology and nephrology to consult. - Lab Data Result diagrams: 09/07/16 17:56 05/30/17 17:56 Lab Results 09/07/16 09/07/16 09/07/16 Range/Units 17:56 17:56 17:56 WBC (3.8-10.6) k/uL RBC (4.30-5.90) m/uL Hgb (13.0-17.5) gm/dL Hct (39.0-53.0) % MCV (80.0-100.0) fL MCH (25.0-35.0) pg MCHC (31.0-37.0) g/dL RDW (11.5-15.5) % Plt Count (150-450) k/uL Neutrophils % % Lymphocytes % % Monocytes % % Eosinophils % % Basophils % % Neutrophils # (1.3-7.7) k/uL Lymphocytes # (1.0-4.8) k/uL Monocytes # (0-1.0) k/uL Eosinophils # (0-0.7) k/uL Basophils # (0-0.2) k/uL Hypochromasia Anisocytosis Macrocytosis PT (9.0-12.0) sec INR (<1.1) APTT (22.0-30.0) sec Sodium (137-145) mmol/L Potassium (3.5-5.1) mmol/L Chloride (98-107) mmol/L Carbon Dioxide (22-30) mmol/L Anion Gap mmol/L BUN (9-20) mg/dL Creatinine (0.66-1.25) mg/dL Est GFR (MDRD) Af Amer (>60 ml/min/1.73 sqM) Est GFR (MDRD) Non-Af (>60 ml/min/1.73 sqM) Glucose (74-99) mg/dL POC Glucose (mg/dL) 68 L (75-99) mg/dL POC Glu Rod Hanger ID Denisha Hsu Calcium (8.4-10.2) mg/dL Total Bilirubin (0.2-1.3) mg/dL AST (17-59) U/L ALT (21-72) U/L Alkaline Phosphatase (38-126) U/L Ammonia 35 H (<30) umol/L Total Creatine Kinase 26 L (55-170) U/L CK-MB (CK-2) 2.4 (0.0-2.4) ng/mL CK-MB (CK-2) Rel Index 9.2 Troponin I 0.023 (0.000-0.034) ng/mL Total Protein (6.3-8.2) g/dL Albumin (3.5-5.0) g/dL 09/07/16 09/07/16 09/07/16 Range/Units 17:56 17:56 17:56 WBC 11.6 H (3.8-10.6) k/uL RBC 3.82 L (4.30-5.90) m/uL Hgb 11.4 L (13.0-17.5) gm/dL Hct 37.5 L (39.0-53.0) % MCV 98.4 (80.0-100.0) fL MCH 29.9 (25.0-35.0) pg MCHC 30.4 L (31.0-37.0) g/dL RDW 16.6 H (11.5-15.5) % Plt Count 465 H (150-450) k/uL Neutrophils % 76 % Lymphocytes % 11 % Monocytes % 6 % Eosinophils % 3 % Basophils % 1 % Neutrophils # 8.8 H (1.3-7.7) k/uL Lymphocytes # 1.3 (1.0-4.8) k/uL Monocytes # 0.7 (0-1.0) k/uL Eosinophils # 0.4 (0-0.7) k/uL Basophils # 0.1 (0-0.2) k/uL Hypochromasia Marked Anisocytosis Slight Macrocytosis Slight PT 37.8 H (9.0-12.0) sec INR 3.9 (<1.1) APTT 56.9 H (22.0-30.0) sec Sodium 132 L (137-145) mmol/L Potassium 5.5 H (3.5-5.1) mmol/L Chloride 92 L (98-107) mmol/L Carbon Dioxide 24 (22-30) mmol/L Anion Gap 16 mmol/L BUN 71 H (9-20) mg/dL Creatinine 6.49 H* (0.66-1.25) mg/dL Est GFR (MDRD) Af Amer 11 (>60 ml/min/1.73 sqM) Est GFR (MDRD) Non-Af 9 (>60 ml/min/1.73 sqM) Glucose 70 L (74-99) mg/dL POC Glucose (mg/dL) (75-99) mg/dL POC Glu Rod Hanger ID Calcium 8.5 (8.4-10.2) mg/dL Total Bilirubin 1.3 (0.2-1.3) mg/dL AST 26 (17-59) U/L ALT 25 (21-72) U/L Alkaline Phosphatase 102 (38-126) U/L Ammonia (<30) umol/L Total Creatine Kinase (55-170) U/L CK-MB (CK-2) (0.0-2.4) ng/mL CK-MB (CK-2) Rel Index Troponin I (0.000-0.034) ng/mL Total Protein 7.2 (6.3-8.2) g/dL Albumin 3.4 L (3.5-5.0) g/dL Disposition Clinical Impression: Altered mental status, RICHARDSON (acute kidney injury), Venous stasis ulcers of both lower extremities, Diabetes mellitus, Cellulitis of right leg, Hyperkalemia, Morbid obesity, Anemia, Congestive heart failure, Chronic a-fib Disposition: ADMITTED IP TO THIS [facility] Condition: Poor Time of Disposition: 20:33 Decision Date: 09/07/16 Decision Time: 20:33
[2016-09-07 18:37] LABS: Calcium 8.5 mg/dL (8.4-10.2); INR 3.9 (<1.1); Partial Thromboplastin Time 56.9 sec (22.0-30.0); Potassium 5.5 mmol/L (3.5-5.1); Prothrombin Time 37.8 sec (9.0-12.0); Total Bilirubin 1.3 mg/dL (0.2-1.3); Total Protein 7.2 g/dL (6.3-8.2)
[2016-09-07 18:52] LABS: Anisocytosis Slight; Basophils # (A) 0.1 k/uL (0-0.2); Basophils % (A) 1 %; CH 29.8; CHCM 30.5; Eosinophils # (A) 0.4 k/uL (0-0.7); Eosinophils % (A) 3 %; HCT 37.5 % (39.0-53.0); HDW 3.11; HGB 11.4 gm/dL (13.0-17.5); Hypochromasia Marked; Luc # (Auto) 0.29; Luc % (Auto) 3; Lymphocytes # (A) 1.3 k/uL (1.0-4.8); Lymphocytes % (A) 11 %; MCH 29.9 pg (25.0-35.0); MCHC 30.4 g/dL (31.0-37.0); MCV 98.4 fL (80.0-100.0); Macrocytosis Slight; Mean Platelet Volume 8.8; Monocytes # (A) 0.7 k/uL (0-1.0); Monocytes % (A) 6 %; Neutrophils # (A) 8.8 k/uL (1.3-7.7); Neutrophils % (A) 76 %; RBC 3.82 m/uL (4.30-5.90); RDW 16.6 % (11.5-15.5); WBC 11.6 k/uL (3.8-10.6); WBC (Perox) 10.31
--- NOTE | 2016-09-07 18:56 | XR ---
EXAMINATION TYPE: XR chest 1V portable DATE OF EXAM: 09/07/2016 COMPARISON: 08/30/2016 INDICATION: Previous abnormal chest TECHNIQUE: Single frontal view of the chest is obtained. FINDINGS: The heart size is enlarged. The pulmonary vasculature is normal. There is an opacity to the right midlung. This may be slightly larger than prior study. There may be an alveolar infiltrate developing. IMPRESSION: 1. Right lung opacity. Correlate for pneumonia versus fluid within the minor fissure. 2. An early developing alveolar infiltrate may be present. Correlate for congestive heart failure.
--- NOTE | 2016-09-07 19:02 | CT ---
EXAMINATION TYPE: CT brain wo con DATE OF EXAM: 09/07/2016 COMPARISON: 08/20/2016 INDICATION: Patient poor historian DLP: 1227 mGycm, Automated exposure control for dose reduction was used. CONTRAST: None CT of the brain is performed utilizing 3 mm thick sections through the posterior fossa and 3 mm thick sections through the remaining calvarium. Study is performed within 24 hours of arrival to the hosp ital. No abnormal hyperdensity is present to suggest an acute intracranial hemorrhage. No mass lesion is evident. No acute infarcts are evident. There is some periventricular white matter hypodensity likely related to chronic white matter ischemic changes. Ventricles and sulci are appropriate for the patient age. Note is made of a retention cyst within the posterior right maxillary sinus. Remaining paranasal sinu ses and mastoid air cells are clear. IMPRESSIONS: 1. Periventricular white matter ischemic type changes.
[2016-09-07 19:08] LABS: Creatine Kinase MB 2.4 ng/mL (0.0-2.4); Troponin I 0.023 ng/mL (0.000-0.034)
[2016-09-07] MEDS ORDERED: SODIUM POLYSTYRENE SULFONATE 15 GM/60 ML BOTTLE PO STA (20:34)
[2016-09-07] MEDS ORDERED: NALOXONE 0.4 MG/ML 1 ML VIAL IV PRN (20:35)
[2016-09-07] MEDS ORDERED: ASPIRIN 81 MG CHEW PO STA (20:43)
[2016-09-07] MEDS ORDERED: DAPTOmycin 500 MG VIAL IV SCH (20:45)
[2016-09-07 21:38] LABS: Appearance,Urine Cloudy (Clear); Bilirubin,Urine Negative (Negative); Glucose,Urine (UA) Negative (Negative); Ketones,Urine Negative (Negative); Leukocyte Esterase,Urine Large (Negative); Mucus,Urine Rare /hpf; Nitrite,Urine Negative (Negative); Particle Count 27315; Protein,Urine 3+ (Negative); RBC,Urine 63 /hpf (0-5); Specific Gravity,Urine 1.015 (1.001-1.035); UA Billing (MACRO vs. MICRO) MICRO; Urobilinogen,Urine <2.0 mg/dL (<2.0); WBC,Urine 90 /hpf (0-5)
--- NOTE | 2016-09-07 22:09 | ED ---
Medical Decision Making - Medical Decision Making The urine later came back and does show significant evidence of a urinary tract infection. He is given some Rocephin intravenously as well. - Lab Data Result diagrams: 09/07/16 17:56 09/07/16 17:56 Lab Results 09/07/16 09/07/16 09/07/16 Range/Units 17:56 17:56 17:56 WBC (3.8-10.6) k/uL RBC (4.30-5.90) m/uL Hgb (13.0-17.5) gm/dL Hct (39.0-53.0) % MCV (80.0-100.0) fL MCH (25.0-35.0) pg MCHC (31.0-37.0) g/dL RDW (11.5-15.5) % Plt Count (150-450) k/uL Neutrophils % % Lymphocytes % % Monocytes % % Eosinophils % % Basophils % % Neutrophils # (1.3-7.7) k/uL Lymphocytes # (1.0-4.8) k/uL Monocytes # (0-1.0) k/uL Eosinophils # (0-0.7) k/uL Basophils # (0-0.2) k/uL Hypochromasia Anisocytosis Macrocytosis PT (9.0-12.0) sec INR (<1.1) APTT (22.0-30.0) sec Sodium (137-145) mmol/L Potassium (3.5-5.1) mmol/L Chloride (98-107) mmol/L Carbon Dioxide (22-30) mmol/L Anion Gap mmol/L BUN (9-20) mg/dL Creatinine (0.66-1.25) mg/dL Est GFR (MDRD) Af Amer (>60 ml/min/1.73 sqM) Est GFR (MDRD) Non-Af (>60 ml/min/1.73 sqM) Glucose (74-99) mg/dL POC Glucose (mg/dL) 68 L (75-99) mg/dL POC Glu [employer] Consult[employer] ID Denisha Hsu Calcium (8.4-10.2) mg/dL Total Bilirubin (0.2-1.3) mg/dL AST (17-59) U/L ALT (21-72) U/L Alkaline Phosphatase (38-126) U/L Ammonia 35 H (<30) umol/L Total Creatine Kinase 26 L (55-170) U/L CK-MB (CK-2) 2.4 (0.0-2.4) ng/mL CK-MB (CK-2) Rel Index 9.2 Troponin I 0.023 (0.000-0.034) ng/mL Total Protein (6.3-8.2) g/dL Albumin (3.5-5.0) g/dL Urine Color Urine Appearance (Clear) Urine pH (5.0-8.0) Ur Specific [place] (1.001-1.035) Urine Protein (Negative) Urine Glucose (UA) (Negative) Urine Ketones (Negative) Urine Blood (Negative) Urine Nitrite (Negative) Urine Bilirubin (Negative) Urine Urobilinogen (<2.0) mg/dL Ur Leukocyte Esterase (Negative) Urine RBC (0-5) /hpf Urine WBC (0-5) /hpf Urine WBC Clumps (None) /hpf Hyaline Casts (0-2) /lpf Urine Mucus (None) /hpf 09/07/16 09/07/16 09/07/16 Range/Units 17:56 17:56 17:56 WBC 11.6 H (3.8-10.6) k/uL RBC 3.82 L (4.30-5.90) m/uL Hgb 11.4 L (13.0-17.5) gm/dL Hct 37.5 L (39.0-53.0) % MCV 98.4 (80.0-100.0) fL MCH 29.9 (25.0-35.0) pg MCHC 30.4 L (31.0-37.0) g/dL RDW 16.6 H (11.5-15.5) % Plt Count 465 H (150-450) k/uL Neutrophils % 76 % Lymphocytes % 11 % Monocytes % 6 % Eosinophils % 3 % Basophils % 1 % Neutrophils # 8.8 H (1.3-7.7) k/uL Lymphocytes # 1.3 (1.0-4.8) k/uL Monocytes # 0.7 (0-1.0) k/uL Eosinophils # 0.4 (0-0.7) k/uL Basophils # 0.1 (0-0.2) k/uL Hypochromasia Marked Anisocytosis Slight Macrocytosis Slight PT 37.8 H (9.0-12.0) sec INR 3.9 (<1.1) APTT 56.9 H (22.0-30.0) sec Sodium 132 L (137-145) mmol/L Potassium 5.5 H (3.5-5.1) mmol/L Chloride 92 L (98-107) mmol/L Carbon Dioxide 24 (22-30) mmol/L Anion Gap 16 mmol/L BUN 71 H (9-20) mg/dL Creatinine 6.49 H* (0.66-1.25) mg/dL Est GFR (MDRD) Af Amer 11 (>60 ml/min/1.73 sqM) Est GFR (MDRD) Non-Af 9 (>60 ml/min/1.73 sqM) Glucose 70 L (74-99) mg/dL POC Glucose (mg/dL) (75-99) mg/dL POC Glu Marine Consultant ID Calcium 8.5 (8.4-10.2) mg/dL Total Bilirubin 1.3 (0.2-1.3) mg/dL AST 26 (17-59) U/L ALT 25 (21-72) U/L Alkaline Phosphatase 102 (38-126) U/L Ammonia (<30) umol/L Total Creatine Kinase (55-170) U/L CK-MB (CK-2) (0.0-2.4) ng/mL CK-MB (CK-2) Rel Index Troponin I (0.000-0.034) ng/mL Total Protein 7.2 (6.3-8.2) g/dL Albumin 3.4 L (3.5-5.0) g/dL Urine Color Urine Appearance (Clear) Urine pH (5.0-8.0) Ur Specific [place] (1.001-1.035) Urine Protein (Negative) Urine Glucose (UA) (Negative) Urine Ketones (Negative) Urine Blood (Negative) Urine Nitrite (Negative) Urine Bilirubin (Negative) Urine Urobilinogen (<2.0) mg/dL Ur Leukocyte Esterase (Negative) Urine RBC (0-5) /hpf Urine WBC (0-5) /hpf Urine WBC Clumps (None) /hpf Hyaline Casts (0-2) /lpf Urine Mucus (None) /hpf 09/07/16 Range/Units 20:45 WBC (3.8-10.6) k/uL RBC (4.30-5.90) m/uL Hgb (13.0-17.5) gm/dL Hct (39.0-53.0) % MCV (80.0-100.0) fL MCH (25.0-35.0) pg MCHC (31.0-37.0) g/dL RDW (11.5-15.5) % Plt Count (150-450) k/uL Neutrophils % % Lymphocytes % % Monocytes % % Eosinophils % % Basophils % % Neutrophils # (1.3-7.7) k/uL Lymphocytes # (1.0-4.8) k/uL Monocytes # (0-1.0) k/uL Eosinophils # (0-0.7) k/uL Basophils # (0-0.2) k/uL Hypochromasia Anisocytosis Macrocytosis PT (9.0-12.0) sec INR (<1.1) APTT (22.0-30.0) sec Sodium (137-145) mmol/L Potassium (3.5-5.1) mmol/L Chloride (98-107) mmol/L Carbon Dioxide (22-30) mmol/L Anion Gap mmol/L BUN (9-20) mg/dL Creatinine (0.66-1.25) mg/dL Est GFR (MDRD) Af Amer (>60 ml/min/1.73 sqM) Est GFR (MDRD) Non-Af (>60 ml/min/1.73 sqM) Glucose (74-99) mg/dL POC Glucose (mg/dL) (75-99) mg/dL POC Glu Marine Consultant ID Calcium (8.4-10.2) mg/dL Total Bilirubin (0.2-1.3) mg/dL AST (17-59) U/L ALT (21-72) U/L Alkaline Phosphatase (38-126) U/L Ammonia (<30) umol/L Total Creatine Kinase (55-170) U/L CK-MB (CK-2) (0.0-2.4) ng/mL CK-MB (CK-2) Rel Index Troponin I (0.000-0.034) ng/mL Total Protein (6.3-8.2) g/dL Albumin (3.5-5.0) g/dL Urine Color Yellow Urine Appearance Cloudy (Clear) Urine pH 6.0 (5.0-8.0) Ur Specific [place] 1.015 (1.001-1.035) Urine Protein 3+ H (Negative) Urine Glucose (UA) Negative (Negative) Urine Ketones Negative (Negative) Urine Blood Moderate H (Negative) Urine Nitrite Negative (Negative) Urine Bilirubin Negative (Negative) Urine Urobilinogen <2.0 (<2.0) mg/dL Ur Leukocyte Esterase Large H (Negative) Urine RBC 63 H (0-5) /hpf Urine WBC 90 H (0-5) /hpf Urine WBC Clumps Many H (None) /hpf Hyaline Casts 3 H (0-2) /lpf Urine Mucus Rare H (None) /hpf Disposition Clinical Impression: Altered mental status, RICHARDSON (acute kidney injury), Venous stasis ulcers of both lower extremities, Diabetes mellitus, Cellulitis of right leg, Hyperkalemia, Morbid obesity, Anemia, Congestive heart failure, Chronic a-fib, UTI (urinary tract infection) Disposition: ADMITTED IP TO THIS [facility] Condition: Poor Referrals: Jarek Lofton DO [Primary Care Provider] - 1-2 days
[2016-09-07] MEDS: FINASTERIDE 5 MG TAB PO SCH (23:56)
[2016-09-07] MEDS: METOPROLOL TARTRATE 50 MG TAB PO SCH (23:57)
[2016-09-07] MEDS: GABAPENTIN 300 MG CAP PO SCH (23:57)
[2016-09-07] MEDS: FUROSEMIDE 40 MG TAB PO SCH (23:57)
[2016-09-07] MEDS: NYSTATIN 100,000 UNIT/ML SUSP 500,000 UNIT/5 ML CUP PO SCH (23:58)
[2016-09-07] MEDS: DILTIAZEM ORAL 60 MG TAB PO SCH (23:58)
[2016-09-07] MEDS: THIAMINE 100 MG TAB PO SCH (23:58)
[2016-09-08] MEDS: NITROGLYCERIN OINT 1 INCH/GM PACKET TOPICAL SCH ×5 (00:06→21:21)
[2016-09-08] MEDS: COLLAGENASE 250 UNIT/GM OINTMENT 30 GM TUBE TOPICAL SCH ×2 (00:06→21:23)
[2016-09-08] MEDS: traMADol 50 MG TAB PO SCH ×3 (00:07→17:45)
[2016-09-08 01:23] LABS: Troponin I 0.023 ng/mL (0.000-0.034)
[2016-09-08 01:27] LABS: Creatine Kinase MB 2.7 ng/mL (0.0-2.4)
[2016-09-08 05:54] LABS: Anisocytosis Slight; Basophils # (A) 0.1 k/uL (0-0.2); Basophils % (A) 1 %; CH 29.5; CHCM 30.2; Eosinophils # (A) 0.5 k/uL (0-0.7); Eosinophils % (A) 5 %; HCT 36.3 % (39.0-53.0); HDW 3.16; Hypochromasia Marked; Luc # (Auto) 0.33; Luc % (Auto) 3; Lymphocytes # (A) 1.5 k/uL (1.0-4.8); Lymphocytes % (A) 13 %; MCH 29.8 pg (25.0-35.0); MCHC 30.2 g/dL (31.0-37.0); MCV 98.6 fL (80.0-100.0); Macrocytosis Slight; Monocytes # (A) 0.6 k/uL (0-1.0); Monocytes % (A) 5 %; Neutrophils # (A) 8.2 k/uL (1.3-7.7); Neutrophils % (A) 73 %; RBC 3.68 m/uL (4.30-5.90); RDW 16.6 % (11.5-15.5); WBC 11.2 k/uL (3.8-10.6); WBC (Perox) 10.96
[2016-09-08 06:00] LABS: INR 4.3 (<1.1); Prothrombin Time 42.4 sec (9.0-12.0)
[2016-09-08 06:00] LABS: Glucose,Whole Blood 59 mg/dL (75-99)
[2016-09-08 06:11] LABS: Magnesium 1.9 mg/dL (1.6-2.3); Potassium 4.5 mmol/L (3.5-5.1)
[2016-09-08] MEDS: DILTIAZEM ORAL 60 MG TAB PO SCH ×3 (06:19→17:46)
[2016-09-08] MEDS: PANTOPRAZOLE 40 MG TABLET PO SCH (06:20)
[2016-09-08 06:24] LABS: Phosphorous 9.2 mg/dL (2.5-4.5)
[2016-09-08 06:28] LABS: Creatine Kinase MB 2.3 ng/mL (0.0-2.4); Troponin I 0.022 ng/mL (0.000-0.034)
[2016-09-08 06:33] LABS: Glucose,Whole Blood 83 mg/dL (75-99)
[2016-09-08] MEDS ORDERED: DAPTOmycin 500 MG in SODIUM CHLORIDE 0.9% 50 ML IV SCH (09:00)
[2016-09-08] MEDS ORDERED: SPIRONOLACTONE 25 MG TAB PO SCH (09:00)
--- NOTE | 2016-09-08 09:18 | P.NPCON ---
History of Present Illness - Reason for Consult acute renal failure - History of Present Illness Reason for consultation: Acute kidney injury History of present illness: Patient is a 61-year-old male seen in renal consultation for acute kidney injury. In July 2016 his creatinine was near 1. He was recently admitted to the hospital earlier this month with a lower extremity infection with osteomyelitis. At that time his creatinine was in the range of 1.5-2. He is currently maintained on daptomycin and Rocephin was started this admission for a possible UTI. Patient was at a residential and became progressively more confused and was subsequently sent to the hospital. His creatinine the time of admission was 6.2 and is now 6.7. He does have a Harris catheter in place and his urine output overnight was only 150 mL. Patient is still extremely confused and not really responding much to verbal commands. He appears somewhat agitated. He also has atrial fibrillation for which she is now maintained on oral Cardizem. His blood pressures have been in the systolic 90s to 120s but his most recent blood pressure from this morning is 81/51. He is currently maintained on normal saline running at 100 mL an hour. Vital signs are stable although hypotensive this morning. General: The patient appeared well nourished and normally developed. HEENT: Head exam is unremarkable. Neck is without jugular venous distension. LUNGS: Lungs are clear to auscultation and percussion. Breath sounds decreased. HEART: Rate and Rhythm are regular. First and second heart sounds normal. No murmurs, rubs or gallops. ABDOMEN: Abdominal exam reveals normal bowel sounds. Non-tender and non- distended. No evidence of peritonitis. EXTREMITITES: Trace pitting edema. Erythema in the bilateral lower extremities noted. Wounds are wrapped with no obvious drainage. Past Medical History Past Medical History: Atrial Fibrillation, Diabetes Mellitus, Eye Disorder, Hearing Disorder / Deafness, Hyperlipidemia, Hypertension, Osteoarthritis (OA), Prostate Disorder, Sleep Apnea/CPAP/BIPAP, Vascular Disorder Additional Past Medical History / Comment(s): Pt fell 01/06/16 R humeral fracture. Other HX: NIDDM, irritable bowel syndrome, numerous wounds bilateral legs and feet and an abdominal wound after previous hernia surgery with mesh - has been tx in wound center and has had several debridements, currently being treated in wound center for bilateral lower leg ulcers, charcot Lfoot, hx of diabetic villareal grade 2 bilateral foot ulcers, abdominal wall ulceration with I&D, urinary calculus., BPH, bilateral hands and feet peripheral neuropathy, L eye astigmatism, edentulous. History of Any Multi-Drug Resistant Organisms: MRSA, VRE Date of last positivie culture/infection: 08/19/16 VRE; 02/15/16 MRSA MDRO Source:: Heel VRE; Legs-MRSA Past Surgical History: Bladder Surgery, Hernia Repair, Tonsillectomy Additional Past Surgical History / Comment(s): I and D abdominal wall ulcer s/p abdominal hernia repair with mesh-infected post op and mesh exposed, wound center tx for bilateral feet ulcers-healed and discharged 03/25/14, current wound center tx for bilateral lower leg ulcers, picc line insertion and removal , cystoscopy which was unsuccessful for removing bladder stone. Past Anesthesia/Blood Transfusion Reactions: No Reported Reaction Past Psychological History: Anxiety, Depression Additional Psychological History / Comment(s): Remains an ongoing daily tobacco smoker. Does have history of occasional alcohol use. Denies difficulty with alcohol use. Denies recreational drug use.He is on medical prison.To begin travels. No animalexposures. Ambulates with cane. Not able to drive as of late Smoking Status: Current some day smoker Past Alcohol Use History: Occasional Additional Past Alcohol Use History / Comment(s): Pt states he started smoking in 1972 and is about a ppd smoker. Pt states he drinks every couple days- a couple whiskeys. Past Drug Use History: None Reported - Past Family History Brother(s) Family Medical History: Cancer Additional Family Medical History / Comment(s): Breast cancer Father Family Medical History: Diabetes Mellitus Additional Family Medical History / Comment(s): Father of a brain tumor in his early 80s Mother Family Medical History: No Reported History Additional Family Medical History / Comment(s): Still living. Medications and Allergies Home Medications Medication Instructions Recorded Confirmed Type Fenofibrate Nanocrystallized 145 mg PO DAILY 07/27/16 09/07/16 History [Tricor] Finasteride [Proscar] 5 mg PO HS 07/27/16 09/07/16 History Gabapentin [Neurontin] 300 mg PO BID 07/27/16 09/07/16 History Metoprolol Tartrate [Lopressor] 100 mg PO BID 07/27/16 09/07/16 History Niacin [Niacin ER] 500 mg PO DAILY 07/27/16 09/07/16 History Allopurinol [Zyloprim] 100 mg PO DAILY 08/15/16 09/07/16 History Furosemide [Lasix] 40 mg PO BID 08/15/16 09/07/16 History Spironolactone [Aldactone] 25 mg PO DAILY 08/15/16 09/07/16 History buPROPion HCL [Wellbutrin XL] 300 mg PO DAILY 08/15/16 09/07/16 History Diltiazem Oral [Cardizem*] 60 mg PO Q6HR 09/07/16 09/07/16 History traMADol HCl [Ultram] 50 mg PO Q8HR 09/07/16 09/07/16 History Allergies Allergy/AdvReac Type Severity Reaction Status Date / Time sulfamethoxazole Allergy Rash/Hives Verified 09/07/16 23:47 [From Bactrim] trimethoprim [From Bactrim] Allergy Rash/Hives Verified 09/07/16 23:47 Physical Exam Vitals: Vital Signs Temp Pulse Pulse Resp BP BP Pulse Ox 09/08/16 08:00 96.5 F L 60 81/51 94 L 09/08/16 04:00 97.4 F L 68 18 98/66 90 L 09/08/16 00:00 96.4 F L 66 18 113/71 92 L 09/07/16 22:26 96.9 F L 60 18 111/65 96 09/07/16 22:22 96.4 F L 63 18 113/71 92 L 09/07/16 21:28 63 18 120/65 96 09/07/16 20:57 96.7 F L 61 18 122/78 95 09/07/16 19:13 97.5 F L 61 18 106/65 96 09/07/16 18:32 54 L 18 113/78 96 09/07/16 17:52 96.9 F L 59 L 18 101/66 97 Intake and Output 09/07/16 09/08/16 09/08/16 22:59 06:59 14:59 Intake Total 1150 Balance 1150 Intake: Intake, IV Titration 800 Amount Sodium Chloride 0.9% 1, 800 000 ml @ 100 mls/hr IV . Q10H ONE Rx#:[id number] Oral 350 Other: Voiding Method Indwelling Catheter # Voids 150 # Bowel Movements 0 Weight 150 kg 150 kg Results - Lab Results Most recent lab results Calcium 8.0 mg/dL (8.4-10.2) L 09/08/16 05:46 Phosphorus 9.2 mg/dL (2.5-4.5) H* 09/08/16 05:46 Magnesium 1.9 mg/dL (1.6-2.3) 09/08/16 05:46 09/08/16 05:46 09/08/16 05:46 Assessment and Plan Plan: Assessment: #1. Oliguric acute kidney injury secondary to ischemic ATN secondary to hypotension as well as sepsis. Rule out ALLERGIC interstitial nephritis is he' s been on antibiotics for the last few weeks. Also rule out hydronephrosis. Creatinine 6.2 on admission and is up to 6.74 today. #2. Lower extremity cellulitis with osteomyelitis maintained on IV antibiotics. #3. Hyperphosphatemia secondary to acute kidney injury. #4. Rule out chronic kidney disease. Creatinine in July 2016 was near 1 but has been in the range of 1.5-2 from earlier this month. #5. UTI. #6. Altered mental status related to sepsis/UTI. Underlying uremia also a contributing factor. CT of the brain with no acute changes. Plan: Due to hypotension, I will give him 1 L bolus of 0.9 saline. Continue normal saline to be run at 100 mL an hour for maintenance fluids. Check urine culture. Maintain antibiotics. Check renal ultrasound. Add Renvela 800 mg 3 times daily with meals. With worsening mental status and renal failure, I will consult vascular surgery for a temporary dialysis catheter placement and plan for first treatment of hemodialysis today for 2 hours. Avoid nephrotoxic agents and hypotensive episodes. Depending on his hemodynamics, will possibly try to challenge him with IV Lasix tomorrow. Thank you for the consultation. I will continue to follow the patient with you during his hospital stay.
[2016-09-08] MEDS ORDERED: FUROSEMIDE 10 MG/ML 10 ML VIAL IV STA (09:57)
--- NOTE | 2016-09-08 10:24 | ECHOF ---
Referral Reason:chf MEASUREMENTS -------- HEIGHT: 180.3 cm WEIGHT: 149.7 kg BP: 98/66 RVIDd: 4.0 cm (< 3.3) IVSd: 1.4 cm (0.6 - 1.1) LVIDd: 5.0 cm (3.9 - 5.3) LVPWd: 1.3 cm (0.6 - 1.1) IVSs: 2.0 cm LVIDs: 3.8 cm LVPWs: 1.6 cm LA Diam: 4.6 cm (2.7 - 3.8) LAESV Index (A-L): 38.99 ml/m Ao Diam: 3.2 cm (2.0 - 3.7) AV Cusp: 1.7 cm (1.5 - 2.6) MV EXCURSION: 20.694 mm (> 18.000) MV EF SLOPE: 98 mm/s (70 - 150) EPSS: 1.0 cm AV maxP.83 mmHg AV meanP.09 mmHg RAP: 15.00 mmHg RVSP: 53.00 mmHg FINDINGS -------- This was a technically adequate study. The left ventricular size is normal. There is moderate concentric left ventricular hypertrophy. Overall left ventricular systolic function is low-normal with, an EF between 50 - 55 %. The right ventricle is moderately enlarged. LA is moderately dilated 34-39 ml/m2 The right atrium is normal in size. 1.5mg of Definity was utilized for enhancement of images There is mild to moderate aortic valve sclerosis. There is mild aortic stenosis present. Peak/mean gradient across the Aortic Valve is 15.83mmHg / 7.09mmHg. Mild mitral annular calcification present. Mild mitral regurgitation is present. Moderate tricuspid regurgitation present. There is moderate pulmonary hypertension. The right ventricular systolic pressure, as measured by Doppler, is 53.00mmHg. Trace/mild (physiologic) pulmonic regurgitation. The aortic root size is normal. The inferior vena cava is dilated with no significant inspiratory collapse which is consistent estimated right atrial pressure of >20 mmHg. The pericardium is normal. CONCLUSIONS -------- 1. This was a technically adequate study. 2. Peak/mean gradient across the Aortic Valve is 15.83mmHg / 7.09mmHg. 3. Mild mitral annular calcification present. 4. Mild mitral regurgitation is present. 5. Moderate tricuspid regurgitation present. 6. There is moderate pulmonary hypertension. 7. The right ventricular systolic pressure, as measured by Doppler, is 53.00mmHg. 8. Trace/mild (physiologic) pulmonic regurgitation. 9. The aortic root size is normal. 10. The inferior vena cava is dilated with no significant inspiratory collapse which is consistent estimated right atrial pressure of >20 mmHg. 11. The pericardium is normal. 12. The left ventricular size is normal. 13. There is moderate concentric left ventricular hypertrophy. 14. Overall left ventricular systolic function is low-normal with, an EF between 50 - 55 %. 15. The right ventricle is moderately enlarged. 16. LA is moderately dilated 34-39 ml/m2 17. 1.5mg of Definity was utilized for enhancement of images 18. There is mild to moderate aortic valve sclerosis. 19. There is mild aortic stenosis present. CRANE ASSEMBLER: Malissa Johnson RDCS
[2016-09-08] MEDS: FENOFIBRATE 160 MG TAB PO SCH (11:07)
[2016-09-08] MEDS: buPROPion XL 300 MG TAB.ER.24H PO SCH (11:09)
[2016-09-08] MEDS: ALLOPURINOL 100 MG TAB PO SCH (11:09)
[2016-09-08] MEDS: GABAPENTIN 300 MG CAP PO SCH ×2 (11:09→21:23)
[2016-09-08] MEDS: ASPIRIN 325 MG TAB PO SCH (11:09)
[2016-09-08] MEDS: METOPROLOL TARTRATE 50 MG TAB PO SCH ×2 (11:09→23:06)
[2016-09-08] MEDS: NICOTINE 21MG/24HR PATCH TRANSDERM SCH (11:10)
[2016-09-08] MEDS: NIACIN TR 500 MG CAPSULE.ER PO SCH (11:10)
[2016-09-08] MEDS: NYSTATIN 100,000 UNIT/ML SUSP 500,000 UNIT/5 ML CUP PO SCH ×4 (11:10→21:24)
[2016-09-08] MEDS: INSULIN GLARGINE 100 UNIT/ML 10 ML VIAL SQ SCH (11:10)
[2016-09-08] MEDS: FUROSEMIDE 40 MG TAB PO SCH (11:51)
[2016-09-08 12:08] LABS: Glucose,Whole Blood 101 mg/dL (75-99)
[2016-09-08] MEDS ORDERED: PHYTONADIONE ORAL 5 MG/5 ML ORAL.SYRG PO STA ×2 (12:56→22:25)
--- NOTE | 2016-09-08 13:24 | CONS ---
DATE OF CONSULTATION: Brandon is a 61-year-old gentleman who regularly sees Dr. Lopez in the outpatient setting, was in fact here 3 weeks ago, comes in mental status changes, leg edema and some shortness of breath with a diagnosis of congestive heart failure. Patient's history is significant for chronic atrial fibrillation, diabetes, hypertension, dyslipidemia, and peripheral vascular disease. The patient is a poor historian and somewhat to be evaluated by me, but I did the best I could. I reviewed his outpatient records. I reviewed recent hospitalization. I made a thorough and extensive review of available results. Past medical history is significant for chronic atrial fibrillation, hypertension, diabetes, dyslipidemia, and peripheral vascular disease. Medications at home include Tylenol, nystatin, Cardizem, Ultram, Lopressor 100 b.i.d., Neurontin 300 b.i.d., Lasix 40 b.i.d., Wellbutrin, Coumadin, Aldactone, Protonix, NicoDerm, niacin, insulin, Proscar, TriCor, Zyloprim. Allergies are as charted include Bactrim. Family history is negative for premature coronary artery disease. SOCIAL HISTORY: Denies smoking or EtOH abuse. REVIEW OF SYSTEMS: I am not able to obtain from the patient who appears somewhat confused, but I reviewed the chart. On exam, afebrile. Heart rate is 60 beats per minute, blood pressure is 81/50, respirations 18. Chest exam reveals diminished air entry at the bases. Heart exam reveals first and second heart sounds, irregular rhythm, and a systolic murmur at the left lower sternal border. Abdomen is soft. Exam of the extremities reveals bilateral pitting edema, chronic stasis changes and diminished pulses. Echocardiogram shows normal LV function with moderate to severe pulmonary hypertension and moderate tricuspid regurgitation with mild aortic stenosis. Labs show a hemoglobin of 11, platelet count is 498. INR is elevated at 4.3. Creatinine 6.7. BUN is 70. ASSESSMENT: 1. Chronic atrial fibrillation with controlled ventricular rate. 2. Acute onset renal failure. 3. Mental status changes. 4. Lower extremity cellulitis. PLAN: I will continue current cardiac medications, keep an eye on his low blood pressures. Reviewed his echo results. Hold Coumadin. Further interventions based on his response.
[2016-09-08] MEDS: SEVELAMER 800 MG TAB PO SCH ×2 (14:13→17:46)
[2016-09-08] MEDS: CYANOCOBALAMIN 500 MCG TAB PO SCH (14:13)
--- NOTE | 2016-09-08 14:38 | US ---
EXAMINATION TYPE: US kidneys/renal and bladder DATE OF EXAM: 09/08/2016 COMPARISON: US 2016 CLINICAL HISTORY: [email or web address]. EXAM MEASUREMENTS: Right Kidney: 11.4 x 6.4 x 5.4 cm Left Kidney: 11.6 x 5.2 x 4.9 cm Post Void Residual Volume: Not completed d/t patient having felipe catheter in place. mL Right Kidney: Difficult to evaluate d/t large patient size, inability to change positions, and scanni ng patient in chair. No obvious masses seen. No obvious hydronephrosis seen. ? shadowing within kidne y may be tiny stones. Left Kidney: Difficult to evaluate d/t large patient size, inability to change positions, and scannin g patient in chair. Not seen well overall. Bladder: Not completed d/t patient having felipe catheter in place. Bilateral Jets seen: Not completed d/t patient having felipe catheter in place. Normal Post Void Residual: Not completed d/t patient having felipe catheter in place. Cortical medullary differentiation is maintained bilaterally. There is poor visualization of the left kidney. IMPRESSION: Exam is limited, no evident hydronephrosis
--- NOTE | 2016-09-08 15:09 | P.HPIM ---
History of Present Illness H&P Date: 09/08/16 Chief Complaint: Altered mental status This is a history of physical 61-year-old white male who was recently discharged last week for severe sepsis. He has an underlying history of fairly well-controlled diabetes with atrial fibrillation but his main concern has been chronic cellulitis she's developed altered mental status at the [facility]. Initial laboratory findings show acute renal failure. He is now admitted and going to have dialysis catheter placed tomorrow. Nephrology and cardiology consulted. No significant fever or chills. No nausea or vomiting. He has been on antibiotics for cellulitis and presumed osteomyelitis. Review of Systems Constitutional: Denies chills, Denies fever Eyes: denies blurred vision, denies pain Ears, nose, mouth and throat: Denies headache, Denies sore throat Cardiovascular: Denies chest pain, Denies shortness of breath Respiratory: Denies cough Gastrointestinal: Denies abdominal pain, Denies diarrhea, Denies nausea, Denies vomiting Past Medical History Past Medical History: Atrial Fibrillation, Diabetes Mellitus, Eye Disorder, Hearing Disorder / Deafness, Hyperlipidemia, Hypertension, Osteoarthritis (OA), Prostate Disorder, Sleep Apnea/CPAP/BIPAP, Vascular Disorder Additional Past Medical History / Comment(s): Pt fell 01/06/16 R humeral fracture. Other HX: NIDDM, irritable bowel syndrome, numerous wounds bilateral legs and feet and an abdominal wound after previous hernia surgery with mesh - has been tx in wound center and has had several debridements, currently being treated in wound center for bilateral lower leg ulcers, charcot Lfoot, hx of diabetic villareal grade 2 bilateral foot ulcers, abdominal wall ulceration with I&D, urinary calculus., BPH, bilateral hands and feet peripheral neuropathy, L eye astigmatism, edentulous. History of Any Multi-Drug Resistant Organisms: MRSA, VRE Date of last positivie culture/infection: 08/19/16 VRE; 02/15/16 MRSA MDRO Source:: Heel VRE; Legs-MRSA Past Surgical History: Bladder Surgery, Hernia Repair, Tonsillectomy Additional Past Surgical History / Comment(s): I and D abdominal wall ulcer s/p abdominal hernia repair with mesh-infected post op and mesh exposed, wound center tx for bilateral feet ulcers-healed and discharged 03/25/14, current wound center tx for bilateral lower leg ulcers, picc line insertion and removal , cystoscopy which was unsuccessful for removing bladder stone. Past Anesthesia/Blood Transfusion Reactions: No Reported Reaction Past Psychological History: Anxiety, Depression Additional Psychological History / Comment(s): Remains an ongoing daily tobacco smoker. Does have history of occasional alcohol use. Denies difficulty with alcohol use. Denies recreational drug use.He is on medical senior living.To begin travels. No animalexposures. Ambulates with cane. Not able to drive as of late Smoking Status: Current some day smoker Past Alcohol Use History: Occasional Additional Past Alcohol Use History / Comment(s): Pt states he started smoking in 1972 and is about a ppd smoker. Pt states he drinks every couple days- a couple whiskeys. Past Drug Use History: None Reported - Past Family History Brother(s) Family Medical History: Cancer Additional Family Medical History / Comment(s): Breast cancer Father Family Medical History: Diabetes Mellitus Additional Family Medical History / Comment(s): Father of a brain tumor in his early 80s Mother Family Medical History: No Reported History Additional Family Medical History / Comment(s): Still living. Medications and Allergies Home Medications Medication Instructions Recorded Confirmed Type Fenofibrate Nanocrystallized 145 mg PO DAILY 07/27/16 09/07/16 History [Tricor] Finasteride [Proscar] 5 mg PO HS 07/27/16 09/07/16 History Gabapentin [Neurontin] 300 mg PO BID 07/27/16 09/07/16 History Metoprolol Tartrate [Lopressor] 100 mg PO BID 07/27/16 09/07/16 History Niacin [Niacin ER] 500 mg PO DAILY 07/27/16 09/07/16 History Allopurinol [Zyloprim] 100 mg PO DAILY 08/15/16 09/07/16 History Furosemide [Lasix] 40 mg PO BID 08/15/16 09/07/16 History Spironolactone [Aldactone] 25 mg PO DAILY 08/15/16 09/07/16 History buPROPion HCL [Wellbutrin XL] 300 mg PO DAILY 08/15/16 09/07/16 History Diltiazem Oral [Cardizem*] 60 mg PO Q6HR 09/07/16 09/07/16 History traMADol HCl [Ultram] 50 mg PO Q8HR 09/07/16 09/07/16 History Allergies Allergy/AdvReac Type Severity Reaction Status Date / Time sulfamethoxazole Allergy Rash/Hives Verified 09/07/16 23:47 [From Bactrim] trimethoprim [From Bactrim] Allergy Rash/Hives Verified 09/07/16 23:47 Physical Exam Vitals: Vital Signs Temp Pulse Pulse Resp BP BP Pulse Ox 09/08/16 08:00 96.5 F L 60 81/51 94 L 09/08/16 04:00 97.4 F L 68 18 98/66 90 L 09/08/16 00:00 96.4 F L 66 18 113/71 92 L 09/07/16 22:26 96.9 F L 60 18 111/65 96 09/07/16 22:22 96.4 F L 63 18 113/71 92 L 09/07/16 21:28 63 18 120/65 96 09/07/16 20:57 96.7 F L 61 18 122/78 95 09/07/16 19:13 97.5 F L 61 18 106/65 96 09/07/16 18:32 54 L 18 113/78 96 09/07/16 17:52 96.9 F L 59 L 18 101/66 97 Intake and Output 09/07/16 09/08/16 09/08/16 22:59 06:59 14:59 Intake Total 1150 0 Balance 1150 0 Intake: Intake, IV Titration 800 Amount Sodium Chloride 0.9% 1, 800 000 ml @ 100 mls/hr IV . Q10H ONE Rx#:[id number] Oral 350 0 Other: Voiding Method Indwelling Catheter Indwelling Catheter # Voids 150 # Bowel Movements 0 Weight 150 kg 150 kg 150 kg Patient Weight 09/09/16 06:59 Weight 150 kg - Constitutional General appearance: obese - EENT Eyes: no abnormal pupil - Neck Neck: no lymphadenopathy - Respiratory Respiratory: bilateral: CTA - Cardiovascular Rhythm: regular Heart sounds: normal: S1, S2 - Gastrointestinal General gastrointestinal: soft, no tenderness - Integumentary Integumentary: no rash - Neurologic Neurologic: CNII-XII intact - Psychiatric Psychiatric: A&O x's 3, no intact judgment & insight Results CBC & Chem 7: 09/08/16 05:46 09/08/16 05:46 Labs: Abnormal Lab Results - Last 24 Hours (Table) 0509/07/16 09/07/16 Range/Units 17:56 17:56 17:56 WBC (3.8-10.6) k/uL RBC (4.30-5.90) m/uL Hgb (13.0-17.5) gm/dL Hct (39.0-53.0) % MCHC (31.0-37.0) g/dL RDW (11.5-15.5) % Plt Count (150-450) k/uL Neutrophils # (1.3-7.7) k/uL PT (9.0-12.0) sec APTT (22.0-30.0) sec Sodium (137-145) mmol/L Potassium (3.5-5.1) mmol/L Chloride (98-107) mmol/L BUN (9-20) mg/dL Creatinine (0.66-1.25) mg/dL Glucose (74-99) mg/dL POC Glucose (mg/dL) 68 L (75-99) mg/dL Calcium (8.4-10.2) mg/dL Phosphorus (2.5-4.5) mg/dL Ammonia 35 H (<30) umol/L Total Creatine Kinase 26 L (55-170) U/L CK-MB (CK-2) (0.0-2.4) ng/mL Albumin (3.5-5.0) g/dL Urine Protein (Negative) Urine Blood (Negative) Ur Leukocyte Esterase (Negative) Urine RBC (0-5) /hpf Urine WBC (0-5) /hpf Urine WBC Clumps (None) /hpf Hyaline Casts (0-2) /lpf Urine Mucus (None) /hpf 09/07/16 09/07/16 09/07/16 Range/Units 17:56 17:56 17:56 WBC 11.6 H (3.8-10.6) k/uL RBC 3.82 L (4.30-5.90) m/uL Hgb 11.4 L (13.0-17.5) gm/dL Hct 37.5 L (39.0-53.0) % MCHC 30.4 L (31.0-37.0) g/dL RDW 16.6 H (11.5-15.5) % Plt Count 465 H (150-450) k/uL Neutrophils # 8.8 H (1.3-7.7) k/uL PT 37.8 H (9.0-12.0) sec APTT 56.9 H (22.0-30.0) sec Sodium 132 L (137-145) mmol/L Potassium 5.5 H (3.5-5.1) mmol/L Chloride 92 L (98-107) mmol/L BUN 71 H (9-20) mg/dL Creatinine 6.49 H* (0.66-1.25) mg/dL Glucose 70 L (74-99) mg/dL POC Glucose (mg/dL) (75-99) mg/dL Calcium (8.4-10.2) mg/dL Phosphorus (2.5-4.5) mg/dL Ammonia (<30) umol/L Total Creatine Kinase (55-170) U/L CK-MB (CK-2) (0.0-2.4) ng/mL Albumin 3.4 L (3.5-5.0) g/dL Urine Protein (Negative) Urine Blood (Negative) Ur Leukocyte Esterase (Negative) Urine RBC (0-5) /hpf Urine WBC (0-5) /hpf Urine WBC Clumps (None) /hpf Hyaline Casts (0-2) /lpf Urine Mucus (None) /hpf 09/07/16 09/08/16 09/08/16 Range/Units 20:45 00:28 05:46 WBC 11.2 H (3.8-10.6) k/uL RBC 3.68 L (4.30-5.90) m/uL Hgb 11.0 L (13.0-17.5) gm/dL Hct 36.3 L (39.0-53.0) % MCHC 30.2 L (31.0-37.0) g/dL RDW 16.6 H (11.5-15.5) % Plt Count 498 H (150-450) k/uL Neutrophils # 8.2 H (1.3-7.7) k/uL PT (9.0-12.0) sec APTT (22.0-30.0) sec Sodium (137-145) mmol/L Potassium (3.5-5.1) mmol/L Chloride (98-107) mmol/L BUN (9-20) mg/dL Creatinine (0.66-1.25) mg/dL Glucose (74-99) mg/dL POC Glucose (mg/dL) (75-99) mg/dL Calcium (8.4-10.2) mg/dL Phosphorus (2.5-4.5) mg/dL Ammonia (<30) umol/L Total Creatine Kinase 22 L (55-170) U/L CK-MB (CK-2) 2.7 H* (0.0-2.4) ng/mL Albumin (3.5-5.0) g/dL Urine Protein 3+ H (Negative) Urine Blood Moderate H (Negative) Ur Leukocyte Esterase Large H (Negative) Urine RBC 63 H (0-5) /hpf Urine WBC 90 H (0-5) /hpf Urine WBC Clumps Many H (None) /hpf Hyaline Casts 3 H (0-2) /lpf Urine Mucus Rare H (None) /hpf 09/08/16 09/08/16 09/08/16 Range/Units 05:46 05:46 05:46 WBC (3.8-10.6) k/uL RBC (4.30-5.90) m/uL Hgb (13.0-17.5) gm/dL Hct (39.0-53.0) % MCHC (31.0-37.0) g/dL RDW (11.5-15.5) % Plt Count (150-450) k/uL Neutrophils # (1.3-7.7) k/uL PT 42.4 H (9.0-12.0) sec APTT (22.0-30.0) sec Sodium 135 L (137-145) mmol/L Potassium (3.5-5.1) mmol/L Chloride 96 L (98-107) mmol/L BUN 70 H (9-20) mg/dL Creatinine 6.74 H* (0.66-1.25) mg/dL Glucose 61 L (74-99) mg/dL POC Glucose (mg/dL) (75-99) mg/dL Calcium 8.0 L (8.4-10.2) mg/dL Phosphorus 9.2 H* (2.5-4.5) mg/dL Ammonia (<30) umol/L Total Creatine Kinase 23 L (55-170) U/L CK-MB (CK-2) (0.0-2.4) ng/mL Albumin (3.5-5.0) g/dL Urine Protein (Negative) Urine Blood (Negative) Ur Leukocyte Esterase (Negative) Urine RBC (0-5) /hpf Urine WBC (0-5) /hpf Urine WBC Clumps (None) /hpf Hyaline Casts (0-2) /lpf Urine Mucus (None) /hpf 09/08/16 09/08/16 Range/Units 05:59 12:01 WBC (3.8-10.6) k/uL RBC (4.30-5.90) m/uL Hgb (13.0-17.5) gm/dL Hct (39.0-53.0) % MCHC (31.0-37.0) g/dL RDW (11.5-15.5) % Plt Count (150-450) k/uL Neutrophils # (1.3-7.7) k/uL PT (9.0-12.0) sec APTT (22.0-30.0) sec Sodium (137-145) mmol/L Potassium (3.5-5.1) mmol/L Chloride (98-107) mmol/L BUN (9-20) mg/dL Creatinine (0.66-1.25) mg/dL Glucose (74-99) mg/dL POC Glucose (mg/dL) 59 L 101 H (75-99) mg/dL Calcium (8.4-10.2) mg/dL Phosphorus (2.5-4.5) mg/dL Ammonia (<30) umol/L Total Creatine Kinase (55-170) U/L CK-MB (CK-2) (0.0-2.4) ng/mL Albumin (3.5-5.0) g/dL Urine Protein (Negative) Urine Blood (Negative) Ur Leukocyte Esterase (Negative) Urine RBC (0-5) /hpf Urine WBC (0-5) /hpf Urine WBC Clumps (None) /hpf Hyaline Casts (0-2) /lpf Urine Mucus (None) /hpf Thrombosis Risk Factor Assmnt - Choose All That Apply Each Factor Represents 1 point: Heart failure (<1month), Medical pt on bed rest , Obesity (BMI >25), Serious lung disease incl. pneumonia (< 1month), Swollen legs (current) Each Risk Factor Represents 2 Points: Age 61-74 years, Central venous access Thrombosis Risk Factor Assessment Total Risk Factor Score: 9 Thrombosis Risk Factor Assessment Level: High Risk Assessment and Plan (1) Acute kidney injury Status: Acute (2) Cellulitis of right leg Status: Acute (3) Chronic a-fib Status: Acute (4) Congestive heart failure Status: Acute (5) Generalized weakness Status: Acute (6) Pulmonary HTN Status: Acute Plan: The patient will be placed on emergent dialysis after catheters placed. Nephrology has been consulted. Check CBC and CP in a.m. Reconcile home medications. See orders otherwise. Prognosis is guarded at this time secondary to multiple comorbidities including atrial fibrillation, diabetes, history of sepsis and chronic cellulitis with ostomy his lower extremities. Time with Patient: Less than 30
--- NOTE | 2016-09-08 16:18 | P.GSCN ---
History of Present Illness History of present illness: 61-year-old white male, patient is known to me from the past patient has history of recurrent cellulitis with venous stasis ulcer both lower extremity patient is known to me from the wound clinic I was consulted patient has developed renal failure for placement of the dialysis catheter patient has history of atrial fibrillation on Coumadin his INR is 4. and care has been K given we will arrange for the dialysis catheter Medical history history of diabetes, history of 4 chronic renal failure, history of chronic venous hypertension, Neck examination neck is supple no bruit appreciated chest examination chest has a rhonchi bilateral Abdomen distended nontender no peritoneal sign Lower extremity patient has a marked swelling and also has a venous stasis ulcer bilateral Plan is placement of a dialysis catheter we will follow with you thank you Past Medical History Past Medical History: Atrial Fibrillation, Diabetes Mellitus, Eye Disorder, Hearing Disorder / Deafness, Hyperlipidemia, Hypertension, Osteoarthritis (OA), Prostate Disorder, Sleep Apnea/CPAP/BIPAP, Vascular Disorder Additional Past Medical History / Comment(s): Pt fell 01/06/16 R humeral fracture. Other HX: NIDDM, irritable bowel syndrome, numerous wounds bilateral legs and feet and an abdominal wound after previous hernia surgery with mesh - has been tx in wound center and has had several debridements, currently being treated in wound center for bilateral lower leg ulcers, charcot Lfoot, hx of diabetic villareal grade 2 bilateral foot ulcers, abdominal wall ulceration with I&D, urinary calculus., BPH, bilateral hands and feet peripheral neuropathy, L eye astigmatism, edentulous. History of Any Multi-Drug Resistant Organisms: MRSA, VRE Year Discovered:: 08/19/16 VRE; 02/15/16 MRSA MDRO Source:: Heel VRE; Legs-MRSA Past Surgical History: Bladder Surgery, Hernia Repair, Tonsillectomy Additional Past Surgical History / Comment(s): I and D abdominal wall ulcer s/p abdominal hernia repair with mesh-infected post op and mesh exposed, wound center tx for bilateral feet ulcers-healed and discharged 03/25/14, current wound center tx for bilateral lower leg ulcers, picc line insertion and removal , cystoscopy which was unsuccessful for removing bladder stone. Past Anesthesia/Blood Transfusion Reactions: No Reported Reaction Past Psychological History: Anxiety, Depression Additional Psychological History / Comment(s): Remains an ongoing daily tobacco smoker. Does have history of occasional alcohol use. Denies difficulty with alcohol use. Denies recreational drug use.He is on medical skilled nursing.To begin travels. No animalexposures. Ambulates with cane. Not able to drive as of late Smoking Status: Current some day smoker Past Alcohol Use History: Occasional Additional Past Alcohol Use History / Comment(s): Pt states he started smoking in 1972 and is about a ppd smoker. Pt states he drinks every couple days- a couple whiskeys. Past Drug Use History: None Reported - Past Family History Brother(s) Family Medical History: Cancer Additional Family Medical History / Comment(s): Breast cancer Father Family Medical History: Diabetes Mellitus Additional Family Medical History / Comment(s): Father of a brain tumor in his early 80s Mother Family Medical History: No Reported History Additional Family Medical History / Comment(s): Still living. Medications and Allergies Home Medications Medication Instructions Recorded Confirmed Type Fenofibrate Nanocrystallized 145 mg PO DAILY 07/27/16 09/07/16 History [Tricor] Finasteride [Proscar] 5 mg PO HS 07/27/16 09/07/16 History Gabapentin [Neurontin] 300 mg PO BID 07/27/16 09/07/16 History Metoprolol Tartrate [Lopressor] 100 mg PO BID 07/27/16 09/07/16 History Niacin [Niacin ER] 500 mg PO DAILY 07/27/16 09/07/16 History Allopurinol [Zyloprim] 100 mg PO DAILY 08/15/16 09/07/16 History Furosemide [Lasix] 40 mg PO BID 08/15/16 09/07/16 History Spironolactone [Aldactone] 25 mg PO DAILY 08/15/16 09/07/16 History buPROPion HCL [Wellbutrin XL] 300 mg PO DAILY 08/15/16 09/07/16 History Diltiazem Oral [Cardizem*] 60 mg PO Q6HR 09/07/16 09/07/16 History traMADol HCl [Ultram] 50 mg PO Q8HR 09/07/16 09/07/16 History Allergies Allergy/AdvReac Type Severity Reaction Status Date / Time sulfamethoxazole Allergy Rash/Hives Verified 09/07/16 23:47 [From Bactrim] trimethoprim [From Bactrim] Allergy Rash/Hives Verified 09/07/16 23:47 Surgical - Exam Vital Signs Temp Pulse Resp BP Pulse Ox 96.9 F L 59 L 18 101/66 97 09/07/16 17:52 09/07/16 17:52 09/07/16 17:52 09/07/16 17:52 09/07/16 17:52 Results - Labs 09/08/16 05:46 09/08/16 05:46 Abnormal Lab Results - Last 24 Hours (Table) 09/07/16 09/07/16 09/07/16 Range/Units 17:56 17:56 17:56 WBC (3.8-10.6) k/uL RBC (4.30-5.90) m/uL Hgb (13.0-17.5) gm/dL Hct (39.0-53.0) % MCHC (31.0-37.0) g/dL RDW (11.5-15.5) % Plt Count (150-450) k/uL Neutrophils # (1.3-7.7) k/uL PT (9.0-12.0) sec APTT (22.0-30.0) sec Sodium (137-145) mmol/L Potassium (3.5-5.1) mmol/L Chloride (98-107) mmol/L BUN (9-20) mg/dL Creatinine (0.66-1.25) mg/dL Glucose (74-99) mg/dL POC Glucose (mg/dL) 68 L (75-99) mg/dL Calcium (8.4-10.2) mg/dL Phosphorus (2.5-4.5) mg/dL Ammonia 35 H (<30) umol/L Total Creatine Kinase 26 L (55-170) U/L CK-MB (CK-2) (0.0-2.4) ng/mL Albumin (3.5-5.0) g/dL Urine Protein (Negative) Urine Blood (Negative) Ur Leukocyte Esterase (Negative) Urine RBC (0-5) /hpf Urine WBC (0-5) /hpf Urine WBC Clumps (None) /hpf Hyaline Casts (0-2) /lpf Urine Mucus (None) /hpf 09/07/16 09/07/16 09/07/16 Range/Units 17:56 17:56 17:56 WBC 11.6 H (3.8-10.6) k/uL RBC 3.82 L (4.30-5.90) m/uL Hgb 11.4 L (13.0-17.5) gm/dL Hct 37.5 L (39.0-53.0) % MCHC 30.4 L (31.0-37.0) g/dL RDW 16.6 H (11.5-15.5) % Plt Count 465 H (150-450) k/uL Neutrophils # 8.8 H (1.3-7.7) k/uL PT 37.8 H (9.0-12.0) sec APTT 56.9 H (22.0-30.0) sec Sodium 132 L (137-145) mmol/L Potassium 5.5 H (3.5-5.1) mmol/L Chloride 92 L (98-107) mmol/L BUN 71 H (9-20) mg/dL Creatinine 6.49 H* (0.66-1.25) mg/dL Glucose 70 L (74-99) mg/dL POC Glucose (mg/dL) (75-99) mg/dL Calcium (8.4-10.2) mg/dL Phosphorus (2.5-4.5) mg/dL Ammonia (<30) umol/L Total Creatine Kinase (55-170) U/L CK-MB (CK-2) (0.0-2.4) ng/mL Albumin 3.4 L (3.5-5.0) g/dL Urine Protein (Negative) Urine Blood (Negative) Ur Leukocyte Esterase (Negative) Urine RBC (0-5) /hpf Urine WBC (0-5) /hpf Urine WBC Clumps (None) /hpf Hyaline Casts (0-2) /lpf Urine Mucus (None) /hpf 09/07/16 09/08/16 09/08/16 Range/Units 20:45 00:28 05:46 WBC 11.2 H (3.8-10.6) k/uL RBC 3.68 L (4.30-5.90) m/uL Hgb 11.0 L (13.0-17.5) gm/dL Hct 36.3 L (39.0-53.0) % MCHC 30.2 L (31.0-37.0) g/dL RDW 16.6 H (11.5-15.5) % Plt Count 498 H (150-450) k/uL Neutrophils # 8.2 H (1.3-7.7) k/uL PT (9.0-12.0) sec APTT (22.0-30.0) sec Sodium (137-145) mmol/L Potassium (3.5-5.1) mmol/L Chloride (98-107) mmol/L BUN (9-20) mg/dL Creatinine (0.66-1.25) mg/dL Glucose (74-99) mg/dL POC Glucose (mg/dL) (75-99) mg/dL Calcium (8.4-10.2) mg/dL Phosphorus (2.5-4.5) mg/dL Ammonia (<30) umol/L Total Creatine Kinase 22 L (55-170) U/L CK-MB (CK-2) 2.7 H* (0.0-2.4) ng/mL Albumin (3.5-5.0) g/dL Urine Protein 3+ H (Negative) Urine Blood Moderate H (Negative) Ur Leukocyte Esterase Large H (Negative) Urine RBC 63 H (0-5) /hpf Urine WBC 90 H (0-5) /hpf Urine WBC Clumps Many H (None) /hpf Hyaline Casts 3 H (0-2) /lpf Urine Mucus Rare H (None) /hpf 09/08/16 09/08/16 09/08/16 Range/Units 05:46 05:46 05:46 WBC (3.8-10.6) k/uL RBC (4.30-5.90) m/uL Hgb (13.0-17.5) gm/dL Hct (39.0-53.0) % MCHC (31.0-37.0) g/dL RDW (11.5-15.5) % Plt Count (150-450) k/uL Neutrophils # (1.3-7.7) k/uL PT 42.4 H (9.0-12.0) sec APTT (22.0-30.0) sec Sodium 135 L (137-145) mmol/L Potassium (3.5-5.1) mmol/L Chloride 96 L (98-107) mmol/L BUN 70 H (9-20) mg/dL Creatinine 6.74 H* (0.66-1.25) mg/dL Glucose 61 L (74-99) mg/dL POC Glucose (mg/dL) (75-99) mg/dL Calcium 8.0 L (8.4-10.2) mg/dL Phosphorus 9.2 H* (2.5-4.5) mg/dL Ammonia (<30) umol/L Total Creatine Kinase 23 L (55-170) U/L CK-MB (CK-2) (0.0-2.4) ng/mL Albumin (3.5-5.0) g/dL Urine Protein (Negative) Urine Blood (Negative) Ur Leukocyte Esterase (Negative) Urine RBC (0-5) /hpf Urine WBC (0-5) /hpf Urine WBC Clumps (None) /hpf Hyaline Casts (0-2) /lpf Urine Mucus (None) /hpf 09/08/16 09/08/16 Range/Units 05:59 12:01 WBC (3.8-10.6) k/uL RBC (4.30-5.90) m/uL Hgb (13.0-17.5) gm/dL Hct (39.0-53.0) % MCHC (31.0-37.0) g/dL RDW (11.5-15.5) % Plt Count (150-450) k/uL Neutrophils # (1.3-7.7) k/uL PT (9.0-12.0) sec APTT (22.0-30.0) sec Sodium (137-145) mmol/L Potassium (3.5-5.1) mmol/L Chloride (98-107) mmol/L BUN (9-20) mg/dL Creatinine (0.66-1.25) mg/dL Glucose (74-99) mg/dL POC Glucose (mg/dL) 59 L 101 H (75-99) mg/dL Calcium (8.4-10.2) mg/dL Phosphorus (2.5-4.5) mg/dL Ammonia (<30) umol/L Total Creatine Kinase (55-170) U/L CK-MB (CK-2) (0.0-2.4) ng/mL Albumin (3.5-5.0) g/dL Urine Protein (Negative) Urine Blood (Negative) Ur Leukocyte Esterase (Negative) Urine RBC (0-5) /hpf Urine WBC (0-5) /hpf Urine WBC Clumps (None) /hpf Hyaline Casts (0-2) /lpf Urine Mucus (None) /hpf Diabetes panel 09/07/16 09/08/16 Range/Units 17:56 05:46 Sodium 132 L 135 L (137-145) mmol/L Potassium 5.5 H 4.5 (3.5-5.1) mmol/L Chloride 92 L 96 L (98-107) mmol/L Carbon Dioxide 24 24 (22-30) mmol/L BUN 71 H 70 H (9-20) mg/dL Creatinine 6.49 H* 6.74 H* (0.66-1.25) mg/dL Glucose 70 L 61 L (74-99) mg/dL Calcium 8.5 8.0 L (8.4-10.2) mg/dL AST 26 (17-59) U/L ALT 25 (21-72) U/L Alkaline Phosphatase 102 (38-126) U/L Total Protein 7.2 (6.3-8.2) g/dL Albumin 3.4 L (3.5-5.0) g/dL Calcium panel 09/07/16 09/08/16 Range/Units 17:56 05:46 Calcium 8.5 8.0 L (8.4-10.2) mg/dL Phosphorus 9.2 H* (2.5-4.5) mg/dL Albumin 3.4 L (3.5-5.0) g/dL Pituitary panel 09/07/16 09/08/16 Range/Units 17:56 05:46 Sodium 132 L 135 L (137-145) mmol/L Potassium 5.5 H 4.5 (3.5-5.1) mmol/L Chloride 92 L 96 L (98-107) mmol/L Carbon Dioxide 24 24 (22-30) mmol/L BUN 71 H 70 H (9-20) mg/dL Creatinine 6.49 H* 6.74 H* (0.66-1.25) mg/dL Glucose 70 L 61 L (74-99) mg/dL Calcium 8.5 8.0 L (8.4-10.2) mg/dL Adrenal panel 09/07/16 09/08/16 Range/Units 17:56 05:46 Sodium 132 L 135 L (137-145) mmol/L Potassium 5.5 H 4.5 (3.5-5.1) mmol/L Chloride 92 L 96 L (98-107) mmol/L Carbon Dioxide 24 24 (22-30) mmol/L BUN 71 H 70 H (9-20) mg/dL Creatinine 6.49 H* 6.74 H* (0.66-1.25) mg/dL Glucose 70 L 61 L (74-99) mg/dL Calcium 8.5 8.0 L (8.4-10.2) mg/dL Total Bilirubin 1.3 (0.2-1.3) mg/dL AST 26 (17-59) U/L ALT 25 (21-72) U/L Alkaline Phosphatase 102 (38-126) U/L Total Protein 7.2 (6.3-8.2) g/dL Albumin 3.4 L (3.5-5.0) g/dL
[2016-09-08 17:07] LABS: Glucose,Whole Blood 148 mg/dL (75-99)
[2016-09-08] MEDS: THIAMINE 100 MG TAB PO SCH ×2 (17:45→21:23)
[2016-09-08 20:56] LABS: Glucose,Whole Blood 100 mg/dL (75-99)
[2016-09-08] MEDS: FINASTERIDE 5 MG TAB PO SCH (21:24)
[2016-09-08 21:49] LABS: INR 3.4 (<1.1)
[2016-09-08 21:50] LABS: Prothrombin Time 33.3 sec (9.0-12.0)
[2016-09-08] MEDS: LORazepam 2 MG/ML SYRINGE IV PRN (22:47)
[2016-09-09] MEDS: traMADol 50 MG TAB PO SCH ×4 (00:23→23:00)
[2016-09-09] MEDS: DILTIAZEM ORAL 60 MG TAB PO SCH ×3 (00:24→18:14)
[2016-09-09] MEDS ORDERED: LORazepam 2 MG/ML SYRINGE IV STA (02:46)
[2016-09-09] MEDS: PANTOPRAZOLE 40 MG TABLET PO SCH (06:05)
[2016-09-09] MEDS: SEVELAMER 800 MG TAB PO SCH ×3 (06:05→18:14)
[2016-09-09 06:19] LABS: Glucose,Whole Blood 114 mg/dL (75-99)
[2016-09-09 06:57] LABS: Anisocytosis Slight; Basophils # (A) 0.1 k/uL (0-0.2); Basophils % (A) 1 %; CH 29.6; CHCM 30.1; Eosinophils # (A) 0.5 k/uL (0-0.7); Eosinophils % (A) 4 %; HCT 39.4 % (39.0-53.0); HDW 3.13; HGB 11.6 gm/dL (13.0-17.5); Hypochromasia Marked; Luc # (Auto) 0.31; Luc % (Auto) 3; Lymphocytes # (A) 1.2 k/uL (1.0-4.8); Lymphocytes % (A) 12 %; MCH 29.1 pg (25.0-35.0); MCHC 29.3 g/dL (31.0-37.0); MCV 99.1 fL (80.0-100.0); Macrocytosis Slight; Monocytes # (A) 0.5 k/uL (0-1.0); Monocytes % (A) 5 %; Neutrophils # (A) 7.8 k/uL (1.3-7.7); Neutrophils % (A) 75 %; RBC 3.98 m/uL (4.30-5.90); WBC 10.4 k/uL (3.8-10.6); WBC (Perox) 10.34
[2016-09-09 07:08] LABS: Calcium 7.9 mg/dL (8.4-10.2); Potassium 4.8 mmol/L (3.5-5.1)
[2016-09-09 07:30] LABS: INR 2.5 (<1.1); Prothrombin Time 23.9 sec (9.0-12.0)
[2016-09-09] MEDS ORDERED: fentaNYL (PF) 50 MCG/ML 2 ML AMP ONE (07:37)
[2016-09-09] MEDS ORDERED: LIDOCAINE 2% INJ 20 MG/ML SQ ONE (07:38)
[2016-09-09] MEDS ORDERED: fentaNYL (PF) 50 MCG/ML 2 ML AMP IV ONE (07:42)
[2016-09-09] MEDS ORDERED: HEPARIN SODIUM 1,000 UNIT/ML VIAL IV ONE (07:49)
[2016-09-09] MEDS: NICOTINE 21MG/24HR PATCH TRANSDERM SCH (09:11)
[2016-09-09] MEDS: DAPTOmycin 500 MG in SODIUM CHLORIDE 0.9% 50 ML IV SCH (09:14)
[2016-09-09] MEDS ORDERED: HEPARIN SODIUM,PORCINE 5,000 UNIT/ML 1 ML VIAL ONE (11:00)
--- NOTE | 2016-09-09 11:33 | IR ---
EXAMINATION TYPE: IR cvc insert central tunneled DATE OF EXAM: 09/09/2016 COMPARISON: NONE HISTORY: Hemodialysis catheter placement Fluoroscopy support supplied to the referring clinician. See dictated report from vascular surgery, 0.6 minutes fluoroscopy time
[2016-09-09 11:56] LABS: Glucose,Whole Blood 102 mg/dL (75-99)
--- NOTE | 2016-09-09 12:21 | P.PN ---
Subjective Principal diagnosis: Acute kidney injury This is a 61-year-old gentleman who follows with Dr. Lopez in the office. He presented to the hospital with acute kidney injury, cellulitis, and hypotension. He was seen in consultation yesterday by Dr. Erwin. Patient was apparently quite confused yesterday, today he is much more alert. He underwent hemodialysis catheter placement today. He will have his first dialysis treatment today as well. Creatinine is 7.03 and BUN is 69. Blood pressure this morning 106/60. His heart rate at times is also noted to be in the low 50s , beta bella was held. Echocardiogram with Doppler study was performed which revealed an ejection fraction of 50-55%. Objective - Vital Signs Vital signs: Vital Signs Temp 97.7 F 09/09/16 08:00 Pulse 59 L 09/09/16 08:00 Resp 18 09/09/16 05:57 BP 95/53 09/09/16 08:00 Pulse Ox 93 L 09/09/16 08:33 Intake & Output 09/08/16 09/09/16 09/09/16 18:59 06:59 18:59 Intake Total 1020 1200 Output Total 300 Balance 1020 900 Weight 150 kg 149.5 kg Intake: IV 1200 0.9 1200 Intake, IV Titration 900 Amount Sodium Chloride 0.9% 1, 800 000 ml @ 100 mls/hr IV . Q10H ONE Rx#:[id number] cefTRIAXone 1,000 mg In 100 Sodium Chloride 0.9% 50 ml @ 100 mls/hr IVPB DAILY [facility] Rx#:[id number] Oral 120 Output: Urine 300 Other: Voiding Method Indwelling Catheter Indwelling Catheter Indwelling Catheter # Bowel Movements 0 - Exam PHYSICAL EXAMINATION: HEENT: Head is atraumatic, normocephalic. Pupils equal, round. Neck is supple. There is elevated jugular venous pressure. HEART EXAMINATION: Heart S1 and S2 irregularly irregular a systolic murmur is heard. CHEST EXAMINATION: Lungs reveal diminished air entry to bilateral bases. ABDOMEN: Soft, nontender. Bowel sounds are heard. No organomegaly noted. EXTREMITIES: 1+ peripheral pulses with 2+ bilateral peripheral edema and no calf tenderness noted. NEUROLOGIC patient is awake, alert and oriented -3. . - Labs CBC & Chem 7: 09/09/16 06:18 09/09/16 06:18 Labs: Abnormal Lab Results - Last 24 Hours (Table) 09/08/16 09/08/16 09/08/16 Range/Units 16:52 20:52 21:04 RBC (4.30-5.90) m/uL Hgb (13.0-17.5) gm/dL MCHC (31.0-37.0) g/dL RDW (11.5-15.5) % Plt Count (150-450) k/uL Neutrophils # (1.3-7.7) k/uL PT 33.3 H (9.0-12.0) sec Chloride (98-107) mmol/L Carbon Dioxide (22-30) mmol/L BUN (9-20) mg/dL Creatinine (0.66-1.25) mg/dL Glucose (74-99) mg/dL POC Glucose (mg/dL) 148 H 100 H (75-99) mg/dL Calcium (8.4-10.2) mg/dL 09/09/16 09/09/16 09/09/16 Range/Units : 06:18 06:18 RBC (4.30-5.90) m/uL Hgb (13.0-17.5) gm/dL MCHC (31.0-37.0) g/dL RDW (11.5-15.5) % Plt Count (150-450) k/uL Neutrophils # (1.3-7.7) k/uL PT 23.9 H (9.0-12.0) sec Chloride 97 L (98-107) mmol/L Carbon Dioxide 21 L (22-30) mmol/L BUN 69 H (9-20) mg/dL Creatinine 7.03 H* (0.66-1.25) mg/dL Glucose 117 H (74-99) mg/dL POC Glucose (mg/dL) 114 H (75-99) mg/dL Calcium 7.9 L (8.4-10.2) mg/dL 09/09/16 09/09/16 Range/Units 06:18 11:36 RBC 3.98 L (4.30-5.90) m/uL Hgb 11.6 L (13.0-17.5) gm/dL MCHC 29.3 L (31.0-37.0) g/dL RDW 17.0 H (11.5-15.5) % Plt Count 527 H (150-450) k/uL Neutrophils # 7.8 H (1.3-7.7) k/uL PT (9.0-12.0) sec Chloride (98-107) mmol/L Carbon Dioxide (22-30) mmol/L BUN (9-20) mg/dL Creatinine (0.66-1.25) mg/dL Glucose (74-99) mg/dL POC Glucose (mg/dL) 102 H (75-99) mg/dL Calcium (8.4-10.2) mg/dL Microbiology - Last 24 Hours (Table) 09/08/16 16:45 Urine Culture - Preliminary Urine,Catheterized 09/07/16 17:56 Blood Culture - Preliminary Blood No Growth after 24 hours Assessment and Plan (1) Acute on chronic kidney failure Status: Acute (2) Chronic a-fib Status: Acute (3) Hypotension Status: Acute (4) Diabetes mellitus Status: Acute (5) Bilateral lower leg cellulitis Status: Acute (6) 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 Discontinue Cardizem. Continue beta bella and hold for heart rate less than 60. DNP note has been reviewed, I agree with a documented findings and plan of care. Patient was seen and examined.
[2016-09-09] MEDS: buPROPion XL 300 MG TAB.ER.24H PO SCH (14:47)
[2016-09-09] MEDS: GABAPENTIN 300 MG CAP PO SCH ×2 (14:48→21:54)
[2016-09-09] MEDS: NYSTATIN 100,000 UNIT/ML SUSP 500,000 UNIT/5 ML CUP PO SCH ×4 (14:48→21:54)
[2016-09-09] MEDS: FENOFIBRATE 160 MG TAB PO SCH (14:48)
[2016-09-09] MEDS: NIACIN TR 500 MG CAPSULE.ER PO SCH (14:48)
[2016-09-09] MEDS: ALLOPURINOL 100 MG TAB PO SCH (14:48)
[2016-09-09] MEDS: THIAMINE 100 MG TAB PO SCH ×2 (14:49→21:55)
[2016-09-09] MEDS: CYANOCOBALAMIN 500 MCG TAB PO SCH (14:49)
[2016-09-09] MEDS: INSULIN GLARGINE 100 UNIT/ML 10 ML VIAL SQ SCH (14:58)
[2016-09-09 16:16] LABS: Hepatitis B Surface Ag Index 0.08
[2016-09-09 16:34] LABS: Hepatitis B Surface Antibody Negative (Negative)
--- NOTE | 2016-09-09 16:34 | PN ---
The patient is seen for follow-up for acute kidney injury. He was admitted to the hospital with a creatinine of 6.49 with a prior creatinine about 6 days ago was 2.2 mg/dL. Patient has been confused and was agitated last night, there was concern for uremia and a dialysis catheter was placed this morning in his right femoral vein. Patient is scheduled for dialysis today. He has an indwelling Harris catheter with urine output for about 300 mL noted. Currently patient has been sedated. He is sleeping. He does move, but I did not wake him up. Blood pressure is 116/80, heart rate 72 per minute. He is afebrile. Examination of the heart S1 and S2. Examination of the lungs: Decreased breath sounds in bases. Abdomen is soft, nontender, obese. Examination of lower extremities shows significant wounds. Bilateral lower extremity edema about 3+ bilaterally with significant chronic skin changes. Labs show sodium 137, potassium 4.8, BUN 69, serum creatinine 7.03. Hemoglobin 11.6 g/dL, calcium was 7.9. UA shows 3+ protein with RBCs and WBCs. ASSESSMENT: 1. Acute kidney injury, acute tubular necrosis versus AIN. The urine eosinophils are negative, however, that does not rule out acute interstitial nephritis completely. His urine output is marginal. At this time I will arrange for hemodialysis today as well as in a.m. This should help with his mentation. 2. Encephalopathy, most likely metabolic with an element of uremic encephalopathy. 3. Volume overload. Expect improvement with some degree of ultrafiltration with hemodialysis today and tomorrow. 4. Lower extremity cellulitis bilateral with right heel ulcer, maintained on daptomycin and Rocephin. 5. Atrial fibrillation with controlled ventricular response, being followed by Cardiology being maintained on Lopressor. 6. Diabetes, currently on insulin. 7. Hypophosphatemia currently maintained on Renvela. PLAN: Hemodialysis today as well as in a.m. We will try UF of about 2 liters today tomorrow depending on the blood pressure.
[2016-09-09 16:56] LABS: Glucose,Whole Blood 112 mg/dL (75-99)
[2016-09-09] MEDS: METOPROLOL TARTRATE 50 MG TAB PO SCH ×2 (18:14→21:54)
[2016-09-09] MEDS: NITROGLYCERIN OINT 1 INCH/GM PACKET TOPICAL SCH (18:14)
[2016-09-09] MEDS: ASPIRIN 325 MG TAB PO SCH (18:15)
--- NOTE | 2016-09-09 20:08 | PCN ---
DATE OF PROCEDURE: PREOPERATIVE DIAGNOSIS: Acute chronic renal failure. PROCEDURE: Placement of the 27 dialysis catheter, right femoral approach. This patient needed urgent dialysis catheter. Patient was brought into the labor/excavator. Right groins were prepped and draped in sterile manner. 1% lidocaine from the right groin. Micropuncture introduced into the right common femoral artery. Micropuncture guidewire was passed. A 4 Lithuanian dilator advanced on top the guidewire. Then we passed a 4 Lithuanian sheath. A regular guidewire passed and 27 dialysis catheter advanced on top of the guidewire, flushed with heparin saline and secured with 3-0 Vicryl. Dressing applied. The patient tolerated the procedure well.
[2016-09-09 21:09] LABS: Glucose,Whole Blood 95 mg/dL (75-99)
[2016-09-09] MEDS: FINASTERIDE 5 MG TAB PO SCH (21:54)
[2016-09-09] MEDS: COLLAGENASE 250 UNIT/GM OINTMENT 30 GM TUBE TOPICAL SCH (23:01)
[2016-09-09] MEDS: LORazepam 2 MG/ML SYRINGE IV PRN (23:21)
[2016-09-10] MEDS ORDERED: LORazepam 2 MG/ML SYRINGE IV PRN ×2 (01:59→18:54)
[2016-09-10] MEDS ORDERED: LORazepam 2 MG/ML SYRINGE IV ONE (02:31)
[2016-09-10 06:14] LABS: Glucose,Whole Blood 110 mg/dL (75-99)
[2016-09-10] MEDS: LORazepam 2 MG/ML SYRINGE IV PRN (06:19)
[2016-09-10] MEDS: SEVELAMER 800 MG TAB PO SCH ×3 (06:46→17:12)
[2016-09-10] MEDS: PANTOPRAZOLE 40 MG TABLET PO SCH (06:46)
[2016-09-10 07:09] LABS: INR 1.7 (<1.1); Prothrombin Time 16.4 sec (9.0-12.0)
[2016-09-10 07:25] LABS: Calcium 7.4 mg/dL (8.4-10.2); Potassium 4.5 mmol/L (3.5-5.1); Total Bilirubin 1.2 mg/dL (0.2-1.3)
--- NOTE | 2016-09-10 08:00 | P.PN ---
Subjective Principal diagnosis: This is a 61-year-old white male essentially admitted for altered mental status with acute renal failure. He is currently getting his catheter, temporarily placed, for emergent dialysis. Last night, he had significant confusion. Ativan was given to sedate and calm down the patient. Otherwise, had a long discussion with his spouse. He has significant chronic cellulitis with out evidence of osteomyelitis. Otherwise he is a diabetic with atrial fibrillation. Objective - Vital Signs Vital signs: Vital Signs Temp 97.6 F 09/09/16 00:00 Pulse 76 09/09/16 05:57 Resp 18 09/09/16 05:57 BP 104/84 09/09/16 05:57 Pulse Ox 93 L 09/09/16 05:57 Intake & Output 09/08/16 09/09/16 09/09/16 18:59 06:59 18:59 Intake Total 1020 1200 Output Total 300 Balance 1020 900 Weight 150 kg 149.5 kg Intake: IV 1200 0.9 1200 Intake, IV Titration 900 Amount Sodium Chloride 0.9% 1, 800 000 ml @ 100 mls/hr IV . Q10H ONE Rx#:[id number] cefTRIAXone 1,000 mg In 100 Sodium Chloride 0.9% 50 ml @ 100 mls/hr IVPB DAILY [facility] Rx#:[id number] Oral 120 Output: Urine 300 Other: Voiding Method Indwelling Catheter Indwelling Catheter # Bowel Movements 0 - Constitutional General appearance: Present: obese - EENT Eyes: Absent: abnormal pupil - Neck Neck: Absent: stridor - Respiratory Respiratory: bilateral: diminished - Cardiovascular Rhythm: irregularly irregular Heart sounds: normal: S1, S2 - Gastrointestinal General gastrointestinal: Present: soft. Absent: tenderness - Integumentary Integumentary: Present: cellulitis - Neurologic Neurologic Comment(s): Altered mental status and confusion - Labs CBC & Chem 7: 09/09/16 06:18 09/09/16 06:18 Labs: Abnormal Lab Results - Last 24 Hours (Table) 09/08/16 09/08/16 09/08/16 Range/Units 12:01 16:52 20:52 RBC (4.30-5.90) m/uL Hgb (13.0-17.5) gm/dL MCHC (31.0-37.0) g/dL RDW (11.5-15.5) % Plt Count (150-450) k/uL Neutrophils # (1.3-7.7) k/uL PT (9.0-12.0) sec Chloride (98-107) mmol/L Carbon Dioxide (22-30) mmol/L BUN (9-20) mg/dL Creatinine (0.66-1.25) mg/dL Glucose (74-99) mg/dL POC Glucose (mg/dL) 101 H 148 H 100 H (75-99) mg/dL Calcium (8.4-10.2) mg/dL 09/08/16 09/09/16 09/09/16 Range/Units 21:04 06:17 06:18 RBC (4.30-5.90) m/uL Hgb (13.0-17.5) gm/dL MCHC (31.0-37.0) g/dL RDW (11.5-15.5) % Plt Count (150-450) k/uL Neutrophils # (1.3-7.7) k/uL PT 33.3 H (9.0-12.0) sec Chloride 97 L (98-107) mmol/L Carbon Dioxide 21 L (22-30) mmol/L BUN 69 H (9-20) mg/dL Creatinine 7.03 H* (0.66-1.25) mg/dL Glucose 117 H (74-99) mg/dL POC Glucose (mg/dL) 114 H (75-99) mg/dL Calcium 7.9 L (8.4-10.2) mg/dL 09/09/16 09/09/16 Range/Units 06:18 06:18 RBC 3.98 L (4.30-5.90) m/uL Hgb 11.6 L (13.0-17.5) gm/dL MCHC 29.3 L (31.0-37.0) g/dL RDW 17.0 H (11.5-15.5) % Plt Count 527 H (150-450) k/uL Neutrophils # 7.8 H (1.3-7.7) k/uL PT 23.9 H (9.0-12.0) sec Chloride (98-107) mmol/L Carbon Dioxide (22-30) mmol/L BUN (9-20) mg/dL Creatinine (0.66-1.25) mg/dL Glucose (74-99) mg/dL POC Glucose (mg/dL) (75-99) mg/dL Calcium (8.4-10.2) mg/dL Microbiology - Last 24 Hours (Table) 09/08/16 16:45 Urine Culture - Preliminary Urine,Catheterized 09/07/16 17:56 Blood Culture - Preliminary Blood No Growth after 24 hours Assessment and Plan (1) Acute kidney injury Status: Acute (2) Cellulitis of right leg Status: Acute (3) Chronic a-fib Status: Acute (4) Congestive heart failure Status: Acute (5) Generalized weakness Status: Acute (6) Pulmonary HTN Status: Acute Plan: Await dialysis to see if this will augment returned to normal mental status. Follow sugar closely. Check CBC and CMP in a.m. See orders otherwise. Time with Patient: Less than 30
--- NOTE | 2016-09-10 08:03 | P.PN ---
Subjective Principal diagnosis: Altered mental status The patient is struggling with confusion for the last 2 nights. We will titrate his Ativan dosing. Otherwise, dialysis has been instituted and his creatinine is slowly decreasing. No significant chest pain but the patient is somewhat sedated at this time. Objective - Vital Signs Vital signs: Vital Signs Temp 97.4 F L 09/10/16 03:59 Pulse 80 09/10/16 03:59 Resp 18 09/10/16 03:59 BP 131/79 09/10/16 03:59 Pulse Ox 96 09/10/16 03:59 Intake & Output 09/09/16 09/10/16 09/10/16 18:59 06:59 18:59 Intake Total 200 300 Output Total 600 300 Balance -400 0 Weight 151 kg Intake: Intake, IV Titration 200 Amount DAPTOmycin 500 mg In 100 Sodium Chloride 0.9% 50 ml @ 100 mls/hr IV Q48H [facility] Rx#:[id number] cefTRIAXone 1,000 mg In 100 Sodium Chloride 0.9% 50 ml @ 100 mls/hr IVPB DAILY [facility] Rx#:[id number] Oral 0 300 Output: Urine 600 300 Other: Voiding Method Indwelling Catheter Indwelling Catheter - Constitutional General appearance: Present: obese - EENT Eyes: Absent: abnormal pupil - Respiratory Respiratory: bilateral: CTA - Cardiovascular Rhythm: irregularly irregular Heart sounds: normal: S1, S2 - Gastrointestinal General gastrointestinal: Present: soft. Absent: tenderness - Integumentary Integumentary: Present: cellulitis - Labs CBC & Chem 7: 09/09/16 06:18 09/10/16 06:38 Labs: Abnormal Lab Results - Last 24 Hours (Table) 09/09/16 09/09/16 09/10/16 Range/Units 11:36 16:35 06:12 PT (9.0-12.0) sec BUN (9-20) mg/dL Creatinine (0.66-1.25) mg/dL Glucose (74-99) mg/dL POC Glucose (mg/dL) 102 H 112 H 110 H (75-99) mg/dL Calcium (8.4-10.2) mg/dL Albumin (3.5-5.0) g/dL 09/10/16 09/10/16 Range/Units 06:38 06:38 PT 16.4 H (9.0-12.0) sec BUN 57 H (9-20) mg/dL Creatinine 5.90 H* (0.66-1.25) mg/dL Glucose 116 H (74-99) mg/dL POC Glucose (mg/dL) (75-99) mg/dL Calcium 7.4 L (8.4-10.2) mg/dL Albumin 3.3 L (3.5-5.0) g/dL Microbiology - Last 24 Hours (Table) 09/07/16 17:56 Blood Culture - Preliminary Blood No Growth after 48 hours Assessment and Plan (1) Acute kidney injury Status: Acute (2) Cellulitis of right leg Status: Acute (3) Chronic a-fib Status: Acute (4) Congestive heart failure Status: Acute (5) Generalized weakness Status: Acute (6) Pulmonary HTN Status: Acute (7) Status: Acute Plan: Go ahead and increase Ativan to 0.5-1 mg every 6 hours when necessary. Check CMP in a.m. Dr. Lilly's group will be covering for the weekend. See orders otherwise.
[2016-09-10] MEDS: NIACIN TR 500 MG CAPSULE.ER PO SCH (09:20)
[2016-09-10] MEDS: METOPROLOL TARTRATE 50 MG TAB PO SCH ×2 (09:20→21:31)
[2016-09-10] MEDS: NICOTINE 21MG/24HR PATCH TRANSDERM SCH (09:20)
[2016-09-10] MEDS: FENOFIBRATE 160 MG TAB PO SCH (09:20)
[2016-09-10] MEDS: ALLOPURINOL 100 MG TAB PO SCH (09:20)
[2016-09-10] MEDS: NYSTATIN 100,000 UNIT/ML SUSP 500,000 UNIT/5 ML CUP PO SCH ×4 (09:20→21:30)
[2016-09-10] MEDS: GABAPENTIN 300 MG CAP PO SCH ×2 (09:21→21:31)
[2016-09-10] MEDS: buPROPion XL 300 MG TAB.ER.24H PO SCH (09:21)
[2016-09-10] MEDS: ASPIRIN 81 MG CHEW PO SCH (09:21)
[2016-09-10] MEDS: traMADol 50 MG TAB PO SCH ×3 (09:21→23:07)
[2016-09-10] MEDS: THIAMINE 100 MG TAB PO SCH ×2 (09:22→21:31)
[2016-09-10] MEDS: INSULIN GLARGINE 100 UNIT/ML 10 ML VIAL SQ SCH (10:48)
[2016-09-10 11:44] LABS: Glucose,Whole Blood 89 mg/dL (75-99)
--- NOTE | 2016-09-10 12:56 | P.PN ---
Subjective Principal diagnosis: Acute Kidney Injury This is a 61-year-old gentleman who follows with Dr. Lopez in the office. Patient is quite confused and sedated this morning therefore HPI was obtained from the chart. The hospital with acute kidney injury, cellulitis and hypotension. Patient was quite confused when he came in had improved and is again confused. Patient underwent hemodialysis catheter placement yesterday as well as a dialysis treatment today in initial BUN 69 and creatinine 7.03 with repeat today of 57 and 5.9. Vital signs are stable. Patient was noted to be bradycardic and his beta blockers have been held. Echocardiogram with Doppler study was performed which revealed an ejection fraction of 50-55%. INR today 1.7. Objective - Vital Signs Vital signs: Vital Signs Temp 96.8 F L 09/10/16 11:37 Pulse 76 09/10/16 11:37 Resp 18 09/10/16 11:37 BP 115/81 09/10/16 11:37 Pulse Ox 94 L 09/10/16 11:37 Intake & Output 09/09/16 09/10/16 09/10/16 18:59 06:59 18:59 Intake Total 200 300 900 Output Total 600 300 400 Balance -400 0 500 Weight 151 kg 151 kg Intake: IV 800 0.9 800 Intake, IV Titration 200 100 Amount DAPTOmycin 500 mg In 100 50 Sodium Chloride 0.9% 50 ml @ 100 mls/hr IV Q48H [facility] Rx#:[id number] cefTRIAXone 1,000 mg In 100 50 Sodium Chloride 0.9% 50 ml @ 100 mls/hr IVPB DAILY [facility] Rx#:[id number] Oral 0 300 Output: Urine 600 300 400 Other: Voiding Method Indwelling Catheter Indwelling Catheter Indwelling Catheter - Exam PHYSICAL EXAMINATION: HEENT: Head is atraumatic, normocephalic. Pupils equal, round. Neck is supple. There is no elevated jugular venous pressure. HEART EXAMINATION: Heart sounds irregularly irregular, S1 and S2 with a systolic murmur. CHEST EXAMINATION: Lungs are clear to auscultation and precussion. No chest wall tenderness is noted on palpation or with deep breathing. ABDOMEN: Soft, nontender. Bowel sounds are heard. No organomegaly noted. EXTREMITIES: 1+ peripheral pulses with evidence of 2+ bilateral peripheral edema and no calf tenderness noted. NEUROLOGIC patient is sedated, confused. . - Labs CBC & Chem 7: 09/09/16 06:18 09/10/16 06:38 Labs: Abnormal Lab Results - Last 24 Hours (Table) 09/09/16 09/10/16 09/10/16 Range/Units 16:35 06:12 06:38 PT 16.4 H (9.0-12.0) sec BUN (9-20) mg/dL Creatinine (0.66-1.25) mg/dL Glucose (74-99) mg/dL POC Glucose (mg/dL) 112 H 110 H (75-99) mg/dL Calcium (8.4-10.2) mg/dL Albumin (3.5-5.0) g/dL 09/10/16 Range/Units 06:38 PT (9.0-12.0) sec BUN 57 H (9-20) mg/dL Creatinine 5.90 H* (0.66-1.25) mg/dL Glucose 116 H (74-99) mg/dL POC Glucose (mg/dL) (75-99) mg/dL Calcium 7.4 L (8.4-10.2) mg/dL Albumin 3.3 L (3.5-5.0) g/dL Microbiology - Last 24 Hours (Table) 09/07/16 17:56 Blood Culture - Preliminary Blood No Growth after 48 hours Assessment and Plan (1) Acute kidney injury Status: Acute (2) Chronic a-fib Status: Chronic (3) Diabetes mellitus Status: Chronic (4) Hypotension Status: Acute (5) Bilateral lower leg cellulitis Status: Acute (6) 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 Continue to follow the patient right further recommendations accordingly. The above dictated assessment and findings were discussed with signing physician. The impression and plan of care have been directed as dictated. Emerita Gilbert, Nurse Practitioner, acting as scribe for signing physician.
[2016-09-10] MEDS: CYANOCOBALAMIN 500 MCG TAB PO SCH (14:10)
[2016-09-10] MEDS: ONDANSETRON 4 MG/2 ML VIAL IVP PRN (15:16)
--- NOTE | 2016-09-10 15:24 | PN ---
Patient is seen for followup for acute kidney injury. He was dialyzed yesterday. Patient tolerated his treatment fairly well. We will dialyze him again today. His urine output has picked up. Patient had about 900 mL for 24 hours yesterday. He currently has a right femoral South catheter. Patient remains combative and confused and was pulling at his dialysis catheter; therefore he is currently in restraints with a sitter. His creatinine on admission was 6.49. It went up to 7.03. Today it is at 5.9. Previous creatinine about 6 days before admission was 2.2 mg/dL. On August 02, serum creatinine was 0.97 mg/dL. Urine for eosinophils was negative and his UA did show 3+ protein and WBC clumps. There is no evidence of obstructive uropathy. As mentioned earlier, urine output has picked up from yesterday. On examination today, patient is sleeping. Blood pressure is 115/81, heart rate 76 per minute. He is afebrile. EXAMINATION OF THE HEART: S1 and S2. EXAMINATION OF THE LUNGS: Decreased breath sounds in bases. ABDOMEN: Soft, obese. Examination of lower extremities shows significant chronic skin changes with edema 2+ bilaterally. Both lower extremities are also wrapped. CARCASS WASHER exam shows patient is moving all 4 extremities; however, currently he is sleeping but has been easily arousable. Labs from today show serum creatinine 5.9, sodium 140, potassium 4.5, calcium 7.4. ASSESSMENT: 1. Acute kidney injury, currently non-oliguric; possibly acute tubular necrosis. Urine output has picked up. There is large amount of WBCs on the urine culture, but there is no hematuria. Urine eosinophils were negative for possible acute interstitial nephritis. We will arrange for his second dialysis treatment today, and hopefully his mentation will improve. Patient will also be dialyzed again tomorrow. 2. Lower extremity cellulitis, maintained on Rocephin and daptomycin. 3. Significant bilateral lower extremity edema with no evidence of congestive heart failure. I will increase UF to about 1.5 liters today with hemodialysis. 4. Atrial fibrillation with controlled ventricular response, maintained on Lopressor. 5. Insulin-requiring diabetes mellitus. 6. Hyperphosphatemia, maintained on Renvela. 7. Right heel ulcer, currently on Rocephin and daptomycin. PLAN: Repeat dialysis today as well as in a.m. Check serologies and follow up on urine cultures. Continue the antibiotics for now. Continue to avoid nephrotoxic agents.
[2016-09-10 16:52] LABS: Glucose,Whole Blood 101 mg/dL (75-99)
[2016-09-10 17:04] LABS: Hepatitis C Virus IgG Ab Negative (Negative)
[2016-09-10 18:25] LABS: Hepatitis B Surface Ag Index 0.09
[2016-09-10 18:42] LABS: Hepatitis C Virus IgG Index 0.07
[2016-09-10 20:47] LABS: Glucose,Whole Blood 131 mg/dL (75-99)
[2016-09-10] MEDS: FINASTERIDE 5 MG TAB PO SCH (21:31)
[2016-09-10] MEDS: COLLAGENASE 250 UNIT/GM OINTMENT 30 GM TUBE TOPICAL SCH (21:43)
[2016-09-11 05:51] LABS: Glucose,Whole Blood 114 mg/dL (75-99)
[2016-09-11] MEDS: DAPTOmycin 500 MG in SODIUM CHLORIDE 0.9% 50 ML IV SCH (09:27)
[2016-09-11] MEDS: METOPROLOL TARTRATE 50 MG TAB PO SCH (09:30)
[2016-09-11] MEDS: GABAPENTIN 300 MG CAP PO SCH (09:30)
[2016-09-11] MEDS: SEVELAMER 800 MG TAB PO SCH ×3 (09:30→16:34)
[2016-09-11] MEDS: traMADol 50 MG TAB PO SCH ×2 (09:30→15:42)
[2016-09-11] MEDS: THIAMINE 100 MG TAB PO SCH (09:31)
[2016-09-11] MEDS: NYSTATIN 100,000 UNIT/ML SUSP 500,000 UNIT/5 ML CUP PO SCH ×3 (09:31→16:34)
--- NOTE | 2016-09-11 09:40 | P.PN ---
Subjective Principal diagnosis: This is a 61-year-old male who is followed up with acute kidney injury requiring dialysis. He was started on dialysis yesterday 09/10/2016 with the groin South catheter on the right side. He was dialyzed this morning as well. His acute kidney injury is deemed to be from acute tubular necrosis from sepsis , cellulitis of both lower extremities. He is suspected to have osteomyelitis. He is also known with atrial fibrillation chronic diabetes and right heel ulcer. Currently he is sedated with Ativan because of restlessness and confusion. Objective - Vital Signs Vital signs: Vital Signs Temp 97.6 F 09/11/16 07:57 Pulse 70 09/11/16 07:57 Resp 14 09/11/16 07:57 BP 111/65 09/11/16 07:57 Pulse Ox 98 09/11/16 09:25 Intake & Output 09/10/16 09/11/16 09/11/16 18:59 06:59 18:59 Intake Total 1750 1000 Output Total 400 500 Balance 1350 500 Weight 151 kg 154.5 kg Intake: IV 1600 1000 0.9 1600 1000 Intake, IV Titration 150 Amount DAPTOmycin 500 mg In 50 Sodium Chloride 0.9% 50 ml @ 100 mls/hr IV Q48H [facility] Rx#:[id number] cefTRIAXone 1,000 mg In 100 Sodium Chloride 0.9% 50 ml @ 100 mls/hr IVPB DAILY [facility] Rx#:[id number] Output: Urine 400 500 Other: Voiding Method Indwelling Catheter Indwelling Catheter On examination he remains the obtunded and has been given Ativan recently because of restlessness. Neck is supple no facial asymmetry Lungs are clear to auscultation and percussion with poor air entry because of obtundation. Heart sounds are unremarkable no murmur rub gallop Abdomen soft nontender no organomegaly ascites masses but somewhat obese difficult to examine Extremity exam was chronic stasis changes with dark pigmented coarse skin with mild edema Both heels are wrapped up and supposedly has a heel ulcer. Neurologically as mentioned above obtunded moans and groans with pain stimulus. - Labs CBC & Chem 7: 09/09/16 06:18 09/10/16 06:38 Labs: Abnormal Lab Results - Last 24 Hours (Table) 09/10/16 09/10/16 09/11/16 Range/Units 16:35 20:45 05:50 POC Glucose (mg/dL) 101 H 131 H 114 H (75-99) mg/dL Microbiology - Last 24 Hours (Table) 09/08/16 16:45 Urine Culture - Final Urine,Catheterized Radhika albicans 09/07/16 17:56 Blood Culture - Preliminary Blood No Growth after 72 hours Assessment and Plan Plan: Impression. 1. Acute kidney injury from ATN from sepsis and requiring dialysis started yesterday 09/10/2078 had dialysis today. He might have been uremic with obtundation. Fair amount of urine output of 900 mL over the last 2 days consistently each day. 2. Evidence of chronic kidney disease with proteinuria but normal creatinine of 0.97 on 08/02/2016 3. Obtundation secondary to uremia possibly, in addition to other factors. 4. Diabetes mellitus,. 5. Chronic atrial fibrillation. Recommendation. Maintain dialysis until his obtundation clears. Next dialysis will be day after tomorrow Tuesday. Calcium phosphorus albumin and CBC and blood sugars.
[2016-09-11 10:18] LABS: Glucose,Whole Blood 86 mg/dL (75-99)
[2016-09-11 10:38] LABS: INR 1.5 (<1.1); Prothrombin Time 14.8 sec (9.0-12.0)
[2016-09-11 11:01] LABS: Calcium 7.9 mg/dL (8.4-10.2); Total Bilirubin 1.2 mg/dL (0.2-1.3); Total Protein 7.4 g/dL (6.3-8.2)
[2016-09-11 11:05] LABS: Potassium 4.7 mmol/L (3.5-5.1)
[2016-09-11 11:47] LABS: Glucose,Whole Blood 82 mg/dL (75-99)
[2016-09-11] MEDS: INSULIN GLARGINE 100 UNIT/ML 10 ML VIAL SQ SCH (15:09)
[2016-09-11] MEDS: ALLOPURINOL 100 MG TAB PO SCH (15:41)
[2016-09-11] MEDS: NIACIN TR 500 MG CAPSULE.ER PO SCH (15:42)
[2016-09-11] MEDS: CYANOCOBALAMIN 500 MCG TAB PO SCH (15:42)
[2016-09-11] MEDS: ASPIRIN 81 MG CHEW PO SCH (15:42)
[2016-09-11] MEDS: FENOFIBRATE 160 MG TAB PO SCH (15:42)
[2016-09-11] MEDS: buPROPion XL 300 MG TAB.ER.24H PO SCH (15:42)
[2016-09-11] MEDS: NICOTINE 21MG/24HR PATCH TRANSDERM SCH (16:33)
[2016-09-11 16:49] LABS: Glucose,Whole Blood 89 mg/dL (75-99)
--- NOTE | 2016-09-11 18:44 | PN ---
Patient is a 61-year-old gentleman admitted secondary to acute tubular necrosis. Patient is receiving hemodialysis and patient is getting confused more often now and patient is excessively drowsy because of the Ativan. The patient's Ativan dose was decreased yesterday, which will be discontinued at this point of time. Patient will use Seroquel on p.r.n. basis for agitation. Patient is on broad-spectrum antibiotics because of osteomyelitis of the right lower limb and cellulitis. Patient has had multiple admissions due to severe sepsis secondary to that and patient is presently on daptomycin and ceftriaxone, which will be continued at this time. Patient has a Harris catheter in place. Patient's Coumadin is subtherapeutic. Patient does have history of atrial fibrillation. Patient will be resumed on Coumadin at 1 mg. Patient was using 1.5 mg at home. REVIEW OF SYSTEMS: Unable to obtain due to his clinical condition. Medications are reviewed. PHYSICAL EXAMINATION: VITAL SIGNS: Temperature 97.6, pulse of 83, respiratory rate of 15, blood pressure is 119/20, saturating at 93% on 4L of O2 nasal cannula. GENERAL: Patient is drowsy, unable to assess orientation. HEENT: Pupils are round and equally reacting to light. EOMI. No scleral icterus. No conjunctival pallor. Normocephalic, atraumatic. No pharyngeal erythema. No thyromegaly. CARDIOVASCULAR: S1 and S2 present. No murmurs, rubs, or gallops. PULMONARY: Chest is clear to auscultation, no wheezing or crackles. ABDOMEN: Soft, nontender, nondistended, normoactive bowel sounds. No palpable organomegaly. MUSCULOSKELETAL: No joint swelling or deformity. EXTREMITIES: Patient does have bilateral lower limb swelling with localized temperature and redness of the right lower limb. Patient's foot is wrapped patient had osteomyelitis in that limb in the right foot calcaneus. NEUROLOGICAL: Gross neurological examination did not reveal any focal deficits. SKIN: No rashes. LABORATORY DATA: INR is 1.5. BUN of 31, creatinine of 3.94. ASSESSMENT AND PLAN: 1. Encephalopathy, appears to be toxic encephalopathy secondary to medications which will be discontinued, Ativan. Patient will use Seroquel for agitation if he has any secondary to . 2. Acute renal failure with acute tubular necrosis secondary to possible sepsis. Patient is on dialysis. Although patient is urinating, patient will be continued on hemodialysis. 3. Chronic atrial fibrillation. Patient is rate controlled at this point of time. Patient will be resumed on Coumadin as mentioned above. 4. Right lower limb cellulitis along with osteomyelitis of the right calcaneus. Antibiotics as mentioned above. 5. Pulmonary hypertension. 6. Patient has multiple other chronic medical problems for which we will go ahead and continue present medications, including diabetes mellitus type 2, although Lantus will be held at this point of time because of the low blood pressures and the patient has not been eating. Peripheral artery disease and hypertension are other major medical issues.
[2016-09-11 20:54] LABS: Glucose,Whole Blood 76 mg/dL (75-99)
[2016-09-11] MEDS: COLLAGENASE 250 UNIT/GM OINTMENT 30 GM TUBE TOPICAL SCH (22:15)
[2016-09-12] MEDS ORDERED: LORazepam 2 MG/ML SYRINGE IV PRN (00:22)
[2016-09-12 02:05] LABS: Glucose,Whole Blood 75 mg/dL (75-99)
[2016-09-12 05:36] LABS: Glucose,Whole Blood 69 mg/dL (75-99)
[2016-09-12] MEDS: NYSTATIN 100,000 UNIT/ML SUSP 500,000 UNIT/5 ML CUP PO SCH ×6 (05:54→21:05)
[2016-09-12] MEDS: WARFARIN 1 MG TAB PO SCH ×2 (05:54→17:06)
[2016-09-12] MEDS: METOPROLOL TARTRATE 50 MG TAB PO SCH ×4 (05:54→17:06)
[2016-09-12] MEDS: GABAPENTIN 300 MG CAP PO SCH ×3 (05:54→20:41)
[2016-09-12] MEDS: THIAMINE 100 MG TAB PO SCH ×3 (05:54→20:41)
[2016-09-12] MEDS: FINASTERIDE 5 MG TAB PO SCH ×2 (05:54→20:42)
[2016-09-12] MEDS: traMADol 50 MG TAB PO SCH ×3 (05:55→16:23)
[2016-09-12 06:32] LABS: Glucose,Whole Blood 81 mg/dL (75-99)
[2016-09-12 06:46] LABS: INR 1.5 (<1.1); Prothrombin Time 14.6 sec (9.0-12.0)
[2016-09-12 06:48] LABS: Calcium 8.4 mg/dL (8.4-10.2); Potassium 4.7 mmol/L (3.5-5.1)
[2016-09-12 07:20] LABS: Anisocytosis Slight; CH 29.1; CHCM 28.6; HDW 3.61; HGB 11.8 gm/dL (13.0-17.5); Hypochromasia Marked; MCH 30.3 pg (25.0-35.0); MCHC 29.6 g/dL (31.0-37.0); MCV 102.4 fL (80.0-100.0); Macrocytosis Moderate; Mean Platelet Volume 7.7; Poikilocytosis Slight; RBC 3.91 m/uL (4.30-5.90); RDW 16.9 % (11.5-15.5); WBC 9.9 k/uL (3.8-10.6)
[2016-09-12] MEDS: SEVELAMER 800 MG TAB PO SCH ×3 (07:44→16:24)
[2016-09-12] MEDS: NICOTINE 21MG/24HR PATCH TRANSDERM SCH (07:45)
[2016-09-12] MEDS: buPROPion XL 300 MG TAB.ER.24H PO SCH (09:08)
[2016-09-12] MEDS: ASPIRIN 81 MG CHEW PO SCH (09:08)
[2016-09-12] MEDS: FENOFIBRATE 160 MG TAB PO SCH (09:08)
[2016-09-12] MEDS: NIACIN TR 500 MG CAPSULE.ER PO SCH (09:08)
[2016-09-12] MEDS: ALLOPURINOL 100 MG TAB PO SCH (09:08)
--- NOTE | 2016-09-12 09:59 | P.PN ---
Subjective Principal diagnosis: This is a 61-year-old male who is followed up with acute kidney injury secondary to sepsis from bilateral leg cellulitis, requiring dialysis. He was started on dialysis 09/10/2016 with groin South catheter on the right side. He was dialyzed 2 days in a row last dialysis being yesterday 09/11/2016. He remains somewhat confused but sleepy and not restless. He wakes up but does not answer questions. He mumbles. He seems to be moving all his extremities. His acute kidney injury is deemed to be from acute tubular necrosis from sepsis , cellulitis of both lower extremities. He is suspected to have osteomyelitis. He is also known with atrial fibrillation chronic diabetes and right heel ulcer. He has flat feet and Charcot. Currently he is sedated with Ativan because of restlessness and confusion. Objective - Vital Signs Vital signs: Vital Signs Temp 97.8 F 09/12/16 07:34 Pulse 104 H 09/12/16 07:34 Resp 16 09/12/16 07:34 BP 121/71 09/12/16 07:34 Pulse Ox 96 09/12/16 09:05 Intake & Output 09/11/16 09/12/16 09/12/16 18:59 06:59 18:59 Intake Total 120 Output Total 300 100 Balance -180 -100 Weight 151 kg Intake: IV 120 0.9 120 Oral 0 Output: Urine 300 100 Other: Voiding Method Indwelling Catheter Indwelling Catheter Indwelling Catheter On examination he is an obese male sleepy but arousable. HEENT exam is somewhat difficult but no JVP is noted neck is supple. Pupils are equal. Lungs are clear to auscultation but poor air entry therefore difficult to be certain. Heart sounds are unremarkable. No murmur rub gallop Abdomen is soft nontender Extremity exam was moderate edema. Neurologically sleepy but arousable but does not like to be disturbed. He is moving all his extremities. He has Charcot's with flat feet. Both lower legs are wrapped in bandages. - Labs CBC & Chem 7: 09/12/16 05:41 09/12/16 05:41 Labs: Abnormal Lab Results - Last 24 Hours (Table) 09/11/16 09/11/16 09/12/16 Range/Units 10:02 10:02 05:35 RBC (4.30-5.90) m/uL Hgb (13.0-17.5) gm/dL MCV (80.0-100.0) fL MCHC (31.0-37.0) g/dL RDW (11.5-15.5) % PT 14.8 H (9.0-12.0) sec Carbon Dioxide (22-30) mmol/L BUN 31 H (9-20) mg/dL Creatinine 3.94 H (0.66-1.25) mg/dL Glucose (74-99) mg/dL POC Glucose (mg/dL) 69 L (75-99) mg/dL Calcium 7.9 L (8.4-10.2) mg/dL Albumin 3.4 L (3.5-5.0) g/dL 09/12/16 09/12/16 09/12/16 Range/Units 05:41 05:41 05:47 RBC 3.91 L (4.30-5.90) m/uL Hgb 11.8 L (13.0-17.5) gm/dL MCV 102.4 H (80.0-100.0) fL MCHC 29.6 L (31.0-37.0) g/dL RDW 16.9 H (11.5-15.5) % PT 14.6 H (9.0-12.0) sec Carbon Dioxide 21 L (22-30) mmol/L BUN 34 H (9-20) mg/dL Creatinine 4.40 H (0.66-1.25) mg/dL Glucose 73 L (74-99) mg/dL POC Glucose (mg/dL) (75-99) mg/dL Calcium (8.4-10.2) mg/dL Albumin (3.5-5.0) g/dL Microbiology - Last 24 Hours (Table) 09/07/16 17:56 Blood Culture - Preliminary Blood No Growth after 96 hours Assessment and Plan Plan: Impression. 1. Acute kidney injury from ATN from sepsis and requiring dialysis, dialysis started 09/10/2016 and has been dialyzed again on 09/11/2016 so for dialyzed twice. Last dialysis was yesterday. Has fair amount of urine. He might have been uremic with obtundation. 2. Evidence of chronic kidney disease with proteinuria but normal creatinine of 0.97 on 08/02/2016, likely diabetic nephropathy 3. Obtundation secondary to uremia possibly, in addition to other factors. 4. Diabetes mellitus,. 5. Chronic atrial fibrillation. Recommendation. Maintain dialysis until his obtundation clears. Next dialysis will be tomorrow Tuesday. Monitor Calcium phosphorus albumin and CBC and blood sugars.
[2016-09-12 11:49] LABS: Glucose,Whole Blood 72 mg/dL (75-99)
[2016-09-12] MEDS: CYANOCOBALAMIN 500 MCG TAB PO SCH (12:21)
[2016-09-12 16:46] LABS: Glucose,Whole Blood 154 mg/dL (75-99)
[2016-09-12] MEDS ORDERED: OLANZapine ODT 5 MG TAB PO PRN (17:12)
--- NOTE | 2016-09-12 19:36 | PN ---
The patient is a 61-year-old, it a little bit more awake today. We will discontinue Ativan and will use antipsychotics for agitation and patient overall clinical condition is fairly stable. Review of systems unable to obtain due to his clinical condition. Medications are reviewed. PHYSICAL EXAMINATION: VITAL SIGNS: Temperature 97.3, pulse 98, respiratory rate of 16, blood pressure is 115/60, saturating at 93% on 2 L O2 nasal cannula. GENERAL: The patient is awake today. A little less drowsy, unable to assess orientation. HEENT: Pupils are round and equally reacting to light. EOMI. No scleral icterus. No conjunctival pallor. Normocephalic, atraumatic. No pharyngeal erythema. No thyromegaly. CARDIOVASCULAR: S1 and S2 present. No murmurs, rubs, or gallops. PULMONARY: Chest is clear to auscultation, no wheezing or crackles. ABDOMEN: Soft, nontender, nondistended, normoactive bowel sounds. No palpable organomegaly. MUSCULOSKELETAL: No joint swelling or deformity. NEUROLOGICAL: Unable to assess. EXTREMITIES: No significant change compared to yesterday. SKIN: No rashes. LABORATORY DATA: CBC, CMP are abnormal for elevated BUN and creatinine of 34 and 4.40, which is better than yesterday. ASSESSMENT AND PLAN: 1. Toxic encephalopathy secondary to medications which improved today. Continue to hold off Ativan, use Seroquel or Zyprexa for agitation secondary to . 2. Acute renal failure secondary to acute tubular necrosis which is again secondary to sepsis. Continue with hemodialysis. Patient continues to be anuric. 3. Chronic atrial fibrillation, rate controlled. INR is subtherapeutic. But patient is not taking anything p.o. Will attempt to give him Coumadin today. If not I do not believe patient needs to be bridged at this point of time, but that decision will be left to cardiology. 4. Pulmonary hypertension. 5. Diabetes mellitus, nursing staff is trying to feed him to avoid hypoglycemia. 6. Peripheral artery disease. 7. Hypertension for which his home medications will be continued.
[2016-09-12 20:41] LABS: Glucose,Whole Blood 132 mg/dL (75-99)
[2016-09-12] MEDS: QUEtiapine 25 MG TAB PO PRN (20:41)
[2016-09-12] MEDS: COLLAGENASE 250 UNIT/GM OINTMENT 30 GM TUBE TOPICAL SCH (20:42)
[2016-09-12] MEDS ORDERED: ACETAMINOPHEN IV (For NPO) 1,000 MG in EMPTY BAG 1 BAG IVPB ONE (23:17)
[2016-09-13] MEDS: traMADol 50 MG TAB PO SCH ×3 (00:23→16:21)
[2016-09-13 05:50] LABS: Glucose,Whole Blood 100 mg/dL (75-99)
[2016-09-13] MEDS: SEVELAMER 800 MG TAB PO SCH ×3 (06:12→18:17)
[2016-09-13 07:09] LABS: Calcium 8.4 mg/dL (8.4-10.2); Potassium 4.4 mmol/L (3.5-5.1)
[2016-09-13] MEDS: NICOTINE 21MG/24HR PATCH TRANSDERM SCH (07:58)
--- NOTE | 2016-09-13 07:58 | P.PN ---
Subjective Principal diagnosis: Altered mental status The patient is struggling with confusion for the last 4 nights. Benzodiazepines have been discontinued. However, he still somewhat obtunded this morning. He is easily arousable but still sounds confused. Question uremia element. Otherwise, dialysis has been instituted and his creatinine is slowly decreasing. No significant chest pain but the patient is somewhat sedated at this time. Objective - Vital Signs Vital signs: Vital Signs Temp 99 F 09/13/16 03:27 Pulse 102 H 09/13/16 03:27 Resp 16 09/13/16 03:27 BP 128/69 09/13/16 03:27 Pulse Ox 93 L 09/13/16 03:27 Intake & Output 09/12/16 09/13/16 09/13/16 18:59 06:59 18:59 Intake Total 300 Output Total 175 300 Balance 125 -300 Weight 143 kg Intake: Oral 300 Output: Urine 175 300 Other: Voiding Method Indwelling Catheter Indwelling Catheter - Constitutional General appearance: Present: disheveled, morbidly obese. Absent: cooperative - EENT Eyes: Absent: scleral icterus - Neck Neck: Absent: lymphadenopathy - Respiratory Respiratory: bilateral: CTA - Cardiovascular Rhythm: irregularly irregular Heart sounds: normal: S1, S2 - Gastrointestinal General gastrointestinal: Present: soft. Absent: tenderness - Integumentary Integumentary: Present: cellulitis - Labs CBC & Chem 7: 09/12/16 05:41 09/13/16 05:43 Labs: Abnormal Lab Results - Last 24 Hours (Table) 09/12/16 09/12/16 09/12/16 Range/Units 11:42 16:43 20:39 BUN (9-20) mg/dL Creatinine (0.66-1.25) mg/dL Glucose (74-99) mg/dL POC Glucose (mg/dL) 72 L 154 H 132 H (75-99) mg/dL 09/13/16 09/13/16 Range/Units 05:43 05:49 BUN 38 H (9-20) mg/dL Creatinine 5.02 H* (0.66-1.25) mg/dL Glucose 108 H (74-99) mg/dL POC Glucose (mg/dL) 100 H (75-99) mg/dL Microbiology - Last 24 Hours (Table) 09/07/16 17:56 Blood Culture - Preliminary Blood No Growth after 120 hours Assessment and Plan (1) Acute kidney injury Status: Acute (2) Cellulitis of right leg Status: Acute (3) Chronic a-fib Status: Chronic (4) Congestive heart failure Status: Acute (5) Generalized weakness Status: Acute (6) Pulmonary HTN Status: Acute (7) Sundowning Status: Acute (8) Acute on chronic kidney failure Status: Acute Plan: Question again, element of toxic encephalopathy. Check CMP and PT/INR in a.m. Appreciate an nephrology input. Continue dialyzing the patient. Prognosis is guarded. Continue antibiotics for cellulitis/osteomyelitis. Time with Patient: Less than 30
[2016-09-13] MEDS: DAPTOmycin 500 MG in SODIUM CHLORIDE 0.9% 50 ML IV SCH (11:53)
[2016-09-13 12:05] LABS: Glucose,Whole Blood 113 mg/dL (75-99)
[2016-09-13] MEDS: ASPIRIN 81 MG CHEW PO SCH (12:47)
[2016-09-13] MEDS: GABAPENTIN 300 MG CAP PO SCH ×2 (12:47→21:03)
[2016-09-13] MEDS: NYSTATIN 100,000 UNIT/ML SUSP 500,000 UNIT/5 ML CUP PO SCH ×4 (12:47→21:32)
[2016-09-13] MEDS: NIACIN TR 500 MG CAPSULE.ER PO SCH (12:47)
[2016-09-13] MEDS: METOPROLOL TARTRATE 50 MG TAB PO SCH ×2 (12:47→21:03)
[2016-09-13] MEDS: THIAMINE 100 MG TAB PO SCH ×2 (12:47→21:03)
[2016-09-13] MEDS: ALLOPURINOL 100 MG TAB PO SCH (12:47)
[2016-09-13] MEDS: buPROPion XL 300 MG TAB.ER.24H PO SCH (12:47)
[2016-09-13] MEDS: FENOFIBRATE 160 MG TAB PO SCH (12:47)
[2016-09-13] MEDS: CYANOCOBALAMIN 500 MCG TAB PO SCH (12:48)
--- NOTE | 2016-09-13 15:13 | PN ---
Patient is seen for followup for acute kidney injury. He has been dialyzed 3 times thus far. Patient has had an increase in his urine output, but his creatinine remains elevated. His last dialysis was on 09/11/2016. Serum creatinine did go up actually again from 4.4 yesterday to 5.02. There are no nephrotoxic agents on board at this time. Patient is volume overloaded and has an indwelling Harris catheter. On examination, he is sleeping, he is arousable. He is not in acute distress. He is confused. Blood pressure is 155/90, heart rate 120 per minute. He is afebrile. Examination of the heart, S1 and S2. Examination of the lungs, bilateral breath sounds are heard. Abdomen is soft, obese, nontender. Examination of lower extremities shows cellulitis bilaterally with chronic skin changes, chronic edema noted. Labs show serum creatinine at 5.0, sodium 142, potassium 4.0. ASSESSMENT: 1. Acute kidney injury secondary to sepsis, nonoliguric, status post 3 treatments of hemodialysis. The patient will most likely be dialyzed again tomorrow. He has had a fair amount of urine output, but his creatinine is again higher today. I will also start him on Lasix. 2. Volume overload and increased lower extremity edema, add loop diuretics and will try for increase UF with hemodialysis tomorrow. 3. Bilateral lower extremity cellulitis. 4. Chronic atrial fibrillation. PLAN: Repeat hemodialysis today as patient's mentation has not significantly improved and add Lasix.
[2016-09-13 15:54] LABS: C-ANCA <1:20 Titer (<1:20); P-ANCA <1:20 Titer (<1:20)
[2016-09-13] MEDS: DILTIAZEM 125 MG in SODIUM CHLORIDE 0.9% 100 ML IV SCH (16:12)
[2016-09-13 16:44] LABS: Glucose,Whole Blood 106 mg/dL (75-99)
[2016-09-13] MEDS: WARFARIN 1 MG TAB PO SCH (18:36)
[2016-09-13 20:46] LABS: Glucose,Whole Blood 94 mg/dL (75-99)
[2016-09-13] MEDS: FUROSEMIDE 10 MG/ML 4 ML VIAL IV SCH (21:02)
[2016-09-13] MEDS: QUEtiapine 25 MG TAB PO PRN (21:03)
[2016-09-13] MEDS: FINASTERIDE 5 MG TAB PO SCH (21:03)
[2016-09-13] MEDS: COLLAGENASE 250 UNIT/GM OINTMENT 30 GM TUBE TOPICAL SCH (23:54)
[2016-09-14] MEDS: traMADol 50 MG TAB PO SCH ×3 (01:34→16:05)
[2016-09-14 05:43] LABS: Glucose,Whole Blood 90 mg/dL (75-99)
[2016-09-14 06:30] LABS: INR 1.6 (<1.1); Prothrombin Time 15.7 sec (9.0-12.0)
[2016-09-14 06:45] LABS: Calcium 8.7 mg/dL (8.4-10.2); Potassium 4.2 mmol/L (3.5-5.1); Total Bilirubin 1.1 mg/dL (0.2-1.3); Total Protein 6.7 g/dL (6.3-8.2)
--- NOTE | 2016-09-14 08:33 | P.PN ---
Subjective Principal diagnosis: The patient is here for continuing care. This is a continue present on a 61-year-old white male essentially admitted for altered mental status. He's been having significant feet confusion. Question uremia element versus toxic encephalopathy. He has an underlying history of chronic cellulitis, atrial fibrillation and acute renal failure. I am starting to get concerned because of his inability to "wake up." Nutritional status is becoming quite a concern. We will check portal chest x-ray today. The patient continues to be on daptomycin for appropriate cellulitis/osteomyelitis treatment of the lower extremities Objective - Vital Signs Vital signs: Vital Signs Temp 98.6 F 09/14/16 04:00 Pulse 95 09/14/16 04:00 Resp 20 09/14/16 04:00 BP 137/87 09/14/16 04:00 Pulse Ox 95 09/14/16 04:00 Intake & Output 09/13/16 09/14/16 09/14/16 18:59 06:59 18:59 Intake Total 110 0 Output Total 1100 Balance 110 -1100 0 Weight 143 kg 148.5 kg Intake: Intake, IV Titration 110 Amount Diltiazem 125 mg In 10 Sodium Chloride 0.9% 100 ml @ 5 MG/HR 5 mls/hr IV .Q24H [facility] Rx#:[id number] cefTRIAXone 1,000 mg In 100 Sodium Chloride 0.9% 50 ml @ 100 mls/hr IVPB DAILY [facility] Rx#:[id number] Oral 0 Output: Urine 1100 Other: Voiding Method Indwelling Catheter Indwelling Catheter - Constitutional General appearance: Present: obese - EENT Eyes: Absent: abnormal pupil - Respiratory Respiratory: bilateral: diminished - Cardiovascular Rhythm: irregularly irregular Heart sounds: normal: S1, S2 - Gastrointestinal General gastrointestinal: Present: soft. Absent: tenderness - Integumentary Integumentary: Present: cellulitis - Musculoskeletal Musculoskeletal: Present: generalized weakness - Psychiatric Psychiatric: Absent: A&O x's 3, intact judgment & insight - Labs CBC & Chem 7: 09/12/16 05:41 09/14/16 05:50 Labs: Abnormal Lab Results - Last 24 Hours (Table) 09/13/16 09/13/16 09/14/16 Range/Units 11:57 16:41 05:50 PT (9.0-12.0) sec BUN 32 H (9-20) mg/dL Creatinine 4.60 H (0.66-1.25) mg/dL POC Glucose (mg/dL) 113 H 106 H (75-99) mg/dL Albumin 3.2 L (3.5-5.0) g/dL 09/14/16 Range/Units 05:53 PT 15.7 H (9.0-12.0) sec BUN (9-20) mg/dL Creatinine (0.66-1.25) mg/dL POC Glucose (mg/dL) (75-99) mg/dL Albumin (3.5-5.0) g/dL Microbiology - Last 24 Hours (Table) 09/07/16 17:56 Blood Culture - Final Blood No Growth after 144 hours Assessment and Plan (1) Acute kidney injury Status: Acute (2) Cellulitis of right leg Status: Acute (3) Chronic a-fib Status: Chronic (4) Congestive heart failure Status: Acute (5) Generalized weakness Status: Acute (6) Pulmonary HTN Status: Acute (7) Sundowning Status: Acute (8) Acute on chronic kidney failure Status: Acute Plan: Check CBC, CMP and PT/INR in a.m. Consult dietary. Question need for parenteral nutrition. Appreciate input from cardiology and nephrology. Again, prognosis is guarded secondary to his multiple comorbidities her See orders otherwise. Time with Patient: Greater than 30
[2016-09-14] MEDS: NICOTINE 21MG/24HR PATCH TRANSDERM SCH (09:05)
[2016-09-14] MEDS: FUROSEMIDE 10 MG/ML 4 ML VIAL IV SCH ×2 (09:05→22:03)
[2016-09-14] MEDS: METOPROLOL TARTRATE 50 MG TAB PO SCH ×2 (09:05→22:04)
[2016-09-14] MEDS: NIACIN TR 500 MG CAPSULE.ER PO SCH (09:05)
[2016-09-14] MEDS: ALLOPURINOL 100 MG TAB PO SCH (09:06)
[2016-09-14] MEDS: buPROPion XL 300 MG TAB.ER.24H PO SCH (09:06)
[2016-09-14] MEDS: SEVELAMER 800 MG TAB PO SCH ×3 (09:06→17:49)
[2016-09-14] MEDS: ASPIRIN 81 MG CHEW PO SCH (09:06)
[2016-09-14] MEDS: GABAPENTIN 300 MG CAP PO SCH ×2 (09:06→22:04)
[2016-09-14] MEDS: NYSTATIN 100,000 UNIT/ML SUSP 500,000 UNIT/5 ML CUP PO SCH ×4 (09:26→22:03)
[2016-09-14] MEDS: FENOFIBRATE 160 MG TAB PO SCH (09:26)
[2016-09-14] MEDS: THIAMINE 100 MG TAB PO SCH ×2 (09:26→22:04)
--- NOTE | 2016-09-14 09:51 | XR ---
EXAMINATION TYPE: XR chest 1V portable DATE OF EXAM: 09/14/2016 COMPARISON: 09/07/2016 HISTORY: pneumonia TECHNIQUE: Single frontal view of the chest is obtained. FINDINGS: Airspace disease persists in the right mid lung. There is no pleural effusion, or pneumoth orax seen. The cardiac silhouette size is stable, the heart is enlarged. Left-sided PICC line shows the distal tip overlying the region of the innominate vein. Patient is rotated. The osseous structur es are intact. IMPRESSION: Findings compatible with pneumonia, follow-up to resolution.
[2016-09-14 11:55] LABS: Glucose,Whole Blood 90 mg/dL (75-99)
--- NOTE | 2016-09-14 13:15 | CDI ---
In responding to this query, please exercise your independent professional judgment. The [facility] Coding Staff and Clinical Documentation Specialists appreciate your assistance in clarifying documentation, maintaining compliance with coding guidelines, accurately documenting patients condition and capturing severity of illness. The fact that a question is asked does not imply that any particular answer is desired or expected. Communication forms are a method of clarifying documentation and are not made part of the Legal Health Record. Thank you in advance for your clarification. Last Revision, June [address] [place] [address] Documentation Clarification Form Date: 09/14/2016 12:56:00 PM From: Amanda Franklin CCS, CCDS Admit Date: 09/07/2016 8:36:00 PM Patient Name: Brandon Nunez Visit Number: [id number] Discharge Date: Dr. Clayton Erwin: CHF is documented in the ED note as "... CXR shows likely signs of congestive heart failure". Per Cardiology consult: Comes in with mental status changes, leg edema & some SOB with a diagnosis of congestive heart failure". History/Risk Factors: CHF nos, DM, bilateral leg venous stasis, Morbid Obesity, Chronic A Fib. Home Lasix 40 mg BID. Clinical Indicators: Recently discharged. Presented from F with altered mental status & elevated Creatinine. Has bilateral lower extremity erythema, severe weakness, Severe 2+ pitting bilateral legs. VS/Pulse OX: P 59*, PO 97 3Lnc Echocardiogram Results: Left ventricular systolic function low normal w/EF between 50-55%. Chest X Ray: Correlate for congestive heart failure. Treatment: po Lasix 40 mg day #1, IV Lasix 80 mg day #2, IV Lasix 40 mg q12 on . Consults: Cardiology, Nephrology, Infectious Disease In your professional opinion, can you please clarify the acuity and type of CHF if known? Systolic Heart Failure: Acute Chronic Acute on Chronic Diastolic Heart Failure: Acute Chronic Acute on Chronic Systolic & Diastolic Heart Failure: Acute Chronic Acute on Chronic Unable to determine Other, please specify Please document in your progress notes and discharge summary in order to capture severity of illness and risk of mortality. Include clinical findings that support your diagnosis. FYI: Press F11 to launch patient chart. Place X here if this finding has no clinical significance, is not applicable or if you are not able to provide any additional documentation. Thank You. MTDD
[2016-09-14] MEDS: CYANOCOBALAMIN 500 MCG TAB PO SCH (16:04)
[2016-09-14 17:02] LABS: Glucose,Whole Blood 86 mg/dL (75-99)
[2016-09-14] MEDS: WARFARIN 1 MG TAB PO SCH (17:48)
[2016-09-14] MEDS: DILTIAZEM 125 MG in SODIUM CHLORIDE 0.9% 100 ML IV SCH (17:49)
[2016-09-14 21:12] LABS: Glucose,Whole Blood 85 mg/dL (75-99)
--- NOTE | 2016-09-14 21:57 | PN ---
Patient is seen for followup for acute kidney injury for which patient is currently maintained on dialysis. His mentation has is not significantly improved and he has had 4 treatments of hemodialysis thus far. Patient will be dialyzed again tomorrow. He has had a fair amount of urine output, been about 1100 mL thus far. The patient has been started on Lasix as well. On examination, he is currently sleeping, restless. Blood pressure is 146/84, heart rate 84 per minute. He is afebrile. HEART: S1 and S2. LUNGS: Bilateral breath sounds are heard. ABDOMEN: Soft, obese, nontender. Lower extremities show cellulitis, chronic skin changes, chronic edema 2+ bilaterally. TRAVELIFT OPERATOR shows patient has been moving all 4 extremities. Labs show sodium 141, potassium 4.2, chloride 106, BUN 32, serum creatinine 4.6. ASSESSMENT: 1. Acute kidney injury, possibly acute tubular necrosis. All serologies currently negative. Urine for eosinophils was negative for acute interstitial nephritis. Patient remains hemodialysis-dependent. His creatinine is still staying in the 4.5 to 5 mg/dL range, although he has had good urine output. Mentation has not improved significantly. Patient will have his 5th hemodialysis treatment tomorrow. Currently, he has a right femoral South catheter. 2. Encephalopathy, possibly uremic; however, one would expect in improvement in mentation by now if it was only uremic encephalopathy. 3. Cellulitis, lower extremity, mainly right leg. Currently maintained on daptomycin and Rocephin. 4. Benign prostatic hypertrophy, currently with indwelling Harris catheter, maintained on Proscar. 5. Volume overload, slowly improving. Continue with IV Lasix. We will also try for a UF of about 1 L to 2 L with every treatment. 6. Hyperphosphatemia, maintained on Renvela. 7. Atrial fibrillation with controlled ventricular response currently. 8. Moderately dilated left atrium on echocardiogram with moderate pulmonary hypertension. 9. Concentric left ventricular hypertrophy noted on echocardiogram. PLAN: Repeat hemodialysis in a.m. Continue with IV Lasix. Consider kidney biopsy down the road.
[2016-09-14] MEDS: FINASTERIDE 5 MG TAB PO SCH (22:04)
[2016-09-14] MEDS: COLLAGENASE 250 UNIT/GM OINTMENT 30 GM TUBE TOPICAL SCH (22:06)
[2016-09-15] MEDS: traMADol 50 MG TAB PO SCH ×4 (05:15→23:24)
[2016-09-15 06:18] LABS: Glucose,Whole Blood 81 mg/dL (75-99)
[2016-09-15 06:23] LABS: INR 1.7 (<1.1)
[2016-09-15 06:26] LABS: Calcium 8.7 mg/dL (8.4-10.2); Potassium 4.4 mmol/L (3.5-5.1); Total Bilirubin 1.4 mg/dL (0.2-1.3); Total Protein 7.1 g/dL (6.3-8.2)
[2016-09-15] MEDS: SEVELAMER 800 MG TAB PO SCH ×3 (06:34→17:43)
[2016-09-15] MEDS: NICOTINE 21MG/24HR PATCH TRANSDERM SCH (08:04)
[2016-09-15] MEDS: FUROSEMIDE 10 MG/ML 4 ML VIAL IV SCH ×2 (08:05→20:46)
[2016-09-15] MEDS: ASPIRIN 81 MG CHEW PO SCH (08:05)
[2016-09-15] MEDS: buPROPion XL 300 MG TAB.ER.24H PO SCH (08:05)
[2016-09-15] MEDS: THIAMINE 100 MG TAB PO SCH ×2 (08:05→20:47)
[2016-09-15] MEDS: NYSTATIN 100,000 UNIT/ML SUSP 500,000 UNIT/5 ML CUP PO SCH ×4 (08:05→20:46)
[2016-09-15] MEDS: GABAPENTIN 300 MG CAP PO SCH ×2 (08:06→20:46)
[2016-09-15] MEDS: FENOFIBRATE 160 MG TAB PO SCH (08:06)
[2016-09-15] MEDS: NIACIN TR 500 MG CAPSULE.ER PO SCH (08:07)
[2016-09-15] MEDS: CYANOCOBALAMIN 500 MCG TAB PO SCH (08:07)
[2016-09-15] MEDS: METOPROLOL TARTRATE 50 MG TAB PO SCH ×2 (08:07→20:46)
[2016-09-15] MEDS: ALLOPURINOL 100 MG TAB PO SCH (08:09)
[2016-09-15] MEDS: DAPTOmycin 500 MG in SODIUM CHLORIDE 0.9% 50 ML IV SCH (09:10)
[2016-09-15 11:39] LABS: Anisocytosis Slight; Basophils # (A) 0.1 k/uL (0-0.2); Basophils % (A) 1 %; CH 29.2; CHCM 28.9; Eosinophils # (A) 0.7 k/uL (0-0.7); Eosinophils % (A) 6 %; HCT 40.5 % (39.0-53.0); HGB 11.9 gm/dL (13.0-17.5); Hypochromasia Marked; Luc % (Auto) 4; Lymphocytes # (A) 1.1 k/uL (1.0-4.8); Lymphocytes % (A) 10 %; MCH 29.8 pg (25.0-35.0); MCHC 29.3 g/dL (31.0-37.0); Macrocytosis Moderate; Mean Platelet Volume 8.8; Monocytes # (A) 0.6 k/uL (0-1.0); Monocytes % (A) 6 %; Neutrophils # (A) 7.5 k/uL (1.3-7.7); Neutrophils % (A) 73 %; Poikilocytosis Slight; RBC 3.97 m/uL (4.30-5.90); RDW 17.1 % (11.5-15.5); WBC 10.4 k/uL (3.8-10.6); WBC (Perox) 11.04
[2016-09-15 11:41] LABS: Glucose,Whole Blood 85 mg/dL (75-99)
--- NOTE | 2016-09-15 12:46 | PN ---
Patient is seen for followup for acute kidney injury. He remains encephalopathic. He has not been talking much. Patient has had episodes of laughter. He has not been eating much. He has an indwelling Harris catheter with good urine output. He has been dialyzed. He has had 4 dialysis treatments and is scheduled for his fifth treatment today. On examination, blood pressure is 137/77, heart rate 98 per minute. He is afebrile. Examination of the heart, S1, S2. Examination of the lungs, bilateral breath sounds are heard. Abdomen is soft, obese, nontender. Examination of lower extremities shows bilateral chronic skin changes with cellulitis. Bilateral extremities are wrapped. There is scrotal edema noted. Overall erythema seems to have improved. Labs show sodium 144, potassium 4.4, serum creatinine 4.97, BUN 36, hemoglobin 11.9 g/dL. ASSESSMENT: 1. Acute kidney injury, most likely acute tubular necrosis, currently nonoliguric with improved urine output; however, serum creatinine remains elevated and patient remains dialysis dependent. All his serologies are negative and urine eosinophil is negative as well. There is no evidence of obstructive uropathy. The mentation has not improved significantly. 2. Encephalopathy, initially thought to be uremic but no improvement with 4 dialysis treatments so far. Patient is scheduled for a fifth treatment today. 3. Volume overload, slightly improved. May continue with the Lasix. Will try for about 2 L again with hemodialysis today. 4. Chronic atrial fibrillation with controlled ventricular response. 5. Type 2 diabetes. 6. Hypertension, currently controlled. PLAN: Hemodialysis today, will need to change the dialysis catheter to an IJ Perm-A-Cath, as it is currently in the right femoral vein. I see that the patient is on Coumadin and at this time he looks like he is dialysis-dependent. He will need to plan for an IJ Perm-A-Cath placement and need to adjust the Coumadin for the INR once we have a date for the surgery.
--- NOTE | 2016-09-15 12:59 | P.PN ---
Subjective Principal diagnosis: Altered mental status. This is a continuing progress note on a 61-year-old white male essentially admitted for altered mental status. He is still having difficulty because of acute renal failure. Dialysis has been instituted, but he is still disoriented. He seems to be more arousable today than yesterday. We have stopped Seroquel at the 's request and are trying not to give him anything mind altering. She has requested that Dr. Vincent Mendez reconsults with for his lower extremities. No fever or chills are stated. No new voiding difficulties are noted. Objective - Vital Signs Vital signs: Vital Signs Temp 99.0 F 09/15/16 08:00 Pulse 98 09/15/16 08:00 Resp 18 09/15/16 08:00 BP 137/77 09/15/16 08:00 Pulse Ox 93 L 09/15/16 08:00 Intake & Output 09/14/16 09/15/16 09/15/16 18:59 06:59 18:59 Intake Total 0 0 Output Total 800 700 Balance -800 -700 0 Weight 147.5 kg Intake: Oral 0 0 Output: Urine 800 700 Other: Voiding Method Indwelling Catheter Indwelling Catheter Indwelling Catheter - Constitutional General appearance: Present: obese - EENT Eyes: Present: abnormal pupil - Neck Neck: Present: lymphadenopathy - Respiratory Respiratory: bilateral: diminished - Cardiovascular Rhythm: irregularly irregular Heart sounds: normal: S1, S2 - Gastrointestinal General gastrointestinal: Present: soft. Absent: tenderness - Integumentary Integumentary: Present: cellulitis - Labs CBC & Chem 7: 09/15/16 05:35 09/15/16 05:35 Labs: Abnormal Lab Results - Last 24 Hours (Table) 09/15/16 09/15/16 09/15/16 Range/Units 05:35 05:35 05:35 RBC 3.97 L (4.30-5.90) m/uL Hgb 11.9 L (13.0-17.5) gm/dL MCV 102.0 H (80.0-100.0) fL MCHC 29.3 L (31.0-37.0) g/dL RDW 17.1 H (11.5-15.5) % PT 16.0 H (9.0-12.0) sec BUN 36 H (9-20) mg/dL Creatinine 4.97 H (0.66-1.25) mg/dL Total Bilirubin 1.4 H (0.2-1.3) mg/dL ALT 16 L (21-72) U/L Albumin 3.2 L (3.5-5.0) g/dL Assessment and Plan (1) Acute kidney injury Status: Acute (2) Cellulitis of right leg Status: Acute (3) Chronic a-fib Status: Chronic (4) Congestive heart failure Status: Acute (5) Generalized weakness Status: Acute (6) Pulmonary HTN Status: Acute (7) Sundowning Status: Acute (8) Acute on chronic kidney failure Status: Acute Plan: Again, I'm getting quite concerned about his lack of by mouth intake. Dietary has been counseled that. I am worried that each day that he does not slowly improve, that we will need to consider TPN versus tube feeding. Reconsult Dr. Kaur. Check CBC and CMP in a.m. Prognosis is guarded. Time with Patient: Greater than 30
[2016-09-15] MEDS: DILTIAZEM 125 MG in SODIUM CHLORIDE 0.9% 100 ML IV SCH (15:52)
[2016-09-15] MEDS ORDERED: HEPARIN SODIUM,PORCINE 5,000 UNIT/ML 1 ML VIAL ONE (16:15)
[2016-09-15 16:39] LABS: Glucose,Whole Blood 80 mg/dL (75-99)
[2016-09-15] MEDS: WARFARIN 1 MG TAB PO SCH (17:43)
--- NOTE | 2016-09-15 18:06 | P.CONS ---
History of Present Illness - Reason for Consult Consult date: 09/15/16 - Chief Complaint Right diabetic foot ulcer - History of Present Illness 61-year-old male who has multiple medical troubles that include diabetes noticed type II poorly controlled, coronary artery disease, congestive heart failure, COPD with CO2 retention and respiratory failure. In the recent past as had difficulties with a nonhealing diabetic foot ulcer that has been followed by the vascular surgeon. Despite local care and have been worsening. He was hospitalized last month with sepsis. He also had atrial fibrillation with RVR and respiratory failure that required many days of BiPAP therapy. Eventually had some improvement and was sent to rehab facility. Apparently within several days he had worsening of his status increasing edema and developed acute renal failure. He is doing poorly at this point in time. His mental status is very poor, similar to when he was having respiratory failure. He's been seen by neurology in the past and thought to be metabolic in nature. He's had a significant right diabetic foot ulceration that evaluation revealed evidence of osteomyelitis. Receiving intravenous antibiotic therapy, cefepime and daptomycin were requested it appears he is receiving Rocephin. Review of Systems ROS unobtainable: due to mental status Past Medical History Past Medical History: Atrial Fibrillation, Diabetes Mellitus, Eye Disorder, Hearing Disorder / Deafness, Hyperlipidemia, Hypertension, Osteoarthritis (OA), Prostate Disorder, Sleep Apnea/CPAP/BIPAP, Vascular Disorder Additional Past Medical History / Comment(s): Pt fell 01/06/16 R humeral fracture. Other HX: NIDDM, irritable bowel syndrome, numerous wounds bilateral legs and feet and an abdominal wound after previous hernia surgery with mesh - has been tx in wound center and has had several debridements, currently being treated in wound center for bilateral lower leg ulcers, charcot Lfoot, hx of diabetic villareal grade 2 bilateral foot ulcers, abdominal wall ulceration with I&D, urinary calculus., BPH, bilateral hands and feet peripheral neuropathy, L eye astigmatism, edentulous. History of Any Multi-Drug Resistant Organisms: MRSA, VRE Year Discovered:: 08/19/16 VRE; 02/15/16 MRSA MDRO Source:: Heel VRE; Legs-MRSA Past Surgical History: Bladder Surgery, Hernia Repair, Tonsillectomy Additional Past Surgical History / Comment(s): I and D abdominal wall ulcer s/p abdominal hernia repair with mesh-infected post op and mesh exposed, wound center tx for bilateral feet ulcers-healed and discharged 03/25/14, current wound center tx for bilateral lower leg ulcers, picc line insertion and removal , cystoscopy which was unsuccessful for removing bladder stone. Past Anesthesia/Blood Transfusion Reactions: No Reported Reaction Past Psychological History: Anxiety, Depression Additional Psychological History / Comment(s): At the beginning of the last admission he was an ongoing daily tobacco smoker. Denies difficulty with alcohol use. Denies recreational drug use.He is on medical care home.To begin travels. No animal exposures. Ambulates with cane. Not able to drive as of late. During the last day he developed DVTs in the related he drank heavily on a daily basis. The patient's relates that he does not take care of himself at home. He sits most the day. Does no activity. He was smoking cigarettes quite heavily and drinking lots of alcohol and not monitoring his diabetes or his caloric intake. 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 Smoking Status: Current some day smoker Past Alcohol Use History: Occasional Additional Past Alcohol Use History / Comment(s): Pt states he started smoking in 1972 and is about a ppd smoker. Pt states he drinks every couple days- a couple whiskeys. Past Drug Use History: None Reported - Past Family History Brother(s) Family Medical History: Cancer Additional Family Medical History / Comment(s): Breast cancer Father Family Medical History: Diabetes Mellitus Additional Family Medical History / Comment(s): Father of a brain tumor in his early 80s Mother Family Medical History: No Reported History Additional Family Medical History / Comment(s): Still living. Medications and Allergies Home Medications and Allergies Comment(s): Current Medications Acetaminophen (Tylenol Tab) 650 mg PO Q6HR PRN PRN Reason: Mild Pain or Fever > 100.5 Allopurinol (Zyloprim) 100 mg PO DAILY [facility] Last Admin: 09/15/16 08:09 Dose: 100 mg Aspirin (Aspirin) 81 mg PO DAILY [facility] Last Admin: 09/15/16 08:05 Dose: 81 mg Bupropion HCl (Wellbutrin Xl) 300 mg PO DAILY [facility] Last Admin: 09/15/16 08:05 Dose: 300 mg Collagenase (Santyl) 1 applic TOPICAL HS [facility] Last Admin: 09/14/16 22:06 Dose: 1 applic Cyanocobalamin (Vitamin B-12) 1,000 mcg PO DAILY@1200 [facility] Last Admin: 09/15/16 08:07 Dose: 1,000 mcg Fenofibrate (Lofibra) 160 mg PO DAILY [facility] Last Admin: 09/15/16 08:06 Dose: 160 mg Finasteride (Proscar) 5 mg PO HS [facility] Last Admin: 09/14/16 22:04 Dose: 5 mg Furosemide (Lasix) 40 mg IV Q12HR [facility] Last Admin: 09/15/16 08:05 Dose: 40 mg Gabapentin (Neurontin) 300 mg PO BID [facility] Last Admin: 09/15/16 08:06 Dose: 300 mg Ceftriaxone Sodium 1,000 mg/ (Sodium Chloride) 50 mls @ 100 mls/hr IVPB DAILY [facility] Last Admin: 09/15/16 08:10 Dose: 100 mls/hr Daptomycin 500 mg/ Sodium (Chloride) 50 mls @ 100 mls/hr IV Q48H [facility] Last Admin: 09/15/16 09:10 Dose: 100 mls/hr Diltiazem HCl 125 mg/ Sodium (Chloride) 125 mls @ 5 mls/hr IV .Q24H [facility] PRN Reason: 5 MG/HR Last Admin: 09/15/16 15:52 Dose: 5 mg/hr, 5 mls/hr Metoprolol Tartrate (Lopressor) 50 mg PO BID [facility] Last Admin: 09/15/16 08:07 Dose: 50 mg Naloxone HCl (Narcan) 0.2 mg IV Q2M PRN PRN Reason: Opioid Reversal Niacin (Niacin Tr) 500 mg PO DAILY [facility] Last Admin: 09/15/16 08:07 Dose: 500 mg Nicotine (Habitrol 21mg/24hr Patch) 1 patch TRANSDERM DAILY [facility] Last Admin: 09/15/16 08:04 Dose: 1 patch Nystatin (Mycostatin Oral Susp) 500,000 unit PO QID [facility] Last Admin: 09/15/16 17:44 Dose: 500,000 unit Olanzapine (Zyprexa Zydis) 5 mg PO HS PRN PRN Reason: Agitation Ondansetron HCl (Zofran) 4 mg IVP Q8HR PRN PRN Reason: Nausea And Vomiting Last Admin: 09/10/16 15:16 Dose: 4 mg Quetiapine Fumarate (Seroquel) 25 mg PO HS PRN PRN Reason: Agitation Last Admin: 09/13/16 21:03 Dose: 25 mg Sevelamer Carbonate (Renvela) 800 mg PO TID-W/MEALS [facility] Last Admin: 09/15/16 17:43 Dose: 800 mg Thiamine HCl (Vitamin B-1) 100 mg PO BID [facility] Last Admin: 09/15/16 08:05 Dose: 100 mg Tramadol HCl (Ultram) 50 mg PO Q8HR [facility] Last Admin: 09/15/16 15:53 Dose: Not Given Warfarin Sodium (Coumadin) 1 mg PO DAILY@1800 [facility] Last Admin: 09/15/16 17:43 Dose: 1 mg Home Medications Medication Instructions Recorded Confirmed Type Fenofibrate Nanocrystallized 145 mg PO DAILY 07/27/16 09/07/16 History [Tricor] Finasteride [Proscar] 5 mg PO HS 07/27/16 09/07/16 History Gabapentin [Neurontin] 300 mg PO BID 07/27/16 09/07/16 History Metoprolol Tartrate [Lopressor] 100 mg PO BID 07/27/16 09/07/16 History Niacin [Niacin ER] 500 mg PO DAILY 07/27/16 09/07/16 History Allopurinol [Zyloprim] 100 mg PO DAILY 08/15/16 09/07/16 History Furosemide [Lasix] 40 mg PO BID 08/15/16 09/07/16 History Spironolactone [Aldactone] 25 mg PO DAILY 08/15/16 09/07/16 History buPROPion HCL [Wellbutrin XL] 300 mg PO DAILY 08/15/16 09/07/16 History Diltiazem Oral [Cardizem*] 60 mg PO Q6HR 09/07/16 09/07/16 History traMADol HCl [Ultram] 50 mg PO Q8HR 09/07/16 09/07/16 History Allergies Allergy/AdvReac Type Severity Reaction Status Date / Time sulfamethoxazole Allergy Rash/Hives Verified 09/07/16 23:47 [From Bactrim] trimethoprim [From Bactrim] Allergy Rash/Hives Verified 09/07/16 23:47 Physical Exam Vitals: Vital Signs Temp Pulse Pulse Resp BP Pulse Ox 09/15/16 16:00 97.0 F L 88 18 113/70 93 L 09/15/16 12:00 97.0 F L 75 18 142/73 93 L 09/15/16 08:00 99.0 F 98 18 137/77 93 L 09/15/16 04:00 98.4 F 92 92 22 136/78 90 L 09/14/16 23:40 98.4 F 88 20 136/71 92 L 09/14/16 20:00 98.6 F 95 22 143/80 96 Intake and Output 09/15/16 09/15/16 09/15/16 06:59 14:59 22:59 Intake Total 0 Output Total 500 Balance -500 0 Intake: Oral 0 Output: Urine 500 Other: Voiding Method Indwelling Catheter Indwelling Catheter Indwelling Catheter Weight 147.5 kg 61 year-old male who suffers from obesity. He seems comfortable but does not interact well with the observer. Despite stimulation he does not talk and his only very brief eye opening. At one time during the exam he appears to be dreaming and is laughing out loud a bit HEENT: Anicteric conjunctiva are pink and moist nasal mucosa grossly intact without significant lesions, there is no thrush. Dentition is warm for age. Neck: The neck is supple without significant lymphadenopathy or thyromegaly. Lungs: Symmetrical air entry is noted with evidence of expiratory wheezes that are scattered. No julian bronchial sounds were noted. No egophony or dullness. Heart: Irregular with an audible S1 and S2, no S3 soft S4, no new murmur click or rub. Abdomen: Obese, Positive bowel sounds soft and nontender without palpable masses or organomegaly. There was no guarding or rebound. Evidence of the prior abdominal surgeries noted. At the most superior aspect of the surgical incision is evidence of some hyper-granulation tissue. At the base of the hyperventilation tissue is exposed mesh. Extremities: There is bilateral lower extremity edema. There some erythema to both lower extremities. Much more prominent on the right lower extremity from the knee distally. There is evidence of the significant ulceration to the heel that measures at 7.1 x 5.2 x 0.4 cm. There is extensive necrosis at present. There is some gross purulence is also seen. There is now a satellite ulcer laterally on the foot is also drinks improvement material when the heel is manipulated. Neuro: The patient is encephalopathic. He does not respond well to stimulation. Does not seem to be uncomfortable. No active seizures. Results CBC & Chem 7: 09/15/16 05:35 09/15/16 05:35 Labs: Abnormal Lab Results - Last 24 Hours (Table) 09/15/16 09/15/16 09/15/16 Range/Units 05:35 05:35 05:35 RBC 3.97 L (4.30-5.90) m/uL Hgb 11.9 L (13.0-17.5) gm/dL MCV 102.0 H (80.0-100.0) fL MCHC 29.3 L (31.0-37.0) g/dL RDW 17.1 H (11.5-15.5) % PT 16.0 H (9.0-12.0) sec BUN 36 H (9-20) mg/dL Creatinine 4.97 H (0.66-1.25) mg/dL Total Bilirubin 1.4 H (0.2-1.3) mg/dL ALT 16 L (21-72) U/L Albumin 3.2 L (3.5-5.0) g/dL Laboratory Results WBC 10.4 k/uL (3.8-10.6) 09/15/16 05:35 RBC 3.97 m/uL (4.30-5.90) L 09/15/16 05:35 Hgb 11.9 gm/dL (13.0-17.5) L 09/15/16 05:35 Hct 40.5 % (39.0-53.0) 09/15/16 05:35 MCV 102.0 fL (80.0-100.0) H 09/15/16 05:35 MCH 29.8 pg (25.0-35.0) 09/15/16 05:35 MCHC 29.3 g/dL (31.0-37.0) L 09/15/16 05:35 RDW 17.1 % (11.5-15.5) H 09/15/16 05:35 Plt Count 308 k/uL (150-450) 09/15/16 05:35 Neutrophils % 73 % 09/15/16 05:35 Lymphocytes % 10 % 09/15/16 05:35 Monocytes % 6 % 09/15/16 05:35 Eosinophils % 6 % 09/15/16 05:35 Basophils % 1 % 09/15/16 05:35 Neutrophils # 7.5 k/uL (1.3-7.7) 09/15/16 05:35 Lymphocytes # 1.1 k/uL (1.0-4.8) 09/15/16 05:35 Monocytes # 0.6 k/uL (0-1.0) 09/15/16 05:35 Eosinophils # 0.7 k/uL (0-0.7) 09/15/16 05:35 Basophils # 0.1 k/uL (0-0.2) 09/15/16 05:35 Hypochromasia Marked 09/15/16 05:35 Poikilocytosis Slight 09/15/16 05:35 Anisocytosis Slight 09/15/16 05:35 Macrocytosis Moderate 09/15/16 05:35 PT 16.0 sec (9.0-12.0) H 09/15/16 05:35 INR 1.7 (<1.1) 09/15/16 05:35 APTT 56.9 sec (22.0-30.0) H 09/07/16 17:56 Sodium 144 mmol/L (137-145) 09/15/16 05:35 Potassium 4.4 mmol/L (3.5-5.1) 09/15/16 05:35 Chloride 105 mmol/L (98-107) 09/15/16 05:35 Carbon Dioxide 24 mmol/L (22-30) 09/15/16 05:35 Anion Gap 15 mmol/L 09/15/16 05:35 BUN 36 mg/dL (9-20) H 09/15/16 05:35 Creatinine 4.97 mg/dL (0.66-1.25) H 09/15/16 05:35 Est GFR (MDRD) Af Amer 14 (>60 ml/min/1.73 sqM) 09/15/16 05:35 Est GFR (MDRD) Non-Af 12 (>60 ml/min/1.73 sqM) 09/15/16 05:35 Glucose 88 mg/dL (74-99) 09/15/16 05:35 POC Glucose (mg/dL) 80 mg/dL (75-99) 09/15/16 16:37 POC Glu [employer] ID Camille Del Cid 09/15/16 16:37 Calcium 8.7 mg/dL (8.4-10.2) 09/15/16 05:35 Phosphorus 9.2 mg/dL (2.5-4.5) H* 09/08/16 05:46 Magnesium 1.9 mg/dL (1.6-2.3) 09/08/16 05:46 Total Bilirubin 1.4 mg/dL (0.2-1.3) H 09/15/16 05:35 AST 20 U/L (17-59) 09/15/16 05:35 ALT 16 U/L (21-72) L 09/15/16 05:35 Alkaline Phosphatase 82 U/L (38-126) 09/15/16 05:35 Ammonia 35 umol/L (<30) H 09/07/16 17:56 Total Creatine Kinase 23 U/L (55-170) L 09/08/16 05:46 CK-MB (CK-2) 2.3 ng/mL (0.0-2.4) 09/08/16 05:46 CK-MB (CK-2) Rel Index 10.0 09/08/16 05:46 Troponin I 0.022 ng/mL (0.000-0.034) 09/08/16 05:46 Total Protein 7.1 g/dL (6.3-8.2) 09/15/16 05:35 Albumin 3.2 g/dL (3.5-5.0) L 09/15/16 05:35 Urine Color Yellow 09/07/16 20:45 Urine Appearance Cloudy (Clear) 09/07/16 20:45 Urine pH 6.0 (5.0-8.0) 09/07/16 20:45 Ur Specific [place] 1.015 (1.001-1.035) 09/07/16 20:45 Urine Protein 3+ (Negative) H 09/07/16 20:45 Urine Glucose (UA) Negative (Negative) 09/07/16 20:45 Urine Ketones Negative (Negative) 09/07/16 20:45 Urine Blood Moderate (Negative) H 09/07/16 20:45 Urine Nitrite Negative (Negative) 09/07/16 20:45 Urine Bilirubin Negative (Negative) 09/07/16 20:45 Urine Urobilinogen <2.0 mg/dL (<2.0) 09/07/16 20:45 Ur Leukocyte Esterase Large (Negative) H 09/07/16 20:45 Urine RBC 63 /hpf (0-5) H 09/07/16 20:45 Urine WBC 90 /hpf (0-5) H 09/07/16 20:45 Urine WBC Clumps Many /hpf (None) H 09/07/16 20:45 Hyaline Casts 3 /lpf (0-2) H 09/07/16 20:45 Urine Mucus Rare /hpf (None) H 09/07/16 20:45 Urine Eosinophils 0 % 09/09/16 00:45 LYNSEY Screen NEGATIVE (NEGATIVE) 09/10/16 06:38 c-ANCA <1:20 Titer (<1:20) 09/10/16 06:38 p-ANCA <1:20 Titer (<1:20) 09/10/16 06:38 Double Strand DNA Ab NEGATIVE (NEGATIVE) 09/10/16 06:38 Anti-DNA Ab Interp <1.0 IU/mL 09/10/16 06:38 Complement C3 132 mg/dL (88-165) 09/10/16 06:38 Complement C4 38 mg/dL (14-44) 09/10/16 06:38 Hep Bs Antigen Negative 09/10/16 06:38 Hep Bs Antibody Negative (Negative) 09/09/16 06:18 Hep B Core Total Ab Non-Reactive (Non-Reactive) 09/08/16 05:46 Hep C IgG Ab Negative (Negative) 09/10/16 06:38 Microbiology 09/07/16 17:56 Blood Blood Culture - Final No Growth after 144 hours 09/08/16 16:45 Urine,Catheterized Urine Culture - Final Radhika albicans Wound culture last stay showed Citrobacter freundii, Enterococcus faecalis which was VRE. Citrobacter was quite drug-resistant. Assessment and Plan (1) Acute on chronic kidney failure Status: Acute (2) Diabetic ulcer of foot associated with diabetes mellitus due to underlying condition, with necrosis of bone Narrative/Plan: 61-year-old male who has many medical troubles includes diabetes mellitus type 2 uncontrolled with multiple complications including osteitis to heal. With his chronic renal insufficiency that has become acute renal failure requiring hemodialysis as causes status to worsen even further. The heel ulceration has become more infected with more tissue necrosis. We'll ask for the vascular surgeon to come by for further surgical debridement may need amputation. Antibiotic therapy will be utilized based on the prior cultures and cefepime, daptomycin, and micafungin will be utilized at the moment. Is noted during his last stay his prognosis is very poor. Fortunately his respiratory status is slightly better possibly due to the hemodialysis and improvement of his acid base status His mental status is poor his pro time likely metabolic from his underlying acute on chronic renal failure and sepsis from the right foot. Status: Acute (3) Smoking Status: Acute (4) Morbid obesity Status: Acute
[2016-09-15] MEDS: MICAFUNGIN 100 MG in SODIUM CHLORIDE 0.9% 100 ML IVPB SCH (20:38)
[2016-09-15] MEDS: FINASTERIDE 5 MG TAB PO SCH (20:46)
[2016-09-15] MEDS: COLLAGENASE 250 UNIT/GM OINTMENT 30 GM TUBE TOPICAL SCH (20:47)
[2016-09-15 21:21] LABS: Glucose,Whole Blood 93 mg/dL (75-99)
[2016-09-15] MEDS: CEFEPIME 0.5 GM in SODIUM CHLORIDE 0.9% 50 ML IVPB SCH (22:26)
[2016-09-16 06:15] LABS: Glucose,Whole Blood 83 mg/dL (75-99)
[2016-09-16 06:36] LABS: Calcium 8.7 mg/dL (8.4-10.2); Potassium 4.2 mmol/L (3.5-5.1); Total Bilirubin 1.3 mg/dL (0.2-1.3); Total Protein 7.2 g/dL (6.3-8.2)
[2016-09-16] MEDS: SEVELAMER 800 MG TAB PO SCH ×3 (06:38→17:22)
[2016-09-16 06:43] LABS: INR 1.8 (<1.1)
--- NOTE | 2016-09-16 08:26 | P.PN ---
Subjective Principal diagnosis: Altered mental status. This is a continue progress on a 61-year-old white male essentially admitted for altered mental status related to acute on chronic renal failure with some modest cellulitis. His wound is becoming a little bit worse but I suspect his mental status is more related to infection and renal failure. He has an underlying history of atrial fibrillation and fairly well-controlled diabetes. Multiple consultants including infectious disease, vascular surgery and nephrology are on the case. Respiratory status has improved. At this point, we are concerned about possible need for PEG tube for feeding. Nursing staff is stated to me that his is agreeable to this if necessary. Objective - Vital Signs Vital signs: Vital Signs Temp 96.9 F L 09/16/16 04:00 Pulse 83 09/16/16 04:00 Resp 18 09/16/16 04:00 BP 122/67 09/16/16 04:00 Pulse Ox 94 L 09/16/16 04:00 Intake & Output 09/15/16 09/16/16 09/16/16 18:59 06:59 18:59 Intake Total 0 330 Output Total 300 500 Balance -300 -170 Intake: IV 330 0.9 120 Cefepime 0.5 gm In Sodium 50 Chloride 0.9% 50 ml @ 100 mls/hr IVPB DAILY@ 2000 [facility] Rx#:[id number] Diltiazem 125 mg In 60 Sodium Chloride 0.9% 100 ml @ 5 MG/HR 5 mls/hr IV .Q24H [facility] Rx#:[id number] Micafungin 100 mg In 100 Sodium Chloride 0.9% 100 ml @ 100 mls/hr IVPB DAILY@1900 [facility] Rx#: [id number] Oral 0 0 Output: Urine 300 500 Uretheral (Harris) 100 Other: Voiding Method Indwelling Catheter Indwelling Catheter # Voids 1 # Bowel Movements 1 - Constitutional General appearance: Present: obese - EENT Eyes: Absent: abnormal pupil - Neck Neck: Absent: lymphadenopathy - Respiratory Respiratory: bilateral: diminished - Cardiovascular Rhythm: irregularly irregular Heart sounds: normal: S1, S2 - Gastrointestinal General gastrointestinal: Present: soft. Absent: tenderness - Neurologic Neurologic Comment(s): The patient is arousablle to sternal rub. - Labs CBC & Chem 7: 09/15/16 05:35 09/16/16 05:44 Labs: Abnormal Lab Results - Last 24 Hours (Table) 09/15/16 09/16/16 09/16/16 Range/Units 05:35 05:44 05:44 RBC 3.97 L (4.30-5.90) m/uL Hgb 11.9 L (13.0-17.5) gm/dL MCV 102.0 H (80.0-100.0) fL MCHC 29.3 L (31.0-37.0) g/dL RDW 17.1 H (11.5-15.5) % PT 17.0 H (9.0-12.0) sec BUN 29 H (9-20) mg/dL Creatinine 4.47 H (0.66-1.25) mg/dL AST 16 L (17-59) U/L ALT 16 L (21-72) U/L Albumin 3.3 L (3.5-5.0) g/dL Assessment and Plan (1) Acute kidney injury Status: Acute (2) Cellulitis of right leg Status: Acute (3) Chronic a-fib Status: Chronic (4) Congestive heart failure Status: Acute (5) Generalized weakness Status: Acute (6) Pulmonary HTN Status: Acute (7) Sundowning Status: Acute (8) Acute on chronic kidney failure Status: Acute (9) Nutrition deficiency due to insufficient food Status: Acute Plan: Given his overall medical comorbidities, his prognosis is quite poor. We need to entertain possible feeding tube and permanent dialysis catheter. I was hopeful that with temporary dialysis that his mental status would improve, but this has not been the case. I suspect his orientation or disorientation is related to his infection and renal failure. I plan to have a discussion with the as far as how much further to proceed. Question need for hospice consultation versus permanent dialysis catheter, possible amputation and feeding tube. Check CBC and CMP in a.m. Time with Patient: Greater than 30
[2016-09-16] MEDS: GABAPENTIN 300 MG CAP PO SCH ×2 (11:08→21:10)
[2016-09-16] MEDS: NICOTINE 21MG/24HR PATCH TRANSDERM SCH (11:08)
[2016-09-16] MEDS: traMADol 50 MG TAB PO SCH ×3 (11:08→23:06)
[2016-09-16] MEDS: FUROSEMIDE 10 MG/ML 4 ML VIAL IV SCH ×2 (11:08→21:08)
[2016-09-16] MEDS: buPROPion XL 300 MG TAB.ER.24H PO SCH (11:09)
[2016-09-16] MEDS: METOPROLOL TARTRATE 50 MG TAB PO SCH ×2 (11:09→21:09)
[2016-09-16] MEDS: NIACIN TR 500 MG CAPSULE.ER PO SCH (11:09)
[2016-09-16] MEDS: FENOFIBRATE 160 MG TAB PO SCH (11:09)
[2016-09-16] MEDS: ASPIRIN 81 MG CHEW PO SCH (11:09)
[2016-09-16] MEDS: THIAMINE 100 MG TAB PO SCH ×2 (11:10→21:11)
[2016-09-16] MEDS: NYSTATIN 100,000 UNIT/ML SUSP 500,000 UNIT/5 ML CUP PO SCH ×4 (11:10→21:11)
[2016-09-16] MEDS: ALLOPURINOL 100 MG TAB PO SCH (11:10)
--- NOTE | 2016-09-16 11:16 | CDI ---
In responding to this query, please exercise your independent professional judgment. The [facility] Coding Staff and Clinical Documentation Specialists appreciate your assistance in clarifying documentation, maintaining compliance with coding guidelines, accurately documenting patients condition and capturing severity of illness. The fact that a question is asked does not imply that any particular answer is desired or expected. Communication forms are a method of clarifying documentation and are not made part of the Legal Health Record. Thank you in advance for your clarification. Last Revision, June 2015 Roman Rhoades [address] [facility] [place] [address] Documentation Clarification Form Date: 09/16/2016 11:01:00 AM From: Amanda Franklin CCS, CCDS Admit Date: 09/07/2016 8:36:00 PM Patient Name: Brandon Nunez Visit Number: [id number] Discharge Date: Dr. Rafita Kaur: Osteomyelitis has been documented in the attending & nephrology notes as well as in the recent Infectious Disease Consult on 09/15 as: Diabetic ulcer of foot ( right) associated with diabetes melittus due to underlying condition, with necrosis of bone, DM uncontrolled with multiple complications including osteomyelitis to heel. It is noted in H&P that the patient has been treated previously for osteomyelitis. Clinical Indicators: History of nonhealing diabetic foot ulcer, follows with vascular surgeon, worsening despite local care. Patient is obese with uncontrolled diabetes. Labs: WBC 11.6, Neut 8.8 Treatment: IV abx: Daptomycin, Rocephin and Cefepime. Infectious Disease consulted and also Vascular surgery for evaluation of possible debridement and/ or amputation. In your professional opinion, please specify the osteomyelitis as: Acuity: Acute Chronic Subacute Unable to Determine Please document in your progress notes and discharge summary in order to capture severity of illness and risk of mortality. Include clinical findings that support your diagnosis. FYI: Press F11 to launch patient chart Place X here if this finding has no clinical significance, is not applicable or if you are not able to provide any additional documentation. Thank You. MENA
--- NOTE | 2016-09-16 11:20 | P.PN ---
Subjective Patient is seen in follow-up for acute kidney injury. He remains dialysis dependent. He received hemodialysis yesterday. This morning his oxygen requirements are higher. He only made 100 mL of urine overnight. He remains encephalopathic. Vital signs are stable. General: The patient appeared well nourished and normally developed. Confused. Lethargic. HEENT: Head exam is unremarkable. Neck is without jugular venous distension. LUNGS: Lungs are clear to auscultation and percussion. Breath sounds decreased. HEART: Rate and Rhythm are regular. First and second heart sounds normal. No murmurs, rubs or gallops. ABDOMEN: Abdominal exam reveals normal bowel sounds. Non-tender and non- distended. No evidence of peritonitis. EXTREMITITES: 1+ edema. Objective - Vital Signs Vital signs: Vital Signs Temp 96.9 F L 09/16/16 04:00 Pulse 78 09/16/16 08:00 Resp 18 09/16/16 04:00 BP 112/87 09/16/16 08:00 Pulse Ox 94 L 09/16/16 08:00 Intake & Output 09/15/16 09/16/16 09/16/16 18:59 06:59 18:59 Intake Total 0 330 Output Total 300 500 Balance -300 -170 Intake: IV 330 0.9 120 Cefepime 0.5 gm In Sodium 50 Chloride 0.9% 50 ml @ 100 mls/hr IVPB DAILY@ 2000 [facility] Rx#:[id number] Diltiazem 125 mg In 60 Sodium Chloride 0.9% 100 ml @ 5 MG/HR 5 mls/hr IV .Q24H [facility] Rx#:[id number] Micafungin 100 mg In 100 Sodium Chloride 0.9% 100 ml @ 100 mls/hr IVPB DAILY@1900 [facility] Rx#: [id number] Oral 0 0 Output: Urine 300 500 Uretheral (Harris) 100 Other: Voiding Method Indwelling Catheter Indwelling Catheter # Voids 1 # Bowel Movements 1 - Labs CBC & Chem 7: 09/15/16 05:35 09/16/16 05:44 Labs: Abnormal Lab Results - Last 24 Hours (Table) 09/15/16 09/16/16 09/16/16 Range/Units 05:35 05:44 05:44 RBC 3.97 L (4.30-5.90) m/uL Hgb 11.9 L (13.0-17.5) gm/dL MCV 102.0 H (80.0-100.0) fL MCHC 29.3 L (31.0-37.0) g/dL RDW 17.1 H (11.5-15.5) % PT 17.0 H (9.0-12.0) sec BUN 29 H (9-20) mg/dL Creatinine 4.47 H (0.66-1.25) mg/dL AST 16 L (17-59) U/L ALT 16 L (21-72) U/L Albumin 3.3 L (3.5-5.0) g/dL Assessment and Plan Plan: Assessment: #1. Acute kidney injury secondary likely secondary to ischemic ATN. Remains dialysis dependent. Urine output only 100 mL overnight. Serologic workup negative. #2. Encephalopathy. Initially thought to be uremic however no improvement post dialysis. #3. Volume overload. #4. Atrial fibrillation. Rate controlled. #5. Diabetes mellitus. Plan: Hemodialysis today with goal 2 liters ultrafiltration. There have been talks about hospice however the is not ready. He will need a permacath if continuing with care at this time. Maintain Lasix and continue to monitor urine output.
[2016-09-16 11:38] LABS: Glucose,Whole Blood 91 mg/dL (75-99)
[2016-09-16] MEDS: CYANOCOBALAMIN 500 MCG TAB PO SCH (12:56)
[2016-09-16 16:43] LABS: Glucose,Whole Blood 80 mg/dL (75-99)
[2016-09-16] MEDS: WARFARIN 1 MG TAB PO SCH (17:22)
--- NOTE | 2016-09-16 17:22 | P.PN ---
Progress Note - Text 61-year-old white male, patient is known to me from the past from the wound clinic he has history of for chronic venous hypertension with the post endovenous laser ablation of the great saphenous vein in the past he has history of 4 diabetes history of acute chronic renal failure we put a tunnel catheter right femoral approach patient is not responding he has some encephalopathy patient is on dialysis he has a large wound on the right heel with some mild drainage noted patient is an IV antibiotic there is a possibility of osteo-mellitus of the right calcaneus bone I will discuss with the and the family about further management patient may end up with the major amputation also have discuss with nephrology they wanted to put a right IJ catheter for dialysis and weight recommendation from the family then we'll proceed
[2016-09-16] MEDS ORDERED: HEPARIN SODIUM,PORCINE 5,000 UNIT/ML 1 ML VIAL ONE (17:48)
[2016-09-16] MEDS: DILTIAZEM 125 MG in SODIUM CHLORIDE 0.9% 100 ML IV SCH (18:40)
[2016-09-16] MEDS: MICAFUNGIN 100 MG in SODIUM CHLORIDE 0.9% 100 ML IVPB SCH (18:43)
--- NOTE | 2016-09-16 20:37 | P.PN ---
Subjective Principal diagnosis: Right diabetic foot ulcer 61-year-old male who has multiple medical troubles that include diabetes noticed type II poorly controlled, coronary artery disease, congestive heart failure, COPD with CO2 retention and respiratory failure. In the recent past as had difficulties with a nonhealing diabetic foot ulcer that has been followed by the vascular surgeon. Despite local care and have been worsening. He was hospitalized last month with sepsis. He also had atrial fibrillation with RVR and respiratory failure that required many days of BiPAP therapy. Eventually had some improvement and was sent to rehab facility. Apparently within several days he had worsening of his status increasing edema and developed acute renal failure. He is doing poorly at this point in time. His mental status is very poor, similar to when he was having respiratory failure. He's been seen by neurology in the past and thought to be metabolic in nature. He's had a significant right diabetic foot ulceration that evaluation revealed evidence of osteomyelitis. Has been seen by Dr. Delgado, and contemplating amputation. Objective - Vital Signs Vital signs: Vital Signs Temp 96.9 F L 09/16/16 04:00 Pulse 82 09/16/16 16:00 Resp 18 09/16/16 04:00 BP 159/84 09/16/16 16:00 Pulse Ox 94 L 09/16/16 20:12 Intake & Output 09/16/16 09/16/16 09/17/16 06:59 18:59 06:59 Intake Total 330 175 Output Total 500 250 Balance -170 -75 Weight 145.5 kg 147.5 kg Intake: IV 330 50 0.9 120 50 Cefepime 0.5 gm In Sodium 50 Chloride 0.9% 50 ml @ 100 mls/hr IVPB DAILY@ 1999 [facility] Rx#:[id number] Diltiazem 125 mg In 60 Sodium Chloride 0.9% 100 ml @ 5 MG/HR 5 mls/hr IV .Q24H [facility] Rx#:[id number] Micafungin 100 mg In 100 Sodium Chloride 0.9% 100 ml @ 100 mls/hr IVPB DAILY@1900 [facility] Rx#: [id number] Intake, IV Titration 125 Amount Diltiazem 125 mg In 125 Sodium Chloride 0.9% 100 ml @ 5 MG/HR 5 mls/hr IV .Q24H [facility] Rx#:[id number] Oral 0 Output: Urine 500 250 Uretheral (Harris) 100 Other: Voiding Method Indwelling Catheter Indwelling Catheter # Voids 1 # Bowel Movements 1 - Exam 61 year-old male who suffers from obesity. He seems comfortable but does not interact well with the observer. Despite stimulation he does not talk and his only very brief eye opening. At one time during the exam he appears to be dreaming and is laughing out loud a bit HEENT: Anicteric conjunctiva are pink and moist nasal mucosa grossly intact without significant lesions, there is no thrush. Dentition is warm for age. Neck: The neck is supple without significant lymphadenopathy or thyromegaly. Lungs: Symmetrical air entry is noted with evidence of expiratory wheezes that are scattered. No julian bronchial sounds were noted. No egophony or dullness. Heart: Irregular with an audible S1 and S2, no S3 soft S4, no new murmur click or rub. Abdomen: Obese, Positive bowel sounds soft and nontender without palpable masses or organomegaly. There was no guarding or rebound. Evidence of the prior abdominal surgeries noted. At the most superior aspect of the surgical incision is evidence of some hyper-granulation tissue. At the base of the hyperventilation tissue is exposed mesh. Extremities: There is bilateral lower extremity edema. There some erythema to both lower extremities. Much more prominent on the right lower extremity from the knee distally. There is evidence of the significant ulceration to the heel that measures at 7.1 x 5.2 x 0.4 cm. There is extensive necrosis at present. There is some gross purulence is also seen. There is now a satellite ulcer laterally on the foot is also drinks improvement material when the heel is manipulated. Neuro: The patient is encephalopathic. He does not respond well to stimulation. Does not seem to be uncomfortable. No active seizures. - Labs CBC & Chem 7: 09/15/16 05:35 09/16/16 05:44 Labs: Abnormal Lab Results - Last 24 Hours (Table) 09/16/16 09/16/16 Range/Units 05:44 05:44 PT 17.0 H (9.0-12.0) sec BUN 29 H (9-20) mg/dL Creatinine 4.47 H (0.66-1.25) mg/dL AST 16 L (17-59) U/L ALT 16 L (21-72) U/L Albumin 3.3 L (3.5-5.0) g/dL Laboratory Results WBC 10.4 k/uL (3.8-10.6) 09/15/16 05:35 RBC 3.97 m/uL (4.30-5.90) L 09/15/16 05:35 Hgb 11.9 gm/dL (13.0-17.5) L 09/15/16 05:35 Hct 40.5 % (39.0-53.0) 09/15/16 05:35 MCV 102.0 fL (80.0-100.0) H 09/15/16 05:35 MCH 29.8 pg (25.0-35.0) 09/15/16 05:35 MCHC 29.3 g/dL (31.0-37.0) L 09/15/16 05:35 RDW 17.1 % (11.5-15.5) H 09/15/16 05:35 Plt Count 308 k/uL (150-450) 09/15/16 05:35 Neutrophils % 73 % 09/15/16 05:35 Lymphocytes % 10 % 09/15/16 05:35 Monocytes % 6 % 09/15/16 05:35 Eosinophils % 6 % 09/15/16 05:35 Basophils % 1 % 09/15/16 05:35 Neutrophils # 7.5 k/uL (1.3-7.7) 09/15/16 05:35 Lymphocytes # 1.1 k/uL (1.0-4.8) 09/15/16 05:35 Monocytes # 0.6 k/uL (0-1.0) 09/15/16 05:35 Eosinophils # 0.7 k/uL (0-0.7) 09/15/16 05:35 Basophils # 0.1 k/uL (0-0.2) 09/15/16 05:35 Hypochromasia Marked 09/15/16 05:35 Poikilocytosis Slight 09/15/16 05:35 Anisocytosis Slight 09/15/16 05:35 Macrocytosis Moderate 09/15/16 05:35 PT 17.0 sec (9.0-12.0) H 09/16/16 05:44 INR 1.8 (<1.1) 09/16/16 05:44 APTT 56.9 sec (22.0-30.0) H 09/07/16 17:56 Sodium 143 mmol/L (137-145) 09/16/16 05:44 Potassium 4.2 mmol/L (3.5-5.1) 09/16/16 05:44 Chloride 104 mmol/L (98-107) 09/16/16 05:44 Carbon Dioxide 26 mmol/L (22-30) 09/16/16 05:44 Anion Gap 13 mmol/L 09/16/16 05:44 BUN 29 mg/dL (9-20) H 09/16/16 05:44 Creatinine 4.47 mg/dL (0.66-1.25) H 09/16/16 05:44 Est GFR (MDRD) Af Amer 16 (>60 ml/min/1.73 sqM) 09/16/16 05:44 Est GFR (MDRD) Non-Af 13 (>60 ml/min/1.73 sqM) 09/16/16 05:44 Glucose 88 mg/dL (74-99) 09/16/16 05:44 POC Glucose (mg/dL) 80 mg/dL (75-99) 09/16/16 16:41 POC Glu Site Safety Coordinator ID Camille Del Cid 09/16/16 16:41 Calcium 8.7 mg/dL (8.4-10.2) 09/16/16 05:44 Phosphorus 9.2 mg/dL (2.5-4.5) H* 09/08/16 05:46 Magnesium 1.9 mg/dL (1.6-2.3) 09/08/16 05:46 Total Bilirubin 1.3 mg/dL (0.2-1.3) 09/16/16 05:44 AST 16 U/L (17-59) L 09/16/16 05:44 ALT 16 U/L (21-72) L 09/16/16 05:44 Alkaline Phosphatase 77 U/L (38-126) 09/16/16 05:44 Ammonia 35 umol/L (<30) H 09/07/16 17:56 Total Creatine Kinase 23 U/L (55-170) L 09/08/16 05:46 CK-MB (CK-2) 2.3 ng/mL (0.0-2.4) 09/08/16 05:46 CK-MB (CK-2) Rel Index 10.0 09/08/16 05:46 Troponin I 0.022 ng/mL (0.000-0.034) 09/08/16 05:46 Total Protein 7.2 g/dL (6.3-8.2) 09/16/16 05:44 Albumin 3.3 g/dL (3.5-5.0) L 09/16/16 05:44 Urine Color Yellow 09/07/16 20:45 Urine Appearance Cloudy (Clear) 09/07/16 20:45 Urine pH 6.0 (5.0-8.0) 09/07/16 20:45 Ur Specific Kane 1.015 (1.001-1.035) 09/07/16 20:45 Urine Protein 3+ (Negative) H 09/07/16 20:45 Urine Glucose (UA) Negative (Negative) 09/07/16 20:45 Urine Ketones Negative (Negative) 09/07/16 20:45 Urine Blood Moderate (Negative) H 09/07/16 20:45 Urine Nitrite Negative (Negative) 09/07/16 20:45 Urine Bilirubin Negative (Negative) 09/07/16 20:45 Urine Urobilinogen <2.0 mg/dL (<2.0) 09/07/16 20:45 Ur Leukocyte Esterase Large (Negative) H 09/07/16 20:45 Urine RBC 63 /hpf (0-5) H 09/07/16 20:45 Urine WBC 90 /hpf (0-5) H 09/07/16 20:45 Urine WBC Clumps Many /hpf (None) H 09/07/16 20:45 Hyaline Casts 3 /lpf (0-2) H 09/07/16 20:45 Urine Mucus Rare /hpf (None) H 09/07/16 20:45 Urine Eosinophils 0 % 09/09/16 00:45 LYNSEY Screen NEGATIVE (NEGATIVE) 09/10/16 06:38 c-ANCA <1:20 Titer (<1:20) 09/10/16 06:38 p-ANCA <1:20 Titer (<1:20) 09/10/16 06:38 Double Strand DNA Ab NEGATIVE (NEGATIVE) 09/10/16 06:38 Anti-DNA Ab Interp <1.0 IU/mL 09/10/16 06:38 Complement C3 132 mg/dL (88-165) 09/10/16 06:38 Complement C4 38 mg/dL (14-44) 09/10/16 06:38 Hep Bs Antigen Negative 09/10/16 06:38 Hep Bs Antibody Negative (Negative) 09/09/16 06:18 Hep B Core Total Ab Non-Reactive (Non-Reactive) 09/08/16 05:46 Hep C IgG Ab Negative (Negative) 09/10/16 06:38 Microbiology 09/07/16 17:56 Blood Blood Culture - Final No Growth after 144 hours 09/08/16 16:45 Urine,Catheterized Urine Culture - Final Radhika albicans Assessment and Plan (1) Acute on chronic kidney failure Status: Acute (2) Diabetic ulcer of foot associated with diabetes mellitus due to underlying condition, with necrosis of bone Narrative/Plan: 61-year-old male who has many medical troubles includes diabetes mellitus type 2 uncontrolled with multiple complications including osteitis to heal. With his chronic renal insufficiency that has become acute renal failure requiring hemodialysis as causes status to worsen even further. The heel ulceration has become more infected with more tissue necrosis. We'll ask for the vascular surgeon to come by for further surgical debridement may need amputation. Antibiotic therapy will be utilized based on the prior cultures and cefepime, daptomycin, and micafungin will be utilized at the moment. Is noted during his last stay his prognosis is very poor. Fortunately his respiratory status is slightly better possibly due to the hemodialysis and improvement of his acid base status His mental status is poor is likely metabolic from his underlying acute on chronic renal failure and sepsis from the right foot. Status: Acute (3) Smoking Status: Acute (4) Morbid obesity Status: Acute
[2016-09-16 21:03] LABS: Glucose,Whole Blood 71 mg/dL (75-99)
[2016-09-16] MEDS: FINASTERIDE 5 MG TAB PO SCH (21:08)
[2016-09-16] MEDS: CEFEPIME 0.5 GM in SODIUM CHLORIDE 0.9% 50 ML IVPB SCH (21:20)
[2016-09-16] MEDS: COLLAGENASE 250 UNIT/GM OINTMENT 30 GM TUBE TOPICAL SCH (23:14)
[2016-09-17 06:19] LABS: Glucose,Whole Blood 75 mg/dL (75-99)
--- NOTE | 2016-09-17 08:05 | CDI ---
In responding to this query, please exercise your independent professional judgment. The [facility] Coding Staff and Clinical Documentation Specialists appreciate your assistance in clarifying documentation, maintaining compliance with coding guidelines, accurately documenting patients condition and capturing severity of illness. The fact that a question is asked does not imply that any particular answer is desired or expected. Communication forms are a method of clarifying documentation and are not made part of the Legal Health Record. Thank you in advance for your clarification. Last Revision, June 2016 Roman Rhoades [address] [facility] [place] [address] Documentation Clarification Form Date: 09/14/2016 12:56:00 PM From: Amanda Franklin CCS, CCDS Admit Date: 09/07/2016 8:36:00 PM Patient Name: Brandon Nunez Visit Number: [id number] Discharge Date: Dr. Clayton Erwin: CHF is documented in the ED note as "... CXR shows likely signs of congestive heart failure". Per Cardiology consult: Comes in with mental status changes, leg edema & some SOB with a diagnosis of congestive heart failure". History/Risk Factors: CHF nos, DM, bilateral leg venous stasis, Morbid Obesity, Chronic A Fib. Home Lasix 40 mg BID. Clinical Indicators: Recently discharged. Presented from F with altered mental status & elevated Creatinine. Has bilateral lower extremity erythema, severe weakness, Severe 2+ pitting bilateral legs. VS/Pulse OX: P 59*, PO 97 3Lnc Echocardiogram Results: Left ventricular systolic function low normal w/EF between 50-55%. Chest X Ray: Correlate for congestive heart failure. Treatment: po Lasix 40 mg day #1, IV Lasix 80 mg day #2, IV Lasix 40 mg q12 on . Consults: Cardiology, Nephrology, Infectious Disease In your professional opinion, can you please clarify the acuity and type of CHF if known? Systolic Heart Failure: Acute Chronic Acute on Chronic Diastolic Heart Failure: Acute Chronic Acute on Chronic Systolic & Diastolic Heart Failure: Acute Chronic Acute on Chronic Unable to determine Other, please specify Please document in your progress notes and discharge summary in order to capture severity of illness and risk of mortality. Include clinical findings that support your diagnosis. FYI: Press F11 to launch patient chart. Place X here if this finding has no clinical significance, is not applicable or if you are not able to provide any additional documentation. Thank You. MTDD
[2016-09-17] MEDS: SEVELAMER 800 MG TAB PO SCH ×3 (09:33→17:30)
[2016-09-17] MEDS: traMADol 50 MG TAB PO SCH ×3 (09:34→23:34)
[2016-09-17] MEDS: DAPTOmycin 500 MG in SODIUM CHLORIDE 0.9% 50 ML IV SCH (09:35)
[2016-09-17] MEDS: FUROSEMIDE 10 MG/ML 4 ML VIAL IV SCH ×2 (09:35→20:57)
[2016-09-17] MEDS: NICOTINE 21MG/24HR PATCH TRANSDERM SCH (09:35)
[2016-09-17] MEDS: buPROPion XL 300 MG TAB.ER.24H PO SCH (11:43)
[2016-09-17] MEDS: GABAPENTIN 300 MG CAP PO SCH (11:43)
[2016-09-17 11:44] LABS: Glucose,Whole Blood 81 mg/dL (75-99)
[2016-09-17] MEDS ORDERED: predniSONE 20 MG TAB PO SCH (12:30)
--- NOTE | 2016-09-17 12:54 | P.PN ---
Subjective Principal diagnosis: Right diabetic foot ulcer 61-year-old male who has multiple medical troubles that include diabetes noticed type II poorly controlled, coronary artery disease, congestive heart failure, COPD with CO2 retention and respiratory failure. In the recent past as had difficulties with a nonhealing diabetic foot ulcer that has been followed by the vascular surgeon. Despite local care and have been worsening. He was hospitalized last month with sepsis. He also had atrial fibrillation with RVR and respiratory failure that required many days of BiPAP therapy. Eventually had some improvement and was sent to rehab facility. Apparently within several days he had worsening of his status increasing edema and developed acute renal failure. He is doing poorly at this point in time. His mental status is very poor, similar to when he was having respiratory failure. He's been seen by neurology in the past and thought to be metabolic in nature. He's had a significant right diabetic foot ulceration that evaluation revealed evidence of osteomyelitis. Has been seen by Dr. Delgado, and for surgical debridement today. Patient tolerating hemodialysis well. Objective - Vital Signs Vital signs: Vital Signs Temp 97.0 F L 09/17/16 08:00 Pulse 98 09/17/16 08:00 Resp 18 09/17/16 08:00 BP 139/73 09/17/16 08:00 Pulse Ox 97 09/17/16 08:00 Intake & Output 09/16/16 09/17/16 09/17/16 18:59 06:59 18:59 Intake Total 175 220 243 Output Total 250 450 Balance -75 -230 243 Weight 147.5 kg 144 kg Intake: IV 50 220 243 0.9 50 120 Cefepime 0.5 gm In Sodium 100 100 Chloride 0.9% 50 ml @ 100 mls/hr IVPB DAILY@ 1999 [facility] Rx#:[id number] Diltiazem 125 mg In 20 23 Sodium Chloride 0.9% 100 ml @ 5 MG/HR 5 mls/hr IV .Q24H [facility] Rx#:[id number] Micafungin 100 mg In 100 Sodium Chloride 0.9% 100 ml @ 100 mls/hr IVPB DAILY@1900 [facility] Rx#: [id number] Intake, IV Titration 125 Amount Diltiazem 125 mg In 125 Sodium Chloride 0.9% 100 ml @ 5 MG/HR 5 mls/hr IV .Q24H [facility] Rx#:[id number] Output: Urine 250 450 Other: Voiding Method Indwelling Catheter Indwelling Catheter Indwelling Catheter # Voids 1 # Bowel Movements 1 - Exam 61 year-old male who suffers from obesity. He seems comfortable but does not interact well with the observer. Despite stimulation he does not talk and his only very brief eye opening. At one time during the exam he appears to be dreaming and is laughing out loud a bit HEENT: Anicteric conjunctiva are pink and moist nasal mucosa grossly intact without significant lesions, there is no thrush. Dentition is warm for age. Neck: The neck is supple without significant lymphadenopathy or thyromegaly. Lungs: Symmetrical air entry is noted with evidence of expiratory wheezes that are scattered. No julian bronchial sounds were noted. No egophony or dullness. Heart: Irregular with an audible S1 and S2, no S3 soft S4, no new murmur click or rub. Abdomen: Obese, Positive bowel sounds soft and nontender without palpable masses or organomegaly. There was no guarding or rebound. Evidence of the prior abdominal surgeries noted. At the most superior aspect of the surgical incision is evidence of some hyper-granulation tissue. At the base of the hyperventilation tissue is exposed mesh. Extremities: There is bilateral lower extremity edema. There some erythema to both lower extremities. Much more prominent on the right lower extremity from the knee distally. There is evidence of the significant ulceration to the heel that measures at 7.1 x 5.2 x 0.4 cm. There is extensive necrosis at present. There is some gross purulence is also seen. There is now a satellite ulcer laterally on the foot is also drinks improvement material when the heel is manipulated. Neuro: The patient is encephalopathic. He does not respond well to stimulation. Does not seem to be uncomfortable. No active seizures. - Labs CBC & Chem 7: 09/15/16 05:35 09/16/16 05:44 Labs: Abnormal Lab Results - Last 24 Hours (Table) 09/16/16 Range/Units 21:01 POC Glucose (mg/dL) 71 L (75-99) mg/dL Laboratory Results WBC 10.4 k/uL (3.8-10.6) 09/15/16 05:35 RBC 3.97 m/uL (4.30-5.90) L 09/15/16 05:35 Hgb 11.9 gm/dL (13.0-17.5) L 09/15/16 05:35 Hct 40.5 % (39.0-53.0) 09/15/16 05:35 MCV 102.0 fL (80.0-100.0) H 09/15/16 05:35 MCH 29.8 pg (25.0-35.0) 09/15/16 05:35 MCHC 29.3 g/dL (31.0-37.0) L 09/15/16 05:35 RDW 17.1 % (11.5-15.5) H 09/15/16 05:35 Plt Count 308 k/uL (150-450) 09/15/16 05:35 Neutrophils % 73 % 09/15/16 05:35 Lymphocytes % 10 % 09/15/16 05:35 Monocytes % 6 % 09/15/16 05:35 Eosinophils % 6 % 09/15/16 05:35 Basophils % 1 % 09/15/16 05:35 Neutrophils # 7.5 k/uL (1.3-7.7) 09/15/16 05:35 Lymphocytes # 1.1 k/uL (1.0-4.8) 09/15/16 05:35 Monocytes # 0.6 k/uL (0-1.0) 09/15/16 05:35 Eosinophils # 0.7 k/uL (0-0.7) 09/15/16 05:35 Basophils # 0.1 k/uL (0-0.2) 09/15/16 05:35 Hypochromasia Marked 09/15/16 05:35 Poikilocytosis Slight 09/15/16 05:35 Anisocytosis Slight 09/15/16 05:35 Macrocytosis Moderate 09/15/16 05:35 PT 17.0 sec (9.0-12.0) H 09/16/16 05:44 INR 1.8 (<1.1) 09/16/16 05:44 APTT 56.9 sec (22.0-30.0) H 09/07/16 17:56 Sodium 143 mmol/L (137-145) 09/16/16 05:44 Potassium 4.2 mmol/L (3.5-5.1) 09/16/16 05:44 Chloride 104 mmol/L (98-107) 09/16/16 05:44 Carbon Dioxide 26 mmol/L (22-30) 09/16/16 05:44 Anion Gap 13 mmol/L 09/16/16 05:44 BUN 29 mg/dL (9-20) H 09/16/16 05:44 Creatinine 4.47 mg/dL (0.66-1.25) H 09/16/16 05:44 Est GFR (MDRD) Af Amer 16 (>60 ml/min/1.73 sqM) 09/16/16 05:44 Est GFR (MDRD) Non-Af 13 (>60 ml/min/1.73 sqM) 09/16/16 05:44 Glucose 88 mg/dL (74-99) 09/16/16 05:44 POC Glucose (mg/dL) 81 mg/dL (75-99) 09/17/16 11:30 POC Glu Powder Shoveler Lalita Garcia 09/17/16 11:30 Calcium 8.7 mg/dL (8.4-10.2) 09/16/16 05:44 Phosphorus 9.2 mg/dL (2.5-4.5) H* 09/08/16 05:46 Magnesium 1.9 mg/dL (1.6-2.3) 09/08/16 05:46 Total Bilirubin 1.3 mg/dL (0.2-1.3) 09/16/16 05:44 AST 16 U/L (17-59) L 09/16/16 05:44 ALT 16 U/L (21-72) L 09/16/16 05:44 Alkaline Phosphatase 77 U/L (38-126) 09/16/16 05:44 Ammonia 35 umol/L (<30) H 09/07/16 17:56 Total Creatine Kinase 23 U/L (55-170) L 09/08/16 05:46 CK-MB (CK-2) 2.3 ng/mL (0.0-2.4) 09/08/16 05:46 CK-MB (CK-2) Rel Index 10.0 09/08/16 05:46 Troponin I 0.022 ng/mL (0.000-0.034) 09/08/16 05:46 Total Protein 7.2 g/dL (6.3-8.2) 09/16/16 05:44 Albumin 3.3 g/dL (3.5-5.0) L 09/16/16 05:44 Urine Color Yellow 09/07/16 20:45 Urine Appearance Cloudy (Clear) 09/07/16 20:45 Urine pH 6.0 (5.0-8.0) 09/07/16 20:45 Ur Specific [place] 1.015 (1.001-1.035) 09/07/16 20:45 Urine Protein 3+ (Negative) H 09/07/16 20:45 Urine Glucose (UA) Negative (Negative) 09/07/16 20:45 Urine Ketones Negative (Negative) 09/07/16 20:45 Urine Blood Moderate (Negative) H 09/07/16 20:45 Urine Nitrite Negative (Negative) 09/07/16 20:45 Urine Bilirubin Negative (Negative) 09/07/16 20:45 Urine Urobilinogen <2.0 mg/dL (<2.0) 09/07/16 20:45 Ur Leukocyte Esterase Large (Negative) H 09/07/16 20:45 Urine RBC 63 /hpf (0-5) H 09/07/16 20:45 Urine WBC 90 /hpf (0-5) H 09/07/16 20:45 Urine WBC Clumps Many /hpf (None) H 09/07/16 20:45 Hyaline Casts 3 /lpf (0-2) H 09/07/16 20:45 Urine Mucus Rare /hpf (None) H 09/07/16 20:45 Urine Eosinophils 0 % 09/09/16 00:45 LYNSEY Screen NEGATIVE (NEGATIVE) 09/10/16 06:38 c-ANCA <1:20 Titer (<1:20) 09/10/16 06:38 p-ANCA <1:20 Titer (<1:20) 09/10/16 06:38 Double Strand DNA Ab NEGATIVE (NEGATIVE) 09/10/16 06:38 Anti-DNA Ab Interp <1.0 IU/mL 09/10/16 06:38 Complement C3 132 mg/dL (88-165) 09/10/16 06:38 Complement C4 38 mg/dL (14-44) 09/10/16 06:38 Hep Bs Antigen Negative 09/10/16 06:38 Hep Bs Antibody Negative (Negative) 09/09/16 06:18 Hep B Core Total Ab Non-Reactive (Non-Reactive) 09/08/16 05:46 Hep C IgG Ab Negative (Negative) 09/10/16 06:38 Microbiology 09/07/16 17:56 Blood Blood Culture - Final No Growth after 144 hours 09/08/16 16:45 Urine,Catheterized Urine Culture - Final Radhika albicans Assessment and Plan (1) Acute on chronic kidney failure Status: Acute (2) Diabetic ulcer of foot associated with diabetes mellitus due to underlying condition, with necrosis of bone Narrative/Plan: 61-year-old male who has many medical troubles includes diabetes mellitus type 2 uncontrolled with multiple complications including osteitis to heal. With his chronic renal insufficiency that has become acute renal failure requiring hemodialysis as causes status to worsen even further. The heel ulceration has become more infected with more tissue necrosis. Vascular surgery has evaluated. Routine laboratory exams today for debridement concern that there will be more extensive infection and may need extensive debridement and possible amputation. Antibiotic therapy will be utilized based on the prior cultures and cefepime, daptomycin, and micafungin will be utilized at the moment. Is noted during his last stay his prognosis is very poor. Patient is appropriate for DO NOT RESUSCITATE status family continues to struggle with proceeding. Fortunately his respiratory status is slightly better possibly due to the hemodialysis and improvement of his acid base status His mental status is poor is likely metabolic from his underlying acute on chronic renal failure and sepsis from the right foot. Status: Acute (3) Smoking Status: Acute (4) Morbid obesity Status: Acute
--- NOTE | 2016-09-17 13:19 | PN ---
DATE OF SERVICE: 09/17/2016 The patient is seen for follow-up for acute kidney injury on top of chronic kidney disease. He is currently maintained on hemodialysis for nonoliguric acute kidney injury. Patient currently has a fair amount of urine output, however, his creatinine remains significantly elevated and he has been requiring dialysis, almost on a daily schedule. Mentation has not improved significantly since admission. Patient also has a wound on his right foot, for which vascular surgery has suggested amputation down the road. The CODE STATUS has been discussed with family and it appears that at this time patient's wishes to continue with FULL CODE status and continuation of renal replacement therapy. Currently patient is seen on hemodialysis. He is confused. He did have some dinner last night. He was fed. This morning he was not able to take medications. He has a right femoral dialysis catheter. Blood pressure, on examination, is 133/69, heart rate 89 per minute. He is afebrile. Examination of the heart S1 and S2. Examination of the lungs, bilateral breath sounds are heard. Abdomen is soft, obese. Examination of lower extremities shows chronic skin changes, bilateral edema, somewhat improved. Right foot is currently wrapped. Labs show serum creatinine 4.47 from 09/16/2016. Albumin was 3.3. ASSESSMENT: 1. Acute kidney injury, currently hemodialysis-dependent secondary most likely acute tubular necrosis. There was suggestion for possible acute interstitial nephritis. Urine eosinophils were negative. All serologies are negative as well. The patient is currently nonoliguric He has right femoral [place] catheter. This will need to be changed to an IJ Perm-A-Cath if we will be continuing with dialysis. I will also start the patient on empiric steroids. 2. Cellulitis, lower extremities, with right plantar wound infection with diabetic foot ulcer, which is nonhealing. Patient has been evaluated by general surgery and their recommendation were amputation. He will be going for I&D as well. 3. Volume overload, currently improved. 4. Hypertension, fairly stable. 5. Chronic atrial fibrillation with controlled ventricular response. 6. Encephalopathy, not significantly improved with initiation of renal replacement therapy. PLAN: Hemodialysis today. Change to IJ Perm-A-Cath if family continues to wish is to proceed with FULL CODE STATUS and renal replacement therapy. I will also start him on empiric steroids. We will need to consider kidney biopsy down the road. Previous creatinine was 0.9 mg/dL in July.
[2016-09-17] MEDS: ASPIRIN 81 MG CHEW PO SCH (15:58)
[2016-09-17] MEDS: METOPROLOL TARTRATE 50 MG TAB PO SCH ×2 (15:58→20:59)
[2016-09-17] MEDS: FENOFIBRATE 160 MG TAB PO SCH (15:58)
[2016-09-17] MEDS: ALLOPURINOL 100 MG TAB PO SCH (15:58)
[2016-09-17] MEDS: NIACIN TR 500 MG CAPSULE.ER PO SCH (15:59)
[2016-09-17] MEDS: NYSTATIN 100,000 UNIT/ML SUSP 500,000 UNIT/5 ML CUP PO SCH ×3 (15:59→21:00)
[2016-09-17] MEDS: THIAMINE 100 MG TAB PO SCH ×2 (15:59→21:00)
[2016-09-17] MEDS: CYANOCOBALAMIN 500 MCG TAB PO SCH (15:59)
[2016-09-17 17:14] LABS: Glucose,Whole Blood 72 mg/dL (75-99)
[2016-09-17] MEDS: WARFARIN 1 MG TAB PO SCH (17:30)
[2016-09-17] MEDS: DILTIAZEM 125 MG in SODIUM CHLORIDE 0.9% 100 ML IV SCH ×2 (17:43→18:40)
[2016-09-17] MEDS: MICAFUNGIN 100 MG in SODIUM CHLORIDE 0.9% 100 ML IVPB SCH (18:39)
[2016-09-17] MEDS: CEFEPIME 0.5 GM in SODIUM CHLORIDE 0.9% 50 ML IVPB SCH (20:25)
[2016-09-17] MEDS: COLLAGENASE 250 UNIT/GM OINTMENT 30 GM TUBE TOPICAL SCH (20:28)
[2016-09-17] MEDS: FINASTERIDE 5 MG TAB PO SCH (20:57)
[2016-09-17 21:04] LABS: Glucose,Whole Blood 71 mg/dL (75-99)
--- NOTE | 2016-09-17 21:48 | PN ---
BRIEF HOSPITAL COURSE: This is a 61-year-old gentleman with history of CAD, peripheral artery disease, congestive heart failure, ESRD, currently on hemodialysis, chronic hypoxic and hypercapnic respiratory failure, was admitted to the hospital initially with change in mental status. Patient was noted to require a significant amount of oxygen. The patient had a nonhealing diabetic foot ulcer being managed by Dr. Delgado. Today patient is seen in cross-coverage for Dr. Kamari Franks. The patient appears to be confused, does not answer any questions. Patient is currently maintained on 8 liters of high-flow supplemental oxygen. Underwent hemodialysis, about 1.5 liters of ultrafiltration was done today. A CODE STATUS was discussed today with the family by Dr. Kaur who has been following the patient along and patient is made a DO NOT RESUSCITATE at this time. Patient is noted to have significant edema with concern for right foot infection with a significant osteomyelitis. Discussion regarding a foot amputation versus a BKA is being considered at this time. Most of the history is obtained from chart review. OBJECTIVE DATA: VITALS: Temperature 97, heart rate 98, respiratory rate 18, blood pressure 139/73, saturating 95% on 8 liters supplemental oxygen. GENERAL APPEARANCE: The patient is confused. NECK: Supple. No JVD. LUNGS: Diminished breath sounds, scattered crackles at the bases. No rhonchi or wheezing. HEART: Irregularly irregular. A systolic murmur is appreciated. ABDOMEN: Soft, nontender, no organomegaly. Surgical scar is noted. EXTREMITIES: Bilateral 2+ pitting edema noted. There is a large ulceration on the right heel with significant necrosis and purulent foul-smelling material was apparently dressed. NEURO: The patient is lethargic, moves all 4 extremities spontaneously. LABORATORY DATA: Reviewed from the previous days. ASSESSMENT AND PLAN: 1. Acute kidney injury on chronic kidney disease, currently on hemodialysis. 2. Sepsis secondary to osteomyelitis of the right foot. 3. Acute on chronic hypoxic hypercapnic respiratory failure. 4. Peripheral arterial disease. 5. Hypertension. 6. Coronary artery disease. 7. Atrial fibrillation with rapid ventricular rhythm present on admission. 8. Funguria. 9. History of chronic obstructive pulmonary disease. 10. Thrush. PLAN: Continue ongoing care. CODE STATUS was changed DO NOT RESUSCITATE. Surgical intervention per Dr. Delgado. Current antibiotics are maintained by infectious disease at this time. Patient's prognosis is extremely poor. Has multiple issues at this time. Did discuss the case with patient's who is at bedside as well. Will repeat labs in a.m. including PT and INR.
[2016-09-18 05:47] LABS: Anisocytosis Slight; Basophils # (A) 0.1 k/uL (0-0.2); Basophils % (A) 1 %; CH 29.3; CHCM 29.2; Eosinophils # (A) 0.5 k/uL (0-0.7); Eosinophils % (A) 6 %; HCT 41.6 % (39.0-53.0); HDW 3.56; HGB 12.2 gm/dL (13.0-17.5); Hypochromasia Marked; Luc # (Auto) 0.38; Luc % (Auto) 5; Lymphocytes # (A) 1.1 k/uL (1.0-4.8); Lymphocytes % (A) 13 %; MCH 29.8 pg (25.0-35.0); MCHC 29.4 g/dL (31.0-37.0); MCV 101.2 fL (80.0-100.0); Macrocytosis Slight; Mean Platelet Volume 7.4; Monocytes # (A) 0.5 k/uL (0-1.0); Monocytes % (A) 6 %; Neutrophils % (A) 70 %; Poikilocytosis Slight; RBC 4.11 m/uL (4.30-5.90); RDW 16.8 % (11.5-15.5); WBC 8.6 k/uL (3.8-10.6); WBC (Perox) 8.95
[2016-09-18 05:51] LABS: INR 2.3 (<1.1); Prothrombin Time 21.9 sec (9.0-12.0)
[2016-09-18 05:56] LABS: Glucose,Whole Blood 111 mg/dL (75-99)
[2016-09-18 05:59] LABS: Calcium 9.2 mg/dL (8.4-10.2); Potassium 3.9 mmol/L (3.5-5.1); Total Bilirubin 1.1 mg/dL (0.2-1.3); Total Protein 7.1 g/dL (6.3-8.2)
[2016-09-18 06:57] LABS: Manual Review Performed
[2016-09-18] MEDS ORDERED: PHYTONADIONE ORAL 5 MG/5 ML ORAL.SYRG PO STA (07:59)
[2016-09-18] MEDS: SEVELAMER 800 MG TAB PO SCH ×3 (07:59→18:12)
[2016-09-18] MEDS: traMADol 50 MG TAB PO SCH ×3 (08:36→23:18)
--- NOTE | 2016-09-18 08:51 | P.PN ---
Progress Note - Text 61-year-old diabetic male, history of chronic renal failure on dialysis patient has large wound on the right heel Padilla grade 4 with multiple sinuses draining pus with exposed tendon on the plantar aspect discussed with the family and Dr. Rafita Kaur patient is septic and we will arrange for disarticulation of the foot and then most likely this will need below-knee or above-knee amputation family agrees we will proceed risk and complication discussed the INR is 2.3 we gave 10 mg of Coumadin by mouth and proceed with surgery
[2016-09-18] MEDS: FUROSEMIDE 10 MG/ML 4 ML VIAL IV SCH ×2 (10:07→20:39)
[2016-09-18] MEDS: ALLOPURINOL 100 MG TAB PO SCH ×2 (10:09→11:17)
[2016-09-18] MEDS: NIACIN TR 500 MG CAPSULE.ER PO SCH ×2 (10:09→11:18)
[2016-09-18] MEDS: ASPIRIN 81 MG CHEW PO SCH ×2 (10:10→11:17)
[2016-09-18] MEDS: METOPROLOL TARTRATE 50 MG TAB PO SCH ×3 (10:10→20:40)
[2016-09-18] MEDS: NYSTATIN 100,000 UNIT/ML SUSP 500,000 UNIT/5 ML CUP PO SCH ×5 (10:10→20:41)
[2016-09-18] MEDS: FENOFIBRATE 160 MG TAB PO SCH ×2 (10:10→11:17)
[2016-09-18] MEDS: NICOTINE 21MG/24HR PATCH TRANSDERM SCH (10:10)
[2016-09-18] MEDS: THIAMINE 100 MG TAB PO SCH ×3 (10:11→20:41)
[2016-09-18 10:27] LABS: ABG PCO2 58 mmHg (35-45); ABG PH 7.28 (7.35-7.45)
[2016-09-18 10:28] LABS: ABG Base Excess 0.3 mmol/L; ABG HCO3 26 mmol/L (21-25); ABG PO2 65 mmHg (83-108); ABG TCO2 28 mmol/L (19-24)
[2016-09-18 11:50] LABS: Glucose,Whole Blood 93 mg/dL (75-99)
--- NOTE | 2016-09-18 12:09 | PN ---
Mr. Nunez is being followed for acute kidney injury requiring dialytic support, currently on hemodialysis. Concern for ATN. He was also started on some steroids yesterday due to some concern about allergic interstitial nephritis, though I highly doubt that that is the case at present. He seems to have more ATN-like picture. He continues to remain confused with fluctuating episodes. Clinically awake, alert x1 to 2. Documented urine output about 1 liter yesterday. Creatinine, however, has continued to remain high, for which he required dialysis yesterday. Today creatinine is 3.3, down slightly, expected from dialysis treatment. As per nursing staff, no other overnight events. PHYSICAL EXAMINATION: VITAL SIGNS: Pulse ox 93% on 4 L nasal cannula. Blood pressure 136/75. Afebrile. Heart rate 100 per minute. GENERAL APPEARANCE: Patient is morbidly obese. Lying comfortably. No acute distress. LUNGS: Coarse breath sounds bilaterally. CARDIOVASCULAR: Mild tachycardia. S1 and S2. ABDOMEN: Obese, soft, nontender. EXTREMITIES: Right foot dressing in place. Chronic venostasis changes. LABS: Hemoglobin 12.2, WBCs 8.6, eosinophils normal at 6%. Sodium 142, potassium 3.9, chloride 105, CO2 24. BUN 20, creatinine 3.3. Calcium 9.2. Albumin 3.3. Eosinophils initial admission negative. IMPRESSION: 1. Non-oliguric acute kidney injury secondary to acute tubular necrosis, currently dialysis-dependent. Last hemodialysis yesterday. 2. Mental status changes with a waxing and waning course. Initially there was concern for uremia; however, BUN 20 at present should not be contributing to his mentation. Recommend ruling out any CO2 narcosis, given patient's body habitus, high risk for CO2 retention. 3. Volume overload, much improved status post ultrafiltration 2 liters yesterday, September 17, 2016. 4. Atrial fibrillation, currently rate-controlled. RECOMMENDATIONS: 1. Monitor off the hemodialysis over weekend. 2. Okay to continue Lasix with strict I&O. 3. Discontinue prednisone; unlikely allergic interstitial nephritis. 4. Recommend checking arterial blood gases to rule out any CO2 retention. 5. Hold any sedative medications. 6. Monitor strict I&O. Thank you, Dr. Franks, for allowing me to participate in the care of this patient. Will follow the patient along with you.
[2016-09-18] MEDS: CYANOCOBALAMIN 500 MCG TAB PO SCH (13:14)
--- NOTE | 2016-09-18 15:26 | PN ---
Mr. Nunez has a history of diabetes, obesity, acute renal failure, atrial fibrillation, chronic venous hypertension, infected right foot, She grade 4 ulcer of right heel. Patient was scheduled to have disarticulation of the right foot. Patient was seen by Anesthesia, Dr. Mccullough, and patient is a very high risk for intubation. His INR is 2.3. Discussed with the family. We will wait for another 48 hours. Patient is DNR by the family. If he improves, then we will proceed with surgery. Family has not decided about going for surgery right away. They understand the risk of surgery. We will wait for another 24 hours to see how the patient does as far as his cardiac issues and respiratory issues are concerned. We will hold surgery today.
[2016-09-18 16:53] LABS: Glucose,Whole Blood 80 mg/dL (75-99)
[2016-09-18] MEDS: WARFARIN 1 MG TAB PO SCH (18:12)
[2016-09-18] MEDS: MICAFUNGIN 100 MG in SODIUM CHLORIDE 0.9% 100 ML IVPB SCH (18:12)
[2016-09-18] MEDS: CEFEPIME 0.5 GM in SODIUM CHLORIDE 0.9% 50 ML IVPB SCH (20:31)
[2016-09-18] MEDS: COLLAGENASE 250 UNIT/GM OINTMENT 30 GM TUBE TOPICAL SCH (20:38)
[2016-09-18] MEDS: FINASTERIDE 5 MG TAB PO SCH (20:39)
[2016-09-18 21:00] LABS: Glucose,Whole Blood 98 mg/dL (75-99)
--- NOTE | 2016-09-18 21:18 | PN ---
INTERVAL HISTORY: Mr. Nunez is a 61-year-old gentleman with a past medical history of coronary artery disease, peripheral artery disease, congestive heart failure, ESRD and currently on hemodialysis, chronic hypoxic and hypercapnic respiratory failure, admitted to the hospital initially for change in mental status. Patient was having difficulty in breathing and required significant amount of oxygen. He was also having nonhealing diabetic foot ulcer and being managed by Dr. Delgado. Today the patient is being seen in cross coverage for Dr. Franks ( ). Patient is sleeping in his bed, and he does not answer any questions. Patient is on 5 liters of high flow oxygen supplemental oxygen. He underwent hemodialysis with 1.5 liters of ultrafiltration that was done yesterday. Dr. Kaur also known the patient for long-term and he discussed the CODE STATUS with his and currently the patient is DNR. Patient is having right foot ulcers along with significant osteomyelitis. The plan was to send the patient for foot amputation versus BKA but due to the patient's respiratory status, the procedure has been put on hold for now. The patient does not give any history so most of it is obtained by review of the charts and as per the nursing staff report, Patient's vitals today: Temperature 98.9, heart rate 96, respiratory rate 18, blood pressure 146/83, saturating at 93% on 5 liters of nasal cannula. GENERAL: The patient is lying in bed, appears to be confused. NECK: Supple. No JVD. LUNGS: Diminished breath sounds in all lung manrique with a few crackles at the lower lung bases. No wheezes. Heart irregularly irregular. Systolic murmur positive. ABDOMEN: Soft and nontender. The patient has a surgical scar. Organomegaly cannot be appreciated due to huge body habitus. EXTREMITIES: Bilateral 2+ pitting edema noted. The right lower extremity has an ulcer that is currently in a clear bandage. I did not open the bandage today but there is significant erythema in his right lower extremity. NEUROLOGICAL: The patient is lethargic, but moves all his 4 extremities spontaneously. Patient's labs: White count of 8.6, hemoglobin is 12.2, platelets of 307, sodium 142, potassium 3.9, chloride 105, bicarb 24, BUN 20, creatinine 3.30. Calcium is 9.6, total bilirubin is 1.1. AST 20 ALT 27, albumin is 3.3. ASSESSMENT AND PLAN: 1. Sepsis secondary to osteomyelitis of the right foot. 2. Acute on chronic hypoxic and hypercapnic respiratory failure. 3. Acute on chronic kidney injury currently on hemodialysis. 4. Peripheral arterial disease. 5. Hypertension. 6. History of coronary artery disease. 7. Atrial fibrillation with rapid ventricular response present on admission and currently rate controlled. 8. History of chronic obstructive pulmonary disease. 9. Thrush 10. Morbid obesity. 11. History of nicotine dependence. 12. Morbid obesity with BMI of 43.7. PLAN: The plan is to continue the patient on the current medications regimen. Patient is being considered for right BKA versus toe amputation but due to his current respiratory status the procedure has been put on hold. As per the discussion with the family members he is currently DNR. Overall prognosis is very poor. We will continue with the current medical management. Further recommendations depending on the progress of the patient.
[2016-09-18] MEDS: DILTIAZEM 125 MG in SODIUM CHLORIDE 0.9% 100 ML IV SCH (22:57)
[2016-09-19 06:08] LABS: INR 1.6 (<1.1); Prothrombin Time 15.6 sec (9.0-12.0)
[2016-09-19 06:11] LABS: Glucose,Whole Blood 118 mg/dL (75-99)
[2016-09-19 06:19] LABS: Calcium 9.1 mg/dL (8.4-10.2); Potassium 3.9 mmol/L (3.5-5.1)
[2016-09-19] MEDS: SEVELAMER 800 MG TAB PO SCH ×3 (06:21→16:44)
[2016-09-19 06:36] LABS: Anisocytosis Slight; CH 29.4; CHCM 29.1; HCT 43.6 % (39.0-53.0); HGB 12.6 gm/dL (13.0-17.5); Hypochromasia Marked; MCH 29.3 pg (25.0-35.0); MCHC 28.8 g/dL (31.0-37.0); MCV 101.7 fL (80.0-100.0); Macrocytosis Moderate; Mean Platelet Volume 7.7; Poikilocytosis Slight; RBC 4.28 m/uL (4.30-5.90); WBC (Perox) 8.87
[2016-09-19 07:45] LABS: Add Differential Manual Differential
[2016-09-19 07:46] LABS: Nucleated Red Blood Cells 0 /100 WBC (0-0); Polychromasia Present; Total Cells Counted 100
[2016-09-19] MEDS: ALLOPURINOL 100 MG TAB PO SCH (09:54)
[2016-09-19] MEDS: FENOFIBRATE 160 MG TAB PO SCH (09:54)
[2016-09-19] MEDS: traMADol 50 MG TAB PO SCH ×3 (09:54→21:51)
[2016-09-19] MEDS: METOPROLOL TARTRATE 50 MG TAB PO SCH ×2 (09:54→21:00)
[2016-09-19] MEDS: NIACIN TR 500 MG CAPSULE.ER PO SCH (09:55)
[2016-09-19] MEDS: NYSTATIN 100,000 UNIT/ML SUSP 500,000 UNIT/5 ML CUP PO SCH ×5 (09:55→21:05)
[2016-09-19] MEDS: THIAMINE 100 MG TAB PO SCH ×2 (09:55→21:00)
[2016-09-19] MEDS: ASPIRIN 81 MG CHEW PO SCH (09:56)
[2016-09-19] MEDS: FUROSEMIDE 10 MG/ML 4 ML VIAL IV SCH ×2 (10:01→21:00)
[2016-09-19] MEDS: DAPTOmycin 500 MG in SODIUM CHLORIDE 0.9% 50 ML IV SCH (10:01)
[2016-09-19] MEDS: NICOTINE 21MG/24HR PATCH TRANSDERM SCH (10:01)
[2016-09-19 11:42] LABS: Glucose,Whole Blood 95 mg/dL (75-99)
[2016-09-19] MEDS: CYANOCOBALAMIN 500 MCG TAB PO SCH (12:06)
--- NOTE | 2016-09-19 13:48 | PN ---
Mr. Nunez is being followed for acute kidney injury requiring dialytic support, initially admitted for sepsis with concern of osteomyelitis of the right foot. The patient was scheduled to go for surgery yesterday, however, it was cancelled given his respiratory status. As per documentation family wants him to be DNR. His overall mentation remains unchanged. ABGs done yesterday did not show any CO2 narcosis. Labs this morning are pending. VITAL SIGNS: Afebrile, blood pressure 138/74, respiratory per minute, sats 93% on 3 liters, pulse 96 per minute. GENERAL APPEARANCE: The patient is sitting up in the bed. Opens eyes to verbal stimuli and not following any commands. LUNGS: Coarse breath sounds bilaterally. CARDIOVASCULAR: Regular rate and rhythm. S1, S2. ABDOMEN: Soft, nontender. EXTREMITIES: Bilateral poor pulses. Dressing in place on the right side. Chronic venostasis changes. LABS: Hemoglobin 12.6, WBC is 9.0, sodium 145, potassium 3.9, chloride 106, creatinine 3.3, stable compared to creatinine of September 18, also 3.3. IMPRESSION: 1. Nonoliguric acute kidney injury secondary to acute tubular necrosis. Last dialysis September 17, 2016 via right femoral South. It appears creatinine has been stable at 3.3 from yesterday September 18, 2016. Documented urine output about 1 liter in the last 24 hours. 2. Mental status changes persistent. No CO2 narcosis based on blood gases yesterday. The patient's blood urea nitrogen within an acceptable range unlikely to explain his mental status change. 3. Sepsis related to right foot osteomyelitis. Plan was for below-knee amputation versus toe amputation. Procedure canceled yesterday given the patient's respiratory status. Per documentation the patient DNR at present. 4. Atrial fibrillation currently rate controlled. 5. Volume overload, stable. Remains in negative balance. Currently maintained on Lasix. RECOMMENDATIONS: 1. Check BMP today followed by tomorrow. We will re-evaluate in the morning for continuation of dialysis if needed. Need to have a family discussion about long-term care given the patient's overall guarded prognosis. Recommend hospice evaluation. 2. Continue Lasix with strict I's and O's. 3. Monitor off the prednisone. There was some concern allergic interstitial nephritis; however, review of labs does not suggest competent of AIN though cannot be completely ruled out. GFR has been stable. 4. Hold any sedative medications. Thank you, Dr. Franks for allowing me to participate in the care of this patient. We will follow the patient along with you.
[2016-09-19 16:51] LABS: Glucose,Whole Blood 95 mg/dL (75-99)
--- NOTE | 2016-09-19 17:18 | PN ---
Mr. Nunez is a 61-year-old gentleman with history of chronic renal failure on hemodialysis, history of diabetes mellitus, history of Padilla grade IV ulcer right foot with sinuses draining pus and exposed tendon. We were planning to do the disarticulation of the foot yesterday. Patient was very short of breath when seen by Anesthesia. There was concern about intubation and his INR was 2.3. His surgery was held. Today on examination, patient is still not responding to verbal commands. He has nasal oxygen and the family has not decided about further intervention. If he improves, we will proceed with surgery. At this point, prognosis is guarded. Follow with you.
[2016-09-19] MEDS: WARFARIN 1 MG TAB PO SCH ×2 (17:43→17:45)
[2016-09-19] MEDS ORDERED: MORPHINE SULFATE 2 MG/ML SYRINGE IVP PRN (17:56)
[2016-09-19] MEDS: MICAFUNGIN 100 MG in SODIUM CHLORIDE 0.9% 100 ML IVPB SCH (19:18)
[2016-09-19 20:56] LABS: Glucose,Whole Blood 110 mg/dL (75-99)
[2016-09-19] MEDS: CEFEPIME 0.5 GM in SODIUM CHLORIDE 0.9% 50 ML IVPB SCH (21:00)
[2016-09-19] MEDS: FINASTERIDE 5 MG TAB PO SCH (21:00)
[2016-09-19] MEDS: COLLAGENASE 250 UNIT/GM OINTMENT 30 GM TUBE TOPICAL SCH (21:14)
[2016-09-19] MEDS: DILTIAZEM 125 MG in SODIUM CHLORIDE 0.9% 100 ML IV SCH (21:51)
[2016-09-20 05:48] LABS: Glucose,Whole Blood 106 mg/dL (75-99)
[2016-09-20] MEDS: SEVELAMER 800 MG TAB PO SCH ×3 (05:51→17:38)
[2016-09-20 06:54] LABS: Anisocytosis Slight; Basophils # (A) 0.1 k/uL (0-0.2); Basophils % (A) 1 %; CHCM 28.9; Eosinophils # (A) 0.6 k/uL (0-0.7); Eosinophils % (A) 6 %; HCT 43.9 % (39.0-53.0); HDW 3.42; HGB 12.8 gm/dL (13.0-17.5); Hypochromasia Marked; INR 1.5 (<1.1); Luc # (Auto) 0.37; Luc % (Auto) 4; Lymphocytes % (A) 10 %; MCH 29.6 pg (25.0-35.0); MCHC 29.2 g/dL (31.0-37.0); MCV 101.4 fL (80.0-100.0); Macrocytosis Moderate; Mean Platelet Volume 7.2; Monocytes # (A) 0.7 k/uL (0-1.0); Monocytes % (A) 7 %; Neutrophils # (A) 7.1 k/uL (1.3-7.7); Neutrophils % (A) 72 %; Poikilocytosis Slight; Prothrombin Time 14.2 sec (9.0-12.0); RBC 4.33 m/uL (4.30-5.90); RDW 16.7 % (11.5-15.5); WBC 9.7 k/uL (3.8-10.6); WBC (Perox) 9.77
[2016-09-20 07:02] LABS: Calcium 9.3 mg/dL (8.4-10.2); Potassium 3.7 mmol/L (3.5-5.1)
--- NOTE | 2016-09-20 07:50 | P.PN ---
Subjective Principal diagnosis: Continued altered mental status. This is a 61-year-old white male essentially admitted for altered mental status. He has significant nonoliguric renal failure with significant cellulitis and asked myelitis. I have reviewed weekend notes which show significant issue requiring possible disarticulation of the foot. Mental status is improved. He responds to name but does not follow commands. Objective - Vital Signs Vital signs: Vital Signs Temp 98.3 F 09/20/16 04:00 Pulse 107 H 09/20/16 04:00 Resp 17 09/20/16 04:00 BP 150/78 09/20/16 04:00 Pulse Ox 97 09/20/16 04:00 Intake & Output 09/19/16 09/20/16 09/20/16 18:59 06:59 18:59 Intake Total 260 199.5 Output Total 1150 1700 Balance -890 -1500.5 Weight 135.5 kg Intake: IV 260 85 0.9 120 Cefepime 0.5 gm In Sodium 50 Chloride 0.9% 50 ml @ 100 mls/hr IVPB DAILY@ 2000 [facility] Rx#:[id number] DAPTOmycin 500 mg In 100 Sodium Chloride 0.9% 50 ml @ 100 mls/hr IV Q48H [facility] Rx#:[id number] Diltiazem 125 mg In 40 35 Sodium Chloride 0.9% 100 ml @ 5 MG/HR 5 mls/hr IV .Q24H [facility] Rx#:[id number] Intake, IV Titration 114.5 Amount Diltiazem 125 mg In 114.5 Sodium Chloride 0.9% 100 ml @ 5 MG/HR 5 mls/hr IV .Q24H [facility] Rx#:[id number] Output: Urine 1150 1700 Other: Voiding Method Indwelling Catheter Indwelling Catheter # Voids 0 # Bowel Movements 1 - Constitutional General appearance: Present: obese - EENT Eyes: Absent: abnormal pupil - Respiratory Respiratory: bilateral: diminished - Cardiovascular Rhythm: irregularly irregular Heart sounds: normal: S1, S2 - Gastrointestinal General gastrointestinal: Present: soft. Absent: tenderness - Integumentary Integumentary: Present: cellulitis - Neurologic Neurologic: Absent: CNII-XII intact - Labs CBC & Chem 7: 09/20/16 05:37 09/20/16 05:37 Labs: Abnormal Lab Results - Last 24 Hours (Table) 09/19/16 09/20/16 09/20/16 Range/Units 20:53 05:37 05:37 Hgb 12.8 L (13.0-17.5) gm/dL MCV 101.4 H (80.0-100.0) fL MCHC 29.2 L (31.0-37.0) g/dL RDW 16.7 H (11.5-15.5) % PT 14.2 H (9.0-12.0) sec Sodium (137-145) mmol/L BUN (9-20) mg/dL Creatinine (0.66-1.25) mg/dL Glucose (74-99) mg/dL POC Glucose (mg/dL) 110 H (75-99) mg/dL 09/20/16 09/20/16 Range/Units 05:37 05:45 Hgb (13.0-17.5) gm/dL MCV (80.0-100.0) fL MCHC (31.0-37.0) g/dL RDW (11.5-15.5) % PT (9.0-12.0) sec Sodium 147 H (137-145) mmol/L BUN 27 H (9-20) mg/dL Creatinine 3.20 H (0.66-1.25) mg/dL Glucose 102 H (74-99) mg/dL POC Glucose (mg/dL) 106 H (75-99) mg/dL Microbiology - Last 24 Hours (Table) 09/16/16 11:42 Blood Culture - Preliminary Blood No Growth after 72 hours Assessment and Plan (1) Acute kidney injury Status: Acute (2) Cellulitis of right leg Status: Acute (3) Chronic a-fib Status: Chronic (4) Congestive heart failure Status: Acute (5) Generalized weakness Status: Acute (6) Pulmonary HTN Status: Acute (7) Sundowning Status: Acute (8) Acute on chronic kidney failure Status: Acute (9) Nutrition deficiency due to insufficient food Status: Acute Plan: Nutritional status is continued issue. Possible and rotation of the foot is being discussed. We'll follow CBC, CMP with PT/INR. Continue dialysis-we'll continue to follow nephrology. Question need for feeding tube. I will have a discussion with his as far as how far to proceed versus hospice. See orders otherwise. Time with Patient: Less than 30
[2016-09-20] MEDS: NICOTINE 21MG/24HR PATCH TRANSDERM SCH (08:54)
[2016-09-20] MEDS: FUROSEMIDE 10 MG/ML 4 ML VIAL IV SCH ×2 (08:54→20:19)
[2016-09-20] MEDS: ALLOPURINOL 100 MG TAB PO SCH (09:41)
[2016-09-20] MEDS: FENOFIBRATE 160 MG TAB PO SCH (09:41)
[2016-09-20] MEDS: traMADol 50 MG TAB PO SCH ×3 (09:41→22:18)
[2016-09-20] MEDS: NYSTATIN 100,000 UNIT/ML SUSP 500,000 UNIT/5 ML CUP PO SCH ×4 (09:42→20:18)
[2016-09-20] MEDS: NIACIN TR 500 MG CAPSULE.ER PO SCH (09:42)
[2016-09-20] MEDS: THIAMINE 100 MG TAB PO SCH ×2 (09:42→20:19)
[2016-09-20] MEDS: METOPROLOL TARTRATE 50 MG TAB PO SCH ×3 (09:43→20:19)
[2016-09-20] MEDS: ASPIRIN 81 MG CHEW PO SCH (09:43)
--- NOTE | 2016-09-20 10:05 | PN ---
DATE OF SERVICE: 09/19/2016 INTERVAL HISTORY: Mr. Nunez is a 69-year-old gentleman with a past medical history of coronary artery disease artery disease, peripheral artery disease, congestive heart failure, ESRD on hemodialysis, chronic hypoxic and hypercapnic respiratory failure admitted to the hospital for change in mental status. Patient was having difficulty in breathing and required a significant amount of oxygen. He was also having nonhealing diabetic foot ulcer and being managed by Dr. Delgado. The patient is being seen in cross coverage for Dr. Franks. The patient is sleeping in his bed, he does not answer any questions. He has been lethargic and responds only to painful stimuli. Patient is on 5 liters, high flow oxygen. Currently, the CODE STATUS of the patient is DNR. This was discussed in detail with the patient's by his PCP. The patient has right foot ulcers along with significant osteomyelitis and the plan was to send the patient for foot amputation, but due to concerns of his respiratory status, the procedure has been put on hold for now. Patient does not give any history. Most of it is obtained by view of the charts and as per nursing staff report. The patient's is at the bedside. On examination, patient's vital signs temperature 99.4, heart rate 94, respiratory rate 18, blood pressure 131/71, saturating at 98% on 3 liters of nasal cannula. GENERAL EXAMINATION: Patient is lying in bed, is very lethargic and responds only to painful stimuli. HEAD: Atraumatic, normocephalic. NECK: Supple. LUNGS: Diminished breath sounds in all lung manrique with a few crackles at the lower lung bases. No wheezes. CARDIAC: Heart irregularly irregular. Positive systolic murmur. ABDOMEN: Soft, nontender. The patient has surgical scars. Organomegaly not currently appreciated due to huge body habitus. EXTREMITIES: Bilateral pitting edema. The right lower extremity has an ulcer that is currently in a ( ) bandage. Significant erythema in his right lower extremity. NEUROLOGICAL: The patient is lethargic. Moves all 4 extremities to painful stimuli only. The patient's labs: White count of 9, hemoglobin is 12.6, platelets of 306, sodium 145, potassium 3.9, chloride 106, bicarb 24, BUN 24, creatinine 3.30. ASSESSMENT AND PLAN: 1. Sepsis secondary to osteomyelitis of the right foot. 2. Acute on chronic hypoxic and hypercapnic respiratory failure. 3. Acute on chronic kidney injury currently on hemodialysis. 4. Peripheral artery disease. 5. Hypertension. 6. History of coronary artery disease. 7. Atrial fibrillation with rapid ventricular response present on admission, currently rate controlled. 8. History of chronic obstructive pulmonary disease. 9. ( ). 10. Morbid obesity. 11. History of nicotine dependence. 12. Body mass index body mass index 43.7. PLAN: The plan is to continue the patient on the current medication regimen. He is on Cefepime and daptomycin and Micafungin. Patient has not been responding well, has been lethargic and has not been taking his oral medications. Nephrology and ID following the patient closely. I spoke in detail the poor prognosis of the patient with his but she really wants to talk with Dr. Franks who happens to be his primary care physician. For now the patient is DNR. We will continue with the current medication regimen and further recommendations to follow depending on the progress of the patient.
--- NOTE | 2016-09-20 11:03 | CDI ---
In responding to this query, please exercise your independent professional judgment. The [facility] Coding Staff and Clinical Documentation Specialists appreciate your assistance in clarifying documentation, maintaining compliance with coding guidelines, accurately documenting patients condition and capturing severity of illness. The fact that a question is asked does not imply that any particular answer is desired or expected. Communication forms are a method of clarifying documentation and are not made part of the Legal Health Record. Thank you in advance for your clarification. Last Revision, February 2015 Roman Rhoades [address] [place] [address] Documentation Clarification Form Date: 09/20/2016 10:51:00 AM From: Amanda Franklin CCS, CCDS Admit Date: 09/07/2016 8:36:00 PM Patient Name: Brandon Nunez Visit Number: [id number] Discharge Date: Dr. Kamari Franks: Per the 09/20 attending progress note: Nutrition deficiency due to insufficient food, acute. Nutritional status is continued issue. History/Risk Factors: Chronic Atrial Fibrillation, Diabetes mellitus, PVD, Diabetic bilateral foot ulcers. Clinical Indicators: Patient has right heel ulcer with evidence of osteomyelitis , non healing. Labs: Albumin 3.4*, Total protein 7.2 Current BMI: 41.7, documented morbid obesity. Fluid accumulation: documented pitting edema lower extremities and volume overload. Treatment: Nutritional assessment: Poor nutrition intake, consumed 0-25%. Obese with DM ulcer, stage II pressure ulcer on buttocks, DM ulcer left heel. Supplements: Glucerna daily-TID. In your professional opinion, can you please clarify if these findings signify one of the following conditions? Mild Protein Malnutrition Mild Protein-Calorie Malnutrition Moderate Protein Malnutrition Moderate Protein-Calorie Malnutrition Severe Protein Malnutrition Severe Protein-Calorie Malnutrition Other condition, please specify Unable to determine Please document in your progress notes and discharge summary in order to capture severity of illness and risk of mortality. Include clinical findings that support your diagnosis. FYI: Press F11 to launch patient chart. Place X here if this finding has no clinical significance, is not applicable or if you are not able to provide any additional documentation. Thank You. MENA
[2016-09-20 11:45] LABS: Glucose,Whole Blood 101 mg/dL (75-99)
--- NOTE | 2016-09-20 11:57 | PN ---
Patient was seen this morning. He did respond when his name was called. He answered simple questions as well. Patient is scheduled for hemodialysis today. He is also scheduled for surgery of his foot. On examination, blood pressure is 146/85, heart rate 116 per minute. He is afebrile. Examination of the heart S1 and S2. Examination of the lungs: Bilateral breath sounds are heard. Decreased breath sounds in bases. Abdomen is soft, obese. Examination of lower extremities shows chronic skin changes bilaterally. The right lower extremity currently wrapped. Edema has improved. MATERIAL HAULER examination shows patient's mentation improved to some degree compared to Tuesday. He did answer to simple questions. He is moving all 4 extremities. Labs show sodium 147, potassium 3.7, BUN 27, serum creatinine 3.2. Hemoglobin 12.8 g/dL. ASSESSMENT: 1. Acute kidney injury, currently hemodialysis dependent. The patient continues to have good urine output. His creatinine has been about 3.2 to 3.3 mg/dL. He is scheduled for hemodialysis today. We will proceed with dialysis as there is some improvement in mentation. 2. Right lower extremity cellulitis and diabetic foot infection scheduled for possible disarticulation of the foot. 3. Mild hypernatremia, expect improvement with dialysis 4. Volume overload, currently improved. 5. Encephalopathy currently slightly better after the weekend. PLAN: Hemodialysis today. Resume prednisone for 3 to 4 days. The etiology for the acute kidney injury is not clear. It is not clear-cut acute interstitial nephritis. However, since there has been slight improvement, I will continue with the prednisone for about 3 to 4 days at least. If the wishes to proceed with FULL CODE status we will likely need to do a kidney biopsy as well. MENA
[2016-09-20] MEDS: predniSONE 20 MG TAB PO SCH (12:46)
[2016-09-20] MEDS ORDERED: LIDOCAINE (PF) 10 MG/ML 2 ML VIAL ONE ×2 (13:06→17:02)
[2016-09-20] MEDS: CYANOCOBALAMIN 500 MCG TAB PO SCH (15:13)
[2016-09-20 16:31] LABS: Glucose,Whole Blood 127 mg/dL (75-99)
[2016-09-20] MEDS: WARFARIN 1 MG TAB PO SCH (17:38)
--- NOTE | 2016-09-20 20:08 | P.PN ---
Subjective Principal diagnosis: Right diabetic foot ulcer 61-year-old male who has multiple medical troubles that include diabetes noticed type II poorly controlled, coronary artery disease, congestive heart failure, COPD with CO2 retention and respiratory failure. In the recent past as had difficulties with a nonhealing diabetic foot ulcer that has been followed by the vascular surgeon. Despite local care and have been worsening. He was hospitalized last month with sepsis. He also had atrial fibrillation with RVR and respiratory failure that required many days of BiPAP therapy. Eventually had some improvement and was sent to rehab facility. Apparently within several days he had worsening of his status increasing edema and developed acute renal failure. He is doing poorly at this point in time. His mental status is very poor, similar to when he was having respiratory failure. He's been seen by neurology in the past and thought to be metabolic in nature. He's had a significant right diabetic foot ulceration that evaluation revealed evidence of osteomyelitis. Has been seen by Dr. Delgado, an attempt was for a surgical incision and drainage of the site. However he was so ill anesthesia would not give him anesthesia. Consequently had a incision and drainage the bedside performed today. With hemodialysis and antibiotic therapy he is now had improvement in his mentation he knows his 's name is Genny. He responds to his name Eduardo which is quite improved from the last several days. Objective - Vital Signs Vital signs: Vital Signs Temp 99.2 F 09/20/16 15:35 Pulse 109 H 09/20/16 15:35 Resp 18 09/20/16 15:35 BP 157/89 09/20/16 15:35 Pulse Ox 91 L 09/20/16 15:35 Intake & Output 09/20/16 09/20/16 09/21/16 06:59 18:59 06:59 Intake Total 199.5 100 Output Total 1700 2400 Balance -1500.5 -2300 Weight 135.5 kg 135.5 kg Intake: IV 85 Cefepime 0.5 gm In Sodium 50 Chloride 0.9% 50 ml @ 100 mls/hr IVPB DAILY@ 2000 [facility] Rx#:[id number] Diltiazem 125 mg In 35 Sodium Chloride 0.9% 100 ml @ 5 MG/HR 5 mls/hr IV .Q24H [facility] Rx#:[id number] Intake, IV Titration 114.5 Amount Diltiazem 125 mg In 114.5 Sodium Chloride 0.9% 100 ml @ 5 MG/HR 5 mls/hr IV .Q24H [facility] Rx#:[id number] Oral 100 Output: Urine 1700 1300 Stool 1100 Other: Voiding Method Indwelling Catheter Indwelling Catheter # Voids 0 # Bowel Movements 1 - Exam 61 year-old male who suffers from obesity. He seems comfortable but does not interact well with the observer. Despite stimulation he does not talk and his only very brief eye opening. At one time during the exam he appears to be dreaming and is laughing out loud a bit HEENT: Anicteric conjunctiva are pink and moist nasal mucosa grossly intact without significant lesions, there is no thrush. Dentition is warm for age. Neck: The neck is supple without significant lymphadenopathy or thyromegaly. Lungs: Symmetrical air entry is noted with evidence of expiratory wheezes that are scattered. No julian bronchial sounds were noted. No egophony or dullness. Heart: Irregular with an audible S1 and S2, no S3 soft S4, no new murmur click or rub. Abdomen: Obese, Positive bowel sounds soft and nontender without palpable masses or organomegaly. There was no guarding or rebound. Evidence of the prior abdominal surgeries noted. At the most superior aspect of the surgical incision is evidence of some hyper-granulation tissue. At the base of the hyperventilation tissue is exposed mesh. Extremities: There is bilateral lower extremity edema. There some erythema to both lower extremities. Much more prominent on the right lower extremity from the knee distally. There is evidence of the significant ulceration and there is grossly purulent material. Incision and drainage at the bedside per the surgeon today. Neuro: The patient is much as encephalopathic. Knows his name is Eduardo. His is Genny. Not conversational but awake - Labs CBC & Chem 7: 09/20/16 05:37 09/20/16 05:37 Labs: Abnormal Lab Results - Last 24 Hours (Table) 09/19/16 09/20/16 09/20/16 Range/Units 20:53 05:37 05:37 Hgb 12.8 L (13.0-17.5) gm/dL MCV 101.4 H (80.0-100.0) fL MCHC 29.2 L (31.0-37.0) g/dL RDW 16.7 H (11.5-15.5) % PT 14.2 H (9.0-12.0) sec Sodium (137-145) mmol/L BUN (9-20) mg/dL Creatinine (0.66-1.25) mg/dL Glucose (74-99) mg/dL POC Glucose (mg/dL) 110 H (75-99) mg/dL 09/20/16 09/20/16 09/20/16 Range/Units 05:37 05:45 11:41 Hgb (13.0-17.5) gm/dL MCV (80.0-100.0) fL MCHC (31.0-37.0) g/dL RDW (11.5-15.5) % PT (9.0-12.0) sec Sodium 147 H (137-145) mmol/L BUN 27 H (9-20) mg/dL Creatinine 3.20 H (0.66-1.25) mg/dL Glucose 102 H (74-99) mg/dL POC Glucose (mg/dL) 106 H 101 H (75-99) mg/dL 09/20/16 Range/Units 16:27 Hgb (13.0-17.5) gm/dL MCV (80.0-100.0) fL MCHC (31.0-37.0) g/dL RDW (11.5-15.5) % PT (9.0-12.0) sec Sodium (137-145) mmol/L BUN (9-20) mg/dL Creatinine (0.66-1.25) mg/dL Glucose (74-99) mg/dL POC Glucose (mg/dL) 127 H (75-99) mg/dL Microbiology - Last 24 Hours (Table) 09/16/16 11:42 Blood Culture - Preliminary Blood No Growth after 96 hours Laboratory Results WBC 9.7 k/uL (3.8-10.6) 09/20/16 05:37 RBC 4.33 m/uL (4.30-5.90) 09/20/16 05:37 Hgb 12.8 gm/dL (13.0-17.5) L 09/20/16 05:37 Hct 43.9 % (39.0-53.0) 09/20/16 05:37 MCV 101.4 fL (80.0-100.0) H 09/20/16 05:37 MCH 29.6 pg (25.0-35.0) 09/20/16 05:37 MCHC 29.2 g/dL (31.0-37.0) L 09/20/16 05:37 RDW 16.7 % (11.5-15.5) H 09/20/16 05:37 Plt Count 346 k/uL (150-450) 09/20/16 05:37 Neutrophils % 72 % 09/20/16 05:37 Neutrophils % (Manual) 74.0 % 09/19/16 05:27 Lymphocytes % 10 % 09/20/16 05:37 Lymphocytes % (Manual) 12.0 % 09/19/16 05:27 Monocytes % 7 % 09/20/16 05:37 Monocytes % (Manual) 9.0 % 09/19/16 05:27 Eosinophils % 6 % 09/20/16 05:37 Eosinophils % (Manual) 5.0 % 09/19/16 05:27 Basophils % 1 % 09/20/16 05:37 Neutrophils # 7.1 k/uL (1.3-7.7) 09/20/16 05:37 Neutrophils # (Manual) 6.7 k/uL (1.3-7.7) 09/19/16 05:27 Lymphocytes # 1.0 k/uL (1.0-4.8) 09/20/16 05:37 Lymphocytes # (Manual) 1.1 k/uL (1.0-4.8) 09/19/16 05:27 Monocytes # 0.7 k/uL (0-1.0) 09/20/16 05:37 Monocytes # (Manual) 0.8 k/uL (0-1.0) 09/19/16 05:27 Eosinophils # 0.6 k/uL (0-0.7) 09/20/16 05:37 Eosinophils # (Manual) 0.5 k/uL (0-0.7) 09/19/16 05:27 Basophils # 0.1 k/uL (0-0.2) 09/20/16 05:37 Nucleated RBCs 0 /100 WBC (0-0) 09/19/16 05:27 Manual Slide Review Performed 09/18/16 05:27 Polychromasia Present 09/19/16 05:27 Hypochromasia Marked 09/20/16 05:37 Poikilocytosis Slight 09/20/16 05:37 Anisocytosis Slight 09/20/16 05:37 Macrocytosis Moderate 09/20/16 05:37 PT 14.2 sec (9.0-12.0) H 09/20/16 05:37 INR 1.5 (<1.1) 09/20/16 05:37 APTT 56.9 sec (22.0-30.0) H 09/07/16 17:56 Sample Site rrad 09/18/16 10:22 ABG pH 7.28 (7.35-7.45) L 09/18/16 10:22 ABG pCO2 58 mmHg (35-45) H 09/18/16 10:22 ABG pO2 65 mmHg (83-108) L 09/18/16 10:22 ABG HCO3 26 mmol/L (21-25) H 09/18/16 10:22 ABG Total CO2 28 mmol/L (19-24) H 09/18/16 10:22 ABG O2 Saturation 89.0 % (94-97) L 09/18/16 10:22 ABG Base Excess 0.3 mmol/L 09/18/16 10:22 FiO2 36 % 09/18/16 10:22 Sodium 147 mmol/L (137-145) H 09/20/16 05:37 Potassium 3.7 mmol/L (3.5-5.1) 09/20/16 05:37 Chloride 106 mmol/L (98-107) 09/20/16 05:37 Carbon Dioxide 24 mmol/L (22-30) 09/20/16 05:37 Anion Gap 17 mmol/L 09/20/16 05:37 BUN 27 mg/dL (9-20) H 09/20/16 05:37 Creatinine 3.20 mg/dL (0.66-1.25) H 09/20/16 05:37 Est GFR (MDRD) Af Amer 24 (>60 ml/min/1.73 sqM) 09/20/16 05:37 Est GFR (MDRD) Non-Af 20 (>60 ml/min/1.73 sqM) 09/20/16 05:37 Glucose 102 mg/dL (74-99) H 09/20/16 05:37 POC Glucose (mg/dL) 127 mg/dL (75-99) H 09/20/16 16:27 POC Glu Box Spinner Tejal Donaldson 09/20/16 16:27 Calcium 9.3 mg/dL (8.4-10.2) 09/20/16 05:37 Phosphorus 9.2 mg/dL (2.5-4.5) H* 09/08/16 05:46 Magnesium 1.9 mg/dL (1.6-2.3) 09/08/16 05:46 Total Bilirubin 1.1 mg/dL (0.2-1.3) 09/18/16 05:27 AST 20 U/L (17-59) 09/18/16 05:27 ALT 27 U/L (21-72) 09/18/16 05:27 Alkaline Phosphatase 87 U/L (38-126) 09/18/16 05:27 Ammonia 35 umol/L (<30) H 09/07/16 17:56 Total Creatine Kinase 23 U/L (55-170) L 09/08/16 05:46 CK-MB (CK-2) 2.3 ng/mL (0.0-2.4) 09/08/16 05:46 CK-MB (CK-2) Rel Index 10.0 09/08/16 05:46 Troponin I 0.022 ng/mL (0.000-0.034) 09/08/16 05:46 Total Protein 7.1 g/dL (6.3-8.2) 09/18/16 05:27 Albumin 3.3 g/dL (3.5-5.0) L 09/18/16 05:27 Urine Color Yellow 09/07/16 20:45 Urine Appearance Cloudy (Clear) 09/07/16 20:45 Urine pH 6.0 (5.0-8.0) 09/07/16 20:45 Ur Specific [place] 1.015 (1.001-1.035) 09/07/16 20:45 Urine Protein 3+ (Negative) H 09/07/16 20:45 Urine Glucose (UA) Negative (Negative) 09/07/16 20:45 Urine Ketones Negative (Negative) 09/07/16 20:45 Urine Blood Moderate (Negative) H 09/07/16 20:45 Urine Nitrite Negative (Negative) 09/07/16 20:45 Urine Bilirubin Negative (Negative) 09/07/16 20:45 Urine Urobilinogen <2.0 mg/dL (<2.0) 09/07/16 20:45 Ur Leukocyte Esterase Large (Negative) H 09/07/16 20:45 Urine RBC 63 /hpf (0-5) H 09/07/16 20:45 Urine WBC 90 /hpf (0-5) H 09/07/16 20:45 Urine WBC Clumps Many /hpf (None) H 09/07/16 20:45 Hyaline Casts 3 /lpf (0-2) H 09/07/16 20:45 Urine Mucus Rare /hpf (None) H 09/07/16 20:45 Urine Eosinophils 0 % 09/09/16 00:45 LYNSEY Screen NEGATIVE (NEGATIVE) 09/10/16 06:38 c-ANCA <1:20 Titer (<1:20) 09/10/16 06:38 p-ANCA <1:20 Titer (<1:20) 09/10/16 06:38 Double Strand DNA Ab NEGATIVE (NEGATIVE) 09/10/16 06:38 Anti-DNA Ab Interp <1.0 IU/mL 09/10/16 06:38 Complement C3 132 mg/dL (88-165) 09/10/16 06:38 Complement C4 38 mg/dL (14-44) 09/10/16 06:38 Hep Bs Antigen Negative 09/10/16 06:38 Hep Bs Antibody Negative (Negative) 09/09/16 06:18 Hep B Core Total Ab Non-Reactive (Non-Reactive) 09/08/16 05:46 Hep C IgG Ab Negative (Negative) 09/10/16 06:38 Microbiology 09/16/16 11:42 Blood Blood Culture - Preliminary No Growth after 96 hours 09/07/16 17:56 Blood Blood Culture - Final No Growth after 144 hours 09/08/16 16:45 Urine,Catheterized Urine Culture - Final Radhika albicans Assessment and Plan (1) Acute on chronic kidney failure Status: Acute (2) Diabetic ulcer of foot associated with diabetes mellitus due to underlying condition, with necrosis of bone Narrative/Plan: 61-year-old male who has many medical troubles includes diabetes mellitus type 2 uncontrolled with multiple complications including osteitis to heal. With his chronic renal insufficiency that has become acute renal failure requiring hemodialysis as causes status to worsen even further. The heel ulceration has become more infected with more tissue necrosis. Vascular surgery has evaluated. Plans today for debridement concern that there will be more extensive infection and may need extensive debridement and possible amputation. However anesthesia would not give him significant amounts of anesthesia and only a bedside procedure may be performed. Antibiotic therapy will be utilized based on the prior cultures and cefepime, daptomycin, and micafungin will be utilized at the moment. Is noted during his last stay his prognosis is very poor. Patient is appropriate for DO NOT RESUSCITATE status family continues to struggle with proceeding. Fortunately his respiratory status is slightly better possibly due to the hemodialysis and improvement of his acid base status His mental status is poor but improving. Appears to be from improving infection and is metabolic status with dialysis. remains hopeful but will consider hospice in the future Status: Acute (3) Smoking Status: Acute (4) Morbid obesity Status: Acute
[2016-09-20] MEDS: MICAFUNGIN 100 MG in SODIUM CHLORIDE 0.9% 100 ML IVPB SCH (20:17)
[2016-09-20 20:19] LABS: Glucose,Whole Blood 196 mg/dL (75-99)
[2016-09-20] MEDS: FINASTERIDE 5 MG TAB PO SCH (20:19)
[2016-09-20] MEDS: COLLAGENASE 250 UNIT/GM OINTMENT 30 GM TUBE TOPICAL SCH (20:20)
[2016-09-20] MEDS: DILTIAZEM 125 MG in SODIUM CHLORIDE 0.9% 100 ML IV SCH (21:38)
[2016-09-20] MEDS: CEFEPIME 0.5 GM in SODIUM CHLORIDE 0.9% 50 ML IVPB SCH (21:38)
[2016-09-21] MEDS: SEVELAMER 800 MG TAB PO SCH ×3 (05:54→17:07)
[2016-09-21 05:58] LABS: Glucose,Whole Blood 123 mg/dL (75-99)
[2016-09-21 06:48] LABS: Anisocytosis Slight; CH 29.6; CHCM 29.4; HCT 41.8 % (39.0-53.0); HGB 12.3 gm/dL (13.0-17.5); Hypochromasia Marked; MCH 29.7 pg (25.0-35.0); MCHC 29.3 g/dL (31.0-37.0); MCV 101.3 fL (80.0-100.0); Macrocytosis Moderate; Mean Platelet Volume 7.6; Poikilocytosis Slight; RBC 4.13 m/uL (4.30-5.90); RDW 16.9 % (11.5-15.5); WBC 10.1 k/uL (3.8-10.6)
[2016-09-21 07:00] LABS: Calcium 9.1 mg/dL (8.4-10.2); Potassium 3.5 mmol/L (3.5-5.1); Total Bilirubin 1.3 mg/dL (0.2-1.3); Total Protein 7.3 g/dL (6.3-8.2)
--- NOTE | 2016-09-21 08:13 | P.PN ---
Subjective Principal diagnosis: Continued altered mental status. This is a 61-year-old white male essentially admitted for altered mental status. He has significant nonoliguric renal failure with significant cellulitis and asked myelitis. I have reviewed weekend notes which show significant issue requiring possible disarticulation of the foot. Mental status is improved. He responds to name but does not follow commands. Objective - Vital Signs Vital signs: Vital Signs Temp 98.5 F 09/20/16 20:00 Pulse 91 09/21/16 04:00 Resp 16 09/21/16 04:00 BP 132/87 09/21/16 04:00 Pulse Ox 94 L 09/21/16 04:00 Intake & Output 09/20/16 09/21/16 09/21/16 18:59 06:59 18:59 Intake Total 100 268.917 Output Total 2400 900 Balance -2300 -631.083 Weight 135.5 kg 128 kg Intake: IV 150 Cefepime 0.5 gm In Sodium 50 Chloride 0.9% 50 ml @ 100 mls/hr IVPB DAILY@ 2000 [facility] Rx#:[id number] Micafungin 100 mg In 100 Sodium Chloride 0.9% 100 ml @ 100 mls/hr IVPB DAILY@1900 [facility] Rx#: [id number] Intake, IV Titration 118.917 Amount Diltiazem 125 mg In 118.917 Sodium Chloride 0.9% 100 ml @ 5 MG/HR 5 mls/hr IV .Q24H [facility] Rx#:[id number] Oral 100 Output: Urine 1300 900 Stool 1100 Other: Voiding Method Indwelling Catheter Indwelling Catheter # Bowel Movements 1 1 - Constitutional General appearance: Present: obese - EENT Eyes: Absent: abnormal pupil - Respiratory Respiratory: bilateral: CTA - Cardiovascular Rhythm: irregularly irregular Heart sounds: normal: S1, S2 - Gastrointestinal General gastrointestinal: Present: soft. Absent: tenderness - Neurologic Neurologic Comment(s): Responding to verbal cues but not following commands - Psychiatric Psychiatric: Absent: appropriate affect, intact judgment & insight - Labs CBC & Chem 7: 09/21/16 06:19 09/21/16 06:14 Labs: Abnormal Lab Results - Last 24 Hours (Table) 09/20/16 09/20/16 09/20/16 Range/Units 11:41 16:27 20:18 RBC (4.30-5.90) m/uL Hgb (13.0-17.5) gm/dL MCV (80.0-100.0) fL MCHC (31.0-37.0) g/dL RDW (11.5-15.5) % Sodium (137-145) mmol/L BUN (9-20) mg/dL Creatinine (0.66-1.25) mg/dL Glucose (74-99) mg/dL POC Glucose (mg/dL) 101 H 127 H 196 H (75-99) mg/dL ALT (21-72) U/L Albumin (3.5-5.0) g/dL 09/21/16 09/21/16 09/21/16 Range/Units 05:57 06:14 06:19 RBC 4.13 L (4.30-5.90) m/uL Hgb 12.3 L (13.0-17.5) gm/dL MCV 101.3 H (80.0-100.0) fL MCHC 29.3 L (31.0-37.0) g/dL RDW 16.9 H (11.5-15.5) % Sodium 147 H (137-145) mmol/L BUN 31 H (9-20) mg/dL Creatinine 2.74 H (0.66-1.25) mg/dL Glucose 136 H (74-99) mg/dL POC Glucose (mg/dL) 123 H (75-99) mg/dL ALT 15 L (21-72) U/L Albumin 3.3 L (3.5-5.0) g/dL Microbiology - Last 24 Hours (Table) 09/20/16 17:30 Gram Stain - Preliminary Heel - Right Wound Culture - Preliminary 09/16/16 11:42 Blood Culture - Preliminary Blood No Growth after 96 hours Assessment and Plan (1) Acute kidney injury Status: Acute (2) Cellulitis of right leg Status: Acute (3) Chronic a-fib Status: Chronic (4) Congestive heart failure Status: Acute (5) Generalized weakness Status: Acute (6) Pulmonary HTN Status: Acute (7) Sundowning Status: Acute (8) Acute on chronic kidney failure Status: Acute (9) Nutrition deficiency due to insufficient food Status: Acute (10) Malnutrition of moderate degree Status: Acute Plan: I had a long discussion with the , she wishes to proceed with possible medication if it will help the patient. We also discussed possibility of feeding tube, and she is agreeable to this at this time. Check CBC, CMP with PT/INR in a.m. Prognosis is guarded at this time. Time with Patient: Greater than 30
[2016-09-21] MEDS: NYSTATIN 100,000 UNIT/ML SUSP 500,000 UNIT/5 ML CUP PO SCH ×4 (09:00→21:01)
[2016-09-21] MEDS: traMADol 50 MG TAB PO SCH ×3 (09:05→23:28)
[2016-09-21] MEDS: ALLOPURINOL 100 MG TAB PO SCH (09:05)
[2016-09-21] MEDS: METOPROLOL TARTRATE 50 MG TAB PO SCH ×2 (09:05→21:01)
[2016-09-21] MEDS: ASPIRIN 81 MG CHEW PO SCH (09:06)
[2016-09-21] MEDS: THIAMINE 100 MG TAB PO SCH ×2 (09:07→21:01)
[2016-09-21] MEDS: FUROSEMIDE 10 MG/ML 4 ML VIAL IV SCH (09:07)
[2016-09-21] MEDS: predniSONE 20 MG TAB PO SCH (09:07)
[2016-09-21] MEDS: CYANOCOBALAMIN 500 MCG TAB PO SCH (09:07)
[2016-09-21] MEDS: NIACIN TR 500 MG CAPSULE.ER PO SCH (09:07)
[2016-09-21] MEDS: FENOFIBRATE 160 MG TAB PO SCH (09:07)
[2016-09-21] MEDS: DAPTOmycin 500 MG in SODIUM CHLORIDE 0.9% 50 ML IV SCH (09:19)
--- NOTE | 2016-09-21 10:06 | CDI ---
In responding to this query, please exercise your independent professional judgment. The [facility] Coding Staff and Clinical Documentation Specialists appreciate your assistance in clarifying documentation, maintaining compliance with coding guidelines, accurately documenting patients condition and capturing severity of illness. The fact that a question is asked does not imply that any particular answer is desired or expected. Communication forms are a method of clarifying documentation and are not made part of the Legal Health Record. Thank you in advance for your clarification. Last Revision, June [address] [address] Documentation Clarification Form Date: 09/16/2016 11:01:00 AM Resubmitted 09/21/2016 From: Amanda Franklin Admit Date: 09/07/2016 8:36:00 PM Patient Name: Brandon Nunez Visit Number: [id number] Discharge Date: Dr. Rafita Kaur Osteomyelitis has been documented in the attending & nephrology notes as well as in the recent Infectious Disease Consult on 09/15 as: Diabetic ulcer of foot ( right) associated with diabetes melittus due to underlying condition, with necrosis of bone, DM uncontrolled with multiple complications including osteomyelitis to heel. It is noted in H&P that the patient has been treated previously for osteomyelitis. Clinical Indicators: History of nonhealing diabetic foot ulcer, follows with vascular surgeon, worsening despite local care. Patient is obese with uncontrolled diabetes. Labs: WBC 11.6, Neut 8.8 Treatment: IV abx: Daptomycin, Rocephin and Cefepime. Infectious Disease consulted and also Vascular surgery for evaluation of possible debridement and/ or amputation. In your professional opinion, please specify the following: Acuity: Acute Chronic Subacute Unable to Determine Please document in your progress notes and discharge summary in order to capture severity of illness and risk of mortality. Include clinical findings that support your diagnosis. FYI: Press F11 to launch patient chart Place X here if this finding has no clinical significance, is not applicable or if you are not able to provide any additional documentation. Thank You. MENA
[2016-09-21 11:11] LABS: Glucose,Whole Blood 123 mg/dL (75-99)
[2016-09-21 16:59] LABS: Glucose,Whole Blood 174 mg/dL (75-99)
[2016-09-21] MEDS: WARFARIN 1 MG TAB PO SCH (18:09)
[2016-09-21] MEDS: MICAFUNGIN 100 MG in SODIUM CHLORIDE 0.9% 100 ML IVPB SCH (18:16)
--- NOTE | 2016-09-21 18:30 | PN ---
DATE OF SERVICE: 09/21/2016 Patient is seen for follow up for acute kidney injury. This morning he is sitting up in bed. He is able to carry on a conversation. Patient's mentation appears to have improved significantly. We could not dialyze him yesterday as his catheter was not working. He continues to have good urine output and his creatinine is actually down to 2.7 from 3.2 yesterday suggesting recovery of kidney function. He was initially being scheduled for placement of PermCath; however, I have held it now given the fact that his renal function is slightly improved and overall patient appears to have improved as well. On examination, blood pressure is 154/81, heart rate 77 per minute. He is afebrile. Examination of the heart: S1, S2. Examination of the lungs: Bilateral breath sounds are heard. Abdomen is soft, nontender. Examination of lower extremities shows bilateral extremities to be wrapped. Chronic skin changes are noted. His right foot is currently wrapped and there is draining wound. Labs show sodium 147, potassium 3.5, BUN 31, serum creatinine 2.74, hemoglobin 12.3 g/dL. ASSESSMENT: 1. Acute kidney injury, acute tubular necrosis currently slowly improving. I will hold off on dialysis. The femoral catheter will be removed and I will hold off on Ig PermCath placement for now. Serum creatinine is down without dialysis. Patient continues to have good urine output. 2. Mild hypernatremia, currently stable. Patient is encouraged to increase his free water intake. He may need D5W if the sodium is high again in the a.m. At the same time I will also decrease the Lasix and switch it to p.o. 3. Encephalopathy, seems to be improving. 4. Right foot cellulitis with diabetic foot infection, being considered for amputation. 5. Volume overload, currently improved. PLAN: Decrease IV Lasix. Hold off on dialysis. Continue to avoid nephrotoxic agents. Repeat labs in the a.m. and continue to maintain indwelling Harris catheter.
[2016-09-21] MEDS: ACETAMINOPHEN TAB 325 MG TAB PO PRN (18:41)
[2016-09-21 20:56] LABS: Glucose,Whole Blood 177 mg/dL (75-99)
[2016-09-21] MEDS: FINASTERIDE 5 MG TAB PO SCH (21:01)
[2016-09-21] MEDS: CEFEPIME 0.5 GM in SODIUM CHLORIDE 0.9% 50 ML IVPB SCH (21:01)
[2016-09-21] MEDS: COLLAGENASE 250 UNIT/GM OINTMENT 30 GM TUBE TOPICAL SCH (21:02)
[2016-09-22 06:12] LABS: Anisocytosis Slight; CH 29.4; CHCM 29.6; HCT 43.2 % (39.0-53.0); HDW 3.29; HGB 12.6 gm/dL (13.0-17.5); Hypochromasia Marked; MCH 29.3 pg (25.0-35.0); MCHC 29.3 g/dL (31.0-37.0); MCV 100.2 fL (80.0-100.0); Macrocytosis Slight; Mean Platelet Volume 7.5; RBC 4.31 m/uL (4.30-5.90); RDW 16.9 % (11.5-15.5); WBC 10.5 k/uL (3.8-10.6)
[2016-09-22 06:12] LABS: Glucose,Whole Blood 120 mg/dL (75-99)
[2016-09-22 06:33] LABS: Potassium 3.1 mmol/L (3.5-5.1); Total Bilirubin 1.1 mg/dL (0.2-1.3); Total Protein 7.1 g/dL (6.3-8.2)
[2016-09-22] MEDS: SEVELAMER 800 MG TAB PO SCH ×3 (06:34→17:14)
[2016-09-22] MEDS: traMADol 50 MG TAB PO SCH ×2 (08:40→16:58)
[2016-09-22] MEDS: FENOFIBRATE 160 MG TAB PO SCH (08:44)
[2016-09-22] MEDS: FUROSEMIDE 40 MG TAB PO SCH ×2 (08:44→17:13)
[2016-09-22] MEDS: NIACIN TR 500 MG CAPSULE.ER PO SCH (08:45)
[2016-09-22] MEDS: ASPIRIN 81 MG CHEW PO SCH (08:45)
[2016-09-22] MEDS: METOPROLOL TARTRATE 50 MG TAB PO SCH ×2 (08:45→20:50)
[2016-09-22] MEDS: DAPTOmycin 500 MG in SODIUM CHLORIDE 0.9% 50 ML IV SCH (08:45)
[2016-09-22] MEDS: NYSTATIN 100,000 UNIT/ML SUSP 500,000 UNIT/5 ML CUP PO SCH ×4 (08:45→20:51)
[2016-09-22] MEDS: THIAMINE 100 MG TAB PO SCH ×2 (08:46→20:51)
[2016-09-22] MEDS: predniSONE 20 MG TAB PO SCH (08:46)
[2016-09-22] MEDS: CYANOCOBALAMIN 500 MCG TAB PO SCH (08:46)
[2016-09-22] MEDS: ALLOPURINOL 100 MG TAB PO SCH (08:50)
[2016-09-22] MEDS: POTASSIUM CHLORIDE ER 20 MEQ TAB.ER PO SCH ×2 (10:12→13:01)
[2016-09-22] MEDS: DEXTROSE 5% IN WATER 1,000 ML IV SCH (10:12)
[2016-09-22 11:11] LABS: INR 1.3 (<1.1); Prothrombin Time 13.1 sec (9.0-12.0)
[2016-09-22 12:05] LABS: Glucose,Whole Blood 202 mg/dL (75-99)
[2016-09-22 16:45] LABS: Glucose,Whole Blood 199 mg/dL (75-99)
--- NOTE | 2016-09-22 16:59 | PN ---
Patient is seen for follow-up for acute kidney injury. His renal function has improved. The patient is currently off of dialysis. He continues to have good urine output and serum creatinine now down to 2.6 mg/dL. The femoral catheter has been removed. On examination, blood pressure is 144/77, heart rate 89 per minute. He is afebrile. Examination of the heart S1 and S2. Examination of the lungs: Bilateral breath sounds are heard. ABDOMEN: Soft, obese, nontender. Examination of the lower extremities shows chronic skin changes bilaterally. Both extremities are wrapped. Draining wounds on the right leg and foot. CENTRAL NERVOUS SYSTEM: Exam shows patient is moving all 4 extremities. He is able to carry on normal conversation. Mentation has improved significantly. Labs show sodium 152, potassium 3.1, chloride 105, BUN 39. 2.6. Hemoglobin 12.6 g/dL. ASSESSMENT: 1. Acute kidney injury, acute tubular necrosis, currently improved significantly. Currently off of dialysis. We will maintain patient off dialysis for now. 2. Encephalopathy also improved. 3. Hypernatremia. Will start patient on a small amount of D5W. He is also encouraged to increase his oral fluid intake. I did decrease the Lasix yesterday to oral tablets. 4. Hypophosphatemia maintained on Renvela. PLAN: Continue with the empiric prednisone for possible acute interstitial nephritis for now as there is improvement in renal function once the prednisone was started. I will replace the potassium and start D5W and repeat labs in the a.m.
[2016-09-22] MEDS: WARFARIN 1 MG TAB PO SCH (17:14)
--- NOTE | 2016-09-22 20:36 | OP ---
DATE OF SERVICE: SURGEON: DIAMOND CONDE MD [employer]SEMBLER: PREOPERATIVE DIAGNOSIS: Sepsis with necrotic wound right foot, plantar aspect. POSTOPERATIVE DIAGNOSIS: Sepsis with necrotic wound right foot, plantar aspect. OPERATION: Debridement of the wound and incision and drainage of the abscess right foot. ANESTHESIA: ESTIMATED BLOOD LOSS: SPECIMENS REMOVED: COMPLICATIONS: OPERATIVE FINDINGS: PROCEDURE: This patient has a right foot abscess with infected wound on right foot, plantar aspect. Patient was seen in the room. Right foot was prepped and draped in the usual sterile manner. 1% lidocaine was infiltrated on the plantar aspect of the foot. After that elliptical incision was made on the plantar aspect of the foot, deepened through the skin, fat and fascia. There was a lot of pus came out, we drained a took a culture. There were some necrotic tissue with sharp knives. We did the necrotic tissue debridement. Necrotic tissue was removed. No active bleeding was noted. Wound was copiously irrigated with saline and Santyl cream applied to the wound. Plan is continue with Santyl cream and change of dressing daily. The patient tolerated the procedure well. Post wound debridement size of the wound is 2 x 3 cm.
[2016-09-22] MEDS: MICAFUNGIN 100 MG in SODIUM CHLORIDE 0.9% 100 ML IVPB SCH (20:47)
[2016-09-22 20:49] LABS: Glucose,Whole Blood 199 mg/dL (75-99)
[2016-09-22] MEDS: FINASTERIDE 5 MG TAB PO SCH (20:50)
[2016-09-22] MEDS: COLLAGENASE 250 UNIT/GM OINTMENT 30 GM TUBE TOPICAL SCH (22:55)
[2016-09-22] MEDS: CEFEPIME 0.5 GM in SODIUM CHLORIDE 0.9% 50 ML IVPB SCH (22:55)
[2016-09-23] MEDS: traMADol 50 MG TAB PO SCH ×4 (00:17→23:23)
[2016-09-23] MEDS: DEXTROSE 5% IN WATER 1,000 ML IV SCH (06:42)
[2016-09-23 07:55] LABS: Glucose,Whole Blood 128 mg/dL (75-99)
[2016-09-23] MEDS: INSULIN LISPRO (humaLOG) 300 UNIT/3 ML VIAL SQ SCH ×4 (08:10→21:37)
--- NOTE | 2016-09-23 08:23 | P.PN ---
Subjective Principal diagnosis: Continued altered mental status. This a continue progress on a 61-year-old white male essentially admitted for altered mental status. He's had element of diabetic foot ulcer with necrosis of bone with ostial myelitis. He hasn't underlying history of fibrillation and mental status has been had significant confusion. He is slowly improving and is actually oriented to his name and place. He answered questions appropriately but still has poor by mouth intake. Question need for feeding tube. Objective - Vital Signs Vital signs: Vital Signs Temp 97.8 F 09/23/16 07:00 Pulse 64 09/23/16 07:00 Resp 12 09/23/16 07:00 BP 141/103 09/23/16 07:00 Pulse Ox 98 09/23/16 07:00 Intake & Output 09/22/16 09/23/16 09/23/16 18:59 06:59 18:59 Intake Total 240 Output Total 675 1300 Balance -435 -1300 Weight 125 kg 126.5 kg Intake: Oral 240 Output: Urine 675 1300 Other: Voiding Method Indwelling Catheter Indwelling Catheter # Bowel Movements 1 - Constitutional General appearance: Present: obese - EENT Eyes: Absent: abnormal pupil - Respiratory Respiratory: bilateral: CTA - Cardiovascular Rhythm: regular Heart sounds: normal: S1, S2 - Integumentary Integumentary: Absent: cellulitis - Labs CBC & Chem 7: 09/22/16 05:30 09/22/16 05:36 Labs: Abnormal Lab Results - Last 24 Hours (Table) 09/22/16 09/22/16 09/22/16 Range/Units 05:30 12:01 16:43 PT 13.1 H (9.0-12.0) sec POC Glucose (mg/dL) 202 H 199 H (75-99) mg/dL 09/22/16 09/23/16 Range/Units 20:47 07:25 PT (9.0-12.0) sec POC Glucose (mg/dL) 199 H 128 H (75-99) mg/dL Microbiology - Last 24 Hours (Table) 09/20/16 17:30 Gram Stain - Preliminary Heel - Right Wound Culture - Preliminary Methicillin resist S. aureus Gram Neg Bacilli Cryptococcus neoformans 09/16/16 11:42 Blood Culture - Final Blood No Growth after 144 hours Assessment and Plan (1) Acute kidney injury Status: Acute (2) Cellulitis of right leg Status: Acute (3) Chronic a-fib Status: Chronic (4) Congestive heart failure Status: Acute (5) Generalized weakness Status: Acute (6) Pulmonary HTN Status: Acute (7) Sundowning Status: Acute (8) Acute on chronic kidney failure Status: Acute (9) Nutrition deficiency due to insufficient food Status: Acute (10) Malnutrition of moderate degree Status: Acute Plan: Continue current regimen of treatment. Question need for feeding tube if he does not improve. Calorie count is pending. Check CBC and CMP in a.m. Appreciate input from multiple consultants. Time with Patient: Less than 30
[2016-09-23] MEDS: ALLOPURINOL 100 MG TAB PO SCH (08:33)
[2016-09-23] MEDS: SEVELAMER 800 MG TAB PO SCH ×3 (08:33→16:13)
[2016-09-23] MEDS: predniSONE 20 MG TAB PO SCH (08:33)
[2016-09-23] MEDS: FENOFIBRATE 160 MG TAB PO SCH (08:33)
[2016-09-23] MEDS: FUROSEMIDE 40 MG TAB PO SCH (08:33)
[2016-09-23] MEDS: THIAMINE 100 MG TAB PO SCH ×2 (08:33→21:04)
[2016-09-23] MEDS: NYSTATIN 100,000 UNIT/ML SUSP 500,000 UNIT/5 ML CUP PO SCH ×4 (08:33→21:04)
[2016-09-23] MEDS: METOPROLOL TARTRATE 50 MG TAB PO SCH ×2 (08:33→21:04)
[2016-09-23] MEDS: ASPIRIN 81 MG CHEW PO SCH (08:34)
[2016-09-23] MEDS: NIACIN TR 500 MG CAPSULE.ER PO SCH (08:34)
[2016-09-23] MEDS: DAPTOmycin 500 MG in SODIUM CHLORIDE 0.9% 50 ML IV SCH (08:36)
--- NOTE | 2016-09-23 10:28 | CDI ---
In responding to this query, please exercise your independent professional judgment. The [facility] Coding Staff and Clinical Documentation Specialists appreciate your assistance in clarifying documentation, maintaining compliance with coding guidelines, accurately documenting patients condition and capturing severity of illness. The fact that a question is asked does not imply that any particular answer is desired or expected. Communication forms are a method of clarifying documentation and are not made part of the Legal Health Record. Thank you in advance for your clarification. Last Revision, February 2015 Roman Rhoades [address] [place] [address] Documentation Clarification Form Date: 09/23/2016 10:11:00 AM From: Amanda Franklin CCS, CCDS Admit Date: 09/07/2016 8:36:00 PM Patient Name: Brandon Nunez Visit Number: [id number] Discharge Date: Dr. Konstantin Delgado: Per your progress notes/operative note, a debridement was performed on the right foot on 09/22. Per the OR note: .... elliptical incision was made on the plantar aspect of the foot, deepened through the skin, fat and fascia. There was a lot of pus came out, we drained a took a culture. There were some necrotic tissue with sharp knives. We did the necrotic tissue debridement. Necrotic tissue was removed. History/Risk Factors: DM, Atrial Fibrillation, CHF, Pulmonary Hypertension Clinical Indicators: Admitted with Sepsis with necrotic wound right foot, plantar aspect, requiring debridement. Treatment: IV fluids, IV antibiotics, IV Lasix, Insulin sq. HD cath placed this admission. Consult: Vascular Surgery, Nephrology, Cardiopulmonary, Infectious Disease, Dietary Five elements required for accurate and compliant documentation of a debridement : 1. Technique used (e.g., excisional, excised, cutting, etc.) 2. Instrument(s) used (e.g., scalpel, curette, etc.) 3. Nature of the tissue removed (e.g; necrotic, devitalized tissues, non-viable tissue, etc.) 4. Appearance, size of the wound (e.g; down to fresh bleeding tissue, 7cm x 10cm , etc.) 5. Depth of the debridement* (e.g., skin, subcutaneous tissue, fascia, muscle, bone, etc.) In order to capture the severity of condition and code the appropriate procedure could you please document the following: Excisional debridement (the removal of necrotic, devitalized tissue or slough by means of cutting away of tissue) Non-excisional debridement (the removal of necrotic, devitalized tissue or slough by means of flushing, brushing, or washing. (Irrigation) Other; with explanation for clinical findings Unable to determine (no explanation for clinical findings) Please document in your progress notes and discharge summary in order to capture severity of illness and risk of mortality. Include clinical findings that support your diagnosis. FYI: Press F11 to launch patient chart. Place X here if this finding has no clinical significance, is not applicable or if you are not able to provide any additional documentation. Thank You. MENA
[2016-09-23 10:42] LABS: Calcium 9.4 mg/dL (8.4-10.2); Potassium 3.5 mmol/L (3.5-5.1)
[2016-09-23 12:28] LABS: Glucose,Whole Blood 181 mg/dL (75-99)
[2016-09-23] MEDS: CYANOCOBALAMIN 500 MCG TAB PO SCH (13:06)
[2016-09-23] MEDS: ONDANSETRON 4 MG/2 ML VIAL IVP PRN (13:38)
[2016-09-23] MEDS ORDERED: MENTHOL-ZINC OXIDE OINT 113 GM TUBE TOPICAL PRN (15:04)
--- NOTE | 2016-09-23 16:09 | PN ---
Patient is seen for followup for acute kidney injury. His renal function continues to improve. He is currently off of dialysis, continues to have good urine output. His creatinine is now down to 2.25 mg/dL. He has an indwelling Harris catheter. Patient is maintained on D5W for hypernatremia. Sodium is down to 151 from 152 yesterday. Mentation also has improved significantly since admission. On examination, blood pressure is 148/88, heart rate 100 per minute. He is afebrile. This morning blood pressure was 141/103. Heart rate was 64 per minute. EXAMINATION OF THE HEART: S1 and S2. EXAMINATION OF THE LUNGS: Bilateral breath sounds are heard. ABDOMEN: Soft, obese, nontender. Examination of lower extremities shows chronic skin changes and wounds. Extremities are wrapped. There is a draining wound on his right foot. CLINICAL RN exam shows patient is moving all 4 extremities. Mentation has improved significantly. He is answering simple questions very appropriately. Labs show sodium 151, potassium 3.5, BUN 46, serum creatinine 2.25. ASSESSMENT: 1. Acute kidney injury, acute tubular necrosis, currently improving. Patient is maintained on prednisone, which I will continue for about a week or so. 2. Hypernatremia associated with free water deficit, maintained on D5W. 3. Hypervolemia, now improved. Lasix is switched to p.o. 4. Right diabetic foot infection, being followed by Vascular. Patient had debridement of the wound and I&D of the abscess on the right foot by Dr. Delgado yesterday. He is maintained on antibiotics, currently on daptomycin, micafungin and cefepime. His urine culture grew radhika and wound cultures grew MRSA and Gram-negative bacilli. 5. Radhika albicans in the urine, maintained on micafungin. PLAN: Continue with the prednisone. Continue D5W. I will decrease the Lasix to 40 mg p.o. daily from b.i.d.
[2016-09-23 17:26] LABS: Glucose,Whole Blood 214 mg/dL (75-99)
[2016-09-23 17:26] LABS: Glucose,Whole Blood 518 mg/dL (75-99)
[2016-09-23 17:26] LABS: Glucose,Whole Blood 200 mg/dL (75-99)
[2016-09-23] MEDS: WARFARIN 1 MG TAB PO SCH (17:50)
[2016-09-23] MEDS: MICAFUNGIN 100 MG in SODIUM CHLORIDE 0.9% 100 ML IVPB SCH (19:55)
[2016-09-23] MEDS: CEFEPIME 0.5 GM in SODIUM CHLORIDE 0.9% 50 ML IVPB SCH (21:01)
[2016-09-23] MEDS: COLLAGENASE 250 UNIT/GM OINTMENT 30 GM TUBE TOPICAL SCH (21:04)
[2016-09-23] MEDS: FINASTERIDE 5 MG TAB PO SCH (21:04)
[2016-09-23 21:23] LABS: Glucose,Whole Blood 344 mg/dL (75-99)
[2016-09-23 21:28] LABS: Glucose,Whole Blood 181 mg/dL (75-99)
[2016-09-24] MEDS: DEXTROSE 5% IN WATER 1,000 ML IV SCH ×2 (03:12→20:26)
[2016-09-24 07:29] LABS: Glucose,Whole Blood 128 mg/dL (75-99)
[2016-09-24] MEDS: SEVELAMER 800 MG TAB PO SCH ×3 (08:28→17:31)
[2016-09-24] MEDS: INSULIN LISPRO (humaLOG) 300 UNIT/3 ML VIAL SQ SCH ×4 (08:28→22:00)
[2016-09-24] MEDS: predniSONE 20 MG TAB PO SCH (08:29)
[2016-09-24] MEDS: ASPIRIN 81 MG CHEW PO SCH (08:29)
[2016-09-24] MEDS: ALLOPURINOL 100 MG TAB PO SCH (08:29)
[2016-09-24] MEDS: METOPROLOL TARTRATE 50 MG TAB PO SCH ×2 (08:29→20:25)
[2016-09-24] MEDS: FENOFIBRATE 160 MG TAB PO SCH (08:29)
[2016-09-24] MEDS: NIACIN TR 500 MG CAPSULE.ER PO SCH (08:29)
[2016-09-24] MEDS: DAPTOmycin 500 MG in SODIUM CHLORIDE 0.9% 50 ML IV SCH (08:29)
[2016-09-24] MEDS: CYANOCOBALAMIN 500 MCG TAB PO SCH (08:30)
[2016-09-24] MEDS: THIAMINE 100 MG TAB PO SCH ×2 (08:30→20:25)
--- NOTE | 2016-09-24 08:57 | P.PN ---
Subjective Principal diagnosis: Confusion This is a continue progress on a 61-year-old white male essentially meant for altered mental status. The patient has an underlying history of acute on chronic renal failure. Emergent dialysis was done. He also has an underlying history of sepsis and mental status changes related to diabetic foot ulcer with infection to the bone. Multiple consultants including nephrology, infectious disease with [facility] are on the case. He has actually been eating better with assistance. Three-day calorie count is pending. I do still question need for tube feeding if he does not improve. Otherwise, at this time [facility] has decided not to do amputation. Appreciate input. Objective - Vital Signs Vital signs: Vital Signs Temp 99.4 F 09/24/16 07:00 Pulse 119 H 09/24/16 07:00 Resp 18 09/24/16 07:00 BP 150/93 09/24/16 07:00 Pulse Ox 93 L 09/24/16 07:54 Intake & Output 09/23/16 09/24/16 09/24/16 18:59 06:59 18:59 Intake Total 100 Output Total 675 700 Balance -675 -600 Weight 126.5 kg Intake: Oral 100 Output: Urine 675 700 Other: Voiding Method Indwelling Catheter Indwelling Catheter # Bowel Movements 2 - Constitutional General appearance: Present: obese - EENT Eyes: Absent: abnormal pupil - Respiratory Respiratory: bilateral: diminished - Cardiovascular Rhythm: irregularly irregular Heart sounds: normal: S1, S2 - Gastrointestinal General gastrointestinal: Present: soft. Absent: tenderness - Psychiatric Psychiatric: Absent: A&O x's 3, appropriate affect, intact judgment & insight - Labs CBC & Chem 7: 09/22/16 05:30 09/23/16 09:36 Labs: Abnormal Lab Results - Last 24 Hours (Table) 09/23/16 09/23/16 09/23/16 Range/Units 09:36 12:26 17:05 Sodium 151 H (137-145) mmol/L Carbon Dioxide 34 H (22-30) mmol/L BUN 46 H (9-20) mg/dL Creatinine 2.25 H (0.66-1.25) mg/dL Glucose 227 H (74-99) mg/dL POC Glucose (mg/dL) 181 H 518 H (75-99) mg/dL 09/23/16 09/23/16 09/23/16 Range/Units 17:08 17:09 21:21 Sodium (137-145) mmol/L Carbon Dioxide (22-30) mmol/L BUN (9-20) mg/dL Creatinine (0.66-1.25) mg/dL Glucose (74-99) mg/dL POC Glucose (mg/dL) 214 H 200 H 344 H (75-99) mg/dL 09/23/16 09/24/16 Range/Units 21:26 07:28 Sodium (137-145) mmol/L Carbon Dioxide (22-30) mmol/L BUN (9-20) mg/dL Creatinine (0.66-1.25) mg/dL Glucose (74-99) mg/dL POC Glucose (mg/dL) 181 H 128 H (75-99) mg/dL Assessment and Plan (1) Acute kidney injury Status: Acute (2) Cellulitis of right leg Status: Acute (3) Chronic a-fib Status: Chronic (4) Congestive heart failure Status: Acute (5) Generalized weakness Status: Acute (6) Pulmonary HTN Status: Acute (7) Sundowning Status: Acute (8) Acute on chronic kidney failure Status: Acute (9) Nutrition deficiency due to insufficient food Status: Acute (10) Malnutrition of moderate degree Status: Acute Plan: Continue current course as he is actually improving his overall dietary intake. Again, I do question need for tube feeding if he does not improve. Prognosis is guarded secondary to his continued confusion. And his overall comorbidities. Check CBC and CMP in a.m. See orders otherwise Time with Patient: Greater than 30
[2016-09-24] MEDS ORDERED: FUROSEMIDE 40 MG TAB PO SCH (09:00)
[2016-09-24 10:36] LABS: INR 1.6 (<1.1); Prothrombin Time 15.8 sec (9.0-12.0)
[2016-09-24 12:19] LABS: Glucose,Whole Blood 170 mg/dL (75-99)
[2016-09-24 13:13] LABS: Calcium 8.8 mg/dL (8.4-10.2); Potassium 4.2 mmol/L (3.5-5.1)
--- NOTE | 2016-09-24 13:22 | PN ---
The patient is seen for followup for acute kidney injury. His renal function has been slowly improving over the last week or so. Over the last week, he is currently off of dialysis. His mentation has improved but still remains confused at times. Patient has been hypernatremic and is maintained on D5W. On examination, blood pressure was 150/93, heart rate 119 per minute. He is afebrile. EXAMINATION OF THE HEART: S1 and S2. EXAMINATION OF THE LUNGS: Bilateral breath sounds are heard. Decreased breath sounds at the bases. ABDOMEN: Soft, obese. Examination of lower extremities shows bilateral chronic skin changes with evidence of cellulitis right lower extremity and wound infection in the right foot. CODING FILE CLERK exam shows patient moving all 4 extremities. Labs are not available from today. ASSESSMENT: 1. Acute kidney injury, most likely acute tubular necrosis with improving renal function. There is a consideration for possible AIN in the form of acute interstitial nephritis for which patient is maintained on prednisone. He has an indwelling Harris catheter, which we can continue for now. 2. Encephalopathy, slowly improving. Patient is again confused at times possibly related to the hypernatremia. 3. Right diabetic foot infection, status post I&D yesterday, maintained on antibiotics. 4. Hypernatremia, maintained on D5W. I will repeat labs today and hold off on the Lasix. Plan is continue D5W, check labs today. Hold Lasix. Repeat labs in a.m.
[2016-09-24 17:19] LABS: Glucose,Whole Blood 268 mg/dL (75-99)
[2016-09-24] MEDS: WARFARIN 1 MG TAB PO SCH (17:33)
[2016-09-24] MEDS: MICAFUNGIN 100 MG in SODIUM CHLORIDE 0.9% 100 ML IVPB SCH (19:26)
[2016-09-24] MEDS: COLLAGENASE 250 UNIT/GM OINTMENT 30 GM TUBE TOPICAL SCH (20:25)
[2016-09-24] MEDS: FINASTERIDE 5 MG TAB PO SCH (20:25)
[2016-09-24] MEDS: CEFEPIME 0.5 GM in SODIUM CHLORIDE 0.9% 50 ML IVPB SCH (20:25)
[2016-09-24 21:06] LABS: Glucose,Whole Blood 280 mg/dL (75-99)
[2016-09-24] MEDS: QUEtiapine 25 MG TAB PO PRN (22:01)
[2016-09-25] MEDS: INSULIN LISPRO (humaLOG) 300 UNIT/3 ML VIAL SQ SCH ×4 (07:38→21:05)
[2016-09-25 07:40] LABS: Glucose,Whole Blood 114 mg/dL (75-99)
[2016-09-25 07:40] LABS: Anisocytosis Slight; CH 29.3; HCT 44.4 % (39.0-53.0); HDW 3.11; HGB 12.8 gm/dL (13.0-17.5); Hypochromasia Marked; MCH 29.3 pg (25.0-35.0); MCHC 28.9 g/dL (31.0-37.0); MCV 101.7 fL (80.0-100.0); Macrocytosis Moderate; Mean Platelet Volume 8.2; RBC 4.37 m/uL (4.30-5.90); RDW 16.5 % (11.5-15.5); WBC 12.2 k/uL (3.8-10.6)
[2016-09-25 08:11] LABS: Calcium 8.5 mg/dL (8.4-10.2); Potassium 4.1 mmol/L (3.5-5.1); Total Bilirubin 1.3 mg/dL (0.2-1.3); Total Protein 7.2 g/dL (6.3-8.2)
[2016-09-25] MEDS: ASPIRIN 81 MG CHEW PO SCH (09:15)
[2016-09-25] MEDS: FENOFIBRATE 160 MG TAB PO SCH (09:16)
[2016-09-25] MEDS: METOPROLOL TARTRATE 50 MG TAB PO SCH ×2 (09:16→21:08)
[2016-09-25] MEDS: predniSONE 20 MG TAB PO SCH (09:16)
[2016-09-25] MEDS: DAPTOmycin 500 MG in SODIUM CHLORIDE 0.9% 50 ML IV SCH (09:16)
[2016-09-25] MEDS: NIACIN TR 500 MG CAPSULE.ER PO SCH (09:16)
[2016-09-25] MEDS: SEVELAMER 800 MG TAB PO SCH ×3 (09:16→17:57)
[2016-09-25] MEDS: THIAMINE 100 MG TAB PO SCH ×2 (09:16→20:01)
[2016-09-25] MEDS: ALLOPURINOL 100 MG TAB PO SCH (09:16)
[2016-09-25] MEDS: DEXTROSE 5% IN WATER 1,000 ML IV SCH (09:24)
[2016-09-25 11:28] LABS: INR 1.7 (<1.1); Prothrombin Time 16.1 sec (9.0-12.0)
[2016-09-25 11:55] LABS: Glucose,Whole Blood 188 mg/dL (75-99)
[2016-09-25] MEDS: CYANOCOBALAMIN 500 MCG TAB PO SCH (12:42)
--- NOTE | 2016-09-25 16:29 | P.PN ---
Subjective Mr. Nunez is a 61-year-old gentleman who is seen in cross coverage for Dr. Franks Patient has a history of peripheral arterial disease congestive heart failure and acute kidney injury with a hemodialysis in the past Patient is currently on 3 L of supplemental oxygen at this time states that he does not have any complaints however patient's baseline mental status is that he is not able to really answer questions appropriately Today patient does not have any additional complaints overnight events are reported by the RN Objective - Vital Signs Vital signs: Vital Signs Temp 97.8 F 09/25/16 15:00 Pulse 117 H 09/25/16 15:00 Resp 20 09/25/16 15:00 BP 153/110 09/25/16 15:00 Pulse Ox 94 L 09/25/16 15:00 Intake & Output 09/24/16 09/25/16 09/25/16 18:59 06:59 18:59 Intake Total 100 240 Output Total 475 800 600 Balance -475 -700 -360 Weight 126.5 kg 123.5 kg Intake: Oral 100 240 Output: Urine 475 800 600 Other: Voiding Method Indwelling Catheter Indwelling Catheter Indwelling Catheter # Bowel Movements 0 1 1 - Exam Gen. appearance comfortable Neck is supple no JVD Heart irregularly irregular no murmurs appreciated Lungs no crackles appreciated a diminished breath sounds Abdomen soft nontender organomegaly and previous surgical scars are noted Lower extremities the bandage is noted over the right foot Neuro moves all 4 extremities - Labs CBC & Chem 7: 09/25/16 07:26 09/25/16 07:26 Labs: Abnormal Lab Results - Last 24 Hours (Table) 09/24/16 09/24/16 09/25/16 Range/Units 17:13 20:58 07:26 WBC 12.2 H (3.8-10.6) k/uL Hgb 12.8 L (13.0-17.5) gm/dL MCV 101.7 H (80.0-100.0) fL MCHC 28.9 L (31.0-37.0) g/dL RDW 16.5 H (11.5-15.5) % PT (9.0-12.0) sec Sodium (137-145) mmol/L Carbon Dioxide (22-30) mmol/L BUN (9-20) mg/dL Creatinine (0.66-1.25) mg/dL Glucose (74-99) mg/dL POC Glucose (mg/dL) 268 H 280 H (75-99) mg/dL 09/25/16 09/25/16 09/25/16 Range/Units 07:26 07:26 07:33 WBC (3.8-10.6) k/uL Hgb (13.0-17.5) gm/dL MCV (80.0-100.0) fL MCHC (31.0-37.0) g/dL RDW (11.5-15.5) % PT 16.1 H (9.0-12.0) sec Sodium 151 H (137-145) mmol/L Carbon Dioxide 35 H (22-30) mmol/L BUN 59 H (9-20) mg/dL Creatinine 2.16 H (0.66-1.25) mg/dL Glucose 126 H (74-99) mg/dL POC Glucose (mg/dL) 114 H (75-99) mg/dL 09/25/16 Range/Units 11:48 WBC (3.8-10.6) k/uL Hgb (13.0-17.5) gm/dL MCV (80.0-100.0) fL MCHC (31.0-37.0) g/dL RDW (11.5-15.5) % PT (9.0-12.0) sec Sodium (137-145) mmol/L Carbon Dioxide (22-30) mmol/L BUN (9-20) mg/dL Creatinine (0.66-1.25) mg/dL Glucose (74-99) mg/dL POC Glucose (mg/dL) 188 H (75-99) mg/dL Assessment and Plan Plan: #1 acute kidney injury with AIN and ATN currently on prednisone #2 metabolic encephalopathy #3 acute on chronic hypoxic respiratory failure #4 right diabetic foot infection status post debridement on antibiotic #5 hypernatremia due to poor oral intake #6 Diabetes mellitus type II #7 moderate protein calorie malnutrition #8 acute fibrillation chronic Plan Continue D5W Renal function is stable at this time Continue maintaining O2 levels greater than 90% Continue Coumadin 1 mg repeat PT/INR another labs tomorrow Patient is answering some questions however appears to be confused this is a very delirium from prolonged hospitalization.
[2016-09-25] MEDS ORDERED: METOPROLOL TARTRATE 50 MG TAB PO STA (17:22)
[2016-09-25 17:24] LABS: Glucose,Whole Blood 259 mg/dL (75-99)
[2016-09-25] MEDS: WARFARIN 1 MG TAB PO SCH (17:57)
[2016-09-25] MEDS: MICAFUNGIN 100 MG in SODIUM CHLORIDE 0.9% 100 ML IVPB SCH (19:43)
--- NOTE | 2016-09-25 19:48 | P.PN ---
Subjective Principal diagnosis: Right diabetic foot ulcer 61-year-old male who has multiple medical troubles that include diabetes noticed type II poorly controlled, coronary artery disease, congestive heart failure, COPD with CO2 retention and respiratory failure. In the recent past as had difficulties with a nonhealing diabetic foot ulcer that has been followed by the vascular surgeon. Despite local care and have been worsening. He was hospitalized last month with sepsis. He also had atrial fibrillation with RVR and respiratory failure that required many days of BiPAP therapy. Eventually had some improvement and was sent to rehab facility. Apparently within several days he had worsening of his status increasing edema and developed acute renal failure. He is doing poorly at this point in time. His mental status is very poor, similar to when he was having respiratory failure. He's been seen by neurology in the past and thought to be metabolic in nature. He's had a significant right diabetic foot ulceration that evaluation revealed evidence of osteomyelitis. Has been seen by Dr. Delgado, an attempt was for a surgical incision and drainage of the site. However he was so ill anesthesia would not give him anesthesia. Consequently had a incision and drainage the bedside was performed. Case discussed with vascular surgery. Hopes is several days of antibiotic therapy will allow him to improve such that potentially he become a surgical candidate. With hemodialysis and antibiotic therapy he is now had improvement in his mentation does respond to his name. His non-conversational though. Still has a disconcerting intermittent Lasix. Objective - Vital Signs Vital signs: Vital Signs Temp 97.8 F 09/25/16 15:00 Pulse 117 H 09/25/16 15:00 Resp 20 09/25/16 15:00 BP 153/110 09/25/16 15:00 Pulse Ox 94 L 09/25/16 15:00 Intake & Output 09/25/16 09/25/16 09/26/16 06:59 18:59 06:59 Intake Total 100 240 Output Total 800 600 Balance -700 -360 Weight 123.5 kg 123.5 kg Intake: Oral 100 240 Output: Urine 800 600 Other: Voiding Method Indwelling Catheter Self-Catheterization # Bowel Movements 1 1 - Exam 61 year-old male who suffers from obesity. He seems comfortable but does not interact well with the observer. Despite stimulation he does not talk and his only very brief eye opening. At one time during the exam he appears to be dreaming and is laughing out loud a bit HEENT: Anicteric conjunctiva are pink and moist nasal mucosa grossly intact without significant lesions, there is no thrush. Dentition is warm for age. Neck: The neck is supple without significant lymphadenopathy or thyromegaly. Lungs: Symmetrical air entry is noted with evidence of expiratory wheezes that are scattered. No julian bronchial sounds were noted. No egophony or dullness. Heart: Irregular with an audible S1 and S2, no S3 soft S4, no new murmur click or rub. Abdomen: Obese, Positive bowel sounds soft and nontender without palpable masses or organomegaly. There was no guarding or rebound. Evidence of the prior abdominal surgeries noted. At the most superior aspect of the surgical incision is evidence of some hyper-granulation tissue. At the base of the hyperventilation tissue is exposed mesh. Extremities: There is bilateral lower extremity edema. There some erythema to both lower extremities. Much more prominent on the right lower extremity from the knee distally. There is evidence of the extensive ulceration to the right heel status post incision and drainage from the vascular surgeon. The grossly purulent material is now resolved. However extensive ulceration is still present. There is evidence of the significant ulceration and there is grossly purulent material. Incision and drainage at the bedside per the surgeon today. Neuro: The patient is less encephalopathic. Knows his name is Eduardo. His is Genny. Not conversational but awake - Labs CBC & Chem 7: 09/25/16 07:26 09/25/16 07:26 Labs: Abnormal Lab Results - Last 24 Hours (Table) 09/24/16 09/25/16 09/25/16 Range/Units 20:58 07:26 07:26 WBC 12.2 H (3.8-10.6) k/uL Hgb 12.8 L (13.0-17.5) gm/dL MCV 101.7 H (80.0-100.0) fL MCHC 28.9 L (31.0-37.0) g/dL RDW 16.5 H (11.5-15.5) % PT (9.0-12.0) sec Sodium 151 H (137-145) mmol/L Carbon Dioxide 35 H (22-30) mmol/L BUN 59 H (9-20) mg/dL Creatinine 2.16 H (0.66-1.25) mg/dL Glucose 126 H (74-99) mg/dL POC Glucose (mg/dL) 280 H (75-99) mg/dL 09/25/16 09/25/16 09/25/16 Range/Units 07:26 07:33 11:48 WBC (3.8-10.6) k/uL Hgb (13.0-17.5) gm/dL MCV (80.0-100.0) fL MCHC (31.0-37.0) g/dL RDW (11.5-15.5) % PT 16.1 H (9.0-12.0) sec Sodium (137-145) mmol/L Carbon Dioxide (22-30) mmol/L BUN (9-20) mg/dL Creatinine (0.66-1.25) mg/dL Glucose (74-99) mg/dL POC Glucose (mg/dL) 114 H 188 H (75-99) mg/dL 09/25/16 Range/Units 17:06 WBC (3.8-10.6) k/uL Hgb (13.0-17.5) gm/dL MCV (80.0-100.0) fL MCHC (31.0-37.0) g/dL RDW (11.5-15.5) % PT (9.0-12.0) sec Sodium (137-145) mmol/L Carbon Dioxide (22-30) mmol/L BUN (9-20) mg/dL Creatinine (0.66-1.25) mg/dL Glucose (74-99) mg/dL POC Glucose (mg/dL) 259 H (75-99) mg/dL Microbiology - Last 24 Hours (Table) 09/20/16 17:30 Gram Stain - Preliminary Heel - Right Wound Culture - Preliminary Methicillin resist S. aureus Enterobacter hormaechei Laboratory Results WBC 12.2 k/uL (3.8-10.6) H 09/25/16 07:26 RBC 4.37 m/uL (4.30-5.90) 09/25/16 07:26 Hgb 12.8 gm/dL (13.0-17.5) L 09/25/16 07:26 Hct 44.4 % (39.0-53.0) 09/25/16 07:26 MCV 101.7 fL (80.0-100.0) H 09/25/16 07:26 MCH 29.3 pg (25.0-35.0) 09/25/16 07:26 MCHC 28.9 g/dL (31.0-37.0) L 09/25/16 07:26 RDW 16.5 % (11.5-15.5) H 09/25/16 07:26 Plt Count 342 k/uL (150-450) 09/25/16 07:26 Neutrophils % 72 % 09/20/16 05:37 Neutrophils % (Manual) 74.0 % 09/19/16 05:27 Lymphocytes % 10 % 09/20/16 05:37 Lymphocytes % (Manual) 12.0 % 09/19/16 05:27 Monocytes % 7 % 09/20/16 05:37 Monocytes % (Manual) 9.0 % 09/19/16 05:27 Eosinophils % 6 % 09/20/16 05:37 Eosinophils % (Manual) 5.0 % 09/19/16 05:27 Basophils % 1 % 09/20/16 05:37 Neutrophils # 7.1 k/uL (1.3-7.7) 09/20/16 05:37 Neutrophils # (Manual) 6.7 k/uL (1.3-7.7) 09/19/16 05:27 Lymphocytes # 1.0 k/uL (1.0-4.8) 09/20/16 05:37 Lymphocytes # (Manual) 1.1 k/uL (1.0-4.8) 09/19/16 05:27 Monocytes # 0.7 k/uL (0-1.0) 09/20/16 05:37 Monocytes # (Manual) 0.8 k/uL (0-1.0) 09/19/16 05:27 Eosinophils # 0.6 k/uL (0-0.7) 09/20/16 05:37 Eosinophils # (Manual) 0.5 k/uL (0-0.7) 09/19/16 05:27 Basophils # 0.1 k/uL (0-0.2) 09/20/16 05:37 Nucleated RBCs 0 /100 WBC (0-0) 09/19/16 05:27 Manual Slide Review Performed 09/18/16 05:27 Polychromasia Present 09/19/16 05:27 Hypochromasia Marked 09/25/16 07:26 Poikilocytosis Slight 09/21/16 06:19 Anisocytosis Slight 09/25/16 07:26 Macrocytosis Moderate 09/25/16 07:26 PT 16.1 sec (9.0-12.0) H 09/25/16 07:26 INR 1.7 (<1.1) 09/25/16 07:26 APTT 56.9 sec (22.0-30.0) H 09/07/16 17:56 Sample Site rrad 09/18/16 10:22 ABG pH 7.28 (7.35-7.45) L 09/18/16 10:22 ABG pCO2 58 mmHg (35-45) H 09/18/16 10:22 ABG pO2 65 mmHg (83-108) L 09/18/16 10:22 ABG HCO3 26 mmol/L (21-25) H 09/18/16 10:22 ABG Total CO2 28 mmol/L (19-24) H 09/18/16 10:22 ABG O2 Saturation 89.0 % (94-97) L 09/18/16 10:22 ABG Base Excess 0.3 mmol/L 09/18/16 10:22 FiO2 36 % 09/18/16 10:22 Sodium 151 mmol/L (137-145) H 09/25/16 07:26 Potassium 4.1 mmol/L (3.5-5.1) 09/25/16 07:26 Chloride 103 mmol/L (98-107) 09/25/16 07:26 Carbon Dioxide 35 mmol/L (22-30) H 09/25/16 07:26 Anion Gap 13 mmol/L 09/25/16 07:26 BUN 59 mg/dL (9-20) H 09/25/16 07:26 Creatinine 2.16 mg/dL (0.66-1.25) H 09/25/16 07:26 Est GFR (MDRD) Af Amer 38 (>60 ml/min/1.73 sqM) 09/25/16 07:26 Est GFR (MDRD) Non-Af 31 (>60 ml/min/1.73 sqM) 09/25/16 07:26 Glucose 126 mg/dL (74-99) H 09/25/16 07:26 POC Glucose (mg/dL) 259 mg/dL (75-99) H 09/25/16 17:06 POC Glu Supervisor Policy Change Clerks ID Zoraida Douglas 09/25/16 17:06 Calcium 8.5 mg/dL (8.4-10.2) 09/25/16 07:26 Phosphorus 9.2 mg/dL (2.5-4.5) H* 09/08/16 05:46 Magnesium 1.9 mg/dL (1.6-2.3) 09/08/16 05:46 Total Bilirubin 1.3 mg/dL (0.2-1.3) 09/25/16 07:26 AST 38 U/L (17-59) 09/25/16 07:26 ALT 25 U/L (21-72) 09/25/16 07:26 Alkaline Phosphatase 79 U/L (38-126) 09/25/16 07:26 Ammonia 35 umol/L (<30) H 09/07/16 17:56 Total Creatine Kinase 23 U/L (55-170) L 09/08/16 05:46 CK-MB (CK-2) 2.3 ng/mL (0.0-2.4) 09/08/16 05:46 CK-MB (CK-2) Rel Index 10.0 09/08/16 05:46 Troponin I 0.022 ng/mL (0.000-0.034) 09/08/16 05:46 Total Protein 7.2 g/dL (6.3-8.2) 09/25/16 07:26 Albumin 3.5 g/dL (3.5-5.0) 09/25/16 07:26 Urine Color Yellow 09/07/16 20:45 Urine Appearance Cloudy (Clear) 09/07/16 20:45 Urine pH 6.0 (5.0-8.0) 09/07/16 20:45 Ur Specific [place] 1.015 (1.001-1.035) 09/07/16 20:45 Urine Protein 3+ (Negative) H 09/07/16 20:45 Urine Glucose (UA) Negative (Negative) 09/07/16 20:45 Urine Ketones Negative (Negative) 09/07/16 20:45 Urine Blood Moderate (Negative) H 09/07/16 20:45 Urine Nitrite Negative (Negative) 09/07/16 20:45 Urine Bilirubin Negative (Negative) 09/07/16 20:45 Urine Urobilinogen <2.0 mg/dL (<2.0) 09/07/16 20:45 Ur Leukocyte Esterase Large (Negative) H 09/07/16 20:45 Urine RBC 63 /hpf (0-5) H 09/07/16 20:45 Urine WBC 90 /hpf (0-5) H 09/07/16 20:45 Urine WBC Clumps Many /hpf (None) H 09/07/16 20:45 Hyaline Casts 3 /lpf (0-2) H 09/07/16 20:45 Urine Mucus Rare /hpf (None) H 09/07/16 20:45 Urine Eosinophils 0 % 09/09/16 00:45 LYNSEY Screen NEGATIVE (NEGATIVE) 09/10/16 06:38 c-ANCA <1:20 Titer (<1:20) 09/10/16 06:38 p-ANCA <1:20 Titer (<1:20) 09/10/16 06:38 Double Strand DNA Ab NEGATIVE (NEGATIVE) 09/10/16 06:38 Anti-DNA Ab Interp <1.0 IU/mL 09/10/16 06:38 Complement C3 132 mg/dL (88-165) 09/10/16 06:38 Complement C4 38 mg/dL (14-44) 09/10/16 06:38 Hep Bs Antigen Negative 09/10/16 06:38 Hep Bs Antibody Negative (Negative) 09/09/16 06:18 Hep B Core Total Ab Non-Reactive (Non-Reactive) 09/08/16 05:46 Hep C IgG Ab Negative (Negative) 09/10/16 06:38 Microbiology 09/20/16 17:30 Heel - Right Gram Stain - Preliminary 09/20/16 17:30 Heel - Right Wound Culture - Preliminary Methicillin resist S. aureus Enterobacter hormaechei 09/16/16 11:42 Blood Blood Culture - Final No Growth after 144 hours 09/07/16 17:56 Blood Blood Culture - Final No Growth after 144 hours 09/08/16 16:45 Urine,Catheterized Urine Culture - Final Radhika albicans Assessment and Plan (1) Acute on chronic kidney failure Status: Acute (2) Diabetic ulcer of foot associated with diabetes mellitus due to underlying condition, with necrosis of bone Narrative/Plan: 61-year-old male who has many medical troubles includes diabetes mellitus type 2 uncontrolled with multiple complications including osteitis to heal. With his chronic renal insufficiency that has become acute renal failure requiring hemodialysis as causes status to worsen even further. The heel ulceration has become more infected with more tissue necrosis. Vascular surgery has evaluated. Plans today for debridement concern that there will be more extensive infection and may need extensive debridement and possible amputation. However anesthesia would not give him significant amounts of anesthesia and only a bedside procedure may be performed. Antibiotic therapy will be utilized based on the prior cultures and cefepime, daptomycin, and micafungin will be utilized at the moment. As noted during his last stay his prognosis remains very poor. Patient is appropriate for DO NOT RESUSCITATE status and fortunately the family has finally agreed. However aggressive therapy is still continuing per their request. Fortunately his respiratory status is slightly better possibly due to the hemodialysis and improvement of his acid base status His mental status is poor but improving. Appears to be from improving infection and is metabolic status with dialysis. remains hopeful but will consider hospice in the future As far as the heel there is evidence of pathogen now resistant to the cefepime. This is transitioned to ertapenem. Continue local wound care. Status: Acute (3) Smoking Status: Acute (4) Morbid obesity Status: Acute
[2016-09-25] MEDS: COLLAGENASE 250 UNIT/GM OINTMENT 30 GM TUBE TOPICAL SCH (20:00)
[2016-09-25] MEDS: FINASTERIDE 5 MG TAB PO SCH (20:01)
[2016-09-25 20:30] LABS: Glucose,Whole Blood 218 mg/dL (75-99)
[2016-09-25] MEDS: ERTAPENEM 1 GM in SODIUM CHLORIDE 0.9% 50 ML IVPB SCH (21:04)
[2016-09-26] MEDS: DEXTROSE 5% IN WATER 1,000 ML IV SCH ×3 (00:05→20:02)
[2016-09-26 06:59] LABS: Glucose,Whole Blood 123 mg/dL (75-99)
[2016-09-26] MEDS: INSULIN LISPRO (humaLOG) 300 UNIT/3 ML VIAL SQ SCH ×4 (07:04→22:44)
[2016-09-26] MEDS: DAPTOmycin 500 MG in SODIUM CHLORIDE 0.9% 50 ML IV SCH (08:04)
[2016-09-26] MEDS: FENOFIBRATE 160 MG TAB PO SCH (08:06)
[2016-09-26] MEDS: SEVELAMER 800 MG TAB PO SCH ×2 (08:06→12:56)
[2016-09-26] MEDS: NIACIN TR 500 MG CAPSULE.ER PO SCH (08:07)
[2016-09-26] MEDS: ASPIRIN 81 MG CHEW PO SCH (08:07)
[2016-09-26] MEDS: METOPROLOL TARTRATE 50 MG TAB PO SCH ×3 (08:07→22:45)
[2016-09-26] MEDS: predniSONE 20 MG TAB PO SCH (08:07)
[2016-09-26] MEDS: ALLOPURINOL 100 MG TAB PO SCH (08:08)
[2016-09-26] MEDS: THIAMINE 100 MG TAB PO SCH ×2 (08:08→20:03)
[2016-09-26 09:00] LABS: Anisocytosis Slight; Basophils # (A) 0.1 k/uL (0-0.2); Basophils % (A) 0 %; CH 29.6; CHCM 29.6; Eosinophils # (A) 0.2 k/uL (0-0.7); Eosinophils % (A) 1 %; HCT 46.5 % (39.0-53.0); HDW 3.04; HGB 13.4 gm/dL (13.0-17.5); Hypochromasia Marked; Luc # (Auto) 0.28; Luc % (Auto) 2; Lymphocytes # (A) 1.5 k/uL (1.0-4.8); Lymphocytes % (A) 10 %; MCH 29.1 pg (25.0-35.0); MCHC 28.9 g/dL (31.0-37.0); MCV 100.7 fL (80.0-100.0); Macrocytosis Slight; Mean Platelet Volume 8.1; Monocytes # (A) 0.9 k/uL (0-1.0); Monocytes % (A) 6 %; Neutrophils # (A) 12.7 k/uL (1.3-7.7); Neutrophils % (A) 82 %; RBC 4.62 m/uL (4.30-5.90); RDW 16.8 % (11.5-15.5); WBC 15.5 k/uL (3.8-10.6); WBC (Perox) 15.42
[2016-09-26 09:10] LABS: Calcium 8.6 mg/dL (8.4-10.2); Potassium 4.3 mmol/L (3.5-5.1); Total Bilirubin 1.3 mg/dL (0.2-1.3); Total Protein 7.3 g/dL (6.3-8.2)
[2016-09-26] MEDS ORDERED: QUEtiapine 25 MG TAB PO STA (09:16)
[2016-09-26 09:24] LABS: INR 2.1 (<1.1); Prothrombin Time 20.5 sec (9.0-12.0)
[2016-09-26] MEDS: DILTIAZEM ORAL 60 MG TAB PO SCH ×3 (10:01→22:45)
[2016-09-26 12:29] LABS: Glucose,Whole Blood 223 mg/dL (75-99)
[2016-09-26] MEDS: CYANOCOBALAMIN 500 MCG TAB PO SCH (12:56)
--- NOTE | 2016-09-26 13:31 | P.PN ---
Subjective Mr. Nunez is a 61-year-old gentleman who is seen in cross coverage for Dr. Franks Patient has a history of peripheral arterial disease congestive heart failure and acute kidney injury with a hemodialysis in the past Patient is currently on 3 L of supplemental oxygen at this time states that he does not have any complaints however patient's baseline mental status is that he is not able to really answer questions appropriately Today patient does not have any additional complaints overnight events are reported by the RN 09/26/2016 patient apparently was agitated this morning was pulling all his tubes Also was noted to be in atrial fibrillation with rapid ventricular rate. No fevers chills nausea vomiting reported Early resting comfortably. I did direct to give a dose of Seroquel and start Cardizem 60 3 times a day this morning Objective - Vital Signs Vital signs: Vital Signs Temp 97.5 F L 09/26/16 07:00 Pulse 126 H 09/26/16 07:00 Resp 24 09/26/16 07:00 BP 149/93 09/26/16 07:00 Pulse Ox 91 L 09/26/16 07:00 Intake & Output 09/25/16 09/26/16 09/26/16 18:59 06:59 18:59 Intake Total 240 100 Output Total 600 1300 Balance -360 -1200 Weight 123.5 kg 125 kg Intake: Oral 240 100 Output: Urine 600 1300 Other: Voiding Method Indwelling Catheter Indwelling Catheter Indwelling Catheter # Bowel Movements 1 2 - Exam Gen. appearance comfortable Neck is supple no JVD Heart irregularly irregular no murmurs appreciated Lungs no crackles appreciated a diminished breath sounds Abdomen soft nontender organomegaly and previous surgical scars are noted Lower extremities the bandage is noted over the right foot Neuro moves all 4 extremities - Labs CBC & Chem 7: 09/26/16 08:07 09/26/16 08:07 Labs: Abnormal Lab Results - Last 24 Hours (Table) 09/25/16 09/25/16 09/26/16 Range/Units 17:06 20:22 06:58 WBC (3.8-10.6) k/uL MCV (80.0-100.0) fL MCHC (31.0-37.0) g/dL RDW (11.5-15.5) % Neutrophils # (1.3-7.7) k/uL PT (9.0-12.0) sec Sodium (137-145) mmol/L Carbon Dioxide (22-30) mmol/L BUN (9-20) mg/dL Creatinine (0.66-1.25) mg/dL Glucose (74-99) mg/dL POC Glucose (mg/dL) 259 H 218 H 123 H (75-99) mg/dL 09/26/16 09/26/16 09/26/16 Range/Units 08:07 08:07 08:07 WBC 15.5 H (3.8-10.6) k/uL MCV 100.7 H (80.0-100.0) fL MCHC 28.9 L (31.0-37.0) g/dL RDW 16.8 H (11.5-15.5) % Neutrophils # 12.7 H (1.3-7.7) k/uL PT 20.5 H (9.0-12.0) sec Sodium 150 H (137-145) mmol/L Carbon Dioxide 31 H (22-30) mmol/L BUN 62 H (9-20) mg/dL Creatinine 1.84 H (0.66-1.25) mg/dL Glucose 147 H (74-99) mg/dL POC Glucose (mg/dL) (75-99) mg/dL 09/26/16 Range/Units 12:27 WBC (3.8-10.6) k/uL MCV (80.0-100.0) fL MCHC (31.0-37.0) g/dL RDW (11.5-15.5) % Neutrophils # (1.3-7.7) k/uL PT (9.0-12.0) sec Sodium (137-145) mmol/L Carbon Dioxide (22-30) mmol/L BUN (9-20) mg/dL Creatinine (0.66-1.25) mg/dL Glucose (74-99) mg/dL POC Glucose (mg/dL) 223 H (75-99) mg/dL Microbiology - Last 24 Hours (Table) 09/20/16 17:30 Gram Stain - Preliminary Heel - Right Wound Culture - Preliminary Methicillin resist S. aureus Enterobacter hormaechei Assessment and Plan Plan: #1 acute kidney injury with AIN and ATN currently on prednisone #2 metabolic encephalopathy #3 acute on chronic hypoxic respiratory failure #4 right diabetic foot infection status post debridement on antibiotic #5 hypernatremia due to poor oral intake #6 Diabetes mellitus type II #7 moderate protein calorie malnutrition #8 acute fibrillation chronic with rapid ventricular rate today Plan repeat labs name. Sodium appears to be improved. Continue with cervical Start patient on Cardizem 60 mg 3 times a day Patient will be seen by Dr. Franks tomorrow disposition likely to a [place] [facility] facility depending on wound care and recommendations from subspecialists
--- NOTE | 2016-09-26 15:30 | PN ---
Patient is seen for follow-up for acute kidney injury. He is currently lying in bed. Patient is maintained on D5W for hypernatremia. I started him on prednisone. Renal function continues to improve. Patient has been off of dialysis. He has an indwelling Harris catheter and serum creatinine is today at 1.84 mg/dL. Mentation has improved since admission, but not normal yet. On examination, blood pressure 149/93, heart rate 121 per minute. The patient is afebrile. Examination of the heart S1 and S2. Examination of the lungs: Bilateral breath sounds are heard. ABDOMEN: Soft, obese. Examination of lower extremities shows significant cellulitis. Patient has a right diabetic foot with wound infection status post I&D. Labs show sodium 150, potassium 4.3, BUN 62, serum creatinine 1.84, hemoglobin 13.4 g/dL. ASSESSMENT: 1. Acute kidney injury, acute tubular necrosis, currently improving. Patient remains with Harris catheter. He is maintained on prednisone for possible acute interstitial nephritis. His renal function improved significantly once the prednisone was started. Therefore, I will continue with it for another week or so and I will decrease the dose to 30 mg today. 2. Hyperphosphatemia secondary to renal failure, maintained on Renvela. I will recheck another phosphorus level as renal function has improved now. He may need to discontinue the Renvela. 3. Hypernatremia, maintained on D5W and continue at 75 mL per hour, increase to 100 mL per hour tomorrow if serum sodium is not better. 4. Volume overload, currently improved. 5. Right diabetic foot, status post incision and drainage. PLAN: Discontinue Renvela. Check phosphorus level in a.m. Repeat labs in a.m. Decrease prednisone. Will be weaned off the prednisone over the next week to 10 days.
--- NOTE | 2016-09-26 16:22 | P.PN ---
Subjective Principal diagnosis: Right diabetic foot ulcer 61-year-old male who has multiple medical troubles that include diabetes noticed type II poorly controlled, coronary artery disease, congestive heart failure, COPD with CO2 retention and respiratory failure. In the recent past as had difficulties with a nonhealing diabetic foot ulcer that has been followed by the vascular surgeon. Despite local care and have been worsening. He was hospitalized last month with sepsis. He also had atrial fibrillation with RVR and respiratory failure that required many days of BiPAP therapy. Eventually had some improvement and was sent to rehab facility. Apparently within several days he had worsening of his status increasing edema and developed acute renal failure. He is doing poorly at this point in time. His mental status is very poor, similar to when he was having respiratory failure. He's been seen by neurology in the past and thought to be metabolic in nature. He's had a significant right diabetic foot ulceration that evaluation revealed evidence of osteomyelitis. Has been seen by Dr. Delgado, an attempt was for a surgical incision and drainage of the site. However he was so ill anesthesia would not give him anesthesia. Consequently had a incision and drainage the bedside was performed. Case discussed with vascular surgery. Hopes is several days of antibiotic therapy will allow him to improve such that potentially he become a surgical candidate. With hemodialysis and antibiotic therapy he is now had improvement in his mentation does respond to his name. His non-conversational though. Still has a disconcerting intermittent Lasix. Objective - Vital Signs Vital signs: Vital Signs Temp 99.4 F 09/26/16 15:00 Pulse 108 H 09/26/16 15:00 Resp 24 09/26/16 15:00 BP 161/103 09/26/16 15:00 Pulse Ox 95 09/26/16 15:00 Intake & Output 09/25/16 09/26/16 09/26/16 18:59 06:59 18:59 Intake Total 240 100 Output Total 600 1300 Balance -360 -1200 Weight 123.5 kg 125 kg Intake: Oral 240 100 Output: Urine 600 1300 Other: Voiding Method Indwelling Catheter Indwelling Catheter Indwelling Catheter # Bowel Movements 1 2 2 - Exam 61 year-old male who suffers from obesity. He seems comfortable but does not interact well with the observer. Despite stimulation he does not talk and his only very brief eye opening. At one time during the exam he appears to be dreaming and is laughing out loud a bit HEENT: Anicteric conjunctiva are pink and moist nasal mucosa grossly intact without significant lesions, there is no thrush. Dentition is warm for age. Neck: The neck is supple without significant lymphadenopathy or thyromegaly. Lungs: Symmetrical air entry is noted with evidence of expiratory wheezes that are scattered. No julian bronchial sounds were noted. No egophony or dullness. Heart: Irregular with an audible S1 and S2, no S3 soft S4, no new murmur click or rub. Abdomen: Obese, Positive bowel sounds soft and nontender without palpable masses or organomegaly. There was no guarding or rebound. Evidence of the prior abdominal surgeries noted. At the most superior aspect of the surgical incision is evidence of some hyper-granulation tissue. At the base of the hyperventilation tissue is exposed mesh. Extremities: There is bilateral lower extremity edema. There some erythema to both lower extremities. Much more prominent on the right lower extremity from the knee distally. There is evidence of the extensive ulceration to the right heel status post incision and drainage from the vascular surgeon. The grossly purulent material is now resolved. However extensive ulceration is still present. There is evidence of the significant ulceration and there is grossly purulent material. Incision and drainage at the bedside per the surgeon today. Neuro: The patient is less encephalopathic. Knows his name is Eduardo. His is Genny. Not conversational but awake - Labs CBC & Chem 7: 09/26/16 08:07 09/26/16 08:07 Labs: Abnormal Lab Results - Last 24 Hours (Table) 09/25/16 09/25/16 09/26/16 Range/Units 17:06 20:22 06:58 WBC (3.8-10.6) k/uL MCV (80.0-100.0) fL MCHC (31.0-37.0) g/dL RDW (11.5-15.5) % Neutrophils # (1.3-7.7) k/uL PT (9.0-12.0) sec Sodium (137-145) mmol/L Carbon Dioxide (22-30) mmol/L BUN (9-20) mg/dL Creatinine (0.66-1.25) mg/dL Glucose (74-99) mg/dL POC Glucose (mg/dL) 259 H 218 H 123 H (75-99) mg/dL 09/26/16 09/26/16 09/26/16 Range/Units 08:07 08:07 08:07 WBC 15.5 H (3.8-10.6) k/uL MCV 100.7 H (80.0-100.0) fL MCHC 28.9 L (31.0-37.0) g/dL RDW 16.8 H (11.5-15.5) % Neutrophils # 12.7 H (1.3-7.7) k/uL PT 20.5 H (9.0-12.0) sec Sodium 150 H (137-145) mmol/L Carbon Dioxide 31 H (22-30) mmol/L BUN 62 H (9-20) mg/dL Creatinine 1.84 H (0.66-1.25) mg/dL Glucose 147 H (74-99) mg/dL POC Glucose (mg/dL) (75-99) mg/dL 09/26/16 Range/Units 12:27 WBC (3.8-10.6) k/uL MCV (80.0-100.0) fL MCHC (31.0-37.0) g/dL RDW (11.5-15.5) % Neutrophils # (1.3-7.7) k/uL PT (9.0-12.0) sec Sodium (137-145) mmol/L Carbon Dioxide (22-30) mmol/L BUN (9-20) mg/dL Creatinine (0.66-1.25) mg/dL Glucose (74-99) mg/dL POC Glucose (mg/dL) 223 H (75-99) mg/dL Microbiology - Last 24 Hours (Table) 09/20/16 17:30 Gram Stain - Preliminary Heel - Right Wound Culture - Preliminary Methicillin resist S. aureus Enterobacter hormaechei Laboratory Results WBC 15.5 k/uL (3.8-10.6) H 09/26/16 08:07 RBC 4.62 m/uL (4.30-5.90) 09/26/16 08:07 Hgb 13.4 gm/dL (13.0-17.5) 09/26/16 08:07 Hct 46.5 % (39.0-53.0) 09/26/16 08:07 MCV 100.7 fL (80.0-100.0) H 09/26/16 08:07 MCH 29.1 pg (25.0-35.0) 09/26/16 08:07 MCHC 28.9 g/dL (31.0-37.0) L 09/26/16 08:07 RDW 16.8 % (11.5-15.5) H 09/26/16 08:07 Plt Count 413 k/uL (150-450) 09/26/16 08:07 Neutrophils % 82 % 09/26/16 08:07 Neutrophils % (Manual) 74.0 % 09/19/16 05:27 Lymphocytes % 10 % 09/26/16 08:07 Lymphocytes % (Manual) 12.0 % 09/19/16 05:27 Monocytes % 6 % 09/26/16 08:07 Monocytes % (Manual) 9.0 % 09/19/16 05:27 Eosinophils % 1 % 09/26/16 08:07 Eosinophils % (Manual) 5.0 % 09/19/16 05:27 Basophils % 0 % 09/26/16 08:07 Neutrophils # 12.7 k/uL (1.3-7.7) H 09/26/16 08:07 Neutrophils # (Manual) 6.7 k/uL (1.3-7.7) 09/19/16 05:27 Lymphocytes # 1.5 k/uL (1.0-4.8) 09/26/16 08:07 Lymphocytes # (Manual) 1.1 k/uL (1.0-4.8) 09/19/16 05:27 Monocytes # 0.9 k/uL (0-1.0) 09/26/16 08:07 Monocytes # (Manual) 0.8 k/uL (0-1.0) 09/19/16 05:27 Eosinophils # 0.2 k/uL (0-0.7) 09/26/16 08:07 Eosinophils # (Manual) 0.5 k/uL (0-0.7) 09/19/16 05:27 Basophils # 0.1 k/uL (0-0.2) 09/26/16 08:07 Nucleated RBCs 0 /100 WBC (0-0) 09/19/16 05:27 Manual Slide Review Performed 09/18/16 05:27 Polychromasia Present 09/19/16 05:27 Hypochromasia Marked 09/26/16 08:07 Poikilocytosis Slight 09/21/16 06:19 Anisocytosis Slight 09/26/16 08:07 Macrocytosis Slight 09/26/16 08:07 PT 20.5 sec (9.0-12.0) H 09/26/16 08:07 INR 2.1 (<1.1) 09/26/16 08:07 APTT 56.9 sec (22.0-30.0) H 09/07/16 17:56 Sample Site rrad 09/18/16 10:22 ABG pH 7.28 (7.35-7.45) L 09/18/16 10:22 ABG pCO2 58 mmHg (35-45) H 09/18/16 10:22 ABG pO2 65 mmHg (83-108) L 09/18/16 10:22 ABG HCO3 26 mmol/L (21-25) H 09/18/16 10:22 ABG Total CO2 28 mmol/L (19-24) H 09/18/16 10:22 ABG O2 Saturation 89.0 % (94-97) L 09/18/16 10:22 ABG Base Excess 0.3 mmol/L 09/18/16 10:22 FiO2 36 % 09/18/16 10:22 Sodium 150 mmol/L (137-145) H 09/26/16 08:07 Potassium 4.3 mmol/L (3.5-5.1) 09/26/16 08:07 Chloride 105 mmol/L (98-107) 09/26/16 08:07 Carbon Dioxide 31 mmol/L (22-30) H 09/26/16 08:07 Anion Gap 14 mmol/L 09/26/16 08:07 BUN 62 mg/dL (9-20) H 09/26/16 08:07 Creatinine 1.84 mg/dL (0.66-1.25) H 09/26/16 08:07 Est GFR (MDRD) Af Amer 46 (>60 ml/min/1.73 sqM) 09/26/16 08:07 Est GFR (MDRD) Non-Af 38 (>60 ml/min/1.73 sqM) 09/26/16 08:07 Glucose 147 mg/dL (74-99) H 09/26/16 08:07 POC Glucose (mg/dL) 223 mg/dL (75-99) H 09/26/16 12:27 POC Glu [employer] ID Soila Sloan 09/26/16 12:27 Calcium 8.6 mg/dL (8.4-10.2) 09/26/16 08:07 Phosphorus 9.2 mg/dL (2.5-4.5) H* 09/08/16 05:46 Magnesium 1.9 mg/dL (1.6-2.3) 09/08/16 05:46 Total Bilirubin 1.3 mg/dL (0.2-1.3) 09/26/16 08:07 AST 42 U/L (17-59) 09/26/16 08:07 ALT 29 U/L (21-72) 09/26/16 08:07 Alkaline Phosphatase 82 U/L (38-126) 09/26/16 08:07 Ammonia 35 umol/L (<30) H 09/07/16 17:56 Total Creatine Kinase 23 U/L (55-170) L 09/08/16 05:46 CK-MB (CK-2) 2.3 ng/mL (0.0-2.4) 09/08/16 05:46 CK-MB (CK-2) Rel Index 10.0 09/08/16 05:46 Troponin I 0.022 ng/mL (0.000-0.034) 09/08/16 05:46 Total Protein 7.3 g/dL (6.3-8.2) 09/26/16 08:07 Albumin 3.6 g/dL (3.5-5.0) 09/26/16 08:07 Urine Color Yellow 09/07/16 20:45 Urine Appearance Cloudy (Clear) 09/07/16 20:45 Urine pH 6.0 (5.0-8.0) 09/07/16 20:45 Ur Specific [place] 1.015 (1.001-1.035) 09/07/16 20:45 Urine Protein 3+ (Negative) H 09/07/16 20:45 Urine Glucose (UA) Negative (Negative) 09/07/16 20:45 Urine Ketones Negative (Negative) 09/07/16 20:45 Urine Blood Moderate (Negative) H 09/07/16 20:45 Urine Nitrite Negative (Negative) 09/07/16 20:45 Urine Bilirubin Negative (Negative) 09/07/16 20:45 Urine Urobilinogen <2.0 mg/dL (<2.0) 09/07/16 20:45 Ur Leukocyte Esterase Large (Negative) H 09/07/16 20:45 Urine RBC 63 /hpf (0-5) H 09/07/16 20:45 Urine WBC 90 /hpf (0-5) H 09/07/16 20:45 Urine WBC Clumps Many /hpf (None) H 09/07/16 20:45 Hyaline Casts 3 /lpf (0-2) H 09/07/16 20:45 Urine Mucus Rare /hpf (None) H 09/07/16 20:45 Urine Eosinophils 0 % 09/09/16 00:45 LYNSEY Screen NEGATIVE (NEGATIVE) 09/10/16 06:38 c-ANCA <1:20 Titer (<1:20) 09/10/16 06:38 p-ANCA <1:20 Titer (<1:20) 09/10/16 06:38 Double Strand DNA Ab NEGATIVE (NEGATIVE) 09/10/16 06:38 Anti-DNA Ab Interp <1.0 IU/mL 09/10/16 06:38 Complement C3 132 mg/dL (88-165) 09/10/16 06:38 Complement C4 38 mg/dL (14-44) 09/10/16 06:38 Hep Bs Antigen Negative 09/10/16 06:38 Hep Bs Antibody Negative (Negative) 09/09/16 06:18 Hep B Core Total Ab Non-Reactive (Non-Reactive) 09/08/16 05:46 Hep C IgG Ab Negative (Negative) 09/10/16 06:38 Microbiology 09/20/16 17:30 Heel - Right Gram Stain - Preliminary 09/20/16 17:30 Heel - Right Wound Culture - Preliminary Methicillin resist S. aureus Enterobacter hormaechei 09/16/16 11:42 Blood Blood Culture - Final No Growth after 144 hours 09/07/16 17:56 Blood Blood Culture - Final No Growth after 144 hours 09/08/16 16:45 Urine,Catheterized Urine Culture - Final Radhika albicans Assessment and Plan (1) Acute on chronic kidney failure Status: Acute (2) Diabetic ulcer of foot associated with diabetes mellitus due to underlying condition, with necrosis of bone Narrative/Plan: 61-year-old male who has many medical troubles includes diabetes mellitus type 2 uncontrolled with multiple complications including osteitis to heal. With his chronic renal insufficiency that has become acute renal failure requiring hemodialysis as causes status to worsen even further. The heel ulceration has become more infected with more tissue necrosis. Vascular surgery has evaluated. Plans today for debridement concern that there will be more extensive infection and may need extensive debridement and possible amputation. However anesthesia would not give him significant amounts of anesthesia and only a bedside procedure may be performed. Antibiotic therapy will be utilized based on the prior cultures and cefepime, daptomycin, and micafungin will be utilized at the moment. As noted during his last stay his prognosis remains very poor. Patient is appropriate for DO NOT RESUSCITATE status and fortunately the family has finally agreed. However aggressive therapy is still continuing per their request. Fortunately his respiratory status is slightly better possibly due to the hemodialysis and improvement of his acid base status His mental status is poor but improving. Appears to be from improving infection and is metabolic status with dialysis. remains hopeful but will consider hospice in the future As far as the heel there is evidence of pathogen now resistant to the cefepime. This is transitioned to ertapenem. May have some improvement today. Continue local wound care. Status: Acute (3) Smoking Status: Acute (4) Morbid obesity Status: Acute
[2016-09-26 17:07] LABS: Glucose,Whole Blood 328 mg/dL (75-99)
[2016-09-26] MEDS: WARFARIN 1 MG TAB PO SCH (17:33)
[2016-09-26] MEDS ORDERED: INSULIN REGULAR 100 UNIT/ML VIAL IV ONE (18:07)
[2016-09-26] MEDS: MICAFUNGIN 100 MG in SODIUM CHLORIDE 0.9% 100 ML IVPB SCH (19:58)
[2016-09-26] MEDS: FINASTERIDE 5 MG TAB PO SCH (20:03)
[2016-09-26] MEDS: COLLAGENASE 250 UNIT/GM OINTMENT 30 GM TUBE TOPICAL SCH (20:03)
[2016-09-26 20:56] LABS: Glucose,Whole Blood 265 mg/dL (75-99)
[2016-09-26] MEDS: ERTAPENEM 1 GM in SODIUM CHLORIDE 0.9% 50 ML IVPB SCH (22:44)
[2016-09-27 07:16] LABS: Glucose,Whole Blood 119 mg/dL (75-99)
[2016-09-27] MEDS: INSULIN LISPRO (humaLOG) 300 UNIT/3 ML VIAL SQ SCH ×4 (07:29→22:03)
[2016-09-27] MEDS: METOPROLOL TARTRATE 50 MG TAB PO SCH ×3 (07:32→22:04)
[2016-09-27] MEDS: ALLOPURINOL 100 MG TAB PO SCH (07:32)
[2016-09-27] MEDS: ASPIRIN 81 MG CHEW PO SCH (07:32)
[2016-09-27] MEDS: FENOFIBRATE 160 MG TAB PO SCH (07:32)
[2016-09-27] MEDS: NIACIN TR 500 MG CAPSULE.ER PO SCH (07:32)
[2016-09-27] MEDS: THIAMINE 100 MG TAB PO SCH ×2 (07:32→22:03)
[2016-09-27] MEDS: predniSONE 10 MG TAB PO SCH (07:32)
[2016-09-27] MEDS: DILTIAZEM ORAL 60 MG TAB PO SCH ×3 (07:35→23:25)
[2016-09-27] MEDS: DAPTOmycin 500 MG in SODIUM CHLORIDE 0.9% 50 ML IV SCH (07:35)
--- NOTE | 2016-09-27 08:16 | P.PN ---
Subjective Principal diagnosis: Continue care This is a continue progress note on a 61-year-old white male essentially admitted for altered mental status. Metabolic encephalopathy with acute on chronic renal failure was diagnosed. He also has diabetic foot ulcer with osteomyelitis. Wound culture is noted. Infectious diseases consulted. The patient actually is answering questions more appropriately. He was quite confused for almost 2 weeks because of encephalopathy. And answers questions seemingly almost back to baseline. Less confusion is noted. Objective - Vital Signs Vital signs: Vital Signs Temp 97.4 F L 09/27/16 07:00 Pulse 118 H 09/27/16 07:00 Resp 20 09/27/16 07:00 BP 155/102 09/27/16 07:00 Pulse Ox 94 L 09/27/16 07:00 Intake & Output 09/26/16 09/27/16 09/27/16 18:59 06:59 18:59 Output Total 850 950 Balance -850 -950 Output: Urine 850 950 Other: Voiding Method Indwelling Catheter Indwelling Catheter # Bowel Movements 2 - Constitutional General appearance: Present: average body habitus, obese - EENT Eyes: Absent: abnormal pupil - Respiratory Respiratory: bilateral: diminished - Cardiovascular Rhythm: irregularly irregular Heart sounds: normal: S1, S2 - Gastrointestinal General gastrointestinal: Present: soft. Absent: tenderness - Musculoskeletal Musculoskeletal: Present: generalized weakness - Psychiatric Psychiatric: Present: appropriate affect - Labs CBC & Chem 7: 09/26/16 08:07 09/26/16 08:07 Labs: Abnormal Lab Results - Last 24 Hours (Table) 09/26/16 09/26/16 09/26/16 Range/Units 08:07 08:07 08:07 WBC 15.5 H (3.8-10.6) k/uL MCV 100.7 H (80.0-100.0) fL MCHC 28.9 L (31.0-37.0) g/dL RDW 16.8 H (11.5-15.5) % Neutrophils # 12.7 H (1.3-7.7) k/uL PT 20.5 H (9.0-12.0) sec Sodium 150 H (137-145) mmol/L Carbon Dioxide 31 H (22-30) mmol/L BUN 62 H (9-20) mg/dL Creatinine 1.84 H (0.66-1.25) mg/dL Glucose 147 H (74-99) mg/dL POC Glucose (mg/dL) (75-99) mg/dL Plasma Lactic Acid Cristiano (0.7-2.0) mmol/L 09/26/16 09/26/16 09/26/16 Range/Units 12:27 17:05 17:06 WBC (3.8-10.6) k/uL MCV (80.0-100.0) fL MCHC (31.0-37.0) g/dL RDW (11.5-15.5) % Neutrophils # (1.3-7.7) k/uL PT (9.0-12.0) sec Sodium (137-145) mmol/L Carbon Dioxide (22-30) mmol/L BUN (9-20) mg/dL Creatinine (0.66-1.25) mg/dL Glucose (74-99) mg/dL POC Glucose (mg/dL) 223 H 328 H (75-99) mg/dL Plasma Lactic Acid Cristiano 2.7 H* (0.7-2.0) mmol/L 09/26/16 09/27/16 Range/Units 20:55 06:55 WBC (3.8-10.6) k/uL MCV (80.0-100.0) fL MCHC (31.0-37.0) g/dL RDW (11.5-15.5) % Neutrophils # (1.3-7.7) k/uL PT (9.0-12.0) sec Sodium (137-145) mmol/L Carbon Dioxide (22-30) mmol/L BUN (9-20) mg/dL Creatinine (0.66-1.25) mg/dL Glucose (74-99) mg/dL POC Glucose (mg/dL) 265 H 119 H (75-99) mg/dL Plasma Lactic Acid Crsitiano (0.7-2.0) mmol/L Microbiology - Last 24 Hours (Table) 09/20/16 17:30 Gram Stain - Preliminary Heel - Right Wound Culture - Preliminary Methicillin resist S. aureus Enterobacter hormaechei Radhika albicans Assessment and Plan (1) Acute kidney injury Status: Acute (2) Cellulitis of right leg Status: Acute (3) Chronic a-fib Status: Chronic (4) Congestive heart failure Status: Acute (5) Generalized weakness Status: Acute (6) Pulmonary HTN Status: Acute (7) Sundowning Status: Acute (8) Acute on chronic kidney failure Status: Acute (9) Nutrition deficiency due to insufficient food Status: Acute (10) Malnutrition of moderate degree Status: Acute Plan: Actual improvement in mental status. Debridement of foot with possible amputation is still on the table. Check CBC and CMP in a.m. Anderson, continue current regimen of antibiotic treatment. ECF placement should again be entertained. Prognosis is guarded secondary to his multiple comorbidities. Time with Patient: Less than 30
[2016-09-27 08:29] LABS: Anisocytosis Slight; Basophils % (A) 0 %; CH 29.9; CHCM 30.4; Eosinophils # (A) 0.3 k/uL (0-0.7); Eosinophils % (A) 2 %; HCT 43.8 % (39.0-53.0); HDW 3.24; HGB 13.3 gm/dL (13.0-17.5); Hypochromasia Marked; Luc # (Auto) 0.27; Luc % (Auto) 2; Lymphocytes # (A) 1.4 k/uL (1.0-4.8); Lymphocytes % (A) 11 %; MCHC 30.3 g/dL (31.0-37.0); Macrocytosis Slight; Mean Platelet Volume 7.8; Monocytes # (A) 0.7 k/uL (0-1.0); Monocytes % (A) 5 %; Neutrophils % (A) 80 %; RBC 4.42 m/uL (4.30-5.90); RDW 17.1 % (11.5-15.5); WBC 13.7 k/uL (3.8-10.6); WBC (Perox) 13.83
[2016-09-27 08:41] LABS: Prothrombin Time 18.9 sec (9.0-12.0)
[2016-09-27 08:42] LABS: Calcium 8.5 mg/dL (8.4-10.2); Potassium 4.2 mmol/L (3.5-5.1); Total Bilirubin 1.5 mg/dL (0.2-1.3); Total Protein 7.2 g/dL (6.3-8.2)
--- NOTE | 2016-09-27 10:34 | P.PN ---
Subjective Patient is seen in follow-up for acute kidney injury secondary to ATN and possible AIN. Renal function is improving with creatinine down to 1.74 today. However sodium level is up to 153 this morning. Patient is not a very reliable historian. He is nonoliguric. No vomiting or diarrhea. Currently maintained on prednisone and the dose was decreased to 30 mg daily on September 26. Vital signs are stable. General: The patient appeared well nourished and normally developed. HEENT: Head exam is unremarkable. Neck is without jugular venous distension. LUNGS: Lungs are clear to auscultation and percussion. Breath sounds decreased. HEART: Rate and Rhythm are regular. First and second heart sounds normal. No murmurs, rubs or gallops. ABDOMEN: Abdominal exam reveals normal bowel sounds. Non-tender and non- distended. No evidence of peritonitis. EXTREMITITES: No clubbing, cyanosis, or edema. Chronic changes noted. No obvious drainage. Objective - Vital Signs Vital signs: Vital Signs Temp 97.4 F L 09/27/16 07:00 Pulse 118 H 09/27/16 07:00 Resp 20 09/27/16 07:00 BP 155/102 09/27/16 07:00 Pulse Ox 94 L 09/27/16 07:00 Intake & Output 09/26/16 09/27/16 09/27/16 18:59 06:59 18:59 Output Total 850 950 Balance -850 -950 Output: Urine 850 950 Other: Voiding Method Indwelling Catheter Indwelling Catheter # Bowel Movements 2 - Labs CBC & Chem 7: 09/27/16 08:01 09/27/16 08:01 Labs: Abnormal Lab Results - Last 24 Hours (Table) 09/26/16 09/26/16 09/26/16 Range/Units 12:27 17:05 17:06 WBC (3.8-10.6) k/uL MCHC (31.0-37.0) g/dL RDW (11.5-15.5) % Neutrophils # (1.3-7.7) k/uL PT (9.0-12.0) sec Sodium (137-145) mmol/L Carbon Dioxide (22-30) mmol/L BUN (9-20) mg/dL Creatinine (0.66-1.25) mg/dL Glucose (74-99) mg/dL POC Glucose (mg/dL) 223 H 328 H (75-99) mg/dL Plasma Lactic Acid Cristiano 2.7 H* (0.7-2.0) mmol/L Total Bilirubin (0.2-1.3) mg/dL 09/26/16 09/27/16 09/27/16 Range/Units 20:55 06:55 08:01 WBC (3.8-10.6) k/uL MCHC (31.0-37.0) g/dL RDW (11.5-15.5) % Neutrophils # (1.3-7.7) k/uL PT 18.9 H (9.0-12.0) sec Sodium (137-145) mmol/L Carbon Dioxide (22-30) mmol/L BUN (9-20) mg/dL Creatinine (0.66-1.25) mg/dL Glucose (74-99) mg/dL POC Glucose (mg/dL) 265 H 119 H (75-99) mg/dL Plasma Lactic Acid Cristiano (0.7-2.0) mmol/L Total Bilirubin (0.2-1.3) mg/dL 09/27/16 09/27/16 Range/Units 08:01 08:01 WBC 13.7 H (3.8-10.6) k/uL MCHC 30.3 L (31.0-37.0) g/dL RDW 17.1 H (11.5-15.5) % Neutrophils # 11.0 H (1.3-7.7) k/uL PT (9.0-12.0) sec Sodium 153 H (137-145) mmol/L Carbon Dioxide 36 H (22-30) mmol/L BUN 59 H (9-20) mg/dL Creatinine 1.74 H (0.66-1.25) mg/dL Glucose 154 H (74-99) mg/dL POC Glucose (mg/dL) (75-99) mg/dL Plasma Lactic Acid Cristiano (0.7-2.0) mmol/L Total Bilirubin 1.5 H (0.2-1.3) mg/dL Microbiology - Last 24 Hours (Table) 09/20/16 17:30 Gram Stain - Preliminary Heel - Right Wound Culture - Preliminary Methicillin resist S. aureus Enterobacter hormaechei Radhika albicans Assessment and Plan Plan: Assessment: #1. Nonoliguric acute kidney injury secondary to ATN with additional possible AIN. Currently maintained on prednisone 30 mg daily (dose decreased on September 26) . Renal function improving. Creatinine 1.74 today. #2. Hypernatremia secondary to lack of oral water intake. #3. Diabetic foot ulcer maintained on antibiotics. Plan: Increase D5W to be run at 100 mL an hour. Encourage oral intake including water intake. Continue prednisone 30 mg once daily for now. Will taper the dose further in the next 2-3 days. Avoid nephrotoxic agents and hypotensive episodes. Repeat electrolytes in the morning.
[2016-09-27] MEDS: DEXTROSE 5% IN WATER 1,000 ML IV SCH ×4 (10:46→21:08)
[2016-09-27] MEDS: ONDANSETRON 4 MG/2 ML VIAL IVP PRN (11:37)
[2016-09-27 12:12] LABS: Glucose,Whole Blood 228 mg/dL (75-99)
[2016-09-27] MEDS: CYANOCOBALAMIN 500 MCG TAB PO SCH (13:01)
[2016-09-27] MEDS ORDERED: QUEtiapine 25 MG TAB PO PRN (13:28)
[2016-09-27 17:17] LABS: Glucose,Whole Blood 224 mg/dL (75-99)
--- NOTE | 2016-09-27 17:31 | PN ---
This patient is a 61-year-old gentleman who is known to me from the past. Patient came with right foot draining abscess and wound on the right heel. Patient was scheduled to have disarticulation of the foot. Patient has had multiple medical problems; Anesthesia wanted to wait until he improves. We did bedside debridement. Patient has a history of type 2 diabetes, coronary artery disease, congestive heart failure, COPD. Today we have seen the patient, removed the dressing. There is some drainage noted, but the wound was irrigated copiously with saline and Santyl cream was applied and packed with 1% gauze. At this point, patient is more alert than previously. We are following and we will discuss with the family if patient needs further major surgical intervention.
[2016-09-27] MEDS: WARFARIN 1 MG TAB PO SCH (17:39)
[2016-09-27 20:53] LABS: Glucose,Whole Blood 315 mg/dL (75-99)
[2016-09-27] MEDS: ERTAPENEM 1 GM in SODIUM CHLORIDE 0.9% 50 ML IVPB SCH (21:05)
[2016-09-27] MEDS: MICAFUNGIN 100 MG in SODIUM CHLORIDE 0.9% 100 ML IVPB SCH (21:57)
[2016-09-27] MEDS: COLLAGENASE 250 UNIT/GM OINTMENT 30 GM TUBE TOPICAL SCH (22:01)
[2016-09-27] MEDS: FINASTERIDE 5 MG TAB PO SCH (22:03)
--- NOTE | 2016-09-27 23:40 | PCN ---
DATE OF PROCEDURE: 09/23/2016 ADDENDUM TECHNIQUE USED: Excision of the necrotic tissue. Instrument used was a scalpel. Nature of the tissue was necrotic tissue. Depth of the debridement was down into subcutaneous tissue and fat. Measurement of the wound 2 x 2 cm.
[2016-09-28 07:28] LABS: Glucose,Whole Blood 136 mg/dL (75-99)
--- NOTE | 2016-09-28 08:08 | P.PN ---
Subjective This is a continue progress note a 61-year-old white male essentially admitted for diabetic foot ulcer altered mental status. Nutritional status has yielded significant improvements. He is becoming more alert but does not even remember that he had debridement yesterday. I have reviewed Dr. Delgado's notes and we will need to discuss the family whether disarticulation is necessary to completely heal the patient due to his element of osteomyelitis. Otherwise, no voiding difficulties are stated. Objective - Vital Signs Vital signs: Vital Signs Temp 97.5 F L 09/28/16 07:00 Pulse 110 H 09/28/16 07:00 Resp 18 09/28/16 07:00 BP 143/89 09/28/16 07:00 Pulse Ox 92 L 09/28/16 07:00 Intake & Output 09/27/16 09/28/16 09/28/16 18:59 06:59 18:59 Intake Total 240 Output Total 650 1650 Balance -650 -1410 Weight 125 kg Intake: Oral 240 Output: Urine 650 1650 Other: Voiding Method Indwelling Catheter Indwelling Catheter # Bowel Movements 1 1 - Constitutional General appearance: Present: obese - EENT Eyes: Absent: abnormal pupil - Respiratory Respiratory: bilateral: CTA - Cardiovascular Rhythm: irregularly irregular Heart sounds: normal: S1, S2 - Gastrointestinal General gastrointestinal: Absent: splenomegaly - Integumentary Integumentary: Present: cellulitis, rash - Neurologic Neurologic: Present: CNII-XII intact - Labs CBC & Chem 7: 09/27/16 08:01 09/27/16 08:01 Labs: Abnormal Lab Results - Last 24 Hours (Table) 09/27/16 09/27/16 09/27/16 Range/Units 08:01 08:01 08:01 WBC 13.7 H (3.8-10.6) k/uL MCHC 30.3 L (31.0-37.0) g/dL RDW 17.1 H (11.5-15.5) % Neutrophils # 11.0 H (1.3-7.7) k/uL PT 18.9 H (9.0-12.0) sec Sodium 153 H (137-145) mmol/L Carbon Dioxide 36 H (22-30) mmol/L BUN 59 H (9-20) mg/dL Creatinine 1.74 H (0.66-1.25) mg/dL Glucose 154 H (74-99) mg/dL POC Glucose (mg/dL) (75-99) mg/dL Total Bilirubin 1.5 H (0.2-1.3) mg/dL 09/27/16 09/27/16 09/27/16 Range/Units 12:00 16:56 20:51 WBC (3.8-10.6) k/uL MCHC (31.0-37.0) g/dL RDW (11.5-15.5) % Neutrophils # (1.3-7.7) k/uL PT (9.0-12.0) sec Sodium (137-145) mmol/L Carbon Dioxide (22-30) mmol/L BUN (9-20) mg/dL Creatinine (0.66-1.25) mg/dL Glucose (74-99) mg/dL POC Glucose (mg/dL) 228 H 224 H 315 H (75-99) mg/dL Total Bilirubin (0.2-1.3) mg/dL 09/28/16 Range/Units 07:26 WBC (3.8-10.6) k/uL MCHC (31.0-37.0) g/dL RDW (11.5-15.5) % Neutrophils # (1.3-7.7) k/uL PT (9.0-12.0) sec Sodium (137-145) mmol/L Carbon Dioxide (22-30) mmol/L BUN (9-20) mg/dL Creatinine (0.66-1.25) mg/dL Glucose (74-99) mg/dL POC Glucose (mg/dL) 136 H (75-99) mg/dL Total Bilirubin (0.2-1.3) mg/dL Microbiology - Last 24 Hours (Table) 09/20/16 17:30 Gram Stain - Final Heel - Right Wound Culture - Final Methicillin resist S. aureus Enterobacter hormaechei Radhika albicans Enterococcus faecalis VRE Assessment and Plan (1) Acute kidney injury Status: Acute (2) Cellulitis of right leg Status: Acute (3) Chronic a-fib Status: Chronic (4) Congestive heart failure Status: Acute (5) Generalized weakness Status: Acute (6) Pulmonary HTN Status: Acute (7) Sundowning Status: Acute (8) Acute on chronic kidney failure Status: Acute (9) Nutrition deficiency due to insufficient food Status: Resolved (10) Malnutrition of moderate degree Status: Acute Plan: Continue IV antibiotic treatment. Otherwise, discussion with her agitation/disarticulation is necessary at this time. Appreciate infectious disease and vascular surgery consultation. Renal failure is improving. Mental status is also significant improvement since last week. Check CBC and CMP in a.m. per Otherwise, ECF placement.
[2016-09-28 08:20] LABS: Anisocytosis Slight; Basophils % (A) 0 %; CH 29.6; CHCM 29.2; Eosinophils # (A) 0.3 k/uL (0-0.7); Eosinophils % (A) 2 %; HCT 46.2 % (39.0-53.0); HDW 3.08; HGB 13.3 gm/dL (13.0-17.5); Hypochromasia Marked; Luc # (Auto) 0.19; Luc % (Auto) 1; Lymphocytes # (A) 1.3 k/uL (1.0-4.8); Lymphocytes % (A) 10 %; MCH 29.2 pg (25.0-35.0); MCHC 28.7 g/dL (31.0-37.0); MCV 101.8 fL (80.0-100.0); Macrocytosis Moderate; Monocytes # (A) 0.7 k/uL (0-1.0); Monocytes % (A) 5 %; Neutrophils # (A) 10.7 k/uL (1.3-7.7); Neutrophils % (A) 81 %; RBC 4.54 m/uL (4.30-5.90); RDW 16.9 % (11.5-15.5); WBC 13.1 k/uL (3.8-10.6); WBC (Perox) 13.18
[2016-09-28 08:21] LABS: Prothrombin Time 19.7 sec (9.0-12.0)
[2016-09-28] MEDS: DILTIAZEM ORAL 60 MG TAB PO SCH ×3 (08:21→21:22)
[2016-09-28] MEDS: INSULIN LISPRO (humaLOG) 300 UNIT/3 ML VIAL SQ SCH ×4 (08:21→23:22)
[2016-09-28] MEDS: CYANOCOBALAMIN 500 MCG TAB PO SCH (08:21)
[2016-09-28] MEDS: DAPTOmycin 500 MG in SODIUM CHLORIDE 0.9% 50 ML IV SCH (08:22)
[2016-09-28] MEDS: ASPIRIN 81 MG CHEW PO SCH (08:22)
[2016-09-28] MEDS: FENOFIBRATE 160 MG TAB PO SCH (08:22)
[2016-09-28] MEDS: ALLOPURINOL 100 MG TAB PO SCH (08:22)
[2016-09-28] MEDS: THIAMINE 100 MG TAB PO SCH ×2 (08:22→21:22)
[2016-09-28] MEDS: NIACIN TR 500 MG CAPSULE.ER PO SCH (08:22)
[2016-09-28] MEDS: predniSONE 10 MG TAB PO SCH (08:22)
[2016-09-28] MEDS: METOPROLOL TARTRATE 50 MG TAB PO SCH ×3 (08:22→21:22)
[2016-09-28] MEDS: DEXTROSE 5% IN WATER 1,000 ML IV SCH ×8 (08:24→21:22)
[2016-09-28 08:56] LABS: Calcium 8.5 mg/dL (8.4-10.2); Potassium 4.5 mmol/L (3.5-5.1); Total Bilirubin 1.2 mg/dL (0.2-1.3); Total Protein 7.1 g/dL (6.3-8.2)
--- NOTE | 2016-09-28 10:01 | P.PN ---
Subjective Patient is seen in follow-up for acute kidney injury secondary to ATN and possible AIN. Renal function is stable with creatinine at 1.74 today. However sodium level is up to 155 this morning. Patient is not a very reliable historian. He is nonoliguric. No vomiting or diarrhea. Currently maintained on prednisone and the dose was decreased to 30 mg daily on September 26. Vital signs are stable. General: The patient appeared well nourished and normally developed. HEENT: Head exam is unremarkable. Neck is without jugular venous distension. LUNGS: Lungs are clear to auscultation and percussion. Breath sounds decreased. HEART: Rate and Rhythm are regular. First and second heart sounds normal. No murmurs, rubs or gallops. ABDOMEN: Abdominal exam reveals normal bowel sounds. Non-tender and non- distended. No evidence of peritonitis. EXTREMITITES: No clubbing, cyanosis, or edema. Chronic changes noted. No obvious drainage. Objective - Vital Signs Vital signs: Vital Signs Temp 97.5 F L 09/28/16 07:00 Pulse 110 H 09/28/16 07:00 Resp 18 09/28/16 07:00 BP 143/89 09/28/16 07:00 Pulse Ox 92 L 09/28/16 07:00 Intake & Output 09/27/16 09/28/16 09/28/16 18:59 06:59 18:59 Intake Total 240 Output Total 650 1650 Balance -650 -1410 Weight 125 kg Intake: Oral 240 Output: Urine 650 1650 Other: Voiding Method Indwelling Catheter Indwelling Catheter # Bowel Movements 1 1 - Labs CBC & Chem 7: 09/28/16 07:36 09/28/16 07:36 Labs: Abnormal Lab Results - Last 24 Hours (Table) 09/27/16 09/27/16 09/27/16 Range/Units 12:00 16:56 20:51 WBC (3.8-10.6) k/uL MCV (80.0-100.0) fL MCHC (31.0-37.0) g/dL RDW (11.5-15.5) % Plt Count (150-450) k/uL Neutrophils # (1.3-7.7) k/uL PT (9.0-12.0) sec Sodium (137-145) mmol/L Carbon Dioxide (22-30) mmol/L BUN (9-20) mg/dL Creatinine (0.66-1.25) mg/dL Glucose (74-99) mg/dL POC Glucose (mg/dL) 228 H 224 H 315 H (75-99) mg/dL 09/28/16 09/28/16 09/28/16 Range/Units 07:26 07:36 07:36 WBC 13.1 H (3.8-10.6) k/uL MCV 101.8 H (80.0-100.0) fL MCHC 28.7 L (31.0-37.0) g/dL RDW 16.9 H (11.5-15.5) % Plt Count 469 H (150-450) k/uL Neutrophils # 10.7 H (1.3-7.7) k/uL PT 19.7 H (9.0-12.0) sec Sodium (137-145) mmol/L Carbon Dioxide (22-30) mmol/L BUN (9-20) mg/dL Creatinine (0.66-1.25) mg/dL Glucose (74-99) mg/dL POC Glucose (mg/dL) 136 H (75-99) mg/dL 09/28/16 Range/Units 07:36 WBC (3.8-10.6) k/uL MCV (80.0-100.0) fL MCHC (31.0-37.0) g/dL RDW (11.5-15.5) % Plt Count (150-450) k/uL Neutrophils # (1.3-7.7) k/uL PT (9.0-12.0) sec Sodium 155 H (137-145) mmol/L Carbon Dioxide 39 H (22-30) mmol/L BUN 56 H (9-20) mg/dL Creatinine 1.74 H (0.66-1.25) mg/dL Glucose 143 H (74-99) mg/dL POC Glucose (mg/dL) (75-99) mg/dL Microbiology - Last 24 Hours (Table) 09/20/16 17:30 Gram Stain - Final Heel - Right Wound Culture - Final Methicillin resist S. aureus Enterobacter hormaechei Radhika albicans Enterococcus faecalis VRE Assessment and Plan Plan: Assessment: #1. Nonoliguric acute kidney injury secondary to ATN with additional possible AIN. Currently maintained on prednisone 30 mg daily (dose decreased on September 26) . Renal function stable. Creatinine 1.74 today. #2. Hypernatremia secondary to lack of oral water intake. #3. Diabetic foot ulcer maintained on antibiotics. Plan: Increase D5W to be run at 150 mL an hour. Encourage oral intake including water intake. Continue prednisone 30 mg once daily for now. Will taper the dose further in the next 2-3 days. Avoid nephrotoxic agents and hypotensive episodes. Repeat electrolytes in the morning. Check sodium level at 6 PM today.
[2016-09-28 12:14] LABS: Glucose,Whole Blood 227 mg/dL (75-99)
[2016-09-28] MEDS: WARFARIN 1 MG TAB PO SCH (16:58)
[2016-09-28 17:07] LABS: Glucose,Whole Blood 249 mg/dL (75-99)
[2016-09-28] MEDS: MICAFUNGIN 100 MG in SODIUM CHLORIDE 0.9% 100 ML IVPB SCH (18:48)
[2016-09-28] MEDS: FINASTERIDE 5 MG TAB PO SCH (21:21)
[2016-09-28] MEDS: ERTAPENEM 1 GM in SODIUM CHLORIDE 0.9% 50 ML IVPB SCH (21:21)
[2016-09-28] MEDS: COLLAGENASE 250 UNIT/GM OINTMENT 30 GM TUBE TOPICAL SCH (21:21)
[2016-09-28 21:58] LABS: Glucose,Whole Blood 260 mg/dL (75-99)
--- NOTE | 2016-09-28 22:45 | P.PN ---
Subjective Principal diagnosis: Right diabetic foot ulcer 61-year-old male who has multiple medical troubles that include diabetes noticed type II poorly controlled, coronary artery disease, congestive heart failure, COPD with CO2 retention and respiratory failure. In the recent past as had difficulties with a nonhealing diabetic foot ulcer that has been followed by the vascular surgeon. Despite local care and have been worsening. He was hospitalized last month with sepsis. He also had atrial fibrillation with RVR and respiratory failure that required many days of BiPAP therapy. Eventually had some improvement and was sent to rehab facility. Apparently within several days he had worsening of his status increasing edema and developed acute renal failure. He is doing poorly at this point in time. His mental status is very poor, similar to when he was having respiratory failure. He's been seen by neurology in the past and thought to be metabolic in nature. He's had a significant right diabetic foot ulceration that evaluation revealed evidence of osteomyelitis. Has been seen by Dr. Delgado, an attempt was for a surgical incision and drainage of the site. However he was so ill anesthesia would not give him anesthesia. Consequently had a incision and drainage the bedside was performed. Case discussed with vascular surgery. Hopes is several days of antibiotic therapy will allow him to improve such that potentially he become a surgical candidate. With hemodialysis and antibiotic therapy he is now had improvement in his mentation does respond to his name. His non-conversational though. Still has a disconcerting intermittent Lasix. Objective - Vital Signs Vital signs: Vital Signs Temp 98.7 F 09/28/16 14:50 Pulse 97 09/28/16 16:00 Resp 20 09/28/16 16:00 BP 145/112 09/28/16 14:50 Pulse Ox 92 L 09/28/16 14:50 Intake & Output 09/28/16 09/28/16 09/29/16 06:59 18:59 06:59 Intake Total 240 1200 Output Total 1650 1500 Balance -1410 -300 Intake: Intake, IV Titration 1200 Amount Dextrose 5% in Water 1, 1200 000 ml @ 150 mls/hr IV . Q6H40M [facility] Rx#:[id number] Oral 240 Output: Urine 1650 400 Stool 1100 Other: Voiding Method Indwelling Catheter Indwelling Catheter # Bowel Movements 1 1 - Exam 61 year-old male who suffers from obesity. He seems comfortable but does not interact well with the observer. Despite stimulation he does not talk and his only very brief eye opening. At one time during the exam he appears to be dreaming and is laughing out loud a bit HEENT: Anicteric conjunctiva are pink and moist nasal mucosa grossly intact without significant lesions, there is no thrush. Dentition is warm for age. Neck: The neck is supple without significant lymphadenopathy or thyromegaly. Lungs: Symmetrical air entry is noted with evidence of expiratory wheezes that are scattered. No julian bronchial sounds were noted. No egophony or dullness. Heart: Irregular with an audible S1 and S2, no S3 soft S4, no new murmur click or rub. Abdomen: Obese, Positive bowel sounds soft and nontender without palpable masses or organomegaly. There was no guarding or rebound. Evidence of the prior abdominal surgeries noted. At the most superior aspect of the surgical incision is evidence of some hyper-granulation tissue. At the base of the hyperventilation tissue is exposed mesh. Extremities: There is bilateral lower extremity edema. There some erythema to both lower extremities. Much more prominent on the right lower extremity from the knee distally. There is evidence of the extensive ulceration to the right heel status post incision and drainage from the vascular surgeon. The grossly purulent material is now resolved. However extensive ulceration is still present. There is evidence of the significant ulceration and there is grossly purulent material. Incision and drainage at the bedside per the surgeon today. Neuro: The patient is encephalopathic. Knows his name is Eduardo. Not conversational but awake - Labs CBC & Chem 7: 09/28/16 07:36 09/28/16 18:45 Labs: Abnormal Lab Results - Last 24 Hours (Table) 09/28/16 09/28/16 09/28/16 Range/Units 07:26 07:36 07:36 WBC 13.1 H (3.8-10.6) k/uL MCV 101.8 H (80.0-100.0) fL MCHC 28.7 L (31.0-37.0) g/dL RDW 16.9 H (11.5-15.5) % Plt Count 469 H (150-450) k/uL Neutrophils # 10.7 H (1.3-7.7) k/uL PT 19.7 H (9.0-12.0) sec Sodium (137-145) mmol/L Carbon Dioxide (22-30) mmol/L BUN (9-20) mg/dL Creatinine (0.66-1.25) mg/dL Glucose (74-99) mg/dL POC Glucose (mg/dL) 136 H (75-99) mg/dL 09/28/16 09/28/16 09/28/16 Range/Units 07:36 12:12 16:49 WBC (3.8-10.6) k/uL MCV (80.0-100.0) fL MCHC (31.0-37.0) g/dL RDW (11.5-15.5) % Plt Count (150-450) k/uL Neutrophils # (1.3-7.7) k/uL PT (9.0-12.0) sec Sodium 155 H (137-145) mmol/L Carbon Dioxide 39 H (22-30) mmol/L BUN 56 H (9-20) mg/dL Creatinine 1.74 H (0.66-1.25) mg/dL Glucose 143 H (74-99) mg/dL POC Glucose (mg/dL) 227 H 249 H (75-99) mg/dL 09/28/16 09/28/16 Range/Units 18:45 21:51 WBC (3.8-10.6) k/uL MCV (80.0-100.0) fL MCHC (31.0-37.0) g/dL RDW (11.5-15.5) % Plt Count (150-450) k/uL Neutrophils # (1.3-7.7) k/uL PT (9.0-12.0) sec Sodium 150 H (137-145) mmol/L Carbon Dioxide (22-30) mmol/L BUN (9-20) mg/dL Creatinine (0.66-1.25) mg/dL Glucose (74-99) mg/dL POC Glucose (mg/dL) 260 H (75-99) mg/dL Laboratory Results WBC 13.1 k/uL (3.8-10.6) H 09/28/16 07:36 RBC 4.54 m/uL (4.30-5.90) 09/28/16 07:36 Hgb 13.3 gm/dL (13.0-17.5) 09/28/16 07:36 Hct 46.2 % (39.0-53.0) 09/28/16 07:36 MCV 101.8 fL (80.0-100.0) H 09/28/16 07:36 MCH 29.2 pg (25.0-35.0) 09/28/16 07:36 MCHC 28.7 g/dL (31.0-37.0) L 09/28/16 07:36 RDW 16.9 % (11.5-15.5) H 09/28/16 07:36 Plt Count 469 k/uL (150-450) H 09/28/16 07:36 Neutrophils % 81 % 09/28/16 07:36 Neutrophils % (Manual) 74.0 % 09/19/16 05:27 Lymphocytes % 10 % 09/28/16 07:36 Lymphocytes % (Manual) 12.0 % 09/19/16 05:27 Monocytes % 5 % 09/28/16 07:36 Monocytes % (Manual) 9.0 % 09/19/16 05:27 Eosinophils % 2 % 09/28/16 07:36 Eosinophils % (Manual) 5.0 % 09/19/16 05:27 Basophils % 0 % 09/28/16 07:36 Neutrophils # 10.7 k/uL (1.3-7.7) H 09/28/16 07:36 Neutrophils # (Manual) 6.7 k/uL (1.3-7.7) 09/19/16 05:27 Lymphocytes # 1.3 k/uL (1.0-4.8) 09/28/16 07:36 Lymphocytes # (Manual) 1.1 k/uL (1.0-4.8) 09/19/16 05:27 Monocytes # 0.7 k/uL (0-1.0) 09/28/16 07:36 Monocytes # (Manual) 0.8 k/uL (0-1.0) 09/19/16 05:27 Eosinophils # 0.3 k/uL (0-0.7) 09/28/16 07:36 Eosinophils # (Manual) 0.5 k/uL (0-0.7) 09/19/16 05:27 Basophils # 0.0 k/uL (0-0.2) 09/28/16 07:36 Nucleated RBCs 0 /100 WBC (0-0) 09/19/16 05:27 Manual Slide Review Performed 09/18/16 05:27 Polychromasia Present 09/19/16 05:27 Hypochromasia Marked 09/28/16 07:36 Poikilocytosis Slight 09/21/16 06:19 Anisocytosis Slight 09/28/16 07:36 Macrocytosis Moderate 09/28/16 07:36 PT 19.7 sec (9.0-12.0) H 09/28/16 07:36 INR 2.0 (<1.1) 09/28/16 07:36 APTT 56.9 sec (22.0-30.0) H 09/07/16 17:56 Sample Site rrad 09/18/16 10:22 ABG pH 7.28 (7.35-7.45) L 09/18/16 10:22 ABG pCO2 58 mmHg (35-45) H 09/18/16 10:22 ABG pO2 65 mmHg (83-108) L 09/18/16 10:22 ABG HCO3 26 mmol/L (21-25) H 09/18/16 10:22 ABG Total CO2 28 mmol/L (19-24) H 09/18/16 10:22 ABG O2 Saturation 89.0 % (94-97) L 09/18/16 10:22 ABG Base Excess 0.3 mmol/L 09/18/16 10:22 FiO2 36 % 09/18/16 10:22 Sodium 150 mmol/L (137-145) H 09/28/16 18:45 Potassium 4.5 mmol/L (3.5-5.1) 09/28/16 07:36 Chloride 106 mmol/L (98-107) 09/28/16 07:36 Carbon Dioxide 39 mmol/L (22-30) H 09/28/16 07:36 Anion Gap 10 mmol/L 09/28/16 07:36 BUN 56 mg/dL (9-20) H 09/28/16 07:36 Creatinine 1.74 mg/dL (0.66-1.25) H 09/28/16 07:36 Est GFR (MDRD) Af Amer 49 (>60 ml/min/1.73 sqM) 09/28/16 07:36 Est GFR (MDRD) Non-Af 40 (>60 ml/min/1.73 sqM) 09/28/16 07:36 Glucose 143 mg/dL (74-99) H 09/28/16 07:36 POC Glucose (mg/dL) 260 mg/dL (75-99) H 09/28/16 21:51 POC Glu Utilization Specialist ID Elizabeth Cedillo 09/28/16 21:51 Plasma Lactic Acid Cristiano 1.9 mmol/L (0.7-2.0) 09/28/16 18:45 Calcium 8.5 mg/dL (8.4-10.2) 09/28/16 07:36 Phosphorus 2.7 mg/dL (2.5-4.5) 09/27/16 08:01 Magnesium 1.9 mg/dL (1.6-2.3) 09/08/16 05:46 Total Bilirubin 1.2 mg/dL (0.2-1.3) 09/28/16 07:36 AST 34 U/L (17-59) 09/28/16 07:36 ALT 28 U/L (21-72) 09/28/16 07:36 Alkaline Phosphatase 86 U/L (38-126) 09/28/16 07:36 Ammonia 35 umol/L (<30) H 09/07/16 17:56 Total Creatine Kinase 23 U/L (55-170) L 09/08/16 05:46 CK-MB (CK-2) 2.3 ng/mL (0.0-2.4) 09/08/16 05:46 CK-MB (CK-2) Rel Index 10.0 09/08/16 05:46 Troponin I 0.022 ng/mL (0.000-0.034) 09/08/16 05:46 Total Protein 7.1 g/dL (6.3-8.2) 09/28/16 07:36 Albumin 3.5 g/dL (3.5-5.0) 09/28/16 07:36 Urine Color Yellow 09/07/16 20:45 Urine Appearance Cloudy (Clear) 09/07/16 20:45 Urine pH 6.0 (5.0-8.0) 09/07/16 20:45 Ur Specific [place] 1.015 (1.001-1.035) 09/07/16 20:45 Urine Protein 3+ (Negative) H 09/07/16 20:45 Urine Glucose (UA) Negative (Negative) 09/07/16 20:45 Urine Ketones Negative (Negative) 09/07/16 20:45 Urine Blood Moderate (Negative) H 09/07/16 20:45 Urine Nitrite Negative (Negative) 09/07/16 20:45 Urine Bilirubin Negative (Negative) 09/07/16 20:45 Urine Urobilinogen <2.0 mg/dL (<2.0) 09/07/16 20:45 Ur Leukocyte Esterase Large (Negative) H 09/07/16 20:45 Urine RBC 63 /hpf (0-5) H 09/07/16 20:45 Urine WBC 90 /hpf (0-5) H 09/07/16 20:45 Urine WBC Clumps Many /hpf (None) H 09/07/16 20:45 Hyaline Casts 3 /lpf (0-2) H 09/07/16 20:45 Urine Mucus Rare /hpf (None) H 09/07/16 20:45 Urine Eosinophils 0 % 09/09/16 00:45 LYNSEY Screen NEGATIVE (NEGATIVE) 09/10/16 06:38 c-ANCA <1:20 Titer (<1:20) 09/10/16 06:38 p-ANCA <1:20 Titer (<1:20) 09/10/16 06:38 Double Strand DNA Ab NEGATIVE (NEGATIVE) 09/10/16 06:38 Anti-DNA Ab Interp <1.0 IU/mL 09/10/16 06:38 Complement C3 132 mg/dL (88-165) 09/10/16 06:38 Complement C4 38 mg/dL (14-44) 09/10/16 06:38 Hep Bs Antigen Negative 09/10/16 06:38 Hep Bs Antibody Negative (Negative) 09/09/16 06:18 Hep B Core Total Ab Non-Reactive (Non-Reactive) 09/08/16 05:46 Hep C IgG Ab Negative (Negative) 09/10/16 06:38 Microbiology 09/20/16 17:30 Heel - Right Gram Stain - Final 09/20/16 17:30 Heel - Right Wound Culture - Final Methicillin resist S. aureus Enterobacter hormaechei Radhika albicans Enterococcus faecalis VRE 09/16/16 11:42 Blood Blood Culture - Final No Growth after 144 hours 09/07/16 17:56 Blood Blood Culture - Final No Growth after 144 hours 09/08/16 16:45 Urine,Catheterized Urine Culture - Final Radhika albicans Assessment and Plan (1) Acute on chronic kidney failure Status: Acute (2) Diabetic ulcer of foot associated with diabetes mellitus due to underlying condition, with necrosis of bone Narrative/Plan: 61-year-old male who has many medical troubles includes diabetes mellitus type 2 uncontrolled with multiple complications including osteitis to heal. With his chronic renal insufficiency that has become acute renal failure requiring hemodialysis as causes status to worsen even further. The heel ulceration has become more infected with more tissue necrosis. Vascular surgery has evaluated. Plans today for debridement concern that there will be more extensive infection and may need extensive debridement and possible amputation. However anesthesia would not give him significant amounts of anesthesia and only a bedside procedure may be performed. Antibiotic therapy will be utilized based on the prior cultures and cefepime, daptomycin, and micafungin will be utilized at the moment. As noted during his last stay his prognosis remains very poor. Patient is appropriate for DO NOT RESUSCITATE status and fortunately the family has finally agreed. However aggressive therapy is still continuing per their request. Fortunately his respiratory status is slightly better possibly due to the hemodialysis and improvement of his acid base status His mental status is poor but improving. Appears to be from improving infection and is metabolic status with dialysis. remains hopeful but will consider hospice in the future As far as the heel there is evidence of pathogen now resistant to the cefepime. This is transitioned to ertapenem. Ulcerations with little change.. Continue local wound care. Vascular surgery is working out a plan that is acceptable to the family whether it be disarticulation of the ankle or below the knee amputation. Status: Acute (3) Smoking Status: Acute (4) Morbid obesity Status: Acute
[2016-09-29] MEDS: DEXTROSE 5% IN WATER 1,000 ML IV SCH ×3 (05:17→19:51)
[2016-09-29 07:22] LABS: Glucose,Whole Blood 176 mg/dL (75-99)
[2016-09-29] MEDS: DAPTOmycin 500 MG in SODIUM CHLORIDE 0.9% 50 ML IV SCH (07:42)
[2016-09-29] MEDS: ALLOPURINOL 100 MG TAB PO SCH (07:42)
[2016-09-29] MEDS: ASPIRIN 81 MG CHEW PO SCH (07:43)
[2016-09-29] MEDS: INSULIN LISPRO (humaLOG) 300 UNIT/3 ML VIAL SQ SCH ×4 (07:43→21:45)
[2016-09-29] MEDS: NIACIN TR 500 MG CAPSULE.ER PO SCH (07:46)
[2016-09-29] MEDS: METOPROLOL TARTRATE 50 MG TAB PO SCH ×3 (07:46→21:44)
[2016-09-29] MEDS: DILTIAZEM ORAL 60 MG TAB PO SCH ×3 (07:46→21:45)
[2016-09-29] MEDS: FENOFIBRATE 160 MG TAB PO SCH (07:47)
[2016-09-29] MEDS: predniSONE 10 MG TAB PO SCH (07:47)
[2016-09-29] MEDS: ACETAMINOPHEN TAB 325 MG TAB PO PRN (07:52)
--- NOTE | 2016-09-29 08:05 | P.PN ---
Subjective Principal diagnosis: Toxic encephalopathy. This is a continue present 61-year-old white male essentially admitted for altered mental status found have an acute on chronic renal failure. The patient has been getting dialysis however he's becoming more hypernatremic. The patient also has significant asthma Lantus and has been treated with appropriate antibiotics including daptomycin. There is still an outstanding decision to be made as far as agitation of the extremity that is causing significant issue as far as infection. Otherwise significantly confused still today. He states his 1996 and the current president is President Bullard. Objective - Vital Signs Vital signs: Vital Signs Temp 97.0 F L 09/29/16 07:00 Pulse 90 09/29/16 07:00 Resp 20 09/29/16 07:00 BP 126/77 09/29/16 07:00 Pulse Ox 91 L 09/29/16 07:00 Intake & Output 09/28/16 09/29/16 09/29/16 18:59 06:59 18:59 Intake Total 1200 220 Output Total 1500 900 Balance -300 -680 Weight 126 kg Intake: Intake, IV Titration 1200 Amount Dextrose 5% in Water 1, 1200 000 ml @ 150 mls/hr IV . Q6H40M [facility] Rx#:[id number] Oral 220 Output: Urine 400 900 Stool 1100 Other: Voiding Method Indwelling Catheter Indwelling Catheter # Bowel Movements 1 1 - Constitutional General appearance: Present: obese - EENT Eyes: Absent: abnormal pupil - Respiratory Respiratory: bilateral: CTA - Cardiovascular Rhythm: regular Heart sounds: normal: S1, S2 - Gastrointestinal General gastrointestinal: Present: soft. Absent: tenderness - Labs CBC & Chem 7: 09/28/16 07:36 09/28/16 18:45 Labs: Abnormal Lab Results - Last 24 Hours (Table) 09/28/16 09/28/16 09/28/16 Range/Units 07:36 07:36 07:36 WBC 13.1 H (3.8-10.6) k/uL MCV 101.8 H (80.0-100.0) fL MCHC 28.7 L (31.0-37.0) g/dL RDW 16.9 H (11.5-15.5) % Plt Count 469 H (150-450) k/uL Neutrophils # 10.7 H (1.3-7.7) k/uL PT 19.7 H (9.0-12.0) sec Sodium 155 H (137-145) mmol/L Carbon Dioxide 39 H (22-30) mmol/L BUN 56 H (9-20) mg/dL Creatinine 1.74 H (0.66-1.25) mg/dL Glucose 143 H (74-99) mg/dL POC Glucose (mg/dL) (75-99) mg/dL 09/28/16 09/28/16 09/28/16 Range/Units 12:12 16:49 18:45 WBC (3.8-10.6) k/uL MCV (80.0-100.0) fL MCHC (31.0-37.0) g/dL RDW (11.5-15.5) % Plt Count (150-450) k/uL Neutrophils # (1.3-7.7) k/uL PT (9.0-12.0) sec Sodium 150 H (137-145) mmol/L Carbon Dioxide (22-30) mmol/L BUN (9-20) mg/dL Creatinine (0.66-1.25) mg/dL Glucose (74-99) mg/dL POC Glucose (mg/dL) 227 H 249 H (75-99) mg/dL 09/28/16 09/29/16 Range/Units 21:51 07:05 WBC (3.8-10.6) k/uL MCV (80.0-100.0) fL MCHC (31.0-37.0) g/dL RDW (11.5-15.5) % Plt Count (150-450) k/uL Neutrophils # (1.3-7.7) k/uL PT (9.0-12.0) sec Sodium (137-145) mmol/L Carbon Dioxide (22-30) mmol/L BUN (9-20) mg/dL Creatinine (0.66-1.25) mg/dL Glucose (74-99) mg/dL POC Glucose (mg/dL) 260 H 176 H (75-99) mg/dL Assessment and Plan (1) Acute kidney injury Status: Acute (2) Cellulitis of right leg Status: Acute (3) Chronic a-fib Status: Chronic (4) Congestive heart failure Status: Acute (5) Generalized weakness Status: Acute (6) Pulmonary HTN Status: Acute (7) Sundowning Status: Acute (8) Acute on chronic kidney failure Status: Acute (9) Nutrition deficiency due to insufficient food Status: Resolved (10) Malnutrition of moderate degree Status: Acute (11) Hypernatremia Status: Acute Plan: Continued confusion. Await decision for possible". Follow sodium closely. Check CMP/CBC in a.m. Time with Patient: Greater than 30
[2016-09-29 08:17] LABS: Anisocytosis Slight; CH 29.8; CHCM 29.4; HCT 45.4 % (39.0-53.0); HDW 3.08; HGB 13.4 gm/dL (13.0-17.5); Hypochromasia Marked; MCH 30.1 pg (25.0-35.0); MCHC 29.5 g/dL (31.0-37.0); Macrocytosis Moderate; Mean Platelet Volume 8.1; RBC 4.45 m/uL (4.30-5.90); RDW 16.9 % (11.5-15.5); WBC 12.9 k/uL (3.8-10.6)
[2016-09-29 08:21] LABS: Calcium 8.5 mg/dL (8.4-10.2); Potassium 5.2 mmol/L (3.5-5.1); Total Bilirubin 1.3 mg/dL (0.2-1.3)
[2016-09-29] MEDS: THIAMINE 100 MG TAB PO SCH ×2 (10:23→21:45)
--- NOTE | 2016-09-29 11:14 | P.PN ---
Subjective Patient is seen in follow-up for acute kidney injury secondary to ATN and possible AIN. Renal function is improved with creatinine at 1.57 today. Sodium level is also down to 148. Patient is not a very reliable historian. He is nonoliguric. No vomiting or diarrhea. Currently maintained on prednisone and the dose was decreased to 30 mg daily on September 26. His oral intake is good but he is only able to drink thickened liquids. Vital signs are stable. General: The patient appeared well nourished and normally developed. HEENT: Head exam is unremarkable. Neck is without jugular venous distension. LUNGS: Lungs are clear to auscultation and percussion. Breath sounds decreased. HEART: Rate and Rhythm are regular. First and second heart sounds normal. No murmurs, rubs or gallops. ABDOMEN: Abdominal exam reveals normal bowel sounds. Non-tender and non- distended. No evidence of peritonitis. EXTREMITITES: No clubbing, cyanosis, or edema. Chronic changes noted. No obvious drainage. Objective - Vital Signs Vital signs: Vital Signs Temp 97.0 F L 09/29/16 07:00 Pulse 90 09/29/16 08:00 Resp 20 09/29/16 08:00 BP 126/77 09/29/16 07:00 Pulse Ox 91 L 09/29/16 07:00 Intake & Output 09/28/16 09/29/16 09/29/16 18:59 06:59 18:59 Intake Total 1200 220 100 Output Total 9165 292 2248 Balance -300 -680 -2700 Weight 126 kg 126 kg Intake: Intake, IV Titration 1200 Amount Dextrose 5% in Water 1, 1200 000 ml @ 150 mls/hr IV . Q6H40M [facility] Rx#:[id number] Oral 220 100 Output: Urine 400 900 600 Stool 1100 2200 Other: Voiding Method Indwelling Catheter Indwelling Catheter Indwelling Catheter # Voids 0 # Bowel Movements 1 1 - Labs CBC & Chem 7: 09/29/16 07:54 09/29/16 07:54 Labs: Abnormal Lab Results - Last 24 Hours (Table) 09/28/16 09/28/16 09/28/16 Range/Units 12:12 16:49 18:45 WBC (3.8-10.6) k/uL MCV (80.0-100.0) fL MCHC (31.0-37.0) g/dL RDW (11.5-15.5) % Plt Count (150-450) k/uL Sodium 150 H (137-145) mmol/L Potassium (3.5-5.1) mmol/L Carbon Dioxide (22-30) mmol/L BUN (9-20) mg/dL Creatinine (0.66-1.25) mg/dL Glucose (74-99) mg/dL POC Glucose (mg/dL) 227 H 249 H (75-99) mg/dL 09/28/16 09/29/16 09/29/16 Range/Units 21:51 07:05 07:54 WBC 12.9 H (3.8-10.6) k/uL MCV 102.0 H (80.0-100.0) fL MCHC 29.5 L (31.0-37.0) g/dL RDW 16.9 H (11.5-15.5) % Plt Count 484 H (150-450) k/uL Sodium (137-145) mmol/L Potassium (3.5-5.1) mmol/L Carbon Dioxide (22-30) mmol/L BUN (9-20) mg/dL Creatinine (0.66-1.25) mg/dL Glucose (74-99) mg/dL POC Glucose (mg/dL) 260 H 176 H (75-99) mg/dL 09/29/16 Range/Units 07:54 WBC (3.8-10.6) k/uL MCV (80.0-100.0) fL MCHC (31.0-37.0) g/dL RDW (11.5-15.5) % Plt Count (150-450) k/uL Sodium 148 H (137-145) mmol/L Potassium 5.2 H (3.5-5.1) mmol/L Carbon Dioxide 34 H (22-30) mmol/L BUN 54 H (9-20) mg/dL Creatinine 1.57 H (0.66-1.25) mg/dL Glucose 163 H (74-99) mg/dL POC Glucose (mg/dL) (75-99) mg/dL Assessment and Plan Plan: Assessment: #1. Nonoliguric acute kidney injury secondary to ATN with additional possible AIN. Currently maintained on prednisone 30 mg daily (dose decreased on September 26) . Renal function improved. Creatinine 1.57 today. #2. Hypernatremia secondary to lack of oral water intake. Improving. #3. Diabetic foot ulcer maintained on antibiotics. Plan: Continue D5W to be run at 150 mL an hour. Encourage oral intake including water intake. Continue prednisone 30 mg once daily for now. Will taper the dose further starting tomorrow. Avoid nephrotoxic agents and hypotensive episodes. Repeat electrolytes in the morning.
[2016-09-29] MEDS: CYANOCOBALAMIN 500 MCG TAB PO SCH (12:24)
[2016-09-29 12:28] LABS: Glucose,Whole Blood 229 mg/dL (75-99)
[2016-09-29] MEDS: WARFARIN 1 MG TAB PO SCH (17:22)
[2016-09-29 17:25] LABS: Glucose,Whole Blood 236 mg/dL (75-99)
[2016-09-29] MEDS: MICAFUNGIN 100 MG in SODIUM CHLORIDE 0.9% 100 ML IVPB SCH (19:50)
--- NOTE | 2016-09-29 20:51 | P.PN ---
Subjective Principal diagnosis: Right diabetic foot ulcer 61-year-old male who has multiple medical troubles that include diabetes noticed type II poorly controlled, coronary artery disease, congestive heart failure, COPD with CO2 retention and respiratory failure. In the recent past as had difficulties with a nonhealing diabetic foot ulcer that has been followed by the vascular surgeon. Despite local care and have been worsening. He was hospitalized last month with sepsis. He also had atrial fibrillation with RVR and respiratory failure that required many days of BiPAP therapy. Eventually had some improvement and was sent to rehab facility. Apparently within several days he had worsening of his status increasing edema and developed acute renal failure. He is doing poorly at this point in time. His mental status is very poor, similar to when he was having respiratory failure. He's been seen by neurology in the past and thought to be metabolic in nature. He's had a significant right diabetic foot ulceration that evaluation revealed evidence of osteomyelitis. Has been seen by Dr. Delgado, an attempt was for a surgical incision and drainage of the site. However he was so ill anesthesia would not give him anesthesia. Consequently had a incision and drainage the bedside was performed. Case discussed with vascular surgery. Hopes is several days of antibiotic therapy will allow him to improve such that potentially he become a surgical candidate. With hemodialysis and antibiotic therapy he is now had improvement in his mentation does respond to his name. His non-conversational but occasional comment is with an appropriate nature. is present today. They do not desire an aggressive surgical approach at this time. Likely will transfer to the extended care facility for antibiotic therapy, local wound care and follow-up in the wound healing Center. Objective - Vital Signs Vital signs: Vital Signs Temp 97.0 F L 09/29/16 15:00 Pulse 96 09/29/16 16:00 Resp 20 09/29/16 16:00 BP 135/85 09/29/16 15:00 Pulse Ox 92 L 09/29/16 15:00 Intake & Output 09/29/16 09/29/16 09/30/16 06:59 18:59 06:59 Intake Total 220 200 Output Total 900 5900 500 Balance -680 -5700 -500 Weight 126 kg 126 kg Intake: Oral 220 200 Output: Urine 900 1500 500 Uretheral (Harris) 500 Stool 4400 Other: Voiding Method Indwelling Catheter Indwelling Catheter # Voids 0 # Bowel Movements 1 1 - Exam 61 year-old male who suffers from obesity. He seems comfortable but does not interact well with the observer. Despite stimulation he does not talk and his only very brief eye opening. At one time during the exam he appears to be dreaming and is laughing out loud a bit HEENT: Anicteric conjunctiva are pink and moist nasal mucosa grossly intact without significant lesions, there is no thrush. Dentition is warm for age. Neck: The neck is supple without significant lymphadenopathy or thyromegaly. Lungs: Symmetrical air entry is noted with evidence of expiratory wheezes that are scattered. No julian bronchial sounds were noted. No egophony or dullness. Heart: Irregular with an audible S1 and S2, no S3 soft S4, no new murmur click or rub. Abdomen: Obese, Positive bowel sounds soft and nontender without palpable masses or organomegaly. There was no guarding or rebound. Evidence of the prior abdominal surgeries noted. At the most superior aspect of the surgical incision is evidence of some hyper-granulation tissue. At the base of the hyperventilation tissue is exposed mesh. Extremities: There is bilateral lower extremity edema. There some erythema to both lower extremities. Much more prominent on the right lower extremity from the knee distally. There is evidence of the extensive ulceration to the right heel status post incision and drainage from the vascular surgeon. The grossly purulent material is now resolved. However extensive ulceration is still present. There is evidence of the significant ulceration and there is grossly purulent material. Incision and drainage at the bedside per the surgeon today. Neuro: The patient is encephalopathic. Knows his name is Eduardo. Not conversational but awake - Labs CBC & Chem 7: 09/29/16 07:54 09/29/16 07:54 Labs: Abnormal Lab Results - Last 24 Hours (Table) 09/28/16 09/29/16 09/29/16 Range/Units 21:51 07:05 07:54 WBC 12.9 H (3.8-10.6) k/uL MCV 102.0 H (80.0-100.0) fL MCHC 29.5 L (31.0-37.0) g/dL RDW 16.9 H (11.5-15.5) % Plt Count 484 H (150-450) k/uL Sodium (137-145) mmol/L Potassium (3.5-5.1) mmol/L Carbon Dioxide (22-30) mmol/L BUN (9-20) mg/dL Creatinine (0.66-1.25) mg/dL Glucose (74-99) mg/dL POC Glucose (mg/dL) 260 H 176 H (75-99) mg/dL 09/29/16 09/29/16 09/29/16 Range/Units 07:54 12:13 17:24 WBC (3.8-10.6) k/uL MCV (80.0-100.0) fL MCHC (31.0-37.0) g/dL RDW (11.5-15.5) % Plt Count (150-450) k/uL Sodium 148 H (137-145) mmol/L Potassium 5.2 H (3.5-5.1) mmol/L Carbon Dioxide 34 H (22-30) mmol/L BUN 54 H (9-20) mg/dL Creatinine 1.57 H (0.66-1.25) mg/dL Glucose 163 H (74-99) mg/dL POC Glucose (mg/dL) 229 H 236 H (75-99) mg/dL Laboratory Results WBC 12.9 k/uL (3.8-10.6) H 09/29/16 07:54 RBC 4.45 m/uL (4.30-5.90) 09/29/16 07:54 Hgb 13.4 gm/dL (13.0-17.5) 09/29/16 07:54 Hct 45.4 % (39.0-53.0) 09/29/16 07:54 MCV 102.0 fL (80.0-100.0) H 09/29/16 07:54 MCH 30.1 pg (25.0-35.0) 09/29/16 07:54 MCHC 29.5 g/dL (31.0-37.0) L 09/29/16 07:54 RDW 16.9 % (11.5-15.5) H 09/29/16 07:54 Plt Count 484 k/uL (150-450) H 09/29/16 07:54 Neutrophils % 81 % 09/28/16 07:36 Neutrophils % (Manual) 74.0 % 09/19/16 05:27 Lymphocytes % 10 % 09/28/16 07:36 Lymphocytes % (Manual) 12.0 % 09/19/16 05:27 Monocytes % 5 % 09/28/16 07:36 Monocytes % (Manual) 9.0 % 09/19/16 05:27 Eosinophils % 2 % 09/28/16 07:36 Eosinophils % (Manual) 5.0 % 09/19/16 05:27 Basophils % 0 % 09/28/16 07:36 Neutrophils # 10.7 k/uL (1.3-7.7) H 09/28/16 07:36 Neutrophils # (Manual) 6.7 k/uL (1.3-7.7) 09/19/16 05:27 Lymphocytes # 1.3 k/uL (1.0-4.8) 09/28/16 07:36 Lymphocytes # (Manual) 1.1 k/uL (1.0-4.8) 09/19/16 05:27 Monocytes # 0.7 k/uL (0-1.0) 09/28/16 07:36 Monocytes # (Manual) 0.8 k/uL (0-1.0) 09/19/16 05:27 Eosinophils # 0.3 k/uL (0-0.7) 09/28/16 07:36 Eosinophils # (Manual) 0.5 k/uL (0-0.7) 09/19/16 05:27 Basophils # 0.0 k/uL (0-0.2) 09/28/16 07:36 Nucleated RBCs 0 /100 WBC (0-0) 09/19/16 05:27 Manual Slide Review Performed 09/18/16 05:27 Polychromasia Present 09/19/16 05:27 Hypochromasia Marked 09/29/16 07:54 Poikilocytosis Slight 09/21/16 06:19 Anisocytosis Slight 09/29/16 07:54 Macrocytosis Moderate 09/29/16 07:54 PT 19.7 sec (9.0-12.0) H 09/28/16 07:36 INR 2.0 (<1.1) 09/28/16 07:36 APTT 56.9 sec (22.0-30.0) H 09/07/16 17:56 Sample Site rrad 09/18/16 10:22 ABG pH 7.28 (7.35-7.45) L 09/18/16 10:22 ABG pCO2 58 mmHg (35-45) H 09/18/16 10:22 ABG pO2 65 mmHg (83-108) L 09/18/16 10:22 ABG HCO3 26 mmol/L (21-25) H 09/18/16 10:22 ABG Total CO2 28 mmol/L (19-24) H 09/18/16 10:22 ABG O2 Saturation 89.0 % (94-97) L 09/18/16 10:22 ABG Base Excess 0.3 mmol/L 09/18/16 10:22 FiO2 36 % 09/18/16 10:22 Sodium 148 mmol/L (137-145) H 09/29/16 07:54 Potassium 5.2 mmol/L (3.5-5.1) H 09/29/16 07:54 Chloride 103 mmol/L (98-107) 09/29/16 07:54 Carbon Dioxide 34 mmol/L (22-30) H 09/29/16 07:54 Anion Gap 11 mmol/L 09/29/16 07:54 BUN 54 mg/dL (9-20) H 09/29/16 07:54 Creatinine 1.57 mg/dL (0.66-1.25) H 09/29/16 07:54 Est GFR (MDRD) Af Amer 55 (>60 ml/min/1.73 sqM) 09/29/16 07:54 Est GFR (MDRD) Non-Af 45 (>60 ml/min/1.73 sqM) 09/29/16 07:54 Glucose 163 mg/dL (74-99) H 09/29/16 07:54 POC Glucose (mg/dL) 236 mg/dL (75-99) H 09/29/16 17:24 POC Glu [employer] Tester ID 09/29/16 17:24 Plasma Lactic Acid Cristiano 1.9 mmol/L (0.7-2.0) 09/28/16 18:45 Calcium 8.5 mg/dL (8.4-10.2) 09/29/16 07:54 Phosphorus 2.7 mg/dL (2.5-4.5) 09/27/16 08:01 Magnesium 1.9 mg/dL (1.6-2.3) 09/08/16 05:46 Total Bilirubin 1.3 mg/dL (0.2-1.3) 09/29/16 07:54 AST 39 U/L (17-59) 09/29/16 07:54 ALT 36 U/L (21-72) 09/29/16 07:54 Alkaline Phosphatase 80 U/L (38-126) 09/29/16 07:54 Ammonia 35 umol/L (<30) H 09/07/16 17:56 Total Creatine Kinase 23 U/L (55-170) L 09/08/16 05:46 CK-MB (CK-2) 2.3 ng/mL (0.0-2.4) 09/08/16 05:46 CK-MB (CK-2) Rel Index 10.0 09/08/16 05:46 Troponin I 0.022 ng/mL (0.000-0.034) 09/08/16 05:46 Total Protein 7.0 g/dL (6.3-8.2) 09/29/16 07:54 Albumin 3.5 g/dL (3.5-5.0) 09/29/16 07:54 Urine Color Yellow 09/07/16 20:45 Urine Appearance Cloudy (Clear) 09/07/16 20:45 Urine pH 6.0 (5.0-8.0) 09/07/16 20:45 Ur Specific [place] 1.015 (1.001-1.035) 09/07/16 20:45 Urine Protein 3+ (Negative) H 09/07/16 20:45 Urine Glucose (UA) Negative (Negative) 09/07/16 20:45 Urine Ketones Negative (Negative) 09/07/16 20:45 Urine Blood Moderate (Negative) H 09/07/16 20:45 Urine Nitrite Negative (Negative) 09/07/16 20:45 Urine Bilirubin Negative (Negative) 09/07/16 20:45 Urine Urobilinogen <2.0 mg/dL (<2.0) 09/07/16 20:45 Ur Leukocyte Esterase Large (Negative) H 09/07/16 20:45 Urine RBC 63 /hpf (0-5) H 09/07/16 20:45 Urine WBC 90 /hpf (0-5) H 09/07/16 20:45 Urine WBC Clumps Many /hpf (None) H 09/07/16 20:45 Hyaline Casts 3 /lpf (0-2) H 09/07/16 20:45 Urine Mucus Rare /hpf (None) H 09/07/16 20:45 Urine Eosinophils 0 % 09/09/16 00:45 LYNSEY Screen NEGATIVE (NEGATIVE) 09/10/16 06:38 c-ANCA <1:20 Titer (<1:20) 09/10/16 06:38 p-ANCA <1:20 Titer (<1:20) 09/10/16 06:38 Double Strand DNA Ab NEGATIVE (NEGATIVE) 09/10/16 06:38 Anti-DNA Ab Interp <1.0 IU/mL 09/10/16 06:38 Complement C3 132 mg/dL (88-165) 09/10/16 06:38 Complement C4 38 mg/dL (14-44) 09/10/16 06:38 Hep Bs Antigen Negative 09/10/16 06:38 Hep Bs Antibody Negative (Negative) 09/09/16 06:18 Hep B Core Total Ab Non-Reactive (Non-Reactive) 09/08/16 05:46 Hep C IgG Ab Negative (Negative) 09/10/16 06:38 Microbiology 09/20/16 17:30 Heel - Right Gram Stain - Final 09/20/16 17:30 Heel - Right Wound Culture - Final Methicillin resist S. aureus Enterobacter hormaechei Radhika albicans Enterococcus faecalis VRE 09/16/16 11:42 Blood Blood Culture - Final No Growth after 144 hours 09/07/16 17:56 Blood Blood Culture - Final No Growth after 144 hours 09/08/16 16:45 Urine,Catheterized Urine Culture - Final Radhika albicans Assessment and Plan (1) Acute on chronic kidney failure Status: Acute (2) Diabetic ulcer of foot associated with diabetes mellitus due to underlying condition, with necrosis of bone Narrative/Plan: 61-year-old male who has many medical troubles includes diabetes mellitus type 2 uncontrolled with multiple complications including osteitis to heal. With his chronic renal insufficiency that has become acute renal failure requiring hemodialysis as causes status to worsen even further. The heel ulceration has become more infected with more tissue necrosis. Vascular surgery has evaluated. Plans today for debridement concern that there will be more extensive infection and may need extensive debridement and possible amputation. However anesthesia would not give him significant amounts of anesthesia and only a bedside procedure may be performed. Antibiotic therapy will be utilized based on the prior cultures and cefepime, daptomycin, and micafungin will be utilized at the moment. As noted during his last stay his prognosis remains very poor. Patient is appropriate for DO NOT RESUSCITATE status and fortunately the family has finally agreed. However aggressive therapy is still continuing per their request. Fortunately his respiratory status is slightly better possibly due to the hemodialysis and improvement of his acid base status His mental status is poor but improving. Appears to be from improving infection and is metabolic status with dialysis. remains hopeful but will consider hospice in the future As far as the heel there is evidence of pathogen now resistant to the cefepime. This is transitioned to ertapenem. Ulcerations with little change.. Continue local wound care. Vascular surgery is working out a plan that is acceptable to the family whether it be disarticulation of the ankle or below the knee amputation. Appears that the patient will not have surgery at this time. We'll likely be discharged to the extended care facility follow-up and consider potential surgery at another point in time or transition to a different plan of care. Status: Acute (3) Smoking Status: Acute (4) Morbid obesity Status: Acute
[2016-09-29 20:54] LABS: Glucose,Whole Blood 314 mg/dL (75-99)
[2016-09-29] MEDS: COLLAGENASE 250 UNIT/GM OINTMENT 30 GM TUBE TOPICAL SCH (21:44)
[2016-09-29] MEDS: FINASTERIDE 5 MG TAB PO SCH (21:45)
[2016-09-29] MEDS: ERTAPENEM 1 GM in SODIUM CHLORIDE 0.9% 50 ML IVPB SCH (22:14)
[2016-09-30] MEDS: DEXTROSE 5% IN WATER 1,000 ML IV SCH ×3 (01:47→20:33)
[2016-09-30 07:25] LABS: Glucose,Whole Blood 125 mg/dL (75-99)
--- NOTE | 2016-09-30 07:50 | P.DS ---
Providers Date of admission: 09/07/16 20:36 Attending physician: Kamari Franks Consults: 09/07/16 20:37 Consult Physician Urgent Consulting Provider: Stacie Wick Consult Reason/Comments: RICHARDSON Do you want consulting provider notified?: Yes 09/07/16 20:38 Consult Physician Urgent Consulting Provider: Destiny Lopez Consult Reason/Comments: chf Do you want consulting provider notified?: Yes 09/08/16 11:30 Consult Physician Stat Consulting Provider: Konstantin Delgado Consult Reason/Comments: hemodialysis cath placement Do you want consulting provider notified?: Yes 09/15/16 10:32 Consult Physician Urgent Consulting Provider: Rafita Kaur Consult Reason/Comments: INFECTION/DELERIUM Do you want consulting provider notified?: Yes 09/15/16 18:08 Consult Physician Routine Consulting Provider: Konstantin Delgado Consult Reason/Comments: gangreen right foot Do you want consulting provider notified?: Yes, Notify in am Primary care physician: Jarek Lofton - Discharge Diagnosis(es) (1) Acute kidney injury Current Visit: Yes Status: Acute (2) Cellulitis of right leg Current Visit: Yes Status: Acute (3) Chronic a-fib Current Visit: Yes Status: Chronic (4) Congestive heart failure Current Visit: Yes Status: Acute (5) Generalized weakness Current Visit: No Status: Acute (6) Pulmonary HTN Current Visit: No Status: Acute (7) Sundowning Current Visit: Yes Status: Acute (8) Acute on chronic kidney failure Current Visit: Yes Status: Acute (9) Nutrition deficiency due to insufficient food Current Visit: Yes Status: Resolved (10) Malnutrition of moderate degree Current Visit: Yes Status: Acute (11) Hypernatremia Current Visit: Yes Status: Acute Hospital Course: This is a discharge summary 61-year-old white male essentially admitted for altered mental status. Significant renal failure is also known. He has underlying history of diabetes, which is well controlled but said significant toxic encephalopathy. He said significant hypernatremia with foot infection. He has significant diabetic foot ulcers with cellulitis for however, after significant thought, we will not undergo surgery at this time and be transitioned to continued antibiotics. The patient has been cleared for discharge from multiple consultants and [facility] The patient is fair as far as his discharge but his prognosis is somewhat poor given his overall comorbidities he will placed on prednisone for to 3 days and then weaned off. The is of confusion and disorientation. The , does understand his overall prognosis. Patient Condition at Discharge: Poor Plan - Discharge Summary New Discharge Prescriptions: New Acetaminophen Tab [Tylenol] 650 mg PO Q6HR PRN tab PRN Reason: Mild Pain Or Fever > 100.5 Ertapenem [INVanz] 1 gm IVPB HS #14 vial Menthol-Zinc Oxide Oint [Risamine Oint] 1 applic TOPICAL QID PRN dose PRN Reason: Skin Irritation predniSONE 20 mg PO DAILY #3 tab QUEtiapine [SEROquel] 25 mg PO BID PRN tab PRN Reason: Agitation QUEtiapine [SEROquel] 25 mg PO HS PRN tab PRN Reason: Agitation Continue Niacin [Niacin ER] 500 mg PO DAILY Fenofibrate Nanocrystallized [Tricor] 145 mg PO DAILY Metoprolol Tartrate [Lopressor] 100 mg PO BID Gabapentin [Neurontin] 300 mg PO BID Finasteride [Proscar] 5 mg PO HS buPROPion HCL [Wellbutrin XL] 300 mg PO DAILY Allopurinol [Zyloprim] 100 mg PO DAILY Spironolactone [Aldactone] 25 mg PO DAILY Furosemide [Lasix] 40 mg PO BID Acetaminophen Tab [Tylenol] 1,000 mg PO Q6HR PRN tab PRN Reason: FEVER >100.5 Collagenase [Santyl] 1 applic TOPICAL HS dose Cyanocobalamin [Vitamin B-12] 1,000 mcg PO DAILY@1200 tab DAPTOmycin [Cubicin] 500 mg IV Q24H #42 vial Insulin Glargine [Lantus] 25 unit SQ DAILY vial Nystatin 100,000 Unit/ml Susp [Mycostatin Oral Susp] 500,000 unit PO QID dose Pantoprazole [Protonix] 40 mg PO DAILY tab Thiamine [Vitamin B-1] 100 mg PO BID tab Warfarin [Coumadin] 1.25 mg PO DAILY@1800 tab traMADol HCl [Ultram] 50 mg PO Q8HR Diltiazem Oral [Cardizem*] 60 mg PO Q6HR Discontinued Nicotine 21Mg/24Hr Patch [Habitrol] 1 patch TRANSDERM DAILY patch Discharge Medication List Fenofibrate Nanocrystallized [Tricor] 145 mg PO DAILY 07/27/16 [History] Finasteride [Proscar] 5 mg PO HS 07/27/16 [History] Gabapentin [Neurontin] 300 mg PO BID 07/27/16 [History] Metoprolol Tartrate [Lopressor] 100 mg PO BID 07/27/16 [History] Niacin [Niacin ER] 500 mg PO DAILY 07/27/16 [History] Allopurinol [Zyloprim] 100 mg PO DAILY 08/15/16 [History] Furosemide [Lasix] 40 mg PO BID 08/15/16 [History] Spironolactone [Aldactone] 25 mg PO DAILY 08/15/16 [History] buPROPion HCL [Wellbutrin XL] 300 mg PO DAILY 08/15/16 [History] Acetaminophen Tab [Tylenol] 1,000 mg PO Q6HR PRN tab 09/01/16 [Rx] Collagenase [Santyl] 1 applic TOPICAL HS dose 09/01/16 [Rx] Cyanocobalamin [Vitamin B-12] 1,000 mcg PO DAILY@1200 tab 09/01/16 [Rx] DAPTOmycin [Cubicin] 500 mg IV Q24H #42 vial 09/01/16 [Rx] Insulin Glargine [Lantus] 25 unit SQ DAILY vial 09/01/16 [Rx] Nystatin 100,000 Unit/ml Susp [Mycostatin Oral Susp] 500,000 unit PO QID dose 09/01/16 [Rx] Pantoprazole [Protonix] 40 mg PO DAILY tab 09/01/16 [Rx] Thiamine [Vitamin B-1] 100 mg PO BID tab 09/01/16 [Rx] Warfarin [Coumadin] 1.25 mg PO DAILY@1800 tab 09/01/16 [Rx] Diltiazem Oral [Cardizem*] 60 mg PO Q6HR 09/07/16 [History] traMADol HCl [Ultram] 50 mg PO Q8HR 09/07/16 [History] Acetaminophen Tab [Tylenol] 650 mg PO Q6HR PRN tab 09/30/16 [Rx] Ertapenem [INVanz] 1 gm IVPB HS #14 vial 09/30/16 [Rx] Menthol-Zinc Oxide Oint [Risamine Oint] 1 applic TOPICAL QID PRN dose 09/30/16 [Rx] QUEtiapine [SEROquel] 25 mg PO BID PRN tab 09/30/16 [Rx] QUEtiapine [SEROquel] 25 mg PO HS PRN tab 09/30/16 [Rx] predniSONE 20 mg PO DAILY #3 tab 09/30/16 [Rx] Follow up Appointment(s)/Referral(s): Jarek Lofton DO [[facility] Care Provider[facility] Patient Instructions/Handouts: Cellulitis (DC) Activity/Diet/Wound Care/Special Instructions: Cardiac, diabetic diet Fall precautions, activity as tolerated, Change positions every 2 hours. PICC line information added to pts discharge packet paperwork. Discharge Disposition: TRANSFER TO SNF/ECF
[2016-09-30] MEDS: INSULIN LISPRO (humaLOG) 300 UNIT/3 ML VIAL SQ SCH ×4 (08:22→22:00)
[2016-09-30 08:37] LABS: Anisocytosis Slight; CH 30.1; HCT 46.4 % (39.0-53.0); HDW 3.13; HGB 13.6 gm/dL (13.0-17.5); Hypochromasia Marked; MCH 29.6 pg (25.0-35.0); MCHC 29.4 g/dL (31.0-37.0); MCV 100.9 fL (80.0-100.0); Macrocytosis Moderate; Mean Platelet Volume 7.8; RBC 4.59 m/uL (4.30-5.90); RDW 17.2 % (11.5-15.5); WBC 14.6 k/uL (3.8-10.6)
[2016-09-30 08:43] LABS: INR 2.4 (<1.1); Prothrombin Time 22.6 sec (9.0-12.0)
[2016-09-30 08:55] LABS: Calcium 8.3 mg/dL (8.4-10.2); Potassium 5.1 mmol/L (3.5-5.1); Total Bilirubin 1.3 mg/dL (0.2-1.3); Total Protein 6.7 g/dL (6.3-8.2)
[2016-09-30] MEDS: NIACIN TR 500 MG CAPSULE.ER PO SCH (09:37)
[2016-09-30] MEDS: METOPROLOL TARTRATE 50 MG TAB PO SCH ×3 (09:38→22:38)
[2016-09-30] MEDS: ALLOPURINOL 100 MG TAB PO SCH (09:38)
[2016-09-30] MEDS: THIAMINE 100 MG TAB PO SCH ×2 (09:38→20:37)
[2016-09-30] MEDS: FENOFIBRATE 160 MG TAB PO SCH (09:39)
[2016-09-30] MEDS: predniSONE 20 MG TAB PO SCH (09:39)
[2016-09-30] MEDS: ASPIRIN 81 MG CHEW PO SCH (09:39)
[2016-09-30] MEDS: DILTIAZEM ORAL 60 MG TAB PO SCH ×3 (09:39→23:00)
[2016-09-30] MEDS: DAPTOmycin 500 MG in SODIUM CHLORIDE 0.9% 50 ML IV SCH (09:39)
--- NOTE | 2016-09-30 09:42 | CDI ---
In responding to this query, please exercise your independent professional judgment. The [facility] Coding Staff and Clinical Documentation Specialists appreciate your assistance in clarifying documentation, maintaining compliance with coding guidelines, accurately documenting patients condition and capturing severity of illness. The fact that a question is asked does not imply that any particular answer is desired or expected. Communication forms are a method of clarifying documentation and are not made part of the Legal Health Record. Thank you in advance for your clarification. Last Revision, July 2016 Roman Rhoades [address] [facility] [place] [address] Documentation Clarification Form Date: 09/30/2016 9:27:00 AM From: Amanda Franklin CCS, CCDS Admit Date: 09/07/2016 8:36:00 PM Patient Name: Brandon Nunez Visit Number: [id number] Discharge Date: Dr. Kamari Franks: Per Dr. Martin's progress note on 09/19, covering hospitalist: "ASSESSMENT AND PLAN: 1. Sepsis secondary to osteomyelitis of the right foot. 2. Acute on chronic hypoxic and hypercapnic respiratory failure. 3. Acute on chronic kidney injury currently on hemodialysis. " History/Risk Factors: Recent treatment for Sepsis & osteomyelitis, discharged previous week. 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 Clinical Indicators: Presented with RICHARDSON & Cellulitis of right leg WBC/Left Shift: WBC 11.6, Neut 8.8. Blood cultures: negative x2, Urine Cx: Radhika albicans, Wound Cx: MRSA, Enterobacter hormaechei, Radhika albicans, Enterococcus faecalis VRE. Vitals signs on admission: T 96.9, P 59, R 18, BP 101/66, PO 97 3Lnc Treatment: IV fluids, IV Narcan, IV Zofran, IV Cubicin, IV Rocephin Consults: Infectious Disease, Vascular Surgery, Nephrology, Cardiology In your professional opinion, please clarify if these findings signify one of the following conditions, whether the condition is POA, and cause, if known: Sepsis, ruled out SIRS, without underlying infectious process Sepsis Severe Sepsis Septic Shock Unable to determine Other, please specify Present on Admission: Yes No Please document in your progress notes and discharge summary in order to capture severity of illness and risk of mortality. Include clinical findings that support your diagnosis. FYI: Press F11 to launch patient chart. ___x__ Place X here if this finding has no clinical significance, is not applicable or if you are not able to provide any additional documentation. Thank You. MENA
[2016-09-30 12:37] LABS: Glucose,Whole Blood 166 mg/dL (75-99)
--- NOTE | 2016-09-30 12:58 | P.PN ---
Subjective Patient is seen in follow-up for acute kidney injury secondary to ATN and possible AIN. Renal function is improved with creatinine at 1.48 today. Sodium level is also down to 143. Patient is not a very reliable historian. He is nonoliguric. No vomiting or diarrhea. Currently maintained on prednisone and the dose was decreased to 20 mg daily today. His oral intake is good but he is only able to drink thickened liquids. More alert today. Denies chest pain or shortness of breath. Vital signs are stable. General: The patient appeared well nourished and normally developed. HEENT: Head exam is unremarkable. Neck is without jugular venous distension. LUNGS: Lungs are clear to auscultation and percussion. Breath sounds decreased. HEART: Rate and Rhythm are regular. First and second heart sounds normal. No murmurs, rubs or gallops. ABDOMEN: Abdominal exam reveals normal bowel sounds. Non-tender and non- distended. No evidence of peritonitis. EXTREMITITES: No clubbing, cyanosis, or edema. Chronic changes noted. No obvious drainage. Objective - Vital Signs Vital signs: Vital Signs Temp 96.8 F L 09/30/16 07:00 Pulse 107 H 09/30/16 08:00 Resp 22 09/30/16 08:00 BP 141/88 09/30/16 07:00 Pulse Ox 93 L 09/30/16 07:00 Intake & Output 09/29/16 09/30/16 09/30/16 18:59 06:59 18:59 Intake Total 200 200 Output Total 5900 1900 2600 Balance -5700 -1700 -2600 Weight 126 kg 126 kg 126 kg Intake: Oral 200 200 Output: Urine 1500 1900 400 Uretheral (Harris) 500 Stool 4400 2200 Other: Voiding Method Indwelling Catheter Indwelling Catheter Indwelling Catheter # Voids 0 0 # Bowel Movements 1 - Labs CBC & Chem 7: 09/30/16 07:56 09/30/16 07:56 Labs: Abnormal Lab Results - Last 24 Hours (Table) 09/29/16 09/29/16 09/30/16 Range/Units 17:24 20:52 07:23 WBC (3.8-10.6) k/uL MCV (80.0-100.0) fL MCHC (31.0-37.0) g/dL RDW (11.5-15.5) % Plt Count (150-450) k/uL PT (9.0-12.0) sec Carbon Dioxide (22-30) mmol/L BUN (9-20) mg/dL Creatinine (0.66-1.25) mg/dL Glucose (74-99) mg/dL POC Glucose (mg/dL) 236 H 314 H 125 H (75-99) mg/dL Calcium (8.4-10.2) mg/dL Albumin (3.5-5.0) g/dL 09/30/16 09/30/16 09/30/16 Range/Units 07:56 07:56 07:56 WBC 14.6 H (3.8-10.6) k/uL MCV 100.9 H (80.0-100.0) fL MCHC 29.4 L (31.0-37.0) g/dL RDW 17.2 H (11.5-15.5) % Plt Count 535 H (150-450) k/uL PT 22.6 H (9.0-12.0) sec Carbon Dioxide 31 H (22-30) mmol/L BUN 48 H (9-20) mg/dL Creatinine 1.48 H (0.66-1.25) mg/dL Glucose 133 H (74-99) mg/dL POC Glucose (mg/dL) (75-99) mg/dL Calcium 8.3 L (8.4-10.2) mg/dL Albumin 3.4 L (3.5-5.0) g/dL 09/30/16 Range/Units 12:19 WBC (3.8-10.6) k/uL MCV (80.0-100.0) fL MCHC (31.0-37.0) g/dL RDW (11.5-15.5) % Plt Count (150-450) k/uL PT (9.0-12.0) sec Carbon Dioxide (22-30) mmol/L BUN (9-20) mg/dL Creatinine (0.66-1.25) mg/dL Glucose (74-99) mg/dL POC Glucose (mg/dL) 166 H (75-99) mg/dL Calcium (8.4-10.2) mg/dL Albumin (3.5-5.0) g/dL Assessment and Plan Plan: Assessment: #1. Nonoliguric acute kidney injury secondary to ATN with additional possible AIN. Currently maintained on prednisone 20 mg daily (dose decreased on September 30) . Renal function improved. Creatinine 1.48 today. #2. Hypernatremia secondary to lack of oral water intake. Improving. #3. Diabetic foot ulcer maintained on antibiotics. Plan: Continue D5W - decrease rate to 75 mL an hour. Encourage oral intake including water intake. Continue prednisone 20 mg once daily for now. Will taper the dose over the next 2 weeks. Avoid nephrotoxic agents and hypotensive episodes. Repeat electrolytes in the morning.
[2016-09-30] MEDS: CYANOCOBALAMIN 500 MCG TAB PO SCH (13:07)
[2016-09-30 14:47] VITALS: BMI 38.7
[2016-09-30 17:32] LABS: Glucose,Whole Blood 215 mg/dL (75-99)
[2016-09-30] MEDS: WARFARIN 1 MG TAB PO SCH (17:56)
[2016-09-30 20:32] LABS: Glucose,Whole Blood 307 mg/dL (75-99)
[2016-09-30] MEDS: ERTAPENEM 1 GM in SODIUM CHLORIDE 0.9% 50 ML IVPB SCH (20:33)
[2016-09-30] MEDS: FINASTERIDE 5 MG TAB PO SCH (20:37)
[2016-09-30] MEDS: COLLAGENASE 250 UNIT/GM OINTMENT 30 GM TUBE TOPICAL SCH (22:42)
[2016-10-01 06:48] LABS: INR 2.3 (<1.1); Prothrombin Time 22.4 sec (9.0-12.0)
[2016-10-01 07:26] LABS: Glucose,Whole Blood 115 mg/dL (75-99)
[2016-10-01 08:00] VITALS: BP 123/84; PULSE 99; RESP 16; TEMP 97
[2016-10-01] MEDS: predniSONE 20 MG TAB PO SCH (08:32)
[2016-10-01] MEDS: INSULIN LISPRO (humaLOG) 300 UNIT/3 ML VIAL SQ SCH ×2 (08:32→12:23)
[2016-10-01] MEDS: ALLOPURINOL 100 MG TAB PO SCH (08:32)
[2016-10-01] MEDS: FENOFIBRATE 160 MG TAB PO SCH (08:32)
[2016-10-01] MEDS: DILTIAZEM ORAL 60 MG TAB PO SCH (08:33)
[2016-10-01] MEDS: METOPROLOL TARTRATE 50 MG TAB PO SCH (08:33)
[2016-10-01] MEDS: ASPIRIN 81 MG CHEW PO SCH (08:33)
[2016-10-01] MEDS: THIAMINE 100 MG TAB PO SCH (08:33)
[2016-10-01] MEDS: NIACIN TR 500 MG CAPSULE.ER PO SCH (08:33)
[2016-10-01 11:16] LABS: Glucose,Whole Blood 171 mg/dL (75-99)
[2016-10-01] MEDS: CYANOCOBALAMIN 500 MCG TAB PO SCH (12:23)
[2016-10-01] MEDS: DEXTROSE 5% IN WATER 1,000 ML IV SCH (12:24)
== END 2016-10-01 14:02 | DRG 673 ==
LOC: EC 17:45 → 6SEL 20:36 → 4MS4W 09-22 11:14
PROVIDERS: ADMIT Family Medicine; ATTEND Family Medicine
PROC: 04HK33Z Insertion of Infusion Device into Right Femoral Artery, Percutaneous Approach (ICD-10-PCS; 2016-09-09 07:26)
PROC: 0JBQ0ZZ Excision of Right Foot Subcutaneous Tissue and Fascia, Open Approach (ICD-10-PCS; principal; 2016-09-24)
DX: N17.0 Acute kidney failure with tubular necrosis (principal); A41.9 Sepsis, unspecified organism; J96.21 Acute and chronic respiratory failure with hypoxia; G04.91 Myelitis, unspecified; I13.2 Hypertensive heart and chronic kidney disease with heart failure and with stage 5 chronic kidney disease, or end stage renal disease; G92 Toxic encephalopathy; E87.0 Hyperosmolality and hypernatremia; E44.0 Moderate protein-calorie malnutrition; I48.2 Chronic atrial fibrillation; J96.22 Acute and chronic respiratory failure with hypercapnia; B37.0 Candidal stomatitis; E87.2 Acidosis; L02.611 Cutaneous abscess of right foot; L03.115 Cellulitis of right lower limb; L03.116 Cellulitis of left lower limb; L97.412 Non-pressure chronic ulcer of right heel and midfoot with fat layer exposed; M86.9 Osteomyelitis, unspecified; N39.0 Urinary tract infection, site not specified; Z68.41 Body mass index [BMI] 40.0-44.9, adult; E11.22 Type 2 diabetes mellitus with diabetic chronic kidney disease; E11.51 Type 2 diabetes mellitus with diabetic peripheral angiopathy without gangrene; E11.621 Type 2 diabetes mellitus with foot ulcer; E11.622 Type 2 diabetes mellitus with other skin ulcer; E11.628 Type 2 diabetes mellitus with other skin complications; E11.65 Type 2 diabetes mellitus with hyperglycemia; E11.69 Type 2 diabetes mellitus with other specified complication; E66.01 Morbid (severe) obesity due to excess calories; E78.5 Hyperlipidemia, unspecified; E83.39 Other disorders of phosphorus metabolism; F17.200 Nicotine dependence, unspecified, uncomplicated; F32.9 Major depressive disorder, single episode, unspecified; F41.9 Anxiety disorder, unspecified; G47.30 Sleep apnea, unspecified; H52.202 Unspecified astigmatism, left eye; H91.90 Unspecified hearing loss, unspecified ear; I25.10 Atherosclerotic heart disease of native coronary artery without angina pectoris; I27.2 Other secondary pulmonary hypertension; I50.9 Heart failure, unspecified; I87.309 Chronic venous hypertension (idiopathic) without complications of unspecified lower extremity; J44.9 Chronic obstructive pulmonary disease, unspecified; K58.9 Irritable bowel syndrome, unspecified; N18.6 End stage renal disease; N40.0 Benign prostatic hyperplasia without lower urinary tract symptoms; T50.905A Adverse effect of unspecified drugs, medicaments and biological substances, initial encounter; Z66 Do not resuscitate; Z78.1 Physical restraint status; Z79.01 Long term (current) use of anticoagulants; Z79.4 Long term (current) use of insulin; Z79.52 Long term (current) use of systemic steroids; Z79.899 Other long term (current) drug therapy; Z80.3 Family history of malignant neoplasm of breast; Z83.3 Family history of diabetes mellitus; Z87.442 Personal history of urinary calculi; Z89.519 Acquired absence of unspecified leg below knee; Z99.2 Dependence on renal dialysis
CPT/HCPCS: 36415; 36556; 36600; 70450; 71010; 76770; 77001; 80048; 80053; 81001; 82140; 82550; 82553; 82805; 83605; 83735; 84100; 84295; 84484; 85025; 85027; 85610; 85730; 86038; 86160; 86225; 86255; 86704; 86706; 86803; 87040; 87070; 87077; 87086; 87186; 87205; 87340; 90935; 93005; 93306; 94760; 96360; 96361; 99285

== ENCOUNTER 2016-10-25 21:20 | Emergency (ER) | payer OTHER ==
[2016-10-25] MEDS ORDERED: DILTIAZEM 125 MG in SODIUM CHLORIDE 0.9% 100 ML IV ONE (21:47)
[2016-10-25] MEDS ORDERED: DILTIAZEM 5 MG/ML 5 ML VIAL IVP STA (21:47)
[2016-10-25 22:18] LABS: Anisocytosis Slight; Basophils # (A) 0.1 k/uL (0-0.2); Basophils % (A) 1 %; CH 30.4; CHCM 32.3; Eosinophils # (A) 0.1 k/uL (0-0.7); Eosinophils % (A) 1 %; HCT 50.8 % (39.0-53.0); HDW 3.26; Luc # (Auto) 0.34; Luc % (Auto) 2; Lymphocytes # (A) 1.3 k/uL (1.0-4.8); Lymphocytes % (A) 6 %; MCH 29.7 pg (25.0-35.0); MCHC 31.4 g/dL (31.0-37.0); MCV 94.6 fL (80.0-100.0); Monocytes # (A) 0.8 k/uL (0-1.0); Monocytes % (A) 4 %; Neutrophils # (A) 20.2 k/uL (1.3-7.7); Neutrophils % (A) 88 %; RBC 5.37 m/uL (4.30-5.90); RDW 17.1 % (11.5-15.5); WBC 22.9 k/uL (3.8-10.6); WBC (Perox) 21.97
--- NOTE | 2016-10-25 22:30 | ED ---
Recheck HPI - General Chief Complaint: Recheck/Abnormal Lab/Rx Stated Complaint: Abn Labs Time Seen by Provider: 10/25/16 21:25 Source: EMS Mode of arrival: EMS Limitations: altered mental status - History of Present Illness Initial Comments: This patient is a 61-year-old man sent over from the long-term after he had labs performed today that reportedly show elevated BUN and creatinine. History from the patient is a bit limited as he does appear to have some underlying dementia. The patient does have some chronic complaints but he is denying anything new. He states that he has some low back pain that has been bothering him but this is chronic. Patient denies shortness of breath. Patient has had an indwelling catheter and he is not complaining of any pain is related to this. Complaint: abnormal lab -: hour(s) Returns Today for: Called Because of Abnormal Lab/Test Symptoms Since Prior Visit: no new symptoms Context: called for abnormal lab result Associated Symptoms: none - Related Data Home Medications Medication Instructions Recorded Confirmed Fenofibrate Nanocrystallized 145 mg PO HS 07/27/16 10/25/16 [Tricor] Finasteride [Proscar] 5 mg PO HS@199907/27/16 10/25/16 Gabapentin [Neurontin] 300 mg PO BID 07/27/16 10/25/16 Metoprolol Tartrate [Lopressor] 100 mg PO BID 07/27/16 10/25/16 Niacin [Niacin ER] 500 mg PO HS 07/27/16 10/25/16 Allopurinol [Zyloprim] 100 mg PO DAILY 08/15/16 10/25/16 Furosemide [Lasix] 40 mg PO DAILY 08/15/16 10/25/16 Spironolactone [Aldactone] 25 mg PO DAILY 08/15/16 10/25/16 buPROPion HCL [Wellbutrin XL] 300 mg PO HS@199908/15/16 10/25/16 Diltiazem Oral [Cardizem*] 60 mg PO QID@08,12,16,20 09/07/16 10/25/16 Omeprazole [PriLOSEC] 20 mg PO DAILY 10/07/16 10/25/16 Warfarin [Coumadin] 1.25 mg PO HS 10/07/16 10/25/16 Amino Acids/Protein Hydrolys 30 ml PO BID 10/25/16 10/25/16 [Pro-Stat Supplement] Collagenase [Santyl] 1 applic TOPICAL HS@199910/25/16 10/25/16 Cyanocobalamin (Vitamin B-12) 1,000 mcg PO HS 10/25/16 10/25/16 [Vitamin B-12] Insulin Glargine [Lantus] 25 unit SQ HS@199910/25/16 10/25/16 Multivitamin [Men's Multi-Vitamin] 1 tab PO HS 10/25/16 10/25/16 traMADol HCl [Ultram] 50 mg PO TID@0800,1200,1800 10/25/16 10/25/16 Previous Rx's Medication Instructions Recorded Acetaminophen Tab [Tylenol] 1,000 mg PO Q6HR PRN tab 09/01/16 DAPTOmycin [Cubicin] 500 mg IV Q24H #42 vial 09/01/16 Thiamine [Vitamin B-1] 100 mg PO BID tab 09/01/16 Allergies Allergy/AdvReac Type Severity Reaction Status Date / Time sulfamethoxazole Allergy Rash/Hives Verified 10/25/16 21:57 [From Bactrim] trimethoprim [From Bactrim] Allergy Rash/Hives Verified 10/25/16 21:57 Review of Systems ROS Statement: Those systems with pertinent positive or pertinent negative responses have been documented in the HPI. ROS Other: All systems not noted in ROS Statement are negative. Limitations: ROS unobtainable due to patients medical condition Constitutional: Denies: fever Respiratory: Denies: cough, dyspnea Cardiovascular: Denies: chest pain, palpitations, orthopnea, syncope Musculoskeletal: Reports: as per HPI, back pain Past Medical History Past Medical History: Atrial Fibrillation, Diabetes Mellitus, Eye Disorder, Hearing Disorder / Deafness, Hyperlipidemia, Hypertension, Osteoarthritis (OA), Prostate Disorder, Sleep Apnea/CPAP/BIPAP, Vascular Disorder Additional Past Medical History / Comment(s): Pt fell 01/06/16 R humeral fracture. Other HX: NIDDM, irritable bowel syndrome, numerous wounds bilateral legs and feet and an abdominal wound after previous hernia surgery with mesh - has been tx in wound center and has had several debridements, currently being treated in wound center for bilateral lower leg ulcers, charcot Lfoot, hx of diabetic villareal grade 2 bilateral foot ulcers, abdominal wall ulceration with I&D, urinary calculus., BPH, bilateral hands and feet peripheral neuropathy, L eye astigmatism, edentulous. History of Any Multi-Drug Resistant Organisms: MRSA, VRE Date of last positivie culture/infection: 09/20/16 VRE and MRSA MDRO Source:: Heel-MRSA and VRE Past Surgical History: Bladder Surgery, Hernia Repair, Tonsillectomy Additional Past Surgical History / Comment(s): I and D abdominal wall ulcer s/p abdominal hernia repair with mesh-infected post op and mesh exposed, wound center tx for bilateral feet ulcers-healed and discharged 03/25/14, current wound center tx for bilateral lower leg ulcers, picc line insertion and removal , cystoscopy which was unsuccessful for removing bladder stone. Past Anesthesia/Blood Transfusion Reactions: No Reported Reaction Past Psychological History: Anxiety, Depression Smoking Status: Current every day smoker - Past Family History Brother(s) Family Medical History: Cancer Additional Family Medical History / Comment(s): Breast cancer Father Family Medical History: Diabetes Mellitus Additional Family Medical History / Comment(s): Father of a brain tumor in his early 80s Mother Family Medical History: No Reported History Additional Family Medical History / Comment(s): Still living. General Exam Limitations: altered mental status General appearance: alert, obese, other (This patient is chronically unwell- appearing. He is alert but slightly slow to respond to questioning.) Head exam: Present: atraumatic, normocephalic Eye exam: Present: normal appearance. Absent: scleral icterus, conjunctival injection ENT exam: Present: mucous membranes dry Neck exam: Present: normal inspection, full ROM Respiratory exam: Present: rhonchi. Absent: respiratory distress, wheezes, rales, stridor Cardiovascular Exam: Present: tachycardia (Rate approximately 128 at my exam), irregular rhythm, systolic murmur. Absent: diastolic murmur, rubs, gallop GI/Abdominal exam: Present: distended, diminished bowel sounds, hernia (Patient has what appears to be an incisional hernia in the epigastric area that is nontender.). Absent: tenderness, guarding, rebound, rigid Extremities exam: Present: normal inspection, pedal edema. Absent: calf tenderness Neurological exam: Present: alert, CN II-XII intact. Absent: oriented X3 ( Oriented to person and recognizes she is in healthcare facility but could not state the date), motor sensory deficit Skin exam: Present: warm, dry, intact. Absent: normal color (Bilateral lower extremities are somewhat dusky with chronic stasis change) Course Vital Signs 10/25/16 10/25/16 10/25/16 21:27 21:32 22:21 Temperature 99.0 F Pulse Rate 129 H 123 H Respiratory 20 Rate Blood Pressure 88/52 92/50 O2 Sat by Pulse 97 Oximetry 10/25/16 10/26/16 10/26/16 23:08 00:25 01:56 Temperature 98.7 F 98.0 F Pulse Rate 120 H 116 H 130 H Respiratory 18 20 16 Rate Blood Pressure 104/56 100/68 91/61 O2 Sat by Pulse 97 97 95 Oximetry 10/26/16 10/26/16 10/26/16 02:53 03:26 03:36 Temperature 98.0 F 98.0 F Pulse Rate 133 H 116 H 118 H Respiratory 18 22 20 Rate Blood Pressure 100/58 137/102 102/57 O2 Sat by Pulse 90 L 98 Oximetry 10/26/16 03:48 Temperature 98.0 F Pulse Rate 112 H Respiratory 18 Rate Blood Pressure 105/54 O2 Sat by Pulse 99 Oximetry - Reevaluation(s) Reevaluation #1: 10/26/16 03:42 Following patient's fluid bolus is sats were only reading to approximately 85 and he did looked like he was having some increased work of breathing. The patient therefore intubated. Also pressures were a borderline following his fluid resuscitation and levofed started. Procedures - Intubation Time Out Performed: Yes Sedative: Etomidate Paralytic: Succinylcholine Laryngoscope: Juan Size: 3 ET Tube Size: 8 ET Tube Uncuffed: No Tube Placement Confirmation: visualized tube passing through cords, equal breath sounds bilaterally, no breath sounds over epigastrium, confirmation by capnometry Patient Tolerated Procedure: well, no complications Intubation Complications: none Medical Decision Making - Medical Decision Making This patient is a 61-year-old man sent from long-term to have recheck of abnormal vital signs and over concerned she may be requiring hemodialysis. The patient on arrival is found to have atrial fibrillation with a rapid ventricular rate. He is also hypotensive. He is started on IV fluids and Cardizem. Further workup of the patient included chest x-ray which showed suspicion of free air, and a computed tomography scan of the abdomen and pelvis was added. This finding was to some extent unexpected as the patient was not complaining of abdominal pain and his exam is not tender. The computed tomography scan does show free air and his suspected he has perforation related to the incisional hernia, though the definite source could not be identified. The patient is started on IV antibiotics related to the perforation and I discussed his case with Dr. Barrett who is the surgeon on-call. The patient is not stable for going directly to the OR as his INR is greater than 10. Vitamin K and fresh frozen plasma ordered to correct his coagulopathy. I also discussed the case with Dr. Carranza, who is the terrestrial ecologist on-call. It is the consensus of opinion between the 3 of us that he does require higher level surgical intensive care for his multiple medical problems. I did attempt to contact the patient's at the number in the chart. I called 3 times and the number goes to a voicemail. By emergent consent, patient will be transferred, I discussed the case with Dr. Alas at [facility] who will accept the patient for transfer. Staff was subsequent only able to find addition contact information for family and I spoke with the patient's stepson David Good, at [phone]. He did express that to his knowledge the patient remains full code and would want any necessary surgery. He was in agreement with transfer, and was then going to contact his mother, the patient's . - Lab Data Result diagrams: 10/25/16 21:31 10/25/16 21:31 Lab Results 10/25/16 10/25/16 10/25/16 Range/Units 21:31 21:31 21:31 WBC 22.9 H (3.8-10.6) k/uL RBC 5.37 (4.30-5.90) m/uL Hgb 16.0 (13.0-17.5) gm/dL Hct 50.8 (39.0-53.0) % MCV 94.6 (80.0-100.0) fL MCH 29.7 (25.0-35.0) pg MCHC 31.4 (31.0-37.0) g/dL RDW 17.1 H (11.5-15.5) % Plt Count 787 H (150-450) k/uL Neutrophils % 88 % Lymphocytes % 6 % Monocytes % 4 % Eosinophils % 1 % Basophils % 1 % Neutrophils # 20.2 H (1.3-7.7) k/uL Lymphocytes # 1.3 (1.0-4.8) k/uL Monocytes # 0.8 (0-1.0) k/uL Eosinophils # 0.1 (0-0.7) k/uL Basophils # 0.1 (0-0.2) k/uL Anisocytosis Slight PT (9.0-12.0) sec INR (<1.2) APTT (22.0-30.0) sec Sodium 138 (137-145) mmol/L Potassium 4.1 (3.5-5.1) mmol/L Chloride 99 (98-107) mmol/L Carbon Dioxide 17 L (22-30) mmol/L Anion Gap 22 mmol/L BUN 81 H* (9-20) mg/dL Creatinine 5.85 H* (0.66-1.25) mg/dL Est GFR (MDRD) Af Amer 12 (>60 ml/min/1.73 sqM) Est GFR (MDRD) Non-Af 10 (>60 ml/min/1.73 sqM) Glucose 158 H (74-99) mg/dL Plasma Lactic Acid Cristiano (0.7-2.0) mmol/L Calcium 8.9 (8.4-10.2) mg/dL Magnesium 2.0 (1.6-2.3) mg/dL Total Bilirubin 1.1 (0.2-1.3) mg/dL AST 40 (17-59) U/L ALT 30 (21-72) U/L Alkaline Phosphatase 132 H (38-126) U/L Total Creatine Kinase 77 (55-170) U/L CK-MB (CK-2) 2.4 (0.0-2.4) ng/mL CK-MB (CK-2) Rel Index 3.1 Troponin I 0.078 H* (0.000-0.034) ng/mL Total Protein 6.1 L (6.3-8.2) g/dL Albumin 3.0 L (3.5-5.0) g/dL Blood Type Blood Type Recheck Antibody Screen Transfuse Plasma Spec Expiration Date 10/25/16 10/26/1610/26/17 Range/Units 21:31 01:13 01:34 WBC (3.8-10.6) k/uL RBC (4.30-5.90) m/uL Hgb (13.0-17.5) gm/dL Hct (39.0-53.0) % MCV (80.0-100.0) fL MCH (25.0-35.0) pg MCHC (31.0-37.0) g/dL RDW (11.5-15.5) % Plt Count (150-450) k/uL Neutrophils % % Lymphocytes % % Monocytes % % Eosinophils % % Basophils % % Neutrophils # (1.3-7.7) k/uL Lymphocytes # (1.0-4.8) k/uL Monocytes # (0-1.0) k/uL Eosinophils # (0-0.7) k/uL Basophils # (0-0.2) k/uL Anisocytosis PT >130.0 H (9.0-12.0) sec INR >10.0 H* (<1.2) APTT 70.2 H (22.0-30.0) sec Sodium (137-145) mmol/L Potassium (3.5-5.1) mmol/L Chloride (98-107) mmol/L Carbon Dioxide (22-30) mmol/L Anion Gap mmol/L BUN (9-20) mg/dL Creatinine (0.66-1.25) mg/dL Est GFR (MDRD) Af Amer (>60 ml/min/1.73 sqM) Est GFR (MDRD) Non-Af (>60 ml/min/1.73 sqM) Glucose (74-99) mg/dL Plasma Lactic Acid Cristiano 2.0 (0.7-2.0) mmol/L Calcium (8.4-10.2) mg/dL Magnesium (1.6-2.3) mg/dL Total Bilirubin (0.2-1.3) mg/dL AST (17-59) U/L ALT (21-72) U/L Alkaline Phosphatase (38-126) U/L Total Creatine Kinase (55-170) U/L CK-MB (CK-2) (0.0-2.4) ng/mL CK-MB (CK-2) Rel Index Troponin I (0.000-0.034) ng/mL Total Protein (6.3-8.2) g/dL Albumin (3.5-5.0) g/dL Blood Type O Negative Blood Type Recheck No Antibody Screen NEGATIVE Transfuse Plasma 10/26/2016 Spec Expiration Date 10/29/2016 - 2334 - EKG Data -: EKG Interpreted by Ca EKG shows normal: axis (Left axis deviation), intervals (Normal) Rate: tachycardia (Underlying rhythm appears to be atrial fibrillation and the rate is approximately 123 on the EKG) Interpretation: other (There appears to be old anterolateral infarct and old inferior infarct.) Critical Care Time Critical Care Time: Yes (45 minutes) Disposition Clinical Impression: Acute renal failure, Atrial fibrillation with rapid ventricular response, Hypotension, Pneumoperitoneum, Leukocytosis, Coumadin toxicity, Delirium due to another medical condition Disposition: OTHER INSTITUTION NOT DEFINED Condition: Critical Referrals: Jarek Lofton DO [Primary Care Provider] - 1-2 days - Out of Hospital Transfer - Req. Specs Out of Hospital Transfer - Requested Specifics: Surgical ICU
[2016-10-25 22:34] LABS: Calcium 8.9 mg/dL (8.4-10.2); Potassium 4.1 mmol/L (3.5-5.1); Total Bilirubin 1.1 mg/dL (0.2-1.3); Total Protein 6.1 g/dL (6.3-8.2)
--- NOTE | 2016-10-25 22:41 | XR ---
EXAM: XR Chest, 1 View CLINICAL HISTORY: Reason: dysrhythmia TECHNIQUE: Frontal view of the chest. COMPARISON: No relevant prior studies available. FINDINGS: Lungs: Low lung volumes. Bibasilar opacities, likely atelectasis. Pleural space: No pleural effusion. No pneumothorax. Heart: Cardiomegaly. Mediastinum: Unremarkable. Upper abdomen: Curvilinear opacity at the right lung base, likely thickened minor fissure and adjacent atelectasis minor versus less likely hemidiaphragm with right upper quadrant free air. Stomach is mildly distended. Postsurgical changes near the GE junction. IMPRESSION: 1. Curvilinear density at the right lung base likely thickened minor fissure and adjacent atelectasis. This less likely represents diaphragm with right upper quadrant free air. However, left lateral decubitus view could be used for confirmation. 2. Low lung volumes with bibasilar linear opacities, likely atelectasis. 3. Cardiomegaly. No evidence of pulmonary edema. [employer] 10/25/16 22:36 Call Doctor Regarding Above results, called Dr. Aguila on 10/25 22:35 (-04:00)
[2016-10-25 22:48] LABS: Creatine Kinase MB 2.4 ng/mL (0.0-2.4)
[2016-10-25 22:49] LABS: Troponin I 0.078 ng/mL (0.000-0.034)
[2016-10-25 23:11] LABS: Prothrombin Time >130.0 sec (9.0-12.0)
[2016-10-25 23:13] LABS: INR >10.0 (<1.2); Partial Thromboplastin Time 70.2 sec (22.0-30.0)
--- NOTE | 2016-10-25 23:40 | CT ---
EXAM: CT Abdomen and Pelvis Without Intravenous Contrast CLINICAL HISTORY: Reason: possible free air TECHNIQUE: Axial computed tomography images of the abdomen and pelvis without intravenous contrast. Coronal and sagittal reformats were obtained. CTDI is 43.50 mGy and DLP is 2543.90 mGy-cm. This CT exam was performed using one or more of the following dose reduction techniques: automated exposure control, adjustment of the mA and/or kV according to patient size, and/or use of iterative reconstruction technique. COMPARISON: Chest x-ray from earlier same day. FINDINGS: Lower thorax: Small left pleural effusion. Scattered bibasilar atelectasis. ABDOMEN: Liver: Unremarkable. Gallbladder and bile ducts: Unremarkable. No calcified stones. No ductal dilation. Pancreas: Atrophic. No ductal dilation. Spleen: Unremarkable. No splenomegaly. Adrenals: Unremarkable. No mass. Kidneys and ureters: 8 mm nonobstructing upper pole right renal calculus. Stomach and bowel: Small narrow based supraumbilical ventral hernia at site of prior hernia repair containing loops of small bowel. Multiple upstream dilated loops of fluid-filled small bowel up to 5 cm diameter consistent with small bowel obstruction. Distal small bowel is decompressed. Extensive stool in the right hemicolon. Appendix: Not seen, likely surgically absent.. PELVIS: Bladder: Urinary bladder decompressed by Harris catheter. 2 small high- density foci in the bladder near the Harris. Reproductive: Unremarkable as visualized. ABDOMEN and PELVIS: Intraperitoneal space: Moderate intraperitoneal free air, prominently beneath the right hemidiaphragm compatible with bowel perforation. Mild mesenteric edema, and moderate amount of free fluid in the right hemiabdomen. Bones/joints: Multiple old right rib fractures. No acute fracture. Vasculature: Moderate atherosclerotic disease abdominal aorta and branches without aneurysm. Lymph nodes: Unremarkable. No enlarged lymph nodes. IMPRESSION: 1. Small bowel obstruction secondary to supraumbilical hernia, complicated by bowel perforation with moderate free air and fluid in the right hemiabdomen. 2. Small left pleural effusion. [employer] 10/25/16 23:43 Call Doctor Regarding Bowel Perforation with Free Air, called Dr. Aguila on 10/25 23:42 (-04:00)
[2016-10-25] MEDS ORDERED: PIPERACILLIN-TAZOBACTAM 3.375 GM in DEXTROSE/WATER 1 50ML.BAG IVPB STA (23:47)
[2016-10-26] MEDS ORDERED: PHYTONADIONE 2 MG in SODIUM CHLORIDE 0.9% 50 ML IVPB STA (00:46)
[2016-10-26] MEDS ORDERED: NALOXONE 0.4 MG/ML 1 ML VIAL IV PRN (00:47)
[2016-10-26] MEDS ORDERED: ACETAMINOPHEN SUPPOSITORY 650 MG SUPP RECTAL PRN (00:47)
[2016-10-26] MEDS ORDERED: SODIUM CHLORIDE 0.9% 1,000 ML IV SCH (01:00)
[2016-10-26] MEDS: SODIUM CHLORIDE 0.9% 2,000 ML IV ONE ×2 (01:02)
[2016-10-26 01:57] VITALS: TEMP 98
[2016-10-26] MEDS ORDERED: NOREPINEPHRIN 4 MG-0.9% NS PMX 4 MG/250 ML ML IV ONE (02:22)
[2016-10-26] MEDS ORDERED: ETOMIDATE 2 MG/ML 10 ML VIAL IVP STA (03:21)
[2016-10-26 03:50] VITALS: BP 105/54; PULSE 112; RESP 18
[2016-10-26] MEDS ORDERED: PROPOFOL 500 MG in EMPTY BAG 1 BAG IV ONE (03:58)
[2016-10-26] MEDS ORDERED: FAMOTIDINE 20 MG/2 ML VIAL IV SCH (09:00)
--- NOTE | 2016-10-28 08:38 | P.CON ---
Consult Note - . Consult date: 10/25/16 Assessment/Plan:: I was called to see this patient in the emergency room. He was found to have evidence of the free air under the diaphragm. However his INR was over 10 to with the first frozen plasma and vitamin K surgery. However while in the emergency room his condition deteriorated with respiratory distress requiring intubation. The plan was to admit him to the ICU but the intensive is recommended to transfer to a tertiary center.
== END 2016-10-26 04:14 | disposition short-term general hospital (02) ==
LOC: EC 21:20
DX: N17.9 Acute kidney failure, unspecified (principal); I48.91 Unspecified atrial fibrillation; I95.9 Hypotension, unspecified; I31.9 Disease of pericardium, unspecified; T45.515A Adverse effect of anticoagulants, initial encounter; D72.829 Elevated white blood cell count, unspecified; E11.9 Type 2 diabetes mellitus without complications; I10 Essential (primary) hypertension; E78.5 Hyperlipidemia, unspecified; F32.9 Major depressive disorder, single episode, unspecified; F05 Delirium due to known physiological condition; N40.0 Benign prostatic hyperplasia without lower urinary tract symptoms; M19.90 Unspecified osteoarthritis, unspecified site; F17.200 Nicotine dependence, unspecified, uncomplicated; Z88.2 Allergy status to sulfonamides; Z79.01 Long term (current) use of anticoagulants; Z79.4 Long term (current) use of insulin; Z79.891 Long term (current) use of opiate analgesic; Z79.899 Other long term (current) drug therapy
CPT/HCPCS: 99291; 31500; 96365; 96366 ×5; 96368; 96375; 36415 ×2; 93005; 86900; 86901; 80053; 82550; 82553; 83605; 83735; 84484; 85025; 85610; 85730; 86850; 87040; 71010; 74176; P9059; J3430; J2543; J2704